=== PATIENT | female | born 1950 | race Caucasian/White ===

== ENCOUNTER 2020-07-26 10:07 | Outpatient (REF) | payer MEDICARE, SELFPAY ==
[2020-07-26 11:16] LABS: MANUAL DIFF FLAG NO
[2020-07-26 11:30] LABS: Basophils Absolute Auto 0.1 X10*3/uL (0.0-0.2); Basophils Percent Auto 0.8 % (0-2); Eosinophils Absolute Auto 0.3 X10*3/uL (0.0-0.4); Eosinophils Percent Auto 3.4 % (0-4); Hematocrit 34.8 % (37-47); Hemoglobin 10.6 g/dl (12.0-16.0); Imm Gran Abs Auto 0.13 X10*3/uL (0.00-0.03); Imm Gran Pct Auto 1.8 % (0.0-0.4); Lymphocytes Absolute Auto 1.1 X10*3/uL (1.2-4.9); Mean Corpuscular HGB Conc 30.5 g/dl (31.0-35.0); Mean Corpuscular Hemoglobin 28.5 pg (27.0-33.0); Mean Corpuscular Volume 93.5 fL (80-98); Mean Platelet Volume 10.3 fL (9.4-12.3); Monocytes Absolute Auto 0.6 X10*3/uL (0.1-1.2); Monocytes Percent Auto 8.6 % (2-11); Neutrophils Absolute Auto 5.1 X10*3/uL (2.0-8.3); Neutrophils Percent Auto 70.4 % (45-73); Platelet Count 334 X10*3/uL (160-400); Red Blood Count 3.72 X10*6/uL (4.20-5.50); Red Cell Distribution Width 19.1 % (11.0-16.0); White Blood Count 7.3 X10*3/uL (4.8-10.8)
[2020-07-26 12:34] LABS: Alanine Aminotransferase 15 U/L (0-31); Albumin Level 4.2 g/dL (3.5-5.0); Alkaline Phosphatase 68 U/L (39-117); Anion Gap 14 (12-20); Aspartate Amino Transferase 19 U/L (5-31); Bilirubin Total 0.6 mg/dL (0.0-1.0); Blood Urea Nitrogen 29 mg/dL (9-16); C Reactive Protein 0.91 mg/dL (< or = 0.50); Calcium 9.4 mg/dL (8.4-10.2); Carbon Dioxide 29 mmol/L (22-29); Chloride 103 mmol/L (96-108); Estimated Glomerular Filt Rate 27; Glucose Random 166 mg/dL (60-115); Sodium 140 mmol/L (135-145); Total Protein 6.4 g/dL (6.5-8.0)
[2020-07-30 15:26] LABS: IgA 142 mg/dL (70-320); IgG 643 mg/dL (600-1540); IgM 22 mg/dL (50-300)
[2020-07-30 15:52] LABS: Prot Elec - Albumin 3.6 g/dL (3.8-4.8); Prot Elec - Alpha1 0.4 g/dL (0.2-0.3); Prot Elec - Alpha2 0.9 g/dL (0.5-0.9); Prot Elec - Beta 1 0.5 g/dL (0.4-0.6); Prot Elec - Beta 2 0.3 g/dL (0.2-0.5); Prot Elec - Gamma 0.6 g/dL (0.8-1.7); Prot Elec - Total Protein 6.2 g/dL (6.1-8.1)
== END 2020-07-26 10:08 | disposition home or self-care (01) ==
LOC: HO.HMGCLDS 10:07
DX: M05.79 Rheumatoid arthritis with rheumatoid factor of multiple sites without organ or systems involvement (principal); Z79.899 Other long term (current) drug therapy
CPT/HCPCS: 36415; 80053; 82784; 84155; 84165; 85025; 86140; 86334; 86335

== ENCOUNTER 2020-07-27 09:51 | Outpatient (REF) | payer MEDICARE, SELFPAY ==
[2020-07-27 11:54] LABS: Potassium 5.6 mmol/l (3.3-5.1)
== END 2020-07-27 09:52 | disposition home or self-care (01) ==
LOC: HO.HMGCLDS 09:51
DX: E87.5 Hyperkalemia (principal)
CPT/HCPCS: 84132

== ENCOUNTER → 2020-08-10 09:25 | Outpatient (BNVA) | payer MEDICARE, SELFPAY | PROVIDERS: Visit Provider Student in an Organized Health Care Education/Training Program | DX: M05.9 Rheumatoid arthritis with rheumatoid factor, unspecified (principal); D80.1 Nonfamilial hypogammaglobulinemia; Z79.52 Long term (current) use of systemic steroids; Z79.899 Other long term (current) drug therapy | CPT/HCPCS: 99212 ==

== ENCOUNTER 2020-08-24 09:39 | Outpatient (REF) | payer MEDICARE, SELFPAY ==
--- NOTE | 2020-08-24 09:45 | XR_ITS ---
EXAMINATION: XR KNEE, RIGHT XR KNEE, LEFT CLINICAL INFORMATION: Rheumatoid arthritis. COMPARISON: 06/06/2019 TECHNIQUE: Four views of each knee, including AP and lateral upright views. FINDINGS: Left knee: No fracture or subluxation. There is mild medial compartment joint space narrowing. Compartmental joint spaces are otherwise maintained. Enthesophyte formation of the patella. No joint effusion. Right knee: No fracture or subluxation. Mild medial compartment joint space narrowing. Compartmental joint spaces are otherwise maintained. No joint effusion. Enthesophyte formation of the patella. XR/XR knee RT 4V IMPRESSION: Mild bilateral medial compartment joint space narrowing.
--- NOTE | 2020-08-24 09:45 | XR_ITS ---
EXAMINATION: XR KNEE, RIGHT XR KNEE, LEFT CLINICAL INFORMATION: Rheumatoid arthritis. COMPARISON: 06/06/2019 TECHNIQUE: Four views of each knee, including AP and lateral upright views. FINDINGS: Left knee: No fracture or subluxation. There is mild medial compartment joint space narrowing. Compartmental joint spaces are otherwise maintained. Enthesophyte formation of the patella. No joint effusion. Right knee: No fracture or subluxation. Mild medial compartment joint space narrowing. Compartmental joint spaces are otherwise maintained. No joint effusion. Enthesophyte formation of the patella. XR/XR knee LT 4V IMPRESSION: Mild bilateral medial compartment joint space narrowing.
[2020-08-24 11:29] LABS: Basophils Absolute Auto 0.1 X10*3/uL (0.0-0.2); Basophils Percent Auto 0.7 % (0-2); Eosinophils Absolute Auto 0.3 X10*3/uL (0.0-0.4); Eosinophils Percent Auto 2.2 % (0-4); Hematocrit 39.5 % (37-47); Hemoglobin 12.1 g/dl (12.0-16.0); Imm Gran Pct Auto 1.4 % (0.0-0.4); Lymphocytes Absolute Auto 2.4 X10*3/uL (1.2-4.9); Lymphocytes Percent Auto 16.3 % (20-40); MANUAL DIFF FLAG SCAN; Mean Corpuscular HGB Conc 30.6 g/dl (31.0-35.0); Mean Corpuscular Hemoglobin 28.9 pg (27.0-33.0); Mean Corpuscular Volume 94.3 fL (80-98); Mean Platelet Volume 10.8 fL (9.4-12.3); Monocytes Absolute Auto 1.8 X10*3/uL (0.1-1.2); Monocytes Percent Auto 11.8 % (2-11); Neutrophils Percent Auto 67.6 % (45-73); Platelet Count 303 X10*3/uL (160-400); Red Blood Count 4.19 X10*6/uL (4.20-5.50); Red Cell Distribution Width 15.9 % (11.0-16.0); SCAN SMEAR FLAG 1; White Blood Count 14.8 X10*3/uL (4.8-10.8)
[2020-08-24 11:54] LABS: Alanine Aminotransferase 14 U/L (0-31); Albumin Level 4.2 g/dL (3.5-5.0); Alkaline Phosphatase 65 U/L (39-117); Anion Gap 11 (12-20); Aspartate Amino Transferase 16 U/L (5-31); Bilirubin Total 0.5 mg/dL (0.0-1.0); Blood Urea Nitrogen 36 mg/dL (9-16); C Reactive Protein 0.86 mg/dL (< or = 0.50); Calcium 9.2 mg/dL (8.4-10.2); Carbon Dioxide 32 mmol/L (22-29); Chloride 103 mmol/L (96-108); Estimated Glomerular Filt Rate 33; Glucose Random 101 mg/dL (60-115); Potassium 5.1 mmol/l (3.3-5.1); Sodium 141 mmol/L (135-145); Total Protein 6.7 g/dL (6.5-8.0)
[2020-08-24 12:35] LABS: Erythrocyte Sedimentation Rate 19 MM/HR (0-20)
[2020-08-24 13:12] LABS: SLIDE REVIEW VERIFIED
== END 2020-08-24 09:40 | disposition home or self-care (01) ==
LOC: HO.HMGCX 09:39
PROVIDERS: Visit Provider Student in an Organized Health Care Education/Training Program
DX: M05.9 Rheumatoid arthritis with rheumatoid factor, unspecified (principal)
CPT/HCPCS: 36415; 73564; 80053; 85025; 85652; 86140

== ENCOUNTER → 2020-08-28 11:24 | Outpatient (BNVA) | payer MEDICARE, SELFPAY | PROVIDERS: Visit Provider Internal Medicine Endocrinology, Diabetes & Metabolism | DX: Z13.89 Encounter for screening for other disorder (principal) | CPT/HCPCS: Q3014 ==

== ENCOUNTER → 2020-10-10 12:23 | Outpatient (BNVA) | payer MEDICARE, SELFPAY | PROVIDERS: Visit Provider Student in an Organized Health Care Education/Training Program | DX: Z13.89 Encounter for screening for other disorder (principal) | CPT/HCPCS: Q3014 ==

== ENCOUNTER 2020-12-05 07:25 | Outpatient (REF) | payer MEDICARE, SELFPAY ==
[2020-12-05 11:25] LABS: MANUAL DIFF FLAG NO
[2020-12-05 11:38] LABS: Basophils Absolute Auto 0.1 X10*3/uL (0.0-0.2); Basophils Percent Auto 1.1 % (0-2); Eosinophils Absolute Auto 0.3 X10*3/uL (0.0-0.4); Eosinophils Percent Auto 3.3 % (0-4); Hematocrit 40.2 % (37-47); Hemoglobin 12.6 g/dl (12.0-16.0); Imm Gran Abs Auto 0.09 X10*3/uL (0.00-0.03); Imm Gran Pct Auto 0.9 % (0.0-0.4); Lymphocytes Absolute Auto 1.4 X10*3/uL (1.2-4.9); Lymphocytes Percent Auto 14.5 % (20-40); Mean Corpuscular HGB Conc 31.3 g/dl (31.0-35.0); Mean Corpuscular Volume 89.3 fL (80-98); Mean Platelet Volume 11.6 fL (9.4-12.3); Monocytes Percent Auto 9.8 % (2-11); Neutrophils Absolute Auto 6.9 X10*3/uL (2.0-8.3); Neutrophils Percent Auto 70.4 % (45-73); Platelet Count 250 X10*3/uL (160-400); Red Cell Distribution Width 14.3 % (11.0-16.0); White Blood Count 9.8 X10*3/uL (4.8-10.8)
[2020-12-05 11:54] LABS: Alanine Aminotransferase 15 U/L (0-31); Albumin Level 4.1 g/dL (3.5-5.0); Alkaline Phosphatase 72 U/L (39-117); Anion Gap 15 (12-20); Aspartate Amino Transferase 15 U/L (5-31); Bilirubin Total 0.5 mg/dL (0.0-1.0); Blood Urea Nitrogen 28 mg/dL (9-16); C Reactive Protein 1.44 mg/dL (< or = 0.50); Calcium 9.6 mg/dL (8.4-10.2); Carbon Dioxide 28 mmol/L (22-29); Chloride 103 mmol/L (96-108); Cholesterol 183 mg/dL; Estimated Glomerular Filt Rate 38; Glucose Random 183 mg/dL (60-115); HDL Cholesterol 51 mg/dL; Iron 68 mcg/dL (30-160); LDL Cholesterol Calculated 88 mg/dl; Percent Iron Saturation 22 % (15-50); Potassium 4.5 mmol/L (3.3-5.1); Sodium 141 mmol/L (135-145); Total Iron Binding Capacity 316 mcg/dL (228-428); Total Protein 6.6 g/dL (6.5-8.0); Triglycerides 222 mg/dL; Unsaturated Iron Binding 248 ug/dL
[2020-12-05 12:11] LABS: Erythrocyte Sedimentation Rate 31 MM/HR (0-20)
[2020-12-05 12:33] LABS: Creatinine Urine 159.04 mg/dL; Microalbum/Creatinine Ratio Ur 31.4 ug/mg cr
[2020-12-06 15:27] LABS: Prot Elec - Albumin 3.6 g/dL (3.8-4.8); Prot Elec - Alpha1 0.4 g/dL (0.2-0.3); Prot Elec - Beta 1 0.5 g/dL (0.4-0.6); Prot Elec - Beta 2 0.3 g/dL (0.2-0.5); Prot Elec - Gamma 0.7 g/dL (0.8-1.7); Prot Elec - Total Protein 6.4 g/dL (6.1-8.1)
[2020-12-08 14:32] LABS: IgA 201 mg/dL (70-320); IgG 653 mg/dL (600-1540); IgM 25 mg/dL (50-300)
== END 2020-12-05 07:26 | disposition home or self-care (01) ==
LOC: HO.HMGCLDS 07:25
PROVIDERS: PCP Internal Medicine; Visit Provider Student in an Organized Health Care Education/Training Program
DX: E11.42 Type 2 diabetes mellitus with diabetic polyneuropathy (principal); E11.21 Type 2 diabetes mellitus with diabetic nephropathy; Z79.4 Long term (current) use of insulin; I10 Essential (primary) hypertension; E78.5 Hyperlipidemia, unspecified; E66.01 Morbid (severe) obesity due to excess calories; Z68.41 Body mass index [BMI] 40.0-44.9, adult; R60.0 Localized edema
CPT/HCPCS: 36415; 80053; 80061; 82043; 82784; 82947; 83540; 84155; 84165; 85025; 85652; 86140; 86334; 99212

== ENCOUNTER 2020-12-05 13:09 | Emergency (ER) | payer MEDICARE, SELFPAY ==
--- NOTE | ~2020-12-05 | XR_ITS ---
EXAMINATION: XR CHEST CLINICAL INFORMATION: Congestive heart failure COMPARISON: Chest x-ray 10/02/2017 TECHNIQUE: Frontal portable view of the chest was obtained. 4:58 PM FINDINGS: No significant abnormality is noted involving the heart, lungs, mediastinum, bony thorax or soft tissues. XR/XR chest 1V IMPRESSION: Unremarkable examination.
--- NOTE | ~2020-12-05 | US_ITS ---
EXAMINATION: US VENOUS ULTRASOUND WITH DOPPLER LOWER EXTREMITY, LEFT CLINICAL INFORMATION: Pain COMPARISON: None TECHNIQUE: Ultrasound of the deep veins is performed from the hip to the calf with compression sonography and color and pulse Doppler assessment. Spectral analysis with color-flow imaging is performed. FINDINGS: There is normal venous compression and respiratory variation and augmented flow. The visualized common femoral vein, superficial femoral vein, profunda femoral vein, popliteal vein, and the trifurcation region shows no evidence of deep venous thrombosis. There is no significant popliteal fossa cyst. There is an enlarged left inguinal lymph node measuring 2.4 x 1.2 x 1.6 cm. If the patient's symptoms persist, followup ultrasound in 5 days 7 days might be of value to exclude proximal propagation from a non-visualized calf vein. US/US venous duplex LE LT IMPRESSION: No DVT demonstrated in the left lower extremity. Abnormally enlarged left inguinal lymph node, nonspecific, possibly reactive. Recommend clinical correlation.
--- NOTE | ~2020-12-05 | XR_ITS ---
EXAMINATION: LEFT LOWER LEG, LEFT KNEE AND LEFT HIP AND PELVIS X-RAYS CLINICAL INFORMATION: Fall COMPARISON: None TECHNIQUE: 2 views of the left lower leg, 4 views of the left knee and 3 views of the pelvis and left hip FINDINGS: Left lower leg: Bone alignment is normal. No fracture or dislocation is seen. Joint spaces are normal. There are calcaneal spurs. Soft tissues are otherwise normal. Left knee: Bone alignment is normal. No fracture or dislocation is seen. Joint spaces are normal. There is no joint effusion. There is evidence of atherosclerotic disease. Pelvis and left hip: Bone alignment is normal. No fracture or dislocation is seen. The hip joints are normal. There are degenerative changes of the visualized lower lumbar spine. Soft tissues are normal. XR/XR knee LT 2V IMPRESSION: No fracture or dislocation seen.
--- NOTE | ~2020-12-05 | XR_ITS ---
EXAMINATION: LEFT LOWER LEG, LEFT KNEE AND LEFT HIP AND PELVIS X-RAYS CLINICAL INFORMATION: Fall COMPARISON: None TECHNIQUE: 2 views of the left lower leg, 4 views of the left knee and 3 views of the pelvis and left hip FINDINGS: Left lower leg: Bone alignment is normal. No fracture or dislocation is seen. Joint spaces are normal. There are calcaneal spurs. Soft tissues are otherwise normal. Left knee: Bone alignment is normal. No fracture or dislocation is seen. Joint spaces are normal. There is no joint effusion. There is evidence of atherosclerotic disease. Pelvis and left hip: Bone alignment is normal. No fracture or dislocation is seen. The hip joints are normal. There are degenerative changes of the visualized lower lumbar spine. Soft tissues are normal. XR/XR hip LT w PEL1V IMPRESSION: No fracture or dislocation seen.
--- NOTE | ~2020-12-05 | XR_ITS ---
EXAMINATION: LEFT LOWER LEG, LEFT KNEE AND LEFT HIP AND PELVIS X-RAYS CLINICAL INFORMATION: Fall COMPARISON: None TECHNIQUE: 2 views of the left lower leg, 4 views of the left knee and 3 views of the pelvis and left hip FINDINGS: Left lower leg: Bone alignment is normal. No fracture or dislocation is seen. Joint spaces are normal. There are calcaneal spurs. Soft tissues are otherwise normal. Left knee: Bone alignment is normal. No fracture or dislocation is seen. Joint spaces are normal. There is no joint effusion. There is evidence of atherosclerotic disease. Pelvis and left hip: Bone alignment is normal. No fracture or dislocation is seen. The hip joints are normal. There are degenerative changes of the visualized lower lumbar spine. Soft tissues are normal. XR/XR tibia fibula LT 2V IMPRESSION: No fracture or dislocation seen.
[2020-12-05 13:19] VITALS: BP 160/66; PULSE 67; RESP 16; TEMP 36.6; O2SAT 98; BMI 45.7
--- NOTE | 2020-12-05 16:54 | ED.LOWEXIN ---
HPI - Extremity Injury (Lower) General Chief Complaint: Extremity Injury, Lower Stated Complaint: L LEG SWELLING Time Seen by Provider: 12/05/20 13:29 Source: patient History of Present Illness HPI Narrative: 70-year-old female with a past medical history of CKD, hyperlipidemia, hypertension, GERD, diabetes, edema, morbid obesity, neuropathy, presenting to the ED sent in by PCP for DVT rule out. Reports left lower extremity swelling and pain noted yesterday. Admits to mechanical fall while cleaning bath tub last fell on bilateral knees/left side, denies head trauma or LOC. denies numbness, tingling, weakness, urinary incontinence/retention, shortness of breath, chest pain, history of blood clots MD complaint: leg injury Related Data Home Medications Medication Instructions Recorded Confirmed acetaminophen 500 mg tablet 500 mg PO Q6H PRN 08/10/20 12/05/20 albuterol sulfate 90 mcg/actuation 2 puff INHALATION Q4-6H PRN 08/10/20 12/05/20 aerosol inhaler aspirin 81 mg tablet,delayed 81 mg PO DAILY 08/10/20 12/05/20 release calcium carbonate 600 mg calcium 600 mg PO BID 08/10/20 12/05/20 (1,500 mg) tablet coenzyme [id number] 100 mg-100 cap PO 08/10/20 12/05/20 unit capsule lansoprazole 15 mg capsule,delayed 15 mg PO DAILY 08/10/20 12/05/20 release blood sugar diagnostic #10 ea 08/28/20 12/05/20 pen needle, diabetic 32 gauge x #50 ea 08/28/20 12/05/20 5/32 sub-q insulin device, 40 unit #30 ea 08/28/20 12/05/20 flu vacc [id number](65yr up)-PF 240 ml IM ONCE 11/16/20 11/19/20 mcg/0.7 mL intramuscular syringe Previous Rx's Medication Instructions Recorded ferrous sulfate 325 mg (65 mg 325 mg PO DAILY #30 tab 07/27/20 iron) tablet insulin glargine 100 unit/mL (3 15 unit SUBCUT BEDTIME 90 Days #15 08/28/20 mL) subcutaneous pen ml insulin lispro 100 unit/mL See Rx Instructions SUBCUT DAILY 08/28/20 subcutaneous solution 90 Days #90 ml metformin 500 mg tablet 500 mg PO DAILY 90 Days #90 tab 08/28/20 sitagliptin 50 mg tablet 50 mg PO DAILY 90 Days #90 tab 08/28/20 leflunomide 20 mg tablet 20 mg PO DAILY #30 tab 10/10/20 prednisone 5 mg tablet 5 mg PO DAILY #30 tab 10/10/20 amlodipine 10 mg tablet 10 mg PO DAILY #90 tab 11/16/20 atenolol 50 mg tablet 50 mg PO DAILY #90 tab 11/16/20 bumetanide 1 mg tablet 1 mg PO DAILY #90 tab 11/16/20 gabapentin 300 mg capsule 300 mg PO BEDTIME #90 cap 11/16/20 lisinopril 40 mg tablet 40 mg PO DAILY #90 tab 11/16/20 pravastatin 40 mg tablet 40 mg PO BEDTIME #90 tab 11/16/20 Allergies Allergy/AdvReac Type Severity Reaction Status Date / Time codeine [Codeine] Allergy Severe DIFFICULTY Verified 11/19/20 01:02 BREATHING Penicillins AdvReac Unknown stomach Verified 11/19/20 01:02 upset Review of Systems Review of Systems: Constitutional: No Fever, No Chills, No Night Sweats Cardiovascular: No Chest Pain, No SOB, No Dyspnea on Exertion, + Edema Respiratory: No Cough, No Smoke Exposure, No Dyspnea Gastrointestinal: No Nausea, No Vomiting, No Diarrhea, No Constipation, No Abdominal pain, No Hematochezia, No Melena Genitourinary: No Dysuria, No Urinary Frequency, No Hematuria, No Urinary Incontinence/retention Musculoskeletal: +joint pain, No Myalgias, + Joint Swelling Skin: No Skin Lesions, No rash Neuro: No Weakness, No Numbness, No Paresthesias, No Loss of Consciousness, No Dizziness, No Headache Yes all other systems are reviewed and are negative [facility] Past Medical History Attestation statement: The following information was validated with the patient. 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 Morbid obesity due to excess calories Type 2 diabetes mellitus with diabetic polyneuropathy Surgical History History of back surgery Hx laparoscopic cholecystectomy Hx of cataract surgery Hx of colonoscopy Hx of tonsillectomy Family History Family History (Updated 12/05/20 @ 12:31 by Tricia Ramos MA) Mother Diabetes HTN (hypertension) CVD (cardiovascular disease) Father Hodgkin disease Social History Social History Alcohol intake: never Smoking Status: Former smoker Advance Directives: No Advance Directives Information Provided: Yes Physical Exam Vital Signs: Vital Signs: Last Vital Signs Temp 98 F 12/05/20 13:19 Pulse 67 12/05/20 13:19 Resp 16 12/05/20 13:19 BP 160/66 H 12/05/20 13:19 Pulse Ox 98 12/05/20 13:19 Body Mass Index 45.7 Const: General: cooperative and healthy appearing Orientation/consciousness: patient oriented x3 Limitations: no limitations HENMT: Head: Yes normal to inspection Ears: hearing grossly normal bilaterally General nose exam: Normal external nose present Face and sinus: Yes normal facial exam Eyes: General: appearance normal, both eyes and all related structures EOM: EOMs intact bilaterally Neck: Neck: Yes normal visual inspection Resp: Effort & Inspection: normal respiratory effort Auscultation: clear to auscultation bilaterally and no wheezes Cardio: Rate: regular rate Heart sounds: S1 normal heart sound present and S2 normal heart sound present Peripheral pulses: dorsalis pedis present GI: Inspection: Yes normal to inspection Palpation (GI): Soft to palpation and nontender Skin: Rashes: no rashes Neuro: General: patient oriented x3 and tone normal Extrem: Other: LLE with mild swelling. 2+ pitting edema. No calf ttp L hip with mild tenderness to palpation. Full range of motion intact Left knee with healing ecchymosis/ swelling. Limited flexion due to pain. Left lateral tipb/fib with tenderness to palpation and swelling L ankle/foot without ttp RLE 1+ pitting edema Course Course Course Narrative: -venous duplex negative for DVT in the left lower extremity. Abnormally enlarged left inguinal lymph node, nonspecific, possibly reactive >> patient denies UTI symptoms, symptoms. Discussed these findings with patient in close follow-up with PCP -left hip/pelvis, left knee, and left tib fib x-rays unremarkable -CXR unremarkable Results discussed with patient including worrisome signs and symptoms and strict return precautions. Patient is to follow up with PCP. She verbalized understanding feel safe for discharge home MDM - Extremity Injury (Lower) MDM Narrative Medical decision making narrative: 70-year-old female with a past medical history of CKD, hyperlipidemia, hypertension, GERD, diabetes, edema, morbid obesity, neuropathy, presenting to the ED sent in by PCP for DVT rule out. On exam VSS, NAD/well-appearing, physical exam as above. Concern for DVT vs bruising/inflammatory response from trauma. Lower concern for CHF. Rule out fracture. Plan: Venous duplex, x-rays, re-evaluate Medical Records Attestation: I reviewed the patient's medical records. Lab Data Attestation: I reviewed the patient's lab results. Discharge Plan Discharge Clinical Impression: Leg edema, left Knee contusion Qualifiers: Encounter type: initial encounter Laterality: left Qualified Code(s): S80.02XA - Contusion of left knee, initial encounter Patient Disposition: Home, Self-Care Instructions: Edema (ED) Additional Instructions: Your imaging studies were negative for any blood clots, or fractures today in the emergency department The ultrasound did show an enlarged inguinal lymph node on the left side, this should be evaluated by her primary care doctor Ice and elevate your leg Follow-up with her primary care doctor Take Tylenol at home for pain/swelling Is swelling persists or worsens, pain worsens, have weakness, any shortness of breath or chest pain return to the ED Prescriptions: No Action ferrous sulfate 325 mg (65 mg iron) tablet 325 mg PO DAILY Qty: 30 RF: 5 Fluzone HighDose Quad 20-21 PF 240 mcg/0.7 mL syringe IM ONCE RF: 0 amlodipine 10 mg tablet 10 mg PO DAILY Qty: 90 RF: 0 atenolol 50 mg tablet 50 mg PO DAILY Qty: 90 RF: 0 bumetanide 1 mg tablet 1 mg PO DAILY Qty: 90 RF: 0 gabapentin [Neurontin] 300 mg capsule 300 mg PO BEDTIME Qty: 90 RF: 0 lisinopril 40 mg tablet 40 mg PO DAILY Qty: 90 RF: 0 pravastatin 40 mg tablet 40 mg PO BEDTIME Qty: 90 RF: 0 leflunomide 20 mg tablet 20 mg PO DAILY Qty: 30 RF: 3 prednisone 5 mg tablet 5 mg PO DAILY Qty: 30 RF: 3 (DME) OneTouch Ultra Blue Test Strip Strip See Rx Instructions ea .ROUTE QID Qty: 10 RF: 0 (DME) V-GO 40 Device See Rx Instructions unit .ROUTE DAILY Qty: 30 RF: 0 (DME) pen needle, diabetic 32 gauge x 5/32 needle See Rx Instructions ea subcut DAILY Qty: 50 RF: 0 insulin glargine 100 unit/mL (3 mL) insulin pen 15 unit subcut BEDTIME 90 Days Qty: 15 RF: 1 insulin lispro 100 unit/mL solution See Rx Instructions subcut DAILY 90 Days Qty: 90 RF: 1 metformin 500 mg tablet 500 mg PO DAILY 90 Days Qty: 90 RF: 1 Januvia 50 mg tablet 50 mg PO DAILY 90 Days Qty: 90 RF: 1 albuterol sulfate 90 mcg/actuation HFA aerosol inhaler 2 puff inhalation Q4-6H PRNRF: 0 acetaminophen [Tylenol Extra Strength] 500 mg tablet 500 mg PO Q6H PRNRF: 0 aspirin [Adult Low Dose Aspirin] 81 mg tablet,delayed release (DR/EC) 81 mg PO DAILY RF: 0 coenzyme [id number] 100-100 mg-unit capsule PO RF: 0 lansoprazole [Prevacid] 15 mg capsule,delayed release(DR/EC) 15 mg PO DAILY RF: 0 calcium carbonate [Calcium 600] 600 mg calcium (1,500 mg) tablet 600 mg PO BID RF: 0 Referrals: Lyndsay Yan MD [Primary Care Provider] - 2 days
== END 2020-12-05 18:38 | disposition home or self-care (01) ==
PROVIDERS: Emergency Provider Emergency Medicine; PCP Internal Medicine
DX: S80.02XA Contusion of left knee, initial encounter (principal); R60.0 Localized edema; M25.562 Pain in left knee; M25.552 Pain in left hip; R06.02 Shortness of breath; I12.9 Hypertensive chronic kidney disease with stage 1 through stage 4 chronic kidney disease, or unspecified chronic kidney disease; E11.22 Type 2 diabetes mellitus with diabetic chronic kidney disease; N18.30 Chronic kidney disease, stage 3 unspecified; W18.2XXA Fall in (into) shower or empty bathtub, initial encounter; Y93.E9 Activity, other interior property and clothing maintenance; Y92.002 Bathroom of unspecified non-institutional (private) residence as the place of occurrence of the external cause; Y99.9 Unspecified external cause status; Z79.4 Long term (current) use of insulin; Z87.891 Personal history of nicotine dependence; Z79.899 Other long term (current) drug therapy; Z79.82 Long term (current) use of aspirin
CPT/HCPCS: 71045; 73502; 73560; 73590; 93971; 99284

== ENCOUNTER 2020-12-08 09:13 | Outpatient (REF) | payer MEDICARE, SELFPAY ==
[2020-12-11 14:27] LABS: PEU-Protein Creat Ratio Rand 0.086 (0.021-0.161); PEU-Rand. Prot/Creat Ratio 86 mg/g creat (21-161); PEU-Random Urine Creatinine 269 mg/dL (20-275); PEU-Random Urine Protein 23 mg/dL (5-24)
== END 2020-12-08 09:14 | disposition home or self-care (01) ==
LOC: HO.LAB 09:13
PROVIDERS: PCP Internal Medicine; Visit Provider Student in an Organized Health Care Education/Training Program
DX: D80.1 Nonfamilial hypogammaglobulinemia (principal)
CPT/HCPCS: 82570; 84156; 84166; 86335

== ENCOUNTER 2020-12-12 09:32 | Outpatient (REF) | payer MEDICARE, SELFPAY ==
[2020-12-12 11:56] LABS: HBS Num1 0.31 mIU/mL (0-7.99); HBc Num1 0.03 S/CO (0.00-0.79); Hepatitis A Antibody IgM 0.59 Index (0-0.79); Hepatitis B Core Antibody Nonreactive (Nonreactive); ~Hepatitis A Antibody IgM Nonreactive (Nonreactive); ~Hepatitis B Surface Antibody NONREACTIVE (Nonreactive)
[2020-12-12 12:00] LABS: ~HepC Num1 0.05 S/CO (0.00-0.79)
[2020-12-12 12:01] LABS: HBsAGNum1 0.12 S/CO (0.00-0.99); Hepatitis B Surface Antigen Negative (Negative); ~Hepatitis C Antibody Nonreactive (Nonreactive)
[2020-12-14 21:52] LABS: TS Negative Control Passed; TS Panel A 0; TS Panel B 0; TS Positive Control Passed; TSpotTB Negative (SeeBelow)
== END 2020-12-12 09:33 | disposition home or self-care (01) ==
LOC: HO.LAB 09:32
PROVIDERS: PCP Internal Medicine; Visit Provider Student in an Organized Health Care Education/Training Program
DX: M05.9 Rheumatoid arthritis with rheumatoid factor, unspecified (principal); D80.1 Nonfamilial hypogammaglobulinemia; Z79.52 Long term (current) use of systemic steroids; Z79.899 Other long term (current) drug therapy
CPT/HCPCS: 36415; 86481; 86704; 86706; 86709; 86803; 87340; 99212

== ENCOUNTER 2020-12-25 12:15 | Outpatient (REF) | payer MEDICARE, SELFPAY ==
--- NOTE | ~2020-12-25 | XR_ITS ---
EXAMINATION: XR KNEE, RIGHT CLINICAL INFORMATION: Pain right knee COMPARISON: Right knee 08/24/2020 TECHNIQUE: Four views of the right knee. FINDINGS: There is mild medial and patellofemoral compartment joint space narrowing with a moderate size anterior suprapatellar and calcified. No abnormal joint effusion seen. No loose bodies or bony erosive changes. No visible fracture. XR/XR knee RT 4V IMPRESSION: Mild early degenerative changes medial and patellofemoral compartment. The moderate size anterior suprapatellar enthesophyte. Minimal progression since 09/10/2020 exam.
== END 2020-12-25 12:16 | disposition home or self-care (01) ==
LOC: HO.HMGCX 12:15
PROVIDERS: PCP Internal Medicine; Visit Provider Hospitalist
DX: M25.561 Pain in right knee (principal)
CPT/HCPCS: 73564

== ENCOUNTER → 2021-01-10 08:56 | Outpatient (BNV) | payer MEDICARE, SELFPAY | PROVIDERS: PCP Internal Medicine; Referring Provider Student in an Organized Health Care Education/Training Program; Visit Provider Internal Medicine Medical Oncology | DX: C64.9 Malignant neoplasm of unspecified kidney, except renal pelvis (principal); D47.2 Monoclonal gammopathy; Z84.81 Family history of carrier of genetic disease | CPT/HCPCS: 99204; 99212; 99213; 99214 ==

== ENCOUNTER 2021-01-21 08:28 | Outpatient (REF) | payer MEDICARE, SELFPAY ==
--- NOTE | ~2021-01-21 | US_ITS ---
EXAMINATION: ULTRASOUND GUIDED BIOPSY LEFT INGUINAL LYMPH NODE CLINICAL INFORMATION: Abnormal left inguinal lymph node on ultrasound left lower extremity duplex study. COMPARISON: None TECHNIQUE: Following explaining ultrasound-guided left inguinal lymph node biopsy procedure, benefits and risk, a written consent was obtained. The patient was placed supine ultrasound table and preliminary ultrasound imaging was obtained. There is a large amount of belly fat hanging below the inguinal canal which was taped and held in position. However, unsuccessful. Manually the belly fat was held in position by additional portion with sterile gloves. Preliminary ultrasound was performed and optimal site was selected along the left groin. The area was marked, cleaned and draped in usual sterile manner. 1% lidocaine was injected puncture site. A 25-gauge needle connected to a syringe was advanced several times and ultrasound-guided fine-needle biopsy was performed. Also a 25-gauge spinal needle was utilized and 2 fine-needle biopsies were performed. Postprocedure complete hemostasis achieved. Patient tolerated procedure well. Preliminary pathology results revealed few lymph cells and fat present. Definite pathology results are pending. FINDINGS: There is hyper echoic lymph node left inguinal region. Successful fine-needle lymph node aspiration biopsy was performed with a 25-gauge needle followed by 25-gauge spinal needle. The biopsy was technically difficult due to overhanging large belly. US/US guided fine needle asp IMPRESSION: Difficult but successful ultrasound-guided left inguinal lymph node fine-needle biopsy/ aspiration performed.
== END 2021-01-21 08:29 | disposition home or self-care (01) ==
LOC: HO.US 08:28
PROVIDERS: Visit Provider Internal Medicine Medical Oncology
DX: R59.0 Localized enlarged lymph nodes (principal)
CPT/HCPCS: 10005; 36415; 88172; 88173; 88177; 88184; 88185; 88300; 88305

== ENCOUNTER 2021-02-04 12:25 | Outpatient (REF) | payer MEDICARE, SELFPAY ==
--- NOTE | ~2021-02-04 | XR_ITS ---
EXAMINATION: XR LUMBOSACRAL SPINE CLINICAL INFORMATION: Pain COMPARISON: Previous x-ray most recent October 2011 TECHNIQUE: Three views of the lumbosacral spine. FINDINGS: There is mild curvature of the lower lumbar spine to the left. Bone alignment is otherwise normal. There is degenerative disc disease at L4-L5 and L5-S1. There is lower lumbar spine facet arthritis. There is evidence of atherosclerotic disease. XR/XR lumbar spine 2-3V IMPRESSION: Degenerative changes.
== END 2021-02-04 12:26 | disposition home or self-care (01) ==
LOC: HO.HMGCX 12:25
PROVIDERS: PCP Internal Medicine; Visit Provider Internal Medicine
DX: M54.5 Low back pain (principal)
CPT/HCPCS: 72100

== ENCOUNTER 2021-02-18 10:39 | Outpatient (REF) | payer MEDICARE, SELFPAY ==
--- NOTE | ~2021-02-18 | US_ITS ---
EXAMINATION: US GUIDED LYMPH NODE BIOPSY CLINICAL INFORMATION: Left inguinal lymph node. COMPARISON: Previous exam 01/21/2021 TECHNIQUE: Procedure, risk and benefits including bleeding and infection were discussed with the patient, and informed consent was obtained. The left groin was prepped and draped in usual sterile fashion. The skin and soft tissues were anesthetized with 1% lidocaine plain. Using ultrasound guidance and a coaxial system, access to the left inguinal lymph node was obtained. Four 20-gauge core biopsies were obtained. There was no complication. FINDINGS: There is a 0.8 x 1.3 cm echogenic lesion in the left inguinal region probably representing a fatty replaced lymph node. This measured 1.1 x 1.6 cm in AP and transverse dimension on earliest exam November 2020. US/US biopsy lymph node IMPRESSION: Ultrasound-guided left inguinal lymph node core biopsy.
== END 2021-02-18 10:40 | disposition home or self-care (01) ==
LOC: HO.US 10:39
PROVIDERS: Visit Provider Internal Medicine Medical Oncology
DX: R59.0 Localized enlarged lymph nodes (principal)
CPT/HCPCS: 38505; 76942; 88305

== ENCOUNTER → 2021-02-20 09:46 | Outpatient (BNVA) | payer MEDICARE, SELFPAY | PROVIDERS: PCP Internal Medicine; Visit Provider Anesthesiology | DX: M96.1 Postlaminectomy syndrome, not elsewhere classified (principal); M48.061 Spinal stenosis, lumbar region without neurogenic claudication; M54.16 Radiculopathy, lumbar region; M47.816 Spondylosis without myelopathy or radiculopathy, lumbar region | CPT/HCPCS: 99202 ==

== ENCOUNTER → 2021-03-01 12:24 | Outpatient (BNVA) | payer MEDICARE, SELFPAY | PROVIDERS: PCP Internal Medicine; Visit Provider Internal Medicine Endocrinology, Diabetes & Metabolism | DX: E66.01 Morbid (severe) obesity due to excess calories (principal); I10 Essential (primary) hypertension; E78.5 Hyperlipidemia, unspecified | CPT/HCPCS: 82947; 99212 ==

== ENCOUNTER 2021-03-05 10:38 | Outpatient (REF) | payer MEDICARE, SELFPAY ==
[2021-03-05 14:03] LABS: MANUAL DIFF FLAG NO
[2021-03-05 14:14] LABS: Basophils Absolute Auto 0.1 X10*3/uL (0.0-0.2); Basophils Percent Auto 0.8 % (0-2); Eosinophils Absolute Auto 0.4 X10*3/uL (0.0-0.4); Eosinophils Percent Auto 3.7 % (0-4); Hematocrit 38.8 % (37-47); Hemoglobin 11.8 g/dl (12.0-16.0); Imm Gran Abs Auto 0.21 X10*3/uL (0.00-0.03); Imm Gran Pct Auto 2.2 % (0.0-0.4); Lymphocytes Absolute Auto 1.5 X10*3/uL (1.2-4.9); Lymphocytes Percent Auto 15.4 % (20-40); Mean Corpuscular HGB Conc 30.4 g/dl (31.0-35.0); Mean Corpuscular Hemoglobin 28.2 pg (27.0-33.0); Mean Corpuscular Volume 92.6 fL (80-98); Mean Platelet Volume 11.1 fL (9.4-12.3); Monocytes Percent Auto 9.9 % (2-11); Neutrophils Absolute Auto 6.6 X10*3/uL (2.0-8.3); Platelet Count 304 X10*3/uL (160-400); Red Blood Count 4.19 X10*6/uL (4.20-5.50); Red Cell Distribution Width 14.8 % (11.0-16.0); White Blood Count 9.7 X10*3/uL (4.8-10.8)
[2021-03-05 14:35] LABS: Alanine Aminotransferase 16 U/L (0-31); Alkaline Phosphatase 63 U/L (39-117); Anion Gap 13 (12-20); Aspartate Amino Transferase 16 U/L (5-31); Bilirubin Total 0.2 mg/dL (0.0-1.0); Blood Urea Nitrogen 24 mg/dL (9-16); C Reactive Protein 1.76 mg/dL (< or = 0.50); Calcium 9.4 mg/dL (8.4-10.2); Carbon Dioxide 28 mmol/L (22-29); Chloride 104 mmol/L (96-108); Estimated Glomerular Filt Rate 35; Glucose Random 213 mg/dL (60-115); Potassium 4.7 mmol/L (3.3-5.1); Sodium 140 mmol/L (135-145); Total Protein 6.2 g/dL (6.5-8.0)
[2021-03-05 15:02] LABS: Erythrocyte Sedimentation Rate 30 MM/HR (0-20)
== END 2021-03-05 10:39 | disposition home or self-care (01) ==
LOC: HO.HMGCLDS 10:38
PROVIDERS: PCP Internal Medicine; Visit Provider Student in an Organized Health Care Education/Training Program
DX: M05.9 Rheumatoid arthritis with rheumatoid factor, unspecified (principal)
CPT/HCPCS: 36415; 80053; 85025; 85652; 86140

== ENCOUNTER 2021-03-20 10:00 | Outpatient (RCR) | payer MEDICARE, SELFPAY ==
--- NOTE | 2021-01-29 12:07 | MHC.PT.EP ---
[facility] [place] Office [place] Office [place] Office [address] Elen Peralta [address] [phone] F: [phone] F: [phone] F: [phone] F: [phone] Physical Therapy Plan of Care Date of Evaluation: 01/29/21 Date of Surgery: Diagnosis: CHRONIC LEFT SIDED LBP W LEFT SCIATICA Assessment: 70 YO FEMALE W H/O FALLING IN 12/02, REF TO PT W EXACERBATION OF Lt L/S PAIN W RADICULAR SXS - OF NOTE, SHE IS ALSO UNDERGOING TESTS FOR ENLARGED LYMPH NODES IN LEFT GROIN. Pt RESIDES ALONE AND LEADS A SEDENTARY LIFESTYLE- SHE IS MOD INDEP W ADLs AND HER CURRENT LEFT LS/ LE SXS DIRECTLY LIMIT HER. SHE HAS DECR POSTURE, (+) PELVIC ASYMM W LLI, DECR Lt HS FLEXIB, WEAKNESS IN PROX LEs AND CORE REGION, AND 10/10 PAIN IN EARLY AM IN HER Lt LS AND LE. SHE CURRENTLY HAS MINIMAL DECR SENSATION IN Lt LAT THIGH, BUT NO ASSOC MOTOR DEFICITS. XRAYS REVEALED LS DJD, SOME SPURRING. Pt WOULD BENEFIT FROM A TRIAL OF PT TO ADDRESS PAIN MGMT WELL THE ABOVE AND MAXIMIZE THE LEVEL OF HER FUNCTIONAL INDEP. Frequency and Duration: The patient will be seen 2x WK x 5 WKS Short Term Goals: Pt'S Lt LS PAIN DECR TO 2-3/10 AND Lt RADIC SXS DECR BY 75% W REG ADLS IN 3 WKS Pt DEMON INDEP SELF CORRECT POSTURE/ POSITIONING/ DEMO PROPER BODY MECH W SIM ADLs IN 3 WKS Pt DEMON IMPROVED PELVIC SYMM W HEP OR W HEELLIFT IN 2 WKS [employer] Goals: Pt INDEP W HEP AND SELF-SX MGMT TECHN IN 5 WKS Pt REUME REG ADLS EVIDENT W IMPROVED OSWESTRY BY 5 POINTS (16/50 AT EVAL) IN 5 WKS Treatment Plan: Modalities to reduce pain, spasms and effusion. Manual therapy to restore motion and function. Therapeutic exercise to improve strength and flexibility. Neuromuscular re-education for posture and balance. Therapeutic activities to return to functional activities of daily living. Electronically signed by: Lucita Dominguez,PT Please sign and return to therapist. Thank you for your referral.
== END 2021-03-20 11:10 | disposition other institution (70) ==
LOC: HO.PTCHIC 10:00
PROVIDERS: PCP Internal Medicine; Visit Provider Nurse Practitioner Family
DX: M54.42 Lumbago with sciatica, left side (principal); G89.29 Other chronic pain
CPT/HCPCS: 97014; 97110; 97140; 97162; 97530

== ENCOUNTER → 2021-03-21 08:59 | Outpatient (BNVA) | payer MEDICARE, SELFPAY | PROVIDERS: PCP Internal Medicine; Visit Provider Student in an Organized Health Care Education/Training Program | DX: M05.9 Rheumatoid arthritis with rheumatoid factor, unspecified (principal); D80.1 Nonfamilial hypogammaglobulinemia; M70.62 Trochanteric bursitis, left hip | CPT/HCPCS: 20610; 99212 ==

== ENCOUNTER 2021-03-22 13:00 | Outpatient (REF) | payer MEDICARE, SELFPAY ==
--- NOTE | ~2021-03-22 | US_ITS ---
EXAMINATION: US VENOUS ULTRASOUND WITH DOPPLER LOWER EXTREMITY, LEFT CLINICAL INFORMATION: Swelling COMPARISON: None TECHNIQUE: Ultrasound of the deep veins is performed from the hip to the calf with compression sonography and color and pulse Doppler assessment. Spectral analysis with color-flow imaging is performed. FINDINGS: There is normal venous compression and respiratory variation and augmented flow. The visualized common femoral vein, superficial femoral vein, profunda femoral vein, popliteal vein, and the trifurcation region shows no evidence of deep venous thrombosis. There is no significant popliteal fossa cyst. If the patient's symptoms persist, followup ultrasound in 5 days 7 days might be of value to exclude proximal propagation from a non-visualized calf vein. US/US venous duplex LE IMPRESSION: No DVT demonstrated in the left lower extremity.
== END 2021-03-22 13:01 | disposition home or self-care (01) ==
LOC: HO.HMGCX 13:00
PROVIDERS: PCP Internal Medicine; Visit Provider Internal Medicine
DX: M79.89 Other specified soft tissue disorders (principal); E78.5 Hyperlipidemia, unspecified
CPT/HCPCS: 93971

== ENCOUNTER 2021-04-09 09:57 | Outpatient (REF) | payer MEDICARE, SELFPAY ==
[2021-04-09 11:36] LABS: MANUAL DIFF FLAG NO
[2021-04-09 12:02] LABS: Alanine Aminotransferase 14 U/L (0-31); Albumin Level 3.9 g/dL (3.5-5.0); Alkaline Phosphatase 62 U/L (39-117); Anion Gap 13 (12-20); Aspartate Amino Transferase 18 U/L (5-31); Bilirubin Total 0.3 mg/dL (0.0-1.0); Blood Urea Nitrogen 30 mg/dL (9-16); Calcium 9.3 mg/dL (8.4-10.2); Carbon Dioxide 28 mmol/L (22-29); Chloride 108 mmol/L (96-108); Cholesterol 174 mg/dL; Estimated Glomerular Filt Rate 35; Glucose Fasting 72 mg/dL (60-99); HDL Cholesterol 54 mg/dL; LDL Cholesterol Calculated 92 mg/dl; Potassium 5.5 mmol/L (3.3-5.1); Sodium 143 mmol/L (135-145); Total Protein 6.2 g/dL (6.5-8.0); Triglycerides 141 mg/dL
[2021-04-09 12:03] LABS: Basophils Absolute Auto 0.1 X10*3/uL (0.0-0.2); Basophils Percent Auto 0.7 % (0-2); Eosinophils Absolute Auto 0.2 X10*3/uL (0.0-0.4); Eosinophils Percent Auto 1.9 % (0-4); Hematocrit 38.5 % (37-47); Hemoglobin 11.8 g/dl (12.0-16.0); Imm Gran Pct Auto 1.6 % (0.0-0.4); Lymphocytes Absolute Auto 1.9 X10*3/uL (1.2-4.9); Lymphocytes Percent Auto 15.4 % (20-40); Mean Corpuscular HGB Conc 30.6 g/dl (31.0-35.0); Mean Corpuscular Hemoglobin 28.3 pg (27.0-33.0); Mean Corpuscular Volume 92.3 fL (80-98); Mean Platelet Volume 11.1 fL (9.4-12.3); Monocytes Absolute Auto 1.2 X10*3/uL (0.1-1.2); Monocytes Percent Auto 10.1 % (2-11); Neutrophils Absolute Auto 8.6 X10*3/uL (2.0-8.3); Neutrophils Percent Auto 70.3 % (45-73); Platelet Count 312 X10*3/uL (160-400); Red Blood Count 4.17 X10*6/uL (4.20-5.50); Red Cell Distribution Width 14.1 % (11.0-16.0); White Blood Count 12.2 X10*3/uL (4.8-10.8)
[2021-04-10 13:41] LABS: IgA 167 mg/dL (70-320); IgG 555 mg/dL (600-1540); IgM 26 mg/dL (50-300)
== END 2021-04-09 09:58 | disposition home or self-care (01) ==
LOC: HO.HMGCLDS 09:57
PROVIDERS: PCP Internal Medicine; Visit Provider Internal Medicine Medical Oncology
DX: E78.5 Hyperlipidemia, unspecified (principal); D47.2 Monoclonal gammopathy
CPT/HCPCS: 36415; 80053; 80061; 82784; 85025; 86334

== ENCOUNTER → 2021-05-15 09:46 | Outpatient (BNVA) | payer MEDICARE, SELFPAY | PROVIDERS: PCP Internal Medicine; Visit Provider Anesthesiology | DX: M96.1 Postlaminectomy syndrome, not elsewhere classified (principal); M48.061 Spinal stenosis, lumbar region without neurogenic claudication; M47.816 Spondylosis without myelopathy or radiculopathy, lumbar region; M54.16 Radiculopathy, lumbar region | CPT/HCPCS: 99212 ==

== ENCOUNTER 2021-05-16 09:28 | Outpatient (REF) | payer MEDICARE, SELFPAY ==
--- NOTE | ~2021-05-16 | MM_ITS ---
EXAMINATION: MM SCREENING DIGITAL BREAST TOMOSYNTHESIS, BILATERAL CLINICAL INFORMATION: Screening. Asymptomatic. The lifetime risk of breast cancer based on the Tyrer-Cuzick Model is 8%. COMPARISON: Mammography: 06/10/2018, 05/18/2017, 05/01/2016 TECHNIQUE: Digital breast tomosynthesis is performed in both the craniocaudal and mediolateral oblique views along with computer-aided detection (CAD). Synthesized 2D images are generated from the tomosynthesis. Additional bilateral CC and additional bilateral MLO views are provided. FINDINGS: There are scattered areas of fibroglandular density (ACR BI-RADS breast composition Category b). There is fibronodular parenchymal pattern is similar in distribution to prior studies. There is no developing density or significant mass. No interval architectural abnormality. There are numerous bilateral scattered benign round and coarse calcifications and some ductal secretory calcifications. The axilla and skin contours are unremarkable. There are no significant changes from prior exams. MM/MM tomosynthesis screening BI IMPRESSION: No significant changes from prior studies. ASSESSMENT: BI-RADS 2: Benign RECOMMENDATION: Routine annual mammography screening. This patient's information was entered into a reminder system with a target due date for their next mammogram.
== END 2021-05-16 09:29 | disposition home or self-care (01) ==
LOC: HO.MAMMO 09:28
PROVIDERS: PCP Internal Medicine; Visit Provider Internal Medicine
DX: Z12.31 Encounter for screening mammogram for malignant neoplasm of breast (principal)
CPT/HCPCS: 77063; 77067

== ENCOUNTER → 2021-06-11 12:21 | Outpatient (BNVA) | payer MEDICARE, SELFPAY | PROVIDERS: PCP Internal Medicine; Visit Provider Nurse Practitioner Gerontology | DX: E11.42 Type 2 diabetes mellitus with diabetic polyneuropathy (principal); I10 Essential (primary) hypertension; E78.5 Hyperlipidemia, unspecified; E66.01 Morbid (severe) obesity due to excess calories; Z79.4 Long term (current) use of insulin; Z68.41 Body mass index [BMI] 40.0-44.9, adult | CPT/HCPCS: 82947; 99212 ==

== ENCOUNTER 2021-06-13 11:29 | Outpatient (REF) | payer MEDICARE, SELFPAY ==
--- NOTE | ~2021-06-13 | XR_ITS ---
EXAMINATION: XR KNEE, LEFT CLINICAL INFORMATION: Left knee pain COMPARISON: December 05, 2020 and studies dating back to April 27, 2017 TECHNIQUE: Four views of the left knee. FINDINGS: 4 mm calcified density seen adjacent to the medial tibial spine has been present previously and appears to represent a loose body. Linear calcification is present about the anterior lateral soft tissues of the knee. There are vascular calcifications present. There is some calcification about the medial femoral condyle which may be related to previous medial collateral ligament injury. There is also some calcification about the lateral aspect of the patella which was not definitely seen previously and may be related to avulsion injury or spurring. No knee effusion is appreciated. There is mild narrowing of the medial joint space compartment. XR/XR knee LT 4V IMPRESSION: No effusion of the left knee identified. Findings of probable loose body and other changes of question medial collateral ligament injury and either spur or avulsion injury about the patella.
== END 2021-06-13 11:30 | disposition home or self-care (01) ==
LOC: HO.HMGCX 11:29
PROVIDERS: PCP Internal Medicine; Visit Provider Hospitalist
DX: Z13.89 Encounter for screening for other disorder (principal)
CPT/HCPCS: 73564

== ENCOUNTER 2021-06-18 09:21 | Outpatient (REF) | payer MEDICARE, SELFPAY ==
[2021-06-18 11:34] LABS: MANUAL DIFF FLAG NO
[2021-06-18 11:50] LABS: Basophils Absolute Auto 0.1 X10*3/uL (0.0-0.2); Basophils Percent Auto 0.4 % (0-2); Eosinophils Percent Auto 0.2 % (0-4); Hematocrit 40.3 % (37-47); Imm Gran Abs Auto 0.47 X10*3/uL (0.00-0.03); Imm Gran Pct Auto 3.4 % (0.0-0.4); Lymphocytes Percent Auto 14.2 % (20-40); Mean Corpuscular HGB Conc 32.3 g/dl (31.0-35.0); Mean Corpuscular Hemoglobin 28.6 pg (27.0-33.0); Mean Corpuscular Volume 88.8 fL (80-98); Mean Platelet Volume 11.7 fL (9.4-12.3); Monocytes Absolute Auto 1.4 X10*3/uL (0.1-1.2); Monocytes Percent Auto 10.2 % (2-11); Neutrophils Absolute Auto 9.9 X10*3/uL (2.0-8.3); Neutrophils Percent Auto 71.6 % (45-73); Platelet Count 311 X10*3/uL (160-400); Red Blood Count 4.54 X10*6/uL (4.20-5.50); Red Cell Distribution Width 14.5 % (11.0-16.0); White Blood Count 13.8 X10*3/uL (4.8-10.8)
[2021-06-18 12:06] LABS: Alanine Aminotransferase 18 U/L (0-31); Albumin Level 4.1 g/dL (3.5-5.0); Alkaline Phosphatase 69 U/L (39-117); Anion Gap 12 (12-20); Aspartate Amino Transferase 15 U/L (5-31); Bilirubin Total 0.5 mg/dL (0.0-1.0); Blood Urea Nitrogen 47 mg/dL (9-16); C Reactive Protein 0.28 mg/dL (< or = 0.50); Calcium 9.9 mg/dL (8.4-10.2); Carbon Dioxide 27 mmol/L (22-29); Chloride 104 mmol/L (96-108); Estimated Glomerular Filt Rate 28; Glucose Random 191 mg/dL (60-115); Potassium 4.9 mmol/L (3.3-5.1); Sodium 138 mmol/L (135-145); Total Protein 6.6 g/dL (6.5-8.0)
[2021-06-18 12:29] LABS: Erythrocyte Sedimentation Rate 11 MM/HR (0-20)
== END 2021-06-18 09:22 | disposition home or self-care (01) ==
LOC: HO.HMGCLDS 09:21
PROVIDERS: PCP Internal Medicine; Visit Provider Student in an Organized Health Care Education/Training Program
DX: M05.9 Rheumatoid arthritis with rheumatoid factor, unspecified (principal)
CPT/HCPCS: 36415; 80053; 85025; 85652; 86140

== ENCOUNTER → 2021-06-21 07:38 | Outpatient (BNVA) | payer MEDICARE, SELFPAY | PROVIDERS: PCP Internal Medicine; Visit Provider Student in an Organized Health Care Education/Training Program | CPT/HCPCS: Q3014 ==

== ENCOUNTER 2021-07-05 07:55 | Outpatient (REF) | payer MEDICARE, SELFPAY ==
--- NOTE | ~2021-07-05 | XR_ITS ---
EXAMINATION: LEFT KNEE CLINICAL INFORMATION: Pain left knee COMPARISON: None TECHNIQUE: Single sunrise view. FINDINGS: A single sunrise view left knee reveals loss of lateral compartment patellofemoral joint space with lateral patellar enthesophyte. No loose bodies or bony erosive changes seen. The soft tissues are normal. XR/XR knee LT 1V IMPRESSION: Mild degenerative changes lateral patellofemoral compartment with lateral patellar periarticular spurring.
== END 2021-07-05 07:56 | disposition home or self-care (01) ==
LOC: HO.HOSX 07:55
PROVIDERS: Visit Provider Physician Assistant
DX: M17.12 Unilateral primary osteoarthritis, left knee (principal); E11.42 Type 2 diabetes mellitus with diabetic polyneuropathy; Z79.4 Long term (current) use of insulin
CPT/HCPCS: 20610; 73560; 99202; J1020

== ENCOUNTER → 2021-08-16 09:36 | Outpatient (BNVA) | payer MEDICARE, SELFPAY | PROVIDERS: PCP Internal Medicine; Visit Provider Physician Assistant | DX: M17.12 Unilateral primary osteoarthritis, left knee (principal) | CPT/HCPCS: 99212 ==

== ENCOUNTER 2021-09-02 10:18 | Outpatient (REF) | payer MEDICARE, SELFPAY ==
--- NOTE | ~2021-09-02 | MR_ITS ---
EXAMINATION: MR KNEE WITHOUT CONTRAST, LEFT CLINICAL INFORMATION: Left knee pain and swelling. Osteoarthritis. COMPARISON: Multiple priors, most recent left knee radiographs dated 06/13/2021. TECHNIQUE: MRI of the knee without contrast was performed using routine sequences on a high-field scanner. FINDINGS: MENISCI: Medial Meniscus: Complete radial tear of the posterior root with a resultant meniscal gap measuring 0.6 cm in ML dimension. Medial extrusion of the meniscal body with intrasubstance degenerative signal throughout the posterior horn and body. Lateral Meniscus: Probable minimal inner margin fraying of the meniscal body as well as attenuation/tearing of the posterior root. LIGAMENTS: Cruciate: Mild degenerative signal associated with the anterior and posterior cruciate ligaments. Collateral: Thickening of the proximal medial collateral ligament, consistent with a remote injury. No acute ligament injury. Intact fibular collateral ligament. EXTENSOR MECHANISM: Intact ARTICULAR CARTILAGE/BONE: Patellofemoral Compartment: Lateral patellar facet articular cartilage signal heterogeneity with tiny foci of full-thickness fissuring. Central and lateral trochlear tiny foci of full-thickness fissuring with underlying subchondral cystic change. Small marginal osteophytes. Medial Compartment: Diffuse weightbearing articular cartilage thinning with signal heterogeneity and surface irregularity. Posterior non-weightbearing articular cartilage signal heterogeneity and fissuring with underlying subchondral cystic change. Tiny marginal osteophytes. Lateral Compartment: Mild weightbearing articular cartilage signal heterogeneity with tiny marginal osteophytes. JOINT FLUID AND BURSAE: Moderate joint effusion and small Duke's cyst. MUSCLES/TENDONS: Prominent distal semitendinosus tendinosis. MR/MR knee LT wo con IMPRESSION: 1. Avulsion of the medial meniscus posterior root with a resultant meniscal gap measuring 0.6 cm. Medial extrusion of the meniscal body with intrasubstance degenerative signal. 2. Possible minimal inner margin fraying of the lateral meniscal body as well as attenuation/tearing of the posterior root. 3. [id number]-[id number] medial as well as mild patellofemoral and lateral compartment osteophyte arthritis. Moderate joint effusion and small Duke's cyst. 4. Prominent distal semitendinosus tendinosis.
== END 2021-09-02 10:19 | disposition home or self-care (01) ==
LOC: HO.MRI 10:18
PROVIDERS: Visit Provider Physician Assistant
DX: M17.12 Unilateral primary osteoarthritis, left knee (principal)
CPT/HCPCS: 73721

== ENCOUNTER 2021-09-16 08:50 | Outpatient (REF) | payer MEDICARE, SELFPAY ==
[2021-09-16 12:06] LABS: Alanine Aminotransferase 17 U/L (0-31); Aspartate Amino Transferase 19 U/L (5-31); Cholesterol 195 mg/dL; HDL Cholesterol 54 mg/dL; LDL Cholesterol Calculated 96 mg/dl; Triglycerides 226 mg/dL
== END 2021-09-16 08:51 | disposition home or self-care (01) ==
LOC: HO.HMGCLDS 08:50
PROVIDERS: PCP Internal Medicine; Visit Provider Internal Medicine
DX: E78.5 Hyperlipidemia, unspecified (principal)
CPT/HCPCS: 36415; 80061; 84450; 84460

== ENCOUNTER → 2021-09-23 09:27 | Outpatient (BNVA) | payer MEDICARE, SELFPAY | PROVIDERS: PCP Internal Medicine; Visit Provider Physician Assistant | DX: M17.12 Unilateral primary osteoarthritis, left knee (principal) | CPT/HCPCS: 20610; 99212 ==

== ENCOUNTER 2021-09-26 08:43 | Outpatient (REF) | payer MEDICARE, SELFPAY ==
[2021-09-26 10:22] LABS: Basophils Absolute Auto 0.1 X10*3/uL (0.0-0.2); Basophils Percent Auto 0.6 % (0-2); Eosinophils Absolute Auto 0.2 X10*3/uL (0.0-0.4); Eosinophils Percent Auto 1.5 % (0-4); Hematocrit 40.2 % (37.0-47.0); Hemoglobin 12.7 g/dl (12.0-16.0); Imm Gran Abs Auto 0.09 X10*3/uL (0.00-0.03); Imm Gran Pct Auto 0.8 % (0.0-0.4); Lymphocytes Absolute Auto 1.2 X10*3/uL (1.2-4.9); Lymphocytes Percent Auto 10.8 % (20-40); MANUAL DIFF FLAG SCAN; Mean Corpuscular HGB Conc 31.6 g/dl (31.0-35.0); Mean Corpuscular Hemoglobin 28.8 pg (27.0-33.0); Mean Corpuscular Volume 91.2 fL (80.0-98.0); Mean Platelet Volume 10.9 fL (9.4-12.3); Monocytes Absolute Auto 1.8 X10*3/uL (0.1-1.2); Monocytes Percent Auto 16.3 % (2-11); Neutrophils Absolute Auto 7.7 x10*3/uL (2.0-8.3); Platelet Count 235 X10*3/uL (160-400); Red Blood Count 4.41 X10*6/uL (4.20-5.50); Red Cell Distribution Width 13.8 % (11.0-16.0); SCAN SMEAR FLAG 1
[2021-09-26 10:57] LABS: Alanine Aminotransferase 16 U/L (0-31); Albumin Level 3.9 g/dL (3.5-5.0); Alkaline Phosphatase 60 U/L (39-117); Anion Gap 13 (12-20); Aspartate Amino Transferase 18 U/L (5-31); Bilirubin Total 0.4 mg/dL (0.0-1.0); Blood Urea Nitrogen 25 mg/dL (9-16); C Reactive Protein 3.97 mg/dL (< or = 0.50); Calcium 9.5 mg/dL (8.4-10.2); Carbon Dioxide 26 mmol/L (22-29); Chloride 107 mmol/L (96-108); Estimated Glomerular Filt Rate 29; Glucose Random 194 mg/dL (60-115); Iron 23 mcg/dL (30-160); Percent Iron Saturation 8 % (15-50); Potassium 5.2 mmol/L (3.3-5.1); Sodium 141 mmol/L (135-145); Total Iron Binding Capacity 304 mcg/dL (228-428); Total Protein 6.4 g/dL (6.5-8.0); Unsaturated Iron Binding 281 ug/dL
[2021-09-26 11:14] LABS: SLIDE REVIEW VERIFIED
[2021-09-26 11:18] LABS: Ferritin 83 ng/mL (10-250)
[2021-09-26 11:38] LABS: Erythrocyte Sedimentation Rate 33 MM/HR (0-20)
== END 2021-09-26 08:44 | disposition home or self-care (01) ==
LOC: HO.LAB 08:43
PROVIDERS: PCP Internal Medicine; Visit Provider Nurse Practitioner Family
DX: M05.9 Rheumatoid arthritis with rheumatoid factor, unspecified (principal); D64.9 Anemia, unspecified; D80.1 Nonfamilial hypogammaglobulinemia; E11.9 Type 2 diabetes mellitus without complications; Z87.891 Personal history of nicotine dependence; Z79.4 Long term (current) use of insulin; Z79.899 Other long term (current) drug therapy
CPT/HCPCS: 36415; 80053; 82728; 83540; 85025; 85652; 86140; 99212

== ENCOUNTER 2021-09-27 15:00 | Outpatient (REF) | payer MEDICARE, SELFPAY | END 2021-09-27 15:01 | disposition home or self-care (01) | LOC: HO.LNP 15:00 | PROVIDERS: Visit Provider Internal Medicine | DX: Z13.89 Encounter for screening for other disorder (principal) ==

== ENCOUNTER 2021-10-01 17:50 | Outpatient (REF) | payer MEDICARE, SELFPAY ==
[2021-10-01 18:46] LABS: Influenza A PCR NEGATIVE (Negative); Influenza B PCR NEGATIVE (Negative); Resp Syncy Virus RNA Qual PCR NEGATIVE (Negative); SARS COV2 PCR INHOUSE NEGATIVE (Negative)
== END 2021-10-01 17:51 | disposition home or self-care (01) ==
LOC: HO.LNP 17:50
PROVIDERS: Visit Provider Internal Medicine
DX: Z20.822 Contact with and (suspected) exposure to COVID-19 (principal); R43.9 Unspecified disturbances of smell and taste
CPT/HCPCS: 0241U

== ENCOUNTER → 2021-10-22 12:19 | Outpatient (BNVA) | payer MEDICARE, SELFPAY | PROVIDERS: PCP Internal Medicine; Visit Provider Nurse Practitioner Gerontology | DX: E11.42 Type 2 diabetes mellitus with diabetic polyneuropathy (principal); E78.5 Hyperlipidemia, unspecified; E66.01 Morbid (severe) obesity due to excess calories; I10 Essential (primary) hypertension; Z79.4 Long term (current) use of insulin; Z68.41 Body mass index [BMI] 40.0-44.9, adult | CPT/HCPCS: 82947; 99212 ==

== ENCOUNTER 2021-12-26 08:47 | Outpatient (REF) | payer MEDICARE, SELFPAY ==
[2021-12-26 10:11] LABS: Basophils Absolute Auto 0.1 X10*3/uL (0.0-0.2); Basophils Percent Auto 0.6 % (0-2); Eosinophils Absolute Auto 0.3 X10*3/uL (0.0-0.4); Hematocrit 43.1 % (37.0-47.0); Hemoglobin 13.5 g/dl (12.0-16.0); Imm Gran Pct Auto 1.8 % (0.0-0.4); Lymphocytes Absolute Auto 1.6 X10*3/uL (1.2-4.9); MANUAL DIFF FLAG NO; Mean Corpuscular HGB Conc 31.3 g/dl (31.0-35.0); Mean Corpuscular Hemoglobin 28.2 pg (27.0-33.0); Mean Platelet Volume 10.5 fL (9.4-12.3); Monocytes Absolute Auto 1.2 X10*3/uL (0.1-1.2); Monocytes Percent Auto 10.7 % (2-11); Neutrophils Absolute Auto 7.7 x10*3/uL (2.0-8.3); Neutrophils Percent Auto 69.9 % (45-73); Platelet Count 277 X10*3/uL (160-400); Red Blood Count 4.79 X10*6/uL (4.20-5.50); Red Cell Distribution Width 14.6 % (11.0-16.0); White Blood Count 11.1 X10*3/uL (4.8-10.8)
[2021-12-26 10:48] LABS: Alanine Aminotransferase 21 U/L (0-31); Albumin Level 4.2 g/dL (3.5-5.0); Alkaline Phosphatase 69 U/L (39-117); Anion Gap 16 (12-20); Aspartate Amino Transferase 22 U/L (5-31); Bilirubin Total 0.4 mg/dL (0.0-1.0); Blood Urea Nitrogen 36 mg/dL (9-16); C Reactive Protein 0.74 mg/dL (< or = 0.50); Calcium 10.3 mg/dL (8.4-10.2); Carbon Dioxide 27 mmol/L (22-29); Chloride 105 mmol/L (96-108); Estimated Glomerular Filt Rate 29; Glucose Random 161 mg/dL (60-115); Potassium 5.5 mmol/L (3.3-5.1); Sodium 142 mmol/L (135-145)
[2021-12-26 10:49] LABS: Erythrocyte Sedimentation Rate 30 MM/HR (0-20)
[2021-12-26 10:57] LABS: Creatinine Urine 39.11 mg/dL; Microalbum/Creatinine Ratio Ur 43.4 ug/mg cr
== END 2021-12-26 08:48 | disposition home or self-care (01) ==
LOC: HO.LAB 08:47
PROVIDERS: Nurse Practitioner Gerontology; PCP Internal Medicine; Visit Provider Nurse Practitioner Family
DX: M05.9 Rheumatoid arthritis with rheumatoid factor, unspecified (principal); D80.1 Nonfamilial hypogammaglobulinemia; E11.42 Type 2 diabetes mellitus with diabetic polyneuropathy; Z79.4 Long term (current) use of insulin
CPT/HCPCS: 36415; 80053; 82043; 85025; 85652; 86140; 99212

== ENCOUNTER → 2022-01-07 12:26 | Outpatient (BNVA) | payer MEDICARE, SELFPAY | PROVIDERS: PCP Internal Medicine; Visit Provider Registered Nurse Diabetes Educator | DX: E11.22 Type 2 diabetes mellitus with diabetic chronic kidney disease (principal); N18.30 Chronic kidney disease, stage 3 unspecified; Z79.4 Long term (current) use of insulin | CPT/HCPCS: 95250 ==

== ENCOUNTER 2022-01-15 13:36 | Outpatient (REF) | payer MEDICARE, SELFPAY ==
[2022-01-15 17:04] LABS: Anion Gap 15 (12-20); Blood Urea Nitrogen 33 mg/dL (9-16); Carbon Dioxide 28 mmol/L (22-29); Chloride 101 mmol/L (96-108); Cholesterol 190 mg/dL; Estimated Glomerular Filt Rate 32; Glucose Random 132 mg/dL (60-115); HDL Cholesterol 57 mg/dL; LDL Cholesterol Calculated 82 mg/dl; Potassium 4.9 mmol/L (3.3-5.1); Sodium 139 mmol/L (135-145); Triglycerides 255 mg/dL
== END 2022-01-15 13:37 | disposition home or self-care (01) ==
LOC: HO.HMGCLDS 13:36
PROVIDERS: Visit Provider Internal Medicine
DX: E11.42 Type 2 diabetes mellitus with diabetic polyneuropathy (principal); E87.5 Hyperkalemia; N18.30 Chronic kidney disease, stage 3 unspecified
CPT/HCPCS: 36415; 80048; 80061

== ENCOUNTER → 2022-01-21 12:22 | Outpatient (BNVA) | payer MEDICARE, SELFPAY | PROVIDERS: PCP Internal Medicine; Visit Provider Nurse Practitioner Gerontology | DX: E11.42 Type 2 diabetes mellitus with diabetic polyneuropathy (principal); E11.3599 Type 2 diabetes mellitus with proliferative diabetic retinopathy without macular edema, unspecified eye; E11.22 Type 2 diabetes mellitus with diabetic chronic kidney disease; I12.9 Hypertensive chronic kidney disease with stage 1 through stage 4 chronic kidney disease, or unspecified chronic kidney disease; N18.30 Chronic kidney disease, stage 3 unspecified; E78.5 Hyperlipidemia, unspecified; E66.01 Morbid (severe) obesity due to excess calories; M06.9 Rheumatoid arthritis, unspecified; K21.9 Gastro-esophageal reflux disease without esophagitis; Z68.41 Body mass index [BMI] 40.0-44.9, adult; Z87.891 Personal history of nicotine dependence; Z88.6 Allergy status to analgesic agent; Z88.0 Allergy status to penicillin; Z79.82 Long term (current) use of aspirin; Z79.4 Long term (current) use of insulin; Z79.52 Long term (current) use of systemic steroids; Z79.899 Other long term (current) drug therapy | CPT/HCPCS: 82947; 83036; Q3014 ==

== ENCOUNTER 2022-03-28 09:42 | Outpatient (REF) | payer MEDICARE, SELFPAY ==
[2022-03-28 10:02] LABS: MANUAL DIFF FLAG NO
[2022-03-28 10:31] LABS: Basophils Absolute Auto 0.1 X10*3/uL (0.0-0.2); Basophils Percent Auto 1.1 % (0-2); Eosinophils Absolute Auto 0.5 X10*3/uL (0.0-0.4); Eosinophils Percent Auto 5.6 % (0-4); Hematocrit 40.2 % (37.0-47.0); Hemoglobin 12.9 g/dl (12.0-16.0); Imm Gran Abs Auto 0.13 X10*3/uL (0.00-0.03); Imm Gran Pct Auto 1.4 % (0.0-0.4); Lymphocytes Absolute Auto 1.4 X10*3/uL (1.2-4.9); Lymphocytes Percent Auto 15.1 % (20-40); Mean Corpuscular HGB Conc 32.1 g/dl (31.0-35.0); Mean Corpuscular Hemoglobin 28.5 pg (27.0-33.0); Mean Corpuscular Volume 88.7 fL (80.0-98.0); Monocytes Absolute Auto 1.3 X10*3/uL (0.1-1.2); Monocytes Percent Auto 13.5 % (2-11); Neutrophils Absolute Auto 5.9 x10*3/uL (2.0-8.3); Neutrophils Percent Auto 63.3 % (45-73); Platelet Count 265 X10*3/uL (160-400); Red Blood Count 4.53 X10*6/uL (4.20-5.50); Red Cell Distribution Width 14.8 % (11.0-16.0); White Blood Count 9.4 X10*3/uL (4.8-10.8)
[2022-03-28 11:08] LABS: Erythrocyte Sedimentation Rate 29 MM/HR (0-20)
[2022-03-28 11:36] LABS: Alanine Aminotransferase 14 U/L (0-31); Albumin Level 4.2 g/dL (3.5-5.0); Anion Gap 14 (12-20); Aspartate Amino Transferase 17 U/L (5-31); Bilirubin Total 0.4 mg/dL (0.0-1.0); Blood Urea Nitrogen 39 mg/dL (9-16); C Reactive Protein 0.87 mg/dL (< or = 0.50); Calcium 9.9 mg/dL (8.4-10.2); Carbon Dioxide 26 mmol/L (22-29); Chloride 107 mmol/L (96-108); Estimated Glomerular Filt Rate 26; Glucose Random 157 mg/dL (60-115); Potassium 6.1 mmol/L (3.3-5.1); Sodium 141 mmol/L (135-145)
[2022-03-28 11:37] LABS: Alkaline Phosphatase 73 U/L (39-117)
== END 2022-03-28 09:43 | disposition home or self-care (01) ==
LOC: HO.LAB 09:42
PROVIDERS: PCP Internal Medicine; Visit Provider Nurse Practitioner Family
DX: M05.9 Rheumatoid arthritis with rheumatoid factor, unspecified (principal); D80.1 Nonfamilial hypogammaglobulinemia
CPT/HCPCS: 36415; 80053; 85025; 85652; 86140; 99212

== ENCOUNTER 2022-04-05 19:27 | Emergency (ER) | payer MEDICARE, SELFPAY ==
[2022-04-05 19:31] VITALS: BP 120/51; PULSE 72; RESP 18; TEMP 36.8; O2SAT 94; BMI 39.8
--- NOTE | 2022-04-05 19:37 | ECG_ITS ---
Test Reason : ABNORMAL LABS Blood Pressure : / mmHG Vent. Rate : 065 BPM Atrial Rate : 065 BPM P-R Int : 168 ms QRS Dur : 076 ms QT Int : 408 ms P-R-T Axes : 052 009 027 degrees QTc Int : 424 ms Normal sinus rhythm Low voltage QRS Borderline ECG When compared with ECG of 29-NOV-2015 21:23, No significant change was found Referred By: Generic ED Physician Electronically Signed By:MANUEL ROBLES MD
[2022-04-05 20:13] LABS: Basophils Absolute Auto 0.1 X10*3/uL (0.0-0.2); Basophils Percent Auto 0.7 % (0-2); Eosinophils Absolute Auto 0.6 X10*3/uL (0.0-0.4); Eosinophils Percent Auto 5.2 % (0-4); Hematocrit 39.8 % (37.0-47.0); Hemoglobin 12.8 g/dl (12.0-16.0); Imm Gran Abs Auto 0.11 X10*3/uL (0.00-0.03); Lymphocytes Absolute Auto 2.4 X10*3/uL (1.2-4.9); Lymphocytes Percent Auto 22.8 % (20-40); MANUAL DIFF FLAG SCAN; Mean Corpuscular HGB Conc 32.2 g/dl (31.0-35.0); Mean Corpuscular Hemoglobin 27.8 pg (27.0-33.0); Mean Corpuscular Volume 86.5 fL (80.0-98.0); Mean Platelet Volume 10.8 fL (9.4-12.3); Monocytes Absolute Auto 1.6 X10*3/uL (0.1-1.2); Monocytes Percent Auto 15.3 % (2-11); Neutrophils Absolute Auto 5.8 x10*3/uL (2.0-8.3); Platelet Count 292 X10*3/uL (160-400); Red Cell Distribution Width 14.7 % (11.0-16.0); SCAN SMEAR FLAG 1; White Blood Count 10.5 X10*3/uL (4.8-10.8)
[2022-04-05 20:30] LABS: Alanine Aminotransferase 13 U/L (0-31); Albumin Level 4.2 g/dL (3.5-5.0); Alkaline Phosphatase 75 U/L (39-117); Anion Gap 19 (12-20); Aspartate Amino Transferase 18 U/L (5-31); Bilirubin Total 0.4 mg/dL (0.0-1.0); Blood Urea Nitrogen 55 mg/dL (9-16); Calcium 9.6 mg/dL (8.4-10.2); Carbon Dioxide 20 mmol/L (22-29); Chloride 103 mmol/L (96-108); Creatinine Clr Calc Pharmacy 23.8; Estimated Glomerular Filt Rate 18; Glucose Random 150 mg/dL (60-115); Potassium 5.5 mmol/L (3.3-5.1); Sodium 136 mmol/L (135-145); Total Protein 7.2 g/dL (6.5-8.0)
[2022-04-05 20:49] LABS: SLIDE REVIEW VERIFIED
--- NOTE | 2022-04-06 00:27 | ED_ITS ---
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 Symptoms since prior visit: no new symptoms Context: called for abnormal lab result Associated symptoms: none Related Data Home Medications Medication Instructions Recorded Confirmed acetaminophen 500 mg tablet 500 mg PO Q6H PRN Pain 08/10/20 03/28/22 (Tylenol Extra Strength) albuterol sulfate 90 mcg/actuation 2 puff inhalation Q4-6H PRN 08/10/20 03/28/22 aerosol inhaler Wheezing aspirin 81 mg tablet,delayed 81 mg PO DAILY 08/10/20 03/28/22 release (Adult Low Dose Aspirin) calcium carbonate 600 mg calcium 600 mg PO BID 08/10/20 03/28/22 (1,500 mg) tablet (Calcium) coenzyme K58-[id number] E 100 mg-100 1 cap PO DAILY 08/10/20 03/28/22 unit capsule lansoprazole 15 mg capsule,delayed 15 mg PO DAILY 08/10/20 03/28/22 release (Prevacid) sodium zirconium cyclosilicate 10 10 g PO DAILY 01/15/22 03/28/22 gram oral powder packet (Lokelma) Previous Rx's Medication Instructions Recorded ferrous sulfate 325 mg (65 mg 325 mg PO DAILY #90 tabs 01/15/21 iron) tablet pen needle, diabetic 32 gauge x #100 ea 03/01/21 sub-q insulin device, 40 unit #30 ea 07/18/21 (V-GO 40) sitagliptin 50 mg tablet (Januvia) 50 mg PO DAILY 90 days #90 tabs 10/15/21 blood sugar diagnostic (OneTouch #300 ea 10/22/21 Ultra Test) insulin glargine U-300 conc 300 40 unit (0.1333 mL) subcut BEDTIME 10/22/21 unit/mL (3 mL) subcutaneous pen 90 days #12 mL (Toujeo Max U-300 SoloStar) pravastatin 40 mg tablet 40 mg PO BEDTIME #90 tabs 11/04/21 bumetanide 1 mg tablet 1 mg PO DAILY #90 tabs 01/09/22 gabapentin 300 mg capsule 300 mg PO BEDTIME #90 caps 01/27/22 (Neurontin) leflunomide 10 mg tablet 10 mg PO DAILY #90 tabs 02/05/22 atenolol 50 mg tablet 50 mg PO DAILY #90 tabs 02/28/22 lisinopril 40 mg tablet 40 mg PO DAILY #90 tabs 03/11/22 amlodipine 10 mg tablet 10 mg PO DAILY #90 tabs 03/17/22 albuterol sulfate 90 mcg/actuation 2 puff inhalation Q6H PRN 03/25/22 aerosol inhaler (ProAir HFA) shortness of breath or wheezing #8.5 grams adalimumab 40 mg/0.8 mL See Rx Instructions subcut 03/28/22 subcutaneous syringe kit (Humira) .COMPLEX #6 ea prednisone 1 mg tablet 1 mg PO DAILY #30 tabs 03/28/22 insulin lispro 100 unit/mL See Rx Instructions subcut DAILY 04/02/22 subcutaneous solution (Humalog #70 mL U-100 Insulin) Allergies Allergy/AdvReac Type Severity Reaction Status Date / Time codeine [Codeine] Allergy Severe DIFFICULTY Verified 03/28/22 09:17 BREATHING Penicillins AdvReac Intermediate stomach Verified 03/28/22 09:17 upset Review of Systems Review of Systems: Constitutional : No Fever, No Chills, No Fatigue, No Malaise ENT/Mouth : No sore throat, No Rhinorrhea Eyes: No Eye Pain, No Swelling, No Redness Cardiovascular : No Chest Pain, No SOB Respiratory : No Cough, No Sputum, No Wheezing Gastrointestinal : No Nausea, No Vomiting, No Diarrhea, No Constipation, No abdominal Pain Genitourinary : No Dysuria, No Urinary Frequency, No Hematuria, Musculoskeletal : No joint pain, No Myalgias, No Joint Swelling Skin : No Skin Lesions, No rash Neuro : No Weakness, No Numbness, No Dizziness, No Headache Psych : No Anxiety/Panic, No Depression Heme/Lymph: No Bruising, No Bleeding,No Lymphadenopathy Endocrine : No Polyuria, No Polydipsia All other systems reviewed and are negative [facility] Past Medical History Attestation statement: The following information was validated with the patient. Medical History Bronchitis CKD (chronic kidney disease) stage 3, GFR 30-59 ml/min Dyslipidemia Essential hypertension GERD (gastroesophageal reflux disease) 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 mellitus) MGUS (monoclonal gammopathy of unknown significance) Surgical History History of back surgery Hx laparoscopic cholecystectomy Hx of cataract surgery Hx of colonoscopy Hx of tonsillectomy Family History Family History Mother Diabetes HTN (hypertension) CVD (cardiovascular disease) Father Hodgkin disease Social History [facility] Alcohol intake: never Patient Tobacco Use Status: Former Tobacco user Tobacco use type: Cigarette Cigarettes Per Day: 50 Years Smoked: 20 e-Cigarette/Vaping Use: Never Used Advance Directives: No Advance Directives Information Provided: No Current occupational status: retired Cognitive needs: No Hearing needs: No Vision needs: No Physical Exam Vital Signs: Vital Signs: Last Vital Signs Temp 98.3 F 04/05/22 19:31 Pulse 72 04/05/22 19:31 Resp 18 04/05/22 19:31 BP 120/51 L 04/05/22 19:31 Pulse Ox 94 04/05/22 19:31 O2 Del Method 04/05/22 19:31 BMI result Body Mass Index 39.8 Appearance: Alert. Oriented X3. No acute distress. Eyes: Pupils equal, round and reactive to light. ENT: Pharynx normal. Neck: Normal inspection. Neck supple. CVS: Normal heart rate and rhythm. Pulses normal. Respiratory: No respiratory distress. Breath sounds normal. Abdomen: Soft and non-tender. Skin: Skin warm and dry. Normal skin color. Normal skin turgor. Extremities: No lower extremity edema. No calf ttp Neuro: Oriented X 3. No motor deficit. No sensory deficit. Course Course Course Narrative: Cr improved, K improved stable for DC MDM - Recheck/Abnormal Lab/Rx MDM Narrative Medical decision making narrative: 71 yo female with hx of HTN, DM, HLD, CKD here with c/o K 6.1 noted on 03/28 but couldn't make it in. She has complaints other than she cannot afford her lokelma. She has mild SHIRA will hydrate and recheck her Cr - no UTI symptoms no back pain or abdominal pain to suggest obstructive uropathy she admits to not drinking enough water but denies n/v. Will dose with lokelma as well here. Night dose of lantus. Dispo per results and recheck of Cr. Lab Data Result diagrams: 04/05/22 19:44 04/06/22 03:32 Labs: Lab Results 04/05/22 04/05/22 04/06/22 Range/Units 19:44 19:44 00:54 WBC 10.5 (4.8-10.8) X10*3/uL RBC 4.60 (4.20-5.50) X10*6/uL Hgb 12.8 (12.0-16.0) g/dl Hct 39.8 (37.0-47.0) % MCV 86.5 (80.0-98.0) fL MCH 27.8 (27.0-33.0) pg MCHC 32.2 (31.0-35.0) g/dl RDW 14.7 (11.0-16.0) % Plt Count 292 (160-400) X10*3/uL MPV 10.8 (9.4-12.3) fL Immature Gran % (Auto) 1.0 H (0.0-0.4) % Neut % (Auto) 55.0 (45-73) % Lymph % (Auto) 22.8 (20-40) % Menard % (Auto) 15.3 H (2-11) % Eos % (Auto) 5.2 H (0-4) % Baso % (Auto) 0.7 (0-2) % Lymph # (Auto) 2.4 (1.2-4.9) X10*3/uL Menard # (Auto) 1.6 H (0.1-1.2) X10*3/uL Eos # (Auto) 0.6 H (0.0-0.4) X10*3/uL Baso # (Auto) 0.1 (0.0-0.2) X10*3/uL Abs Immat Gran (auto) 0.11 H (0.00-0.03) X10*3/uL Absolute Neuts (auto) 5.8 (2.0-8.3) x10*3/uL Absolute Nucleated RBC 0.000 (0.0-0.012) X10*3/uL Nucleated RBC % (auto) 0.0 (0.0-0.2) /100WBC Smear Tech's Comments VERIFIED Sodium 136 (135-145) mmol/L Potassium 5.5 H (3.3-5.1) mmol/L Chloride 103 (96-108) mmol/L Carbon Dioxide 20 L (22-29) mmol/L Anion Gap 19 (12-20) BUN 55 H (9-16) mg/dL Creatinine 2.56 H (0.5-1.4) mg/dL Estim Creat Clear Calc 23.8 Estimated GFR 18 POC Glucose 141 H (60-115) mg/dL Random Glucose 150 H (60-115) mg/dL Calcium 9.6 (8.4-10.2) mg/dL Total Bilirubin 0.4 (0.0-1.0) mg/dL AST 18 (5-31) U/L ALT 13 (0-31) U/L Alkaline Phosphatase 75 (39-117) U/L Total Protein 7.2 (6.5-8.0) g/dL Albumin 4.2 (3.5-5.0) g/dL 04/06/22 Range/Units 03:32 WBC (4.8-10.8) X10*3/uL RBC (4.20-5.50) X10*6/uL Hgb (12.0-16.0) g/dl Hct (37.0-47.0) % MCV (80.0-98.0) fL MCH (27.0-33.0) pg MCHC (31.0-35.0) g/dl RDW (11.0-16.0) % Plt Count (160-400) X10*3/uL MPV (9.4-12.3) fL Immature Gran % (Auto) (0.0-0.4) % Neut % (Auto) (45-73) % Lymph % (Auto) (20-40) % Menard % (Auto) (2-11) % Eos % (Auto) (0-4) % Baso % (Auto) (0-2) % Lymph # (Auto) (1.2-4.9) X10*3/uL Menard # (Auto) (0.1-1.2) X10*3/uL Eos # (Auto) (0.0-0.4) X10*3/uL Baso # (Auto) (0.0-0.2) X10*3/uL Abs Immat Gran (auto) (0.00-0.03) X10*3/uL Absolute Neuts (auto) (2.0-8.3) x10*3/uL Absolute Nucleated RBC (0.0-0.012) X10*3/uL Nucleated RBC % (auto) (0.0-0.2) /100WBC Smear Tech's Comments Sodium 139 (135-145) mmol/L Potassium 4.6 (3.3-5.1) mmol/L Chloride 106 (96-108) mmol/L Carbon Dioxide 24 (22-29) mmol/L Anion Gap 14 (12-20) BUN 57 H (9-16) mg/dL Creatinine 2.28 H (0.5-1.4) mg/dL Estim Creat Clear Calc 26.7 Estimated GFR 21 POC Glucose (60-115) mg/dL Random Glucose 139 H (60-115) mg/dL Calcium 8.7 D (8.4-10.2) mg/dL Total Bilirubin (0.0-1.0) mg/dL AST (5-31) U/L ALT (0-31) U/L Alkaline Phosphatase (39-117) U/L Total Protein (6.5-8.0) g/dL Albumin (3.5-5.0) g/dL ECG Data Attestation: I personally reviewed and interpreted this ECG as follows: ECG interpretation date: 04/06/22 ECG interpretation time: 00:31 Interpretation: Rate: 65 Rhythm: NSR Ider: normal Normal P waves. Normal GEENA. Normal QRS complex. ST T wave : normal no ASIA qTC: normal prior studies: no acute ischemia The study has been interpreted contemporaneously by me. . Discharge Plan Discharge Clinical Impression: Acute hyperkalemia, Acute kidney injury superimposed on chronic kidney disease Patient Disposition: Home, Self-Care Instructions: Chronic Kidney Disease (ED), Hyperkalemia (ED) Additional Instructions: return to ED for any worsening symptoms or concerns Cr 2.2 please follow up with your doctor and recheck kidney function this week no later than Thursday Prescriptions: No Action ferrous sulfate 325 mg (65 mg iron) tablet 325 mg PO DAILY Qty: 90 5RF (DME) V-GO 40 Device See Rx Instructions .Route Qty: 30 11RF Rx Instructions: As directed Januvia 50 mg tablet 50 mg PO DAILY 90 Days Qty: 90 1RF pravastatin 40 mg tablet 40 mg PO BEDTIME Qty: 90 3RF bumetanide 1 mg tablet 1 mg PO DAILY Qty: 90 0RF gabapentin [Neurontin] 300 mg capsule 300 mg PO BEDTIME Qty: 90 0RF leflunomide 10 mg tablet 10 mg PO DAILY Qty: 90 0RF atenolol 50 mg tablet 50 mg PO DAILY Qty: 90 1RF lisinopril 40 mg tablet 40 mg PO DAILY Qty: 90 3RF amlodipine 10 mg tablet 10 mg PO DAILY Qty: 90 3RF albuterol sulfate [ProAir HFA] 90 mcg/actuation HFA aerosol inhaler 2 puff inhalation Q6H PRN (Reason: shortness of breath or wheezing) Qty: 8.5 2RF insulin lispro [Humalog U-100 Insulin] 100 unit/mL solution See Rx Instructions subcut DAILY Qty: 70 2RF Rx Instructions: up to 70 units daily via patch pump subcutaneously daily; Lokelma 10 gram powder in packet 10 g PO DAILY (DME) OneTouch Ultra Test Strip See Rx Instructions .ROUTE QID Qty: 300 3RF Rx Instructions: 3x daily Toujeo Max U-300 SoloStar 300 unit/mL (3 mL) insulin pen 40 unit subcut BEDTIME 90 Days Qty: 12 1RF albuterol sulfate 90 mcg/actuation HFA aerosol inhaler 2 puff inhalation Q4-6H PRN (Reason: Wheezing) acetaminophen [Tylenol Extra Strength] 500 mg tablet 500 mg PO Q6H PRN (Reason: Pain) aspirin [Adult Low Dose Aspirin] 81 mg tablet,delayed release (DR/EC) 81 mg PO DAILY coenzyme K90-salosth E 100-100 mg-unit capsule 1 cap PO DAILY lansoprazole [Prevacid] 15 mg capsule,delayed release(DR/EC) 15 mg PO DAILY calcium carbonate [Calcium 600] 600 mg calcium (1,500 mg) tablet 600 mg PO BID (DME) pen needle, diabetic 32 gauge x 5/32 needle See Rx Instructions subcut DAILY Qty: 100 2RF Rx Instructions: Once a day prednisone 1 mg tablet 1 mg PO DAILY Qty: 30 0RF Humira 40 mg/0.8 mL syringe kit See Rx Instructions subcut .COMPLEX Qty: 6 0RF Rx Instructions: inject one - 40 mg/0.8 mL syringe every 2 weeks subcut
[2022-04-06 00:58] LABS: Glucose, Whole Blood 141 mg/dL (60-115)
[2022-04-06 01:43] VITALS: BP 112/34; PULSE 59; RESP 16
[2022-04-06] MEDS: Insulin Glargine,Hum.rec.anlog 100 UNIT/ML 10 ML VIAL 20 UNIT SUBCUT (01:46)
[2022-04-06] MEDS: 0.9 % Sodium Chloride 1,000 ML 999 ML IV (01:46)
[2022-04-06] MEDS: Sodium Zirconium Cyclosilicate 10 GM POWD.PACK PO (01:48)
[2022-04-06] MEDS: 0.9 % Sodium Chloride 500 ML IV (01:48)
[2022-04-06 04:00] VITALS: BP 125/32; PULSE 59; RESP 16
[2022-04-06 04:00] LABS: Anion Gap 14 (12-20); Blood Urea Nitrogen 57 mg/dL (9-16); Calcium 8.7 mg/dL (8.4-10.2); Carbon Dioxide 24 mmol/L (22-29); Chloride 106 mmol/L (96-108); Creatinine Clr Calc Pharmacy 26.7; Estimated Glomerular Filt Rate 21; Glucose Random 139 mg/dL (60-115); Potassium 4.6 mmol/L (3.3-5.1); Sodium 139 mmol/L (135-145)
== END 2022-04-06 04:37 | disposition home or self-care (01) ==
PROVIDERS: Emergency Provider Emergency Medicine; PCP Internal Medicine
DX: E23.2 Diabetes insipidus (principal); E11.22 Type 2 diabetes mellitus with diabetic chronic kidney disease; N18.9 Chronic kidney disease, unspecified; R06.02 Shortness of breath; R79.89 Other specified abnormal findings of blood chemistry; Z79.4 Long term (current) use of insulin; Z79.899 Other long term (current) drug therapy; Z87.891 Personal history of nicotine dependence
CPT/HCPCS: 36415; 80048; 80053; 82947; 85025; 93005; 96360; 99283; 99284

== ENCOUNTER 2022-05-19 10:42 | Outpatient (REF) | payer MEDICARE, SELFPAY ==
--- NOTE | ~2022-05-19 | MM_ITS ---
EXAMINATION: MM SCREENING DIGITAL BREAST TOMOSYNTHESIS, BILATERAL CLINICAL INFORMATION: Screening. Asymptomatic. The lifetime risk of breast cancer based on the Tyrer-Cuzick Model is 7%. COMPARISON: Mammography: 05/16/2021, 06/10/2018, 05/18/2017 TECHNIQUE: Digital breast tomosynthesis is performed in both the craniocaudal and mediolateral oblique views along with computer-aided detection (CAD). Synthesized 2D images are generated from the tomosynthesis. Additional bilateral CC and right MLO views are provided. FINDINGS: There are scattered areas of fibroglandular density (ACR BI-RADS breast composition Category b). Parenchymal pattern is similar to prior studies. There is no developing density or architectural abnormality. There is fine fibronodular parenchymal pattern similar to prior studies. Again, there are diffuse bilateral scattered fine and coarse predominantly round calcifications and some ductal secretory calcifications. The axilla and skin contours are unremarkable. No significant changes. MM/MM tomosynthesis screening BI IMPRESSION: No mammographic evidence of malignancy. ASSESSMENT: BI-RADS 2: Benign RECOMMENDATION: Routine annual mammography screening. This patient's information was entered into a reminder system with a target due date for their next mammogram.
== END 2022-05-19 10:43 | disposition home or self-care (01) ==
LOC: HO.MAMMO 10:42
PROVIDERS: PCP Internal Medicine; Visit Provider Internal Medicine
DX: Z12.31 Encounter for screening mammogram for malignant neoplasm of breast (principal)
CPT/HCPCS: 77063; 77067

== ENCOUNTER 2022-07-01 09:44 | Outpatient (REF) | payer MEDICARE, SELFPAY ==
[2022-07-01 11:02] LABS: MANUAL DIFF FLAG NO
[2022-07-01 11:15] LABS: Basophils Absolute Auto 0.1 X10*3/uL (0.0-0.2); Basophils Percent Auto 1.1 % (0-2); Eosinophils Absolute Auto 0.5 X10*3/uL (0.0-0.4); Eosinophils Percent Auto 5.1 % (0-4); Hematocrit 42.8 % (37.0-47.0); Hemoglobin 13.7 g/dl (12.0-16.0); Imm Gran Abs Auto 0.06 X10*3/uL (0.00-0.03); Imm Gran Pct Auto 0.7 % (0.0-0.4); Lymphocytes Absolute Auto 1.6 X10*3/uL (1.2-4.9); Lymphocytes Percent Auto 18.2 % (20-40); Mean Corpuscular Volume 90.7 fL (80.0-98.0); Mean Platelet Volume 11.4 fL (9.4-12.3); Monocytes Absolute Auto 1.2 X10*3/uL (0.1-1.2); Monocytes Percent Auto 13.5 % (2-11); Neutrophils Absolute Auto 5.5 x10*3/uL (2.0-8.3); Neutrophils Percent Auto 61.4 % (45-73); Platelet Count 234 X10*3/uL (160-400); Red Blood Count 4.72 X10*6/uL (4.20-5.50); Red Cell Distribution Width 14.1 % (11.0-16.0)
[2022-07-01 11:41] LABS: Alanine Aminotransferase 16 U/L (0-31); Aspartate Amino Transferase 16 U/L (5-31); C Reactive Protein 0.92 mg/dL (< or = 0.50); Estimated Glomerular Filt Rate 23
[2022-07-01 12:02] LABS: Erythrocyte Sedimentation Rate 34 MM/HR (0-20)
== END 2022-07-01 09:45 | disposition home or self-care (01) ==
LOC: HO.10HDL 09:44
PROVIDERS: Visit Provider Nurse Practitioner Family
DX: M05.9 Rheumatoid arthritis with rheumatoid factor, unspecified (principal); D80.1 Nonfamilial hypogammaglobulinemia; N18.30 Chronic kidney disease, stage 3 unspecified; Z79.899 Other long term (current) drug therapy
CPT/HCPCS: 36415; 82565; 84450; 84460; 85025; 85652; 86140; 99212

== ENCOUNTER 2022-07-10 00:26 | Inpatient (IN) | payer MEDICARE, SELFPAY ==
[2022-07-10] VITALS (10 sets, daily range): BP systolic 115–151; BP diastolic 34–67; PULSE 58–74; RESP 15–22; TEMP 36–37.1; O2SAT 87–97; BMI 43.1
--- NOTE | 2022-07-10 | ECG_ITS ---
Test Reason : SOB COVID Blood Pressure : / mmHG Vent. Rate : 061 BPM Atrial Rate : 061 BPM P-R Int : 176 ms QRS Dur : 074 ms QT Int : 436 ms P-R-T Axes : 071 012 031 degrees QTc Int : 438 ms Normal sinus rhythm Normal ECG When compared with ECG of 05-APR-2022 19:34, No significant change was found Referred By: Hermes Schultz Electronically Signed By:IRA BOYER
--- NOTE | ~2022-07-10 | XR_ITS ---
EXAMINATION: XR CHEST CLINICAL INFORMATION: COVID COMPARISON: 12/05/2020 TECHNIQUE: Frontal view of the chest was obtained. FINDINGS: Normal symmetric lung volumes. No parenchymal consolidation. No pleural effusion. No pneumothorax. Cardiomediastinal silhouette and pulmonary vascularity are within normal limits. Aorta is atherosclerotic. No acute osseous abnormalities. XR/XR chest 1V IMPRESSION: No acute findings
[2022-07-10 02:35] LABS: MANUAL DIFF FLAG NO
[2022-07-10 02:36] LABS: Basophils Absolute Auto 0.1 X10*3/uL (0.0-0.2); Basophils Percent Auto 0.7 % (0-2); Eosinophils Absolute Auto 0.3 X10*3/uL (0.0-0.4); Eosinophils Percent Auto 2.3 % (0-4); Hematocrit 41.7 % (37.0-47.0); Hemoglobin 13.6 g/dl (12.0-16.0); Imm Gran Abs Auto 0.07 X10*3/uL (0.00-0.03); Imm Gran Pct Auto 0.6 % (0.0-0.4); Lymphocytes Absolute Auto 1.2 X10*3/uL (1.2-4.9); Lymphocytes Percent Auto 10.9 % (20-40); Mean Corpuscular HGB Conc 32.6 g/dl (31.0-35.0); Mean Corpuscular Hemoglobin 28.6 pg (27.0-33.0); Mean Corpuscular Volume 87.6 fL (80.0-98.0); Mean Platelet Volume 10.7 fL (9.4-12.3); Monocytes Absolute Auto 1.4 X10*3/uL (0.1-1.2); Monocytes Percent Auto 12.5 % (2-11); Platelet Count 211 X10*3/uL (160-400); Red Blood Count 4.76 X10*6/uL (4.20-5.50); Red Cell Distribution Width 14.3 % (11.0-16.0)
[2022-07-10 03:00] LABS: Alanine Aminotransferase 17 U/L (0-31); Albumin Level 4.2 g/dL (3.5-5.0); Alkaline Phosphatase 68 U/L (39-117); Anion Gap 18 (12-20); Aspartate Amino Transferase 20 U/L (5-31); Bilirubin Total 0.4 mg/dL (0.0-1.0); Blood Urea Nitrogen 30 mg/dL (9-16); Calcium 9.8 mg/dL (8.4-10.2); Carbon Dioxide 24 mmol/L (22-29); Chloride 101 mmol/L (96-108); Creatinine Clr Calc Pharmacy 29.8; Estimated Glomerular Filt Rate 25; Glucose Random 172 mg/dL (60-115); Potassium 5.9 mmol/L (3.3-5.1); Sodium 137 mmol/L (135-145); Total Protein 7.3 g/dL (6.5-8.0)
--- NOTE | 2022-07-10 03:37 | ED.SOB ---
HPI - SOB/Dyspnea General Chief Complaint: Weakness Stated Complaint: hard to walk, headache, fatigue Time Seen by Provider: 07/10/22 03:22 Source: patient Limitations: no limitations History of Present Illness HPI Narrative: 71-year-old female who presents emergency department for evaluation body aches, weakness, shortness of breath, cough and positive home COVID test. Patient states that her symptoms started on 07/08/2022 ( 2 days prior). She states when she woke up in the morning she had body aches over her entire body. She had a cough which was nonproductive but persistent. She felt short of breath at rest and had dyspnea on exertion. She states that she was very weak and was having difficulty walking. Her symptoms got worse, therefore she came to the emergency department for evaluation. The patient had 4 Pfizer vaccinations with her last vaccination being on 02/20/2022. The patient does not have any underlying lung problems but she states she does get bronchitis every year. She has rheumatoid arthritis and takes Humira every 2 weeks. She also has diabetes and obesity. MD elicited complaint: shortness of breath Onset (ago): day(s) (2) Context: other ( COVID-19 positive home test ) Severity: moderate Exacerbating factors: exertion and coughing Relieving factors: nothing Associated symptoms: cough and other ( weakness) Treatment prior to arrival: none Related Data Home Medications Medication Instructions Recorded Confirmed aspirin 81 mg tablet,delayed 81 mg PO DAILY 08/10/20 07/01/22 release (Adult Low Dose Aspirin) calcium carbonate 600 mg calcium 600 mg PO BID 08/10/20 07/01/22 (1,500 mg) tablet (Calcium) patiromer calcium sorbitex 8.4 8.4 g PO DAILY 07/01/22 07/10/22 gram oral powder packet (Veltassa) prednisone 1 mg tablet 1 mg PO DAILY 07/10/22 07/10/22 Previous Rx's Medication Instructions Recorded pen needle, diabetic 32 gauge x #100 ea 03/01/21 blood sugar diagnostic (OneTouch #300 ea 10/22/21 Ultra Test strips) insulin glargine U-300 conc 300 40 unit (0.1333 mL) subcut BEDTIME 10/22/21 unit/mL (3 mL) subcutaneous pen 90 days #12 mL (Toujeo Max U-300 SoloStar) pravastatin 40 mg tablet 40 mg PO BEDTIME #90 tabs 11/04/21 atenolol 50 mg tablet 50 mg PO DAILY #90 tabs 02/28/22 lisinopril 40 mg tablet 40 mg PO DAILY #90 tabs 03/11/22 amlodipine 10 mg tablet 10 mg PO DAILY #90 tabs 03/17/22 albuterol sulfate 90 mcg/actuation 2 puff inhalation Q6H PRN 03/25/22 aerosol inhaler (ProAir HFA) shortness of breath or wheezing #8.5 grams adalimumab 40 mg/0.8 mL See Rx Instructions subcut 03/28/22 subcutaneous syringe kit (Humira) .COMPLEX #6 ea insulin lispro 100 unit/mL See Rx Instructions subcut DAILY 04/02/22 subcutaneous solution (Humalog #70 mL U-100 Insulin) sitagliptin 50 mg tablet (Januvia) 50 mg PO DAILY #90 tabs 04/11/22 gabapentin 300 mg capsule 300 mg PO BEDTIME #90 caps 06/18/22 (Neurontin) leflunomide 10 mg tablet 10 mg PO DAILY #30 tabs 06/20/22 bumetanide 1 mg tablet 1 mg PO DAILY #90 tabs 07/02/22 sub-q insulin device, 40 unit #30 ea 07/02/22 (V-GO 40 device) Allergies Allergy/AdvReac Type Severity Reaction Status Date / Time codeine [Codeine] Allergy Severe DIFFICULTY Verified 07/01/22 09:09 BREATHING Penicillins AdvReac Intermediate stomach Verified 07/01/22 09:09 upset Review of Systems Review of Systems: Yes all other systems are reviewed and are negative [facility] Past Medical History Medical History Bronchitis CKD (chronic kidney disease) stage 3, GFR 30-59 ml/min Diabetic retinopathy associated with type 2 diabetes mellitus Dyslipidemia Essential hypertension GERD (gastroesophageal reflux disease) 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 mellitus) Left low back pain 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, 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 Low back pain MGUS (monoclonal gammopathy of unknown significance) Obesity due to excess calories Postlaminectomy syndrome Spinal stenosis of lumbar region with radiculopathy Spondylosis of lumbar spine Swelling of left lower extremity Type 2 diabetes mellitus with diabetic polyneuropathy Surgical History History of back surgery Hx laparoscopic cholecystectomy Hx of cataract surgery Hx of colonoscopy Hx of tonsillectomy Family History Family History Mother Diabetes HTN (hypertension) CVD (cardiovascular disease) Father Hodgkin disease Social History Social History Housing: Condominium Alcohol intake: never Patient Tobacco Use Status: Former Tobacco user Tobacco use type: Cigarette Cigarettes Per Day: 50 Years Smoked: 20 e-Cigarette/Vaping Use: Never Used Advance Directives: Yes Advance Directives on File: Yes Advance Directives Date on File: 02/08/22 Current occupational status: retired Cognitive needs: No Hearing needs: No Vision needs: No Physical Exam Vital Signs: Vital Signs: Last Vital Signs Temp 96.8 F 07/10/22 07:43 Pulse 65 07/10/22 07:43 Resp 22 H 07/10/22 07:43 BP 135/43 L 07/10/22 07:43 Pulse Ox 96 07/10/22 07:43 O2 Del Method 07/10/22 07:43 O2 Flow Rate 2 07/10/22 03:58 BMI result Body Mass Index 43.1 Const: General: cooperative and no acute distress Orientation/consciousness: oriented to person and oriented to place Limitations: no limitations HEENT: Head: Yes normal to inspection, Yes normocephalic and Yes atraumatic Ears: external ears normal General nose exam: Normal external nose present Face and sinus: Yes normal facial exam Mouth: Normal oral and palatal mucosa present Throat: Yes posterior oropharynx normal Eyes: General: appearance normal, both eyes and all related structures Pupils: Equal, round and reactive pupils present Neck: Neck: Yes normal visual inspection, Yes no lymphadenopathy, Yes trachea midline and Yes supple Chest: Chest palpation & inspection: normal inspection of the chest and normal palpation of entire chest wall Resp: Effort & Inspection: normal respiratory effort and able to speak in complete sentences Auscultation: wheezes Cardio: Rate: regular rate Rhythm: regular rhythm Heart sounds: S1 normal heart sound present, S2 normal heart sound present and no murmurs GI: Inspection: Yes normal to inspection Palpation (GI): Soft to palpation, nontender and no guarding Auscultation: normal bowel sounds : General: Yes no CVA tenderness Back/Spine/Pelvis: Back: no CVA tenderness Skin: General skin exam: no rashes or lesions noted Neuro: General: oriented to person and oriented to place Cranial nerves: Yes CN's II-XII intact bilaterally and Yes Equal, round and reactive pupils present Cognition (Neuro): normal cognition Motor exam (neuro): 5/5 motor strength present throughout Extrem: General: Yes normal to inspection Psych: Appearance: grossly normal Speech and movement: Normal speech and movement present Affect: normal affect Attitude: cooperative Thought process: Normal thought process present Thought content: Normal thought content present Course Course Course Narrative: 71-year-old female who presents emergency department for evaluation of 2 days of viral-like illness, tested positive for COVID-19 at home on 07/08/2022. Patient complains of cough, body aches, shortness of breath, dyspnea on exertion and weakness. Vital signs revealed a low O2 saturation of 90% on room air, lung exam revealed diffuse wheezing. Laboratory evaluation and chest x-ray were ordered. the patient will be ambulated with the Power O2 saturation monitor to see if she drops below 88% on room air. 0346: CBC was normal. CMP is consistent with her chronic kidney disease with a BUN of 30 and creatinine of 1.99 an elevated potassium of 5.9. Glucose elevated 172. 0400: The patient's O2 saturation dropped to 87% with ambulation. I ordered oxygen via nasal cannula and dexamethasone 6 mg IV. Chest x-ray one view was interpreted as no acute findings by the radiologist however on my review of this x-ray I do believe her some increased interstitial markings consistent with COVID pneumonia. I did discuss admission over tiger text with the covering hospitalist, Dr. Segura. MDM - SOB/Dyspnea Lab Data Attestation: I reviewed the patient's lab results. Result diagrams: 07/10/22 02:30 07/10/22 02:30 Labs: Lab Results 07/10/22 07/10/22 07/10/22 Range/Units 02:30 02:30 03:53 WBC 11.0 H (4.8-10.8) X10*3/uL RBC 4.76 (4.20-5.50) X10*6/uL Hgb 13.6 (12.0-16.0) g/dl Hct 41.7 (37.0-47.0) % MCV 87.6 (80.0-98.0) fL MCH 28.6 (27.0-33.0) pg MCHC 32.6 (31.0-35.0) g/dl RDW 14.3 (11.0-16.0) % Plt Count 211 (160-400) X10*3/uL MPV 10.7 (9.4-12.3) fL Immature Gran % (Auto) 0.6 H (0.0-0.4) % Neut % (Auto) 73.0 (45-73) % Lymph % (Auto) 10.9 L (20-40) % [place] % (Auto) 12.5 H (2-11) % Eos % (Auto) 2.3 (0-4) % Baso % (Auto) 0.7 (0-2) % Lymph # (Auto) 1.2 (1.2-4.9) X10*3/uL [place] # (Auto) 1.4 H (0.1-1.2) X10*3/uL Eos # (Auto) 0.3 (0.0-0.4) X10*3/uL Baso # (Auto) 0.1 (0.0-0.2) X10*3/uL Abs Immat Gran (auto) 0.07 H (0.00-0.03) X10*3/uL Absolute Neuts (auto) 8.0 (2.0-8.3) x10*3/uL Absolute Nucleated RBC 0.000 (0.0-0.012) X10*3/uL Nucleated RBC % (auto) 0.0 (0.0-0.2) /100WBC Sodium 137 (135-145) mmol/L Potassium 5.9 H D (3.3-5.1) mmol/L Chloride 101 (96-108) mmol/L Carbon Dioxide 24 (22-29) mmol/L Anion Gap 18 (12-20) BUN 30 H (9-16) mg/dL Creatinine 1.99 H (0.5-1.4) mg/dL Estim Creat Clear Calc 29.8 Estimated GFR 25 Random Glucose 172 H (60-115) mg/dL Calcium 9.8 D (8.4-10.2) mg/dL Total Bilirubin 0.4 (0.0-1.0) mg/dL AST 20 (5-31) U/L ALT 17 (0-31) U/L Alkaline Phosphatase 68 (39-117) U/L Total Protein 7.3 (6.5-8.0) g/dL Albumin 4.2 (3.5-5.0) g/dL COVID-19 (RADHA) Negative (Negative) COVID-19 Clin Com See Note Influenza Type A (RADHIKA) (Negative) Influenza Type B (RADHIKA) (Negative) Influenza A & B Note 07/10/22 Range/Units 03:53 WBC (4.8-10.8) X10*3/uL RBC (4.20-5.50) X10*6/uL Hgb (12.0-16.0) g/dl Hct (37.0-47.0) % MCV (80.0-98.0) fL MCH (27.0-33.0) pg MCHC (31.0-35.0) g/dl RDW (11.0-16.0) % Plt Count (160-400) X10*3/uL MPV (9.4-12.3) fL Immature Gran % (Auto) (0.0-0.4) % Neut % (Auto) (45-73) % Lymph % (Auto) (20-40) % [place] % (Auto) (2-11) % Eos % (Auto) (0-4) % Baso % (Auto) (0-2) % Lymph # (Auto) (1.2-4.9) X10*3/uL [place] # (Auto) (0.1-1.2) X10*3/uL Eos # (Auto) (0.0-0.4) X10*3/uL Baso # (Auto) (0.0-0.2) X10*3/uL Abs Immat Gran (auto) (0.00-0.03) X10*3/uL Absolute Neuts (auto) (2.0-8.3) x10*3/uL Absolute Nucleated RBC (0.0-0.012) X10*3/uL Nucleated RBC % (auto) (0.0-0.2) /100WBC Sodium (135-145) mmol/L Potassium (3.3-5.1) mmol/L Chloride (96-108) mmol/L Carbon Dioxide (22-29) mmol/L Anion Gap (12-20) BUN (9-16) mg/dL Creatinine (0.5-1.4) mg/dL Estim Creat Clear Calc Estimated GFR Random Glucose (60-115) mg/dL Calcium (8.4-10.2) mg/dL Total Bilirubin (0.0-1.0) mg/dL AST (5-31) U/L ALT (0-31) U/L Alkaline Phosphatase (39-117) U/L Total Protein (6.5-8.0) g/dL Albumin (3.5-5.0) g/dL COVID-19 (RADHA) (Negative) COVID-19 Clin Com Influenza Type A (RADHIKA) Negative (Negative) Influenza Type B (RADHIKA) Negative (Negative) Influenza A & B Note See Note Critical Care Time Critical Care Time Total Critical Care Time: 35 Attestation: Critical Care: The patient was critically ill with a high probability of imminent or life threatening deterioration. I spent greater than 30 minutes of discontinuous time evaluating the patient,delivering critical care at the bedside, discussing and evaluating pertinent data with consultants. Critical care time does not include time spent performing separately billable procedures or teaching. Total time spent performing critical care was 35 minutes. Discharge Plan Discharge Clinical Impression: Pneumonia due to COVID-19 virus, Hypoxia Patient Disposition: Admitted As Inpatient
[2022-07-10] MEDS: dexAMETHasone sod phosphate 4 MG/ML VIAL 6 MG IVPUSH (04:04)
[2022-07-10 04:21] LABS: COVID-19 Test Negative (Negative)
[2022-07-10 04:22] LABS: IDNOW Serial# 55D5AD1C; Influenza A Negative (Negative); Influenza B2 Negative (Negative)
[2022-07-10] MEDS: Sodium Zirconium Cyclosilicate 10 GM POWD.PACK PO (09:13)
--- NOTE | 2022-07-10 09:13 | PM.IMHP ---
History of Present Illness Date of Service: 07/10/22 Chief Complaint: fatigue, covid positive at home x 2 days This is a 71 year old female with a PMH of CKD stage 4, Seropositive RA on Humira / Leflunomide and recently tapered off prednisone, HTN, DM who presents to the ED with a 2 day history of worsening cough, shortness of breath and fatigue. The patient reports that she woke up on 07/08/22 (2 days prior to admission) with severe fatigue and cough. She tested herself at home and was positive for COVID. She reports no known sick contacts. She denies any objective fevers or chills. She reports that the last 24 hours she has continued to feel worse and was starting to become short of breath with minimal exertion. Her cough was prohibitive to her sleeping and hence she decided to seek medical care. In the ED she was found to be hypoxic down to 87% on RA with associated increased work of breathing. She was placed on 2L NC with improvement in her O2 sats as well has work of breathing. COVID testing was completed as part of the admission process, but that was negative. She has been given 1 dose of decadron and will now be admitted for further treatment. 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 Low back pain MGUS (monoclonal gammopathy of unknown significance) Obesity due to excess calories Postlaminectomy syndrome Spinal stenosis of lumbar region with radiculopathy Spondylosis of lumbar spine Swelling of left lower extremity Type 2 diabetes mellitus with diabetic polyneuropathy Family History Mother Diabetes HTN (hypertension) CVD (cardiovascular disease) Father Hodgkin disease Surgical History History of back surgery Hx laparoscopic cholecystectomy Hx of cataract surgery Hx of colonoscopy Hx of tonsillectomy [facility] Alcohol intake: never Patient Tobacco Use Status: Former Tobacco user Tobacco use type: Cigarette Cigarettes Per Day: 50 Years Smoked: 20 e-Cigarette/Vaping Use: Never Used Advance Directives: Yes Advance Directives on File: Yes Advance Directives Date on File: 02/08/22 Current occupational status: retired Cognitive needs: No Hearing needs: No Vision needs: No Meds Allergies Allergy/AdvReac Type Severity Reaction Status Date / Time codeine [Codeine] Allergy Severe DIFFICULTY Verified 07/01/22 09:09 BREATHING Penicillins AdvReac Intermediate stomach Verified 07/01/22 09:09 upset Home Medications Medication Instructions Recorded Confirmed Last Taken Type aspirin 81 mg tablet,delayed 81 mg PO DAILY 08/10/20 07/10/22 07/09/22 History release (Adult Low Dose Aspirin) calcium carbonate 600 mg calcium 600 mg PO BID 08/10/20 07/10/22 07/09/22 History (1,500 mg) tablet (Calcium) patiromer calcium sorbitex 8.4 8.4 g PO DAILY 07/01/22 07/10/22 07/09/22 History gram oral powder packet (Veltassa) Physical Exam Vital Signs and Narrative: Vital Signs: Last Vital Signs Temp 96.8 F 07/10/22 07:43 Pulse 65 07/10/22 07:43 Resp 22 H 07/10/22 07:43 BP 135/43 L 07/10/22 07:43 Pulse Ox 96 07/10/22 07:43 O2 Del Method 07/10/22 07:43 O2 Flow Rate 2 07/10/22 03:58 BMI result Body Mass Index 43.1 Const: Other: Constitutional - Awake and Alert, No apparent distress Eyes - PERRLA, EOMI Cardiovascular - S1S2, RRR, No edema Respiratory - comfortable on 2L NC; very poor entry b/l Gastrointestinal - NT / ND; +BS; No rebound or guarding - No CVA tenderness Extremities - no calf tenderness bilaterally, no swelling Musculoskeletal - Normal inspection, normal ROM Skin - Warm/Dry Neurological - Alert & oriented x3, No focal deficit Psychological - Appropriate affect Results Labs CBC and Chem 7: 07/10/22 02:30 07/10/22 02:30 Labs: Laboratory Results - last 24 hr 07/10/22 07/10/22 07/10/22 02:30 02:30 03:53 MCV 87.6 MCH 28.6 MCHC 32.6 RDW 14.3 Plt Count 211 MPV 10.7 Immature Gran % (Auto) 0.6 H Neut % (Auto) 73.0 Lymph % (Auto) 10.9 L [place] % (Auto) 12.5 H Eos % (Auto) 2.3 Baso % (Auto) 0.7 Lymph # (Auto) 1.2 [place] # (Auto) 1.4 H Eos # (Auto) 0.3 Baso # (Auto) 0.1 Abs Immat Gran (auto) 0.07 H Absolute Neuts (auto) 8.0 Absolute Nucleated RBC 0.000 Nucleated RBC % (auto) 0.0 Anion Gap 18 Estim Creat Clear Calc 29.8 Estimated GFR 25 Random Glucose 172 H Calcium 9.8 D Total Bilirubin 0.4 AST 20 ALT 17 Alkaline Phosphatase 68 Total Protein 7.3 Albumin 4.2 COVID-19 (RADHA) Negative COVID-19 Clin Com See Note Influenza Type A (RADHIKA) Influenza Type B (RADHIKA) Influenza A & B Note 07/10/22 03:53 MCV MCH MCHC RDW Plt Count MPV Immature Gran % (Auto) Neut % (Auto) Lymph % (Auto) [place] % (Auto) Eos % (Auto) Baso % (Auto) Lymph # (Auto) [place] # (Auto) Eos # (Auto) Baso # (Auto) Abs Immat Gran (auto) Absolute Neuts (auto) Absolute Nucleated RBC Nucleated RBC % (auto) Anion Gap Estim Creat Clear Calc Estimated GFR Random Glucose Calcium Total Bilirubin AST ALT Alkaline Phosphatase Total Protein Albumin COVID-19 (RADHA) COVID-19 Clin Com Influenza Type A (RADHIKA) Negative Influenza Type B (RADHIKA) Negative Influenza A & B Note See Note Imaging Radiologist's Impressions: Impressions Chest X-Ray 07/10/22 03:42 IMPRESSION: No acute findings Assessment and Plan (1) Hypoxia: Status: Acute (2) Pneumonia due to COVID-19 virus: Status: Acute Plan This is a 71 yo F who is immunocompromised due to her RA treatment + IDDM, who tested positive for COVID on 07/08/22 and now presents with worsening fatigue and respiratory symptoms. She is found to be hypoxic and is requiring O2. COVID testing is negative in the ED. 1. Acute respiratory failure with hypoxia secondary to COVID19 Given positive test home -- will presume COVID as the culprit Given IV decadron in the ED, will continue the same x 10 days; will ask for ID input re: other COVID therapies such as remdesivir maintain isoloation trend inflammatory biomakers 2. Hyperkalemia lokelma 10 now check ekg monitor tech on tele hold peg inhibitor 3. CKD stage 3 SCr at baseline or better monitor and renally dose meds 4. DM basal + bolus ADA diet 5. HTN continue baseline antihypertensive except PEG once med rec completed 6. RA hold immunosuppresive treatments fo rnow Full Code DVT pptx, Lovenox Despite the patient's hypoxia and positive covid test home (with her baseline immunocompromised state), I anticipate she will require an inpatient hospitalization which is likely to span 2 midnights for treatment, weaning oxygen and expert consultation with infectious disease. This cannot be completed in a less acute setting. Quality Stroke Does the patient have a stroke diagnosis?: No VTE Prior VTE?: No VTE Risk Level:: Medical - moderate - high VTE Device Contraindication: Treatment Not Indicated VTE Drug Contraindication: N/A - Med Ordered
[2022-07-10] MEDS: Enoxaparin Sodium 30 MG/0.3 ML SYRINGE SUBCUT (09:34)
--- NOTE | 2022-07-10 09:47 | PHA.MEDREC ---
Pharmacy Consult ? Medication Reconciliation Pharmacy has completed the medication reconciliation. SPOKE WITH PATIENT. SHE TOOK HER HUMIRA LAST THURSDAY, AND TOOK OFF HER V-GO TODAY IT WAS EMPTY.
[2022-07-10 10:06] LABS: C Reactive Protein 2.77 mg/dL (< or = 0.50); Lactate Dehydrogenase 251 U/L (122-220)
[2022-07-10 10:18] LABS: Ferritin 537 ng/mL (10-250)
[2022-07-10 10:24] LABS: Procalcitonin 0.15 ng/mL
[2022-07-10 10:48] LABS: D Dimer High Sensitivity < 150 NG/ML
[2022-07-10 12:09] LABS: Glucose, Whole Blood 262 mg/dL (60-115)
[2022-07-10] MEDS: Insulin Lispro 100 UNIT/ML 3 ML VIAL SUBCUT ×3 (12:10→20:56)
[2022-07-10 17:41] LABS: Glucose, Whole Blood 307 mg/dL (60-115)
[2022-07-10] MEDS: 0.9 % Sodium Chloride Flush 3 ML SYRINGE IVFLUSH ×2 (17:57→20:58)
--- NOTE | 2022-07-10 18:56 | PC.NURSE ---
RN-RN report called into [facility], EKG being performed by tech, medicated per provider order, pt pending transport.
[2022-07-10 19:49] LABS: Glucose, Whole Blood 377 mg/dL (60-115)
[2022-07-10] MEDS: Gabapentin 300 MG CAPSULE PO (20:56)
[2022-07-11 04:00] VITALS: BP 118/62; PULSE 68; RESP 20; TEMP 37.1; O2SAT 96
[2022-07-11 07:17] LABS: Hematocrit 38.1 % (37.0-47.0); Hemoglobin 12.1 g/dl (12.0-16.0); Mean Corpuscular HGB Conc 31.8 g/dl (31.0-35.0); Mean Corpuscular Hemoglobin 28.5 pg (27.0-33.0); Mean Corpuscular Volume 89.9 fL (80.0-98.0); Mean Platelet Volume 11.3 fL (9.4-12.3); Platelet Count 192 X10*3/uL (160-400); Red Blood Count 4.24 X10*6/uL (4.20-5.50); Red Cell Distribution Width 14.3 % (11.0-16.0); White Blood Count 8.6 X10*3/uL (4.8-10.8)
[2022-07-11 07:36] LABS: Anion Gap 21 (12-20); Blood Urea Nitrogen 44 mg/dL (9-16); Calcium 9.2 mg/dL (8.4-10.2); Carbon Dioxide 22 mmol/L (22-29); Chloride 101 mmol/L (96-108); Creatinine Clr Calc Pharmacy 30.9; Estimated Glomerular Filt Rate 26; Glucose Random 274 mg/dL (60-115); Potassium 5.4 mmol/L (3.3-5.1); Sodium 139 mmol/L (135-145)
[2022-07-11 07:51] VITALS: BP 157/62; PULSE 56; RESP 20; TEMP 36.4; O2SAT 97
[2022-07-11 07:58] LABS: Glucose, Whole Blood 246 mg/dL (60-115)
[2022-07-11] MEDS: Enoxaparin Sodium 30 MG/0.3 ML SYRINGE SUBCUT (08:28)
[2022-07-11] MEDS: Insulin Lispro 100 UNIT/ML 3 ML VIAL SUBCUT ×4 (08:29→21:03)
[2022-07-11] MEDS: 0.9 % Sodium Chloride Flush 3 ML SYRINGE IVFLUSH ×2 (08:29→17:38)
[2022-07-11] MEDS: Aspirin Enteric Coated 81 MG TABLET.DR PO (08:29)
[2022-07-11] MEDS: atenoloL 50 MG TABLET PO (08:30)
[2022-07-11] MEDS: dexAMETHasone sod phosphate 4 MG/ML VIAL 6 MG IVPUSH (08:30)
[2022-07-11 11:30] VITALS: BP 137/55; PULSE 55; RESP 20; TEMP 36.2; O2SAT 97
[2022-07-11 11:36] LABS: Glucose, Whole Blood 288 mg/dL (60-115)
--- NOTE | 2022-07-11 13:25 | MHC.CM.PN ---
Patient is Covid positive; CM spoke with her over the phone at [phone] and addressed IMM with her (original to be given to her and a copy has been placed on the chart). 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 Home self care is the goal and CM has initiated and will follow for dc planning. Patient has received Pfizer/Covid vax x3 and her PCP is Dr. Lyndsay Yan.
--- NOTE | 2022-07-11 15:38 | P.PNIM_ITS ---
Subjective Subjective Date of Service: 07/11/22 Interval History: seen and examined this morning Follow-up for COVID-19 sob with ambulating, intermittent cough no fevers, chills, body aches Review of Systems Review of Systems: Yes all other systems are reviewed and are negative Constitutional Constitutional: Denies chills and Denies fever(s) Cardiovascular Cardiovascular: Denies chest pain, Denies palpitations and Reports dyspnea on exertion Respiratory Respiratory: Reports cough and Reports dyspnea on exertion Gastrointestinal Gastrointestinal: Denies abdominal pain Endocrine Endocrine: Denies palpitations Physical Exam Vital Signs: Vital Signs: Last Vital Signs Temp 97.2 F 07/11/22 11:30 Pulse 55 07/11/22 11:30 Resp 20 07/11/22 11:30 BP 137/55 L 07/11/22 11:30 Pulse Ox 97 07/11/22 11:30 O2 Del Method 07/11/22 11:30 O2 Flow Rate 2 07/11/22 11:30 BMI result Body Mass Index 43.1 Const: General: cooperative, comfortable, alert and awake Nutritional Appearance: obese Orientation/consciousness: patient oriented x3 Resp: Effort & Inspection: normal respiratory effort and able to speak in complete sentences Auscultation: no wheezes and diminished lung sounds Cardio: Rate: regular rate Heart sounds: S1 normal heart sound present and S2 normal heart sound present GI: Inspection: No distended Palpation (GI): Soft to palpation and nontender Neuro: General: patient oriented x3 and CN's II-XI intact bilaterally Extrem: General: Yes no pedal edema Objective Data Active Medications Acetaminophen (Acetaminophen 325 Mg Tablet) 650 mg PO Q6H PRN PRN Reason: Pain, Mild (Pain Scale 1-3) Aspirin (Aspirin Enteric Coated 81 Mg Tablet.) 81 mg PO DAILY REPLACED BY [facility] Last Admin: 07/11/22 08:29 Dose: 81 mg Documented By: ALEJANDRO Atenolol (Atenolol 50 Mg Tablet) 50 mg PO DAILY REPLACED BY [facility]; Protocol Last Admin: 07/11/22 08:30 Dose: 50 mg Documented By: ALEJANDRO Dexamethasone Sodium Phosphate (Dexamethasone Sod Phosphate 4 Mg/Ml Vial) 6 mg IVPUSH DAILY REPLACED BY [facility] Stop: 07/19/22 09:01 Last Admin: 07/11/22 08:30 Dose: 6 mg Documented By: ALEJANDRO Enoxaparin Sodium (Enoxaparin Sodium 30 Mg/0.3 Ml Syringe) 30 mg SUBCUT Q24H REPLACED BY [facility] Last Admin: 07/11/22 08:28 Dose: 30 mg Documented By: ALEJANDRO Gabapentin (Gabapentin 300 Mg Capsule) 300 mg PO BEDTIME REPLACED BY [facility] Last Admin: 07/10/22 20:56 Dose: 300 mg Documented By: ORIANA Insulin Human Lispro (Insulin Lispro 100 Unit/Ml 3 Ml Vial) 0 unit SUBCUT QIDACHS REPLACED BY [facility]; Protocol Last Admin: 07/11/22 11:32 Dose: 1 unit Documented By: ALEJANDRO Ondansetron HCl (Ondansetron Hcl 4 Mg/2 Ml Vial) 4 mg IVPUSH Q8H PRN PRN Reason: Nausea and Vomiting Pharmacy Consult (Consult Rx Perform Med Rec) 1 each MISCELLANE ONCE PRN PRN Reason: Consult order Sodium Chloride (0.9 % Sodium Chloride Flush 3 Ml Syringe) 3 ml IVFLUSH QSHIFT REPLACED BY [facility] Last Admin: 07/11/22 08:29 Dose: 3 ml Documented By: ALEJANDRO Labs CBC & Chem 7: 07/11/22 06:30 07/11/22 06:30 Labs: Laboratory Results - last 24 hr 07/10/22 07/10/22 07/11/22 17:34 19:46 06:30 MCV 89.9 MCH 28.5 MCHC 31.8 RDW 14.3 Plt Count 192 MPV 11.3 Absolute Nucleated RBC 0.000 Nucleated RBC % (auto) 0.0 Anion Gap Estim Creat Clear Calc Estimated GFR POC Glucose 307 H 377 H* Random Glucose Calcium 07/11/22 07/11/22 07/11/22 06:30 07:50 11:29 MCV MCH MCHC RDW Plt Count MPV Absolute Nucleated RBC Nucleated RBC % (auto) Anion Gap 21 H Estim Creat Clear Calc 30.9 Estimated GFR 26 POC Glucose 246 H 288 H Random Glucose 274 H Calcium 9.2 D Assessment and Plan (1) Pneumonia due to COVID-19 virus: Status: Acute Plan This is a 71 yo F who is immunocompromised due to her RA treatment + IDDM, who tested positive for COVID on 07/08/22 and now presents with worsening fatigue and respiratory symptoms. She is found to be hypoxic and is requiring O2. COVID testing is negative in the ED. 1. Acute respiratory failure with hypoxia secondary to COVID19 Given positive test at home - will presume COVID as the culprit Given IV decadron in the ED, will continue the same x 10 days; will ask for ID input re: other COVID therapies such as remdesivir maintain isoloation trend inflammatory biomakers 2. Hyperkalemia Improving with lokelma follow bmp monitor on tele hold peg inhibitor 3. CKD stage 3 SCr at baseline or better monitor and renally dose meds 4. DM basal + bolus ADA diet 5. HTN continue baseline antihypertensive except PEG once med rec completed 6. RA hold immunosuppresive treatments for now Full Code DVT pptx, Lovenox attending - dr. lock patient requires ongoing inpatient hospitalization for hypoxia and positive covid test home (with her baseline immunocompromised state) Quality Stroke Does the patient have a stroke diagnosis?: No VTE Prior VTE?: No VTE Risk Level:: Medical - moderate - high VTE Device Contraindication: Treatment Not Indicated VTE Drug Contraindication: N/A - Med Ordered
[2022-07-11 16:00] VITALS: BP 134/30; PULSE 56; RESP 18; TEMP 37.1; O2SAT 92
[2022-07-11 16:41] LABS: Glucose, Whole Blood 291 mg/dL (60-115)
--- NOTE | 2022-07-11 16:45 | P.CNID_ITS ---
History of Present Illness Data of Consult Service Date: 07/11/22 Requesting physician: Sania Jones Primary Care Provider: Lyndsay Yan MD HPI Reason for consult: hypoxia,covid She presents with shortness of breath and cough. SHe has COVID home test positive on 07/08, now negative. She is on RA and 2 liters oxygen intermittently PMFSH Past Medical History Medical History Bronchitis CKD (chronic kidney disease) stage 3, GFR 30-59 ml/min Diabetic retinopathy associated with type 2 diabetes mellitus Dyslipidemia Essential hypertension GERD (gastroesophageal reflux disease) 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 mellitus) Left low back pain Leg edema, left shelter (current) use of insulin Low back pain MGUS (monoclonal gammopathy of unknown significance) Obesity due to excess calories Postlaminectomy syndrome Spinal stenosis of lumbar region with radiculopathy Spondylosis of lumbar spine Swelling of left lower extremity Type 2 diabetes mellitus with diabetic polyneuropathy Family History Family History Mother Diabetes HTN (hypertension) CVD (cardiovascular disease) Father Hodgkin disease Family history: reviewed and not pertinent Surgical History Surgical History History of back surgery Hx laparoscopic cholecystectomy Hx of cataract surgery Hx of colonoscopy Hx of tonsillectomy Social History Social History Household Members: None Housing: Condominium Alcohol intake: never Patient Tobacco Use Status: Former Tobacco user Tobacco use type: Cigarette Cigarettes Per Day: 50 Years Smoked: 20 e-Cigarette/Vaping Use: Never Used Advance Directives Date on File: 02/08/22 service: No Current occupational status: retired Cognitive needs: No Hearing needs: No Vision needs: No Meds Allergies Allergy/AdvReac Type Severity Reaction Status Date / Time codeine [Codeine] Allergy Severe DIFFICULTY Verified 07/01/22 09:09 BREATHING Penicillins AdvReac Intermediate stomach Verified 07/01/22 09:09 upset Active Medications: Current Medications Acetaminophen (Acetaminophen 325 Mg Tablet) 650 mg PO Q6H PRN PRN Reason: Pain, Mild (Pain Scale 1-3) Aspirin (Aspirin Enteric Coated 81 Mg Tablet.) 81 mg PO DAILY [facility] Last Admin: 07/11/22 08:29 Dose: 81 mg Atenolol (Atenolol 50 Mg Tablet) 50 mg PO DAILY [facility]; Protocol Last Admin: 07/11/22 08:30 Dose: 50 mg Dexamethasone Sodium Phosphate (Dexamethasone Sod Phosphate 4 Mg/Ml Vial) 6 mg IVPUSH DAILY [facility] Stop: 07/19/22 09:01 Last Admin: 07/11/22 08:30 Dose: 6 mg Enoxaparin Sodium (Enoxaparin Sodium 30 Mg/0.3 Ml Syringe) 30 mg SUBCUT Q24H [facility] Last Admin: 07/11/22 08:28 Dose: 30 mg Gabapentin (Gabapentin 300 Mg Capsule) 300 mg PO BEDTIME [facility] Last Admin: 07/10/22 20:56 Dose: 300 mg Insulin Human Lispro (Insulin Lispro 100 Unit/Ml 3 Ml Vial) 0 unit SUBCUT QIDACHS [facility]; Protocol Last Admin: 07/11/22 11:32 Dose: 1 unit Ondansetron HCl (Ondansetron Hcl 4 Mg/2 Ml Vial) 4 mg IVPUSH Q8H PRN PRN Reason: Nausea and Vomiting Pharmacy Consult (Consult Rx Perform Med Rec) 1 each MISCELLANE ONCE PRN PRN Reason: Consult order Sodium Chloride (0.9 % Sodium Chloride Flush 3 Ml Syringe) 3 ml IVFLUSH QSHIFT [facility] Last Admin: 07/11/22 08:29 Dose: 3 ml Home Medications Medication Instructions Recorded Confirmed Last Taken Type aspirin 81 mg tablet,delayed 81 mg PO DAILY 08/10/20 07/10/22 07/09/22 History release (Adult Low Dose Aspirin) calcium carbonate 600 mg calcium 600 mg PO BID 08/10/20 07/10/22 07/09/22 History (1,500 mg) tablet (Calcium) patiromer calcium sorbitex 8.4 8.4 g PO DAILY 07/01/22 07/10/22 07/09/22 History gram oral powder packet (Veltassa) Physical Exam Vital Signs: Vital Signs: Last Vital Signs Temp 98.7 F 07/11/22 16:00 Pulse 56 07/11/22 16:00 Resp 18 07/11/22 16:00 BP 134/30 L 07/11/22 16:00 Pulse Ox 92 09/30/22 16:00 O2 Del Method 07/11/22 16:00 O2 Flow Rate 2 07/11/22 11:30 BMI result Body Mass Index 43.1 Const: General: cooperative HEENT: Head: Yes normal to inspection Face and sinus: Yes normal facial exam Mouth: Normal oral and palatal mucosa present Teeth and gingiva: dentition normal Eyes: General: appearance normal, both eyes and all related structures Pupils: Equal, round and reactive pupils present Resp: Effort & Inspection: normal respiratory effort Cardio: Rate: regular rate Rhythm: regular rhythm GI: Palpation (GI): Soft to palpation and nontender : General: Yes no CVA tenderness Back/Spine/Pelvis: Back: no CVA tenderness Skin: General skin exam: no rashes or lesions noted Neuro: General: moves all extremities Cranial nerves: Yes Equal, round and reactive pupils present Extrem: General: Yes normal to inspection Psych: Appearance: grossly normal Results Labs CBC & Chem 7: 07/11/22 06:30 07/11/22 06:30 Labs: Short CBC 07/11/22 Range/Units 06:30 WBC 8.6 (4.8-10.8) X10*3/uL Hgb 12.1 (12.0-16.0) g/dl Hct 38.1 (37.0-47.0) % Plt Count 192 (160-400) X10*3/uL BMP 07/11/22 06:30 Sodium 139 Potassium 5.4 H Chloride 101 Carbon Dioxide 22 BUN 44 H Creatinine 1.92 H Calcium 9.2 D Assessment and Plan (1) Pneumonia due to COVID-19 virus: Status: Acute She has COVID of unknown duration and was positive at home three days ago. Since she is also negative now and has COVID unknown duration Remdesivir unlikely benefit. Plan Dexamethasone 6 mg IV or po for 10 days Baricitinib if highflow oxygen consider
[2022-07-11] MEDS: Sodium Zirconium Cyclosilicate 5 GM POWD.PACK PO (17:38)
[2022-07-11 20:00] VITALS: BP 134/65; PULSE 88; RESP 18; TEMP 37.1; O2SAT 95
[2022-07-11 20:17] LABS: Glucose, Whole Blood 399 mg/dL (60-115)
[2022-07-11] MEDS: Gabapentin 300 MG CAPSULE PO (21:03)
[2022-07-12] VITALS (7 sets, daily range): BP systolic 128–171; BP diastolic 59–72; PULSE 52–65; RESP 17–20; TEMP 35.8–37.1; O2SAT 92–97
--- NOTE | 2022-07-12 | ECG_ITS ---
Test Reason : sinus bradycardia Blood Pressure : / mmHG Vent. Rate : 056 BPM Atrial Rate : 056 BPM P-R Int : 164 ms QRS Dur : 076 ms QT Int : 452 ms P-R-T Axes : 077 022 028 degrees QTc Int : 436 ms Sinus bradycardia Low voltage QRS Borderline ECG When compared with ECG of 10-JUL-2022 18:31, No significant change was found Referred By: Sania Jones Electronically Signed By:IRA BOYER
[2022-07-12] MEDS: 0.9 % Sodium Chloride Flush 3 ML SYRINGE IVFLUSH ×4 (00:22→23:39)
[2022-07-12 07:24] LABS: Anion Gap 18 (12-20); Blood Urea Nitrogen 49 mg/dL (9-16); C Reactive Protein 1.39 mg/dL (< or = 0.50); Calcium 9.2 mg/dL (8.4-10.2); Carbon Dioxide 24 mmol/L (22-29); Chloride 100 mmol/L (96-108); Creatinine Clr Calc Pharmacy 35.1; Estimated Glomerular Filt Rate 30; Glucose Random 276 mg/dL (60-115); Lactate Dehydrogenase 158 U/L (122-220); Potassium 5.2 mmol/L (3.3-5.1); Sodium 137 mmol/L (135-145)
[2022-07-12 07:45] LABS: Ferritin 500 ng/mL (10-250)
[2022-07-12 08:12] LABS: Glucose, Whole Blood 247 mg/dL (60-115)
[2022-07-12] MEDS: Aspirin Enteric Coated 81 MG TABLET.DR PO (08:56)
[2022-07-12] MEDS: Enoxaparin Sodium 30 MG/0.3 ML SYRINGE SUBCUT (08:57)
[2022-07-12] MEDS: Insulin Lispro 100 UNIT/ML 3 ML VIAL SUBCUT ×4 (08:57→21:38)
[2022-07-12] MEDS: dexAMETHasone sod phosphate 4 MG/ML VIAL 6 MG IVPUSH (08:57)
[2022-07-12 11:27] LABS: Glucose, Whole Blood 282 mg/dL (60-115)
[2022-07-12] MEDS: Benzonatate 100 MG CAPSULE PO (12:31)
--- NOTE | 2022-07-12 12:58 | P.PNIM_ITS ---
Subjective Subjective Date of Service: 07/12/22 Interval History: seen and examined this morning Follow-up for respiratory failure Reports body aches, dry cough Denies fever, chills Review of Systems Review of Systems: Yes all other systems are reviewed and are negative Constitutional Constitutional: Reports body ache(s), Denies chills and Denies fever(s) Cardiovascular Cardiovascular: Denies chest pain, Denies palpitations and Reports dyspnea on exertion Respiratory Respiratory: Reports cough and Reports dyspnea on exertion Gastrointestinal Gastrointestinal: Denies abdominal pain, Denies nausea and Denies vomiting Endocrine Endocrine: Denies palpitations Physical Exam Vital Signs: Vital Signs: Last Vital Signs Temp 97.5 F 07/12/22 11:13 Pulse 55 07/12/22 11:13 Resp 18 07/12/22 11:13 BP 153/65 H 07/12/22 11:13 Pulse Ox 94 07/12/22 11:13 O2 Del Method 07/12/22 11:13 O2 Flow Rate 2 07/12/22 04:00 BMI result Body Mass Index 43.1 Const: General: cooperative, comfortable, alert and awake Nutritional Appearance: obese Orientation/consciousness: patient oriented x3 Resp: Other: scattered expiratory wheezing Effort & Inspection: normal respiratory effort and able to speak in complete sentences Auscultation: diminished lung sounds Cardio: Rate: regular rate Heart sounds: S1 normal heart sound present and S2 normal heart sound present GI: Inspection: No distended Palpation (GI): Soft to palpation and nontender Neuro: General: patient oriented x3 and CN's II-XI intact bilaterally Extrem: General: Yes no pedal edema Objective Data Active Medications Acetaminophen (Acetaminophen 325 Mg Tablet) 650 mg PO Q6H PRN PRN Reason: Pain, Mild (Pain Scale 1-3) Albuterol/Ipratropium (Albuterol/Iprat 2.5/0.5mg 3 Ml Ampul.Neb) 3 ml INHALE RQ6H PRN PRN Reason: Shortness of Breath/Wheezing Aspirin (Aspirin Enteric Coated 81 Mg Tablet.) 81 mg PO DAILY [facility] Last Admin: 07/12/22 08:56 Dose: 81 mg Documented By: ARIANA Atenolol (Atenolol 25 Mg Tablet) 25 mg PO DAILY [facility]; Protocol Benzonatate (Benzonatate 100 Mg Capsule) 100 mg PO TID PRN PRN Reason: Cough Last Admin: 07/12/22 12:31 Dose: 100 mg Documented By: ARIANA Dexamethasone Sodium Phosphate (Dexamethasone Sod Phosphate 4 Mg/Ml Vial) 6 mg IVPUSH DAILY [facility] Stop: 07/19/22 09:01 Last Admin: 07/12/22 08:57 Dose: 6 mg Documented By: ARIANA Enoxaparin Sodium (Enoxaparin Sodium 30 Mg/0.3 Ml Syringe) 30 mg SUBCUT Q24H [facility] Last Admin: 07/12/22 08:57 Dose: 30 mg Documented By: ARIANA Gabapentin (Gabapentin 300 Mg Capsule) 300 mg PO BEDTIME [facility] Last Admin: 07/11/22 21:03 Dose: 300 mg Documented By: JOHN Insulin Human Lispro (Insulin Lispro 100 Unit/Ml 3 Ml Vial) 0 unit SUBCUT QIDACHS [facility]; Protocol Last Admin: 07/12/22 12:27 Dose: 6 unit Documented By: ARIANA Ondansetron HCl (Ondansetron Hcl 4 Mg/2 Ml Vial) 4 mg IVPUSH Q8H PRN PRN Reason: Nausea and Vomiting Pharmacy Consult (Consult Rx Perform Med Rec) 1 each MISCELLANE ONCE PRN PRN Reason: Consult order Sodium Chloride (0.9 % Sodium Chloride Flush 3 Ml Syringe) 3 ml IVFLUSH QSHIFT [facility] Last Admin: 07/12/22 08:58 Dose: 3 ml Documented By: ARIANA Labs CBC & Chem 7: 07/11/22 06:30 07/12/22 05:56 Labs: Laboratory Results - last 24 hr 07/11/22 07/11/22 07/12/22 16:37 20:13 05:56 Anion Gap 18 Estim Creat Clear Calc 35.1 Estimated GFR 30 POC Glucose 291 H 399 H* Random Glucose 276 H Calcium 9.2 Ferritin 500 H Lactate Dehydrogenase 158 C-Reactive Protein 1.39 H 07/12/22 07/12/22 07:45 11:18 Anion Gap Estim Creat Clear Calc Estimated GFR POC Glucose 247 H 282 H Random Glucose Calcium Ferritin Lactate Dehydrogenase C-Reactive Protein Assessment and Plan (1) Pneumonia due to COVID-19 virus: Status: Acute Plan This is a 71 yo F who is immunocompromised due to her RA treatment + IDDM, who tested positive for COVID on 07/08/22 and now presents with worsening fatigue and respiratory symptoms. She is found to be hypoxic and is requiring O2. COVID testing is negative in the ED. Acute respiratory failure with hypoxia secondary to COVID19 Given positive test at home - will presume COVID as the culprit still sob with exertion. on room air at rest, will ambulate and evaluate for hypoxia continue Decadron seen by ID, no additional treatment indicated maintain isoloation trend inflammatory biomakers bradycardia HR high 40s/low 50s asymptomatic EKG with sinus bradycardia hold atenolol for now, likely discharge with lower dose Hyperkalemia Improving with lokelma follow bmp monitor on tele hold peg inhibitor SHIRA on CKD stage 3 creatinine down to 1.69 from 2.10 on admission monitor and renally dose meds DM Toueo nonformulary continue SSI ADA diet HTN resume norvasc hold PEG for SHIRA decrease dose of atenolol presumed CHF, unspecified resume Bumex RA hold immunosuppresive treatments for now Full Code DVT pptx, Lovenox attending - dr. burns patient requires ongoing inpatient hospitalization for hypoxia and positive covid test home (with her baseline immunocompromised state) Quality Stroke Does the patient have a stroke diagnosis?: No VTE Prior VTE?: No VTE Risk Level:: Medical - moderate - high VTE Device Contraindication: Treatment Not Indicated VTE Drug Contraindication: N/A - Med Ordered
[2022-07-12] MEDS: amLODIPine Besylate 10 MG TABLET PO (14:37)
[2022-07-12] MEDS: guaiFENesin LA 600 MG TAB.ER.12H PO ×2 (14:37→21:38)
[2022-07-12 16:19] LABS: Glucose, Whole Blood 323 mg/dL (60-115)
[2022-07-12 21:18] LABS: Glucose, Whole Blood 268 mg/dL (60-115)
[2022-07-12] MEDS: Gabapentin 300 MG CAPSULE PO (21:38)
--- NOTE | 2022-07-13 | ECG_ITS ---
Test Reason : Ordered by Blood Pressure : / mmHG Vent. Rate : 060 BPM Atrial Rate : 060 BPM P-R Int : 162 ms QRS Dur : 078 ms QT Int : 436 ms P-R-T Axes : 059 031 040 degrees QTc Int : 436 ms Normal sinus rhythm Normal ECG Referred By: Sania Jones Electronically Signed By:
--- NOTE | 2022-07-13 | ECG_ITS ---
Test Reason : Ordered by Blood Pressure : / mmHG Vent. Rate : 060 BPM Atrial Rate : 060 BPM P-R Int : 162 ms QRS Dur : 078 ms QT Int : 436 ms P-R-T Axes : 059 031 040 degrees QTc Int : 436 ms Normal sinus rhythm Normal ECG When compared with ECG of 12-JUL-2022 09:12, No significant change was found Referred By: Sania Jones Electronically Signed By:IRA BOYER
[2022-07-13 07:24] LABS: Anion Gap 17 (12-20); Blood Urea Nitrogen 44 mg/dL (9-16); Calcium 9.1 mg/dL (8.4-10.2); Carbon Dioxide 22 mmol/L (22-29); Chloride 102 mmol/L (96-108); Creatinine Clr Calc Pharmacy 48.6; Estimated Glomerular Filt Rate 43; Glucose Random 242 mg/dL (60-115); Potassium 4.7 mmol/L (3.3-5.1); Sodium 136 mmol/L (135-145)
[2022-07-13 07:27] VITALS: BP 162/64; PULSE 50; RESP 16; TEMP 36.3; O2SAT 95
[2022-07-13 07:28] LABS: Glucose, Whole Blood 211 mg/dL (60-115)
[2022-07-13] MEDS: Insulin Lispro 100 UNIT/ML 3 ML VIAL SUBCUT ×2 (08:29→12:18)
[2022-07-13] MEDS: guaiFENesin LA 600 MG TAB.ER.12H PO (08:30)
[2022-07-13] MEDS: Bumetanide 1 MG TABLET PO (08:30)
[2022-07-13] MEDS: dexAMETHasone sod phosphate 4 MG/ML VIAL 6 MG IVPUSH (08:30)
[2022-07-13] MEDS: Aspirin Enteric Coated 81 MG TABLET.DR PO (08:30)
[2022-07-13] MEDS: Enoxaparin Sodium 30 MG/0.3 ML SYRINGE SUBCUT (08:30)
[2022-07-13] MEDS: amLODIPine Besylate 10 MG TABLET PO (08:31)
[2022-07-13] MEDS: 0.9 % Sodium Chloride Flush 3 ML SYRINGE IVFLUSH (08:31)
--- NOTE | 2022-07-13 11:36 | P.DS_ITS ---
DS: Providers Provider Date of Service: 07/13/22 Date of admission: 07/10/22 09:10 Date of discharge: 07/13/22 Primary care physician: Lyndsay Yan MD Consults: 07/10/22 09:12 Consult to Infectious Diseases Routine Consulting Provider: Beryl Plummer Reason for consultation: covid positive 07/08 at home, hypoxic, but negative here Attending physician on discharge: [facility] Discharging clinician: Sania Jones DS: Diagnosis Discharge Diagnosis (1) Pneumonia due to COVID-19 virus: Status: Acute (2) Acute kidney injury superimposed on CKD: Status: Acute (3) Hyperkalemia: Status: Acute DS: Summary Hospital Course Hospital Course: From H&P on day of admission This is a 71 year old female with a PMH of CKD stage 4, Seropositive RA on Humira / Leflunomide and recently tapered off prednisone, HTN, DM who presents to the ED with a 2 day history of worsening cough, shortness of breath and fatigue. The patient reports that she woke up on 07/08/22 (2 days prior to admission) with severe fatigue and cough. She tested herself at home and was positive for COVID. She reports no known sick contacts. She denies any objective fevers or chills. She reports that the last 24 hours she has continued to feel worse and was starting to become short of breath with minimal exertion. Her cough was prohibitive to her sleeping and hence she decided to seek medical care. In the ED she was found to be hypoxic down to 87% on RA with associated increased work of breathing. She was placed on 2L NC with improvement in her O2 sats as well has work of breathing. COVID testing was completed as part of the admission process, but that was negative. She has been given 1 dose of decadron and will now be admitted for further treatment. Acute respiratory failure with hypoxia secondary to COVID19. Given positive test at home - will presume COVID as the culprit despite negative tested emergency room. She was initially started on IV Decadron. she was seen by ID, no additional treatment indicated. trend inflammatory biomakers have trended down. She was weaned off supplemental oxygen and is saturating in the mid 90s on room air. she dyspnea has improved. She continues to have dry cough and will be discharged with tessalon for symptomatic treatment. She was able to ambulate without hypoxia or dyspnea and is stable for return home. She should continue to isolate per cdc guidelines. bradycardia HR noted to be in high 40s/low 50s. EKG with sinus bradycardia. atenolol was discontinued and HR remained low. Will discharge off atenolol. Should follow up with PCP, can consider resuming at lower dose if HR rebounds. Hyperkalemia. potassium levels initially were 5.9. She was treated with Lokelma with improvement of potassium to 4.7. It appears on chart review that her potassium levels have been elevated frequently in the past. Initially her PEG-inhibitor was placed on hold,Her dose of lisinopril will be decreased from 40 mg to 20 mg daily on discharge. SHIRA on CKD stage 3. creatinine was initially 2.10, on chart review creatinine has been higher however after holding Bumex and lisinopril, creatinine trended down to 1.22. Bumex was resumed and lisinopril will be resumed at a lower dose. Recommend to repeat BMP in 1 week Time Spent with Patient Time attestation: Total time spent providing and/or coordinating discharge services: Discharge coordination time: Greater than 30 minutes Quality: Safe Use of Opioids Does Pt have an Active Cancer Diagnosis on the Problem List?: No Quality: Stroke Does the patient have a stroke diagnosis?: No Physical Exam Vital Signs: Vital Signs: Last Vital Signs Temp 97.4 F 07/13/22 07:27 Pulse 50 07/13/22 07:27 Resp 16 07/13/22 07:27 BP 162/64 H 07/13/22 07:27 Pulse Ox 95 07/13/22 07:27 O2 Del Method 07/13/22 07:27 O2 Flow Rate 2 07/12/22 04:00 BMI result Body Mass Index 43.1 DS: Data Data Completed and Pending Labs on day of discharge: Laboratory Results - last 24 hr 07/12/22 07/12/22 07/13/22 16:15 21:11 06:40 Sodium 136 Potassium 4.7 Chloride 102 Carbon Dioxide 22 Anion Gap 17 BUN 44 H Creatinine 1.22 Estim Creat Clear Calc 48.6 Estimated GFR 43 POC Glucose 323 H 268 H Random Glucose 242 H Calcium 9.1 07/13/22 07:23 Sodium Potassium Chloride Carbon Dioxide Anion Gap BUN Creatinine Estim Creat Clear Calc Estimated GFR POC Glucose 211 H Random Glucose Calcium Discharge Plan Discharge Anticipated Discharge Date/Time: 07/13/22 11:29 Patient Disposition: Home, Self-Care Discharge Diagnosis: hypoxia bradycardia Referrals: Lyndsay Yan MD [Primary Care Provider] - 1 Week Discharge Medications: New lisinopril 20 mg tablet 20 mg PO DAILY 30 Days Qty: 30 0RF dexamethasone [Decadron] 6 mg tablet 6 mg PO DAILY 7 Days Qty: 7 0RF benzonatate 100 mg capsule 100 mg PO TID PRN (Reason: cough) Qty: 15 0RF Continued pravastatin 40 mg tablet 40 mg PO BEDTIME Qty: 90 3RF amlodipine 10 mg tablet 10 mg PO DAILY Qty: 90 3RF albuterol sulfate [ProAir HFA] 90 mcg/actuation HFA aerosol inhaler 2 puff inhalation Q6H PRN (Reason: shortness of breath or wheezing) Qty: 8.5 2RF insulin lispro [Humalog U-100 Insulin] 100 unit/mL solution See Rx Instructions subcut DAILY Qty: 70 2RF Rx Instructions: up to 70 units daily via patch pump subcutaneously daily; Januvia 50 mg tablet 50 mg PO DAILY Qty: 90 1RF gabapentin [Neurontin] 300 mg capsule 300 mg PO BEDTIME Qty: 90 0RF leflunomide 10 mg tablet 10 mg PO DAILY Qty: 30 0RF bumetanide 1 mg tablet 1 mg PO DAILY Qty: 90 0RF Toujeo Max U-300 SoloStar 300 unit/mL (3 mL) insulin pen 40 unit subcut BEDTIME 90 Days Qty: 12 1RF aspirin [Adult Low Dose Aspirin] 81 mg tablet,delayed release (DR/EC) 81 mg PO DAILY calcium carbonate [Calcium 600] 600 mg calcium (1,500 mg) tablet 600 mg PO BID Veltassa 8.4 gram powder in packet 8.4 g PO DAILY Humira 40 mg/0.8 mL syringe kit See Rx Instructions subcut .COMPLEX Qty: 6 0RF Rx Instructions: inject one - 40 mg/0.8 mL syringe every 2 weeks subcut Discontinued atenolol 50 mg tablet 50 mg PO DAILY Qty: 90 1RF lisinopril 40 mg tablet 40 mg PO DAILY Qty: 90 3RF No Action (DME) V-GO 40 Device See Rx Instructions .Route Qty: 30 3RF Rx Instructions: As directed (DME) OneTouch Ultra Test Strip See Rx Instructions .ROUTE QID Qty: 300 3RF Rx Instructions: 3x daily (DME) pen needle, diabetic 32 gauge x 5/32 needle See Rx Instructions subcut DAILY Qty: 100 2RF Rx Instructions: Once a day Discharge Orders: Discharge Order (Routine); Ordered 07/13/22 Ordered By: Sania Jones Activity on Discharge: As tolerated Stand Alone Forms: Patient Portal Discharge page Other Ambulatory Orders: Basic Metabolic Panel (Routine) Timeframe: [id number] Facility: [facility] - Location: Laboratory Ordered By: Sania Jones Care Plan Goals: see below Health Concerns: Hypoxia - possibly related to covid 19 Bradycardia Acute kidney injury elevated potassium levels Plan of Treatment: Stop taking atenolol Your dose of lisinopril has been decreased Complete course of steroids Call to schedule follow up appointment with your PCP to monitor your blood pressure Repeat kidney function labs in one week continue isolation per CDC guidelines Assessment: see discharge summary Discharge Date/Time: 07/13/22 12:33
[2022-07-13 11:37] LABS: Glucose, Whole Blood 257 mg/dL (60-115)
--- NOTE | 2022-07-13 12:17 | MHC.CM.PN ---
order for home, self-care. CM acknowledged.
== END 2022-07-13 12:33 | disposition home or self-care (01) | DRG 177 ==
LOC: HO.ED 04:29 → HO.EDOVER 09:23 → HO.IMC 17:57
PROVIDERS: Internal Medicine; Admitting Provider Family Medicine; Emergency Provider Emergency Medicine Emergency Medical Services; PCP Internal Medicine; Visit Provider Physician Assistant Medical
DX: U07.1 COVID-19 (principal); J12.82 Pneumonia due to coronavirus disease 2019; J96.01 Acute respiratory failure with hypoxia; D84.821 Immunodeficiency due to drugs; Z68.41 Body mass index [BMI] 40.0-44.9, adult; I12.9 Hypertensive chronic kidney disease with stage 1 through stage 4 chronic kidney disease, or unspecified chronic kidney disease; N18.30 Chronic kidney disease, stage 3 unspecified; E11.22 Type 2 diabetes mellitus with diabetic chronic kidney disease; E87.5 Hyperkalemia; E78.5 Hyperlipidemia, unspecified; E11.42 Type 2 diabetes mellitus with diabetic polyneuropathy; R00.1 Bradycardia, unspecified; E66.09 Other obesity due to excess calories; M05.9 Rheumatoid arthritis with rheumatoid factor, unspecified; Z20.822 Contact with and (suspected) exposure to COVID-19; Z87.891 Personal history of nicotine dependence; Z88.0 Allergy status to penicillin; Z88.5 Allergy status to narcotic agent; Z79.4 Long term (current) use of insulin; Z79.82 Long term (current) use of aspirin; Z79.899 Other long term (current) drug therapy
CPT/HCPCS: 36415; 71045; 80048; 80053; 82728; 82947; 83615; 84145; 85025; 85027; 85379; 86140; 87502; 87635; 93005; 96374; 99285; J1100; J1650

== ENCOUNTER 2022-07-18 10:06 | Outpatient (REF) | payer MEDICARE, SELFPAY ==
[2022-07-18 12:07] LABS: Anion Gap 16 (12-20); Blood Urea Nitrogen 54 mg/dL (9-16); Calcium 9.1 mg/dL (8.4-10.2); Carbon Dioxide 22 mmol/L (22-29); Chloride 103 mmol/L (96-108); Estimated Glomerular Filt Rate 33; Glucose Random 100 mg/dL (60-115); Potassium 4.6 mmol/L (3.3-5.1); Sodium 136 mmol/L (135-145)
== END 2022-07-18 10:07 | disposition home or self-care (01) ==
LOC: HO.HMGCLDS 10:06
PROVIDERS: PCP Internal Medicine; Visit Provider Physician Assistant Medical
DX: E87.5 Hyperkalemia (principal); N17.9 Acute kidney failure, unspecified
CPT/HCPCS: 36415; 80048

== ENCOUNTER → 2022-07-22 15:06 | Outpatient (BNVA) | payer MEDICARE, SELFPAY | PROVIDERS: PCP Internal Medicine; Visit Provider Internal Medicine Endocrinology, Diabetes & Metabolism | DX: E11.42 Type 2 diabetes mellitus with diabetic polyneuropathy (principal); Z79.4 Long term (current) use of insulin | CPT/HCPCS: 82947; 83036; 99212 ==

== ENCOUNTER → 2022-08-01 08:49 | Outpatient (BNVA) | payer MEDICARE, SELFPAY | PROVIDERS: PCP Internal Medicine; Visit Provider Registered Nurse Diabetes Educator | DX: E11.42 Type 2 diabetes mellitus with diabetic polyneuropathy (principal); Z79.4 Long term (current) use of insulin | CPT/HCPCS: 99211 ==

== ENCOUNTER → 2022-09-01 09:56 | Outpatient (BNVA) | payer MEDICARE, SELFPAY | PROVIDERS: PCP Internal Medicine; Visit Provider Registered Nurse Diabetes Educator | DX: E11.319 Type 2 diabetes mellitus with unspecified diabetic retinopathy without macular edema (principal) | CPT/HCPCS: 99211 ==

== ENCOUNTER 2022-09-10 10:35 | Emergency (ER) | payer MEDICARE, SELFPAY ==
--- NOTE | ~2022-09-10 | XR_ITS ---
EXAMINATION: XR CHEST CLINICAL INFORMATION: Diminished lung sounds COMPARISON: 07/10/2022 TECHNIQUE: 2 views of the chest were obtained. FINDINGS: No acute finding. No failure or infiltrate. There is no effusion. Lung conway are comparable to previous. The cardiac silhouette is comparable. The hilar structures are felt to be comparable. No suspicious increase. Some degenerative change in the thoracic spine which appears moderate. No acute compression injury. XR/XR chest 2V IMPRESSION: No acute finding.
[2022-09-10 10:44] VITALS: BP 160/46; PULSE 81; RESP 18; TEMP 35.6; O2SAT 94; BMI 39.0
[2022-09-10 11:06] LABS: MANUAL DIFF FLAG NO
[2022-09-10 11:07] LABS: Basophils Percent Auto 0.5 % (0-2); Eosinophils Percent Auto 0.6 % (0-4); Hematocrit 43.7 % (37.0-47.0); Hemoglobin 14.1 g/dl (12.0-16.0); Imm Gran Abs Auto 0.05 X10*3/uL (0.00-0.03); Imm Gran Pct Auto 0.8 % (0.0-0.4); Lymphocytes Absolute Auto 1.5 X10*3/uL (1.2-4.9); Lymphocytes Percent Auto 24.5 % (20-40); Mean Corpuscular HGB Conc 32.3 g/dl (31.0-35.0); Mean Corpuscular Hemoglobin 28.1 pg (27.0-33.0); Mean Corpuscular Volume 87.2 fL (80.0-98.0); Mean Platelet Volume 11.5 fL (9.4-12.3); Monocytes Absolute Auto 0.6 X10*3/uL (0.1-1.2); Monocytes Percent Auto 9.6 % (2-11); Platelet Count 177 X10*3/uL (160-400); Red Blood Count 5.01 X10*6/uL (4.20-5.50); Red Cell Distribution Width 14.1 % (11.0-16.0); White Blood Count 6.3 X10*3/uL (4.8-10.8)
[2022-09-10 11:22] LABS: Appearance Urine Clear; Color Urine Yellow; Glucose Urine UA Negative (Negative); Leukocyte Esterase Urine Negative (Negative); Nitrite Urine Negative (Negative); PH 5.5 (5.0-9.0); Urine Blood Negative (Negative); Urine Ketones Negative (Negative); Urine Protein Negative (Neg-Trace)
[2022-09-10 11:24] LABS: COVID-19 Test Negative (Negative); IDNOW Serial# 16C4AD1C
[2022-09-10 11:27] LABS: Alanine Aminotransferase 27 U/L (0-31); Albumin Level 4.3 g/dL (3.5-5.0); Alkaline Phosphatase 58 U/L (39-117); Anion Gap 19 (12-20); Aspartate Amino Transferase 45 U/L (5-31); Bilirubin Direct 0.3 mg/dL (0.0-0.5); Bilirubin Total 0.5 mg/dL (0.0-1.0); Blood Urea Nitrogen 40 mg/dL (9-16); Calcium 9.4 mg/dL (8.4-10.2); Carbon Dioxide 23 mmol/L (22-29); Chloride 102 mmol/L (96-108); Creatinine Clr Calc Pharmacy 31.4; Estimated Glomerular Filt Rate 28; Glucose Random 181 mg/dL (60-115); Lipase 106 U/L (8-78); Sodium 139 mmol/L (135-145)
[2022-09-10 13:53] VITALS: BP 184/65; PULSE 84; RESP 18; TEMP 36.4; O2SAT 95
--- NOTE | 2022-09-10 14:05 | ECG_ITS ---
Test Reason : SOB Blood Pressure : / mmHG Vent. Rate : 064 BPM Atrial Rate : 064 BPM P-R Int : 178 ms QRS Dur : 074 ms QT Int : 422 ms P-R-T Axes : 064 007 037 degrees QTc Int : 435 ms Normal sinus rhythm Normal ECG When compared with ECG of 13-JUL-2022 10:03, T wave amplitude has decreased in Lateral leads Referred By: Lorrie Caro Electronically Signed By:SILVIA ARGUETA MD
--- NOTE | 2022-09-10 14:30 | ED.NAVMDI ---
HPI - Nausea/Vomiting/Diarrhea General Chief complaint: Nausea/Vomiting/Diarrhea Stated complaint: cant keep anything down Time Seen by Provider: 09/10/22 13:53 Source: patient Mode of arrival: ambulatory Limitations: no limitations History of Present Illness HPI Narrative: 72-year-old female with a past medical history of CKD, spondylosis of lumbar spine, spinal stenosis, rheumatoid arthritis on methotrexate, diabetes, hypogammaglobulinemia, and history of laparoscopic cholecystectomy presents the emergency department after 3 days of nausea, vomiting, and diarrhea. Yesterday she has been able to tolerate water and Pedialyte and vomited this morning after eating oatmeal. She states she began weekly Ozempic 08/24/22, with her last dose this Thursday. She states soon after taking the medication she began having nausea, vomiting. She contacted the prescribing provider and was told to discontinue the medication. MD elicited complaint: nausea, vomiting and diarrhea Related Data Home Medications Medication Instructions Recorded Confirmed aspirin 81 mg tablet,delayed 81 mg PO DAILY 08/10/20 07/10/22 release (Adult Low Dose Aspirin) calcium carbonate 600 mg calcium 600 mg PO BID 08/10/20 07/10/22 (1,500 mg) tablet (Calcium) patiromer calcium sorbitex 8.4 8.4 g PO DAILY 07/01/22 07/10/22 gram oral powder packet (Veltassa) Previous Rx's Medication Instructions Recorded pen needle, diabetic 32 gauge x #100 ea 03/01/21 blood sugar diagnostic (OneTouch #300 ea 10/22/21 Ultra Test strips) albuterol sulfate 90 mcg/actuation 2 puff inhalation Q6H PRN 03/25/22 aerosol inhaler (ProAir HFA) shortness of breath or wheezing #8.5 grams sub-q insulin device, 40 unit #30 ea 07/02/22 (V-GO 40 device) insulin glargine U-300 conc 300 40 unit (0.1333 mL) subcut BEDTIME 07/22/22 unit/mL (3 mL) subcutaneous pen 90 days #12 mL (Toujeo Max U-300 SoloStar) insulin lispro 100 unit/mL See Rx Instructions subcut DAILY 07/29/22 subcutaneous solution (Humalog #70 mL U-100 Insulin) lisinopril 20 mg tablet 20 mg PO DAILY 30 days #90 tabs 08/04/22 bumetanide 1 mg tablet 1 mg PO DAILY #90 tabs 08/11/22 gabapentin 300 mg capsule 300 mg PO BEDTIME #90 caps 08/11/22 (Neurontin) leflunomide 10 mg tablet 10 mg PO DAILY #30 tabs 08/11/22 pravastatin 40 mg tablet 40 mg PO BEDTIME #90 tabs 08/11/22 adalimumab 40 mg/0.4 mL 40 mg (0.4 mL) subcut Q2W 56 days 09/01/22 subcutaneous pen kit (Humira(CF) #2 ea Pen) semaglutide 0.25 mg or 0.5 mg (2 0.5 mg (0.4 mL) subcut QWEEK #1.5 09/01/22 mg/1.5 mL) subcutaneous pen mL injector (Ozempic) azithromycin 250 mg tablet See Rx Instructions PO .COMPLEX #6 09/03/22 tabs ondansetron 4 mg disintegrating 4 mg PO Q8H 4 days #12 tabs 09/10/22 tablet Allergies Allergy/AdvReac Type Severity Reaction Status Date / Time codeine [Codeine] Allergy Severe DIFFICULTY Verified 09/03/22 08:18 BREATHING Penicillins AdvReac Intermediate stomach Verified 09/03/22 08:18 upset PMFSH Past Medical History Medical History Bronchitis CKD (chronic kidney disease) stage 2, GFR 60-89 ml/min CKD (chronic kidney disease) stage 3, GFR 30-59 ml/min Diabetic retinopathy associated with type 2 diabetes mellitus Dyslipidemia Essential hypertension GERD (gastroesophageal reflux disease) History of severe acute respiratory syndrome coronavirus 2 (SARS-CoV-2) disease 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 mellitus) Left low back pain Leg edema, left shelter (current) use of insulin Low back pain MGUS (monoclonal gammopathy of unknown significance) Obesity due to excess calories Postlaminectomy syndrome Spinal stenosis of lumbar region with radiculopathy Spondylosis of lumbar spine Swelling of left lower extremity Type 2 diabetes mellitus with diabetic polyneuropathy Surgical History History of back surgery Hx laparoscopic cholecystectomy Hx of cataract surgery Hx of colonoscopy Hx of tonsillectomy Family History Family History Mother Diabetes HTN (hypertension) CVD (cardiovascular disease) Father Hodgkin disease Social History Social History Household Members: None Housing: Condominium Alcohol intake: never Patient Tobacco Use Status: Former Tobacco user Tobacco use type: Cigarette Cigarettes Per Day: 50 Years Smoked: 20 Smoked in Last 30 Days: No e-Cigarette/Vaping Use: Never Used Use of substances other than those prescribed or required for medical reasons: No Advance Directives: Yes Advance Directives on File: Yes Advance Directives Date on File: 02/08/22 service: No Current occupational status: retired Cognitive needs: No Hearing needs: No Vision needs: No Physical Exam Vital Signs: Vital Signs: Last Vital Signs Temp 97.6 F 09/10/22 13:53 Pulse 84 09/10/22 13:53 Resp 18 09/10/22 13:53 BP 184/65 H 09/10/22 13:53 Pulse Ox 95 09/10/22 13:53 O2 Del Method 09/10/22 13:53 BMI result Body Mass Index 39.0 Medications Administered Discontinued Medications Generic Name Dose Route Start Last Admin Trade Name Shahriarq PRN Reason Stop Dose Admin Ondansetron HCl 4 mg 09/10/22 14:28 09/10/22 14:46 Ondansetron Odt 4 Mg Tab.Rapdis TRANSLINGU 09/10/22 14:29 4 mg ONCE ONE Administration MDM - Nausea/Vomiting/Diarrhea MDM Narrative Medical decision making narrative: 72-year-old female with a past medical history of CKD, spondylosis of lumbar spine, spinal stenosis, rheumatoid arthritis on methotrexate, diabetes, hypogammaglobulinemia, and history of laparoscopic cholecystectomy presents the emergency department after 3 days of nausea, vomiting, and diarrhea suspected to be reaction from Ozempic, which she began weekly 08/24/22, with her last dose this Thursday. His blood work essentially unremarkable. Serology negative for COVID-19. EKG NSR. Chest x-ray with no acute findings. Patient medicated with Zofran with moderate improvement with symptoms. Able to tolerate p.o. intake. Sublingual Zofran prescribed to help alleviate symptoms. Educated that was Ozempic is typically eliminated from the system in 7 days and that residual nausea, vomiting, and diarrhea may last for up to 7 days. Educated to contact her prescribing physician if symptoms last longer than 7 days. Educated to return to the emergency department for increasing nausea, vomiting, diarrhea, fever, chills, headache, vision changes, or any other emergent symptom that is concerning. Recommended to follow-up with your primary care provider and your lockstitch machine operator for further treatment and management. Lab Data Result diagrams: 09/10/22 11:09/10/22 11: Labs: Lab Results 09/10/22 09/10/22 09/10/22 Range/Units 11: 11: 11: WBC 6.3 (4.8-10.8) X10*3/uL RBC 5.01 (4.20-5.50) X10*6/uL Hgb 14.1 (12.0-16.0) g/dl Hct 43.7 (37.0-47.0) % MCV 87.2 (80.0-98.0) fL MCH 28.1 (27.0-33.0) pg MCHC 32.3 (31.0-35.0) g/dl RDW 14.1 (11.0-16.0) % Plt Count 177 (160-400) X10*3/uL MPV 11.5 (9.4-12.3) fL Immature Gran % (Auto) 0.8 H (0.0-0.4) % Neut % (Auto) 64.0 (45-73) % Lymph % (Auto) 24.5 (20-40) % [place] % (Auto) 9.6 (2-11) % Eos % (Auto) 0.6 (0-4) % Baso % (Auto) 0.5 (0-2) % Lymph # (Auto) 1.5 (1.2-4.9) X10*3/uL [place] # (Auto) 0.6 (0.1-1.2) X10*3/uL Eos # (Auto) 0.0 (0.0-0.4) X10*3/uL Baso # (Auto) 0.0 (0.0-0.2) X10*3/uL Abs Immat Gran (auto) 0.05 H (0.00-0.03) X10*3/uL Absolute Neuts (auto) 4.0 (2.0-8.3) x10*3/uL Absolute Nucleated RBC 0.000 (0.0-0.012) X10*3/uL Nucleated RBC % (auto) 0.0 (0.0-0.2) /100WBC Sodium 139 (135-145) mmol/L Potassium 5.0 (3.3-5.1) mmol/L Chloride 102 (96-108) mmol/L Carbon Dioxide 23 (22-29) mmol/L Anion Gap 19 (12-20) BUN 40 H (9-16) mg/dL Creatinine 1.76 H (0.5-1.4) mg/dL Estim Creat Clear Calc 31.4 Estimated GFR 28 Random Glucose 181 H (60-115) mg/dL Calcium 9.4 (8.4-10.2) mg/dL Total Bilirubin 0.5 (0.0-1.0) mg/dL Direct Bilirubin 0.3 (0.0-0.5) mg/dL AST 45 H D (5-31) U/L ALT 27 (0-31) U/L Alkaline Phosphatase 58 (39-117) U/L Total Protein 7.0 (6.5-8.0) g/dL Albumin 4.3 (3.5-5.0) g/dL Lipase 106 H (8-78) U/L Urine Color Urine Appearance Urine pH (5.0-9.0) Ur Specific [place] (1.005-1.025) Urine Protein (Neg-Trace) mg/dL Urine Glucose (UA) (Negative) mg/dL Urine Ketones (Negative) mg/dL Urine Blood (Negative) Urine Nitrite (Negative) Ur Leukocyte Esterase (Negative) COVID-19 (RADHA) Negative (Negative) COVID-19 Clin Com See Note 09/10/22 Range/Units 11:07 WBC (4.8-10.8) X10*3/uL RBC (4.20-5.50) X10*6/uL Hgb (12.0-16.0) g/dl Hct (37.0-47.0) % MCV (80.0-98.0) fL MCH (27.0-33.0) pg MCHC (31.0-35.0) g/dl RDW (11.0-16.0) % Plt Count (160-400) X10*3/uL MPV (9.4-12.3) fL Immature Gran % (Auto) (0.0-0.4) % Neut % (Auto) (45-73) % Lymph % (Auto) (20-40) % [place] % (Auto) (2-11) % Eos % (Auto) (0-4) % Baso % (Auto) (0-2) % Lymph # (Auto) (1.2-4.9) X10*3/uL [place] # (Auto) (0.1-1.2) X10*3/uL Eos # (Auto) (0.0-0.4) X10*3/uL Baso # (Auto) (0.0-0.2) X10*3/uL Abs Immat Gran (auto) (0.00-0.03) X10*3/uL Absolute Neuts (auto) (2.0-8.3) x10*3/uL Absolute Nucleated RBC (0.0-0.012) X10*3/uL Nucleated RBC % (auto) (0.0-0.2) /100WBC Sodium (135-145) mmol/L Potassium (3.3-5.1) mmol/L Chloride (96-108) mmol/L Carbon Dioxide (22-29) mmol/L Anion Gap (12-20) BUN (9-16) mg/dL Creatinine (0.5-1.4) mg/dL Estim Creat Clear Calc Estimated GFR Random Glucose (60-115) mg/dL Calcium (8.4-10.2) mg/dL Total Bilirubin (0.0-1.0) mg/dL Direct Bilirubin (0.0-0.5) mg/dL AST (5-31) U/L ALT (0-31) U/L Alkaline Phosphatase (39-117) U/L Total Protein (6.5-8.0) g/dL Albumin (3.5-5.0) g/dL Lipase (8-78) U/L Urine Color Yellow Urine Appearance Clear Urine pH 5.5 (5.0-9.0) Ur Specific [place] 1.010 (1.005-1.025) Urine Protein Negative (Neg-Trace) mg/dL Urine Glucose (UA) Negative (Negative) mg/dL Urine Ketones Negative (Negative) mg/dL Urine Blood Negative (Negative) Urine Nitrite Negative (Negative) Ur Leukocyte Esterase Negative (Negative) COVID-19 (RADHA) (Negative) COVID-19 Clin Com Discharge Plan Discharge Clinical Impression: Nausea & vomiting, Diarrhea Patient Disposition: Home, Self-Care Instructions: Acute Nausea and Vomiting (ED), Acute Diarrhea (ED) Additional Instructions: Zofran prescribed for you to help alleviate symptoms. Ozempic is typically eliminated from the system in 7 days and that residual nausea, vomiting, and diarrhea may last for up to 7 days with the worst symptoms at day 3-5. Please contact your prescribing physician if symptoms last longer than 7 days. Please return to the emergency department for increasing nausea, vomiting, diarrhea, fever, chills, headache, vision changes, or any other emergent symptom that is concerning. Recommended to follow-up with your primary care provider and your lockstitch machine operator for further treatment and management. Prescriptions: New ondansetron 4 mg tablet,disintegrating 4 mg PO Q8H 4 Days Qty: 12 0RF No Action albuterol sulfate [ProAir HFA] 90 mcg/actuation HFA aerosol inhaler 2 puff inhalation Q6H PRN (Reason: shortness of breath or wheezing) Qty: 8.5 2RF (DME) V-GO 40 Device See Rx Instructions .Route Qty: 30 3RF Rx Instructions: As directed Toujeo Max U-300 SoloStar 300 unit/mL (3 mL) insulin pen 40 unit subcut BEDTIME 90 Days Qty: 12 1RF insulin lispro [Humalog U-100 Insulin] 100 unit/mL solution See Rx Instructions subcut DAILY Qty: 70 2RF Rx Instructions: up to 70 units daily via patch pump subcutaneously daily; lisinopril 20 mg tablet 20 mg PO DAILY 30 Days Qty: 90 1RF leflunomide 10 mg tablet 10 mg PO DAILY Qty: 30 1RF gabapentin [Neurontin] 300 mg capsule 300 mg PO BEDTIME Qty: 90 1RF pravastatin 40 mg tablet 40 mg PO BEDTIME Qty: 90 3RF bumetanide 1 mg tablet 1 mg PO DAILY Qty: 90 0RF Humira(CF) Pen 40 mg/0.4 mL pen injector kit 40 mg subcut Q2W 56 Days Qty: 2 5RF Ozempic 0.25 mg or 0.5 mg(2 mg/1.5 mL) pen injector 0.5 mg subcut QWEEK Qty: 1.5 4RF azithromycin 250 mg tablet See Rx Instructions PO .COMPLEX Qty: 6 0RF Rx Instructions: For 250 mg dose pack: take 500 mg today (day 1), then 250 mg for 4 days (days 2-5) PO (DME) OneTouch Ultra Test Strip See Rx Instructions .ROUTE QID Qty: 300 3RF Rx Instructions: 3x daily aspirin [Adult Low Dose Aspirin] 81 mg tablet,delayed release (DR/EC) 81 mg PO DAILY calcium carbonate [Calcium 600] 600 mg calcium (1,500 mg) tablet 600 mg PO BID (DME) pen needle, diabetic 32 gauge x 5/32 needle See Rx Instructions subcut DAILY Qty: 100 2RF Rx Instructions: Once a day Veltassa 8.4 gram powder in packet 8.4 g PO DAILY Referrals: Lyndsay Yan MD [Primary Care Provider] - Print Language: Ivorian
[2022-09-10] MEDS: Ondansetron ODT 4 MG TAB.RAPDIS TRANSLINGU (14:46)
== END 2022-09-10 16:21 | disposition home or self-care (01) ==
PROVIDERS: Emergency Provider Student in an Organized Health Care Education/Training Program; PCP Internal Medicine
DX: R11.2 Nausea with vomiting, unspecified (principal); R19.7 Diarrhea, unspecified; Z20.822 Contact with and (suspected) exposure to COVID-19; E11.22 Type 2 diabetes mellitus with diabetic chronic kidney disease; I12.9 Hypertensive chronic kidney disease with stage 1 through stage 4 chronic kidney disease, or unspecified chronic kidney disease; N18.30 Chronic kidney disease, stage 3 unspecified; E78.5 Hyperlipidemia, unspecified; Z79.4 Long term (current) use of insulin; Z79.899 Other long term (current) drug therapy; Z79.02 Long term (current) use of antithrombotics/antiplatelets; Z87.891 Personal history of nicotine dependence
CPT/HCPCS: 36415; 71046; 80048; 80076; 81003; 83690; 85025; 87635; 93005; 99283; 99284

== ENCOUNTER 2022-09-18 09:32 | Outpatient (REF) | payer MEDICARE, SELFPAY ==
[2022-09-18 11:46] LABS: Alanine Aminotransferase 22 U/L (0-31); Aspartate Amino Transferase 25 U/L (5-31)
== END 2022-09-18 09:33 | disposition home or self-care (01) ==
LOC: HO.HMGCLDS 09:32
PROVIDERS: PCP Internal Medicine; Visit Provider Nurse Practitioner Family
DX: Z79.899 Other long term (current) drug therapy (principal)
CPT/HCPCS: 36415; 84450; 84460

== ENCOUNTER → 2022-10-03 08:49 | Outpatient (BNVA) | payer MEDICARE, SELFPAY | PROVIDERS: PCP Internal Medicine; Visit Provider Registered Nurse Diabetes Educator | DX: E11.42 Type 2 diabetes mellitus with diabetic polyneuropathy (principal); Z79.4 Long term (current) use of insulin | CPT/HCPCS: 99211 ==

== ENCOUNTER 2022-10-21 07:09 | Outpatient (REF) | payer MEDICARE, SELFPAY ==
[2022-10-21 11:47] LABS: Alanine Aminotransferase 11 U/L (0-31); Aspartate Amino Transferase 19 U/L (5-31); Cholesterol 165 mg/dL; HDL Cholesterol 51 mg/dL; LDL Cholesterol Calculated 91 mg/dl; Triglycerides 118 mg/dL
== END 2022-10-21 07:10 | disposition home or self-care (01) ==
LOC: HO.HMGCLDS 07:09
PROVIDERS: PCP Internal Medicine; Visit Provider Internal Medicine
DX: E11.42 Type 2 diabetes mellitus with diabetic polyneuropathy (principal)
CPT/HCPCS: 36415; 80061; 84450; 84460

== ENCOUNTER → 2022-10-23 10:15 | Outpatient (BNVA) | payer MEDICARE, SELFPAY | PROVIDERS: PCP Internal Medicine; Visit Provider Internal Medicine Endocrinology, Diabetes & Metabolism | DX: E11.42 Type 2 diabetes mellitus with diabetic polyneuropathy (principal); Z79.4 Long term (current) use of insulin | CPT/HCPCS: 82947; 83036; 99212 ==

== ENCOUNTER → 2022-10-30 09:34 | Outpatient (BNVA) | payer MEDICARE, SELFPAY | PROVIDERS: PCP Internal Medicine; Visit Provider Nurse Practitioner Family | DX: M05.9 Rheumatoid arthritis with rheumatoid factor, unspecified (principal); D80.1 Nonfamilial hypogammaglobulinemia; N18.30 Chronic kidney disease, stage 3 unspecified | CPT/HCPCS: 99212 ==

== ENCOUNTER 2022-11-11 10:32 | Outpatient (REF) | payer MEDICARE, SELFPAY ==
--- NOTE | ~2022-11-11 | MM_ITS ---
EXAMINATION: BONE DENSITOMETRY CLINICAL INDICATION: Long-term (current) use of systemic steroids. COMPARISON: Previous BD dated 11/04/2019 and baseline BD dated 05/12/2013. TECHNIQUE: Using a Voxound DXA System (software version: 13.1) manufactured by [employer] dual-energy x-ray absorptiometry was performed of the lumbar spine and left hip. The images are of good technical quality. Summary results are attached. FINDINGS: AP SPINE L1-L3 (excluding L4): The data of L1-L4 has been changed to exclude the L4 vertebral body, because degenerative changes at this level may cause overestimation of lumbar spine density. Current: BMD 1.502 g/cm2, Z-score 3.3, T-score 2.8, normal, 6.7% increase from previous, 7.0% increase from baseline (<5% change is not significant). Prior: BMD 1.408 g/cm2. Baseline: BMD 1.404 g/cm2. LEFT FEMUR, NECK: Current: BMD 0.882 g/cm2, Z-score -0.1, T-score -1.1, osteopenia. Prior: BMD 1.068 g/cm2. Baseline: BMD 1.099 g/cm2. LEFT FEMUR, TOTAL: Current: BMD 1.120 g/cm2, Z-score 1.6, T-score 0.9, normal, 7.4% decrease from previous, 10.3% decrease from baseline (<5% change is not significant). Prior: BMD 1.210 g/cm2. Baseline: BMD 1.248 g/cm2. IDENTIFIED RISK FACTORS: Menopause, osteoporosis, renal, rheumatoid arthritis, glucocorticoids (chronic), anticonvulsant. HISTORY OF FRACTURE: None listed. MEDICATIONS: Calcium, vitamin D. MM/XR DEXA axial skeleton IMPRESSION: 1. DIAGNOSIS: Osteopenia based on the lowest T-score value of -1.1 in the femoral neck applying World Health Organization criteria. 2. 10-YEAR FRACTURE RISK PREDICTION, FRAX: Major osteoporotic fracture (clinical spine, forearm, hip or shoulder) 16.6%. Hip fracture 2.5%. 3. Treatment Recommendations: NOF guidelines recommend consideration for treatment in postmenopausal women and men age 50 and older presenting with the following: -A hip or vertebral (clinical or morphometric) fracture. -T-score less than or equal to -2.5 at the femoral neck or spine after appropriate evaluation to exclude secondary causes. -Low bone mass at the hip or spine and a 10-year fracture probability by FRAX of greater than or equal to 3% for hip fracture or greater than or equal to 20% for major osteoporotic fracture based on the [place] adapted WHO algorithm. 4. Other Recommendations: All treatment decisions require clinical judgment and consideration of individual patient factors, including patient preferences, comorbidities, previous drug use, risk factors not captured in the FRAX model (e.g. frailty, falls, vitamin D deficiency, increased bone turnover, interval significant decline in bone density) and possible under or overestimation of fracture risk by FRAX. Additional medical evaluation for secondary cause of low bone mineral density may be appropriate. FUTURE SCAN RECOMMENDATION: People with diagnosed cases of osteoporosis or at high risk for fracture should have regular bone mineral density tests. For patients eligible for Medicare, routine testing is allowed once every 2 years. The testing frequency can be increased to one year for patients who have rapidly progressing disease, those who are receiving or discontinuing medical therapy to restore bone mass, or have additional risk factors.
== END 2022-11-11 10:33 | disposition home or self-care (01) ==
LOC: HO.MAMMO 10:32
PROVIDERS: PCP Internal Medicine; Visit Provider Nurse Practitioner Family
DX: Z13.820 Encounter for screening for osteoporosis (principal); Z78.0 Asymptomatic menopausal state; Z79.52 Long term (current) use of systemic steroids
CPT/HCPCS: 77080

== ENCOUNTER 2023-01-19 10:56 | Outpatient (REF) | payer MEDICARE, SELFPAY ==
--- NOTE | ~2023-01-19 | XR_ITS ---
EXAMINATION: XR HAND/WRIST, RIGHT CLINICAL INFORMATION: Pain. COMPARISON: Radiographs dated 04/27/2013. TECHNIQUE: PA, lateral, and oblique views of the right hand and wrist. FINDINGS: There is slight bony demineralization. No fracture or dislocation is seen. There are periarticular calcifications of the 1st, 2nd and 4th metacarpophalangeal joints. There are slight periarticular calcifications of the interphalangeal joint of the thumb and of the fourth distal interphalangeal joint. There is mild osteoarthritic change of the first carpometacarpal joint, with periarticular calcifications. There are soft tissue calcifications in the lateral wrist. No fracture, dislocation or focal bone erosion is seen. There is no foreign body. XR/XR hand wrist LT IMPRESSION: There are persistent, increased arthropathic changes as compared with 04/27/2017. Again, the possibility of inflammatory arthropathy cannot be excluded. EXAMINATION: XR HAND/WRIST, LEFT CLINICAL INFORMATION: Pain. COMPARISON: Radiographs dated 04/27/2013. TECHNIQUE: PA, lateral, and oblique views of the left hand and wrist. FINDINGS: There is slight bony demineralization. No fracture or dislocation is seen. There are periarticular calcifications of multiple interphalangeal and carpometacarpal joints. No fracture, dislocation or focal bone erosion is seen. No foreign body is seen. IMPRESSION: There are persistent, increased arthropathic changes as compared with 04/27/2017. Again, the possibility of inflammatory arthropathy is raised
--- NOTE | ~2023-01-19 | XR_ITS ---
EXAMINATION: XR HAND/WRIST, RIGHT CLINICAL INFORMATION: Pain. COMPARISON: Radiographs dated 04/27/2013. TECHNIQUE: PA, lateral, and oblique views of the right hand and wrist. FINDINGS: There is slight bony demineralization. No fracture or dislocation is seen. There are periarticular calcifications of the 1st, 2nd and 4th metacarpophalangeal joints. There are slight periarticular calcifications of the interphalangeal joint of the thumb and of the fourth distal interphalangeal joint. There is mild osteoarthritic change of the first carpometacarpal joint, with periarticular calcifications. There are soft tissue calcifications in the lateral wrist. No fracture, dislocation or focal bone erosion is seen. There is no foreign body. XR/XR hand wrist RT IMPRESSION: There are persistent, increased arthropathic changes as compared with 04/27/2017. Again, the possibility of inflammatory arthropathy cannot be excluded. EXAMINATION: XR HAND/WRIST, LEFT CLINICAL INFORMATION: Pain. COMPARISON: Radiographs dated 04/27/2013. TECHNIQUE: PA, lateral, and oblique views of the left hand and wrist. FINDINGS: There is slight bony demineralization. No fracture or dislocation is seen. There are periarticular calcifications of multiple interphalangeal and carpometacarpal joints. No fracture, dislocation or focal bone erosion is seen. No foreign body is seen. IMPRESSION: There are persistent, increased arthropathic changes as compared with 04/27/2017. Again, the possibility of inflammatory arthropathy is raised
[2023-01-19 13:47] LABS: MANUAL DIFF FLAG NO
[2023-01-19 13:59] LABS: Basophils Absolute Auto 0.1 X10*3/uL (0.0-0.2); Basophils Percent Auto 0.8 % (0-2); Eosinophils Absolute Auto 0.4 X10*3/uL (0.0-0.4); Eosinophils Percent Auto 5.7 % (0-4); Hematocrit 39.2 % (37.0-47.0); Hemoglobin 12.5 g/dl (12.0-16.0); Imm Gran Abs Auto 0.03 X10*3/uL (0.00-0.03); Imm Gran Pct Auto 0.4 % (0.0-0.4); Lymphocytes Percent Auto 28.2 % (20-40); Mean Corpuscular HGB Conc 31.9 g/dl (31.0-35.0); Mean Corpuscular Hemoglobin 28.3 pg (27.0-33.0); Mean Corpuscular Volume 88.7 fL (80.0-98.0); Mean Platelet Volume 11.4 fL (9.4-12.3); Monocytes Absolute Auto 0.9 X10*3/uL (0.1-1.2); Monocytes Percent Auto 12.7 % (2-11); Neutrophils Absolute Auto 3.7 x10*3/uL (2.0-8.3); Neutrophils Percent Auto 52.2 % (45-73); Platelet Count 253 X10*3/uL (160-400); Red Blood Count 4.42 X10*6/uL (4.20-5.50); Red Cell Distribution Width 13.3 % (11.0-16.0); White Blood Count 7.1 X10*3/uL (4.8-10.8)
[2023-01-19 14:13] LABS: Alanine Aminotransferase 11 U/L (0-31); Aspartate Amino Transferase 16 U/L (5-31); C Reactive Protein 0.67 mg/dL (< or = 0.50); Estimated Glomerular Filt Rate 28
[2023-01-19 14:32] LABS: Vitamin D 25-OH Total 56.2 ng/mL (>30)
[2023-01-19 14:38] LABS: Erythrocyte Sedimentation Rate 36 MM/HR (0-20)
== END 2023-01-19 10:57 | disposition home or self-care (01) ==
LOC: HO.HMGCX 10:56
PROVIDERS: PCP Internal Medicine; Visit Provider Nurse Practitioner Family
DX: M05.9 Rheumatoid arthritis with rheumatoid factor, unspecified (principal); M85.80 Other specified disorders of bone density and structure, unspecified site; M79.641 Pain in right hand; M79.642 Pain in left hand; Z79.899 Other long term (current) drug therapy
CPT/HCPCS: 36415; 73110; 73130; 82306; 82565; 84450; 84460; 85025; 85652; 86140

== ENCOUNTER → 2023-02-19 08:57 | Outpatient (BNVA) | payer MEDICARE, SELFPAY | PROVIDERS: PCP Internal Medicine; Visit Provider Nurse Practitioner Family | DX: M05.9 Rheumatoid arthritis with rheumatoid factor, unspecified (principal); D80.1 Nonfamilial hypogammaglobulinemia; N18.30 Chronic kidney disease, stage 3 unspecified | CPT/HCPCS: 99212 ==

== ENCOUNTER 2023-03-26 07:11 | Outpatient (REF) | payer MEDICARE, SELFPAY ==
[2023-03-26 09:09] LABS: MANUAL DIFF FLAG NO
[2023-03-26 09:24] LABS: Basophils Absolute Auto 0.1 X10*3/uL (0.0-0.2); Basophils Percent Auto 1.2 % (0-2); Eosinophils Absolute Auto 0.5 X10*3/uL (0.0-0.4); Eosinophils Percent Auto 6.7 % (0-4); Hematocrit 36.6 % (37.0-47.0); Hemoglobin 11.8 g/dl (12.0-16.0); Imm Gran Abs Auto 0.02 X10*3/uL (0.00-0.03); Imm Gran Pct Auto 0.3 % (0.0-0.4); Lymphocytes Absolute Auto 1.9 X10*3/uL (1.2-4.9); Lymphocytes Percent Auto 28.3 % (20-40); Mean Corpuscular HGB Conc 32.2 g/dl (31.0-35.0); Mean Corpuscular Hemoglobin 28.4 pg (27.0-33.0); Mean Corpuscular Volume 88.2 fL (80.0-98.0); Monocytes Absolute Auto 0.9 X10*3/uL (0.1-1.2); Monocytes Percent Auto 13.7 % (2-11); Neutrophils Absolute Auto 3.3 x10*3/uL (2.0-8.3); Neutrophils Percent Auto 49.8 % (45-73); Platelet Count 282 X10*3/uL (160-400); Red Blood Count 4.15 X10*6/uL (4.20-5.50); Red Cell Distribution Width 13.4 % (11.0-16.0); White Blood Count 6.7 X10*3/uL (4.8-10.8)
[2023-03-26 09:43] LABS: Alanine Aminotransferase 13 U/L (0-31); Alkaline Phosphatase 83 U/L (39-117); Amylase 91 U/L (28-100); Aspartate Amino Transferase 17 U/L (5-31); Bilirubin Direct 0.2 mg/dL (0.0-0.5); Bilirubin Total 0.5 mg/dL (0.0-1.0); Lipase 56 U/L (8-78); Total Protein 7.1 g/dL (6.5-8.0)
[2023-03-26 10:33] LABS: Erythrocyte Sedimentation Rate 38 MM/HR (0-20)
[2023-03-26 11:47] LABS: C Reactive Protein 0.51 mg/dL (< or = 0.50); Cholesterol 165 mg/dL; Estimated Glomerular Filt Rate 36; HDL Cholesterol 51 mg/dL; LDL Cholesterol Calculated 90 mg/dl; Triglycerides 124 mg/dL
[2023-03-26 11:51] LABS: Vitamin D 25-OH Total 51.4 ng/mL (>30)
== END 2023-03-26 07:12 | disposition home or self-care (01) ==
LOC: HO.HMGCLDS 07:11
PROVIDERS: Absent Provider Internal Medicine; PCP Internal Medicine; Referring Provider Internal Medicine Rheumatology; Visit Provider Internal Medicine
DX: M05.9 Rheumatoid arthritis with rheumatoid factor, unspecified (principal); R10.13 Epigastric pain; E11.42 Type 2 diabetes mellitus with diabetic polyneuropathy; E78.5 Hyperlipidemia, unspecified; Z79.899 Other long term (current) drug therapy
CPT/HCPCS: 36415; 80061; 80076; 82150; 82306; 82565; 83690; 85025; 85652; 86140

== ENCOUNTER 2023-03-31 09:20 | Outpatient (AMB) | payer MEDICARE, SELFPAY ==
--- NOTE | 2023-03-31 09:23 | A.OFFPC_ITS ---
Vital Signs 03/31/23 09:25 Height 5 ft 2 in Weight 214 lb BMI 39.1 BP 128/62 Blood Pressure Location Lt brachial Position Sitting Pulse 68 Pulse Source Pulse Oximeter Pulse Oximetry (%) 96 Oxygen Delivery Method Room Air Intake Visit Reasons: Annual PE Pt req morning Intake Note: Pt is here today for her PE Allergies codeine [Codeine] Allergy (Severe, Verified 09/30/23 09:42) DIFFICULTY BREATHING Penicillins Adverse Reaction (Intermediate, Verified 09/30/23 09:42) stomach upset semaglutide [From Ozempic] Adverse Reaction (Verified 09/30/23 09:42) Vomiting Medication List - Last Reconciled 03/31/23 by Lyndsay Yan MD adalimumab (Humira(CF) Pen) 40 mg (0.4 mL) subcut Q2W 56 days albuterol sulfate 90 mcg/actuation (ProAir HFA) 2 puffs inhalation Q6H PRN aspirin (Adult Low Dose Aspirin) 81 mg PO DAILY blood sugar diagnostic (Sponsiauch Ultra Test strips) 3x daily bumetanide 1 mg PO DAILY calcium carbonate (Calcium) 600 mg PO BID gabapentin (Neurontin) 300 mg PO BEDTIME insulin glargine U-300 conc (Toujeo Max U-300 SoloStar) 40 units (0.1333 mL) subcut BEDTIME insulin lispro (Humalog U-100 Insulin) up to 70 units daily via patch pump subcutaneously daily; lansoprazole (Prevacid 24Hr) 15 mg PO DAILY leflunomide 10 mg PO DAILY lisinopril 20 mg PO DAILY 30 days pen needle, diabetic Once a day pravastatin 40 mg PO BEDTIME sodium zirconium cyclosilicate (Lokelma) 5 grams PO Q OTHER DAY sub-q insulin device, 40 unit (V-GO 40 device) DIRECTED Tobacco use date assessed: 03/31/23 Fall risk assessment: No Falls in past year Last assessed Fall Risk: 03/31/23 Dental Screening Did you have a dental visit in the last 12 months?: Yes Did you have a dental problem in the last 6 months where you did not have access to dental care?: No Was dental information given to patient?: Patient has dentist HPI HPI Comments History of Present Illness Details 72 year old female with historyof seropo sitive RA (RF++ CCP++). on leflunomide 10 mg daily and Humira followed by Rheumatology; she has chronic left knee pain for which she follows with Orthopedics; sees Dr Santiago for stage 3 CKD and for her iron deficiency anemia,not requiring recent? iron infusions.? Followed by Dr. Puentes for MGUS, here today for physical exam. She has had a screening colonoscopy done 12/06/[address] Little with adenomatous polyp removed, presence of internal external hemorrhoids and diver ticulosis, repeat colonoscopy to be done in 2024. Declined getting any vaccinations at present time. ?? [facility] Medical History Leg pain, bilateral Herpes zoster vaccination declined COVID-19 vaccine dose declined Diabetic retinopathy Tubular adenoma of colon Osteopenia History of severe acute respiratory syndrome coronavirus 2 (SARS-CoV-2) disease Obesity due to excess calories 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 Postlaminectomy syndrome MGUS (monoclonal gammopathy of unknown significance) 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 mellitus) Diabetic retinopathy associated with type 2 diabetes mellitus CKD (chronic kidney disease) stage 3, 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 30-59 ml/min 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 GERD (gastroesophageal reflux disease) Type 2 diabetes mellitus with diabetic polyneuropathy Essential hypertension Dyslipidemia Surgical History Hx of colonoscopy Hx laparoscopic cholecystectomy Hx of tonsillectomy Hx of cataract surgery History of back surgery Family History Mother Diabetes CVD (cardiovascular disease) HTN (hypertension) Father Hodgkin disease Brother Hodgkin disease Sister Pancreatic cancer Sister Lung cancer Non-Hodgkin lymphoma Paternal Uncle Colon cancer Social History Household Members: None Housing: Condominium Alcohol intake: never Patient Tobacco Use Status: Former Tobacco user Tobacco use type: Cigarette Cigarettes Per Day: 50 Years Smoked: 20 e-Cigarette/Vaping Use: Never Used Advance Directives Date on File: 02/08/22 service: No Current occupational status: retired Cognitive needs: No Hearing needs: No Vision needs: Yes Questionnaire PHQ-9 Over the last 2 weeks, how often have you been bothered by any of the following problems? 1. Little interest or pleasure in doing things: not at all 2. Feeling down, depressed, or hopeless: not at all 3. Trouble falling or staying asleep, or sleeping too much: not at all 4. Feeling tired or having little energy: not at all 5. Poor appetite or overeating: not at all 6. Feeling bad about yourself - or that you are a failure or have let yourself or your family down: not at all 7. Trouble concentrating on things, such as reading the newspaper or watching television: not at all 8. Moving or speaking so slowly that other people could have noticed. Or the opposite - being so fidgety or restless that you have been moving around a lot more than usual: not at all 9. Thoughts that you would be better off or of hurting yourself in some way: not at all Total score: 0 Depression Screening Interpretation: Negative 48111 - PHQ-9 Billing: Yes Source: Developed by Drs. Bang Wilkerson, Ivett Sidhu, Alejandro Momin and colleagues, with an educational pretty from [employer]. Thrive Questionnaire Date Thrive assessed: 03/31/23 I am a: Patient What is your living situation today?: I have a steady place to live Within the past 12 months, did the food you bought not last and you didn't have the money to get more?: Never true Within the past 12 months, did you worry whether your food would run out before you got money to buy more?: Never true Do you have trouble paying for medicines?: No Do you have trouble getting transportation to medical appointments?: No Do you have trouble paying your heating and electricity bill?: No Do you have trouble taking care of your child, family member or friend?: No Do you have trouble with day-to-day activities such as bathing, preparing meals, shopping, managing finances, etc.?: No Are you currently unemployed and looking for a job?: No Are you interested in more education?: No AUDIT C Alcohol Use Questionnaire (AUDIT-C) 1. How often do you have a drink containing alcohol?: Never 3. How often do you have six or more drinks on one occasion?: Never Total Score: 0 JENY-7 AMB Questionnaire JENY-7 Date JENY - 7 assessed: 03/31/23 Feeling nervous, anxious, or on edge: 0 = Not at all Not being able to stop or control worryin = Not at all Worrying too much about different things: 0 = Not at all Trouble relaxin = Not at all Being so restless that it is hard to sit still: 0 = Not at all Becoming easily annoyed or irritable: 0 = Not at all Feeling afraid as if something awful might happen: 0 = Not at all Total JENY-7 score (0-4 normal; 5-9 mild; 10-14 moderate; 15-21 severe): 0 Source: Developed by Drs. Bang Wilkerson, Ivett Sidhu, Alejandro Momin and colleagues, with an educational pretty from [employer]. JENY-7 Assessment Billing JENY-7 Assessment Tool: JENY-7 Assessment 79017 Review of Systems Const Denies fatigue, Denies fever(s) and Denies headache(s) Eyes Details: sees Dr. Baptiste, has diabetic retinopathy, now being [facility] 6 months Denies change in vision ENT Denies dizziness, Denies headache(s), Denies nasal congestion, Denies nasal discharge and Denies sore throat Card Denies chest pain, Denies lightheadedness, Denies palpitations and Denies dyspnea Resp Denies chest congestion, Denies cough, Denies dyspnea and Denies wheezing GI Denies abdominal pain, Denies change in bowel habits and Denies heartburn Denies urinary frequency, Denies dysuria and Denies urinary urgency Musc Reports arthralgias, Denies joint swelling, Denies muscle weakness and Reports stiffness Skin/Breast Denies lesions and Denies rash Neuro Denies dizziness and Denies headache(s) Psych Reports no additional complaints Endo Denies fatigue, Denies polydipsia, Denies polyuria and Denies palpitations Eduadro/Lymph Reports no additional complaints Aller/Immun Denies seasonal rhinorrhea and Denies wheezing Physical exam (Primary Care) Vital Signs: Last Vital Signs Pulse 68 03/31/23 09:25 BP 128/62 03/31/23 09:25 Pulse Ox 96 03/31/23 09:25 Oxygen Delivery Method Room Air 03/31/23 09:25 BMI result Body Mass Index 39.1 Tobacco/Smoking Status: Tobacco use Status Tobacco use date assessed 03/31/23 03/31/23 09:31 Patient Tobacco Use Status Former Tobacco user 03/31/23 09:31 Tobacco use type Cigarette 03/31/23 09:31 e-Cigarette/Vaping Use Never Used 03/31/23 09:31 PHQ-9: PHQ-9 Score PHQ-9: Total score 0 10/28/23 15:00 Depression Screening Interpretation: Negative Thrive Assessment: Date of Thrive Assessment Date Thrive assessed 03/31/23 03/31/23 09:31 Const General: comfortable and no acute distress Nutritional Appearance: obese Orientation/consciousness: patient oriented x3 Limitations: no limitations HENMT Ears: external ears normal, TM's normal bilaterally and EAC's normal General nose exam: Normal external nose present Face and sinus: Yes face symmetric Mouth: Normal oral and palatal mucosa present, oropharynx normal and moist mucous membranes Eyes General: appearance normal, both eyes and all related structures Neck Neck: Yes full ROM, Yes no lymphadenopathy and Yes supple Chest Breast/axilla palpation: normal palpation of the breasts Resp Auscultation: clear to auscultation bilaterally Cardio Rate: regular rate Rhythm: regular rhythm Heart sounds: S1 normal heart sound present and S2 normal heart sound present GI Palpation (GI): Soft to palpation, nontender and no masses General: Yes no CVA tenderness Back/Spine/Pelvis Back: no CVA tenderness Skin General skin exam: no rashes or lesions noted Neuro General: patient oriented x3, gait normal, tone normal, moves all extremities, Normal light touch and pain sensation, no focal motor deficits and CN's II-XI intact bilaterally Extrem General: Yes full ROM, Yes no joint enlargement, Yes no calf tenderness and Yes normal gait Psych Appearance: grossly normal and well kempt Mental Status: mental status grossly normal Speech and movement: Normal speech and movement present Affect: normal affect Attitude: cooperative Thought process: Normal thought process present Results Reviewed Results Reviewed: .? Laboratory Tests 10/23/22 10/23/22 10:35 10:40 Glucose (Clinic) 107 Hgb A1c (Clinic) 6.5 H Name: Paola Vargas Age/Sex: 72/F : 1950 Unit#: [id number] Attend Dr: Lyndsay Yan MD Re03/26/23 Status: DEP REF Location: [facility] Disch: SPEC : [id number] GUI: 03/26/23 STATUS: COMP REQ : [id number] RECD: 03/26/23-[address]: Lyndsay Yan MD COMP: 03/26/23-1150 ENTERED: 03/26/23 [facility] DR: Ramirez Bill MD ORDERED: Creat, C Reactive Prot, Lipid Panel, Vitamin D 25-OH Test Result Flag Reference Creat 1.44 H 0.5-1.4 mg/dL EGFR 36 NOTE: For -Swazi individuals, multiply the result by 1.210. Chronic Kidney Disease: Estimated GFR < 60 mL/min/1.73m2 Severe Kidney Disease: Estimated GFR < 15 mL/min/1.73m2 CRP 0.51 H < or = 0.50 mg/dL Triglyceride 124 mg/dL Desirable Triglyceride: less than 150 mg/dL Borderline High Triglyceride 150-199 mg/dL High Triglyceride: 200-499 mg/dL Very High Triglyceride: greater than or equal to 5OO mg/dL Chol 165 mg/dL Desirable Cholesterol: less than 200 mg/dL Borderline High Cholesterol: 200-239 mg/dL High Cholesterol: greater than 239 mg/dL LDL Calculated 90 mg/dl Desirable LDL: less than 100 mg/dL Near Optimal/Above Optimal LDL: 110-129 mg/dL Borderline High LDL: 130-159 mg/dL High LDL: 160-189 mg/dL Very High LDL: greater than or equal to 190 mg/dL HDL 51 mg/dL Desirable HDL: greater than 40 mg/dL Note: This HDL assay may give artificially low results in patients with liver disease. Vit D 25-OH Tot 51.4 >30 ng/mL Health Based Reference Values* < 20 ng/mL Deficient 20-30 ng/mL Insufficient > 30 ng/mL Sufficient Name: Paola Vargas Age/Sex: 72/F : 1950 Unit#: [id number] Attend Dr: Lyndsay Yan MD Re03/26/23 Status: DEP REF Location: [facility] Disch: SPEC : [id number] GUI: 03/26/23 STATUS: COMP REQ : [id number] RECD: 03/26/[address] [facility] [address]: Ramirez Bill MD COMP: 03/26/23 ENTERED: 03/26/23 [facility] DR: Lyndsay Yan MD ORDERED: CBC Auto Diff Test Result Flag Reference WBC 6.7 4.8-10.8 X10*3/uL RBC 4.15 L 4.20-5.50 X10*6/uL HGB 11.8 L 12.0-16.0 g/dl HCT 36.6 L 37.0-47.0 % MCV 88.2 80.0-98.0 fL MCH 28.4 27.0-33.0 pg MCHC 32.2 31.0-35.0 g/dl RDW 13.4 11.0-16.0 % PLT 282 160-400 X10*3/uL MPV 11.0 9.4-12.3 fL Neut Pct Auto 49.8 45-73 % ImGran Pct Auto 0.3 0.0-0.4 % Lymp Pct Auto 28.3 20-40 % Carlton Pct Auto 13.7 H 2-11 % Eos Pct Auto 6.7 H 0-4 % Baso Pct Auto 1.2 0-2 % NRBC Pct Auto 0.0 0.0-0.2 /100WBC ANC Neut Abs # 3.3 2.0-8.3 x10*3/uL ImGran Abs Auto 0.02 0.00-0.03 X10*3/uL Lymph Abs Auto 1.9 1.2-4.9 X10*3/uL Carlton Abs Auto 0.9 0.1-1.2 X10*3/uL Eos Abs Auto 0.5 H 0.0-0.4 X10*3/uL Baso Abs Auto 0.1 0.0-0.2 X10*3/uL NRBC Abs Auto 0.000 0.0-0.012 X10*3/uL Assessment and Plan Assessment & Plan (1) Annual visit for general adult medical examination with abnormal findings: Code(s): Z00.01 - Encounter for general adult medical examination with abnormal findings Plan: Reviewed recent fasting lab results with patient.. Recommended dental visit every 6 months and regular yearly eye exams Take adequate calcium in diet and vitamin-D 3 at 2000 IU per cap once a day, in addition to weight-bearing exercises to help maintain good muscle tone and weight control. Instructed to do self-breast exam, and recommended to get yearly mammogram and has an ap pointment already scheduled, up-to-date with her screening colonoscopy, up-to-date with her bone density scan done earlier this year which showed presence of beginning osteopenia in left femoral neck. She declines getting any vaccinations. (2) COVID-19 vaccine dose declined: Code(s): Z28.21 - Immunization not carried out because of patient refusal (3) Herpes zoster vaccination declined: Code(s): Z28.21 - Immunization not carried out because of patient refusal (4) Diabetic retinopathy: Comment: [facility] [place] [facility] 6 months Code(s): E11.319 - Type 2 diabetes mellitus with unspecified diabetic retinopathy without macular edema (5) Osteopenia: Code(s): M85.80 - Other specified disorders of bone density and structure, unspecified site Plan: Had not updated via and bone density scan done earlier this year ordered by Rheumatology, which showed presence of beginning osteopenia in left femoral neck. Advised staying active doing regular weight-bearing exercise, continue taking vitamin-D 3 supplements and adequate calcium from dietary sources and supplements (6) Dyslipidemia: Code(s): E78.5 - Hyperlipidemia, unspecified Plan: Continue pravastatin 40 mg at bedtime, in addition to adhering to a low- cholesterol diet and staying active (7) CKD (chronic kidney disease) stage 2, GFR 60-89 ml/min: Code(s): N18.2 - Chronic kidney disease, stage 2 (mild) Plan: Elevation in creatinine likely also contributed by her lisinopril, will continue to monitor, avoidance of NSAIDs advised (8) Obesity due to excess calories: Code(s): E66.09 - Other obesity due to excess calories Qualifiers: Body mass index: BMI 40.0-44.9 Obesity classification: adult class 3 (BMI >= 40) Serious obesity comorbidity presence: with serious comorbidity Qualified Code(s): E66.01 - Morbid (severe) obesity due to excess calories; Z68.41 - Body mass index [BMI]40.0-44.9, adult Plan: Eat Mediterranean diet, limit foods high in fat, sugar, and calories, eat slowly, pay attention to portion sizes, plan your meals ahead of time, start regular physical activity 150 minutes of moderate intensity exercise or 90 minutes/week of vigorous exercise (9) Seropositive rheumatoid arthritis: Code(s): M05.9 - Rheumatoid arthritis with rheumatoid factor, unspecified Plan: Currently on meloxicam 15 mg 1 tablet daily, and Humira, followed by [facility] rheumatology clinic (10) Monoclonal gammopathy: Code(s): D47.2 - Monoclonal gammopathy Plan: Currently followed by oncology (11) Diabetic retinopathy associated with type 2 diabetes mellitus: Code(s): E11.319 - Type 2 diabetes mellitus with unspecified diabetic retinopathy without macular edema Plan: Followed by [facility] endocrine clinic, and followed by Dr. Ahsan marshall for yearly diabetes retinopathy screening (12) Type 2 diabetes mellitus with diabetic polyneuropathy: Code(s): E11.42 - Type 2 diabetes mellitus with diabetic polyneuropathy Qualifiers: Diabetes mellitus extermination supervisor insulin use: with extermination supervisor use Qualified Code(s): E11.42 - Type 2 diabetes mellitus with diabetic polyneuropathy; Z79.4 - skilled nursing (current) use of insulin Plan: Currently on insulin via V-go delivery device, and is on gabapentin 300 mg at bedtime, followed by Dr. Dave Medications: Refilled lisinopril 20 mg PO DAILY 90 tabs 3RF 30 days gabapentin (Neurontin) 300 mg PO BEDTIME 90 caps 1RF Discontinued blood-glucose sensor Discontinued Reason: Doctor's Order As directed change every 10 days 3 ea 5RF blood-glucose meter,continuous Discontinued Reason: Doctor's Order As directed 1 ea 0RF Coding Level of Care Code Est Pt Prev Care >65y(02972) Diagnoses Annual visit for general adult medical examination with abnormal findings Z00.01 COVID-19 vaccine dose declined Z28.21 Herpes zoster vaccination declined Z28.21 Diabetic retinopathy E11.319 Osteopenia M85.80 Dyslipidemia E78.5 CKD (chronic kidney disease) stage 2, GFR 60-89 ml/min N18.2 Class 3 severe obesity due to excess calories with serious comorbidity and body mass index (BMI) of 40.0 to 44.9 in adult E66.01; Z68.41 Body mass index: BMI 40.0-44.9 Obesity classification: adult class 3 (BMI >= 40) Serious obesity comorbidity presence: with serious comorbidity Seropositive rheumatoid arthritis M05.9 Monoclonal gammopathy D47.2 Diabetic retinopathy associated with type 2 diabetes mellitus E11.319 Type 2 diabetes mellitus with diabetic polyneuropathy, with long-term current use of insulin E11.42; Z79.4 Diabetes mellitus extermination supervisor insulin use: with half-way use Additional Codes JENY-7 Assessment Billing - JENY-7 Assessment Tool: JENY-7 Assessment 28053 ([id number])
[2023-03-31 09:25] VITALS: BP 128/62; PULSE 68; O2SAT 96; BMI 39.1
== END 2023-03-31 10:21 | disposition home or self-care (01) ==
PROVIDERS: Visit Provider Internal Medicine
DX: Z00.00 Encounter for general adult medical examination without abnormal findings (principal); E11.319 Type 2 diabetes mellitus with unspecified diabetic retinopathy without macular edema; E66.01 Morbid (severe) obesity due to excess calories; Z68.41 Body mass index [BMI] 40.0-44.9, adult; M05.9 Rheumatoid arthritis with rheumatoid factor, unspecified; E11.42 Type 2 diabetes mellitus with diabetic polyneuropathy; Z79.4 Long term (current) use of insulin; Z28.21 Immunization not carried out because of patient refusal; M85.80 Other specified disorders of bone density and structure, unspecified site; E78.5 Hyperlipidemia, unspecified; N18.2 Chronic kidney disease, stage 2 (mild); D47.2 Monoclonal gammopathy
CPT/HCPCS: 99397

== ENCOUNTER 2023-04-01 08:44 | Outpatient (REF) | payer MEDICARE, SELFPAY ==
--- NOTE | ~2023-04-01 | US_ITS ---
EXAMINATION: US ABDOMEN COMPLETE CLINICAL INFORMATION: Epigastric abdominal pain. Status post cholecystectomy. COMPARISON: Ultrasound abdomen 09/07/2019. Renal ultrasound 01/07/2017. TECHNIQUE: Real-time imaging of the abdominal viscera. FINDINGS: PANCREAS: Normal. ABDOMINAL AORTA: Atherosclerotic changes seen in the aorta without aneurysm although the distal abdominal aorta could not be visualized. INFERIOR VENA CAVA: Visualized portions are normal. LIVER: The liver is enlarged measuring over 18 cm in greatest length with increased echogenicity consistent with hepatic steatosis. The liver contour is normal. No focal hepatic lesion. There is no intrahepatic biliary duct dilatation seen. GALLBLADDER: Surgically absent. COMMON BILE DUCT: Normal in caliber measuring 0.7 cm in diameter. RIGHT KIDNEY: No hydronephrosis or renal calculi. The kidney measures 12.8 cm in maximum dimension. A benign 2.0 cm Bosniak class I renal cyst is noted which requires no additional imaging or followup. No solid renal masses are seen. LEFT KIDNEY: No hydronephrosis or renal calculi. The kidney measures 10.2 cm in maximum dimension. There is an echogenic 1.4 x 1.1 x 1.4 cm hypoechoic well circumscribed mass seen in the mid kidney with peripheral vascularity noted. This is new and was not seen at the time of the 09/07/2019 abdominal ultrasound. SPLEEN: Normal. The spleen measures 10.6 cm in maximum dimension. FREE FLUID: None. US/US abdomen complete IMPRESSION: 1. Enlarged fatty liver. 2. New 1.4 cm left renal mass. Dedicated precontrast and postcontrast renal CT scan is recommended for further evaluation.
== END 2023-04-01 08:45 | disposition home or self-care (01) ==
LOC: HO.HMGCX 08:44
PROVIDERS: PCP Internal Medicine; Visit Provider Internal Medicine
DX: R10.13 Epigastric pain (principal)
CPT/HCPCS: 76700

== ENCOUNTER → 2023-04-02 10:32 | Outpatient (BNVA) | payer MEDICARE, SELFPAY | PROVIDERS: PCP Internal Medicine; Visit Provider Registered Nurse Diabetes Educator | DX: E11.42 Type 2 diabetes mellitus with diabetic polyneuropathy (principal); E11.3599 Type 2 diabetes mellitus with proliferative diabetic retinopathy without macular edema, unspecified eye; Z79.4 Long term (current) use of insulin | CPT/HCPCS: 82947; 83036; 99211; 99212 ==

== ENCOUNTER 2023-04-13 09:42 | Outpatient (REF) | payer MEDICARE, SELFPAY | END 2023-04-13 09:43 | disposition home or self-care (01) | LOC: HO.HMGCLDS 09:42 | PROVIDERS: PCP Internal Medicine; Visit Provider Internal Medicine Endocrinology, Diabetes & Metabolism | DX: E11.42 Type 2 diabetes mellitus with diabetic polyneuropathy (principal) | CPT/HCPCS: 36415; 80048 ==

== ENCOUNTER 2023-04-13 11:06 | Outpatient (REF) | payer MEDICARE, SELFPAY | END 2023-04-13 11:07 | disposition home or self-care (01) | LOC: HO.HMGCLDS 11:06 | PROVIDERS: PCP Internal Medicine; Visit Provider Internal Medicine | DX: N28.89 Other specified disorders of kidney and ureter (principal); R93.422 Abnormal radiologic findings on diagnostic imaging of left kidney | CPT/HCPCS: 36415; 80051; 82565; 84520; 85025 ==

== ENCOUNTER 2023-04-15 13:10 | Outpatient (REF) | payer MEDICARE, SELFPAY | END 2023-04-15 13:11 | disposition home or self-care (01) | LOC: HO.CT 13:10 | PROVIDERS: PCP Internal Medicine; Visit Provider Internal Medicine | DX: N28.89 Other specified disorders of kidney and ureter (principal); R93.422 Abnormal radiologic findings on diagnostic imaging of left kidney | CPT/HCPCS: 74178; Q9967 ==

== ENCOUNTER 2023-05-01 13:58 | Outpatient (AMB) | payer MEDICARE, SELFPAY ==
--- NOTE | 2023-05-01 14:31 | A.OFFVIS_ITS ---
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: No Accompanied by: Self / Same As Patient Allergies codeine [Codeine] Allergy (Severe, Verified 05/01/23 15:15) DIFFICULTY BREATHING Penicillins Adverse Reaction (Intermediate, Verified 05/01/23 15:15) stomach upset semaglutide [From Ozempic] Adverse Reaction (Verified 05/01/23 15:15) Vomiting Medication List - Last Reconciled 05/01/23 by MANE Simpson-CHUY adalimumab (Humira(CF) Pen) 40 mg (0.4 mL) subcut Q2W 56 days albuterol sulfate 90 mcg/actuation (ProAir HFA) 2 puffs inhalation Q6H PRN blood sugar diagnostic (SongAfterTouch Ultra Test strips) 3x daily blood-glucose meter,continuous (DexYOHO G7 Product Technician) As directed blood-glucose sensor (Dexcom G7 Sensor device) As directed change every 10 days bumetanide 1 mg PO DAILY calcium carbonate (Calcium) 600 mg PO BID empagliflozin (Jardiance) 10 mg PO DAILY gabapentin (Neurontin) 300 mg PO BEDTIME insulin glargine U-300 conc (Toujeo Max U-300 SoloStar) 40 units (0.1333 mL) subcut BEDTIME insulin lispro (Humalog U-100 Insulin) up to 70 units daily via patch pump subcutaneously daily; lansoprazole (Prevacid 24Hr) 15 mg PO DAILY leflunomide 10 mg PO DAILY lisinopril 20 mg PO DAILY 30 days pen needle, diabetic Once a day pen needle, diabetic (Easy Comfort Pen [place]) As directed once a day pravastatin 40 mg PO BEDTIME sodium zirconium cyclosilicate (Lokelma) 5 grams PO Q OTHER DAY sub-q insulin device, 40 unit (V-GO 40 device) DIRECTED HPI HPI Comments History of Present Illness Details Paola is a pleseant 72 year old female patient of Dr. Yan. She has a PMH CKD stage 3, diabetic retinopathy, dyslipidemia, essential hypertenstion, IDDM, obesity, osteopenia, postlaminectomy syndrome, spinal stenosis of lumbar region with radiculopathy, and spondylosis of lumbar spine. She presents to the office today as a new patient for an abnormal CT. 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 She states her ultrasound showed an abnormality on her left kidney thus a CT abdomen and pelvis was ordered for further assessment and evaluation. These results were reviewed with the patient today. Right kidney with 2.1 x 1.9 cm low-attenuation lesion measuring 55 Hounsfield units on noncontrast imaging without enhancement on postcontrast imaging. Corresponds with the cyst seen on the renal ultrasound suggesting proteinaceous/hemorrhagic cyst. There is a smaller subcentimeter hypodensity in the medial lower pole of the right kidney consistent with a simple cyst. There is no right-sided hydronephrosis or renal calculi. Normal renal cortical thickness. The left kidney is relatively atrophic relative to the right with renal cortical thinning. There is bulky atherosclrotic plaque at the origin of the left renal artery. There is perinephric stranding around the left kidney. Corresponding with the lesion seen on the recent ultrasound in the upper pole of the left kidney there is a suspected mixed solid and cystic mass with possible internal enhancement in the solid component, the mass measures approximately 1.7 x 1.4 x 2.3 cm. No left-sided renal calculi. No hydronephr osis. The bladder unremarkable. When asked patient denies any urinary issues or concerns. She discusses how all forms of cancers run in her family. When asked she denies denies urinary urgency, urinary frequency, incontinence, nocturia, hematuria, dysuria, foul smelling urine, changes to urinary stream, flank pain, fever, and or chills. She is happy with her current voiding parameters. In office urinalysis results reviewed with the patient today. Discussed renal biopsy with cryoablation for left-sided renal lesion. Discuss risks and benefits of surgical procedure verses surveillance monitoring. At this time patient wishes to move forward with renal biopsy and cryoablation. 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 MGUS (monoclonal gammopathy of unknown significance) Obesity due to excess calories Osteopenia Postlaminectomy syndrome Spinal stenosis of lumbar region with radiculopathy Spondylosis of lumbar spine Tubular adenoma of colon Type 2 diabetes mellitus with diabetic polyneuropathy Surgical History History of back surgery Hx laparoscopic cholecystectomy Hx of cataract surgery Hx of colonoscopy Hx of tonsillectomy Family History Mother Diabetes HTN (hypertension) CVD (cardiovascular disease) Father Hodgkin disease Social History Household Members: None Housing: Condominium Alcohol intake: never Patient Tobacco Use Status: Former Tobacco user Tobacco use type: Cigarette Cigarettes Per Day: 50 Years Smoked: 20 e-Cigarette/Vaping Use: Never Used Advance Directives Date on File: 02/08/22 service: No Current occupational status: retired Cognitive needs: No Hearing needs: No Vision needs: Yes Review of Systems Const Reports as per HPI Eyes Reports no additional complaints ENT Reports no additional complaints Card Reports as per HPI Resp Reports no additional complaints GI Reports as per HPI Reports as per HPI Musc Reports as per HPI Neuro Reports as per HPI Psych Reports no additional complaints Endo Reports as per HPI Eduardo/Lymph Reports no additional complaints Aller/Immun Reports no additional complaints Physical Exam Const General: cooperative, healthy appearing, comfortable, no acute distress, well developed, alert and awake Nutritional Appearance: overweight Orientation/consciousness: patient oriented x3 Limitations: no limitations HEENT Head: Yes normal to inspection, Yes normocephalic and Yes atraumatic Ears: hearing grossly normal bilaterally Eyes General: appearance normal, both eyes and all related structures Neck Neck: Yes normal visual inspection and Yes trachea midline Chest Chest palpation & inspection: normal inspection of the chest Resp Effort & Inspection: normal respiratory effort and able to speak in complete sentences Cardio Rate: regular rate GI Inspection: Yes normal to inspection General: Yes no CVA tenderness Back/Spine/Pelvis Back: no CVA tenderness Skin General skin exam: no rashes or lesions noted Neuro General: patient oriented x3 Extrem General: Yes normal to inspection Psych Appearance: grossly normal and well kempt Mental Status: mental status grossly normal Speech and movement: Normal speech and movement present and Clear speech present Affect: normal affect Attitude: cooperative Thought process: Normal thought process present Thought content: Normal thought content present Insight: Good insight present (Psych) Judgement: Good judgement present (Psych) Results AMB Urinalysis, Automated UA Leukoctes 0 Mary/uL Last Edit by [employer] on 05/01/23 14:45 UA Nitrite Last Edit by [employer] on 05/01/23 14:45 UA Urobilinogen 0.2 mg/dL Last Edit by [employer] on 05/01/23 14:45 UA Protein 0 mg/dL Last Edit by [employer] on 05/01/23 14:45 UA pH 6.0 Last Edit by [employer] on 05/01/23 14:45 UA Blood 0 Rajinder/uL Last Edit by [employer] on 05/01/23 14:45 UA Specific [place] 1.010 Last Edit by [employer] on 05/01/23 14:45 UA Ketone Negative Last Edit by [employer] on 05/01/23 14:45 UA Bilirubin 0 mg/dL Last Edit by [employer] on 05/01/23 14:45 UA Glucose 250 mg/dL Last Edit by [employer] on 05/01/23 14:45 Results Reviewed Results Reviewed: Laboratory Last Values Urine pH (Auto) 6.0 05/01/23 14:33 Specific [place] (Auto) 1.010 05/01/23 14:33 Urine Protein (Auto) 0 mg/dL 05/01/23 14:33 Glucose (UA)(Auto) 250 mg/dL 05/01/23 14:33 Urine Ketones (Auto) Negative 05/01/23 14:33 Urine Blood (Auto) 0 Rajinder/uL 05/01/23 14:33 Urine Bilirubin (Auto) 0 mg/dL 05/01/23 14:33 Urine Urobilinogen (Auto) 0.2 mg/dL 05/01/23 14:33 Leukocyte Esterase (Auto) 0 Mary/uL 05/01/23 14:33 Date of Service: 04/15/23 Procedure(s): CT abdomen pelvis wo/w IV con EXAMINATION: CT ABDOMEN AND PELVIS WITHOUT AND WITH CONTRAST? FINDINGS: LUNG BASES: The visualized lung bases are unremarkable. Dense mitral valve calcifications which are incompletely visualized. LIVER, GALLBLADDER, AND BILIARY TREE: The liver is normal in size, shape, and attenuation. No focal hepatic lesion or biliary ductal dilatation is present. Status post cholecystectomy.? PANCREAS: Unremarkable.? SPLEEN: Unremarkable.? ADRENAL GLANDS: Unremarkable.? KIDNEYS AND URETERS: In the lower pole of the right kidney, there is a 2.1 x 1.9 cm low-attenuation lesion measuring 55 Hounsfield units on noncontrast imaging without enhancement on postcontrast imaging. Corresponds with the cyst seen on the renal ultrasound suggesting proteinaceous/hemorrhagic cyst. There is a smaller subcentimeter hypodensity in the medial lower pole of the right kidney consistent with a simple cyst. There is no right-sided hydronephrosis or renal calculi. Normal renal cortical thickness. The left kidney is relatively atrophic relative to the right with renal cortical thinning. There is bulky atherosclerotic plaque at the origin of the left renal artery. There is perinephric stranding around the left kidney. Corresponding with the lesion seen on the recent ultrasound in the upper pole of the left kidney there is a suspected mixed solid and cystic mass with possible internal enhancement in the solid component, the mass measures approximately 1.7 x 1.4 x 2.3 cm. No left-sided renal calculi. No hydronephrosis. BLADDER: Unremarkable.? GASTROINTESTINAL TRACT: The small and large bowel are unremarkable. The appendix is unremarkable.? ABDOMINAL WALL: No significant hernia. Subcutaneous soft tissue densities in the right and left flanks may reflect injection granulomas, correlate with history.? LYMPH NODES: Normal. VASCULAR: There is bulky atherosclerotic calcification throughout the abdominal aorta without aneurysm. PELVIC VISCERA: The uterus and adnexa are unremarkable.? OSSEOUS STRUCTURES: There are degenerative changes with significant degenerative disc disease at L4-L5 and L5-S1. Grade 1 retrolisthesis of L5 on S1.? IMPRESSION: 1. Corresponding with the lesion seen on the recent ultrasound in the upper pole of the left kidney there is a suspected mixed solid and cystic mass with possible internal enhancement in the solid component, the mass measures approximately 1.7 x 1.4 x 2.3 cm. The left kidney is relatively atrophic relative to the right with renal cortical thinning. Recommend urology consultation. Renal mass protocol MRI may help to better characterize this lesion, differential considerations would include renal cell carcinoma. 2. There is a 2.1 x 1.9 cm low-attenuation lesion in the lower pole of the right kidney corresponding with the cyst seen on the renal ultrasound suggesting a proteinaceous/hemorrhagic cyst. 3. Status post cholecystectomy. 4. Dense mitral valve calcifications. Assessment & Plan Assessment & Plan (1) Renal lesion: Code(s): N28.9 - Disorder of kidney and ureter, unspecified (2) Left kidney mass: Code(s): N28.89 - Other specified disorders of kidney and ureter Plan: Risks, benefits and alternatives to therapy were discussed. These include but are not limited to infection, bleeding, damage to local organs and tissues, need for further interventions. ? Anesthetic risks regarding cardiac arrhythmia, blood clots, and potential mortality were discussed. The patient understands the typical recovery time and the outpatient nature of the procedure. After consideration of these risks the patient gives full inform ed consent and they wish to move ahead with the procedure. Plan In office urinalysis results reviewed with the patient today; as noted above. CT results reviewed with the patient today; as noted above. Patient denies any urinary issues or concerns. Discussed left-sided renal biopsy with cryoablation versus surveillance monitoring. Discussed risks and benefits of surgical intervention at length Will schedule for left-sided renal biopsy with cryoablation Follow-up 1-2 weeks status post procedure; or sooner with any issues, concerns, and or questions Orders: Orders CT guided ablation renal 05/01/23 N28.89 - Other specified disorders of kidney and ureter, N28.9 - Disorder of kidney and ureter, unspecified AMB Urinalysis Automated 05/01/23 Z13.9 - Encounter for screening, unspecified Patient Instructions: The patient had an opportunity to ask questions regarding the treatment plan. All questions were answered. Physical exam, labs, and imaging were discussed and reviewed in detail. As well as risks, benefits, and discussion of treatment choices. No major barriers to understanding were identified. The patient expressed understanding and agreement with the above treatment plan. The patient was made aware they should contact our office by phone for worsening of their current condition, the appearance of new symptoms, or with any questions or concerns. Compliance is encouraged with any medications and follow up testing that is ordered. It is a privilege to be allowed the opportunity to participate in? your urological care.? Again, if you have any questions or concerns If you have any questions or concerns please do not hesitate to contact me. The office is [phone]. This note is constructed using voice recognition software. While every effort has been made to ensure accuracy human resources analyst errors may have been included. Yours sincerely, MANE Simpson-CHUY Coding Level of Care Code New Pt Level 4 (67083) Diagnoses Renal lesion N28.9 Left kidney mass N28.89
== END 2023-05-01 15:07 | disposition home or self-care (01) ==
PROVIDERS: PCP Internal Medicine; Visit Provider Nurse Practitioner Family
DX: N28.9 Disorder of kidney and ureter, unspecified (principal); N28.89 Other specified disorders of kidney and ureter
CPT/HCPCS: 99204

== ENCOUNTER → 2023-05-01 13:58 | Outpatient (BNVA) | payer MEDICARE, SELFPAY | PROVIDERS: PCP Internal Medicine; Visit Provider Nurse Practitioner Family | DX: N28.9 Disorder of kidney and ureter, unspecified (principal); N28.89 Other specified disorders of kidney and ureter | CPT/HCPCS: 99202 ==

== ENCOUNTER 2023-05-05 09:21 | Outpatient (AMB) | payer MEDICARE, SELFPAY ==
--- NOTE | 2023-05-05 09:57 | A.OFFVIS_ITS ---
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 Allergies codeine [Codeine] Allergy (Severe, Verified 05/01/23 15:15) DIFFICULTY BREATHING Penicillins Adverse Reaction (Intermediate, Verified 05/01/23 15:15) stomach upset semaglutide [From Ozempic] Adverse Reaction (Verified 05/01/23 15:15) Vomiting HPI Comprehensive Diabetes Asmnt Most Recent Diabetes Results: Cholesterol 165 mg/dL 03/26/23 HDL Cholesterol 51 mg/dL 03/26/23 Triglycerides 124 mg/dL 03/26/23 Creatinine 1.46 mg/dL (0.5-1.4) H 04/13/23 Blood Urea Nitrogen 25 mg/dL (9-16) H 04/13/23 Sodium 140 mmol/L (135-145) 04/13/23 Potassium 5.0 mmol/L (3.3-5.1) 04/13/23 Chloride 109 mmol/L (96-108) H 04/13/23 Carbon Dioxide 22 mmol/L (22-29) 04/13/23 Calcium 9.9 mg/dL (8.4-10.2) 04/13/23 AST 17 U/L (5-31) 03/26/23 ALT 13 U/L (0-31) 03/26/23 Total Protein 7.1 g/dL (6.5-8.0) 03/26/23 Albumin 4.0 g/dL (3.5-5.0) 03/26/23 [facility] Medical History CKD (chronic kidney disease) stage 3, GFR 30-59 ml/min Diabetic retinopathy Diabetic retinopathy associated with type 2 diabetes mellitus Dyslipidemia Essential hypertension GERD (gastroesophageal reflux disease) History of severe acute respiratory syndrome coronavirus 2 (SARS-CoV-2) disease 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 mellitus) 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 MGUS (monoclonal gammopathy of unknown significance) Obesity due to excess calories Osteopenia Postlaminectomy syndrome Spinal stenosis of lumbar region with radiculopathy Spondylosis of lumbar spine Tubular adenoma of colon Type 2 diabetes mellitus with diabetic polyneuropathy Surgical History History of back surgery Hx laparoscopic cholecystectomy Hx of cataract surgery Hx of colonoscopy Hx of tonsillectomy Family History Mother Diabetes HTN (hypertension) CVD (cardiovascular disease) Father Hodgkin disease Social History Household Members: None Housing: Condominium Alcohol intake: never Patient Tobacco Use Status: Former Tobacco user Tobacco use type: Cigarette Cigarettes Per Day: 50 Years Smoked: 20 e-Cigarette/Vaping Use: Never Used Advance Directives Date on File: 02/08/22 service: No Current occupational status: retired Cognitive needs: No Hearing needs: No Vision needs: Yes Assessment & Plan Assessment & Plan (1) Type 2 diabetes mellitus with diabetic polyneuropathy: Code(s): E11.42 - Type 2 diabetes mellitus with diabetic polyneuropathy 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 Qualified Code(s): E11.42 - Type 2 diabetes mellitus with diabetic polyneuropathy; Z79.4 - [facility] (current) use of insulin Plan: CGM Info Instructed Pt on what CGM can and can't do CGM Can: Give Pt minute by minute reading of glucose levels Displays glucose trend arrows that represents the direction glucose levels are fluctuating Give insight on decisions about how to dose insulin CGM cannot: Improve glucose control on its own Completely eliminate the need for all finger sticks Make dosing decision for you CGM is the reading of glucose in the interstitial fluid not actual blood glucose, finger sticks are still necessary when Pt's symptom?s do not match sensor reading and if sensors prompts Pt to do a fingerstick Pt has the Dexcom G7 Inserted sensor in the back of Pt's R arm Pt left visit with sensor in warmup Reviewed delay of CGM from fingersticks Reminded pt that if symptoms do not match sensor still needs to check fingersticks. Patient Instructions: Patient instruction: CGM provides information on blood glucose control throughout the day, including hyperglycemia and hypoglycemia. ? Continue to monitor blood glucose as instructed. Follow nutrition guidelines provided. Report any discomfort promptly to health care provider. ?Stay well-hydrated. You can bathe ,shower, swim and exerce while wearing the glucose sensor. Do not submerge glucose sensor in water for more than 30 minutes. Remove sensor for MRI or CAT scan. Avoid Xray machine in airports - remove sensor or request wand Coding Level of Care Code Est Pt Level 1 (95212) Diagnoses Type 2 diabetes mellitus with diabetic polyneuropathy E11.42; Z79.4 Diabetes mellitus senior living insulin use: with senior living use
== END 2023-05-05 10:01 | disposition home or self-care (01) ==
PROVIDERS: PCP Internal Medicine; Visit Provider Registered Nurse Diabetes Educator
DX: E11.42 Type 2 diabetes mellitus with diabetic polyneuropathy (principal); Z79.4 Long term (current) use of insulin

== ENCOUNTER → 2023-05-05 09:21 | Outpatient (BNVA) | payer MEDICARE, SELFPAY | PROVIDERS: PCP Internal Medicine; Visit Provider Registered Nurse Diabetes Educator | DX: E11.22 Type 2 diabetes mellitus with diabetic chronic kidney disease (principal); E11.42 Type 2 diabetes mellitus with diabetic polyneuropathy; E11.319 Type 2 diabetes mellitus with unspecified diabetic retinopathy without macular edema; M85.80 Other specified disorders of bone density and structure, unspecified site; Z79.4 Long term (current) use of insulin | CPT/HCPCS: 99211 ==

== ENCOUNTER 2023-05-18 08:31 | Outpatient (REF) | payer MEDICARE, SELFPAY ==
[2023-05-18 11:30] LABS: MANUAL DIFF FLAG NO
[2023-05-18 11:46] LABS: Basophils Absolute Auto 0.1 X10*3/uL (0.0-0.2); Basophils Percent Auto 1.3 % (0-2); Eosinophils Absolute Auto 0.3 X10*3/uL (0.0-0.4); Eosinophils Percent Auto 4.2 % (0-4); Hematocrit 39.6 % (37.0-47.0); Hemoglobin 12.4 g/dl (12.0-16.0); Imm Gran Abs Auto 0.04 X10*3/uL (0.00-0.03); Imm Gran Pct Auto 0.5 % (0.0-0.4); Lymphocytes Percent Auto 25.7 % (20-40); Mean Corpuscular HGB Conc 31.3 g/dl (31.0-35.0); Mean Corpuscular Hemoglobin 27.7 pg (27.0-33.0); Mean Corpuscular Volume 88.6 fL (80.0-98.0); Mean Platelet Volume 11.2 fL (9.4-12.3); Monocytes Percent Auto 12.4 % (2-11); Neutrophils Absolute Auto 4.3 x10*3/uL (2.0-8.3); Neutrophils Percent Auto 55.9 % (45-73); Platelet Count 283 X10*3/uL (160-400); Red Blood Count 4.47 X10*6/uL (4.20-5.50); Red Cell Distribution Width 13.5 % (11.0-16.0); White Blood Count 7.6 X10*3/uL (4.8-10.8)
[2023-05-18 12:02] LABS: Alanine Aminotransferase 15 U/L (0-31); Aspartate Amino Transferase 19 U/L (5-31)
== END 2023-05-18 08:32 | disposition home or self-care (01) ==
LOC: HO.HMGCLDS 08:31
PROVIDERS: PCP Internal Medicine; Visit Provider Internal Medicine Rheumatology
DX: Z79.899 Other long term (current) drug therapy (principal)
CPT/HCPCS: 36415; 84450; 84460; 85025

== ENCOUNTER 2023-05-21 10:21 | Outpatient (REF) | payer MEDICARE, SELFPAY ==
--- NOTE | ~2023-05-21 | MM_ITS ---
EXAMINATION: MM SCREENING DIGITAL BREAST TOMOSYNTHESIS, BILATERAL CLINICAL INFORMATION: Screening. Asymptomatic. COMPARISON: Mammography: This study is compared with prior exams dating back to 2018. TECHNIQUE: Digital breast tomosynthesis is performed in both the craniocaudal and mediolateral oblique views along with computer-aided detection (CAD). Synthesized 2D images are generated from the tomosynthesis. FINDINGS: There are scattered areas of fibroglandular density (ACR BI-RADS breast composition Category b). There are no significant masses, abnormal calcifications, or other abnormalities. Scattered benign calcifications are present in each breast. MM/MM tomosynthesis screening BI IMPRESSION: No mammographic evidence of malignancy. ASSESSMENT: BI-RADS BI-RADS 2 - Benign Findings RECOMMENDATION: Routine annual mammography screening. 1 year F/U This examination should not preclude the clinical evaluation of a suspicious palpable abnormality. This patient's information was entered into a reminder system with a target due date for their next mammogram.
== END 2023-05-21 10:22 | disposition home or self-care (01) ==
LOC: HO.MAMMO 10:21
PROVIDERS: PCP Internal Medicine; Visit Provider Internal Medicine
DX: Z12.31 Encounter for screening mammogram for malignant neoplasm of breast (principal)
CPT/HCPCS: 77063; 77067

== ENCOUNTER → 2023-05-21 11:00 | Outpatient (BNV) | payer MEDICARE, SELFPAY | PROVIDERS: PCP Internal Medicine; Visit Provider Radiology Diagnostic Radiology | DX: Z12.31 Encounter for screening mammogram for malignant neoplasm of breast (principal) | CPT/HCPCS: 77063; 77067 ==

== ENCOUNTER 2023-05-22 09:10 | Outpatient (AMB) | payer MEDICARE, SELFPAY ==
--- NOTE | 2023-05-22 09:18 | MHC.AMDMED ---
Intake Intake Visit Reasons: DM Allergies codeine [Codeine] Allergy (Severe, Verified 05/01/23 15:15) DIFFICULTY BREATHING Penicillins Adverse Reaction (Intermediate, Verified 05/01/23 15:15) stomach upset semaglutide [From Ozempic] Adverse Reaction (Verified 05/01/23 15:15) Vomiting HPI Comprehensive Diabetes Asmnt Most Recent Diabetes Results: Creatinine 1.46 mg/dL (0.5-1.4) H 04/13/23 Blood Urea Nitrogen 25 mg/dL (9-16) H 04/13/23 Sodium 140 mmol/L (135-145) 04/13/23 Potassium 5.0 mmol/L (3.3-5.1) 04/13/23 Chloride 109 mmol/L (96-108) H 04/13/23 Carbon Dioxide 22 mmol/L (22-29) 04/13/23 Calcium 9.9 mg/dL (8.4-10.2) 04/13/23 AST 19 U/L (5-31) 05/18/23 ALT 15 U/L (0-31) 05/18/23 [facility] Medical History CKD (chronic kidney disease) stage 3, GFR 30-59 ml/min Diabetic retinopathy Diabetic retinopathy associated with type 2 diabetes mellitus Dyslipidemia Essential hypertension GERD (gastroesophageal reflux disease) History of severe acute respiratory syndrome coronavirus 2 (SARS-CoV-2) disease 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 mellitus) [facility] (current) use of insulin MGUS (monoclonal gammopathy of unknown significance) Obesity due to excess calories Osteopenia Postlaminectomy syndrome Spinal stenosis of lumbar region with radiculopathy Spondylosis of lumbar spine Tubular adenoma of colon Type 2 diabetes mellitus with diabetic polyneuropathy Surgical History History of back surgery Hx laparoscopic cholecystectomy Hx of cataract surgery Hx of colonoscopy Hx of tonsillectomy Family History Mother Diabetes HTN (hypertension) CVD (cardiovascular disease) Father Hodgkin disease Social History Household Members: None Housing: Condominium Alcohol intake: never Patient Tobacco Use Status: Former Tobacco user Tobacco use type: Cigarette Cigarettes Per Day: 50 Years Smoked: 20 e-Cigarette/Vaping Use: Never Used Advance Directives Date on File: 02/08/22 service: No Current occupational status: retired Cognitive needs: No Hearing needs: No Vision needs: Yes Assessment & Plan Assessment & Plan (1) Type 2 diabetes mellitus with diabetic polyneuropathy: Code(s): E11.42 - Type 2 diabetes mellitus with diabetic polyneuropathy Qualifiers: 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 0% Hyperglycemia:?11% Time in Range:?89% Average glucose for the last 2 weeks? 140 mg/dL Reviewed patient's sensor data, at this time patient is very well controlled She is using Vgo 40, Toujeo max 40 units daily Jardiance 10 mg daily Patient reports she had 1 episode of hypoglycemia, she used glucose tabs to treat Patient reports acute glucose tabs by her bed and carry them in her purse Reviewed rule of 15s Reviewed how to interpret trend arrows Reminded patient that to check finger sticks if symptoms do not match sensor reading. Discussed lag time between finger stick and sensor data.? Patient able to insert sensor independently at home without issue.? Patient Instructions: Patient instruction: CGM provides information on blood glucose control throughout the day, including hyperglycemia and hypoglycemia. ? Continue to monitor blood glucose as instructed. Follow nutrition guidelines provided. Report any discomfort promptly to health care provider. ?Stay well-hydrated. You can bathe ,shower, swim and exerce while wearing the glucose sensor. Do not submerge glucose sensor in water for more than 30 minutes. Remove sensor for MRI or CAT scan. 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
== END 2023-05-22 10:11 | disposition home or self-care (01) ==
PROVIDERS: PCP Internal Medicine; Visit Provider Registered Nurse Diabetes Educator
DX: E11.42 Type 2 diabetes mellitus with diabetic polyneuropathy (principal); Z79.4 Long term (current) use of insulin

== ENCOUNTER → 2023-05-22 09:10 | Outpatient (BNVA) | payer MEDICARE, SELFPAY | PROVIDERS: PCP Internal Medicine; Visit Provider Registered Nurse Diabetes Educator | DX: E11.22 Type 2 diabetes mellitus with diabetic chronic kidney disease (principal); E11.42 Type 2 diabetes mellitus with diabetic polyneuropathy; E11.319 Type 2 diabetes mellitus with unspecified diabetic retinopathy without macular edema; N18.30 Chronic kidney disease, stage 3 unspecified; Z79.4 Long term (current) use of insulin | CPT/HCPCS: 99211 ==

== ENCOUNTER 2023-05-26 09:28 | Outpatient (AMB) | payer MEDICARE, SELFPAY ==
[2023-05-26 09:43] VITALS: BP 130/74; PULSE 75; O2SAT 96
--- NOTE | 2023-05-26 09:43 | MHC.OFFVIS ---
Intake Vital Signs 05/26/23 09:43 Height 5 ft 2 in BP 130/74 Blood Pressure Location Rt brachial Position Sitting Pulse 75 Pulse Source Pulse Oximeter Pulse Oximetry (%) 96 Oxygen Delivery Method Room Air Intake Visit Reasons: rheumatoid arthritis Allergies codeine [Codeine] Allergy (Severe, Verified 05/26/23 09:45) DIFFICULTY BREATHING Penicillins Adverse Reaction (Intermediate, Verified 05/26/23 09:45) stomach upset semaglutide [From Ozempic] Adverse Reaction (Verified 05/26/23 09:45) Vomiting Medication List - Last Reconciled 05/26/23 by Ramirez Bill MD adalimumab (Humira(CF) Pen) 40 mg (0.4 mL) subcut Q2W 56 days albuterol sulfate 90 mcg/actuation (ProAir HFA) 2 puffs inhalation Q6H PRN blood sugar diagnostic (PawSpotTouch Ultra Test strips) 3x daily blood-glucose meter,continuous (DexFuture Fleet G7 Monitoring Analyst) As directed blood-glucose sensor (DexFuture Fleet G7 Sensor device) As directed change every 10 days bumetanide 1 mg PO DAILY calcium carbonate (Calcium) 600 mg PO BID empagliflozin (Jardiance) 10 mg PO DAILY gabapentin (Neurontin) 300 mg PO BEDTIME insulin glargine U-300 conc (Toujeo Max U-300 SoloStar) 40 units (0.1333 mL) subcut BEDTIME insulin lispro Inject up with 70 units subcutaneously by patch pump daily subcutaneously daily; lansoprazole (Prevacid 24Hr) 15 mg PO DAILY leflunomide 10 mg PO DAILY lisinopril 20 mg PO DAILY 30 days pen needle, diabetic Once a day pen needle, diabetic (Easy Comfort Pen [place]) As directed once a day pravastatin 40 mg PO BEDTIME sodium zirconium cyclosilicate (Lokelma) 5 grams PO Q OTHER DAY sub-q insulin device, 40 unit (V-GO 40 device) DIRECTED HPI HPI Comments History of Present Illness Details The patient returns for evaluation of her rheumatoid arthritis. She had last seen Laura back in February. She remains on Humira 40 mg every 2 weeks and leflunomide 10 mg daily. There is occasional loose stool but otherwise her medications seem to be tolerated. She does get some pain in the fingers at times. Mostly this is at the base of the thumbs. There is also some knee pain when she tries to walk up or down stairs. She is followed in renal for some CKD. NSAIDs of course are avoided. [facility] Medical History CKD (chronic kidney disease) stage 3, GFR 30-59 ml/min Diabetic retinopathy Diabetic retinopathy associated with type 2 diabetes mellitus Dyslipidemia Essential hypertension GERD (gastroesophageal reflux disease) History of severe acute respiratory syndrome coronavirus 2 (SARS-CoV-2) disease 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 mellitus) longterm (current) use of insulin MGUS (monoclonal gammopathy of unknown significance) Obesity due to excess calories Osteopenia Postlaminectomy syndrome Spinal stenosis of lumbar region with radiculopathy Spondylosis of lumbar spine Tubular adenoma of colon Type 2 diabetes mellitus with diabetic polyneuropathy Surgical History History of back surgery Hx laparoscopic cholecystectomy Hx of cataract surgery Hx of colonoscopy Hx of tonsillectomy Family History Mother Diabetes HTN (hypertension) CVD (cardiovascular disease) Father Hodgkin disease Social History Household Members: None Housing: Condominium Alcohol intake: never Patient Tobacco Use Status: Former Tobacco user Tobacco use type: Cigarette Cigarettes Per Day: 50 Years Smoked: 20 e-Cigarette/Vaping Use: Never Used Advance Directives Date on File: 02/08/22 service: No Current occupational status: retired Cognitive needs: No Hearing needs: No Vision needs: Yes Review of Systems Const Details: Negative for appetite change, weight change, fever, chills, malaise and fatigue Eyes Details: Negative for vision change, dry eyes,headaches and dizziness Card Details: Negative chest pain, edema and syncope Resp Details: Negative for SOB, cough and wheezing GI Details: Occasional loose stool. Negative indigestion/heartburn, nausea, abdominal pain, bowel changes, constipation and bloody stool. Endo Details: Negative for polyuria and polydypsia Eduardo/Lymph Details: Negative for excessive bruising or bleeding. Physical Exam Vital Signs: Last Vital Signs Pulse 75 05/26/23 09:43 BP 130/74 05/26/23 09:43 Pulse Ox 96 05/26/23 09:43 Oxygen Delivery Method Room Air 05/26/23 09:43 APPEARANCE: Patient in no acute distress JOINT EXAM: ??Cervical Spine:? Full range of motion without pain; no tenderness. Thoracic Spine:? No tenderness on palpation. Lumbar Spine: Alignment normal.? Full range of motion with slight pain at the extremes. No tenderness.? Small well-healed scar noted in the center of lumbar spine. Hands: LEFT:? Normal pain-free range of motion with some soft tissue swelling in the MCP joints with some slight tenderness in the 1st 2 MCPs. There is also tenderness over the CMC joint at the thumb. ? RIGHT:? Normal pain free range of motion with mild swelling and tenderness in the 1st 3 MCP joints and at the base of the thumb. Slight limited ability to make a full fist, not able to fully flex the 3rd PIP,? per patient this a chronic change. No te the nderness along the flexor tendons or triggering noted. Wrists: Right: Mild pain with flexion extension at 60 degrees and some slight tenderness but no swelling. Left: Mild pain with flexion extension at 60 degrees with some slight swelling and tenderness. Elbows: Normal pain-free range of motion without tenderness, swelling, increased warmth or erythema. Shoulders:?? Full range of motion without pain. No tenderness, weakness, swelling, increased warmth or erythema. Hip bursa:? No tenderness. Knees::? Normal pain-free range of motion with mild patellofemoral crepitus. No effusion, swelling, increased warmth or erythema. No effusion or crepitation noted. ? n Ankles:? Normal pain-free range of motion without tenderness, swelling, increased warmth or erythema. Feet: LEFT:? Normal pain-free range of motion without tenderness, swelling, increased warmth or erythema. ? RIGHT:? Normal pain-free range of motion without tenderness, swelling, increased warmth erythema. Results Reviewed Results Reviewed: Laboratory Tests 03/26/23 04/13/23 05/18/23 07:19 11:12 08:43 WBC 7.6 Hgb 12.4 Hct 39.6 ESR 38 H Creatinine 1.46 H AST ALT 05/18/23 08:43 WBC Hgb Hct ESR Creatinine AST 19 ALT 15 Assessment & Plan Assessment & Plan (1) longterm use of drug: Code(s): Z79.899 - Other continuous churn buttermaker (current) drug therapy (2) Seropositive rheumatoid arthritis: Code(s): M05.9 - Rheumatoid arthritis with rheumatoid factor, unspecified Plan Rheumatoid arthritis with good control of synovitis for the most part with current regimen. I think there is some OA in the thumb CMC joints.The blood work looks good so we will continue treatment as above. We will aim for a follow-up visit at 3 months with lab before that visit. Orders: Orders Erythrocyte Sedimentation Rate Today M05.9 - Rheumatoid arthritis with rheumatoid factor, unspecified C Reactive Protein Today M05.9 - Rheumatoid arthritis with rheumatoid factor, unspecified Alanine Aminotransferase Today M05.9 - Rheumatoid arthritis with rheumatoid factor, unspecified, Z79.899 - Other continuous churn buttermaker (current) drug therapy Aspartate Amino Transferase Today M05.9 - Rheumatoid arthritis with rheumatoid factor, unspecified, Z79.899 - Other continuous churn buttermaker (current) drug therapy Creatinine Today M05.9 - Rheumatoid arthritis with rheumatoid factor, unspecified, Z79.899 - Other residential (current) drug therapy Complete Blood Count Auto Diff Today M05.9 - Rheumatoid arthritis with rheumatoid factor, unspecified, Z79.899 - Other residential (current) drug therapy Medications: Refilled leflunomide 10 mg PO DAILY 90 tabs 1RF M05.9 - Rheumatoid arthritis with rheumatoid factor, unspecified Coding Level of Care Code Est Pt Level 3 (28621) Diagnoses longterm use of drug Z79.899 Seropositive rheumatoid arthritis M05.9
== END 2023-05-26 10:10 | disposition home or self-care (01) ==
PROVIDERS: PCP Internal Medicine; Visit Provider Internal Medicine Rheumatology
DX: M05.89 Other rheumatoid arthritis with rheumatoid factor of multiple sites (principal); Z79.899 Other long term (current) drug therapy
CPT/HCPCS: 99213

== ENCOUNTER → 2023-05-26 09:28 | Outpatient (BNVA) | payer MEDICARE, SELFPAY | PROVIDERS: PCP Internal Medicine; Visit Provider Internal Medicine Rheumatology | DX: M05.9 Rheumatoid arthritis with rheumatoid factor, unspecified (principal); Z79.899 Other long term (current) drug therapy | CPT/HCPCS: 99212 ==

== ENCOUNTER 2023-05-27 11:48 | Day surgery (SDC) | payer MEDICARE, SELFPAY ==
--- NOTE | ~2023-05-27 | CT_ITS ---
PROCEDURE: CT GUIDED BIOPSY, KIDNEY See combined CT renal biopsy and cryoablation report from the same day.
--- NOTE | ~2023-05-27 | CT_ITS ---
EXAMINATION: CT-guided renal ablation CLINICAL INFORMATION: Left renal mass COMPARISON: Previous CT of the abdomen and pelvis April 2023 and abdominal ultrasound March 2023 TECHNIQUE: Procedure and risks and benefits including bleeding infection injury to the kidney injury to the adjacent organs and inability to do the procedure were discussed with the patient and informed consent was obtained. Anesthesia was provided by the anesthesia department. The patient was positioned in the right lateral/slightly supine position. Axial images through the kidneys were performed. The left flank was prepped and draped in the usual sterile fashion. Using CT guidance and a coaxial system, access to the mass in the upper pole of the left kidney was obtained. 2 20-gauge core biopsies were obtained. Subsequently, using CT guidance, 2 17-gauge 17.5 centimeter in length Ice mohini cryoablation probes were positioned in the left renal mass. 2 freeze thaw cycles of 10 minute freeze followed by 6 minute thaw were performed. Intermittent CT imaging was performed during the first freeze thaw cycle. Cryoablation probes were removed. Postprocedure imaging was performed. DLP 117 4 mgy/cm FINDINGS: There is a 2 cm mass in the upper pole of the left kidney that was targeted for cryoablation. Images demonstrate adequate needle placement in the lesion for biopsy. Images demonstrate adequate placement of cryoablation probes in the lesion and ice ball obscuring the targeted lesion. Postprocedure images demonstrate no hemorrhage. CT/CT guided ablation renal IMPRESSION: CT-guided left renal mass biopsy and cryoablation.
[2023-05-27 12:34] LABS: MANUAL DIFF FLAG NO
[2023-05-27 12:37] LABS: Basophils Absolute Auto 0.1 X10*3/uL (0.0-0.2); Basophils Percent Auto 0.9 % (0-2); Eosinophils Absolute Auto 0.3 X10*3/uL (0.0-0.4); Eosinophils Percent Auto 3.4 % (0-4); Hematocrit 40.8 % (37.0-47.0); Imm Gran Abs Auto 0.03 X10*3/uL (0.00-0.03); Imm Gran Pct Auto 0.4 % (0.0-0.4); Lymphocytes Absolute Auto 1.7 X10*3/uL (1.2-4.9); Lymphocytes Percent Auto 22.5 % (20-40); Mean Corpuscular HGB Conc 31.9 g/dl (31.0-35.0); Mean Corpuscular Hemoglobin 27.8 pg (27.0-33.0); Mean Corpuscular Volume 87.2 fL (80.0-98.0); Mean Platelet Volume 10.3 fL (9.4-12.3); Monocytes Absolute Auto 0.7 X10*3/uL (0.1-1.2); Monocytes Percent Auto 9.9 % (2-11); Neutrophils Absolute Auto 4.6 x10*3/uL (2.0-8.3); Neutrophils Percent Auto 62.9 % (45-73); Platelet Count 257 X10*3/uL (160-400); Red Blood Count 4.68 X10*6/uL (4.20-5.50); White Blood Count 7.4 X10*3/uL (4.8-10.8)
[2023-05-27 12:42] LABS: INTERNATIONAL NORM RATIO 0.9 (0.9-1.1); Prothrombin Time 11.2 SEC (11.1-13.3)
[2023-05-27 12:44] LABS: Partial Thromboplastin Time 34.5 SEC (26.0-36.4)
[2023-05-27 12:51] LABS: Anion Gap 14 (12-20); Blood Urea Nitrogen 37 mg/dL (9-16); Carbon Dioxide 25 mmol/L (22-29); Chloride 109 mmol/L (96-108); Estimated Glomerular Filt Rate 33; Sodium 143 mmol/L (135-145)
[2023-05-27 12:58] LABS: Glucose, Whole Blood 122 mg/dL (60-115)
--- NOTE | 2023-05-27 13:15 | HO.ANESPROP2 ---
Documented by User: Lisa Coe NP 05/26/23 10:42 HPI - Anesthesia Eval Consult details Narrative: 72yo F for Left Kidney Cryo-Ablation PMFSH Active Problems Active Problems: All Active Problems (Updated 05/01/23 @ 14:59 by Soni Victoria [facility]) Renal lesion (Acute) Left kidney mass (Acute) Diabetic retinopathy (Acute) Osteopenia (Acute) Dyslipidemia (Acute) CKD (chronic kidney disease) stage 2, GFR 60-89 ml/min (Acute) Patellofemoral arthritis of left knee (Acute) Obesity due to excess calories (Acute) Spondylosis of lumbar spine (Acute) Spinal stenosis of lumbar region with radiculopathy (Acute) Postlaminectomy syndrome (Acute) Monoclonal gammopathy (Acute) Seropositive rheumatoid arthritis (Acute) Hypogammaglobulinemia (Acute) Diabetic retinopathy associated with type 2 diabetes mellitus (Acute) USP (current) use of insulin (Acute) Type 2 diabetes mellitus with diabetic polyneuropathy (Acute) Past Medical History Medical History CKD (chronic kidney disease) stage 3, GFR 30-59 ml/min Diabetic retinopathy Diabetic retinopathy associated with type 2 diabetes mellitus Dyslipidemia Essential hypertension GERD (gastroesophageal reflux disease) History of severe acute respiratory syndrome coronavirus 2 (SARS-CoV-2) disease 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 MGUS (monoclonal gammopathy of unknown significance) Obesity due to excess calories Osteopenia Postlaminectomy syndrome Spinal stenosis of lumbar region with radiculopathy Spondylosis of lumbar spine Tubular adenoma of colon Type 2 diabetes mellitus with diabetic polyneuropathy Family History Family History Mother Diabetes HTN (hypertension) CVD (cardiovascular disease) Father Hodgkin disease Surgical History Surgical History History of back surgery Hx laparoscopic cholecystectomy Hx of cataract surgery Hx of colonoscopy Hx of tonsillectomy Social History Social History Household Members: None Housing: Condominium Alcohol intake: never Patient Tobacco Use Status: Former Tobacco user Tobacco use type: Cigarette Cigarettes Per Day: 50 Years Smoked: 20 e-Cigarette/Vaping Use: Never Used Advance Directives: No Advance Directives Information Provided: Yes Advance Directives Date on File: 02/08/22 service: No Current occupational status: retired Cognitive needs: No Hearing needs: No Vision needs: Yes Meds Allergies Allergy/AdvReac Type Severity Reaction Status Date / Time codeine [Codeine] Allergy Severe DIFFICULTY Verified 05/26/23 09:45 BREATHING Penicillins AdvReac Intermediate stomach Verified 05/26/23 09:45 upset semaglutide [From Ozempic] AdvReac Vomiting Verified 05/26/23 09:45 Home Medications Medication Instructions Recorded Confirmed Last Taken Type calcium carbonate 600 mg calcium 600 mg PO BID 08/10/20 05/26/23 07/09/22 History (1,500 mg) tablet (Calcium) lansoprazole 15 mg capsule,delayed 15 mg PO DAILY 10/30/22 05/26/23 05/27/23 History release (Prevacid 24Hr) sodium zirconium cyclosilicate 5 5 g PO Q OTHER DAY 03/31/23 05/26/23 Unknown History gram oral powder packet (Lokelma) Exam Exam Date and Time: May 26, 2023 1040 Pertinent Lab Results Pertinent Lab Results: Laboratory Tests 04/13/23 05/18/23 11:12 08:43 WBC 7.6 Hgb 12.4 Hct 39.6 Plt Count 283 Sodium 140 Potassium 5.0 Chloride 109 H Carbon Dioxide 22 BUN 25 H Creatinine 1.46 H Narrative Narrative: EKG 08/2022 Vent. Rate : 064 BPM ? ? Atrial Rate : 064 BPM ?? P-R Int : 178 ms? QRS Dur : 074 ms ? ? QT Int : 422 ms ? ? ? P-R-T Axes : 064 007 037 degrees ?? QTc Int : 435 ms ? Normal sinus rhythm Normal ECG When compared with ECG of 13-JUL-2022 10:03, T wave amplitude has decreased in Lateral leads Assessment and Plan Assessment Anesthesia Assessment: Chart Reviewed Documented by User: Aziza Means DO 05/27/23 13:24 [facility] Past Medical History Medical History CKD (chronic kidney disease) stage 3, GFR 30-59 ml/min Diabetic retinopathy Diabetic retinopathy associated with type 2 diabetes mellitus Dyslipidemia Essential hypertension GERD (gastroesophageal reflux disease) History of severe acute respiratory syndrome coronavirus 2 (SARS-CoV-2) disease 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 mellitus) USP (current) use of insulin MGUS (monoclonal gammopathy of unknown significance) Obesity due to excess calories Osteopenia Postlaminectomy syndrome Spinal stenosis of lumbar region with radiculopathy Spondylosis of lumbar spine Tubular adenoma of colon Type 2 diabetes mellitus with diabetic polyneuropathy Functional capacity: independent ambulation Family History Family History Mother Diabetes HTN (hypertension) CVD (cardiovascular disease) Father Hodgkin disease Family history of problems with anesthesia: No Surgical History Surgical History History of back surgery Hx laparoscopic cholecystectomy Hx of cataract surgery Hx of colonoscopy Hx of tonsillectomy History of Problems with Anesthesia: No Social History Social History Household Members: None Housing: Condominium Alcohol intake: never Patient Tobacco Use Status: Former Tobacco user Tobacco use type: Cigarette Cigarettes Per Day: 50 Years Smoked: 20 e-Cigarette/Vaping Use: Never Used Advance Directives: No Advance Directives Information Provided: Yes Advance Directives Date on File: 02/08/22 service: No Current occupational status: retired Cognitive needs: No Hearing needs: No Vision needs: Yes Meds Allergies Allergy/AdvReac Type Severity Reaction Status Date / Time codeine [Codeine] Allergy Severe DIFFICULTY Verified 05/26/23 09:45 BREATHING Penicillins AdvReac Intermediate stomach Verified 05/26/23 09:45 upset semaglutide [From Ozempic] AdvReac Vomiting Verified 05/26/23 09:45 Home Medications Medication Instructions Recorded Confirmed Last Taken Type calcium carbonate 600 mg calcium 600 mg PO BID 08/10/20 05/26/23 07/09/22 History (1,500 mg) tablet (Calcium) lansoprazole 15 mg capsule,delayed 15 mg PO DAILY 10/30/22 05/26/23 05/27/23 History release (Prevacid 24Hr) sodium zirconium cyclosilicate 5 5 g PO Q OTHER DAY 03/31/23 05/26/23 Unknown History gram oral powder packet (Lokelma) Exam Exam Date and Time: May 27, 2023 1315 Airway Mallampati Class: II TM Dist: <=3cm Neck ROM: Limited Partial: Upper Loose/Missing/Broken Teeth: No Heart: S1S2 Lungs: CTAB Assessment and Plan Assessment Anesthesia Assessment: Anesthesia Plan Discussed and Chart Reviewed Final Anesthetic Review Family History of Problems with Anesthesia: No History of Problems with Anesthesia: No NPO: Yes ASA Class: III Final Preanesthetic Review: No Changes in Pt Med Stat, Meds/Allgs Chart Reviewed, Consent Obtained/Reviewed and Anes Risks/Benef Reviewed Patient Risk: Intermediate Procedure Risk: Low Anesthetic Plan Anesthetic Plan: MAC: and Agree w/ Assess. and Plan Disposition: Standard PACU
[2023-05-27 16:55] VITALS: BP 128/47; PULSE 60; RESP 15; TEMP 36.2; O2SAT 100
[2023-05-27 17:10] VITALS: BP 164/65; PULSE 66; RESP 18; O2SAT 97
[2023-05-27 17:25] VITALS: BP 172/69; PULSE 59; RESP 18; O2SAT 95
[2023-05-27 17:40] VITALS: BP 155/48; PULSE 63; RESP 18; O2SAT 96
[2023-05-27 17:47] VITALS: BP 159/47; PULSE 62; RESP 18; TEMP 36.3; O2SAT 97
== END 2023-05-27 18:15 | disposition home or self-care (01) ==
PROVIDERS: PCP Internal Medicine; Visit Provider Radiology Diagnostic Radiology
DX: C65.2 Malignant neoplasm of left renal pelvis (principal); N28.1 Cyst of kidney, acquired; E11.22 Type 2 diabetes mellitus with diabetic chronic kidney disease; I12.9 Hypertensive chronic kidney disease with stage 1 through stage 4 chronic kidney disease, or unspecified chronic kidney disease; N18.30 Chronic kidney disease, stage 3 unspecified; E11.319 Type 2 diabetes mellitus with unspecified diabetic retinopathy without macular edema; D47.2 Monoclonal gammopathy; E78.5 Hyperlipidemia, unspecified; E66.09 Other obesity due to excess calories; Z79.4 Long term (current) use of insulin; Z79.620 Long term (current) use of immunosuppressive biologic; Z79.899 Other long term (current) drug therapy; Z88.8 Allergy status to other drugs, medicaments and biological substances; Z90.49 Acquired absence of other specified parts of digestive tract; Z87.891 Personal history of nicotine dependence; Z86.16 Personal history of COVID-19
CPT/HCPCS: 36415; 50200; 50593; 77012; 77013; 80051; 82565; 82947; 84520; 85025; 85610; 85730; 88305; C2618; J0131; J0690; J1100; J2371; J2405; J3010

== ENCOUNTER → 2023-05-27 13:38 | Outpatient (BNV) | payer MEDICARE, SELFPAY | PROVIDERS: PCP Internal Medicine; Visit Provider Radiology Diagnostic Radiology | DX: N28.89 Other specified disorders of kidney and ureter (principal) | CPT/HCPCS: 50200; 50593; 77012; 77013 ==

== ENCOUNTER 2023-06-10 11:29 | Outpatient (AMB) | payer MEDICARE, SELFPAY ==
--- NOTE | 2023-06-10 11:45 | A.OFFVIS_ITS ---
Intake Intake Visit Reasons: Cryo Results (05/27/23) Intake Note: Patient is present for post op renal biopsy w/cryo ablation Urology Medication: none Blood Thinner: none Soaping Department Supervisor Required: No Accompanied by: Self / Same As Patient Allergies codeine [Codeine] Allergy (Severe, Verified 06/10/23 13:18) DIFFICULTY BREATHING Penicillins Adverse Reaction (Intermediate, Verified 06/10/23 13:18) stomach upset semaglutide [From Ozempic] Adverse Reaction (Verified 06/10/23 13:18) Vomiting Medication List - Last Reconciled 06/10/23 by YANETH Simpson adalimumab (Humira(CF) Pen) 40 mg (0.4 mL) subcut Q2W 56 days albuterol sulfate 90 mcg/actuation (ProAir HFA) 2 puffs inhalation Q6H PRN blood sugar diagnostic ([employer] Ultra Test strips) 3x daily blood-glucose meter,continuous ([employer] G7 Chairman And Chief Executive Officer) As directed blood-glucose sensor (Dexcom G7 Sensor device) As directed change every 10 days bumetanide 1 mg PO DAILY calcium carbonate (Calcium) 600 mg PO BID empagliflozin (Jardiance) 10 mg PO DAILY gabapentin (Neurontin) 300 mg PO BEDTIME insulin glargine U-300 conc (Toujeo Max U-300 SoloStar) 40 units (0.1333 mL) subcut BEDTIME insulin lispro Inject up with 70 units subcutaneously by patch pump daily subcutaneously daily; lansoprazole (Prevacid 24Hr) 15 mg PO DAILY leflunomide 10 mg PO DAILY lisinopril 20 mg PO DAILY 30 days pen needle, diabetic Once a day pen needle, diabetic (Easy Comfort Pen [place]) As directed once a day pravastatin 40 mg PO BEDTIME sodium zirconium cyclosilicate (Lokelma) 5 grams PO Q OTHER DAY sub-q insulin device, 40 unit (V-GO 40 device) DIRECTED HPI HPI Comments History of Present Illness Details Paola is a pleseant 72 year old female patient of Dr. Yan. She has a PMH CKD stage 3, diabetic retinopathy, dyslipidemia, essential hypertenstion, IDDM, obesity, osteopenia, postlaminectomy syndrome, spinal stenosis of lumbar region with radiculopathy, and spondylosis of lumbar spine. She presents to the office today for follow-up. Of note, patient was previously seen approximately 1 month ago at which time recommendations were made for renal biopsy and cryoablation for left renal lesion noted on abdominal ultrasound and CT . Patient is status post renal biopsy and cryoablation on 05/27. Pathology results reviewed with the patient today at length. Clear cell renal cell carcinoma, Ren[place] grade 3. When asked patient reports to be doing and feeling well. She denies having had any issues status post procedure. Discussed serial surveillance imaging. Patient discusses her brother who just got diagnosed with Red syndrome just weeks ago. When asked she denies urinary urgency, urinary frequency, incontinence, nocturia, hematuria, dysuria, foul smelling urine, changes to urinary stream, flank pain, fever, and or chills. She is happy with her current voiding parameters. In office urinalysis results reviewed with the patient today. She otherwise offers no issues or concerns at this time. [facility] Medical History CKD (chronic kidney disease) stage 3, GFR 30-59 ml/min Diabetic retinopathy Diabetic retinopathy associated with type 2 diabetes mellitus Dyslipidemia Essential hypertension GERD (gastroesophageal reflux disease) History of severe acute respiratory syndrome coronavirus 2 (SARS-CoV-2) disease 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 mellitus) care home (current) use of insulin MGUS (monoclonal gammopathy of unknown significance) Obesity due to excess calories Osteopenia Postlaminectomy syndrome Spinal stenosis of lumbar region with radiculopathy Spondylosis of lumbar spine Tubular adenoma of colon Type 2 diabetes mellitus with diabetic polyneuropathy Surgical History History of back surgery Hx laparoscopic cholecystectomy Hx of cataract surgery Hx of colonoscopy Hx of tonsillectomy Family History Mother Diabetes HTN (hypertension) CVD (cardiovascular disease) Father Hodgkin disease Social History Household Members: None Housing: Condominium Alcohol intake: never Patient Tobacco Use Status: Former Tobacco user Tobacco use type: Cigarette Cigarettes Per Day: 50 Years Smoked: 20 e-Cigarette/Vaping Use: Never Used Advance Directives Date on File: 02/08/22 service: No Current occupational status: retired Cognitive needs: No Hearing needs: No Vision needs: Yes Review of Systems Const Reports as per [facility] Eyes Reports no additional complaints ENT Reports no additional complaints Card Reports as per [facility] Resp Reports no additional complaints GI Reports as per [facility] Reports as per [facility] Musc Reports as per [facility] Neuro Reports as per [facility] Psych Reports no additional complaints Endo Reports as per [facility] Eduardo/Lymph Reports no additional complaints Aller/Immun Reports no additional complaints Physical Exam Const General: cooperative, healthy appearing, comfortable, no acute distress, well developed, alert and awake Nutritional Appearance: overweight Orientation/consciousness: patient oriented x3 Limitations: no limitations HEENT Head: Yes normal to inspection, Yes normocephalic and Yes atraumatic Ears: hearing grossly normal bilaterally Eyes General: appearance normal, both eyes and all related structures Neck Neck: Yes normal visual inspection and Yes trachea midline Chest Chest palpation & inspection: normal inspection of the chest Resp Effort & Inspection: normal respiratory effort and able to speak in complete sentences Cardio Rate: regular rate GI Inspection: Yes normal to inspection General: Yes no CVA tenderness Back/Spine/Pelvis Back: no CVA tenderness Skin General skin exam: no rashes or lesions noted Neuro General: patient oriented x3 Extrem General: Yes normal to inspection Psych Appearance: grossly normal and well kempt Mental Status: mental status grossly normal Speech and movement: Normal speech and movement present and Clear speech present Affect: normal affect Attitude: cooperative Thought process: Normal thought process present Thought content: Normal thought content present Insight: Good insight present (Psych) Judgement: Good judgement present (Psych) Results AMB Urinalysis, Automated UA Leukoctes 0 Mary/uL Last Edit by TransferGo on 06/10/23 11:58 UA Nitrite Last Edit by TransferGo on 06/10/23 11:58 UA Urobilinogen 0.2 mg/dL Last Edit by TransferGo on 06/10/23 11:58 UA Protein 0 mg/dL Last Edit by TransferGo on 06/10/23 11:58 UA pH 6.0 Last Edit by TransferGo on 06/10/23 11:58 UA Blood 0 Rajinder/uL Last Edit by TransferGo on 06/10/23 11:58 UA Specific [place] 1.010 Last Edit by TransferGo on 06/10/23 11:58 UA Ketone Negative Last Edit by Amber Parnell on 06/10/23 11:58 UA Bilirubin 0 mg/dL Last Edit by Amber Parnell on 06/10/23 11:58 UA Glucose 500 mg/dL Last Edit by Amber Parnell on 06/10/23 11:58 Results Reviewed Results Reviewed: Laboratory Last Values Urine pH (Auto) 6.0 06/10/23 11:50 Specific [place] (Auto) 1.010 06/10/23 11:50 Urine Protein (Auto) 0 mg/dL 06/10/23 11:50 Glucose (UA)(Auto) 500 mg/dL 06/10/23 11:50 Urine Ketones (Auto) Negative 06/10/23 11:50 Urine Blood (Auto) 0 Rajinder/uL 06/10/23 11:50 Urine Bilirubin (Auto) 0 mg/dL 06/10/23 11:50 Urine Urobilinogen (Auto) 0.2 mg/dL 06/10/23 11:50 Leukocyte Esterase (Auto) 0 Mary/uL 06/10/23 11:50 Diagnosis: Kidney, left upper pole mass, biopsy:??Clear cell renal cell carcinoma, [place] grade 3. Assessment & Plan Assessment & Plan (1) Clear cell renal cell carcinoma: Code(s): C64.9 - Malignant neoplasm of unspecified kidney, except renal pelvis Plan In office urinalysis results reviewed with the patient today; as noted above. Recent pathology results reviewed with the patient today; as noted above. Discussed at length clear cell renal cell carcinoma Discussed interval surveillance monitoring. Patient denies any urological issues or concerns at this time. She reports to be happy with current voiding parameters. All questions were answered. Will refer to Oncology for further assessment evaluation as patients brother recently diagnosed with Red syndrome Will obtain CT abdomen and pelvis with and without contrast as well as CT of the chest with and without contrast in 6 months Will obtain BUN and creatinine in 6 months Follow-up in 6 months with imaging and labs to be completed prior; or sooner with any issues, concerns, and or questions. Orders: Orders CT abdomen pelvis wo/w IV con 6 Months C64.9 - Malignant neoplasm of unspecified kidney, except renal pelvis CT chest wo/w IV con 6 Months C64.9 - Malignant neoplasm of unspecified kidney, except renal pelvis AMB Urinalysis Automated Today N28.89 - Other specified disorders of kidney and ureter, Z13.9 - Encounter for screening, unspecified Referrals Hematology & Oncology Referral C64.9 - Malignant neoplasm of unspecified kidney, except renal pelvis Patient Instructions: The patient had an opportunity to ask questions regarding the treatment plan. All questions were answered. Physical exam, labs, and imaging were discussed and reviewed in detail. As well as risks, benefits, and discussion of treatment choices. No major barriers to understanding were identified. The patient expressed understanding and agreement with the above treatment plan. The patient was made aware they should contact our office by phone for worsening of their current condition, the appearance of new symptoms, or with any questions or concerns. Compliance is encouraged with any medications and follow up testing that is ordered. It is a privilege to be allowed the opportunity to participate in? your urological care.? Again, if you have any questions or concerns If you have any questions or concerns please do not hesitate to contact me. The office is [phone]. This note is constructed using voice recognition software. While every effort has been made to ensure accuracy licensed sales producer errors may have been included. Yours sincerely, YANETH Simpson Coding Level of Care Code Est Pt Level 3 (98766) Diagnoses Clear cell renal cell carcinoma C64.9
== END 2023-06-10 12:09 | disposition home or self-care (01) ==
PROVIDERS: PCP Internal Medicine; Visit Provider Nurse Practitioner Family
DX: C64.9 Malignant neoplasm of unspecified kidney, except renal pelvis (principal)
CPT/HCPCS: 99213

== ENCOUNTER → 2023-06-10 11:29 | Outpatient (BNVA) | payer MEDICARE, SELFPAY | PROVIDERS: PCP Internal Medicine; Visit Provider Nurse Practitioner Family | DX: C64.2 Malignant neoplasm of left kidney, except renal pelvis (principal) | CPT/HCPCS: 81003; 99212 ==

== ENCOUNTER 2023-08-04 09:21 | Outpatient (AMB) | payer MEDICARE, SELFPAY ==
--- NOTE | 2023-08-04 09:23 | A.OFFVIS_ITS ---
Intake Vital Signs 08/04/23 09:36 Height 5 ft 2 in Weight 212 lb 15.465 oz BMI 38.9 BP 158/64 H Blood Pressure Location Lt brachial Position Sitting Pulse 67 Pulse Source Pulse Oximeter Intake Visit Reasons: f/u Type 2 DM Intake Note: Patient present today to follow up on Type 2 Diabetes Mellitus. Last Diabetic Eye exam: 2021 Last Podiatry Visit: 06/2023 Random Glucose: 110 mg/dl HgA1C: 6.5% Internet Marketing Assistant Required: No Accompanied by: Self / Same As Patient Allergies codeine [Codeine] Allergy (Severe, Verified 08/04/23 09:45) DIFFICULTY BREATHING Penicillins Adverse Reaction (Intermediate, Verified 08/04/23 09:45) stomach upset semaglutide [From Ozempic] Adverse Reaction (Verified 08/04/23 09:45) Vomiting HPI HPI Comments History of Present Illness Details Patient is a 72 yo female with DM type 2 diagnosed in her early 40s who presents for continued management of diabetes. T Past medical history: DM2, HTN, HLD, rheumatoid arthritis, , GERD. Micro and macrovascular complications: neuropathy, proliferative retinopathy, nephropathy but no macrovascular disease. Diabetes medications: V-Go 40 and Toujeo 44 units , V-go 40, 3 clicks w/ breakfast, 2 for lunch and 9 for dinner, 1 click for snacks, Jardiance 10 mg Not taking Januvia 50 mg daily. Pt intolerant of Tanzeum and Victoza due to abdominal pain. Having some yeast infections on Jardiance Hypoglycemia: very rare Hyperglycemia: +urinary frequency (on diuretic), +nocturia, denies polydypsia Blood glucose monitoring: Dexcom download shows she is using the sensor 93% of the time. Average glucose is 144 with G mi of 6.8% and standard deviation of 36. 86% range but 14% hyperglycemia and less than 1% hypoglycemic. Pharmacy Service Associate - CDE education: over a year ago [place]: goes every 8 weeks Dental exam: last month. Ophthalmology evaluation: needs to follow-up this Winter - proliferative diabetic retinopathy, goes twice a year for evaluation Other specialists: team cdl driver - Dr. Santiago, [place]. 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 MGUS (monoclonal gammopathy of unknown significance) Obesity due to excess calories Osteopenia Postlaminectomy syndrome Spinal stenosis of lumbar region with radiculopathy Spondylosis of lumbar spine Tubular adenoma of colon Type 2 diabetes mellitus with diabetic polyneuropathy Surgical History Hx of colonoscopy Hx laparoscopic cholecystectomy Hx of tonsillectomy Hx of cataract surgery History of back surgery Family History Mother Diabetes CVD (cardiovascular disease) HTN (hypertension) Father Hodgkin disease Brother Hodgkin disease Sister Pancreatic cancer Sister Lung cancer Non-Hodgkin lymphoma Paternal Uncle Colon cancer Social History Household Members: None Housing: Condominium Alcohol intake: never Patient Tobacco Use Status: Former Tobacco user Tobacco use type: Cigarette Cigarettes Per Day: 50 Years Smoked: 20 e-Cigarette/Vaping Use: Never Used Advance Directives Date on File: 02/08/22 service: No Current occupational status: retired Cognitive needs: No Hearing needs: No Vision needs: Yes Physical Exam Vital Signs: Last Vital Signs Pulse 67 08/04/23 09:36 BP 158/64 H 08/04/23 09:36 BMI result Body Mass Index 38.9 Absence of Cushingoid features. Absence of acromegalic features. Neck exam reveals nl size thyroid about 15 gms. No thyroid nodules palpable. No carotid bruits present. Lungs CTA. Heart S1 S2, Reg R/R. No M/R/ G. Skin exam reveals absence of vitiligo or acanthosis nigricans. Abdominal exam reveals Soft NT/ND with NA BS. No organomegaly present. Neck Other: . Extrem Other: Visual exam of foot performed. No ulcerations or open lesions. No onchomycosis, no callouses.Pulses 2 + distally Sensation intact to monofilament exam. Vibratory sensation sensed is Decreased with 128 Hz tuning fork Results AMB Hemoglobin A1c AMB Hemoglobin A1c 6.5 % Last Edit by Lanette Bernal on 08/04/23 10:03 Results Reviewed Results Reviewed: 08/04/23 09:41 Glucose, Whole Blood Routine Laboratory Last Values Glucose (Clinic) 110 mg/dL (60-115) 08/04/23 09:41 Hgb A1c (Clinic) 6.5 % (4.0-6.0) H 08/04/23 09:58 Assessment & Plan Assessment & Plan (1) Type 2 diabetes mellitus with diabetic polyneuropathy: Code(s): E11.42 - Type 2 diabetes mellitus with diabetic polyneuropathy Qualifiers: Diabetes mellitus assisted insulin use: with superintendent marine oil terminal use Qualified Code(s): E11.42 - Type 2 diabetes mellitus with diabetic polyneuropathy; Z79.4 - alf (current) use of insulin Plan: this is a 72-year-old white female with history of type 2 diabetes being treated with V-go 40 as well as Toujeo units with excellent glycemic control and known microvascular complications namely neuropathy, retinopathy and CKD. Plan is to stop the Jardiance in light of the yeast infections. Otherwise continue regimen.. . Orders: Orders AMB Hemoglobin A1c Today E11.42 - Type 2 diabetes mellitus with diabetic polyneuropathy Medications: Refilled blood-glucose sensor (Dexcom G7 Sensor device) As directed change every 10 days 3 ea 4RF Discontinued empagliflozin (Jardiance) Discontinued Reason: Doctor's Order 10 mg PO DAILY 30 tabs 5RF Coding Level of Care Code Est Pt Level 4 (29114) Diagnoses Type 2 diabetes mellitus with diabetic polyneuropathy, with long-term current use of insulin E11.42; Z79.4 Diabetes mellitus superintendent marine oil terminal insulin use: with superintendent marine oil terminal use
[2023-08-04 09:36] VITALS: BP 158/64; PULSE 67; BMI 38.9
[2023-08-04 09:46] LABS: Glucose, Whole Blood 110 mg/dL (60-115)
== END 2023-08-04 09:49 | disposition home or self-care (01) ==
PROVIDERS: PCP Internal Medicine; Visit Provider Internal Medicine Endocrinology, Diabetes & Metabolism
DX: E11.42 Type 2 diabetes mellitus with diabetic polyneuropathy (principal); Z79.4 Long term (current) use of insulin
CPT/HCPCS: 99214

== ENCOUNTER → 2023-08-04 09:21 | Outpatient (BNVA) | payer MEDICARE, SELFPAY | PROVIDERS: PCP Internal Medicine; Visit Provider Internal Medicine Endocrinology, Diabetes & Metabolism | DX: E11.42 Type 2 diabetes mellitus with diabetic polyneuropathy (principal); Z79.4 Long term (current) use of insulin | CPT/HCPCS: 82947; 83036; 99212 ==

== ENCOUNTER 2023-08-21 09:46 | Outpatient (REF) | payer MEDICARE, SELFPAY ==
[2023-08-21 13:14] LABS: MANUAL DIFF FLAG NO
[2023-08-21 13:34] LABS: Basophils Absolute Auto 0.1 X10*3/uL (0.0-0.2); Basophils Percent Auto 1.1 % (0-2); Eosinophils Absolute Auto 0.3 X10*3/uL (0.0-0.4); Eosinophils Percent Auto 4.2 % (0-4); Hematocrit 40.7 % (37.0-47.0); Hemoglobin 12.9 g/dl (12.0-16.0); Imm Gran Abs Auto 0.03 X10*3/uL (0.00-0.03); Imm Gran Pct Auto 0.5 % (0.0-0.4); Lymphocytes Absolute Auto 1.7 X10*3/uL (1.2-4.9); Lymphocytes Percent Auto 26.8 % (20-40); Mean Corpuscular HGB Conc 31.7 g/dl (31.0-35.0); Mean Corpuscular Volume 85.3 fL (80.0-98.0); Mean Platelet Volume 11.3 fL (9.4-12.3); Monocytes Absolute Auto 0.8 X10*3/uL (0.1-1.2); Monocytes Percent Auto 11.9 % (2-11); Neutrophils Absolute Auto 3.6 x10*3/uL (2.0-8.3); Neutrophils Percent Auto 55.5 % (45-73); Platelet Count 287 X10*3/uL (160-400); Red Blood Count 4.77 X10*6/uL (4.20-5.50); Red Cell Distribution Width 14.4 % (11.0-16.0); White Blood Count 6.4 X10*3/uL (4.8-10.8)
[2023-08-21 13:43] LABS: Alanine Aminotransferase 10 U/L (0-31); Aspartate Amino Transferase 19 U/L (5-31); C Reactive Protein 0.56 mg/dL (< or = 0.50); Estimated Glomerular Filt Rate 40
[2023-08-21 14:14] LABS: Erythrocyte Sedimentation Rate 32 MM/HR (0-20)
== END 2023-08-21 09:47 | disposition home or self-care (01) ==
LOC: HO.HMGCLDS 09:46
PROVIDERS: PCP Internal Medicine; Visit Provider Internal Medicine Rheumatology
DX: M05.9 Rheumatoid arthritis with rheumatoid factor, unspecified (principal); Z79.899 Other long term (current) drug therapy
CPT/HCPCS: 36415; 82565; 84450; 84460; 85025; 85652; 86140

== ENCOUNTER 2023-08-26 09:54 | Outpatient (AMB) | payer MEDICARE, SELFPAY ==
--- NOTE | 2023-08-26 10:04 | MHC.OFFVIS ---
Intake Intake Visit Reasons: ra Intake Note: Patient presents today to follow up on RA. [place] Waitress/Waiter Required: No Allergies codeine [Codeine] Allergy (Severe, Verified 08/04/23 09:45) DIFFICULTY BREATHING Penicillins Adverse Reaction (Intermediate, Verified 08/04/23 09:45) stomach upset semaglutide [From Ozempic] Adverse Reaction (Verified 08/04/23 09:45) Vomiting Medication List - Last Reconciled 08/26/23 by Ramirez Bill MD adalimumab (Humira(CF) Pen) 40 mg (0.4 mL) subcut Q2W 56 days albuterol sulfate 90 mcg/actuation (ProAir HFA) 2 puffs inhalation Q6H PRN blood sugar diagnostic ([employer] Ultra Test strips) 3x daily blood-glucose meter,continuous ([employer] G7 Mixed Crop Farmer) As directed blood-glucose sensor (Dexcom G7 Sensor device) As directed change every 10 days bumetanide 1 mg PO DAILY calcium carbonate (Calcium) 600 mg PO BID gabapentin (Neurontin) 300 mg PO BEDTIME insulin glargine U-300 conc (Toujeo Max U-300 SoloStar) 40 units (0.1333 mL) subcut BEDTIME insulin lispro Inject up with 70 units subcutaneously by patch pump daily subcutaneously daily; lansoprazole (Prevacid 24Hr) 15 mg PO DAILY leflunomide 10 mg PO DAILY lisinopril 20 mg PO DAILY 30 days pen needle, diabetic Once a day pen needle, diabetic (Easy Comfort Pen [place]) As directed once a day pravastatin 40 mg PO BEDTIME sodium zirconium cyclosilicate (Lokelma) 5 grams PO Q OTHER DAY sub-q insulin device, 40 unit (V-GO 40 device) USE DIRECTED HPI HPI Comments History of Present Illness Details The patient was called today for a telehealth visit value for evaluation of her osteoarthritis and rheumatoid arthritis. She indicated she could not get to the office because of car trouble. The joints have been stable with her current regimen which includes Humira 40 mg every 2 weeks and leflunomide 10 mg daily. She denies any side effects with this regimen. She feels that it is working reasonably well for her. She tells me that during the summer on CT scanning to look into some kidney stones a mass was found on her kidney. 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 It was treated with an ablative of procedure back in May. So far the imaging has shown an improvement she says and no additional treatment is planned but follow-up is recommended. She had no symptoms with this cancer. 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 GERD (gastroesophageal reflux disease) Type 2 diabetes mellitus with diabetic polyneuropathy Essential hypertension Dyslipidemia Surgical History Hx of colonoscopy Hx laparoscopic cholecystectomy Hx of tonsillectomy Hx of cataract surgery History of back surgery Family History Mother Diabetes CVD (cardiovascular disease) HTN (hypertension) Father Hodgkin disease Brother Hodgkin disease Sister Pancreatic cancer Sister Lung cancer Non-Hodgkin lymphoma Paternal Uncle Colon cancer Social History Household Members: None Housing: Condominium Alcohol intake: never Patient Tobacco Use Status: Former Tobacco user Tobacco use type: Cigarette Cigarettes Per Day: 50 Years Smoked: 20 e-Cigarette/Vaping Use: Never Used Advance Directives Date on File: 02/08/22 service: No Current occupational status: retired Cognitive needs: No Hearing needs: No Vision needs: Yes Review of Systems Const Details: Negative for appetite change, weight change, fever, chills, malaise and fatigue Eyes Details: Negative for vision change, dry eyes,headaches and dizziness Card Details: Negative chest pain, edema and syncope Resp Details: Negative for SOB, cough and wheezing GI Details: Negative indigestion/heartburn, nausea, abdominal pain, bowel changes, diarrhea, constipation and bloody stool. Details: Negative for dysuria, hematuria, nocturia, decreased force/flow and genital discharge Endo Details: Negative for polyuria and polydypsia Eduardo/Lymph Details: Negative for excessive bruising or bleeding. Physical Exam No exam today. This was a telephone visit. Results Reviewed Results Reviewed: Laboratory Tests 08/21/23 09:49 WBC 6.4 Hgb 12.9 ESR 32 H Creatinine 1.32 AST 19 ALT 10 C-Reactive Protein 0.56 H Assessment & Plan Assessment & Plan (1) Clear cell renal cell carcinoma: Comment: Mass was treated with ablative procedure May 2023 Code(s): C64.9 - Malignant neoplasm of unspecified kidney, except renal pelvis (2) jail use of drug: Code(s): Z79.899 - Other terminal clerk (current) drug therapy (3) CKD (chronic kidney disease) stage 2, GFR 60-89 ml/min: Code(s): N18.2 - Chronic kidney disease, stage 2 (mild) (4) Seropositive rheumatoid arthritis: Code(s): M05.9 - Rheumatoid arthritis with rheumatoid factor, unspecified Plan Rheumatoid arthritis with with at least what I can determine from talking to her not much in way of active inflammatory activity currently. She does have some lumbar osteoarthritis as was previously demonstrated. She looks like she has done well with the procedure for the renal cancer. The renal function with some baseline impairment did really change on the recent blood work; and CBC and LFTs were fine. We will continue to follow that along with LFTs and CBC. A repeat lab work is recommended for 3-4 months. She will continue with Humira and leflunomide as above. Return visit in 4 months. Review of the patient's recent medical procedures, lab work, and today's discussion took 15 minutes Orders: Orders Erythrocyte Sedimentation Rate Today M05.9 - Rheumatoid arthritis with rheumatoid factor, unspecified Creatinine Today M05.9 - Rheumatoid arthritis with rheumatoid factor, unspecified, Z79.899 - Other terminal clerk (current) drug therapy Alanine Aminotransferase Today M05.9 - Rheumatoid arthritis with rheumatoid factor, unspecified, Z79.899 - Other terminal clerk (current) drug therapy Aspartate Amino Transferase Today M05.9 - Rheumatoid arthritis with rheumatoid factor, unspecified, Z79.899 - Other terminal clerk (current) drug therapy C Reactive Protein Today M05.9 - Rheumatoid arthritis with rheumatoid factor, unspecified Complete Blood Count Auto Diff Today M05.9 - Rheumatoid arthritis with rheumatoid factor, unspecified, Z79.899 - Other retirement (current) drug therapy Medications: Refilled adalimumab (Humira(CF) Pen) 40 mg (0.4 mL) subcut Q2W 56 days 2 ea 5RF M05.9 - Rheumatoid arthritis with rheumatoid factor, unspecified Telehealth Telehealth Location of provider rendering services: practice address Location of patient: address on file Patient Identification confirmed using: Name, : Yes Telehealth method: voice only Patient verbally consented to treatment: Yes Patient verbally consented to billing insurance company: Yes Patient informed of any privacy concerns related to visit: Yes Coding Level of Care Code Tele Est Pt Level 3 (75953) Diagnoses Clear cell renal cell carcinoma C64.9 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
== END 2023-08-26 10:33 | disposition home or self-care (01) ==
PROVIDERS: PCP Internal Medicine; Visit Provider Internal Medicine Rheumatology
DX: C64.9 Malignant neoplasm of unspecified kidney, except renal pelvis (principal); M05.79 Rheumatoid arthritis with rheumatoid factor of multiple sites without organ or systems involvement; N18.2 Chronic kidney disease, stage 2 (mild); Z79.899 Other long term (current) drug therapy
CPT/HCPCS: 99442

== ENCOUNTER → 2023-08-26 09:54 | Outpatient (BNVA) | payer MEDICARE, SELFPAY | PROVIDERS: PCP Internal Medicine; Visit Provider Internal Medicine Rheumatology ==

== ENCOUNTER 2023-09-15 08:55 | Outpatient (REF) | payer MEDICARE, SELFPAY ==
[2023-09-15 11:16] LABS: Alanine Aminotransferase 11 U/L (0-31); Aspartate Amino Transferase 18 U/L (5-31)
== END 2023-09-15 08:56 | disposition home or self-care (01) ==
LOC: HO.HMGCLDS 08:55
PROVIDERS: PCP Internal Medicine; Visit Provider Internal Medicine
DX: E11.42 Type 2 diabetes mellitus with diabetic polyneuropathy (principal); E78.5 Hyperlipidemia, unspecified
CPT/HCPCS: 36415; 84450; 84460

== ENCOUNTER 2023-09-18 08:25 | Outpatient (AMB) | payer MEDICARE, SELFPAY ==
[2023-09-18 08:45] VITALS: BP 144/62; PULSE 61; O2SAT 98; BMI 39.2
--- NOTE | 2023-09-18 08:45 | MHC.PC.OV ---
Vital Signs 09/18/23 08:45 09/18/23 09:26 Height 5 ft 2 in Weight 214 lb 6 oz BMI 39.2 BP 144/62 H 130/70 Blood Pressure Location Rt brachial Lt brachial Position Sitting Sitting Pulse 61 Pulse Source Pulse Oximeter Pulse Oximetry (%) 98 Oxygen Delivery Method Room Air Intake Visit Reasons: 6 month follow up Intake Note: Pt is here to follow up for her lab results Allergies codeine [Codeine] Allergy (Severe, Verified 09/18/23 09:26) DIFFICULTY BREATHING Penicillins Adverse Reaction (Intermediate, Verified 09/18/23 09:26) stomach upset semaglutide [From Ozempic] Adverse Reaction (Verified 09/18/23 09:26) Vomiting Medication List - Last Reconciled 09/18/23 by Lyndsay Yan MD adalimumab (Humira(CF) Pen) 40 mg (0.4 mL) subcut Q2W 56 days albuterol sulfate 90 mcg/actuation (ProAir HFA) 2 puffs inhalation Q6H PRN blood sugar diagnostic (CrepeGuysTouch Ultra Test strips) 3x daily blood-glucose meter,continuous (Dexcom G7 Patient Services Technician) As directed blood-glucose sensor (Dexcom G7 Sensor device) As directed change every 10 days bumetanide 1 mg PO DAILY calcium carbonate (Calcium) 600 mg PO BID empagliflozin (Jardiance) 10 mg PO DAILY gabapentin (Neurontin) 300 mg PO BEDTIME insulin glargine U-300 conc (Toujeo Max U-300 SoloStar) 40 units (0.1333 mL) subcut BEDTIME insulin lispro Inject up with 70 units subcutaneously by patch pump daily subcutaneously daily; lansoprazole (Prevacid 24Hr) 15 mg PO DAILY leflunomide 10 mg PO DAILY lisinopril 20 mg PO DAILY 30 days pen needle, diabetic Once a day pen needle, diabetic (Easy Comfort Pen [place]) As directed once a day pravastatin 40 mg PO BEDTIME sodium zirconium cyclosilicate (Lokelma) 5 grams PO Q OTHER DAY sub-q insulin device, 40 unit (V-GO 40 device) USE DIRECTED Tobacco use date assessed: 09/18/23 Fall risk assessment: No Falls in past year Last assessed Fall Risk: 09/18/23 Dental Screening Dental Screen Date: 09/18/23 Did you have a dental visit in the last 12 months?: Yes Did you have a dental problem in the last 6 months where you did not have access to dental care?: No Was dental information given to patient?: Patient has dentist HPI 6 month follow up HPI Details 73-year-old lady here today for follow-up on her lipids. Unfortunately she has not had it done yet. Her last fasting lipids were within normal limits last March 2023, currently taking pravastatin 40 mg at bedtime. She was recently diagnosed with left clear cell renal carcinoma, status post ablation by Urology, will be getting serial CT scans to monitor. She also has family history of Red syndrome and pancreatic cancer, recently seen by Dr. Puentes who did a genetic testing, showing no predisposition for any of these cancers by patient. She sees Dr. Santiago once a year but gets her renal function monitored every 3 months. She has been feeling well with no complaints at present time [facility] Medical History (Updated 09/18/23 @ 09:33 by Lyndsay Yan MD) Herpes zoster vaccination declined COVID-19 vaccine dose declined Diabetic retinopathy Tubular adenoma of colon Osteopenia History of severe acute respiratory syndrome coronavirus 2 (SARS-CoV-2) disease Obesity due to excess calories 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 Postlaminectomy syndrome MGUS (monoclonal gammopathy of unknown significance) 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 mellitus) Diabetic retinopathy associated with type 2 diabetes mellitus CKD (chronic kidney disease) stage 3, 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 GERD (gastroesophageal reflux disease) Type 2 diabetes mellitus with diabetic polyneuropathy Essential hypertension Dyslipidemia Surgical History Hx of colonoscopy Hx laparoscopic cholecystectomy Hx of tonsillectomy Hx of cataract surgery History of back surgery Family History Mother Diabetes CVD (cardiovascular disease) HTN (hypertension) Father Hodgkin disease Brother Hodgkin disease Sister Pancreatic cancer Sister Lung cancer Non-Hodgkin lymphoma Paternal Uncle Colon cancer Social History Household Members: None Housing: Condominium Alcohol intake: never Patient Tobacco Use Status: Former Tobacco user Tobacco use type: Cigarette Cigarettes Per Day: 50 Years Smoked: 20 e-Cigarette/Vaping Use: Never Used Advance Directives Date on File: 02/08/22 service: No Current occupational status: retired Cognitive needs: No Hearing needs: No Vision needs: Yes Questionnaire Thrive Questionnaire Date Thrive assessed: 03/31/23 JENY-7 AMB Questionnaire JENY-7 Date JENY - 7 assessed: 03/31/23 Source: Developed by Drs. Bang Wilkerson, Ivett Sidhu, Alejandro Momin and colleagues, with an educational pretty from [employer]. Review of Systems Const Denies body aches, Denies fatigue, Denies fever(s) and Denies headache(s) Eyes Denies change in vision ENT Denies dizziness, Denies headache(s), Denies nasal congestion, Denies nasal discharge and Denies sore throat Card Denies chest pain, Denies lightheadedness, Denies palpitations and Denies dyspnea Resp Denies chest congestion, Denies cough, Denies dyspnea and Denies wheezing GI Denies abdominal pain, Denies change in bowel habits and Denies heartburn Denies urinary frequency, Denies dysuria and Denies urinary urgency Musc Reports arthralgias, Denies joint swelling, Denies muscle weakness and Reports stiffness Neuro Denies dizziness and Denies headache(s) Endo Denies fatigue, Denies polydipsia, Denies polyuria and Denies palpitations Eduardo/Lymph Reports no additional complaints Aller/Immun Denies seasonal rhinorrhea and Denies wheezing Physical exam (Primary Care) Vital Signs: Last Vital Signs Pulse 61 09/18/23 08:45 BP 144/62 H 09/18/23 08:45 Pulse Ox 98 09/18/23 08:45 Oxygen Delivery Method Room Air 09/18/23 08:45 BMI result Body Mass Index 39.2 BMI Assessment/Plan discussion: High BMI High, discussed plan: lifestyle, weight reduction, dietary and physical activity Tobacco/Smoking Status: Tobacco use Status Tobacco use date assessed 09/18/23 09/18/23 08:51 Patient Tobacco Use Status Former Tobacco user 09/18/23 08:45 Tobacco use type Cigarette 09/18/23 08:45 e-Cigarette/Vaping Use Never Used 09/18/23 08:45 Thrive Assessment: Date of Thrive Assessment Date Thrive assessed 03/31/23 09/18/23 08:45 Const General: comfortable and no acute distress Nutritional Appearance: obese morbidly obese Orientation/consciousness: patient oriented x3 [facility] General nose exam: Normal external nose present and No nasal discharge present Face and sinus: Yes face symmetric Mouth: Normal oral and palatal mucosa present and moist mucous membranes Eyes General: appearance normal, both eyes and all related structures Neck Neck: Yes full ROM and Yes no lymphadenopathy Thyroid: Thyroid normal Resp Auscultation: clear to auscultation bilaterally Cardio Other: S1-S2 present regular rate mint with GI Inspection: Yes obesity Palpation (GI): Soft to palpation, nontender, no guarding and no masses Auscultation: normal bowel sounds Back/Spine/Pelvis Back: No back tenderness Skin General skin exam: no rashes or lesions noted Neuro General: patient oriented x3, gait normal, tone normal, moves all extremities, Normal light touch and pain sensation, no focal motor deficits, CN's II-XI intact bilaterally and normal sensation to monofilament Extrem General: Yes full ROM, Yes no joint enlargement, Yes no pedal edema and Yes normal gait Results Reviewed Results Reviewed: Name: Paola Vargas Age/Sex: 73/F : 1950 Unit#: [id number] Attend Dr: Oralia Puentes MD Re09/07/23 Status: REG R Location: HO.ONC Disch: SPEC : [id number] GUI: 09/07/23 STATUS: COMP REQ : [id number] RECD: 09/07/[address]: Oralia Puentes MD COMP: 09/07/23 ENTERED: 09/07/[address]: Lyndsay Yan MD ORDERED: CBC Auto Diff Test Result Flag Reference Site WBC 13.0 H 4.8-10.8 X10*3/uL RBC 4.63 4.20-5.50 X10*6/uL HGB 12.8 12.0-16.0 g/dl HCT 40.2 37.0-47.0 % MCV 86.8 80.0-98.0 fL MCH 27.6 27.0-33.0 pg MCHC 31.8 31.0-35.0 g/dl RDW 14.7 11.0-16.0 % PLT 278 160-400 X10*3/uL MPV 10.9 9.4-12.3 fL Neut Pct Auto 77.3 H 45-73 % ImGran Pct Auto 0.6 H 0.0-0.4 % Lymp Pct Auto 11.1 L 20-40 % [place] Pct Auto 7.7 2-11 % Eos Pct Auto 3.0 0-4 % Baso Pct Auto 0.3 0-2 % NRBC Pct Auto 0.0 0.0-0.2 /100WBC ANC Neut Abs # 10.0 H 2.0-8.3 x10*3/uL ImGran Abs Auto 0.08 H 0.00-0.03 X10*3/uL Lymph Abs Auto 1.4 1.2-4.9 X10*3/uL [place] Abs Auto 1.0 0.1-1.2 X10*3/uL Eos Abs Auto 0.4 0.0-0.4 X10*3/uL Baso Abs Auto 0.0 0.0-0.2 X10*3/uL NRBC Abs Auto 0.000 0.0-0.012 X10*3/uL ENTERED: 09/07/[address] [facility] [address]: Lyndsay Yan MD ORDERED: CMP Test Result Flag Reference Site Sodium 141 135-145 mmol/L Potassium 4.5 3.3-5.1 mmol/L CL 106 96-108 mmol/L CO2 26 22-29 mmol/L Gap 14 12-20 BUN 50 H 9-16 mg/dL Creat 1.91 H 0.5-1.4 mg/dL Estimated CrCl 28.5 Provided height and weight: 157.48 cm, 97.2 kg. eGFR (calculated from the MDRD study equation) and eCrCl (calculated from the Cockcroft-Gault equation) are based on different parameters and may not yield comparable results. If eCrCl result is absurd, please check patient's height/weight. EGFR 26 NOTE: For -Turkmen individuals, multiply the result by 1.210. Chronic Kidney Disease: Estimated GFR < 60 mL/min/1.73m2 Severe Kidney Disease: Estimated GFR < 15 mL/min/1.73m2 Glucose, Random 167 H 60-115 mg/dL CA 9.4 # 8.4-10.2 mg/dL Total Bili 0.4 0.0-1.0 mg/dL AST (GOT) 22 5-31 U/L ALT (GPT) 15 0-31 U/L Protein, Total 7.6 6.5-8.0 g/dL Alb 4.1 3.5-5.0 g/dL Alk Phos 96 39-117 U/L Laboratory Tests 08/04/23 09:58 Hgb A1c (Clinic) 6.5 H Assessment and Plan Assessment & Plan (1) Dyslipidemia: Code(s): E78.5 - Hyperlipidemia, unspecified Plan: Ordered a fasting lipid panel to be done in 11/2023 . In the meantime continue with pravastatin, adherence to healthy eating habits and getting regular exercise. (2) COVID-19 vaccine dose declined: Code(s): Z28.21 - Immunization not carried out because of patient refusal (3) Herpes zoster vaccination declined: Code(s): Z28.21 - Immunization not carried out because of patient refusal Orders: Orders Vitamin D 25-OH Total 11/12/23 E78.5 - Hyperlipidemia, unspecified, M85.80 - Other specified disorders of bone density and structure, unspecified site, Z78.0 - Asymptomatic menopausal state Lipid Panel 11/12/23 E78.5 - Hyperlipidemia, unspecified, M85.80 - Other specified disorders of bone density and structure, unspecified site, Z78.0 - Asymptomatic menopausal state Coding Level of Care Code Est Pt Level 3 (36259) Diagnoses Dyslipidemia E78.5 COVID-19 vaccine dose declined Z. Herpes zoster vaccination declined Z28.21
[2023-09-18 09:26] VITALS: BP 130/70
== END 2023-09-18 11:19 | disposition home or self-care (01) ==
PROVIDERS: PCP Internal Medicine; Visit Provider Internal Medicine
DX: E78.5 Hyperlipidemia, unspecified (principal); Z28.21 Immunization not carried out because of patient refusal
CPT/HCPCS: 99213

== ENCOUNTER 2023-09-30 08:49 | Outpatient (AMB) | payer MEDICARE, SELFPAY ==
[2023-09-30 08:55] VITALS: BP 136/70; PULSE 74; O2SAT 96; BMI 38.3
--- NOTE | 2023-09-30 08:55 | A.OFFPC_ITS ---
Vital Signs 09/30/23 08:55 Height 5 ft 2 in Weight 209 lb 8 oz BMI 38.3 BP 136/70 Blood Pressure Location Rt brachial Position Sitting Pulse 74 Pulse Source Pulse Oximeter Pulse Oximetry (%) 96 Oxygen Delivery Method Room Air Intake Visit Reasons: bilateral leg pain Intake Note: Pt is here for for pain in both her legs that starts from her hips all the way down to the front of her lower leg pt says the pain started a few weeks ago with no prior injury pt stats her left leg always swells Allergies codeine [Codeine] Allergy (Severe, Verified 09/30/23 09:42) DIFFICULTY BREATHING Penicillins Adverse Reaction (Intermediate, Verified 09/30/23 09:42) stomach upset semaglutide [From Ozempic] Adverse Reaction (Verified 09/30/23 09:42) Vomiting Medication List - Last Reconciled 09/30/23 by Lyndsay Yan MD adalimumab (Humira(CF) Pen) 40 mg (0.4 mL) subcut Q2W 56 days albuterol sulfate 90 mcg/actuation (ProAir HFA) 2 puffs inhalation Q6H PRN blood sugar diagnostic (thinktank.netTouch Ultra Test strips) 3x daily blood-glucose meter,continuous (Dexcom G7 Cook Room Supervisor) As directed blood-glucose sensor (Dexcom G7 Sensor device) As directed change every 10 days bumetanide 1 mg PO DAILY calcium carbonate (Calcium) 600 mg PO BID gabapentin (Neurontin) 300 mg PO BEDTIME insulin glargine U-300 conc (Toujeo Max U-300 SoloStar) 40 units (0.1333 mL) subcut BEDTIME insulin lispro Inject up with 70 units subcutaneously by patch pump daily subcutaneously daily; lansoprazole (Prevacid 24Hr) 15 mg PO DAILY leflunomide 10 mg PO DAILY lisinopril 20 mg PO DAILY 30 days meloxicam 15 mg PO DAILY pen needle, diabetic Once a day pen needle, diabetic (Easy Comfort Pen [place]) As directed once a day pravastatin 40 mg PO BEDTIME sodium zirconium cyclosilicate (Lokelma) 5 grams PO Q OTHER DAY sub-q insulin device, 40 unit (V-GO 40 device) USE DIRECTED Tobacco use date assessed: 09/30/23 Fall risk assessment: No Falls in past year Last assessed Fall Risk: 09/30/23 Dental Screening Dental Screen Date: 09/30/23 Did you have a dental visit in the last 12 months?: Yes Did you have a dental problem in the last 6 months where you did not have access to dental care?: No Was dental information given to patient?: Patient has dentist HPI bilateral leg pain HPI Details 73-year-old lady with diabetes mellitus with neuropathy, history of clear cell renal carcinoma, dyslipidemia, chronic kidney disease arthritis, spinal stenosis of lumbar region with radiculopathy, monoclonal gammopathy, with family history of Red syndrome, here today complaining of worsening pain in lateral aspect of both hip radiating down anterior aspect of both thighs up to gardner, which has been present now for the last 2 weeks. Patient states that it sometimes happens when she gets up from a sitting position or when she turns sideways in bed with sleeping at night. He is currently on gabapentin and has been taking Tylenol arthritis which has not afforded any relief. Denies any accompanying numbness, no tingling, no urinary or stool incontinence, no weakness in both lower extremities reported. Has no history of fall or trauma to affected area [facility] Medical History Leg pain, bilateral Herpes zoster vaccination declined COVID-19 vaccine dose declined Diabetic retinopathy Tubular adenoma of colon Osteopenia History of severe acute respiratory syndrome coronavirus 2 (SARS-CoV-2) disease Obesity due to excess calories 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 Postlaminectomy syndrome MGUS (monoclonal gammopathy of unknown significance) 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 mellitus) Diabetic retinopathy associated with type 2 diabetes mellitus CKD (chronic kidney disease) stage 3, 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-59 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 GERD (gastroesophageal reflux disease) Type 2 diabetes mellitus with diabetic polyneuropathy Essential hypertension Dyslipidemia Surgical History Hx of colonoscopy Hx laparoscopic cholecystectomy Hx of tonsillectomy Hx of cataract surgery History of back surgery Family History Mother Diabetes CVD (cardiovascular disease) HTN (hypertension) Father Hodgkin disease Brother Hodgkin disease Sister Pancreatic cancer Sister Lung cancer Non-Hodgkin lymphoma Paternal Uncle Colon cancer Social History Household Members: None Housing: Condominium Alcohol intake: never Patient Tobacco Use Status: Former Tobacco user Tobacco use type: Cigarette Cigarettes Per Day: 50 Years Smoked: 20 e-Cigarette/Vaping Use: Never Used Advance Directives Date on File: 02/08/22 service: No Current occupational status: retired Cognitive needs: No Hearing needs: No Vision needs: Yes Questionnaire Thrive Questionnaire Date Thrive assessed: 03/31/23 JENY-7 AMB Questionnaire JENY-7 Date JENY - 7 assessed: 03/31/23 Source: Developed by Drs. Bang Wilkerson, Ivett Sidhu, Alejandro Momin and colleagues, with an educational pretty from [employer] Review of Systems Const All systems reviewed & are unremarkable except as noted in HPI and below Physical exam (Primary Care) Vital Signs: Last Vital Signs Pulse 74 09/30/23 08:55 BP 136/70 09/30/23 08:55 Pulse Ox 96 09/30/23 08:55 Oxygen Delivery Method Room Air 09/30/23 08:55 BMI result Body Mass Index 38.3 Tobacco/Smoking Status: Tobacco use Status Tobacco use date assessed 09/30/23 09/30/23 09:05 Patient Tobacco Use Status Former Tobacco user 09/30/23 08:55 Tobacco use type Cigarette 09/30/23 08:55 e-Cigarette/Vaping Use Never Used 09/30/23 08:55 Thrive Assessment: Date of Thrive Assessment Date Thrive assessed 03/31/23 09/30/23 08:55 Const General: comfortable and no acute distress Nutritional Appearance: obese Orientation/consciousness: patient oriented x3 Limitations: no limitations Neck Neck: Yes full ROM, Yes no lymphadenopathy and Yes supple GI Palpation (GI): Soft to palpation, nontender and no masses General: Yes no CVA tenderness Back/Spine/Pelvis Other: Tenderness on palpation over lateral aspect of both hips, with decreased range of motion in right hip joint due to pain Back: no CVA tenderness Skin General skin exam: no rashes or lesions noted Neuro General: patient oriented x3, gait normal, tone normal, moves all extremities, Normal light touch and pain sensation, no focal motor deficits and CN's II-XI intact bilaterally Extrem General: Yes full ROM, Yes no joint enlargement, Yes no calf tenderness and Yes normal gait Results Reviewed Results Reviewed: SPEC : [id number] GUI: 09/07/23 STATUS: COMP REQ : [id number] RECD: 09/07/[address] [facility] [address]: Oralia Puentes MD COMP: 09/07/23 ENTERED: 09/07/[address] [facility] [address]: Lyndsay Yan MD ORDERED: CBC Auto Diff Test Result Flag Reference Site WBC 13.0 H 4.8-10.8 X10*3/uL RBC 4.63 4.20-5.50 X10*6/uL HGB 12.8 12.0-16.0 g/dl HCT 40.2 37.0-47.0 % MCV 86.8 80.0-98.0 fL MCH 27.6 27.0-33.0 pg MCHC 31.8 31.0-35.0 g/dl RDW 14.7 11.0-16.0 % PLT 278 160-400 X10*3/uL MPV 10.9 9.4-12.3 fL Neut Pct Auto 77.3 H 45-73 % ImGran Pct Auto 0.6 H 0.0-0.4 % Lymp Pct Auto 11.1 L 20-40 % [place] Pct Auto 7.7 2-11 % Eos Pct Auto 3.0 0-4 % Baso Pct Auto 0.3 0-2 % NRBC Pct Auto 0.0 0.0-0.2 /100WBC ANC Neut Abs # 10.0 H 2.0-8.3 x10*3/uL ImGran Abs Auto 0.08 H 0.00-0.03 X10*3/uL Lymph Abs Auto 1.4 1.2-4.9 X10*3/uL [place] Abs Auto 1.0 0.1-1.2 X10*3/uL Eos Abs Auto 0.4 0.0-0.4 X10*3/uL Baso Abs Auto 0.0 0.0-0.2 X10*3/uL NRBC Abs Auto 0.000 0.0-0.012 X10*3/uL Assessment and Plan Assessment & Plan (1) Leg pain, bilateral: Code(s): M79.604 - Pain in right leg; M79.605 - Pain in left leg (2) Lateral pain of hip: Code(s): M25.559 - Pain in unspecified hip Plan Ordered total CK, see if this is something cause by her pravastatin, advised to stop pravastatin temporarily. X-ray ordered for both hips, prescription sent for meloxicam 15 mg per tab to take once a day. Try massaging absorbent louann to affected area or apply Salonpas patch with heat to affected area in both hips Orders: Orders Creatine Kinase Total Today M79.604 - Pain in right leg, M79.605 - Pain in left leg XR hips REEMA min 3V Today M25.559 - Pain in unspecified hip Medications: New meloxicam 15 mg PO DAILY 30 tabs 0RF hip pain Coding Level of Care Code Est Pt Level 3 (97613) Diagnoses Leg pain, bilateral M79.604; M79.605 Lateral pain of hip M25.559
== END 2023-09-30 15:57 | disposition home or self-care (01) ==
PROVIDERS: PCP Internal Medicine; Visit Provider Internal Medicine
DX: M79.604 Pain in right leg (principal); M79.605 Pain in left leg; M25.559 Pain in unspecified hip
CPT/HCPCS: 99213

== ENCOUNTER 2023-09-30 09:39 | Outpatient (REF) | payer MEDICARE, SELFPAY ==
--- NOTE | ~2023-09-30 | XR_ITS ---
EXAMINATION: XR BILATERAL HIPS WITH AP PELVIS CLINICAL INFORMATION: Pain. COMPARISON: None available. TECHNIQUE: AP view of the pelvis and AP and frog lateral views of each hip were obtained. FINDINGS: No fracture. Hip joint spaces are maintained. There are small accessory ossification centers seen adjacent to the bilateral acetabular roofs. Alignment is anatomic. Sacroiliac joints and pubic symphysis are normal. There are atherosclerotic calcifications. There are degenerative changes of the lumbar spine. XR/XR hips REEMA min 3V IMPRESSION: Unremarkable pelvis and hips.
== END 2023-09-30 09:40 | disposition home or self-care (01) ==
LOC: HO.HMGCX 09:39
PROVIDERS: PCP Internal Medicine; Visit Provider Internal Medicine
DX: M25.559 Pain in unspecified hip (principal); M79.604 Pain in right leg; M79.605 Pain in left leg
CPT/HCPCS: 36415; 73522; 82550

== ENCOUNTER 2023-10-28 11:38 | Outpatient (REF) | payer MEDICARE, SELFPAY ==
[2023-10-28 13:41] LABS: MANUAL DIFF FLAG NO
[2023-10-28 13:51] LABS: Basophils Absolute Auto 0.1 X10*3/uL (0.0-0.2); Basophils Percent Auto 1.1 % (0-2); Eosinophils Absolute Auto 0.3 X10*3/uL (0.0-0.4); Eosinophils Percent Auto 4.2 % (0-4); Hematocrit 39.9 % (37.0-47.0); Hemoglobin 12.6 g/dl (12.0-16.0); Imm Gran Abs Auto 0.05 X10*3/uL (0.00-0.03); Imm Gran Pct Auto 0.7 % (0.0-0.4); Lymphocytes Absolute Auto 1.8 X10*3/uL (1.2-4.9); Lymphocytes Percent Auto 24.7 % (20-40); Mean Corpuscular HGB Conc 31.6 g/dl (31.0-35.0); Mean Corpuscular Hemoglobin 27.5 pg (27.0-33.0); Mean Corpuscular Volume 87.1 fL (80.0-98.0); Monocytes Absolute Auto 0.8 X10*3/uL (0.1-1.2); Monocytes Percent Auto 11.1 % (2-11); Neutrophils Absolute Auto 4.3 x10*3/uL (2.0-8.3); Neutrophils Percent Auto 58.2 % (45-73); Platelet Count 289 X10*3/uL (160-400); Red Blood Count 4.58 X10*6/uL (4.20-5.50); Red Cell Distribution Width 14.9 % (11.0-16.0); White Blood Count 7.3 X10*3/uL (4.8-10.8)
[2023-10-28 14:13] LABS: Alanine Aminotransferase 13 U/L (0-31); Aspartate Amino Transferase 19 U/L (5-31); C Reactive Protein 0.59 mg/dL (< or = 0.50); Estimated Glomerular Filt Rate 34
[2023-10-28 14:39] LABS: Erythrocyte Sedimentation Rate 31 MM/HR (0-20)
== END 2023-10-28 11:39 | disposition home or self-care (01) ==
LOC: HO.HMGCLDS 11:38
PROVIDERS: PCP Internal Medicine; Visit Provider Internal Medicine Rheumatology
DX: M05.9 Rheumatoid arthritis with rheumatoid factor, unspecified (principal); Z79.899 Other long term (current) drug therapy
CPT/HCPCS: 36415; 82565; 84450; 84460; 85025; 85652; 86140

== ENCOUNTER 2023-11-04 10:59 | Outpatient (AMB) | payer MEDICARE, SELFPAY ==
--- NOTE | 2023-11-04 11:15 | A.OFFVIS_ITS ---
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 Accompanied by: self Allergies codeine [Codeine] Allergy (Severe, Verified 11/04/23 11:18) DIFFICULTY BREATHING Penicillins Adverse Reaction (Intermediate, Verified 11/04/23 11:18) stomach upset semaglutide [From Ozempic] Adverse Reaction (Verified 11/04/23 11:18) Vomiting Medication List - Last Reconciled 11/04/23 by Gina Godinez RN adalimumab (Humira(CF) Pen) 40 mg (0.4 mL) subcut Q2W 56 days albuterol sulfate 90 mcg/actuation (ProAir HFA) 2 puffs inhalation Q6H PRN blood sugar diagnostic (Cam-Trax TechnologiesTouch Ultra Test strips) 3x daily blood-glucose meter,continuous (Dexcom G7 Supervisor Waterproofing) As directed blood-glucose sensor (Dexcom G7 Sensor device) As directed change every 10 days bumetanide 1 mg PO DAILY calcium carbonate (Calcium) 600 mg PO BID gabapentin (Neurontin) 300 mg PO BEDTIME insulin glargine U-300 conc (Toujeo Max U-300 SoloStar) 40 units (0.1333 mL) subcut BEDTIME insulin lispro Inject up to 70 units with patch pump daily subcutaneously subcutaneously daily; lansoprazole (Prevacid 24Hr) 15 mg PO DAILY leflunomide 10 mg PO DAILY lisinopril 20 mg PO DAILY 30 days pen needle, diabetic Once a day pen needle, diabetic (Easy Comfort Pen [place]) As directed once a day sodium zirconium cyclosilicate (Lokelma) 5 grams PO Q OTHER DAY sub-q insulin device, 40 unit (V-GO 40 device) USE DIRECTED HPI HPI Comments History of Present Illness Details Ms. Guevara, 73 yo F seen in the office for Rheumatoid Arthritis. Today she comes in on a urgent visit for hip bursitis. She has been having pain for many months and it impacts her sleep at night. She uses a topical ointment but it gives limited relief. Prior visit - Telehealth: The patient was called today for a telehealth visit value for evaluation of her osteoarthritis and rheumatoid arthritis. She indicated she could not get to the office because of car trouble. The joints have been stable with her current regimen which includes Humira 40 mg every 2 weeks and leflunomide 10 mg daily. She denies any side effects with this regimen. She feels that it is working reasonably well for her. She tells me that during the summer on CT scanning to look into some kidney stones a mass was found on her kidney. 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 It was treated with an ablative of procedure back in May. So far the imaging has shown an improvement she says and no additional treatment is planned but follow-up is recommended. She had no symptoms with this cancer. [facility] Medical History (Updated 11/04/23 @ 12:36 by Ivy Martin, AGRICULTURAL SERVICES DIRECTOR-) Trochanteric bursitis of both hips Leg pain, bilateral Herpes zoster vaccination declined COVID-19 vaccine dose declined Diabetic retinopathy Tubular adenoma of colon Osteopenia History of severe acute respiratory syndrome coronavirus 2 (SARS-CoV-2) disease Obesity due to excess calories 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 Postlaminectomy syndrome MGUS (monoclonal gammopathy of unknown significance) 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 mellitus) Diabetic retinopathy associated with type 2 diabetes mellitus CKD (chronic kidney disease) stage 3, GFR 30-59 ml/min longterm (current) use of insulin GERD (gastroesophageal reflux disease) Type 2 diabetes mellitus with diabetic polyneuropathy Essential hypertension Dyslipidemia Surgical History Hx of colonoscopy Hx laparoscopic cholecystectomy Hx of tonsillectomy Hx of cataract surgery History of back surgery Family History Mother Diabetes CVD (cardiovascular disease) HTN (hypertension) Father Hodgkin disease Brother Hodgkin disease Sister Pancreatic cancer Sister Lung cancer Non-Hodgkin lymphoma Paternal Uncle Colon cancer Social History Household Members: None Housing: Condominium Alcohol intake: never Patient Tobacco Use Status: Former Tobacco user Tobacco use type: Cigarette Cigarettes Per Day: 50 Years Smoked: 20 e-Cigarette/Vaping Use: Never Used Advance Directives Date on File: 02/08/22 service: No Current occupational status: retired Cognitive needs: No Hearing needs: No Vision needs: Yes Review of Systems Const All systems reviewed & are unremarkable except as noted in HPI and below Physical Exam Vital Signs: Last Vital Signs Temp 97.7 F 11/04/23 11:16 Pulse 76 11/04/23 11:16 BP 142/68 H 11/04/23 11:16 Pulse Ox 96 11/04/23 11:16 Oxygen Delivery Method Room Air 11/04/23 11:16 BMI result Body Mass Index 40.2 APPEARANCE: Patient in no acute distress JOINT EXAM: ??Cervical Spine:? Full range of motion without pain; no tenderness. Thoracic Spine:? No tenderness on palpation. Lumbar Spine: Alignment normal.? Full range of motion with slight pain at the extremes. No tenderness.? Small well-healed scar noted in the center of lumbar spine. Hands: LEFT:? Normal pain-free range of motion with no soft tissue swelling in the MCP joints with some slight tenderness in the 1st 2 MCPs. There is also tenderness over the CMC joint at the thumb. ? RIGHT:? Normal pain free range of motion with no swelling but mild tenderness in the 1st 3 MCP joints and at the base of the thumb. Slight limited ability to make a full fist, not able to fully flex the 3rd PIP,? per patient this a chronic change. No tenderness along the flexor tendons or triggering noted. Wrists: Right: Mild pain with flexion extension at 60 degrees and some slight tenderness but no swelling. Left: Mild pain with flexion extension at 60 degrees with some slight swelling and tenderness. Elbows: Normal pain-free range of motion without tenderness, swelling, increased warmth or erythema. Shoulders:?? Full range of motion without pain. No tenderness, weakness, swelling, increased warmth or erythema. Hip bursa:?Severe bilateral Tenderness. Knees::? Normal pain-free range of motion with mild patellofemoral crepitus. No effusion, swelling, increased warmth or erythema. No effusion or crepitation noted. ? n Ankles:? Normal pain-free range of motion without tenderness, swelling, increased warmth or erythema. Feet: LEFT:? Normal pain-free range of motion without tenderness, swelling, increased warmth or erythema. ? RIGHT:? Normal pain-free range of motion without tenderness, swelling, increased warmth erythema. Office Procedures Joint Injection/Drain Joint Injection/Drain Details: Bilateral Trochanteric Bursitis injection Primary Site: other Prep: site was prepped using aseptic technique Injected: 80 mg of, with 1 mL of and 1% plain lidocaine Approach Used: anterolateral Procedure: The patient tolerated the procedure well Coding - Large joint - Glenohumeral/Tronchanteric Bursa/Intraarticular Procedure code (CPT) selection complete Assessment & Plan Assessment & Plan (1) Clear cell renal cell carcinoma: Comment: Mass was treated with ablative procedure May 2023 Code(s): C64.9 - Malignant neoplasm of unspecified kidney, except renal pelvis (2) longterm use of drug: Code(s): Z79.899 - 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 Patient has endorsed that she has had PT in the past for this. She still has the exercises at home. I have encouraged that once the tenderness subsides in a few days, she should restart those exercises regularly. #SeroPos RA: Rheumatoid arthritis seems to be well managed Humira 40 mg QOW and Leflunomide 10 mg QD. Except for her right dequervain's tenderness which seem persistent, there is not much else in the way of active inflammatory activity currently. She has received injection in the past for the Dequervain's tendonitis. She will continue with Humira and leflunomide as above. #Clear Cell renal Carcinoma/CKD. She looks like she has done well with the procedure for the renal cancer and will be doing a scan on Dec 01 and follows on the th Urologist and Oncologist. The renal function with some baseline impairment did not really change on the recent blood work. #Shelter Use: We will continue to follow renal function, LFTs and CBC. A repeat lab work is recommended for 3-4 months. Return visit in 4 months. 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
[2023-11-04 11:16] VITALS: BP 142/68; PULSE 76; TEMP 36.5; O2SAT 96; BMI 40.2
== END 2023-11-04 12:00 | disposition home or self-care (01) ==
PROVIDERS: PCP Internal Medicine; Visit Provider Nurse Practitioner Family
DX: C64.9 Malignant neoplasm of unspecified kidney, except renal pelvis (principal); Z79.899 Other long term (current) drug therapy; N18.2 Chronic kidney disease, stage 2 (mild); M05.79 Rheumatoid arthritis with rheumatoid factor of multiple sites without organ or systems involvement; M70.61 Trochanteric bursitis, right hip; M70.62 Trochanteric bursitis, left hip
CPT/HCPCS: 20610; 99214

== ENCOUNTER → 2023-11-04 10:59 | Outpatient (BNVA) | payer MEDICARE, SELFPAY | PROVIDERS: PCP Internal Medicine; Visit Provider Nurse Practitioner Family | DX: M70.61 Trochanteric bursitis, right hip (principal); M70.62 Trochanteric bursitis, left hip; M05.9 Rheumatoid arthritis with rheumatoid factor, unspecified; N18.2 Chronic kidney disease, stage 2 (mild); C64.9 Malignant neoplasm of unspecified kidney, except renal pelvis; Z79.899 Other long term (current) drug therapy | CPT/HCPCS: 20610; 99212 ==

== ENCOUNTER 2023-11-23 06:50 | Outpatient (REF) | payer MEDICARE, SELFPAY ==
[2023-11-23 12:50] LABS: Blood Urea Nitrogen 52 mg/dL (9-16); Cholesterol 214 mg/dL (<200); Estimated Glomerular Filt Rate 33; HDL Cholesterol 67 mg/dL (>40); LDL Cholesterol Calculated 136 mg/dL (<100); Triglycerides 58 mg/dL (<150); Vitamin D 25-OH Total 45.2 ng/mL (>30)
== END 2023-11-23 06:51 | disposition home or self-care (01) ==
LOC: HO.HMGCLDS 06:50
PROVIDERS: PCP Internal Medicine; Referring Provider Nurse Practitioner Family; Visit Provider Internal Medicine
DX: C64.9 Malignant neoplasm of unspecified kidney, except renal pelvis (principal); M85.80 Other specified disorders of bone density and structure, unspecified site; E78.5 Hyperlipidemia, unspecified; Z78.0 Asymptomatic menopausal state
CPT/HCPCS: 36415; 80061; 82306; 82565; 84520

== ENCOUNTER 2023-12-01 10:17 | Outpatient (REF) | payer MEDICARE, SELFPAY ==
--- NOTE | ~2023-12-01 | CT_ITS ---
EXAMINATION: CT CHEST, ABDOMEN AND PELVIS WITH CONTRAST CLINICAL INFORMATION: Renal cell carcinoma. COMPARISON: 04/15/2023 TECHNIQUE: Multidetector volumetric imaging was performed of the chest, abdomen and pelvis following administration of 85 mL Omnipaque 300 intravenous contrast. Oral contrast was not administered. Sagittal and coronal reformatted images were obtained on the technologist's workstation. This CT examination was performed using dose optimization techniques as appropriate, variously including the following: *Automated exposure control *Adjustment of mA and/or kV according to patient size (this includes techniques or standardized protocols for targeted exams where dose is matched to indication/reason for exam; i.e. extremities or head) *Use of iterative reconstruction technique DLP: 1087 mGy-cm FINDINGS: CHEST: LUNGS: 8 mm nodule right middle lobe on image 228. No focal consolidation. Central airways are patent. PLEURA: No pleural effusion. MEDIASTINUM: Imaged thyroid gland is heterogeneous. No bulky axillary, hilar or mediastinal lymphadenopathy. Great vessels are of normal caliber. Heart size is normal. No pericardial effusion. CORONARY ARTERY CALCIFICATION: Moderate. CHEST WALL: No acute abnormality. ABDOMEN AND PELVIS: ABDOMINAL AND PELVIC WALL: No acute abnormality. LIVER AND BILIARY TREE: The liver is normal in size and contour. No focal hepatic lesion. No biliary ductal dilatation. GALLBLADDER: Surgically absent. PANCREAS: No ductal dilatation. SPLEEN: Not enlarged. ADRENAL GLANDS: No adrenal mass. KIDNEYS AND URETERS: There is asymmetric atrophy of the left kidney. Postprocedural changes involving the lateral upper pole of the left kidney. Zone of ablation measures 1.4 x 1.5 cm. Left perinephric stranding. No organized fluid collection. No left hydronephrosis. 2.1 cm hypodensity lower pole right kidney that is hyperdense on precontrast imaging demonstrates no significant enhancement. This likely represents a proteinaceous or hemorrhagic cyst. No right hydronephrosis. GASTROINTESTINAL TRACT: Small and large bowel loops are of normal caliber. No small bowel obstruction. Appendix is within normal limits. VASCULAR: Severe atherosclerotic changes of the abdominal aorta. LYMPH NODES: No bulky lymphadenopathy. FREE FLUID: No free fluid. BLADDER: Unremarkable. PELVIC VISCERA: Unremarkable. OSSEOUS STRUCTURES: No destructive bone lesions. CT/CT abdomen pelvis wo/w IV con IMPRESSION: Postprocedural changes lateral upper pole left kidney. No organized fluid collection. 8 mm right middle lobe pulmonary nodule. Dedicated chest CT is recommended.
[2023-12-01] MEDS: iohexoL 350 MG/ML 100 ML INFUS..BTL IV (10:56)
[2023-12-02 10:17] LABS: Creatinine POC 0.9 mg/dL (0.5-1.4); GFR POC > 60
== END 2023-12-01 10:18 | disposition home or self-care (01) ==
LOC: HO.CT 10:17
PROVIDERS: PCP Internal Medicine; Visit Provider Nurse Practitioner Family
DX: C64.9 Malignant neoplasm of unspecified kidney, except renal pelvis (principal)
CPT/HCPCS: 71260; 74178; 82565; Q9967

== ENCOUNTER 2023-12-09 08:24 | Outpatient (AMB) | payer MEDICARE, SELFPAY ==
--- NOTE | 2023-12-09 08:25 | MHC.OFFVIS ---
Intake Intake Visit Reasons: 6m/CT/lab Intake Note: Patient presents for follow up visit for Renal Cell Carcinoma, CT scan and lab results Imagin12/01/23 Urology Medication: none Blood Thinner: none Mine Superintendent Required: No Accompanied by: Self / Same As Patient Allergies codeine [Codeine] Allergy (Severe, Verified 12/09/23 22:55) DIFFICULTY BREATHING Penicillins Adverse Reaction (Intermediate, Verified 12/09/23 22:55) stomach upset semaglutide [From Ozempic] Adverse Reaction (Verified 12/09/23 22:55) Vomiting Medication List - Last Reconciled 12/09/23 by YANETH Simpson adalimumab (Humira(CF) Pen) 40 mg (0.4 mL) subcut Q2W 56 days albuterol sulfate 90 mcg/actuation (ProAir HFA) 2 puffs inhalation Q6H PRN blood sugar diagnostic (Light Blue OpticsTouch Ultra Test strips) 3x daily blood-glucose meter,continuous (Dexcom G7 Nitroglycerin Separator Operator) As directed blood-glucose sensor (Dexcom G7 Sensor device) As directed change every 10 days bumetanide 1 mg PO DAILY calcium carbonate (Calcium) 600 mg PO BID gabapentin (Neurontin) 300 mg PO BEDTIME insulin glargine U-300 conc (Toujeo Max U-300 SoloStar) 40 units (0.1333 mL) subcut BEDTIME insulin lispro Inject up to 70 units with patch pump daily subcutaneously subcutaneously daily; lansoprazole (Prevacid 24Hr) 15 mg PO DAILY leflunomide 10 mg PO DAILY lisinopril 20 mg PO DAILY 30 days pen needle, diabetic Once a day pen needle, diabetic (Easy Comfort Pen [place]) As directed once a day sodium zirconium cyclosilicate (Lokelma) 5 grams PO Q OTHER DAY sub-q insulin device, 40 unit (V-GO 40 device) USE DIRECTED HPI HPI Comments History of Present Illness Details Paola is a pleseant 73 year old female patient of Dr. Yan. She has a H CKD stage 3, diabetic retinopathy, dyslipidemia, essential hypertenstion, IDDM, obesity, osteopenia, postlaminectomy syndrome, spinal stenosis of lumbar region with radiculopathy, and spondylosis of lumbar spine. She presents to the office today for follow-up of her clear cell renal cell carcinoma. Patient is status post renal biopsy and cryoablation on 05/27. Recent CT of the chest as well as abdomen results reviewed with the patient today. 8 mm nodule right mid lobe no focal consolidation. Postprocedural changes involving the lateral upper pole of the left kidney. Zone ablation approximately 1.5 cm no left-sided hydronephrosis. 2.1 cm hypodensity lower pole right kidney that is hyperdense on precontrast imaging demonstrates no significant enhancement. This likely represents a proteinaceous or hemorrhagic cyst. No right hydronephrosis per radiology report. Bladder unremarkable. Patient with PT1A renal cell carcinoma [place] grade 3. Discussed referral to pulmonology for further assessment evaluation of 8 mm right mid lobe nodule. She otherwise denies any bothersome urinary issues or concerns. She reports to be doing and feeling well. She reports she continues to follow up with Oncology. In office urinalysis results reviewed with the patient today. When asked she denies urinary urgency, urinary frequency, incontinence, nocturia, hematuria, dysuria, foul smelling urine, changes to urinary stream, flank pain, fever, and or chills. She is happy with her current voiding parameters. She otherwise offers no issues or concerns at this time. [facility] Medical History Trochanteric bursitis of both hips Leg pain, bilateral Herpes zoster vaccination declined COVID-19 vaccine dose declined Diabetic retinopathy Tubular adenoma of colon Osteopenia History of severe acute respiratory syndrome coronavirus 2 (SARS-CoV-2) disease Obesity due to excess calories 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 Postlaminectomy syndrome MGUS (monoclonal gammopathy of unknown significance) 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 mellitus) Diabetic retinopathy associated with type 2 diabetes mellitus CKD (chronic kidney disease) stage 3, 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 GERD (gastroesophageal reflux disease) Type 2 diabetes mellitus with diabetic polyneuropathy Essential hypertension Dyslipidemia Surgical History Hx of colonoscopy Hx laparoscopic cholecystectomy Hx of tonsillectomy Hx of cataract surgery History of back surgery Family History Mother Diabetes CVD (cardiovascular disease) HTN (hypertension) Father Hodgkin disease Brother Hodgkin disease Sister Pancreatic cancer Sister Lung cancer Non-Hodgkin lymphoma Paternal Uncle Colon cancer Social History Household Members: None Housing: Condominium Alcohol intake: never Patient Tobacco Use Status: Former Tobacco user Tobacco use type: Cigarette Cigarettes Per Day: 50 Years Smoked: 20 e-Cigarette/Vaping Use: Never Used Advance Directives Date on File: 02/08/22 service: No Current occupational status: retired Cognitive needs: No Hearing needs: No Vision needs: Yes Review of Systems Const Reports as per HPI Eyes Reports no additional complaints ENT Reports no additional complaints Card Reports as per HPI Resp Reports no additional complaints GI Reports as per HPI Reports as per HPI Musc Reports as per HPI Neuro Reports as per HPI Psych Reports no additional complaints Endo Reports as per HPI Eduardo/Lymph Reports no additional complaints Aller/Immun Reports no additional complaints Physical Exam Const General: cooperative, healthy appearing, comfortable, no acute distress, well developed, alert and awake Nutritional Appearance: overweight Orientation/consciousness: patient oriented x3 Limitations: no limitations HEENT Head: Yes normal to inspection, Yes normocephalic and Yes atraumatic Ears: hearing grossly normal bilaterally Eyes General: appearance normal, both eyes and all related structures Neck Neck: Yes normal visual inspection and Yes trachea midline Chest Chest palpation & inspection: normal inspection of the chest Resp Effort & Inspection: normal respiratory effort and able to speak in complete sentences Cardio Rate: regular rate GI Inspection: Yes normal to inspection General: Yes no CVA tenderness Back/Spine/Pelvis Back: no CVA tenderness Skin General skin exam: no rashes or lesions noted Neuro General: patient oriented x3 Extrem General: Yes normal to inspection Psych Appearance: grossly normal and well kempt Mental Status: mental status grossly normal Speech and movement: Normal speech and movement present and Clear speech present Affect: normal affect Attitude: cooperative Thought process: Normal thought process present Thought content: Normal thought content present Insight: Good insight present (Psych) Judgement: Good judgement present (Psych) Results AMB Urinalysis, Automated UA Leukoctes 70 Mary/uL Last Edit by Amber Parnell on 12/09/23 08:45 UA Nitrite Negative Last Edit by Amber Parnell on 12/09/23 08:45 UA Urobilinogen 0.2 mg/dL Last Edit by Amber Parnell on 12/09/23 08:45 UA Protein 0 mg/dL Last Edit by Amber Parnell on 12/09/23 08:45 UA pH 6.0 Last Edit by Amber Parnell on 12/09/23 08:45 UA Blood 0 Rajinder/uL Last Edit by Amber Parnell on 12/09/23 08:45 UA Specific [place] 1.025 Last Edit by Amber Parnell on 12/09/23 08:45 UA Ketone Negative Last Edit by Amber Parnell on 12/09/23 08:45 UA Bilirubin 0 mg/dL Last Edit by Amber Parnell on 12/09/23 08:45 UA Glucose 0 mg/dL Last Edit by Amber Parnell on 12/09/23 08:45 Results Reviewed Results Reviewed: Laboratory Last Values Urine pH (Auto) 6.0 12/09/23 08:26 Specific [place] (Auto) 1.025 12/09/23 08:26 Urine Protein (Auto) 0 mg/dL 12/09/23 08:26 Glucose (UA)(Auto) 0 mg/dL 12/09/23 08:26 Urine Ketones (Auto) Negative 12/09/23 08:26 Urine Blood (Auto) 0 Rajinder/uL 12/09/23 08:26 Urine Nitrite (Auto) Negative 12/09/23 08:26 Urine Bilirubin (Auto) 0 mg/dL 12/09/23 08:26 Urine Urobilinogen (Auto) 0.2 mg/dL 12/09/23 08:26 Leukocyte Esterase (Auto) 70 Mary/uL 12/09/23 08:26 Date of Service: 12/01/23 EXAMINATION: CT CHEST, ABDOMEN AND PELVIS WITH CONTRAST FINDINGS: CHEST: LUNGS: 8 mm nodule right middle lobe on image 228. No focal consolidation. Central airways are patent. PLEURA: No pleural effusion. MEDIASTINUM: Imaged thyroid gland is heterogeneous. No bulky axillary, hilar or mediastinal lymphadenopathy. Great vessels are of normal caliber. Heart size is normal. No pericardial effusion. CORONARY ARTERY CALCIFICATION: Moderate. CHEST WALL: No acute abnormality. ABDOMEN AND PELVIS: ABDOMINAL AND PELVIC WALL: No acute abnormality. LIVER AND BILIARY TREE: The liver is normal in size and contour. No focal hepatic lesion. No biliary ductal dilatation. GALLBLADDER: Surgically absent. PANCREAS: No ductal dilatation. SPLEEN: Not enlarged. ADRENAL GLANDS: No adrenal mass. KIDNEYS AND URETERS: There is asymmetric atrophy of the left kidney. Postprocedural changes involving the lateral upper pole of the left kidney. Zone of ablation measures 1.4 x 1.5 cm. Left perinephric stranding. No organized fluid collection. No left hydronephrosis. 2.1 cm hypodensity lower pole right kidney that is hyperdense on precontrast imaging demonstrates no significant enhancement. This likely represents a proteinaceous or hemorrhagic cyst. No right hydronephrosis. GASTROINTESTINAL TRACT: Small and large bowel loops are of normal caliber. No small bowel obstruction. Appendix is within normal limits. VASCULAR: Severe atherosclerotic changes of the abdominal aorta. LYMPH NODES: No bulky lymphadenopathy. FREE FLUID: No free fluid. BLADDER: Unremarkable. PELVIC VISCERA: Unremarkable. OSSEOUS STRUCTURES: No destructive bone lesions. IMPRESSION: Postprocedural changes lateral upper pole left kidney. No organized fluid collection. 8 mm right middle lobe pulmonary nodule. Dedicated chest CT is recommended. Assessment & Plan Assessment & Plan (1) Clear cell renal cell carcinoma: Comment: Mass was treated with ablative procedure May 2023 Code(s): C64.9 - Malignant neoplasm of unspecified kidney, except renal pelvis (2) Pulmonary nodule: Code(s): R91.1 - Solitary pulmonary nodule Plan In office urinalysis results reviewed with the patient today; as noted above. Recent CT of the abdomen as well as chest results reviewed with the patient today Will refer to pulmonology for further assessment evaluation of 8 mm right mid lobe nodule noted on CT. Discussed continuation of surveillance monitoring with serial imaging with CT at 18 months and 5 years as well as renal ultrasounds. She denies any bothersome urinary issues or concerns. She reports to be happy with current voiding parameters. Renal ultrasound in 6 months Follow-up in 6 months with imaging to be completed prior; or sooner with any issues, concerns, and or questions. Orders: Orders US renal BI 6 Months N20.0 - Calculus of kidney AMB Urinalysis Automated Today Z13.9 - Encounter for screening, unspecified Referrals Pulmonology Referral C64.9 - Malignant neoplasm of unspecified kidney, except renal pelvis, R91.1 - Solitary pulmonary nodule Patient Instructions: The patient had an opportunity to ask questions regarding the treatment plan. All questions were answered. Physical exam, labs, and imaging were discussed and reviewed in detail. As well as risks, benefits, and discussion of treatment choices. No major barriers to understanding were identified. The patient expressed understanding and agreement with the above treatment plan. The patient was made aware they should contact our office by phone for worsening of their current condition, the appearance of new symptoms, or with any questions or concerns. Compliance is encouraged with any medications and follow up testing that is ordered. It is a privilege to be allowed the opportunity to participate in? your urological care.? Again, if you have any questions or concerns If you have any questions or concerns please do not hesitate to contact me. The office is [phone]. This note is constructed using voice recognition software. While every effort has been made to ensure accuracy retail customer service specialist errors may have been included. Yours sincerely, YANETH Simpson Coding Level of Care Code Est Pt Level 4 (05021) Diagnoses Clear cell renal cell carcinoma C64.9 Pulmonary nodule R91.1
== END 2023-12-09 09:12 | disposition home or self-care (01) ==
PROVIDERS: PCP Internal Medicine; Visit Provider Nurse Practitioner Family
DX: C64.9 Malignant neoplasm of unspecified kidney, except renal pelvis (principal); R91.1 Solitary pulmonary nodule
CPT/HCPCS: 99214

== ENCOUNTER → 2023-12-09 08:24 | Outpatient (BNVA) | payer MEDICARE, SELFPAY | PROVIDERS: PCP Internal Medicine; Visit Provider Nurse Practitioner Family | DX: C64.9 Malignant neoplasm of unspecified kidney, except renal pelvis (principal); R91.1 Solitary pulmonary nodule | CPT/HCPCS: 81003; 99212 ==

== ENCOUNTER 2023-12-18 10:23 | Outpatient (AMB) | payer MEDICARE, SELFPAY ==
--- NOTE | 2023-12-18 10:26 | A.OFFPC_ITS ---
Vital Signs 12/18/23 10:27 Height 5 ft 2 in Weight 226 lb BMI 41.3 BP 136/70 Blood Pressure Location Lt brachial Position Sitting Pulse 79 Pulse Source Pulse Oximeter Pulse Oximetry (%) 99 Oxygen Delivery Method Room Air Intake Visit Reasons: 3 month fu Intake Note: Pt is here today for 3 months follow up visit. Allergies codeine [Codeine] Allergy (Severe, Verified 12/20/23 04:13) DIFFICULTY BREATHING Penicillins Adverse Reaction (Intermediate, Verified 12/20/23 04:13) stomach upset semaglutide [From Ozempic] Adverse Reaction (Verified 12/20/23 04:13) Vomiting Medication List - Last Reconciled 12/20/23 by Lyndsay Yan MD adalimumab (Humira(CF) Pen) 40 mg (0.4 mL) subcut Q2W 56 days albuterol sulfate 90 mcg/actuation (ProAir HFA) 2 puffs inhalation Q6H PRN azithromycin For 250 mg dose pack: take 500 mg today (day 1), then 250 mg for 4 days (days 2-5) PO blood sugar diagnostic (PaymentOneTouch Ultra Test strips) 3x daily blood-glucose meter,continuous (DexRoobiq G7 Relationship Mgr) As directed blood-glucose sensor (Dexcom G7 Sensor device) As directed change every 10 days bumetanide 1 mg PO DAILY calcium carbonate (Calcium) 600 mg PO BID gabapentin (Neurontin) 300 mg PO BEDTIME insulin glargine U-300 conc (Toujeo Max U-300 SoloStar) 40 units (0.1333 mL) subcut BEDTIME insulin lispro Inject up to 70 units with patch pump daily subcutaneously subcutaneously daily; lansoprazole (Prevacid 24Hr) 15 mg PO DAILY leflunomide 10 mg PO DAILY lisinopril 20 mg PO DAILY 30 days pen needle, diabetic Once a day pen needle, diabetic (Easy Comfort Pen Matador) As directed once a day pravastatin 40 mg PO BEDTIME sodium zirconium cyclosilicate (Lokelma) 5 grams PO Q OTHER DAY sub-q insulin device, 40 unit (V-GO 40 device) USE DIRECTED tizanidine 4 mg PO BID PRN Tobacco use date assessed: 12/18/23 Fall risk assessment: No Falls in past year Last assessed Fall Risk: 12/18/23 Dental Screening Dental Screen Date: 12/18/23 Did you have a dental visit in the last 12 months?: Yes Did you have a dental problem in the last 6 months where you did not have access to dental care?: No Was dental information given to patient?: Patient has dentist HPI 3 month fu HPI Details 73 year-old lady with diabetes mellitus with neuropathy, history of clear cell renal carcinoma, dyslipidemia, chronic kidney disease arthritis, spinal stenosis of lumbar region with radiculopathy, monoclonal gammopathy, with family history of Red syndrome, here today follow-up on her lipids. She had recent fasting labs done which showed LDL cholesterol not at goal at 136 mg/dL. She is currently taking pravastatin 40 mg at bedtime, but admits to not following her recommended diet and not getting any exercise at will due to recurrent pain and muscle spasm in her left lower leg the past few weeks. Complains of feeling on occasional tightness and a pulling sensation in her left calf which sometimes would radiate down her left ankle and sometimes up to her left knee. No history of trauma has been massaging left leg with arthritis cream which affords only temporarily relief. She is also complaining of frontal headaches accompanied by pain over cheeks present now for the last several days, no accompanying fever, no cough no chills but feels very congested. [facility] Medical History Trochanteric bursitis of both hips Leg pain, bilateral Herpes zoster vaccination declined COVID-19 vaccine dose declined Diabetic retinopathy Tubular adenoma of colon Osteopenia History of severe acute respiratory syndrome coronavirus 2 (SARS-CoV-2) disease Obesity due to excess calories 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 Postlaminectomy syndrome MGUS (monoclonal gammopathy of unknown significance) 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 mellitus) Diabetic retinopathy associated with type 2 diabetes mellitus CKD (chronic kidney disease) stage 3, GFR 30-59 ml/min 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 GERD (gastroesophageal reflux disease) Type 2 diabetes mellitus with diabetic polyneuropathy Essential hypertension Dyslipidemia Surgical History Hx of colonoscopy Hx laparoscopic cholecystectomy Hx of tonsillectomy Hx of cataract surgery History of back surgery Family History Mother Diabetes CVD (cardiovascular disease) HTN (hypertension) Father Hodgkin disease Brother Hodgkin disease Sister Pancreatic cancer Sister Lung cancer Non-Hodgkin lymphoma Paternal Uncle Colon cancer Social History Household Members: None Housing: Condominium Alcohol intake: never Patient Tobacco Use Status: Former Tobacco user Tobacco use type: Cigarette Cigarettes Per Day: 50 Years Smoked: 20 e-Cigarette/Vaping Use: Never Used Advance Directives Date on File: 02/08/22 service: No Current occupational status: retired Cognitive needs: No Hearing needs: No Vision needs: Yes Questionnaire PHQ-9 Over the last 2 weeks, how often have you been bothered by any of the following problems? 1. Little interest or pleasure in doing things: not at all 2. Feeling down, depressed, or hopeless: not at all 3. Trouble falling or staying asleep, or sleeping too much: not at all 4. Feeling tired or having little energy: not at all 5. Poor appetite or overeating: not at all 6. Feeling bad about yourself - or that you are a failure or have let yourself or your family down: not at all 7. Trouble concentrating on things, such as reading the newspaper or watching television: not at all 8. Moving or speaking so slowly that other people could have noticed. Or the opposite - being so fidgety or restless that you have been moving around a lot more than usual: not at all 9. Thoughts that you would be better off or of hurting yourself in some way: not at all Total score: 0 Depression Screening Interpretation: Negative Depression Screening Done: Yes 65290 - PHQ-9 Billing: Yes Source: Developed by Drs. Bang Wilkerson, Ivett Sidhu, Alejandro Momin and colleagues, with an educational pretty from [employer]. Thrive Questionnaire Date Thrive assessed: 12/18/23 I am a: Patient What is your living situation today?: I have a steady place to live Within the past 12 months, did the food you bought not last and you didn't have the money to get more?: Never true Within the past 12 months, did you worry whether your food would run out before you got money to buy more?: Never true Do you have trouble paying for medicines?: No Do you have trouble getting transportation to medical appointments?: No Do you have trouble paying your heating and electricity bill?: No Do you have trouble taking care of your child, family member or friend?: No Do you have trouble with day-to-day activities such as bathing, preparing meals, shopping, managing finances, etc.?: No Are you currently unemployed and looking for a job?: No Are you interested in more education?: No Please select the resources that you would like help with: None THRIVE Score: 0 AUDIT C Alcohol Use Questionnaire (AUDIT-C) 1. How often do you have a drink containing alcohol?: Never 3. How often do you have six or more drinks on one occasion?: Never Total Score: 0 JENY-7 AMB Questionnaire JENY-7 Date JENY - 7 assessed: 12/18/23 Feeling nervous, anxious, or on edge: 0 = Not at all Not being able to stop or control worryin = Not at all Worrying too much about different things: 0 = Not at all Trouble relaxin = Not at all Being so restless that it is hard to sit still: 0 = Not at all Becoming easily annoyed or irritable: 0 = Not at all Feeling afraid as if something awful might happen: 0 = Not at all Total JENY-7 score (0-4 normal; 5-9 mild; 10-14 moderate; 15-21 severe): 0 Source: Developed by Drs. Bang Wilkerson, Ivett Sidhu, Alejandro Momin and colleagues, with an educational pretty from [employer]. JENY-7 Assessment Billing JENY-7 Assessment Tool: JENY-7 Assessment 81178 Review of Systems Const Reports no additional complaints Eyes Reports no additional complaints ENT Reports as per HPI, Denies vertigo, Denies dizziness, Denies otalgia, Denies nasal discharge, Reports post nasal drip and Denies sore throat Card Reports no additional complaints Resp Reports no additional complaints GI Reports no additional complaints Reports no additional complaints Musc Reports no additional complaints Skin/Breast Denies rash Neuro Reports no additional complaints, Denies vertigo and Denies dizziness Psych Reports no additional complaints Endo Reports no additional complaints Eduardo/Lymph Reports no additional complaints Aller/Immun Reports no additional complaints Physical exam (Primary Care) Vital Signs: Last Vital Signs Pulse 79 12/18/23 10:27 BP 136/70 12/18/23 10:27 Pulse Ox 99 12/18/23 10:27 Oxygen Delivery Method Room Air 12/18/23 10:27 BMI result Body Mass Index 41.3 Tobacco/Smoking Status: Tobacco use Status Tobacco use date assessed 12/18/23 12/18/23 10:31 Patient Tobacco Use Status Former Tobacco user 12/18/23 10:31 Tobacco use type Cigarette 12/18/23 10:31 e-Cigarette/Vaping Use Never Used 12/18/23 10:31 PHQ-9: PHQ-9 Score PHQ-9: Total score 0 12/18/23 10:53 Depression Screening Interpretation: Negative Thrive Assessment: Date of Thrive Assessment Date Thrive assessed 12/18/23 12/18/23 10:31 Const General: no acute distress Nutritional Appearance: obese Orientation/consciousness: patient oriented x3 Neck Neck: Yes full ROM, Yes no lymphadenopathy and Yes supple Resp Auscultation: clear to auscultation bilaterally Cardio Other: S1-S2 present regular rate and rhythm GI Palpation (GI): Soft to palpation, nontender and no masses General: Yes no CVA tenderness Back/Spine/Pelvis Back: no CVA tenderness Skin General skin exam: no rashes or lesions noted Neuro General: patient oriented x3, gait normal, tone normal, moves all extremities, Normal light touch and pain sensation, no focal motor deficits and CN's II-XI intact bilaterally Extrem General: Yes full ROM, Yes no joint enlargement, Yes no calf tenderness and Yes normal gait Results Reviewed Results Reviewed: Name: Paola Vargas Age/Sex: 73/F : 1950 Unit#: [id number] Attend Dr: Oralia Puentes MD Re12/07/23 Status: REG RC Location: [facility] Disch: SPEC : [id number] GUI: 12/07/23 STATUS: COMP REQ : [id number] RECD: 12/07/[address]: Oralia Puentes MD COMP: 12/07/23 ENTERED: 12/07/[address]: Lyndsay Yan MD ORDERED: CBC Auto Diff Test Result Flag Reference WBC 8.9 4.8-10.8 X10*3/uL RBC 4.64 4.20-5.50 X10*6/uL HGB 12.9 12.0-16.0 g/dl HCT 40.1 37.0-47.0 % MCV 86.4 80.0-98.0 fL MCH 27.8 27.0-33.0 pg MCHC 32.2 31.0-35.0 g/dl RDW 14.9 11.0-16.0 % PLT 290 160-400 X10*3/uL MPV 9.8 9.4-12.3 fL Neut Pct Auto 63.0 45-73 % ImGran Pct Auto 0.9 H 0.0-0.4 % Lymp Pct Auto 21.9 20-40 % Inyo Pct Auto 10.4 2-11 % Eos Pct Auto 2.9 0-4 % Baso Pct Auto 0.9 0-2 % NRBC Pct Auto 0.0 0.0-0.2 /100WBC ANC Neut Abs # 5.6 2.0-8.3 x10*3/uL ImGran Abs Auto 0.08 H 0.00-0.03 X10*3/uL Lymph Abs Auto 1.9 1.2-4.9 X10*3/uL Inyo Abs Auto 0.9 0.1-1.2 X10*3/uL Eos Abs Auto 0.3 0.0-0.4 X10*3/uL Baso Abs Auto 0.1 0.0-0.2 X10*3/uL NRBC Abs Auto 0.000 0.0-0.012 X10*3/uL Name: Paola Vargas Age/Sex: 73/F : 1950 Unit#: [id number] Attend Dr: Oralia Puentes MD Re12/07/23 Status: REG RCR [facility] Disch: SPEC : [id number] GUI: 12/07/23 STATUS: COMP REQ : [id number] RECD: 12/07/[address]: Oralia Puentes MD COMP: 12/07/23-1121 ENTERED: 12/07/23-[address] [facility] [address]: Lyndsay Yan MD ORDERED: CMP Test Result Flag Reference Sodium 141 135-145 mmol/L Potassium 5.2 H 3.3-5.1 mmol/L CL 104 96-108 mmol/L CO2 28 22-29 mmol/L Gap 14 12-20 BUN 42 H 9-16 mg/dL Creat 1.52 H 0.5-1.4 mg/dL Estimated CrCl 36.5 Provided height and weight: 157.48 cm, 100.2 kg. eGFR (calculated from the MDRD study equation) and eCrCl (calculated from the Cockcroft-Gault equation) are based on different parameters and may not yield comparable results. If eCrCl result is absurd, please check patient's height/weight. EGFR 34 NOTE: For -Bangladeshi individuals, multiply the result by 1.210. Chronic Kidney Disease: Estimated GFR < 60 mL/min/1.73m2 Severe Kidney Disease: Estimated GFR < 15 mL/min/1.73m2 Glucose, Random 58 *L 60-115 mg/dL Critical value for test(s): GLUC Results called to and read back by: AMANDA Person calling:RAENKASEY Date:12/07/23 Time:1120 CA 10.0 # 8.4-10.2 mg/dL Total Bili 0.3 0.0-1.0 mg/dL AST (GOT) 18 5-31 U/L ALT (GPT) 16 0-31 U/L Protein, Total 7.5 6.5-8.0 g/dL Alb 4.1 3.5-5.0 g/dL Alk Phos 101 39-117 U/L Name: Paola Vargas Age/Sex: 73/F : 1950 Unit#: [id number] Attend Dr: Lyndsay Yan MD Re11/23/23 Status: DEP REF [facility] Disch: SPEC : [id number] GUI: 11/23/23 STATUS: COMP REQ : [id number] RECD: 11/23/23-[address]: Lyndsay Yan MD COMP: 11/23/23-1250 ENTERED: 11/23/23-[address] [facility] [address]: Soni Victoria [facility]- ORDERED: BUN, Creat, Lipid Panel, Vitamin D 25-OH Test Result Flag Reference BUN 52 H 9-16 mg/dL Creat 1.56 H 0.5-1.4 mg/dL EGFR 33 NOTE: For -Bangladeshi individuals, multiply the result by 1.210. Chronic Kidney Disease: Estimated GFR < 60 mL/min/1.73m2 Severe Kidney Disease: Estimated GFR < 15 mL/min/1.73m2 Triglyceride 58 <150 mg/dL Desirable Triglyceride: less than 150 mg/dL Borderline High Triglyceride 150-199 mg/dL High Triglyceride: 200-499 mg/dL Very High Triglyceride: greater than or equal to 5OO mg/dL Cholesterol 214 H <200 mg/dL Desirable Cholesterol: less than 200 mg/dL Borderline High Cholesterol: 200-239 mg/dL High Cholesterol: greater than 239 mg/dL LDL Calculated 136 H <100 mg/dL Desirable LDL: less than 100 mg/dL Near Optimal/Above Optimal LDL: 110-129 mg/dL Borderline High LDL: 130-159 mg/dL High LDL: 160-189 mg/dL Very High LDL: greater than or equal to 190 mg/dL HDL 67 >40 mg/dL Desirable HDL: greater than 40 mg/dL Note: This HDL assay may give artificially low results in patients with liver disease. Vit D 25-OH Tot 45.2 >30 ng/mL Health Based Reference Values* < 20 ng/mL Deficient 20-30 ng/mL Insufficient > 30 ng/mL Sufficient Assessment and Plan Assessment & Plan (1) Dyslipidemia: Code(s): E78.5 - Hyperlipidemia, unspecified Plan: Reviewed recent fasting lipid panel results with patient which showed elevated LDL cholesterol at 136 mg/dL, goal less than 100 mg/dL since she is a diabetic. Will continue on current dose of pravastatin 40 mg at bedtime, but stressed importance of following recommended diet and getting some form of exercise. Will repeat another fasting lipid panel in 3 months and will make adjustments in her treatment as needed (2) Sinusitis, acute: Code(s): J01.90 - Acute sinusitis, unspecified Qualifiers: Sinusitis location: maxillary Recurrence: non-recurrent Qualified Code(s): J01.00 - Acute maxillary sinusitis, unspecified Plan: Prescription sent for azithromycin Dosepak to take as directed, return to the clinic if no improvement of symptoms after Thursday (3) Muscle strain of left lower leg: Code(s): S86.912A - Strain of unspecified muscle(s) and tendon(s) at lower leg level, left leg, initial encounter Qualifiers: Encounter type: subsequent encounter Qualified Code(s): S86.912D - Str ain of unspecified muscle(s) and tendon(s) at lower leg level, left leg, subsequent encounter Plan: Unable to palpate any mass, nontender to palpation. Prescription sent for tizanidine 4 mg per tablet , instructed to take 1 tablet initially at bedtime as needed for painful muscle spasm in her leg, and may increase it to twice a day dosing as needed. Patient cautioned that this might make her feel lightheaded, avoid making any abrupt changes in position when taking this, may decrease dose to 2 mg or half a tablet if developing any side effects of lightheadedness, disequilibrium, or excessive sleepiness. Orders: Orders Alanine Aminotransferase 06/12/24 E78.5 - Hyperlipidemia, unspecified Lipid Panel 06/12/24 E78.5 - Hyperlipidemia, unspecified Aspartate Amino Transferase 06/12/24 E78.5 - Hyperlipidemia, unspecified Medications: New azithromycin For 250 mg dose pack: take 500 mg today (day 1), then 250 mg for 4 days (days 2-5) PO 6 tabs 0RF tizanidine 4 mg PO BID PRN 20 tabs 0RF muscle spasticity Refilled pravastatin 40 mg PO BEDTIME 90 tabs 1RF E78.5 - Hyperlipidemia, unspecified Coding Level of Care Code Est Pt Level 4 (04256) Diagnoses Dyslipidemia E78.5 Acute non-recurrent maxillary sinusitis J01.00 Sinusitis location: maxillary Recurrence: non-recurrent Muscle strain of left lower leg, subsequent encounter S86.912D Encounter type: subsequent encounter Additional Codes JENY-7 Assessment Billing - JENY-7 Assessment Tool: JENY-7 Assessment 29371 ([id number])
[2023-12-18 10:27] VITALS: BP 136/70; PULSE 79; O2SAT 99; BMI 41.3
== END 2023-12-18 11:09 | disposition home or self-care (01) ==
PROVIDERS: PCP Internal Medicine; Visit Provider Internal Medicine
DX: E78.5 Hyperlipidemia, unspecified (principal); J01.00 Acute maxillary sinusitis, unspecified; S86.912D Strain of unspecified muscle(s) and tendon(s) at lower leg level, left leg, subsequent encounter
CPT/HCPCS: 99214

== ENCOUNTER 2023-12-24 09:19 | Outpatient (AMB) | payer MEDICARE, SELFPAY ==
--- NOTE | 2023-12-24 09:26 | A.OFFVIS_ITS ---
Intake Vital Signs 3 12/24/23 09:27 Height 5 ft 2 in Weight 228 lb 2.855 oz BMI 41.7 BP 136/70 Blood Pressure Location Rt brachial Position Sitting Pulse 82 Pulse Source Pulse Oximeter Pulse Oximetry (%) 96 Oxygen Delivery Method Room Air Intake Visit Reasons: Pulmonary nodule Allergies codeine [Codeine] Allergy (Severe, Verified 12/24/23 09:28) DIFFICULTY BREATHING Penicillins Adverse Reaction (Intermediate, Verified 12/24/23 09:28) stomach upset semaglutide [From Ozempic] Adverse Reaction (Verified 12/24/23 09:28) Vomiting HPI HPI Comments 2 History of Present Illness0 Details The patient is here for pulmonary evaluation. The patient is a 73 year woman with a known history rheumatoid arthritis in addition to renal cell cancer status post cryoablation who apparently had a CT scan demonstrating pulmonary nodule. The patient has been doing well from a respiratory status denied any chest pain or shortness of breath. The patient does complaint of some sciatic like discomfort at this time but she has had this before. Moderate severity. It is limiting her walk. She did have a CT scan of the chest back in 12/01/2023 which we personally. Even after so many years of smoking and exposure to metal fumes while working in the [employer] the patient's lung parenchyma actually looks pretty healthy. The patient does have a smooth border 8 mm pulmonary nodule noted on the right hemithorax. In view of her renal cell carcinoma we did have her come in urgently to further evaluate. The patient had multiple imaging studies in the past it even a CTA dated back to 2016. I did also personally reviewed this CT scan with the patient. She has a very similar nodule in the right hemithorax measuring around 7.5 mm in size. Issues slightly larger in size compared to the measurement from this recent CT scan. Is very unlikely that this nodules related to her renal cell since she has had a for many years. Will go ahead and monitor this nodule fairly closely so therefore have her come back in 6 months with a repeat CT scan. If the patient develops any worsening symptoms prior to that she will call for an earlier assessment. [facility] Medical History Trochanteric bursitis of both hips Leg pain, bilateral Herpes zoster vaccination declined COVID-19 vaccine dose declined Diabetic retinopathy Tubular adenoma of colon Osteopenia History of severe acute respiratory syndrome coronavirus 2 (SARS-CoV-2) disease Obesity due to excess calories 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 Postlaminectomy syndrome MGUS (monoclonal gammopathy of unknown significance) 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 mellitus) Diabetic retinopathy associated with type 2 diabetes mellitus CKD (chronic kidney disease) stage 3, GFR 30-59 ml/min 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 GERD (gastroesophageal reflux disease) Type 2 diabetes mellitus with diabetic polyneuropathy Essential hypertension Dyslipidemia Surgical History Hx of colonoscopy Hx laparoscopic cholecystectomy Hx of tonsillectomy Hx of cataract surgery History of back surgery Family History Mother Diabetes CVD (cardiovascular disease) HTN (hypertension) Father Hodgkin disease Brother Hodgkin disease Sister Pancreatic cancer Sister Lung cancer Non-Hodgkin lymphoma Paternal Uncle Colon cancer Social History Household Members: None Housing: Condominium Alcohol intake: never Patient Tobacco Use Status: Former Tobacco user Tobacco use type: Cigarette Cigarettes Per Day: 50 Years Smoked: 20 e-Cigarette/Vaping Use: Never Used Advance Directives Date on File: 02/08/22 service: No Current occupational status: retired Cognitive needs: No Hearing needs: No Vision needs: Yes Review of Systems Const Reports no additional complaints Eyes Reports no additional complaints ENT Reports as per HPI, Denies vertigo, Denies dizziness, Denies otalgia, Denies nasal discharge, Reports post nasal drip and Denies sore throat Card Reports no additional complaints Resp Reports no additional complaints GI Reports no additional complaints Reports no additional complaints Musc Reports no additional complaints Skin/Breast Denies rash Neuro Reports no additional complaints, Denies vertigo and Denies dizziness Psych Reports no additional complaints Endo Reports no additional complaints Eduardo/Lymph Reports no additional complaints Aller/Immun Reports no additional complaints Physical Exam Vital Signs: Last Vital Signs Pulse 82 12/24/23 09:27 BP 136/70 12/24/23 09:27 Pulse Ox 96 12/24/23 09:27 Oxygen Delivery Method Room Air 12/24/23 09:27 BMI result Body Mass Index 41.7 Const General: comfortable HEENT Head: Yes normocephalic Neck Neck: Yes supple Chest Chest palpation & inspection: normal inspection of the chest Resp Effort & Inspection: normal respiratory effort Auscultation: clear to auscultation bilaterally Cardio Heart sounds: S1 normal heart sound present and S2 normal heart sound present GI Palpation (GI): Soft to palpation Skin General skin exam: no rashes or lesions noted Extrem General: Yes no clubbing, cyanosis or edema Results Reviewed Results Reviewed: personally review CTA [address] chest 2023. Slight increase in the right sided nodule Assessment & Plan Assessment & Plan (1) Pulmonary nodule: Code(s): R91.1 - Solitary pulmonary nodule (2) Clear cell renal cell carcinoma: Comment: Mass was treated with ablative procedure May 2023 Code(s): C64.9 - Malignant neoplasm of unspecified kidney, except renal pelvis Plan Nodule documented previously in 2025. Will repeat CT chest in 6 months to make sure based on the slight growth F/U in 6 months Orders: Orders 2 CT chest wo IV con 6 Months R91.1 - Solitary pulmonary nodule Coding Level of Care Code New Pt Level 4 (87537) Diagnoses Pulmonary nodule R91.1 Clear cell renal cell carcinoma C64.9 Time Spent (min) 40
[2023-12-24 09:27] VITALS: BP 136/70; PULSE 82; O2SAT 96; BMI 41.7
== END 2023-12-24 09:52 | disposition home or self-care (01) ==
PROVIDERS: PCP Internal Medicine; Visit Provider Hospitalist
DX: R91.1 Solitary pulmonary nodule (principal); C64.9 Malignant neoplasm of unspecified kidney, except renal pelvis
CPT/HCPCS: 99204

== ENCOUNTER → 2023-12-24 09:19 | Outpatient (BNVA) | payer MEDICARE, SELFPAY | PROVIDERS: PCP Internal Medicine; Visit Provider Hospitalist | DX: R91.1 Solitary pulmonary nodule (principal); C64.9 Malignant neoplasm of unspecified kidney, except renal pelvis | CPT/HCPCS: 99202 ==

== ENCOUNTER 2024-01-04 10:11 | Outpatient (REF) | payer MEDICARE, SELFPAY | END 2024-01-04 10:12 | disposition home or self-care (01) | LOC: HO.HMGCLDS 10:11 | PROVIDERS: PCP Internal Medicine; Visit Provider Internal Medicine | DX: Z13.89 Encounter for screening for other disorder (principal) ==

== ENCOUNTER 2024-01-22 09:53 | Outpatient (REF) | payer MEDICARE, SELFPAY ==
[2024-01-22 13:37] LABS: MANUAL DIFF FLAG NO
[2024-01-22 13:49] LABS: Basophils Absolute Auto 0.1 X10*3/uL (0.0-0.2); Basophils Percent Auto 0.8 % (0-2); Eosinophils Absolute Auto 0.2 X10*3/uL (0.0-0.4); Eosinophils Percent Auto 2.5 % (0-4); Hematocrit 39.1 % (37.0-47.0); Hemoglobin 12.3 g/dl (12.0-16.0); Imm Gran Abs Auto 0.08 X10*3/uL (0.00-0.03); Lymphocytes Absolute Auto 1.5 X10*3/uL (1.2-4.9); Mean Corpuscular HGB Conc 31.5 g/dl (31.0-35.0); Mean Corpuscular Hemoglobin 28.3 pg (27.0-33.0); Mean Corpuscular Volume 90.1 fL (80.0-98.0); Mean Platelet Volume 10.8 fL (9.4-12.3); Monocytes Absolute Auto 0.8 X10*3/uL (0.1-1.2); Monocytes Percent Auto 9.9 % (2-11); Neutrophils Absolute Auto 5.2 x10*3/uL (2.0-8.3); Neutrophils Percent Auto 66.8 % (45-73); Platelet Count 300 X10*3/uL (160-400); Red Blood Count 4.34 X10*6/uL (4.20-5.50); Red Cell Distribution Width 14.7 % (11.0-16.0); White Blood Count 7.7 X10*3/uL (4.8-10.8)
[2024-01-22 14:25] LABS: Anion Gap 13 (12-20); Blood Urea Nitrogen 39 mg/dL (9-16); Calcium 9.4 mg/dL (8.4-10.2); Carbon Dioxide 24 mmol/L (22-29); Chloride 109 mmol/L (96-108); Estimated Glomerular Filt Rate 37; Glucose Random 192 mg/dL (60-115); Iron 62 mcg/dL (30-160); Percent Iron Saturation 24 % (15-50); Potassium 4.7 mmol/L (3.3-5.1); Sodium 141 mmol/L (135-145); Total Iron Binding Capacity 263 mcg/dL (228-428); Unsaturated Iron Binding 201 ug/dL; Uric Acid 9.1 mg/dL (2.4-5.7)
[2024-01-22 14:32] LABS: Estimated Average Glucose 137 mg/dL; Hemoglobin A1c % 6.4 % (<6.0)
[2024-01-22 14:34] LABS: Parathyroid Hormone Intact 220.5 pg/mL (8.7-77.1)
[2024-01-22 14:44] LABS: Ferritin 161 ng/mL (10-250)
== END 2024-01-22 09:54 | disposition home or self-care (01) ==
LOC: HO.HMGCLDS 09:53
PROVIDERS: PCP Internal Medicine; Visit Provider Internal Medicine
DX: N18.30 Chronic kidney disease, stage 3 unspecified (principal); D50.8 Other iron deficiency anemias
CPT/HCPCS: 36415; 80048; 82728; 83036; 83540; 83970; 84550; 85025

== ENCOUNTER 2024-02-03 09:21 | Outpatient (AMB) | payer MEDICARE, SELFPAY ==
[2024-02-03 09:23] VITALS: BP 150/58; PULSE 78; BMI 42.1
--- NOTE | 2024-02-03 09:23 | MHC.OFFVIS ---
Vital Signs 02/03/24 09:23 Height 5 ft 2 in Weight 230 lb 6.129 oz BMI 42.1 BP 150/58 H Blood Pressure Location Lt brachial Position Sitting Pulse 78 Pulse Source Pulse Oximeter Intake Visit Reasons: t2dm Intake Note: Patient presents today to follow up on D2MT. Last Diabetic Eye exam: 2021 Last Podiatry Visit: 08/2023 Random Glucose: 111 mg/dl HgA1c: 6.2% 01/04/24 Flame Channeler Required: No Accompanied by: Self / Same As Patient Allergies codeine [Codeine] Allergy (Severe, Verified 02/03/24 09:28) DIFFICULTY BREATHING Penicillins Adverse Reaction (Intermediate, Verified 02/03/24 09:28) stomach upset semaglutide [From Ozempic] Adverse Reaction (Verified 02/03/24 09:) Vomiting HPI Comments Details: Patient is a 73 yo female with DM type 2 diagnosed in her early 40s who presents for continued management of diabetes. T Past medical history: DM2, HTN, HLD, rheumatoid arthritis, , GERD. Micro and macrovascular complications: neuropathy, proliferative retinopathy, nephropathy but no macrovascular disease. Diabetes medications: V-Go 40 and Toujeo 44 units , V-go 40, 3 clicks w/ breakfast, 2 for lunch and 9 for dinner, 1 click for snacks, Jardiance 10 mg stopped Not taking Januvia 50 mg daily. Pt intolerant of Tanzeum and Victoza due to abdominal pain. 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 Ophthalmology evaluation: needs to follow-up this Spring - proliferative diabetic retinopathy, goes twice a year for evaluation Other specialists: pure culture operator - Dr. Santiago, Resin Mixer. Laboratory Tests 06/11/21 09/16/21 09/26/21 12:39 09:05 09:54 Creatinine 1.71 H Estimated GFR 29 Hgb A1c (Clinic) 7.3 H Triglycerides 226 Cholesterol 195 LDL Cholesterol, Calc 96 HDL Cholesterol 54 PFSH Medical History Trochanteric bursitis of both hips Leg pain, bilateral Herpes zoster vaccination declined COVID-19 vaccine dose declined Diabetic retinopathy Tubular adenoma of colon Osteopenia History of severe acute respiratory syndrome coronavirus 2 (SARS-CoV-2) disease Obesity due to excess calories 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 Postlaminectomy syndrome MGUS (monoclonal gammopathy of unknown significance) 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 mellitus) Diabetic retinopathy associated with type 2 diabetes mellitus CKD (chronic kidney disease) stage 3, GFR 30-59 ml/min 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 GERD (gastroesophageal reflux disease) Type 2 diabetes mellitus with diabetic polyneuropathy Essential hypertension Dyslipidemia Surgical History Hx of colonoscopy Hx laparoscopic cholecystectomy Hx of tonsillectomy Hx of cataract surgery History of back surgery Family History Mother Diabetes CVD (cardiovascular disease) HTN (hypertension) Father Hodgkin disease Brother Hodgkin disease Sister Pancreatic cancer Sister Lung cancer Non-Hodgkin lymphoma Paternal Uncle Colon cancer Social History Household Members: None Housing: Condominium Alcohol intake: never Patient Tobacco Use Status: Former Tobacco user Tobacco use type: Cigarette Cigarettes Per Day: 50 Years Smoked: 20 e-Cigarette/Vaping Use: Never Used Advance Directives Date on File: 02/08/22 service: No Current occupational status: retired Cognitive needs: No Hearing needs: No Vision needs: Yes Physical Exam Vital Signs: Last Vital Signs Pulse 78 02/03/24 09:23 BP 150/58 H 02/03/24 09:23 BMI result Body Mass Index 42.1 Absence of Cushingoid features. Absence of acromegalic features. Neck exam reveals nl size thyroid about 15 gms. No thyroid nodules palpable. No carotid bruits present. Lungs CTA. Heart S1 S2, Reg R/R. No M/R/ G. Skin exam reveals absence of vitiligo or acanthosis nigricans. Abdominal exam reveals Soft NT/ND with NA BS. No organomegaly present. Neck Other: . Extrem Other: Visual exam of foot performed. No ulcerations or open lesions. No onchomycosis, no callouses.Pulses 2 + distally Sensation intact to monofilament exam. Vibratory sensation sensed is Decreased with 128 Hz tuning fork Results Reviewed Results Reviewed: Laboratory Last Values Glucose (Clinic) 111 mg/dL (60-115) 02/03/24 09:31 Assessment & Plan Assessment & Plan (1) Type 2 diabetes mellitus with diabetic polyneuropathy: Code(s): E11.42 - Type 2 diabetes mellitus with diabetic polyneuropathy Category: Medical Qualifiers: Diabetes mellitus halfway insulin use: with halfway use Qualified Code(s): E11.42 - Type 2 diabetes mellitus with diabetic polyneuropathy; Z79.4 - director long term care (current) use of insulin Plan: this is a 72-year-old white female with history of type 2 diabetes being treated with V-go 40 as well as Toujeo units with excellent glycemic control and known microvascular complications namely neuropathy, retinopathy and CKD. Plan is to continue regimen. Will speak to patient about restarting the sensor. Coding Level of Care Code Est Pt Level 4 (36044) Diagnoses Type 2 diabetes mellitus with diabetic polyneuropathy, with long-term current use of insulin E11.42; Z79.4 Diabetes mellitus exterminator termite insulin use: with halfway use
[2024-02-03 09:35] LABS: Glucose, Whole Blood 111 mg/dL (60-115)
== END 2024-02-03 09:45 | disposition home or self-care (01) ==
PROVIDERS: PCP Internal Medicine; Visit Provider Internal Medicine Endocrinology, Diabetes & Metabolism
DX: E11.42 Type 2 diabetes mellitus with diabetic polyneuropathy (principal); Z79.4 Long term (current) use of insulin
CPT/HCPCS: 99214

== ENCOUNTER → 2024-02-03 09:21 | Outpatient (BNVA) | payer MEDICARE, SELFPAY | PROVIDERS: PCP Internal Medicine; Visit Provider Internal Medicine Endocrinology, Diabetes & Metabolism | DX: E11.42 Type 2 diabetes mellitus with diabetic polyneuropathy (principal); Z79.4 Long term (current) use of insulin | CPT/HCPCS: 82947; 99212 ==

== ENCOUNTER 2024-03-29 11:29 | Outpatient (AMB) | payer MEDICARE, SELFPAY ==
[2024-03-29 11:35] VITALS: BP 136/80; PULSE 80; TEMP 36.6; O2SAT 96
--- NOTE | 2024-03-29 11:35 | AM.OFFWIN_ITS ---
Intake Vital Signs 03/29/24 11:35 Height 5 ft 2 in BP 136/80 Blood Pressure Location Rt brachial Position Sitting Pulse 80 Pulse Source Pulse Oximeter Temp 97.9 F Temp Source Oral Pulse Oximetry (%) 96 Intake Visit Reasons: EP Pain buttock down both legs Intake Note: pt is here for pain in buttock down both legs Patient Tobacco Use Status: Former Tobacco user Allergies codeine [Codeine] Allergy (Severe, Verified 03/29/24 11:35) DIFFICULTY BREATHING Penicillins Adverse Reaction (Intermediate, Verified 03/29/24 11:35) stomach upset semaglutide [From Ozempic] Adverse Reaction (Verified 03/29/24 11:35) Vomiting Do you need a note to return to daycare/school/sports/work: No HPI HPI Comments History of Present Illness Details Patient is a 73yo F with hx of renal cell ca who presents with back pain radiating down bilateral legs She has been having this since September At the time was seen by PCP and she had negative hip xr and stopped pravastatin Her cholestrol levels went much higher so they started her on again after 1 month She has been dealing pain pain since 0/10 at rest Worse with standing and [employer] in bed Described as sharp in bilateral gluteal region with radiation to lateral ankle bilaterally No radiation into toes Denies associated numbness, tingling or weakness No urine or bowel incontinence No urine or bowel symptoms No saddle parastehias No medicine for symptoms Using topical creams without relief PFSH Medical History Trochanteric bursitis of both hips Leg pain, bilateral Herpes zoster vaccination declined COVID-19 vaccine dose declined Diabetic retinopathy Tubular adenoma of colon Osteopenia History of severe acute respiratory syndrome coronavirus 2 (SARS-CoV-2) disease Obesity due to excess calories 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 Postlaminectomy syndrome MGUS (monoclonal gammopathy of unknown significance) 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 mellitus) Diabetic retinopathy associated with type 2 diabetes mellitus CKD (chronic kidney disease) stage 3, GFR 30-59 ml/min 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 GERD (gastroesophageal reflux disease) Type 2 diabetes mellitus with diabetic polyneuropathy Essential hypertension Dyslipidemia Surgical History Hx of colonoscopy Hx laparoscopic cholecystectomy Hx of tonsillectomy Hx of cataract surgery History of back surgery Family History Mother Diabetes CVD (cardiovascular disease) HTN (hypertension) Father Hodgkin disease Brother Hodgkin disease Sister Pancreatic cancer Sister Lung cancer Non-Hodgkin lymphoma Paternal Uncle Colon cancer Social History Household Members: None Housing: Condominium Alcohol intake: never Patient Tobacco Use Status: Former Tobacco user Tobacco use type: Cigarette Cigarettes Per Day: 50 Years Smoked: 20 e-Cigarette/Vaping Use: Never Used Advance Directives Date on File: 02/08/22 service: No Current occupational status: retired Cognitive needs: No Hearing needs: No Vision needs: Yes Review of Systems Const Denies chills, Denies fever(s) and Denies weakness ENT Denies dizziness Card Denies chest pain and Denies dyspnea Resp Denies cough and Denies dyspnea GI Denies abdominal pain Denies hematuria, Denies dysuria, Denies urinary hesitancy and Denies urinary urgency Musc Reports back pain (minimal lumbar region), Denies numbness, Reports radiating pain into limb (bilaterally from glute to lateral ankle) and Denies tingling Skin/Breast Denies erythema and Denies rash Neuro Denies dizziness, Denies focal weakness, Denies numbness, Denies tingling, Denies paresthesias and Denies weakness Physical Exam Vital Signs: Last Vital Signs Temp 97.9 F 03/29/24 11:35 Pulse 80 03/29/24 11:35 BP 136/80 03/29/24 11:35 Pulse Ox 96 03/29/24 11:35 General: Non-toxic, NAD. Speaking full sentences. Skin: Warm dry throughout. Legs symmetrical in size and shape bilaterally. Eye: EOMI Respiratory: CTA bilaterally. No wheezes, rales or rhonchi Cardiac: RRR. No murmur Abdominal: No CVAT. No abdominal tenderness MSK: No midline lumbar tenderness to palpation. + bilateral gluteal tenderness to palpation. Negative bilateral SLR. 5/5 strength dorsal/plantar flexion great toe bilaterally. Neurology: A/O. No aphasia or facial droop. Gait without abnormality Psych: Good mood and affect Assessment & Plan Assessment & Plan (1) Leg pain, bilateral: Code(s): M79.604 - Pain in right leg; M79.605 - Pain in left leg Plan: Patient seen and evaluated. Xray hip from last visit reviewed Xray lumbar spine: I reviewed and pt has disc space narrowing near L5. Discussed with pt. She was encouraged to follow up closely with her PCP and I sent message to PCP provider. note sen to PCP Methocarbamol; lethargy, no alcohol or driving Patient gave verbal understanding and had no additional questions or concerns at time of discharge All questions answered Orders: Orders XR lumbar spine 2-3V Today M79.604 - Pain in right leg, M79.605 - Pain in left leg Medications: New methocarbamol 500 mg PO BEDTIME 10 tabs 0RF Coding Level of Care Code Est Pt Level 3 (43940) Diagnoses Leg pain, bilateral M79.604; M79.605
== END 2024-03-29 12:10 | disposition home or self-care (01) ==
PROVIDERS: PCP Internal Medicine; Visit Provider Physician Assistant
DX: M79.604 Pain in right leg (principal); M79.605 Pain in left leg
CPT/HCPCS: 99213

== ENCOUNTER 2024-03-29 11:50 | Outpatient (REF) | payer MEDICARE, SELFPAY ==
--- NOTE | ~2024-03-29 | XR_ITS ---
EXAMINATION: XR LUMBOSACRAL SPINE CLINICAL INFORMATION: Pain in right leg. COMPARISON: 02/04/2021 TECHNIQUE: Three views of the lumbosacral spine. FINDINGS: No acute abnormalities compared to 02/04/2021. Mild, 5 degrees of levocurvature of the lumbar spine is measured from the superior endplate of L2 to the inferior plate of L5. Lumbar vertebra remain normal in height. No vertebral compression fractures. Chronic multilevel facet osteoarthritis of the lower lumbar spine, and there is chronic 0.3 cm of grade 1 anterolisthesis at L3-L4. The loss of disc height is mild at L3-L4. Chronic severe loss of disc height, vacuum disc phenomenon and osteophyte formation at L4-5 and L5-S1. There is chronic 0.3 cm of degenerative retrolisthesis of L5 on S1. Sacrum and sacroiliac joints are unremarkable. No sacral fracture. Cholecystectomy clips are present at the right upper quadrant of the abdomen. There is dense atherosclerotic calcification of the abdominal aorta and iliac arteries. XR/XR lumbar spine 2-3V IMPRESSION: Chronic multilevel degenerative arthropathy and mild vertebral subluxations of the lumbar spine without appreciable change compared to 02/04/2021.
== END 2024-03-29 11:51 | disposition home or self-care (01) ==
LOC: HO.HMGCX 11:50
PROVIDERS: PCP Internal Medicine; Visit Provider Physician Assistant
DX: M79.604 Pain in right leg (principal); M79.605 Pain in left leg
CPT/HCPCS: 72100

== ENCOUNTER 2024-04-18 13:21 | Outpatient (AMB) | payer MEDICARE, SELFPAY ==
[2024-04-18 13:44] VITALS: BP 160/60; PULSE 68; O2SAT 95; BMI 41.1
--- NOTE | 2024-04-18 13:44 | MHC.PC.OV ---
Vital Signs 04/18/24 13:44 Height 5 ft 2 in Weight 225 lb BMI 41.1 BP 160/60 H Blood Pressure Location Rt brachial Position Sitting Pulse 68 Pulse Source Pulse Oximeter Pulse Oximetry (%) 95 Oxygen Delivery Method Room Air Intake Visit Reasons: PE Intake Note: Pt is here today for her PE: last mammogram 05/21/23, bone density scan 11/11/22, colonoscopy 11/16/19 Allergies codeine [Codeine] Allergy (Severe, Verified 04/18/24 14:14) DIFFICULTY BREATHING Penicillins Adverse Reaction (Intermediate, Verified 04/18/24 14:14) stomach upset semaglutide [From Ozempic] Adverse Reaction (Verified 04/18/24 14:14) Vomiting Medication List - Last Reconciled 04/18/24 by Lyndsay Yan MD adalimumab (Humira(CF) Pen) 40 mg (0.4 mL) subcut Q2W 56 days albuterol sulfate 90 mcg/actuation (ProAir HFA) 2 puffs inhalation Q6H PRN blood sugar diagnostic (InSite WirelessTouch Ultra Test strips) USE 3 TIMES DAILY blood-glucose meter,continuous (DexSatya Inti Dharma G7 Coal Hiker) As directed blood-glucose sensor (Dexcom G7 Sensor device) DIRECTED CHANGE EVERY 10 DAYS bumetanide 1 mg PO DAILY calcium carbonate (Calcium 600) 600 mg PO BID gabapentin (Neurontin) 300 mg PO BEDTIME insulin glargine U-300 conc (Toujeo Max U-300 SoloStar) 40 units (0.1333 mL) subcut BEDTIME insulin lispro Inject up to 70 units with patch pump daily subcutaneously subcutaneously daily; lansoprazole (Prevacid 24Hr) 15 mg PO DAILY leflunomide 10 mg PO DAILY lisinopril 20 mg PO DAILY 30 days pen needle, diabetic (Easy Comfort Pen [place]) As directed once a day pen needle, diabetic (BD Opal 2nd Gen Pen Needle) USE ONCE DAILY sub-q insulin device, 40 unit (V-GO 40 device) USE DIRECTED Tobacco use date assessed: 04/18/24 Fall risk assessment: No Falls in past year Last assessed Fall Risk: 04/18/24 Dental Screening Dental Screen Date: 04/18/24 Did you have a dental visit in the last 12 months?: Yes Did you have a dental problem in the last 6 months where you did not have access to dental care?: No Was dental information given to patient?: Patient has dentist HPI PE HPI Details 73-year-old lady with diabetes mellitus with neuropathy, history of clear cell renal carcinoma, dyslipidemia, chronic kidney disease arthritis, spinal stenosis of lumbar region with radiculopathy, monoclonal gammopathy, with family history of Red syndrome, here today for her physical exam. She is up-to-date with her screening mammogram last done 05/21/2023, due again next month . She had a bone density scan 11/11/22 ordered by her butcher meat which showed normal findings except for mild osteopenia in left femoral neck. She is up-to-date with her colon cancer screening, last colonoscopy 11/16/19 due for repeat colonoscopy in [address] Little. Complains recurrent painful muscle spasm and leg and back, no history of injury or strenuous exertion. [facility] Medical History (Updated 04/25/24 @ 02:51 by Lyndsay Yan MD) Hypogammaglobulinemia Trochanteric bursitis of both hips Leg pain, bilateral Herpes zoster vaccination declined COVID-19 vaccine dose declined Diabetic retinopathy Tubular adenoma of colon Osteopenia History of severe acute respiratory syndrome coronavirus 2 (SARS-CoV-2) disease Obesity due to excess calories 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 Postlaminectomy syndrome MGUS (monoclonal gammopathy of unknown significance) 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 mellitus) Diabetic retinopathy associated with type 2 diabetes mellitus CKD (chronic kidney disease) stage 3, GFR 30-59 ml/min 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 GERD (gastroesophageal reflux disease) Type 2 diabetes mellitus with diabetic polyneuropathy Essential hypertension Dyslipidemia Surgical History Hx of colonoscopy Hx laparoscopic cholecystectomy Hx of tonsillectomy Hx of cataract surgery History of back surgery Family History Mother Diabetes CVD (cardiovascular disease) HTN (hypertension) Father Hodgkin disease Brother Hodgkin disease Sister Pancreatic cancer Sister Lung cancer Non-Hodgkin lymphoma Paternal Uncle Colon cancer Social History Household Members: None Housing: Condominium Alcohol intake: never Patient Tobacco Use Status: Former Tobacco user Tobacco use type: Cigarette Cigarettes Per Day: 50 Years Smoked: 20 e-Cigarette/Vaping Use: Never Used Advance Directives Date on File: 02/08/22 service: No Current occupational status: retired Cognitive needs: No Hearing needs: No Vision needs: Yes Questionnaire PHQ-9 Over the last 2 weeks, how often have you been bothered by any of the following problems? Depression Screening Interpretation: Negative Depression Screening Done: Yes Source: Developed by Drs. Bang Wilkerson, Aeljandro Vale and colleagues, with an educational pretty from [employer]. Thrive Questionnaire Date Thrive assessed: 12/18/23 JENY-7 AMB Questionnaire JENY-7 Date JENY - 7 assessed: 12/18/23 Source: Developed by Drs. Bang Wilkerson, Ivett Sidhu, Alejandro Momin and colleagues, with an educational pretty from [employer]. Review of Systems Const Denies chills, Denies fever(s) and Denies weakness Eyes Denies change in vision ENT Reports no additional complaints Card Denies chest pain, Denies irregular heart rhythm and Denies dyspnea Resp Denies cough and Denies dyspnea GI Denies abdominal pain Denies hematuria, Denies dysuria, Denies urinary hesitancy and Denies urinary urgency Musc Reports back pain (minimal lumbar region), Denies numbness, Reports radiating pain into limb (bilaterally from glute to lateral ankle) and Denies tingling Skin/Breast Denies breast pain, Denies breast mass, Denies erythema and Denies rash Neuro Denies focal weakness, Denies numbness, Denies tingling, Denies paresthesias and Denies weakness Psych Reports no additional complaints Endo Reports no additional complaints Eduardo/Lymph Reports no additional complaints Aller/Immun Reports no additional complaints Physical exam (Primary Care) Vital Signs: Last Vital Signs Pulse 68 04/18/24 13:44 BP 160/60 H 04/18/24 13:44 Pulse Ox 95 04/18/24 13:44 Oxygen Delivery Method Room Air 04/18/24 13:44 BMI result Body Mass Index 41.1 Tobacco/Smoking Status: Tobacco use Status Tobacco use date assessed 04/18/24 04/18/24 13:57 Patient Tobacco Use Status Former Tobacco user 04/18/24 13:45 Tobacco use type Cigarette 04/18/24 13:45 e-Cigarette/Vaping Use Never Used 04/18/24 13:45 Depression Screening Interpretation: Negative Thrive Assessment: Date of Thrive Assessment Date Thrive assessed 12/18/23 04/18/24 13:45 Const General: no acute distress Nutritional Appearance: obese Orientation/consciousness: patient oriented x3 HENMT Head: Yes normocephalic Eyes General: appearance normal, both eyes and all related structures Neck Neck: Yes full ROM, Yes no lymphadenopathy and Yes supple Resp Auscultation: clear to auscultation bilaterally Cardio Other: S1-S2 present regular rate and rhythm GI Palpation (GI): Soft to palpation, nontender and no masses General: Yes no CVA tenderness Back/Spine/Pelvis Back: no CVA tenderness Skin General skin exam: no rashes or lesions noted Neuro General: patient oriented x3, gait normal, tone normal, moves all extremities, Normal light touch and pain sensation, no focal motor deficits and CN's II-XI intact bilaterally Extrem General: Yes full ROM, Yes no joint enlargement, Yes no calf tenderness and Yes normal gait Psych Appearance: grossly normal and well kempt Mental Status: mental status grossly normal Speech and movement: Normal speech and movement present Affect: normal affect Results Reviewed Results Reviewed: Laboratory Tests 03/26/23 01/22/24 01/22/24 07:19 10:00 10:08 WBC 7.7 Hgb 12.3 Hct 39.1 RDW 14.7 Plt Count 300 Creatinine 1.44 H Estimated GFR 36 Glucose (Clinic) Estimat Average Glucose 137 Hemoglobin A1c % 6.4 H 02/03/24 09:31 WBC Hgb Hct RDW Plt Count Creatinine Estimated GFR Glucose (Clinic) 111 Estimat Average Glucose Hemoglobin A1c % Assessment and Plan Assessment & Plan (1) Annual visit for general adult medical examination with abnormal findings: Code(s): Z00.01 - Encounter for general adult medical examination with abnormal findings Plan: Will check appropriate labs. Recommended dental visit every 6 months and yearly eye exams,for retinopathy screening. Take adequate calcium in diet and vitamin-D 3 at 2000 IU per cap once a day, in addition to weight-bearing exercises to help maintain good muscle tone and weight control. Instructed to do self-breast exam, and contiue to get yearly mammogram, up-to-date with her screening colonoscopy due again in [address] Little. Up-to-date with her vaccinations, reminded to get yearly flu shot and the updated COVID booster, up-to-date with her pneumonia vaccination, reminded also to get her shingles vaccine (2) Clear cell renal cell carcinoma: Comment: Mass was treated with ablative procedure May 2023 Code(s): C64.9 - Malignant neoplasm of unspecified kidney, except renal pelvis Plan: Followed by oncology and urology (3) Osteopenia: Code(s): M85.80 - Other specified disorders of bone density and structure, unspecified site Plan: Reinforced importance of getting regular weight-bearing exercise, take calcium at least 1200 mg plus at least 2000 units of vitamin-D daily (4) Dyslipidemia: Code(s): E78.5 - Hyperlipidemia, unspecified Plan: Fasting lipids ordered, reinforced importance of following a low-cholesterol diet and staying active (5) CKD (chronic kidney disease) stage 2, GFR 60-89 ml/min: Code(s): N18.2 - Chronic kidney disease, stage 2 (mild) Plan: Avoidance of NSAIDs, reinforced importance of getting diabetes mellitus hypertension and lipids under control currently on lisinopril 20 mg daily and bumetanide 1 mg daily (6) Monoclonal gammopathy: Code(s): D47.2 - Monoclonal gammopathy Plan: Followed by oncology l (7) Type 2 diabetes mellitus with diabetic polyneuropathy: Code(s): E11.42 - Type 2 diabetes mellitus with diabetic polyneuropathy Qualifiers: Diabetes mellitus skilled nursing insulin use: with termite control technician use Qualified Code(s): E11.42 - Type 2 diabetes mellitus with diabetic polyneuropathy; Z79.4 - 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 Plan: Hemoglobin A1c is at goal. Currently followed by Dr. Dave refilled gabapentin prescription 300 mg at bedtime (8) Seropositive rheumatoid arthritis: Code(s): M05.9 - Rheumatoid arthritis with rheumatoid factor, unspecified Plan: Followed by Rheumatology currently on Humira (9) Lumbago: Code(s): M54.50 - Low back pain, unspecified Plan: Prescription sent for methocarbamol 500 mg per tablet to take 1 tablet twice a day as needed for painful muscle spasms, Medications: New methocarbamol 500 mg PO BID PRN 60 tabs 0RF Painful muscle spasm/joint Refilled gabapentin (Neurontin) 300 mg PO BEDTIME 90 caps 1RF lisinopril 20 mg PO DAILY 30 days 90 tabs 3RF Coding Level of Care Code Est Pt Prev Care >65y(23264) Diagnoses Annual visit for general adult medical examination with abnormal findings Z00.01 Clear cell renal cell carcinoma C64.9 Osteopenia M85.80 Dyslipidemia E78.5 CKD (chronic kidney disease) stage 2, GFR 60-89 ml/min N18.2 Monoclonal gammopathy D47.2 Type 2 diabetes mellitus with diabetic polyneuropathy, with long-term current use of insulin E11.42; Z79.4 Diabetes mellitus skilled nursing insulin use: with termite control technician use Seropositive rheumatoid arthritis M05.9 Lumbago M54.50
== END 2024-04-18 14:28 | disposition home or self-care (01) ==
PROVIDERS: PCP Internal Medicine; Visit Provider Internal Medicine
DX: Z00.00 Encounter for general adult medical examination without abnormal findings (principal); C64.9 Malignant neoplasm of unspecified kidney, except renal pelvis; E11.42 Type 2 diabetes mellitus with diabetic polyneuropathy; Z79.4 Long term (current) use of insulin; M05.9 Rheumatoid arthritis with rheumatoid factor, unspecified; M85.80 Other specified disorders of bone density and structure, unspecified site; E78.5 Hyperlipidemia, unspecified; N18.2 Chronic kidney disease, stage 2 (mild); D47.2 Monoclonal gammopathy; M54.50 Low back pain, unspecified
CPT/HCPCS: 99397

== ENCOUNTER 2024-04-25 08:03 | Outpatient (REF) | payer MEDICARE, SELFPAY ==
[2024-04-25 10:50] LABS: Alanine Aminotransferase 17 U/L (0-31); Aspartate Amino Transferase 24 U/L (5-31); Cholesterol 172 mg/dL (<200); HDL Cholesterol 49 mg/dL (>40); LDL Cholesterol Calculated 88 mg/dL (<100); Triglycerides 177 mg/dL (<150)
== END 2024-04-25 08:04 | disposition home or self-care (01) ==
LOC: HO.HMGCLDS 08:03
PROVIDERS: PCP Internal Medicine; Visit Provider Internal Medicine
DX: E78.5 Hyperlipidemia, unspecified (principal)
CPT/HCPCS: 36415; 80061; 84450; 84460

== ENCOUNTER 2024-05-26 10:29 | Outpatient (REF) | payer MEDICARE, SELFPAY ==
--- NOTE | ~2024-05-26 | MM_ITS ---
EXAMINATION: MM SCREENING DIGITAL BREAST TOMOSYNTHESIS, BILATERAL CLINICAL INFORMATION: Screening. Asymptomatic. COMPARISON: Mammography: This study is compared with prior exams dating back to 2016. TECHNIQUE: Digital breast tomosynthesis is performed in both the craniocaudal and mediolateral oblique views along with computer-aided detection (CAD). Synthesized 2D images are generated from the tomosynthesis. FINDINGS: There are scattered areas of fibroglandular density (ACR BI-RADS breast composition Category b). There are no significant masses, abnormal calcifications, or other abnormalities. There are scattered, bilateral benign calcifications. There is a biopsy tissue in the left breast. MM/MM tomosynthesis screening BI IMPRESSION: No mammographic evidence of malignancy. Please note that this case is being dictated after issues related to new reporting software were resolved. ASSESSMENT: BI-RADS BI-RADS 2 - Benign Findings RECOMMENDATION: Routine annual mammography screening. 1 year F/U This examination should not preclude the clinical evaluation of a suspicious palpable abnormality. This patient's information was entered into a reminder system with a target due date for their next mammogram. Electronically signed by: Daria Busby MD 06/27/2024 09:27 AM EDT
== END 2024-05-26 10:30 | disposition home or self-care (01) ==
LOC: HO.MAMMO 10:29
PROVIDERS: PCP Internal Medicine; Visit Provider Internal Medicine
DX: Z12.31 Encounter for screening mammogram for malignant neoplasm of breast (principal)
CPT/HCPCS: 77063; 77067

== ENCOUNTER → 2024-05-26 11:00 | Outpatient (BNV) | payer MEDICARE, SELFPAY | PROVIDERS: PCP Internal Medicine; Visit Provider Radiology Diagnostic Radiology | DX: Z12.31 Encounter for screening mammogram for malignant neoplasm of breast (principal) | CPT/HCPCS: 77063; 77067 ==

== ENCOUNTER 2024-06-01 10:18 | Outpatient (REF) | payer MEDICARE, SELFPAY ==
--- NOTE | ~2024-06-01 | US_ITS ---
EXAMINATION: US RETROPERITONEAL COMPLETE (RENAL) CLINICAL INFORMATION: Calculus of kidney. History of left renal cryoablation 05/27/2023. COMPARISON: 12/01/2023 CT abdomen and pelvis, ultrasound abdomen of 04/01/2023. TECHNIQUE: Real-time imaging of the kidneys and bladder. Limited visualization due to bowel gas. FINDINGS: RIGHT KIDNEY: 12.1 x 4.6 x 4.0 cm (SAG x AP x TRV). Upper pole 0.2 cm calculus. No hydronephrosis. Renal cortical thickness is normal. Limited visualization. 1.9 cm pole pole cyst with benign features. There is no indication for follow-up imaging. LEFT KIDNEY: 9.1 x 3.6 x 3.2 cm (SAG x AP x TRV). No hydronephrosis. No renal calculi. Renal cortical thickness is normal. Limited visualization. 1.3 x 1.2 x 1.3 cm left renal upper pole mass. Ultrasound of 04/01/2023 demonstrated a 1.4 x 1.1 x 1.4 cm midpole mass. US/US renal BI IMPRESSION: 1. A 1.3 cm left renal upper pole mass. Ultrasound of 04/01/2023 demonstrated a 1.4 cm mid pole mass. 2. Right renal 0.2 cm upper pole calculus. No hydronephrosis. Electronically signed by: Melvi Conway MD 06/15/2024 06:00 AM EDT
== END 2024-06-01 10:19 | disposition home or self-care (01) ==
LOC: HO.US 10:18
PROVIDERS: PCP Internal Medicine; Visit Provider Nurse Practitioner Family
DX: N20.0 Calculus of kidney (principal)
CPT/HCPCS: 76775

== ENCOUNTER 2024-06-08 08:29 | Outpatient (AMB) | payer MEDICARE, SELFPAY ==
--- NOTE | 2024-06-08 08:45 | A.OFFVIS_ITS ---
Intake Visit Reasons: 6m/US(pending 06/01) Intake Note: Patient presents for follow up visit for Renal Cell Carcinoma and Ultrasound Results Imagin06/01/24 Urology Medication: none Blood Thinner: none Customer Operations Specialist Required: No Accompanied by: Self / Same As Patient Allergies codeine [Codeine] Allergy (Severe, Verified 06/10/24 09:52) DIFFICULTY BREATHING Penicillins Adverse Reaction (Intermediate, Verified 06/10/24 09:52) stomach upset semaglutide [From Ozempic] Adverse Reaction (Verified 06/10/24 09:52) Vomiting Medication List - Last Reconciled 06/08/24 by YANETH Simpson adalimumab (Humira(CF) Pen) 40 mg (0.4 mL) subcut Q2W 56 days albuterol sulfate 90 mcg/actuation (ProAir HFA) 2 puffs inhalation Q6H PRN blood sugar diagnostic (ADVANCED MEDICAL ISOTOPETouch Ultra Test strips) USE 3 TIMES DAILY blood-glucose meter,continuous (DexFiesta Frog G7 Automotive Glass Mechanic) As directed blood-glucose sensor (Dexcom G7 Sensor device) CHANGE EVERY 10 DAYS DIRECTED bumetanide 1 mg PO DAILY calcium carbonate (Calcium 600) 600 mg PO BID gabapentin (Neurontin) 300 mg PO BEDTIME insulin glargine U-300 conc (Toujeo Max U-300 SoloStar) 40 units (0.1333 mL) subcut BEDTIME insulin lispro (Humalog U-100 Insulin) Inject up to 70 units with patch pump daily subcutaneously daily; lansoprazole (Prevacid 24Hr) 15 mg PO DAILY leflunomide 10 mg PO DAILY lisinopril 20 mg PO DAILY 30 days methocarbamol 500 mg PO BID PRN pen needle, diabetic (Easy Comfort Pen [place]) As directed once a day pen needle, diabetic (BD Opal 2nd Gen Pen Needle) USE ONCE DAILY sub-q insulin device, 40 unit (V-GO 40 device) USE DIRECTED HPI Comments Details: Paola is a pleseant 73 year old female patient of Dr. Yan. She has a H CKD stage 3, diabetic retinopathy, dyslipidemia, essential hypertenstion, IDDM, obesity, osteopenia, postlaminectomy syndrome, spinal stenosis of lumbar region with radiculopathy, and spondylosis of lumbar spine. She presents to the office today for follow-up of her clear cell renal cell carcinoma. Patient is status post renal biopsy and cryoablation on 05/27/23. Recent renal imaging results reviewed with the patient today. Bilateral kidneys with no hydronephrosis. 1.9 cm pole right renal cyst with benign features that requires no indication for follow-up per radiology report. Left kidney with 1.3 left renal upper pole mass previously measuring 1.4 cm. In discussion with the patient today she reports to be doing and feeling well. She discusses at length her ongoing issues with her rheumatoid arthritis. She discusses awaiting new patient appointment with new provider sometime in June. She discusses continuing to follow-up with oncology, pulmonology, Nephrology and PCP. She currently denies any bothersome urinary issues. In office urinalysis results reviewed with the patient today. Discussed surveillance monitoring with CT abdomen and pelvis as well as chest CT at 6 months, 24 months, and 5 years with renal ultrasounds in between. 12/05 CT of the chest as well as abdomen results reviewed with the patient today. 8 mm nodule right mid lobe no focal consolidation. Postprocedural changes involving the lateral upper pole of the left kidney. Zone ablation approximately 1.5 cm no left-sided hydronephrosis. 2.1 cm hypodensity lower pole right kidney that is hyperdense on precontrast imaging demonstrates no significant enhancement. This likely represents a proteinaceous or hemorrhagic cyst. No right hydronephrosis per radiology report. Bladder unremarkable. Patient with PT1A renal cell carcinoma [place] grade 3. During last office visit patient was referred to pulmonology for further assessment evaluation of 8 mm right mid lobe nodule and today discusses upcoming CT of chest surveillance monitoring with pulmonology. When asked she denies urinary urgency, urinary frequency, incontinence, nocturia, hematuria, dysuria, foul smelling urine, changes to urinary stream, flank pain, fever, and or chills. She is happy with her current voiding parameters. She otherwise offers no issues or concerns at this time. [facility] Medical History Hypogammaglobulinemia Trochanteric bursitis of both hips Leg pain, bilateral Herpes zoster vaccination declined COVID-19 vaccine dose declined Diabetic retinopathy Tubular adenoma of colon Osteopenia History of severe acute respiratory syndrome coronavirus 2 (SARS-CoV-2) disease Obesity due to excess calories 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 Postlaminectomy syndrome MGUS (monoclonal gammopathy of unknown significance) 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 mellitus) Diabetic retinopathy associated with type 2 diabetes mellitus CKD (chronic kidney disease) stage 3, GFR 30-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/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 GERD (gastroesophageal reflux disease) Type 2 diabetes mellitus with diabetic polyneuropathy Essential hypertension Dyslipidemia Surgical History Hx of colonoscopy Hx laparoscopic cholecystectomy Hx of tonsillectomy Hx of cataract surgery History of back surgery Family History Mother Diabetes CVD (cardiovascular disease) HTN (hypertension) Father Hodgkin disease Brother Hodgkin disease Sister Pancreatic cancer Sister Lung cancer Non-Hodgkin lymphoma Paternal Uncle Colon cancer Social History Household Members: None Housing: Condominium Alcohol intake: never Patient Tobacco Use Status: Former Tobacco user Tobacco use type: Cigarette Cigarettes Per Day: 50 Years Smoked: 20 e-Cigarette/Vaping Use: Never Used Advance Directives Date on File: 02/08/22 service: No Current occupational status: retired Cognitive needs: No Hearing needs: No Vision needs: Yes Review of Systems Const Reports as per HPI Eyes Reports no additional complaints ENT Reports no additional complaints Card Reports as per HPI Resp Reports no additional complaints GI Reports as per HPI Reports as per HPI Musc Reports as per HPI Neuro Reports as per HPI Psych Reports no additional complaints Endo Reports as per HPI Eduardo/Lymph Reports no additional complaints Aller/Immun Reports no additional complaints Physical Exam Const General: cooperative, healthy appearing, comfortable, no acute distress, well developed, alert and awake Nutritional Appearance: overweight Orientation/consciousness: patient oriented x3 Limitations: no limitations HEENT Head: Yes normal to inspection, Yes normocephalic and Yes atraumatic Ears: hearing grossly normal bilaterally Eyes General: appearance normal, both eyes and all related structures Neck Neck: Yes normal visual inspection and Yes trachea midline Chest Chest palpation & inspection: normal inspection of the chest Resp Effort & Inspection: normal respiratory effort and able to speak in complete sentences Cardio Rate: regular rate GI Inspection: Yes normal to inspection General: Yes no CVA tenderness Back/Spine/Pelvis Back: no CVA tenderness Skin General skin exam: no rashes or lesions noted Neuro General: patient oriented x3 Extrem General: Yes normal to inspection Psych Appearance: grossly normal and well kempt Mental Status: mental status grossly normal Speech and movement: Normal speech and movement present and Clear speech present Affect: normal affect Attitude: cooperative Thought process: Normal thought process present Thought content: Normal thought content present Insight: Good insight present (Psych) Judgement: Good judgement present (Psych) Results AMB Urinalysis, Automated UA Leukoctes 0 Mary/uL Last Edit by [employer] on 06/08/24 08:58 UA Nitrite Last Edit by [employer] on 06/08/24 08:58 UA Urobilinogen 0.2 mg/dL Last Edit by [employer] on 06/08/24 08:58 UA Protein 0 mg/dL Last Edit by [employer] on 06/08/24 08:58 UA pH 6.0 Last Edit by [employer] on 06/08/24 08:58 UA Blood 0 Rajinder/uL Last Edit by [employer] on 06/08/24 08:58 UA Specific [place] 1.010 Last Edit by [employer] on 06/08/24 08:58 UA Ketone Negative Last Edit by [employer] on 06/08/24 08:58 UA Bilirubin 0 mg/dL Last Edit by [employer] on 06/08/24 08:58 UA Glucose 0 mg/dL Last Edit by [employer] on 06/08/24 08:58 Results Reviewed Results Reviewed: Laboratory Last Values Urine pH (Auto) 6.0 06/08/24 08:51 Specific [place] (Auto) 1.010 06/08/24 08:51 Urine Protein (Auto) 0 mg/dL 06/08/24 08:51 Glucose (UA)(Auto) 0 mg/dL 06/08/24 08:51 Urine Ketones (Auto) Negative 06/08/24 08:51 Urine Blood (Auto) 0 Rajinder/uL 06/08/24 08:51 Urine Bilirubin (Auto) 0 mg/dL 06/08/24 08:51 Urine Urobilinogen (Auto) 0.2 mg/dL 06/08/24 08:51 Leukocyte Esterase (Auto) 0 Mary/uL 06/08/24 08:51 Date of Service: 06/01/24 FINDINGS: RIGHT KIDNEY: 12.1 x 4.6 x 4.0 cm (SAG x AP x TRV). Upper pole 0.2 cm calculus. No hydronephrosis. Renal cortical thickness is normal. Limited visualization. 1.9 cm pole pole cyst with benign features. There is no indication for follow-up imaging. LEFT KIDNEY: 9.1 x 3.6 x 3.2 cm (SAG x AP x TRV). No hydronephrosis. No renal calculi. Renal cortical thickness is normal. Limited visualization. 1.3 x 1.2 x 1.3 cm left renal upper pole mass. Ultrasound of 04/01/2023 demonstrated a 1.4 x 1.1 x 1.4 cm midpole mass. IMPRESSION: 1. A 1.3 cm left renal upper pole mass. Ultrasound of 04/01/2023 demonstrated a 1.4 cm mid pole mass. 2. Right renal 0.2 cm upper pole calculus. No hydronephrosis. Assessment & Plan Assessment & Plan (1) Clear cell renal cell carcinoma: Comment: Mass was treated with ablative procedure May 2023 Code(s): C64.9 - Malignant neoplasm of unspecified kidney, except renal pelvis Category: Medical Plan In office urinalysis results reviewed with the patient today; as noted above. Recent renal imaging results reviewed with the patient today; as noted above. Discussed at length surveillance monitoring Patient currently denies any bothersome urinary issues or concerns. She reports be happy with current voiding parameters. Continue to follow-up with PCP, pulmonology, oncology, Nephrology, and other specialties as planned. Will obtain renal ultrasound in 6 months. Follow-up in 6 months with imaging to be completed prior; or sooner with any issues, concerns, and or questions. Orders: Orders AMB Urinalysis Automated 06/08/24 Z13.9 - Encounter for screening, unspecified US renal BI 6 Months C64.9 - Malignant neoplasm of unspecified kidney, except renal pelvis, N20.0 - Calculus of kidney Patient Instructions: The patient had an opportunity to ask questions regarding the treatment plan. All questions were answered. Physical exam, labs, and imaging were discussed and reviewed in detail. As well as risks, benefits, and discussion of treatment choices. No major barriers to understanding were identified. The patient expressed understanding and agreement with the above treatment plan. The patient was made aware they should contact our office by phone for worsening of their current condition, the appearance of new symptoms, or with any questions or concerns. Compliance is encouraged with any medications and follow up testing that is ordered. It is a privilege to be allowed the opportunity to participate in? your urological care.? Again, if you have any questions or concerns If you have any questions or concerns please do not hesitate to contact me. The office is [phone]. This note is constructed using voice recognition software. While every effort has been made to ensure accuracy gas scrubber operator errors may have been included. Yours sincerely, YANETH Simpson Coding Level of Care Code Est Pt Level 3 (16164) Complex EM visit Add On G2211 Diagnoses Clear cell renal cell carcinoma C64.9
== END 2024-06-08 09:12 | disposition home or self-care (01) ==
PROVIDERS: PCP Internal Medicine; Visit Provider Nurse Practitioner Family
DX: C64.9 Malignant neoplasm of unspecified kidney, except renal pelvis (principal)
CPT/HCPCS: 99213; G2211

== ENCOUNTER → 2024-06-08 08:29 | Outpatient (BNVA) | payer MEDICARE, SELFPAY | PROVIDERS: PCP Internal Medicine; Visit Provider Nurse Practitioner Family | DX: C64.9 Malignant neoplasm of unspecified kidney, except renal pelvis (principal) | CPT/HCPCS: 81003; 99212 ==

== ENCOUNTER 2024-06-14 09:57 | Outpatient (REF) | payer MEDICARE, SELFPAY ==
--- NOTE | ~2024-06-14 | CT_ITS ---
EXAMINATION: CT CHEST WITHOUT CONTRAST CLINICAL INFORMATION: Renal cell carcinoma, follow-up solitary pulmonary nodule. COMPARISON: 12/01/2023 CT chest. TECHNIQUE: Multidetector volumetric CT imaging of the chest was done. Axial MIP volume rendering provided. Sagittal and coronal reformatted images were obtained. This CT examination was performed using dose optimization techniques as appropriate, variously including the following: *Automated exposure control *Adjustment of mA and/or kV according to patient size (this includes techniques or standardized protocols for targeted exams where dose is matched to indication/reason for exam; i.e. extremities or head) *Use of iterative reconstruction technique DLP: 301 mGy-cm FINDINGS: Pulmonary nodules: -Stable average diameter 7 mm nodule in the medial right upper lobe just above the minor fissure. (Series 7, image 339). -There are a few stable scattered 2 to 3 mm calcified noncalcified nodules in both lungs. These are statistically benign. -New nodule measuring 3 mm in the lateral lingula (series 7, image 388), with mild surrounding groundglass suggesting inflammatory abnormality. -There are no additional new, suspicious nodules or enlarging nodules. LUNGS: -There is mild emphysema. -There are no consolidations. -There are pairs scattered subpleural groundglass foci in both upper lobes, the lingula, nonspecific and likely infectious and/or inflammatory. -No effusions or pleural masses. - Mild diffuse small airway thickening suggesting bronchitis or chronic bronchitis. -Central airways are normal. MEDIASTINUM: -Normal thyroid. -No adenopathy. -Main pulmonary artery is prominent at 3.4 cm, suggesting possible increased pulmonary pressures. -The aorta is moderately calcified but normal in caliber. There is no aneurysm. -Great vessels are calcified and demonstrate 2 vessel branching pattern. -Normal esophagus. -Heart size normal. Heavy calcification of the mitral annulus, and milder changes of the aortic annulus. No pericardial effusion. CORONARY ARTERY CALCIFICATION: Heavy four-vessel calcifications. AXILLA/CHEST WALL: No masses or lymphadenopathy. UPPER ABDOMEN: -Cholecystectomy. -Incompletely evaluated postop changes to the superior left kidney. -Heavy calcification of partially imaged aorta. -Upper abdominal structures otherwise normal. OSSEOUS STRUCTURES: -no lytic or blastic bone lesions. -Moderate degenerative changes of the spine. CT/CT chest wo IV con IMPRESSION: 1. Stable pulmonary nodules, largest in the inferior medial right upper lobe measuring an average diameter of 7 mm. This is benign. 2. A few nonspecific foci of new subpleural groundglass opacity in the bilateral upper lobes and lingula, likely infectious and/or inflammatory. These findings are very subtle, and of questionable clinical significance. 3. Mild emphysema. 4. Prominent main pulmonary artery, suggesting increased pulmonary pressures. 5. Mild thickening of the small airways suggesting chronic bronchitis. 6. Heavy calcific atheromatous changes of the coronary arteries and aorta. 7. Additional ancillary findings as discussed in the body of the report. Fleischner guidelines were followed. Electronically signed by: Gregory Nielson MD 08/26/2024 02:37 PM [facility] [place]
== END 2024-06-14 09:58 | disposition home or self-care (01) ==
LOC: HO.CT 09:57
PROVIDERS: PCP Internal Medicine; Visit Provider Hospitalist
DX: R91.1 Solitary pulmonary nodule (principal)
CPT/HCPCS: 71250

== ENCOUNTER → 2024-06-14 10:01 | Outpatient (BNV) | payer MEDICARE, SELFPAY | PROVIDERS: PCP Internal Medicine; Visit Provider Radiology Diagnostic Radiology | DX: R91.1 Solitary pulmonary nodule (principal) | CPT/HCPCS: 71250 ==

== ENCOUNTER 2024-06-27 10:52 | Outpatient (AMB) | payer MEDICARE, SELFPAY ==
[2024-06-27 11:18] VITALS: BP 160/70; PULSE 74; O2SAT 95; BMI 39.9
--- NOTE | 2024-06-27 11:18 | A.OFFVIS_ITS ---
Vital Signs 06/27/24 11:18 Height 5 ft 2 in Weight 218 lb 4.122 oz BMI 39.9 BP 160/70 H Blood Pressure Location Lt brachial Position Sitting Pulse 74 Pulse Source Pulse Oximeter Pulse Oximetry (%) 95 Oxygen Delivery Method Room Air Intake Visit Reasons: Pulmonary nodule Pulmonary Fellow Required: No Allergies codeine [Codeine] Allergy (Severe, Verified 06/27/24 11:20) DIFFICULTY BREATHING Penicillins Adverse Reaction (Intermediate, Verified 06/27/24 11:20) stomach upset semaglutide [From Ozempic] Adverse Reaction (Verified 06/27/24 11:20) Vomiting HPI Comments Details: The patient is a 73 year woman with a known history rheumatoid arthritis in addition to renal cell cancer status post cryoablation who apparently had a CT scan demonstrating pulmonary nodule. The patient has been doing well from a respiratory status denied any chest pain or shortness of breath. The patient does complaint of some sciatic like discomfort at this time but she has had this before. Moderate severity. It is limiting her walk. She did have a CT scan of the chest back in 12/01/2023 which we personally. Even after so many years of smoking and exposure to metal fumes while working in the [employer] the patient's lung parenchyma actually looks pretty healthy. The patient does have a smooth border 8 mm pulmonary nodule noted on the right hemithorax. In view of her renal cell carcinoma we did have her come in urgently to further evaluate. The patient had multiple imaging studies in the past it even a CTA dated back to 2016. I did also personally reviewed this CT scan with the patient. She has a very similar nodule in the right hemithorax measuring around 7.5 mm in size. Issues slightly larger in size compared to the measurement from this recent CT scan. Is very unlikely that this nodules related to her renal cell since she has had a for many years. Will go ahead and monitor this nodule fairly closely so therefore have her come back in 6 months with a repeat CT scan. If the patient develops any worsening symptoms prior to that she will call for an earlier assessment. 06/27/2024 the patient is here for a pulmonary follow-up visit. The patient overall has been doing well from a respiratory status. She denies any cough or shortness of breath or chest discomfort. She is followed closely by Urology. Recently she had an ultrasound of her kidney and was told that everything stable for now. This is per report. In the meantime were also following a pulmonary nodule. The nodules in the right hemithorax. She therefore had a recent CT scan of the chest that we personally reviewed. The CT scan unfortunately has not been officially read but we did look at it closely we did compare to her previous CT scan from 12/01/2023. It appears that the nodular density on the right has not changed. He does have different Hounsfield units suggesting the possibility of hamartoma. Still though with a history of renal cell carcinoma in the high risk for metastatic disease to the lungs and sometimes with smoldering process and it is important to follow this nodule closely for any metastatic disease. Therefore will plan to repeat the CT scan in 6 months. In the meantime the CT scan also demonstrates areas of mosaic pattern and thickening of the mucosa suggesting a chronic bronchitis. She is a former smoker. Therefore, we did talk about different inhaler therapy. She is not interested in any maintenance therapy since she does not feel too symptomatic. Therefore I will order an Acapella valve for so she can work on chest physical therapy bronchopulmonary hygiene to be able to clear her lungs out of any mucus secretions. The patient can also work on walking exercises to allow also good expansion of the lungs to be able to expectorate any secretions as well. Will go ahead and follow-up in [address] scan. If she develops any issues prior to that she will call for an earlier assessment. FORMERLY [facility], [facility]1983 Medical History Hypogammaglobulinemia Trochanteric bursitis of both hips Leg pain, bilateral Herpes zoster vaccination declined COVID-19 vaccine dose declined Diabetic retinopathy Tubular adenoma of colon Osteopenia History of severe acute respiratory syndrome coronavirus 2 (SARS-CoV-2) disease Obesity due to excess calories 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 Postlaminectomy syndrome MGUS (monoclonal gammopathy of unknown significance) 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 mellitus) Diabetic retinopathy associated with type 2 diabetes mellitus CKD (chronic kidney disease) stage 3, 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 GERD (gastroesophageal reflux disease) Type 2 diabetes mellitus with diabetic polyneuropathy Essential hypertension Dyslipidemia Surgical History Hx of colonoscopy Hx laparoscopic cholecystectomy Hx of tonsillectomy Hx of cataract surgery History of back surgery Family History Mother Diabetes CVD (cardiovascular disease) HTN (hypertension) Father Hodgkin disease Brother Hodgkin disease Sister Pancreatic cancer Sister Lung cancer Non-Hodgkin lymphoma Paternal Uncle Colon cancer Social History Household Members: None Housing: Condominium Alcohol intake: never Patient Tobacco Use Status: Former Tobacco user Tobacco use type: Cigarette Cigarettes Per Day: 50 Years Smoked: 20 e-Cigarette/Vaping Use: Never Used Advance Directives Date on File: 02/08/22 service: No Current occupational status: retired Cognitive needs: No Hearing needs: No Vision needs: Yes Review of Systems Const Reports no additional complaints Eyes Reports no additional complaints ENT Reports as per HPI, Denies vertigo, Denies dizziness, Denies otalgia, Denies nasal discharge, Reports post nasal drip and Denies sore throat Card Reports no additional complaints Resp Reports no additional complaints GI Reports no additional complaints Reports no additional complaints Musc Reports no additional complaints Skin/Breast Denies rash Neuro Reports no additional complaints, Denies vertigo and Denies dizziness Psych Reports no additional complaints Endo Reports no additional complaints Eduardo/Lymph Reports no additional complaints Aller/Immun Reports no additional complaints Physical Exam Vital Signs: Last Vital Signs Pulse 74 06/27/24 11:18 BP 160/70 H 06/27/24 11:18 Pulse Ox 95 06/27/24 11:18 Oxygen Delivery Method Room Air 06/27/24 11:18 BMI result Body Mass Index 39.9 Const General: comfortable HEENT Head: Yes normocephalic Neck Neck: Yes supple Chest Chest palpation & inspection: normal inspection of the chest Resp Effort & Inspection: normal respiratory effort Auscultation: clear to auscultation bilaterally Cardio Heart sounds: S1 normal heart sound present and S2 normal heart sound present GI Palpation (GI): Soft to palpation Skin General skin exam: no rashes or lesions noted Extrem General: Yes no clubbing, cyanosis or edema Assessment & Plan Assessment & Plan (1) Pulmonary nodule: Code(s): R91.1 - Solitary pulmonary nodule Category: Medical (2) Clear cell renal cell carcinoma: Comment: Mass was treated with ablative procedure May 2023 Code(s): C64.9 - Malignant neoplasm of unspecified kidney, except renal pelvis Category: Medical Plan Will repeat CT chest in 6 months F/U in 6 months Orders: Orders CT chest wo IV con 6 Months C64.9 - Malignant neoplasm of unspecified kidney, except renal pelvis, R91.1 - Solitary pulmonary nodule Coding Level of Care Code Est Pt Level 4 (85199) Diagnoses Pulmonary nodule R91.1 Clear cell renal cell carcinoma C64.9 Time Spent (min) 16
== END 2024-06-27 11:45 | disposition home or self-care (01) ==
PROVIDERS: PCP Internal Medicine; Visit Provider Hospitalist
DX: R91.1 Solitary pulmonary nodule (principal); C64.9 Malignant neoplasm of unspecified kidney, except renal pelvis
CPT/HCPCS: 99214

== ENCOUNTER → 2024-06-27 10:52 | Outpatient (BNVA) | payer MEDICARE, SELFPAY | PROVIDERS: PCP Internal Medicine; Visit Provider Hospitalist | DX: R91.1 Solitary pulmonary nodule (principal); C64.9 Malignant neoplasm of unspecified kidney, except renal pelvis | CPT/HCPCS: 99212 ==

== ENCOUNTER 2024-07-09 08:19 | Outpatient (REF) | payer MEDICARE, SELFPAY ==
[2024-07-09 11:25] LABS: MANUAL DIFF FLAG NO
[2024-07-09 11:35] LABS: Basophils Absolute Auto 0.1 X10*3/uL (0.0-0.2); Eosinophils Absolute Auto 0.5 X10*3/uL (0.0-0.4); Eosinophils Percent Auto 6.4 % (0-4); Hemoglobin 12.4 g/dl (12.0-16.0); Imm Gran Abs Auto 0.06 X10*3/uL (0.00-0.03); Imm Gran Pct Auto 0.8 % (0.0-0.4); Lymphocytes Absolute Auto 2.2 X10*3/uL (1.2-4.9); Lymphocytes Percent Auto 29.1 % (20-40); Mean Corpuscular HGB Conc 31.8 g/dl (31.0-35.0); Mean Corpuscular Hemoglobin 28.1 pg (27.0-33.0); Mean Corpuscular Volume 88.4 fL (80.0-98.0); Mean Platelet Volume 11.2 fL (9.4-12.3); Monocytes Absolute Auto 0.9 X10*3/uL (0.1-1.2); Monocytes Percent Auto 12.2 % (2-11); Neutrophils Absolute Auto 3.9 x10*3/uL (2.0-8.3); Neutrophils Percent Auto 50.5 % (45-73); Platelet Count 316 X10*3/uL (160-400); Red Blood Count 4.41 X10*6/uL (4.20-5.50); Red Cell Distribution Width 14.5 % (11.0-16.0); White Blood Count 7.6 X10*3/uL (4.8-10.8)
[2024-07-09 11:47] LABS: Alanine Aminotransferase 15 U/L (0-31); Albumin Level 4.1 g/dL (3.5-5.0); Alkaline Phosphatase 67 U/L (39-117); Anion Gap 15 (12-20); Aspartate Amino Transferase 20 U/L (5-31); Bilirubin Total 0.5 mg/dL (0.0-1.0); Blood Urea Nitrogen 38 mg/dL (9-16); C Reactive Protein 0.78 mg/dL (< or = 0.50); Carbon Dioxide 25 mmol/L (22-29); Chloride 105 mmol/L (96-108); Estimated Glomerular Filt Rate 30; Glucose Random 131 mg/dL (60-115); Potassium 4.7 mmol/L (3.3-5.1); Sodium 140 mmol/L (135-145); Total Protein 7.3 g/dL (6.5-8.0)
[2024-07-09 12:16] LABS: Erythrocyte Sedimentation Rate 43 MM/HR (0-20)
== END 2024-07-09 08:20 | disposition home or self-care (01) ==
LOC: HO.HMGCLDS 08:19
PROVIDERS: PCP Internal Medicine; Visit Provider Nurse Practitioner Family
DX: M05.9 Rheumatoid arthritis with rheumatoid factor, unspecified (principal)
CPT/HCPCS: 36415; 80053; 85025; 85652; 86140

== ENCOUNTER 2024-07-12 09:32 | Outpatient (AMB) | payer MEDICARE, SELFPAY ==
[2024-07-12 09:43] VITALS: BP 158/74; PULSE 69; O2SAT 96; BMI 39.9
--- NOTE | 2024-07-12 09:43 | MHC.OFFVIS ---
Vital Signs 07/12/24 09:43 Height 5 ft 2 in Weight 218 lb 4.122 oz BMI 39.9 BP 158/74 H Blood Pressure Location Lt brachial Position Sitting Pulse 69 Pulse Source Pulse Oximeter Pulse Oximetry (%) 96 Oxygen Delivery Method Room Air Intake Visit Reasons: RA/CM Intake Note: Patient presents today for follow up on RA and lab review. Patient states her hips have been bothering her since September. Allergies codeine [Codeine] Allergy (Severe, Verified 07/12/24 09:45) DIFFICULTY BREATHING Penicillins Adverse Reaction (Intermediate, Verified 07/12/24 09:45) stomach upset semaglutide [From Ozempic] Adverse Reaction (Verified 07/12/24 09:45) Vomiting Medication List - Last Reconciled 07/12/24 by Minal Chapman MD adalimumab (Humira(CF) Pen) 40 mg (0.4 mL) subcut Q2W 56 days albuterol sulfate 90 mcg/actuation 2 puffs inhalation Q6H PRN blood sugar diagnostic ([employer] Ultra Test strips) USE 3 TIMES DAILY blood-glucose meter,continuous (DexGoMore G7 Laboratory Courier) As directed blood-glucose sensor (Dexcom G7 Sensor device) CHANGE EVERY 10 DAYS DIRECTED bumetanide 1 mg PO DAILY calcium carbonate (Calcium 600) 600 mg PO BID gabapentin (Neurontin) 300 mg PO BEDTIME insulin glargine U-300 conc (Toujeo Max U-300 SoloStar) 40 units (0.1333 mL) subcut BEDTIME insulin lispro (Humalog U-100 Insulin) Inject up to 70 units with patch pump daily subcutaneously daily; lansoprazole (Prevacid 24Hr) 15 mg PO DAILY leflunomide 10 mg PO DAILY lisinopril 20 mg PO DAILY 30 days methocarbamol 500 mg PO BID PRN pen needle, diabetic (Easy Comfort Pen [place]) As directed once a day pen needle, diabetic (BD Opal 2nd Gen Pen Needle) USE ONCE DAILY sub-q insulin device, 40 unit (V-GO 40 device) USE DIRECTED HPI Comments Details: Patient is a 73-year-old female who presents for follow-up of rheumatoid arthritis, and osteoarthritis. Interval History: Last seen 10/2023 with Ivy Martin. At that time she had a new diagnosis of clear cell carcinoma of the kidney status post ablative surgical therapy. With improvement. She also had an issue with hip bursitis and was given bilateral corticosteroid injection. Had CT chest 06/14/24 as part of routine evaluation of a lung nodule Today she reports improvement in her right hip however her left hip still has pain. Unable to lay down on that side. With respect to her RA she denies any prolonged morning stiffness or joint pain/swelling. Rheumatologic History: Diagnosed with rheumatoid arthritis more than 10 years ago. Currently on Humira and leflunomide. Currently in remission Medication History: Humira 40 mg every other week subQ Leflunomide 10 mg every day [facility] Medical History Hypogammaglobulinemia Trochanteric bursitis of both hips Leg pain, bilateral Herpes zoster vaccination declined COVID-19 vaccine dose declined Diabetic retinopathy Tubular adenoma of colon Osteopenia History of severe acute respiratory syndrome coronavirus 2 (SARS-CoV-2) disease Obesity due to excess calories 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 Postlaminectomy syndrome MGUS (monoclonal gammopathy of unknown significance) 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 mellitus) Diabetic retinopathy associated with type 2 diabetes mellitus CKD (chronic kidney disease) stage 3, GFR 30-59 ml/min [facility] (current) use of insulin GERD (gastroesophageal reflux disease) Type 2 diabetes mellitus with diabetic polyneuropathy Essential hypertension Dyslipidemia Surgical History Hx of colonoscopy Hx laparoscopic cholecystectomy Hx of tonsillectomy Hx of cataract surgery History of back surgery Family History Mother Diabetes CVD (cardiovascular disease) HTN (hypertension) Father Hodgkin disease Brother Hodgkin disease Sister Pancreatic cancer Sister Lung cancer Non-Hodgkin lymphoma Paternal Uncle Colon cancer Social History Household Members: None Housing: Condominium Alcohol intake: never Patient Tobacco Use Status: Former Tobacco user Tobacco use type: Cigarette Cigarettes Per Day: 50 Years Smoked: 20 e-Cigarette/Vaping Use: Never Used Advance Directives Date on File: 02/08/22 service: No Current occupational status: retired Cognitive needs: No Hearing needs: No Vision needs: Yes Review of Systems Const Details: Review of Systems Constitutional: Denies fever, chills, weight loss ENT: Denies vision changes, eye pain or eye redness, dental caries, dry mouth GI: Denies nausea, vomiting, diarrhea, abdominal pain, change in BM Pulm: Denies SOB, RODRIGUEZ, hemoptysis, wheezing Cards: Denies chest pain, palpitations Skin: Denies Raynaud's, rash, nail changes, photosensitivity, ADMISSIONS CONSULTANT: Denies headaches, weakness, paresthesias, recurrent falls MSK: Complains of joint pain and joint stiffness. Denies joint swelling, muscle weakness, bone pain. Left hip pain All other systems reviewed and are unremarkable except noted above Review of Symptoms Physical Exam Vital Signs: Last Vital Signs Pulse 69 07/12/24 09:43 BP 158/74 H 07/12/24 09:43 Pulse Ox 96 07/12/24 09:43 Oxygen Delivery Method Room Air 07/12/24 09:43 BMI result Body Mass Index 39.9 Const Other: Physical Examination Patient well appearing and in no apparent painful distress Able to rise from chair without support. ?Gait normal. Constitutional: ?Mucous membranes pink and moist patient alert and cooperative HEENT: ?Conjunctiva and sclera clear. ?Pupils equal round and reactive to light. ?No lymphadenopathy. ?Normal dentition. Resp: ?Normal respiratory effort and able to speak in complete sentences. ?Clear to auscultation bilaterally. ?No crackles, rales, rhonchi, wheezes heard. Cards: ?Regular rate and rhythm. ?S1 and S2 heard no murmurs. ?Radial pulses intact bilaterally MSK: ?No deformity, swelling, abnormalities noted to bilateral hands. Unable to make a fist with the right hand. ?No evidence of synovitis. ?Able to move all joints with full range of motion, without limitation. Pain with palpation of the left greater trochanter Office Procedures Joint Injection/Aspiration Joint Injection/Aspiration Details: Left greater trochanter was prepped with chlorhexadine Area identified Injected 40mg kenalog with 1cc 1% lidocaine under sterile technique PAtient tolerated procedure Primary Site: other (Left greater trochanter) Prep: site was prepped using aseptic technique Injected: 40 mg of, Kenalog, with 1 mL of and 1% plain lidocaine Approach Used: other (lateral ) Procedure: The patient tolerated the procedure well Coding 47829 - Glenohumeral/Tronchanteric Bursa/Intraarticular Procedure code (CPT) selection complete Results Reviewed Results Reviewed: Results and imaging reviewed. DEXA 10/2022 FINDINGS: AP SPINE L1-L3 (excluding L4): The data of L1-L4 has been changed to exclude the L4 vertebral body, because degenerative changes at this level may cause overestimation of lumbar spine density. Current: BMD 1.502 g/cm2, Z-score 3.3, T-score 2.8, normal, 6.7% increase from previous, 7.0% increase from baseline (<5% change is not significant). Prior: BMD 1.408 g/cm2. Baseline: BMD 1.404 g/cm2. LEFT FEMUR, NECK: Current: BMD 0.882 g/cm2, Z-score -0.1, T-score -1.1, osteopenia. Prior: BMD 1.068 g/cm2. Baseline: BMD 1.099 g/cm2. LEFT FEMUR, TOTAL: Current: BMD 1.120 g/cm2, Z-score 1.6, T-score 0.9, normal, 7.4% decrease from previous, 10.3% decrease from baseline (<5% change is not significant). Prior: BMD 1.210 g/cm2. Baseline: BMD 1.248 g/cm2. IDENTIFIED RISK FACTORS: Menopause, osteoporosis, renal, rheumatoid arthritis, glucocorticoids (chronic), anticonvulsant. HISTORY OF FRACTURE: None listed. MEDICATIONS: Calcium, vitamin D. MM/XR DEXA axial skeleton IMPRESSION: 1. DIAGNOSIS: Osteopenia based on the lowest T-score value of -1.1 in the femoral neck applying World Health Organization criteria. Laboratory Tests 01/22/24 06/10/24 07/09/24 10:00 10:23 08:22 WBC 7.7 6.9 7.6 RBC 4.34 4.52 4.41 Hgb 12.3 12.8 12.4 Plt Count 300 239 316 D ESR 43 H Sodium 140 140 Potassium 4.6 4.7 Chloride 106 105 Carbon Dioxide 29 25 BUN 32 H 38 H Creatinine 1.55 H 1.68 H Total Bilirubin 0.5 0.5 AST 24 20 ALT 19 15 Alkaline Phosphatase 73 67 C-Reactive Protein 0.78 H Total Protein 7.3 7.3 Albumin 4.1 4.1 Assessment & Plan Assessment & Plan (1) Seropositive rheumatoid arthritis: Code(s): M05.9 - Rheumatoid arthritis with rheumatoid factor, unspecified Category: Medical Plan: #Seropositive RA Patient with seropositive erosive rheumatoid arthritis. Currently in remission with CDAI 4. Continue Humira and leflunomide. (2) Osteopenia: Code(s): M85.80 - Other specified disorders of bone density and structure, unspecified site Category: Medical Plan: #Osteopenia Osteopenia based on DEXA. Encouraged vitamin-D and calcium supplementation. Weight-bearing exercises. 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 immunosuppressive biologic Plan: #Long-term use of TNF Inhibitors Discussed with the patient the benefits and risks of TNF inhibitors for the management of the rheumatic condition Benefits include reduce pain, maintenance of remission and reduction of flares as well as progression of the disease Risks include injection sites/infusion reactions, serious infections (such as bacterial infections, opportunistic infections), malignancy, delaminating syndromes, autoimmune phenomena, CHF exacerbations, palmar plantar psoriasis and cytopenias Recommended rotating injection sites, and holding medication during and for up to 1 week after resolution of a febrile illness or open skin wound (4) Encounter for monitoring leflunomide therapy: Code(s): Z51.81 - Encounter for therapeutic drug level monitoring; Z79.899 - Other long-term (current) drug therapy Plan: #Long-term leflunomide Discussed with patient the benefits and risks of leflunomide for managing the rheumatic condition Benefits include: - Reduced pain, maintenance of remission and reduction of flares Risks include: - GI upset especially diarrhea, skin rash, cytopenias, hepatotoxicity, weight loss, neuropathy Monitoring: ?CBC, BMP, LFTs, hepatitis B and C serologies (5) Trochanteric bursitis, left hip: Code(s): M70.62 - Trochanteric bursitis, left hip Category: Medical Plan: #Trochanteric bursitis Patient with left trochanteric bursitis s/p injection Plan I spent 35 minutes reviewing the record and labs, seeing the patient, discussing the treatment plan and documenting in the medical record Orders: Orders Cyclic Citrullinated Peptide 3 Months M05.9 - Rheumatoid arthritis with rheumatoid factor, unspecified, M85.80 - Other specified disorders of bone density and structure, unspecified site Erythrocyte Sedimentation Rate 3 Months M05.9 - Rheumatoid arthritis with rheumatoid factor, unspecified, M85.80 - Other specified disorders of bone density and structure, unspecified site Complete Blood Count Auto Diff 3 Months M05.9 - Rheumatoid arthritis with rheumatoid factor, unspecified, M85.80 - Other specified disorders of bone density and structure, unspecified site Comprehensive Met. Panel 3 Months M05.9 - Rheumatoid arthritis with rheumatoid factor, unspecified, M85.80 - Other specified disorders of bone density and structure, unspecified site C Reactive Protein 3 Months M05.9 - Rheumatoid arthritis with rheumatoid factor, unspecified, M85.80 - Other specified disorders of bone density and structure, unspecified site Rheumatoid Factor 3 Months M05.9 - Rheumatoid arthritis with rheumatoid factor, unspecified, M85.80 - Other specified disorders of bone density and structure, unspecified site Hepatitis A,B,C Profile 3 Months Z51.81 - Encounter for therapeutic drug level monitoring, Z79.620 - 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
== END 2024-07-12 10:49 | disposition home or self-care (01) ==
PROVIDERS: PCP Internal Medicine; Visit Provider Student in an Organized Health Care Education/Training Program
DX: M05.79 Rheumatoid arthritis with rheumatoid factor of multiple sites without organ or systems involvement (principal); M85.80 Other specified disorders of bone density and structure, unspecified site; Z79.620 Long term (current) use of immunosuppressive biologic; Z51.81 Encounter for therapeutic drug level monitoring; Z79.899 Other long term (current) drug therapy; M70.62 Trochanteric bursitis, left hip
CPT/HCPCS: 20610; 99214

== ENCOUNTER → 2024-07-12 09:32 | Outpatient (BNVA) | payer MEDICARE, SELFPAY | PROVIDERS: PCP Internal Medicine; Visit Provider Student in an Organized Health Care Education/Training Program | DX: M05.9 Rheumatoid arthritis with rheumatoid factor, unspecified (principal); M85.80 Other specified disorders of bone density and structure, unspecified site; M70.62 Trochanteric bursitis, left hip; Z79.620 Long term (current) use of immunosuppressive biologic; Z79.899 Other long term (current) drug therapy; Z51.81 Encounter for therapeutic drug level monitoring | CPT/HCPCS: 20610; 99212 ==

== ENCOUNTER 2024-08-08 10:23 | Outpatient (AMB) | payer MEDICARE, SELFPAY ==
[2024-08-08 10:29] VITALS: BP 124/82; PULSE 74; BMI 40.3
--- NOTE | 2024-08-08 10:29 | A.OFFVIS_ITS ---
Vital Signs 08/08/24 10:29 Height 5 ft 2 in Weight 220 lb 7.396 oz BMI 40.3 BP 124/82 Blood Pressure Location Rt brachial Position Sitting Pulse 74 Pulse Source Pulse Oximeter Intake Visit Reasons: f/u T2DM/CONFIRMED Intake Note: Patient presents today to re-establish treatment for Type 2 Diabetes Mellitus: Last Diabetic eye exam was on: 2023 Last Podiatry exam was on: Does not see a In Service Educator Most recent HbA1c: 6.6%, 08/08/2024 Random Glucose- 119 mg/dL, Today Detail Maker And Fitter Required: No Accompanied by: Self / Same As Patient Allergies codeine [Codeine] Allergy (Severe, Verified 08/08/24 10:33) DIFFICULTY BREATHING Penicillins Adverse Reaction (Intermediate, Verified 08/08/24 10:33) stomach upset semaglutide [From Ozempic] Adverse Reaction (Verified 08/08/24 10:33) Vomiting Medication List - Last Reconciled 08/08/24 by Lucita Mckenzie PA-C adalimumab (Humira(CF) Pen) 40 mg (0.4 mL) subcut Q2W 56 days albuterol sulfate 90 mcg/actuation 2 puffs inhalation Q6H PRN blood sugar diagnostic (OneTouch Ultra Test strips) USE 3 TIMES DAILY blood-glucose meter,continuous (Dexcom G7 Concrete Smoother) As directed blood-glucose sensor (Dexcom G7 Sensor device) CHANGE EVERY 10 DAYS DIRECTED bumetanide 1 mg PO DAILY calcium carbonate (Calcium 600) 600 mg PO BID gabapentin (Neurontin) 300 mg PO BEDTIME insulin lispro (Humalog U-100 Insulin) Inject up to 70 units with patch pump daily subcutaneously daily; lansoprazole (Prevacid 24Hr) 15 mg PO DAILY leflunomide 10 mg PO DAILY lisinopril 20 mg PO DAILY 30 days methocarbamol 500 mg PO BID PRN pen needle, diabetic (Easy Comfort Pen Wink) As directed once a day pen needle, diabetic (BD Opal 2nd Gen Pen Needle) USE ONCE DAILY sub-q insulin device, 40 unit (V-GO 40 device) USE DIRECTED HPI HPI f/u T2DM/CONFIRMED: Details: Patient is a 73 yo female with DM type 2 diagnosed in her early 40s who presents for continued management of diabetes. She has a significant past medical history of clear cell renal carcinoma, chronic kidney disease, rheumatoid arthritis, hyperlipidemia and diabetes. She was last seen in January by Dr. Dave. -she tells me today that her adult school teacher wants her to see Dr. Dave for management of her hypercalcemia as he believes it is related to the parathyroid gland. DM: Her A1c is 6.6 today. She states that despite her A1c being good she is very stressed because she feels her blood sugars drop frequently. Her Dexcom G7 sensor does alarm at 70 and 250. She states that it was stressful because it goes off a lot being elevated as well. She can feel when she is going to go low. She states it is happening multiple times a week. Toujeo 40 units, 6 units of humalog for breakfast, 2-4 units lunch (if she eats) and 16-18 units for supper. -she states that her numbers are also frustrating because she almost never eats lunch and her blood sugars go high between 14:00 and 18:00. She states that she is worried about giving herself any insulin because she had nothing to eat. -most of her low blood sugars are happening overnight. Micro and macrovascular complications: neuropathy, proliferative retinopathy, nephropathy but no macrovascular disease. Previous medications: Jardiance , Januvia, Victoza, Ozempic, Trulicity Hypoglycemia: very rare Hyperglycemia: +urinary frequency (on diuretic), +nocturia, denies polydypsia Blood glucose monitoring: Dexcom Sensor avg glucose 165 with GMI of 7.2, 66% in range with 34 % hyperglycemia and no hypoglycemia. She states that even though it says no hypoglycemia she is correcting because she is feeling it drop around 70. She uses glucose tabs to correct. Clinical Educator - CDE education: Recently. Has also met with a dietitian and is felt that this is helpful. In Service Educator: goes every 8 weeks Dental exam: last month. Ophthalmology evaluation: ou proliferative diabetic retinopathy, goes twice a year for evaluation Other specialists: adult school teacher - Dr. Santiago, School Counsellor. PFSH Medical History Hypogammaglobulinemia Trochanteric bursitis of both hips Leg pain, bilateral Herpes zoster vaccination declined COVID-19 vaccine dose declined Diabetic retinopathy Tubular adenoma of colon Osteopenia History of severe acute respiratory syndrome coronavirus 2 (SARS-CoV-2) disease Obesity due to excess calories 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 Postlaminectomy syndrome MGUS (monoclonal gammopathy of unknown significance) 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 mellitus) Diabetic retinopathy associated with type 2 diabetes mellitus CKD (chronic kidney disease) stage 3, GFR 30-59 ml/min MCC (current) use of insulin GERD (gastroesophageal reflux disease) Type 2 diabetes mellitus with diabetic polyneuropathy Essential hypertension Dyslipidemia Surgical History Hx of colonoscopy Hx laparoscopic cholecystectomy Hx of tonsillectomy Hx of cataract surgery History of back surgery Family History Mother Diabetes CVD (cardiovascular disease) HTN (hypertension) Father Hodgkin disease Brother Hodgkin disease Sister Pancreatic cancer Sister Lung cancer Non-Hodgkin lymphoma Paternal Uncle Colon cancer Social History Household Members: None Housing: Condominium Alcohol intake: never Patient Tobacco Use Status: Former Tobacco user Tobacco use type: Cigarette Cigarettes Per Day: 50 Years Smoked: 20 e-Cigarette/Vaping Use: Never Used Advance Directives Date on File: 02/08/22 service: No Current occupational status: retired Cognitive needs: No Hearing needs: No Vision needs: Yes Physical Exam Vital Signs: Last Vital Signs Pulse 74 08/08/24 10:29 BP 124/82 08/08/24 10:29 BMI result Body Mass Index 40.3 Const Orientation/consciousness: patient oriented x3 Neck Neck: Yes no lymphadenopathy Thyroid: Thyroid normal Carotids: no bruits Resp Auscultation: clear to auscultation bilaterally Cardio Rate: regular rate Rhythm: regular rhythm Heart sounds: S1 normal heart sound present and S2 normal heart sound present Neuro General: patient oriented x3, gait normal and no focal motor deficits Extrem General: Yes normal to inspection Office Procedures Glucose Monitoring Details Details: See HPI 64841 - Glucose monitoring, continuous-physician I&R Procedure code (CPT) selection complete Results AMB Hemoglobin A1c AMB Hemoglobin A1c 6.6 % Last Edit by CARMITA Wayne on 08/08/24 10:49 Results Reviewed Results Reviewed: Laboratory Last Values Glucose (Clinic) 119 mg/dL (60-115) H 08/08/24 10:35 Hgb A1c (Clinic) 6.6 % (4.0-6.0) H 08/08/24 10:43 Laboratory Tests 01/04/24 04/25/24 07/09/24 10:35 08:23 08:22 Sodium 140 Potassium 4.7 Chloride 105 Carbon Dioxide 25 Anion Gap 15 BUN 38 H Creatinine 1.68 H Estimated GFR 30 Glucose (Clinic) Random Glucose 131 H AST 20 ALT 15 Triglycerides 177 H Cholesterol 172 LDL Cholesterol, Calc 88 HDL Cholesterol 49 Urine Microalbumin 16.0 Microalb/Creat Ratio 40.1 H Protein/Creatinin Ratio TNP 08/08/24 10:35 Sodium Potassium Chloride Carbon Dioxide Anion Gap BUN Creatinine Estimated GFR Glucose (Clinic) 119 H Random Glucose AST ALT Triglycerides Cholesterol LDL Cholesterol, Calc HDL Cholesterol Urine Microalbumin Microalb/Creat Ratio Protein/Creatinin Ratio Assessment & Plan Assessment & Plan (1) MCC (current) use of insulin: Code(s): Z79.4 - exterminator helper termite (current) use of insulin Category: Medical Plan: We will switch from Toujeo to Tresiba for hopefully more stable control. I do believe that the Toujeo was becoming ineffective mid to late day. We will continue at 40 units and reduce the concentration to the U 200. I will have her reduce the amount of Humalog with supper to 10 units. We will do a short term follow up in 2 weeks. Sooner if needed. (2) Diabetic retinopathy associated with type 2 diabetes mellitus: Code(s): E11.319 - Type 2 diabetes mellitus with unspecified diabetic retinopathy without macular edema Category: Medical Plan: As above. Following with Ophthalmology. Orders: Orders AMB Hemoglobin A1c Today E11.42 - Type 2 diabetes mellitus with diabetic polyneuropathy, Z79.4 - exterminator helper termite (current) use of insulin Medications: New insulin degludec (Tresiba FlexTouch U-200 insulin) 40 units (0.2 mL) subcut BEDTIME 9 mL 5RF pen needle, diabetic (Novofine 32) Use daily As directed for insulin 100 ea 3RF E11.319 - Type 2 diabetes mellitus with unspecified diabetic retinopathy without macular edema, Z79.4 - MCC (current) use of insulin Discontinued pen needle, diabetic (Easy Comfort Pen Wink) Discontinued Reason: Duplicate As directed once a day 100 ea 4RF pen needle, diabetic (BD Opal 2nd Gen Pen Needle) Discontinued Reason: Doctor's Order USE ONCE DAILY 100 ea 5RF E11.42 - Type 2 diabetes mellitus with diabetic polyneuropathy, Z79.4 - exterminator helper termite (current) use of insulin Coding Level of Care Code Est Pt Level 4 (52511) Diagnoses exterminator helper termite (current) use of insulin Z79.4 Diabetic retinopathy associated with type 2 diabetes mellitus E11.319 CPT Codes Details - CPT: 93980 - Glucose monitoring, continuous-physician I&R ([id number])
[2024-08-08 10:41] LABS: Glucose, Whole Blood 119 mg/dL (60-115)
== END 2024-08-08 11:16 | disposition home or self-care (01) ==
PROVIDERS: PCP Internal Medicine; Visit Provider Physician Assistant
DX: E11.42 Type 2 diabetes mellitus with diabetic polyneuropathy (principal); Z79.4 Long term (current) use of insulin; E11.319 Type 2 diabetes mellitus with unspecified diabetic retinopathy without macular edema

== ENCOUNTER → 2024-08-08 10:23 | Outpatient (BNVA) | payer MEDICARE, SELFPAY | PROVIDERS: PCP Internal Medicine; Visit Provider Physician Assistant | DX: E11.319 Type 2 diabetes mellitus with unspecified diabetic retinopathy without macular edema (principal); Z79.4 Long term (current) use of insulin | CPT/HCPCS: 82947; 83036; 99212 ==

== ENCOUNTER 2024-08-22 10:46 | Outpatient (AMB) | payer MEDICARE, SELFPAY ==
[2024-08-22 11:39] VITALS: BP 140/60; PULSE 64; O2SAT 96; BMI 41.1
--- NOTE | 2024-08-22 11:39 | MHC.PC.OV ---
Vital Signs 08/22/24 11:39 Height 5 ft 2 in Weight 225 lb BMI 41.1 BP 140/60 H Blood Pressure Location Rt brachial Position Sitting Pulse 64 Pulse Source Pulse Oximeter Pulse Oximetry (%) 96 Oxygen Delivery Method Room Air Intake Visit Reasons: 4 month follow u Intake Note: Pt is here today for her 4mo. f/u Allergies codeine [Codeine] Allergy (Severe, Verified 08/26/24 09:59) DIFFICULTY BREATHING Penicillins Adverse Reaction (Intermediate, Verified 08/26/24 09:59) stomach upset semaglutide [From Ozempic] Adverse Reaction (Verified 08/26/24 09:59) Vomiting Medication List - Last Reconciled 08/22/24 by Lyndsay Yan MD adalimumab (Humira(CF) Pen) 40 mg (0.4 mL) subcut Q2W 56 days albuterol sulfate 90 mcg/actuation 2 puffs inhalation Q6H PRN blood sugar diagnostic (HipvanTouch Ultra Test strips) USE 3 TIMES DAILY blood-glucose meter,continuous (DexEndocrine Technology G7 Director Of First Impressions) As directed blood-glucose sensor (Dexcom G7 Sensor device) CHANGE EVERY 10 DAYS DIRECTED bumetanide 1 mg PO DAILY gabapentin (Neurontin) 300 mg PO BEDTIME insulin glargine U-300 conc (Toujeo Max U-300 SoloStar) 40 units subcut DAILY insulin lispro (Humalog U-100 Insulin) Inject up to 70 units with patch pump daily subcutaneously daily; lansoprazole (Prevacid 24Hr) 15 mg PO DAILY leflunomide 10 mg PO DAILY lisinopril 20 mg PO DAILY 30 days pen needle, diabetic (Novofine 32) Use daily As directed for insulin pen needle, diabetic (BD Ultra-Fine Opal Pen Needle) Use 4x a day As directed pravastatin 40 mg PO BEDTIME sub-q insulin device, 40 unit (V-GO 40 device) USE DIRECTED Tobacco use date assessed: 08/22/24 Fall risk assessment: No Falls in past year Last assessed Fall Risk: 08/22/24 Dental Screening Dental Screen Date: 04/18/24 Did you have a dental visit in the last 12 months?: Yes Did you have a dental problem in the last 6 months where you did not have access to dental care?: No Was dental information given to patient?: Patient has dentist HPI 4 month follow u HPI Details 73 lady with with past medical history of diabetes mellitus currently followed by endocrine clinic, has history of clear cell renal carcinoma, chronic kidney disease, rheumatoid arthritis, hyperlipidemia, here today for follow-up. Blood pressure is better controlled at present on present treatment. Latest fasting labs showed hemoglobin A1c at 6.6%, overdue to get her lipids checked. [facility] Medical History Hypogammaglobulinemia Trochanteric bursitis of both hips Leg pain, bilateral Herpes zoster vaccination declined COVID-19 vaccine dose declined Diabetic retinopathy Tubular adenoma of colon Osteopenia History of severe acute respiratory syndrome coronavirus 2 (SARS-CoV-2) disease Obesity due to excess calories 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 Postlaminectomy syndrome MGUS (monoclonal gammopathy of unknown significance) 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 mellitus) Diabetic retinopathy associated with type 2 diabetes mellitus CKD (chronic kidney disease) stage 3, GFR 30-59 ml/min 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 GERD (gastroesophageal reflux disease) Type 2 diabetes mellitus with diabetic polyneuropathy Essential hypertension Dyslipidemia Surgical History Hx of colonoscopy Hx laparoscopic cholecystectomy Hx of tonsillectomy Hx of cataract surgery History of back surgery Family History Mother Diabetes CVD (cardiovascular disease) HTN (hypertension) Father Hodgkin disease Brother Hodgkin disease Sister Pancreatic cancer Sister Lung cancer Non-Hodgkin lymphoma Paternal Uncle Colon cancer Social History Household Members: None Housing: Condominium Alcohol intake: never Patient Tobacco Use Status: Former Tobacco user Tobacco use type: Cigarette Cigarettes Per Day: 50 Years Smoked: 20 e-Cigarette/Vaping Use: Never Used Advance Directives Date on File: 02/08/22 service: No Current occupational status: retired Cognitive needs: No Hearing needs: No Vision needs: Yes Questionnaire PHQ-9 Over the last 2 weeks, how often have you been bothered by any of the following problems? 1. Little interest or pleasure in doing things: not at all 2. Feeling down, depressed, or hopeless: not at all 3. Trouble falling or staying asleep, or sleeping too much: not at all 4. Feeling tired or having little energy: not at all 5. Poor appetite or overeating: not at all 6. Feeling bad about yourself - or that you are a failure or have let yourself or your family down: not at all 7. Trouble concentrating on things, such as reading the newspaper or watching television: not at all 8. Moving or speaking so slowly that other people could have noticed. Or the opposite - being so fidgety or restless that you have been moving around a lot more than usual: not at all 9. Thoughts that you would be better off or of hurting yourself in some way: not at all Total score: 0 Source: Developed by Drs. Bang Wilkerson, Ivett Sidhu, Alejandro Momin and colleagues, with an educational pretty from [employer]. Thrive Questionnaire Date Thrive assessed: 08/22/24 I am a: Patient What is your living situation today?: I have a steady place to live Within the past 12 months, did the food you bought not last and you didn't have the money to get more?: I choose not to answer this question Within the past 12 months, did you worry whether your food would run out before you got money to buy more?: Never true Do you have trouble paying for medicines?: No Do you have trouble getting transportation to medical appointments?: No Do you have trouble paying your heating and electricity bill?: No Do you have trouble taking care of your child, family member or friend?: No THRIVE Score: 0 JENY-7 AMB Questionnaire JENY-7 Date JENY - 7 assessed: 12/18/23 Source: Developed by Drs. Bang Wilkerson, Ivett Sidhu, Alejandro Momin and colleagues, with an educational pretty from [employer]. Review of Systems Const Denies fever(s) and Denies weakness Eyes Denies change in vision ENT Reports no additional complaints Card Denies chest pain, Denies irregular heart rhythm and Denies dyspnea Resp Denies cough and Denies dyspnea GI Denies abdominal pain Denies hematuria, Denies dysuria, Denies urinary hesitancy and Denies urinary urgency Musc Reports back pain (minimal lumbar region), Denies numbness and Denies tingling Skin/Breast Denies breast pain, Denies breast mass, Denies erythema and Denies rash Neuro Denies focal weakness, Denies numbness, Denies tingling, Denies paresthesias and Denies weakness Psych Reports no additional complaints Endo Reports no additional complaints Eduardo/Lymph Reports no additional complaints Aller/Immun Reports no additional complaints Physical exam (Primary Care) Vital Signs: Last Vital Signs Pulse 64 08/22/24 11:39 BP 140/60 H 08/22/24 11:39 Pulse Ox 96 08/22/24 11:39 Oxygen Delivery Method Room Air 08/22/24 11:39 BMI result Body Mass Index 41.1 Tobacco/Smoking Status: Tobacco use Status Tobacco use date assessed 08/22/24 08/22/24 11:43 Patient Tobacco Use Status Former Tobacco user 08/22/24 11:41 Tobacco use type Cigarette 08/22/24 11:41 e-Cigarette/Vaping Use Never Used 08/22/24 11:41 PHQ-9: PHQ-9 Score PHQ-9: Total score 0 08/22/24 11:50 Thrive Assessment: Date of Thrive Assessment Date Thrive assessed 08/22/24 08/22/24 11:41 Const General: no acute distress Nutritional Appearance: obese Orientation/consciousness: patient oriented x3 HENMT Head: Yes normocephalic Eyes General: appearance normal, both eyes and all related structures Neck Neck: Yes full ROM, Yes no lymphadenopathy and Yes supple Resp Auscultation: clear to auscultation bilaterally Cardio Other: S1-S2 present regular rate and rhythm GI Palpation (GI): Soft to palpation, nontender and no masses General: Yes no CVA tenderness Back/Spine/Pelvis Back: no CVA tenderness Skin General skin exam: no rashes or lesions noted Neuro General: patient oriented x3, gait normal, tone normal, moves all extremities, Normal light touch and pain sensation, no focal motor deficits and CN's II-XI intact bilaterally Extrem General: Yes full ROM, Yes no joint enlargement, Yes no calf tenderness and Yes normal gait Results Reviewed Results Reviewed: olivia: Paola Vargas Age/Sex: 73/F : 1950 Unit#: [id number] Attend Dr: Ivy Martin [facility] Re07/09/24 Status: DEP REF Location: [facility] Disch: SPEC : [id number] GUI: 07/09/24 STATUS: COMP REQ : [id number] RECD: 07/09/24-[address]: Ivy Martin [facility] COMP: 07/09/24 ENTERED: 07/09/[address] [facility] DR: Lyndsay Yan MD ORDERED: CBC Auto Diff Test Result Flag Reference WBC 7.6 4.8-10.8 X10*3/uL RBC 4.41 4.20-5.50 X10*6/uL HGB 12.4 12.0-16.0 g/dl HCT 39.0 37.0-47.0 % MCV 88.4 80.0-98.0 fL MCH 28.1 27.0-33.0 pg MCHC 31.8 31.0-35.0 g/dl RDW 14.5 11.0-16.0 % PLT 316 # 160-400 X10*3/uL MPV 11.2 9.4-12.3 fL Neut Pct Auto 50.5 45-73 % ImGran Pct Auto 0.8 H 0.0-0.4 % Lymp Pct Auto 29.1 20-40 % [place] Pct Auto 12.2 H 2-11 % Eos Pct Auto 6.4 H 0-4 % Baso Pct Auto 1.0 0-2 % NRBC Pct Auto 0.0 0.0-0.2 /100WBC ANC Neut Abs # 3.9 2.0-8.3 x10*3/uL ImGran Abs Auto 0.06 H 0.00-0.03 X10*3/uL Lymph Abs Auto 2.2 1.2-4.9 X10*3/uL [place] Abs Auto 0.9 0.1-1.2 X10*3/uL Eos Abs Auto 0.5 H 0.0-0.4 X10*3/uL Baso Abs Auto 0.1 0.0-0.2 X10*3/uL NRBC Abs Auto 0.000 0.0-0.012 X10*3/uL Name: Paola Vargas Age/Sex: 73/F : 1950 Unit#: [id number] Attend Dr: Ivy Martin [facility] Re07/09/24 Status: DEP [facility] Disch: SPEC : [id number] GUI: 07/09/24 STATUS: COMP REQ : [id number] RECD: 07/09/24-[address]: Ivy Martin [facility] COMP: 07/09/24-1146 ENTERED: 07/09/[address]: Lyndsay Yan MD ORDERED: CMP, C Reactive Prot Test Result Flag Reference Sodium 140 135-145 mmol/L Potassium 4.7 3.3-5.1 mmol/L CL 105 96-108 mmol/L CO2 25 22-29 mmol/L Gap 15 12-20 BUN 38 H 9-16 mg/dL Creat 1.68 H 0.5-1.4 mg/dL EGFR 30 NOTE: For -Latvian individuals, multiply the result by 1.210. Chronic Kidney Disease: Estimated GFR < 60 mL/min/1.73m2 Severe Kidney Disease: Estimated GFR < 15 mL/min/1.73m2 Glucose, Random 131 H 60-115 mg/dL CA 10.0 8.4-10.2 mg/dL Total Bili 0.5 0.0-1.0 mg/dL AST (GOT) 20 5-31 U/L ALT (GPT) 15 0-31 U/L CRP 0.78 H < or = 0.50 mg/dL Protein, Total 7.3 6.5-8.0 g/dL Alb 4.1 3.5-5.0 g/dL Alk Phos 67 39-117 U/L Laboratory Tests 08/08/24 08/08/24 10:35 10:43 Glucose (Clinic) 119 H Hgb A1c (Clinic) 6.6 H Coding Level of Care Code Est Pt Level 4 (85746) Complex EM visit Add On G2211 Diagnoses Dyslipidemia E78.5 Type 2 diabetes mellitus with diabetic polyneuropathy, with long-term current use of insulin E11.42; Z79.4 Diabetes mellitus 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 Continue pravastatin 40 mg at bedtime, refills sent, continue adherence to low-cholesterol diet and regular exercise, at least 30 minutes 3 to 4 times a week. Advised patient to make healthy food choices, eat more fruits, vegetables, whole grains, wild caught fish and low-fat dairy. Limit amount of meat and fried or fatty food products, as well as processed foods and fast foods. Follow-up scheduled with repeat fasting lipid panel in 05/2025 (2) Type 2 diabetes mellitus with diabetic polyneuropathy: Code(s): E11.42 - Type 2 diabetes mellitus with diabetic polyneuropathy Category: Medical Qualifiers: Diabetes mellitus terminal make up operator insulin use: with longterm use Qualified Code(s): E11.42 - Type 2 diabetes mellitus with diabetic polyneuropathy; Z79.4 - MCC (current) use of insulin Plan: Followed at endocrine clinic Medications: New pravastatin 40 mg PO BEDTIME 90 tabs 4RF E78.5 - Hyperlipidemia, unspecified
== END 2024-08-22 14:22 | disposition home or self-care (01) ==
PROVIDERS: PCP Internal Medicine; Visit Provider Internal Medicine
DX: E78.5 Hyperlipidemia, unspecified (principal); E11.42 Type 2 diabetes mellitus with diabetic polyneuropathy; Z79.4 Long term (current) use of insulin

== ENCOUNTER → 2024-08-22 10:46 | Outpatient (BNVA) | payer MEDICARE, SELFPAY | PROVIDERS: PCP Internal Medicine; Visit Provider Internal Medicine | DX: E11.42 Type 2 diabetes mellitus with diabetic polyneuropathy (principal); Z79.4 Long term (current) use of insulin; E78.5 Hyperlipidemia, unspecified | CPT/HCPCS: 96127; 99212 ==

== ENCOUNTER 2024-08-26 09:48 | Outpatient (AMB) | payer MEDICARE, SELFPAY ==
--- NOTE | 2024-08-26 09:49 | A.OFFVIS_ITS ---
Vital Signs 08/26/24 09:50 Height 5 ft 2 in Weight 227 lb 8.273 oz BMI 41.6 BP 138/62 Blood Pressure Location Lt brachial Position Sitting Pulse 77 Pulse Source Pulse Oximeter Intake Visit Reasons: DM/CONFIRMED Intake Note: Patient presents today for D2MT follow up visit. Last Diabetic Eye exam: 11/2023 Last Podiatry Visit: Doesn't have one Random Glucose: 107 mg/dl HgA1c: 6.6% 08/08/24 Tape Rules Printing Machine Operator Required: No Accompanied by: Self / Same As Patient Allergies codeine [Codeine] Allergy (Severe, Verified 08/26/24 09:59) DIFFICULTY BREATHING Penicillins Adverse Reaction (Intermediate, Verified 08/26/24 09:59) stomach upset semaglutide [From Ozempic] Adverse Reaction (Verified 08/26/24 09:59) Vomiting Medication List - Last Reconciled 08/26/24 by Lucita Mckenzie PA-C adalimumab (Humira(CF) Pen) 40 mg (0.4 mL) subcut Q2W 56 days albuterol sulfate 90 mcg/actuation 2 puffs inhalation Q6H PRN blood sugar diagnostic (OneTouch Ultra Test strips) USE 3 TIMES DAILY blood-glucose meter,continuous (Dexcom G7 Explosives Handler) As directed blood-glucose sensor (Dexcom G7 Sensor device) CHANGE EVERY 10 DAYS DIRECTED bumetanide 1 mg PO DAILY gabapentin (Neurontin) 300 mg PO BEDTIME insulin glargine U-300 conc (Toujeo Max U-300 SoloStar) 40 units subcut DAILY insulin lispro (Humalog U-100 Insulin) Inject up to 70 units with patch pump daily subcutaneously daily; lansoprazole (Prevacid 24Hr) 15 mg PO DAILY leflunomide 10 mg PO DAILY lisinopril 20 mg PO DAILY 30 days pen needle, diabetic (Novofine 32) Use daily As directed for insulin pen needle, diabetic (BD Ultra-Fine Opal Pen Needle) Use 4x a day As directed pravastatin 40 mg PO BEDTIME sub-q insulin device, 40 unit (V-GO 40 device) USE DIRECTED HPI HPI DM/CONFIRMED: Details: Patient is a 73 yo female with DM type 2 diagnosed in her early 40s who presents for continued management of diabetes. She has a significant past medical history of clear cell renal carcinoma, chronic kidney disease, rheumatoid arthritis, hyperlipidemia and diabetes. -she tells me today that her md allergy immunology wants her to see Dr. Dave for management of her hypercalcemia as he believes it is related to the parathyroid gland. DM: Her A1c is 6.6 today. Since our last visit she states that she has had less hypoglycemic events. At our last visit we reduced the supper time Humalog to 10 units as opposed to 18. She continues on Humalog 6 units for breakfast an d 2-4 units for lunch if she eats. She was also switched from Toujeo to Tresiba as her blood sugars were spiking late afternoon/early evening. She has not yet picked up the Tresiba. CGM-average glucose 155, 86% usage, glucose variability 40. Very hyperglycemic 2%, hyperglycemic 21%, in range 77%, hypoglycemic less than 1% Micro and macrovascular complications: neuropathy, proliferative retinopathy, nephropathy but no macrovascular disease. Previous medications: Jardiance , Januvia, Victoza, Ozempic, Trulicity Hypoglycemia: very rare Hyperglycemia: +urinary frequency (on diuretic), +nocturia, denies polydypsia Blood glucose monitoring: Dexcom Sensor avg glucose 165 with GMI of 7.2, 66% in range with 34 % hyperglycemia and no hypoglycemia. She states that even though it says no hypoglycemia she is correcting because she is feeling it drop around 70. She uses glucose tabs to correct. Ecmo Specialist - CDE education: Recently. Has also met with a dietitian and is felt that this is helpful. Film Touch Up Inspector: goes every 8 weeks Dental exam: last month. Ophthalmology evaluation: ou proliferative diabetic retinopathy, goes twice a year for evaluation Other specialists: md allergy immunology - Dr. Santiago, [place]. CV: Blood pressure today in the office is 138/62. She is on lisinopril 20 mg daily. Cholesterol is controlled with pravastatin 40 mg. [facility] Medical History (Updated 08/26/24 @ 10:24 by Lucita Mckenzie PA-C) Hypogammaglobulinemia Trochanteric bursitis of both hips Leg pain, bilateral Herpes zoster vaccination declined COVID-19 vaccine dose declined Diabetic retinopathy Tubular adenoma of colon Osteopenia History of severe acute respiratory syndrome coronavirus 2 (SARS-CoV-2) disease Obesity due to excess calories 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 Postlaminectomy syndrome MGUS (monoclonal gammopathy of unknown significance) 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 mellitus) Diabetic retinopathy associated with type 2 diabetes mellitus CKD (chronic kidney disease) stage 3, GFR 30-59 ml/min 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 Alcohol intake: never Patient Tobacco Use Status: Former Tobacco user Tobacco use type: Cigarette Cigarettes Per Day: 50 Years Smoked: 20 e-Cigarette/Vaping Use: Never Used Advance Directives Date on File: 02/08/22 service: No Current occupational status: retired Cognitive needs: No Hearing needs: No Vision needs: Yes Physical Exam Vital Signs: Last Vital Signs Pulse 77 08/26/24 09:50 BP 138/62 08/26/24 09:50 BMI result Body Mass Index 41.6 Const Orientation/consciousness: patient oriented x3 Neck Neck: Yes no lymphadenopathy Thyroid: Thyroid normal Carotids: no bruits Resp Auscultation: clear to auscultation bilaterally Cardio Rate: regular rate Rhythm: regular rhythm Heart sounds: S1 normal heart sound present and S2 normal heart sound present Neuro General: patient oriented x3, gait normal and no focal motor deficits Extrem General: Yes normal to inspection Results Reviewed Results Reviewed: Laboratory Last Values Glucose (Clinic) 107 mg/dL (60-115) 08/26/24 10:01 Laboratory Tests 04/25/24 06/10/24 07/09/24 08:23 10:23 08:22 Creatinine 1.55 H 1.68 H Estimated GFR 33 30 Hgb A1c (Clinic) Triglycerides 177 H Cholesterol 172 LDL Cholesterol, Calc 88 HDL Cholesterol 49 08/08/24 10:43 Creatinine Estimated GFR Hgb A1c (Clinic) 6.6 H Triglycerides Cholesterol LDL Cholesterol, Calc HDL Cholesterol Assessment & Plan Assessment & Plan (1) Type 2 diabetes mellitus with diabetic polyneuropathy: Code(s): E11.42 - Type 2 diabetes mellitus with diabetic polyneuropathy Category: Medical Qualifiers: Diabetes mellitus halfway insulin use: with rodent exterminator use Qualified Code(s): E11.42 - Type 2 diabetes mellitus with diabetic polyneuropathy; Z79.4 - 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 We will switch from Toujeo to Tresiba. I have recent this in as she has not heard anything about the Tresiba. Reviewed signs and symptoms of hyper and hypoglycemia that would require emergent medical treatment. Three-month follow up. Sooner if needed. (2) HTN (hypertension): Code(s): I10 - Essential (primary) hypertension Category: Medical Plan: Continue current regimen (3) CKD (chronic kidney disease) stage 2, GFR 60-89 ml/min: Code(s): N18.2 - Chronic kidney disease, stage 2 (mild) Category: Medical Plan: Stable. Discussed the importance of glycemic control, blood pressure control and avoidance of NSAIDs. (4) Dyslipidemia: Code(s): E78.5 - Hyperlipidemia, unspecified Category: Medical Plan: Continue pravastatin. Medications: New insulin degludec (Tresiba FlexTouch U-200 insulin) 40 units (0.2 mL) subcut DAILY 9 mL 1RF Coding Level of Care Code Est Pt Level 4 (21227) Complex EM visit Add On G2211 Diagnoses Type 2 diabetes mellitus with diabetic polyneuropathy, with long-term current use of insulin E11.42; Z79.4 Diabetes mellitus rodent exterminator insulin use: with halfway use HTN (hypertension) I10 CKD (chronic kidney disease) stage 2, GFR 60-89 ml/min N18.2 Dyslipidemia E78.5
[2024-08-26 09:50] VITALS: BP 138/62; PULSE 77; BMI 41.6
[2024-08-26 10:06] LABS: Glucose, Whole Blood 107 mg/dL (60-115)
== END 2024-08-26 10:18 | disposition home or self-care (01) ==
PROVIDERS: PCP Internal Medicine; Visit Provider Physician Assistant
DX: E11.42 Type 2 diabetes mellitus with diabetic polyneuropathy (principal); Z79.4 Long term (current) use of insulin; I12.9 Hypertensive chronic kidney disease with stage 1 through stage 4 chronic kidney disease, or unspecified chronic kidney disease; N18.2 Chronic kidney disease, stage 2 (mild); E78.5 Hyperlipidemia, unspecified

== ENCOUNTER → 2024-08-26 09:48 | Outpatient (BNVA) | payer MEDICARE, SELFPAY | PROVIDERS: PCP Internal Medicine; Visit Provider Physician Assistant | DX: E11.22 Type 2 diabetes mellitus with diabetic chronic kidney disease (principal); N18.2 Chronic kidney disease, stage 2 (mild); E11.42 Type 2 diabetes mellitus with diabetic polyneuropathy; E78.5 Hyperlipidemia, unspecified; Z79.4 Long term (current) use of insulin | CPT/HCPCS: 82947; 99212 ==

== ENCOUNTER 2024-09-07 08:43 | Outpatient (AMB) | payer MEDICARE, SELFPAY ==
[2024-09-07 08:57] VITALS: BP 142/62; PULSE 77; BMI 41.1
--- NOTE | 2024-09-07 08:57 | MHC.OFFVIS ---
Vital Signs 09/07/24 08:57 Height 5 ft 2 in Weight 224 lb 10.417 oz BMI 41.1 BP 142/62 H Blood Pressure Location Lt brachial Position Sitting Pulse 77 Pulse Source Pulse Oximeter Intake Visit Reasons: hypercalcemia Intake Note: Patient present today Hypercalcemia follow up. Clinical Education Manager Required: No Accompanied by: Self / Same As Patient Allergies codeine [Codeine] Allergy (Severe, Verified 09/07/24 08:58) DIFFICULTY BREATHING Penicillins Adverse Reaction (Intermediate, Verified 09/07/24 08:58) stomach upset semaglutide [From Ozempic] Adverse Reaction (Verified 09/07/24 08:58) Vomiting HPI Comments Details: This is a 74-year-old white female previously seen for type 2 diabetes management now being managed by the primary care diabetes team. She was sent to endocrinology today for evaluation of hypercalcemia. Patient has CKD stage IIIB. She has a persistent elevation of PTH levels. One calcium level was checked that was slightly elevated but a subsequent 1 was normal. She has a history of mild osteoporosis with T-score of -2.8 in L-S. No hx of fracture There also is a history of small kidney stones on ultrasound. She denies any prior history of fracture. Her last nephrology visit was [place] in 07/[address] Camargo . 25- hydroxy vitamin-D levels have been normal. There has been no 24 hour urine for calcium The patient is currently not taking vitamin-D3 since Jul 2024 and calcium supplementation stopped [facility] Medical History (Updated 09/07/24 @ 09:03 by Bang Dave MD) Hyperparathyroid bone disease Hypogammaglobulinemia Trochanteric bursitis of both hips Leg pain, bilateral Herpes zoster vaccination declined COVID-19 vaccine dose declined Diabetic retinopathy Tubular adenoma of colon Osteopenia History of severe acute respiratory syndrome coronavirus 2 (SARS-CoV-2) disease Obesity due to excess calories 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 Postlaminectomy syndrome MGUS (monoclonal gammopathy of unknown significance) 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 mellitus) Diabetic retinopathy associated with type 2 diabetes mellitus CKD (chronic kidney disease) stage 3, GFR 30-59 ml/min 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 GERD (gastroesophageal reflux disease) Type 2 diabetes mellitus with diabetic polyneuropathy Essential hypertension Dyslipidemia Surgical History Hx of colonoscopy Hx laparoscopic cholecystectomy Hx of tonsillectomy Hx of cataract surgery History of back surgery Family History Mother Diabetes CVD (cardiovascular disease) HTN (hypertension) Father Hodgkin disease Brother Hodgkin disease Sister Pancreatic cancer Sister Lung cancer Non-Hodgkin lymphoma Paternal Uncle Colon cancer Social History Household Members: None Housing: Condominium Alcohol intake: never Patient Tobacco Use Status: Former Tobacco user Tobacco use type: Cigarette Cigarettes Per Day: 50 Years Smoked: 20 e-Cigarette/Vaping Use: Never Used Advance Directives Date on File: 02/08/22 service: No Current occupational status: retired Cognitive needs: No Hearing needs: No Vision needs: Yes Physical Exam Vital Signs: BMI result Body Mass Index 41.1 Assessment & Plan Assessment & Plan (1) Hyperparathyroid bone disease: Code(s): E21.0 - Primary hyperparathyroidism Category: Medical Plan: 74-year-old white female with a history of CKD stage IIIB with elevation of PTH most likely secondary hyperparathyroidism as result of CKD. Her 25 hydroxy vitamin-D level is normal and she had 1 spurious elevation of calcium. Rule out hypercalciuria as well as decreased calcium absorption as cause for elevation of PTH Plan is to reinitiate 2000 IU of vitamin D3. Will have patient follow-up with Nephrology Dr. Camargo to optimize CKD-BMD with possible use of calcitriol ideally prior to follow-up visit. Will recheck calcium, albumin, PTH, 25 hydroxy vitamin-D along with 24 hour urine for calcium and creatinine in 6-8 weeks. Would like to contact metal ceiling builder to coordinate care. Orders: Orders Vitamin D 25-OH Total 8 Weeks E21.0 - Primary hyperparathyroidism Parathyroid Hormone Intact 8 Weeks E21.0 - Primary hyperparathyroidism Albumin Level 8 Weeks E21.0 - Primary hyperparathyroidism Calcium 8 Weeks E21.0 - Primary hyperparathyroidism Calcium, 24 Hr Ur 8 Weeks E21.0 - Primary hyperparathyroidism Creatinine, 24 Hr Group 8 Weeks E21.0 - Primary hyperparathyroidism Medications: New cholecalciferol (vitamin D3) 50 mcg PO DAILY 30 caps 5RF Coding Level of Care Code Est Pt Level 3 (14481) Diagnoses Hyperparathyroid bone disease E21.0
== END 2024-09-07 09:36 | disposition home or self-care (01) ==
PROVIDERS: PCP Internal Medicine; Visit Provider Internal Medicine Endocrinology, Diabetes & Metabolism
DX: E21.0 Primary hyperparathyroidism (principal)
CPT/HCPCS: 99213

== ENCOUNTER → 2024-09-07 08:43 | Outpatient (BNVA) | payer MEDICARE, SELFPAY | PROVIDERS: PCP Internal Medicine; Visit Provider Internal Medicine Endocrinology, Diabetes & Metabolism | DX: E21.0 Primary hyperparathyroidism (principal) | CPT/HCPCS: 99212 ==

== ENCOUNTER 2024-09-27 09:41 | Outpatient (REF) | payer MEDICARE, SELFPAY ==
--- OUTSIDE RECORDS SUMMARY | 2024-09-27 09:44 | XMS_ITS | Patient Health Record ---
Author Organization [facility] Address [address] [place] [address] Care Team Providers Care Maitre D Name Role Phone Yuriy GARCIA, Lyndsay Primary Care Provider Bang Moore Unavailable [phone] ALLERGIES Allergen (clinical drug ingredient) Drug/Non Drug Allergy documented on EMR Reaction Allergy Type Onset Date Status semaglutide Ozempic Unknown Drug Allergy Activ e codeine Codeine Sulfate Unknown Drug Allergy A ctive REASON FOR REFERRAL No Information MEDICATIONS Medication SIG (Take, Route, Frequency, Duration) Notes Start Date End Date Status V-Go 40 - as directed Active Neurontin 300 MG 1 capsule Orally Onc e a day for 30 day(s) Active LoCalnesium 166.67-83.33 MG as directed Orally Active ProAir HFA 108 (90 Base) MCG/ACT 2 puffs as needed Inhalation every 6 hrs as needed Active HumaLOG 100 UNIT/ML UP TO 80 UNITS VIA V-GO 40 DAILY SUBCUTANEOUS 30 DAYS Subcutaneous for 90 Active Leflunomide 10 MG Oral for 30 Active Pravastatin Sodium 40 MG TAKE 1 TABLET BY MOUTH EVERY DAY Oral for 90 Active Gabapentin 300 MG TAKE 1 CAPSULE BY MOUTH AT BEDTIME Oral for 90 Active Bumetanide 1 MG TAKE 1 TABLET BY CARINA TH EVERY DAY Oral for 90 Active Lisinopril 20 MG Oral for 90 A ctive Calcium 600 MG 1 tablet with meals Orally Twice a day for 30 day(s) Active Insulin Lispro 100 UNIT/ML Injection for 85 Active Prevacid 15 MG 1 capsule Orally Onc e a day for 30 day(s) Active sulfaSALAzine 500 MG TAKE 1 TABLET BY MO UTH EVERY 12 HOURS Oral for 30 Not-Taking CoQ-10 100 MG 1 capsule with a aki l Orally Once a day for 30 day(s) Active Toujeo Max SoloStar 300 UNIT/ML INJECT 40 UNIT (0.1333 ML) SUBCUTANEOUSLY BEDTIME Subcutaneous for 45 Not-Taking Aspirin Adult Low Dose 81 MG 1 tablet Orally Once a day for 30 day(s) Active Tylenol Extra Strength 500 MG 1 tablet as needed Orally every 6 hrs as needed Active IMMUNIZATIONS Vaccine Route Administration Date Status Comme nts Influenza Unknown 07/12/2019 Administered Influenza Unknown 07/29/2022 Administered SOCIAL HISTORY Tobacco Use: Social History Observation Description Date Details (start date - stop date) Former Smoker NA - NA Sex Assigned At : Social History Observation Description Sex Assigned At Unknown Tobacco Use/Smoking Question Answer Notes Patient is a former smoker When did you stop smoking? over 30 years ago How long has it been since you last smoked? > 10 years Alcohol Screen Question Answer Notes Did you have a drink containing alcohol in the p ast year? No Points 0 Interpretation Negative PROBLEMS Problem Type ICD Code Onset Dates Problem Status W/U Status Risk SNOMED Code Notes Problem RUQ pain (R10.11) Active confirmed 3017 77622 Problem Diarrhea, unspecified type (R19.7) Active confirmed 64507260 Problem Change in bowel habit (R19.4) Active confirmed Change in malu l habit (64375002) Problem Calculus of gallbladder without cholecystitis without obstruction (K80.20) Active confirmed 68994416 Problem RUQ abdominal pain (R10.11) Active confirmed 787398478 Problem History of adenomatous polyp of colon (Z86.010) Active confirmed 498119918 Problem Diarrhea (R19.7) Active confirmed Diarr hea (65137006) Problem Gastroesophageal reflux disease without esophagitis (K21.9) Active confirmed 755120803 Problem Epigastric abdominal pain (R10.13) Active confirmed 91488317 Problem Left renal mass (N28.89) Active confirmed 551297829 Problem Abnormal ultrasound of left kidney (R93.422) Active confirmed [id number] PLAN OF TREATMENT Pending Test Test Name Order Date BUN 04/05/2023 LIVER PROFILE 03/24/2023 CBC w DIFF 09/02/2019 CBC w DIFF 04/05/2023 CBC w DIFF 03/24/2023 CT ABD & PELVIS WWO CONTRAST 04/05/2023 Electrolytes 04/05/2023 Creatinine 04/05/2023 CT abdomen pelvis wo/w con 04/15/2023 US abdomen complete 03/24/2023 Future Test Test Name Order Date COLONOSCOPY 09/02/2019 Next Appt Details Provider Name:Bang Little , 01/12/2025 10:40:00 AM, [address] [facility], [address], [place], [address], Insurance Providers Payer Name Payer Address Payer Phone Subscriber Number Group Number Insured Name Patient Relationship to Insured Coverage Start Date Coverage End Date [employer] [address] [place] [phone] [id number] CHANTELLE FRIEDMAN Self - patient is the insured MEDICAL (GENERAL) HISTORY Medical History History ICD Code IDDM Elevated Cholesterol Hypertension Rheumatoid arthritis Urinary incontinence- mild GERD-neg EGD in 2000 Neg. colonoscopy in 2000 and 08/2010 Denies NM,CVA,Lung disease,renal disease Bronchitis Edema of ankles Colonoscopy in 11/2019 with a single tubular adenoma removed; no colitis, biopsies neg for microscopic colitis Neg. celiac disease labs in 2018 Surgical History Surgery Date(Month/Year) Back surgery Cataract removal Tonsillectomy [facility] by Dr Dickson 10/2019
--- OUTSIDE RECORDS SUMMARY | 2024-09-27 09:44 | XMS_ITS ---
Author Organization [facility] Address [address] [place] [address] Care Team Providers Care Electrical And Radio Aircraft Mechanic Name Role Phone Yuriy GARCIA, Lyndsay Primary Care Provider Bang Moore Unavailable [phone] REASON FOR VISIT Needs CT/Labs for renal mass PROBLEMS Problem Type ICD Code Onset Dates Problem Status W/U Status Risk SNOMED Code Notes Problem Left renal mass (N28.89) Active confirmed 319897146 Problem Abnormal ultrasound of left kidney (R93.422) Active confirmed [id number] Encounters Encounter Location Date Provider Diagnosis [facility] [address] [place] [address] 04/05/2023 Bang Little Left renal mass N28.89 and Abnormal ultrasound of left kidney R93.422 ASSESSMENTS Encounter Date Diagnosis Assessment Notes Treatment Notes Treatment Clinical Notes 04/05/2023 Left renal mass (ICD-10 - N28.89) 04/05/2023 Abnormal ultrasound of left kidney (ICD-10 - R93.422) PLAN OF TREATMENT Pending Test Test Name Order Date BUN 04/05/2023 CBC w DIFF 04/05/2023 CT ABD & PELVIS WWO CONTRAST 04/05/2023 Electrolytes 04/05/2023 Creatinine 04/05/2023 Next Appt Details Provider Name:Bang Little , 01/12/2025 10:40:00 AM, [address], [address], [place], [address],
[2024-09-27 13:35] LABS: Rheumatoid Factor 13.9 IU/mL (<15.0)
[2024-09-27 13:54] LABS: Alanine Aminotransferase 17 U/L (0-31); Albumin Level 3.9 g/dL (3.5-5.0); Alkaline Phosphatase 79 U/L (39-117); Anion Gap 11 (12-20); Aspartate Amino Transferase 24 U/L (5-31); Bilirubin Total 0.4 mg/dL (0.0-1.0); Blood Urea Nitrogen 28 mg/dL (9-16); C Reactive Protein 0.91 mg/dL (< or = 0.50); Calcium 9.2 mg/dL (8.4-10.2); Carbon Dioxide 25 mmol/L (22-29); Chloride 110 mmol/L (96-108); Estimated Glomerular Filt Rate 42; Glucose Random 136 mg/dL (60-115); Potassium 4.1 mmol/L (3.3-5.1); Sodium 142 mmol/L (135-145); Total Protein 7.2 g/dL (6.5-8.0)
[2024-09-28 08:08] LABS: HBS Num1 0.06 mIU/mL (0-7.99); HBc Num1 0.13 S/CO (0.00-0.79); HBsAGNum1 0.36 S/CO (0.00-0.99); Hepatitis A Antibody IgM 0.54 Index (0-0.79); Hepatitis B Core Antibody Nonreactive (Nonreactive); Hepatitis B Surface Antigen Negative (Negative); ~HepC Num1 0.06 S/CO (0.00-0.79); ~Hepatitis A Antibody IgM Nonreactive (Nonreactive); ~Hepatitis B Surface Antibody NONREACTIVE (Nonreactive); ~Hepatitis C Antibody Nonreactive (Nonreactive)
[2024-09-29 17:18] LABS: Cyclic Citrullinated Peptide 31 UNITS
== END 2024-09-27 09:42 | disposition home or self-care (01) ==
LOC: HO.HMGCLDS 09:41
PROVIDERS: PCP Internal Medicine; Visit Provider Student in an Organized Health Care Education/Training Program
DX: M85.80 Other specified disorders of bone density and structure, unspecified site (principal); M05.9 Rheumatoid arthritis with rheumatoid factor, unspecified; Z51.81 Encounter for therapeutic drug level monitoring; Z79.899 Other long term (current) drug therapy; Z79.620 Long term (current) use of immunosuppressive biologic
CPT/HCPCS: 36415; 80053; 86140; 86200; 86431; 86704; 86706; 86709; 86803; 87340

== ENCOUNTER 2024-10-13 09:55 | Outpatient (REF) | payer MEDICARE, SELFPAY ==
[2024-10-13 13:50] LABS: MN% 97.9 %; PMN% 2.1 %; WBC Synovial Fluid 0.629 X10*3/uL
[2024-10-13 13:52] LABS: RBC Synovial Fluid < 0.002 X10*6/uL
[2024-10-13 14:25] LABS: BF Shift QC OK YES; Lymphocytes Synovial Fluid 45 %; Monocytes Synovial Fluid 54 %; Neutrophils Synovial Fluid 1 %
[2024-10-13 14:26] LABS: Source Synovial Fluid LEFT KNEE
== END 2024-10-13 09:56 | disposition home or self-care (01) ==
LOC: HO.LAB 09:55
PROVIDERS: PCP Internal Medicine; Visit Provider Student in an Organized Health Care Education/Training Program
DX: M05.9 Rheumatoid arthritis with rheumatoid factor, unspecified (principal); Z79.899 Other long term (current) drug therapy; M17.12 Unilateral primary osteoarthritis, left knee; Z79.620 Long term (current) use of immunosuppressive biologic; M85.852 Other specified disorders of bone density and structure, left thigh; M70.62 Trochanteric bursitis, left hip; Z51.81 Encounter for therapeutic drug level monitoring; Z79.69 Long term (current) use of other immunomodulators and immunosuppressants
CPT/HCPCS: 20610; 87070; 87073; 87205; 89051; 89060; 99212; J2003; J3300

== ENCOUNTER 2024-10-13 09:55 | Outpatient (AMB) | payer MEDICARE, SELFPAY ==
[2024-10-13 09:57] VITALS: BP 154/68; PULSE 81; BMI 41.8
--- NOTE | 2024-10-13 09:57 | A.OFFVIS_ITS ---
Vital Signs 10/13/24 09:57 Height 5 ft 2 in Weight 228 lb 9.91 oz BMI 41.8 BP 154/68 H Blood Pressure Location Rt brachial Position Sitting Pulse 81 Pulse Source Pulse Oximeter Intake Visit Reasons: RA Intake Note: Patient last seen by Doctor Ami on 07/12/24. Presents today for RA follow up and test results. Truck Jumper Required: No Accompanied by: Self / Same As Patient Allergies codeine [Codeine] Allergy (Severe, Verified 10/13/24 10:02) DIFFICULTY BREATHING Penicillins Adverse Reaction (Intermediate, Verified 10/13/24 10:02) stomach upset semaglutide [From Ozempic] Adverse Reaction (Verified 10/13/24 10:02) Vomiting Medication List - Last Reconciled 10/13/24 by Minal Chapman MD adalimumab (Humira(CF) Pen) 40 mg (0.4 mL) subcut Q2W 56 days albuterol sulfate 90 mcg/actuation 2 puffs inhalation Q6H PRN blood sugar diagnostic (RangespanTouch Ultra Test strips) USE 3 TIMES DAILY blood-glucose meter,continuous (DexJoturl G7 Special Tester) As directed blood-glucose sensor (Dexcom G7 Sensor device) CHANGE EVERY 10 DAYS DIRECTED bumetanide 1 mg PO DAILY cholecalciferol (vitamin D3) 50 mcg PO DAILY gabapentin (Neurontin) 300 mg PO BEDTIME insulin degludec (Tresiba FlexTouch U-200 insulin) 40 units (0.2 mL) subcut DAILY insulin lispro (Humalog U-100 Insulin) Inject up to 70 units with patch pump daily subcutaneously daily; lansoprazole (Prevacid 24Hr) 15 mg PO DAILY leflunomide 10 mg PO DAILY lisinopril 20 mg PO DAILY 30 days pen needle, diabetic (Novofine 32) Use daily As directed for insulin pen needle, diabetic (BD Ultra-Fine Opal Pen Needle) Use 4x a day As directed pravastatin 40 mg PO BEDTIME sub-q insulin device, 40 unit (V-GO 40 device) USE DIRECTED HPI Comments Details: Patient is a 73-year-old female with diabetes complicated by diabetic neuropathy, hypertension, hyperlipidemia, CKD stage 3B c/b secondary hyperparathyroidism, monoclonal gammopathy and 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 Interval History: Last seen 07/2024 by me. At that time patient is rheumatoid arthritis was stable, no changes made to medications. Clear cell carcinoma of the kidney status post ablative surgical therapy. With improvement. Improvement in her hip bursitis after bilateral corticosteroid injection. But still complained of left hip pain being unable to lay down on that side. She was given corticosteroid injection to the left greater trochanter Today, Patient reports improvement in left hip after corticosteroid injection however this was short-lived only for a few weeks. Now also complains of left knee pain, worse at the end of the day. Aggravated when walking stairs. Has morning stiffness but lasts about 20 minutes Rheumatologic History: Diagnosed with rheumatoid arthritis more than 10 years ago. Currently on Humira and leflunomide. Currently in remission Medication History: Humira 40 mg every other week subQ Leflunomide 10 mg every day [facility] Medical History (Updated 10/13/24 @ 11:56 by Minal Chapman MD) Adalimumab (Humira) long-term use Osteoarthritis of left knee Hyperparathyroid bone disease Hypogammaglobulinemia Trochanteric bursitis of both hips Leg pain, bilateral Herpes zoster vaccination declined COVID-19 vaccine dose declined Diabetic retinopathy Tubular adenoma of colon Osteopenia History of severe acute respiratory syndrome coronavirus 2 (SARS-CoV-2) disease Obesity due to excess calories 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 Postlaminectomy syndrome MGUS (monoclonal gammopathy of unknown significance) 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 mellitus) Diabetic retinopathy associated with type 2 diabetes mellitus CKD (chronic kidney disease) stage 3, GFR 30-59 ml/min half-way (current) use of insulin GERD (gastroesophageal reflux disease) Type 2 diabetes mellitus with diabetic polyneuropathy Essential hypertension Dyslipidemia Surgical History Hx of colonoscopy Hx laparoscopic cholecystectomy Hx of tonsillectomy Hx of cataract surgery History of back surgery Family History Mother Diabetes CVD (cardiovascular disease) HTN (hypertension) Father Hodgkin disease Brother Hodgkin disease Sister Pancreatic cancer Sister Lung cancer Non-Hodgkin lymphoma Paternal Uncle Colon cancer Social History Household Members: None Housing: Condominium Alcohol intake: never Patient Tobacco Use Status: Former Tobacco user Tobacco use type: Cigarette Cigarettes Per Day: 50 Years Smoked: 20 e-Cigarette/Vaping Use: Never Used Advance Directives Date on File: 02/08/22 service: No Current occupational status: retired Cognitive needs: No Hearing needs: No Vision needs: Yes Review of Systems Const Details: Review of Systems Constitutional: Denies fever, chills, weight loss ENT: Denies vision changes, eye pain or eye redness, dental caries, dry mouth GI: Denies nausea, vomiting, diarrhea, abdominal pain, change in BM Pulm: Denies SOB, RODRIGUEZ, hemoptysis, wheezing Cards: Denies chest pain, palpitations Skin: Denies Raynaud's, rash, nail changes, photosensitivity, INTERNET SPECIALIST: Denies headaches, weakness, paresthesias, recurrent falls MSK: Complains of joint pain and joint stiffness. Denies joint swelling, muscle weakness, bone pain. Left hip pain All other systems reviewed and are unremarkable except noted above Review of Symptoms Physical Exam Vital Signs: Last Vital Signs Pulse 81 10/13/24 09:57 BP 154/68 H 10/13/24 09:57 BMI result Body Mass Index 41.8 Physical Examination CONSTITUITIONAL Patient alert and cooperative. Well appearing and in no apparent painful distress HEENT Conjunctiva and sclera clear. ?Pupils equal round and reactive to light. ?No lym phadenopathy. ? CHEST/RESPIRATORY SYSTEM Normal respiratory effort and able to speak in complete sentences. ?Clear to auscultation bilaterally. ?No crackles, rales, rhonchi, wheezes heard. CARDIAC SYSTEM Regular rate and rhythm. ?S1 and S2 heard no murmurs. ?Radial pulses intact bilaterally MSK Hands: ?Good director heart strength bilaterally. No deformities noted. ?No synovitis noted to the MCPs, PIPs or DIPs. ?No tenderness to palpation of these joints. Wrists: ?Full range of motion at the wrists without pain. ?No tenderness to palpation or synovitis noted to the wrists. Elbows: Full range of motion without pain. No tenderness, weakness, swelling, increased warmth or erythema. Shoulders: Full range of motion without pain. No tenderness, weakness, swelling, increased warmth or erythema. Hips: Full range of motion without pain. Hip bursa: No tenderness to palpation Knees: ?Full range of motion. ?No tenderness, swelling, increased warmth or erythema.?No effusion or crepitations Ankles: Full range of motion. ?No tenderness, swelling, increased warmth or erythema.? Feet: ?Negative squeeze test. ?No tenderness to palpation or swelling of the MTPs. Tender points:?No tenderness to palpation of the bilateral trapezius, supraspinatus, greater trochanters, anterior costochondral junctions, bilateral gluteal areas, bilateral suboccipital muscle insertions SKIN Skin intact without rashes. Office Procedures AMB Joint Injection/Aspiration Joint Injection/Aspiration Details: Procedure was explained to the patient and consent was obtained. ? The area of interest was identified and confirmed with patient. ?This was subsequently cleaned with chlorhexidine x3. ? The area was then anesthetized using ethyl chloride spray. 10 cc straw-colored fluid was removed 40 mg Kenalog with 1 cc 1% lidocaine was injected without issue. ?Minimal to no bleeding. ?Patient tolerated procedure. Primary Site: left knee Prep: site was prepped using aseptic technique and ethochloride spray was applied Injected: 40 mg of, Kenalog, with 1 mL of and 1% plain lidocaine Approach Used: lateral parapatellar Procedure: The patient tolerated the procedure well Coding 21027 - Large joint Procedure code (CPT) selection complete Office Meds lidocaine (PF) 10 mg/mL (1 %) injection solution Performing Provider: Minal Chapman MD Performing Location: [facility] [place] Rheumatology Administered by: Minal Chapman MD on 10/13/24 12:41 Dose Route Admin Location Dispensed Lot Number Expiration Date [facility] Head Host/Hostess 10 mg intra-articular left knee 2 mL [id number] 01/10/27 35438-195-66 [facility] Kenalog 40 mg/mL suspension for injection Performing Provider: Minal Chapman MD Performing Location: [facility] [place] Rheumatology Administered by: Minal Chapman MD on 10/13/24 12:41 Dose Route Admin Location Dispensed Lot Number Expiration Date [facility] Head Host/Hostess 40 mg intra-articular left knee 1 mL [id number] 04/11/26 [address]-0 [employer] Results Reviewed Results Reviewed: Laboratory Tests 07/09/24 09/27/24 08:22 10:05 WBC 7.6 RBC 4.41 Hgb 12.4 Hct 39.0 Plt Count 316 D ESR 43 H Sodium 142 Potassium 4.1 Chloride 110 H Carbon Dioxide 25 BUN 28 H Creatinine 1.25 AST 20 24 ALT 15 17 C-Reactive Protein 0.78 H 0.91 H Rheumatoid Factor 13.9 Cycl Citrul Peptide IgG 31 H Assessment & Plan Assessment & Plan (1) Seropositive rheumatoid arthritis: Code(s): M05.9 - Rheumatoid arthritis with rheumatoid factor, unspecified Category: Medical Plan: #Seropositive RA Patient with seropositive erosive rheumatoid arthritis. Currently in remission Her morning stiffness likely due to her osteoarthritis as this is not prolonged. Labs reviewed today okay Plan - Humira 40mg SC every other week - Leflunomide 10mg daily - Check CBC, CMP, ESR, CRP, Hep B and C and T spot in 3 months prior to next visit - RTC 3 months (2) Osteopenia: Comment: DEXA 10/2022: AP Spine 2.8, Left femur neck -1.1, Left femur 0.9. FRAX 16.6%/2.5% Code(s): M85.80 - Other specified disorders of bone density and structure, unspecified site Category: Medical Qualifiers: Osteopenia location: femoral neck Laterality: left Qualified Code(s): M85.852 - Other specified disorders of bone density and structure, left thigh Plan: #Osteopenia Osteopenia of the left femoral neck based on DEXA. Encouraged vitamin-D and calcium supplementation. Weight-bearing exercises. Repeat DEXA in 2024 Plan - Vitamin D supplementation - Encourage daily Ca intake - Weight bearing exercises (3) Trochanteric bursitis, left hip: Code(s): M70.62 - Trochanteric bursitis, left hip Category: Medical Plan: #Trochanteric bursitis Recalcitrant left hip trochanteric bursitis Differentials for underlying cause include: Leg length discrepancy, hallux rigidus with abnormal gait, lumbar radiculopathy. Will give patient stretching exercises and reassess at next visit Plan - Stretches given - Topical ice at night - May need further work up (4) Encounter for monitoring leflunomide therapy: Code(s): Z51.81 - Encounter for therapeutic drug level monitoring; Z79.69 - buttermaker continuous churn (current) use of other immunomodulators and immunosuppressants Plan: #Long-term leflunomide Discussed with patient the benefits and risks of leflunomide for managing the rheumatic condition Benefits include: - Reduced pain, maintenance of remission and reduction of flares Risks include: - GI upset especially diarrhea, skin rash, cytopenias, hepatotoxicity, weight loss, neuropathy Monitoring: ?CBC, BMP, LFTs, hepatitis B and C serologies (5) Osteoarthritis of left knee: Code(s): M17.12 - Unilateral primary osteoarthritis, left knee Category: Medical Qualifiers: Osteoarthritis type: primary Qualified Code(s): M17.12 - Unilateral primary osteoarthritis, left knee Plan: #Left knee OA S/p steroid injection today Removed 10cc straw colored fluid, will send for analysis Discussed viscosupplementation and patient is agreeable will need to wait atleast 3 months since she got steroids today Plan - Get PA for Euflexxa, once approved administer in 3 months - S/p steroid injection today - Send fluid for crystals, culturs and cells (6) Long-term use of adalimumab: Code(s): Z79.620 - half-way (current) use of immunosuppressive biologic Category: Medical Plan: #Long-term use of TNF Inhibitors Discussed with the patient the benefits and risks of TNF inhibitors for the management of the rheumatic condition Benefits include reduce pain, maintenance of remission and reduction of flares as well as progression of the disease Risks include injection sites/infusion reactions, serious infections (such as bacterial infections, opportunistic infections), malignancy, delaminating syndromes, autoimmune phenomena, CHF exacerbations, palmar plantar psoriasis and cytopenias Recommended rotating injection sites, and holding medication during and for up to 1 week after resolution of a febrile illness or open skin wound (7) half-way use of drug: Code(s): Z79.899 - Other nursing home (current) drug therapy Category: Medical Plan: #Long-term leflunomide Discussed with patient the benefits and risks of leflunomide for managing the rheumatic condition Benefits include: - Reduced pain, maintenance of remission and reduction of flares Risks include: - GI upset especially diarrhea, skin rash, cytopenias, hepatotoxicity, weight loss, neuropathy Monitoring: ?CBC, BMP, LFTs, hepatitis B and C serologies Plan I spent 35 minutes reviewing the record and labs, seeing the patient, discussing the treatment plan and documenting in the medical record Orders: Orders Complete Blood Count Auto Diff 3 Months M05.9 - Rheumatoid arthritis with rheumatoid factor, unspecified, Z79.620 - buttermaker continuous churn (current) use of immunosuppressive biologic Synov Fld Cult + Crystals Today M17.12 - Unilateral primary osteoarthritis, left knee C Reactive Protein 3 Months M05.9 - Rheumatoid arthritis with rheumatoid factor, unspecified, Z79.620 - buttermaker continuous churn (current) use of immunosuppressive biologic Comprehensive Met. Panel 3 Months M05.9 - Rheumatoid arthritis with rheumatoid factor, unspecified, Z79.620 - half-way (current) use of immunosuppressive biologic Erythrocyte Sedimentation Rate 3 Months M05.9 - Rheumatoid arthritis with rheumatoid factor, unspecified, Z79.620 - buttermaker continuous churn (current) use of immunosuppressive biologic Hepatitis A,B,C Profile 3 Months M05.9 - Rheumatoid arthritis with rheumatoid factor, unspecified, Z79.620 - half-way (current) use of immunosuppressive biologic T Spot TB 3 Months M05.9 - Rheumatoid arthritis with rheumatoid factor, unspecified, Z79.620 - buttermaker continuous churn (current) use of immunosuppressive biologic AMB Joint Injection/Aspiration Today M17.12 - Unilateral primary osteoarthritis, left knee Cell Ct wDiff Synovial Fl Today M17.12 - Unilateral primary osteoarthritis, left knee Coding Level of Care Code Est Pt Level 4 (60999) Complex EM visit Add On G2211 Diagnoses Seropositive rheumatoid arthritis M05.9 Osteopenia of neck of left femur M85.852 Osteopenia location: femoral neck Laterality: left Trochanteric bursitis, left hip M70.62 Encounter for monitoring leflunomide therapy Z51.81; Z79.69 Primary osteoarthritis of left knee M17.12 Osteoarthritis type: primary Long-term use of adalimumab Z79.620 buttermaker continuous churn use of drug Z79.899 CPT Codes Coding - 81420 Large joint: 89894 - Large joint ([id number])
--- OUTSIDE RECORDS SUMMARY | 2024-10-13 09:59 | XMS_ITS | Patient Health Record ---
Author Organization [facility] Address [address] [place] [address] Care Team Providers Care Manager Of Patient Name Role Phone Yuriy GRACIA, Lyndsay Primary Care Provider Bang Moore Unavailable [phone] ALLERGIES Allergen (clinical drug ingredient) Drug/Non Drug [...] Problem RUQ pain (R10.11) Active confirmed 3017 42545 Problem Diarrhea, unspecified type (R19.7) Active confirmed 53659651 Problem Change in bowel habit (R19.4) Active confirmed Change in malu l habit (26308219) Problem Calculus of gallbladder without cholecystitis without obstruction (K80.20) Active confirmed 16358915 Problem RUQ abdominal pain (R10.11) Active confirmed 966377514 Problem History of adenomatous polyp of colon (Z86.010) Active confirmed 575890621 Problem Diarrhea (R19.7) Active confirmed Diarr hea (77860502) Problem Gastroesophageal reflux disease without esophagitis (K21.9) Active confirmed 388040270 Problem Epigastric abdominal pain (R10.13) Active confirmed 55411362 Problem Left renal mass (N28.89) Active confirmed 428147347 Problem Abnormal ultrasound of left kidney (R93.422) Active confirmed [id number] PLAN OF TREATMENT Pending Test Test Name Order Date BUN 04/05/2023 LIVER PROFILE 03/24/2023 CBC w DIFF 09/02/2019 CBC w DIFF 04/05/2023 CBC w DIFF 03/24/2023 CT ABD & PELVIS WWO CONTRAST 04/05/2023 Electrolytes 04/05/2023 Creatinine 04/05/2023 CT abdomen pelvis wo/w con 04/15/2023 US abdomen complete 03/24/2023 Future Test Test Name Order Date COLONOSCOPY 09/02/2019 Next Appt Details Provider Name:Bang Litlte , 01/12/2025 10:40:00 AM, [address] [facility], [address], [place], [address], Insurance Providers Payer Name Payer Address Payer Phone Subscriber Number Group Number Insured Name Patient Relationship to Insured Coverage Start Date Coverage End Date [employer] [address] [place] [phone] [id number] CHANTELLE FRIEDMAN Self - patient is the insured MEDICAL (GENERAL) HISTORY Medical History History ICD Code IDDM Elevated Cholesterol Hypertension Rheumatoid arthritis Urinary incontinence- mild GERD-neg EGD in 2000 Neg. colonoscopy in 2000 and 08/2010 Denies NV,CVA,Lung disease,renal disease Bronchitis Edema of ankles Colonoscopy in 11/2019 with a single tubular adenoma removed; no colitis, biopsies neg for microscopic colitis Neg. celiac disease labs in 2018 Surgical History Surgery Date(Month/Year) Back surgery Cataract removal Tonsillectomy CCY by Dr Dickson 10/2019
== END 2024-10-13 11:00 | disposition home or self-care (01) ==
PROVIDERS: PCP Internal Medicine; Visit Provider Student in an Organized Health Care Education/Training Program
DX: M05.79 Rheumatoid arthritis with rheumatoid factor of multiple sites without organ or systems involvement (principal); M85.852 Other specified disorders of bone density and structure, left thigh; M70.62 Trochanteric bursitis, left hip; Z51.81 Encounter for therapeutic drug level monitoring; Z79.69 Long term (current) use of other immunomodulators and immunosuppressants; M17.12 Unilateral primary osteoarthritis, left knee; Z79.620 Long term (current) use of immunosuppressive biologic; Z79.899 Other long term (current) drug therapy
CPT/HCPCS: 20610; 99214

== ENCOUNTER → 2024-11-14 08:39 | Outpatient (BNV) | payer MEDICARE, SELFPAY | PROVIDERS: PCP Internal Medicine; Visit Provider Radiology Diagnostic Radiology | DX: N28.89 Other specified disorders of kidney and ureter (principal) | CPT/HCPCS: 76775 ==

== ENCOUNTER 2024-11-23 08:41 | Outpatient (REF) | payer MEDICARE, SELFPAY ==
--- OUTSIDE RECORDS SUMMARY | 2024-11-23 09:33 | XMS_ITS | Encounter Summary ---
Author Organization [facility] Address [address] [place] [address] Phone Care Team Providers Care Distance Learning Coordinator Name Role Phone Ellen Yan MD Primary Care Provider [phone]- [phone] Encounter Details Date Type Department Care Team (Late st Contact Info) Description 04/01/2022 Telephone [facility] [address] [place] [address] Jim Santiago MD [address] [place] [phone] Social History Tobacco Use Types Packs/Day Years Used Date Smoking Tobacco: Former Smokeless Tobacco: Never Alcohol Use Standard Drinks/Week Comments Never 0 (1 standard drink = 0.6 oz pur e alcohol) Comments Unknown Sex and Gender Information Value Date Recorded Sex Assigned at Not on file Legal Sex Female 1:35 PM EST Gender Identity Not on file Sexual Orientation Not on file documented as of this encounter Miscellaneous Notes * Telephone Encounter - Wendy Bernal - 04/07/2022 4:37 PM EDT Pt given samples, pa started * Telephone Encounter - Eve Vaughn - 04/07/2022 10:18 AM EDT PT would like sample of Joaquín HUGHES. Has been waiting, and was hospitalized w/potassium problems over the weekend. Pls call her at [phone] * Telephone Encounter - Kassi Sotelo - 04/01/2022 10:50 AM EDT Pt called, her insurance will not cover the script for joaquín. It needs a PA please advise Thank you documented in this encounter Plan of Treatment Upcoming Encounters Date Type Department Care Team (Late st Contact Info) Description 01/05/2025 1:15 PM EDT Office Visit [facility] [address] [place] [address] Sorin Carpio MD [address] [facility] [address] [place] [phone] documented as of this encounter Visit Diagnoses Not on filedocumented in this encounter Care Teams Distance Learning Coordinator Relationship Specialty Start Date End Date Ellen Yan MD [address] [place] [address] PCP - General Internal Medicine 12/03/20 documented as of this encounter
--- OUTSIDE RECORDS SUMMARY | 2024-11-23 09:34 | XMS_ITS | Encounter Summary ---
Author Organization [facility] Address [address] [facility] [address] [place] [address] Phone Care Team Providers Care Power Sewing Machine Operator Name Role Phone Ellen Yan MD Primary Care Provider [phone]- [phone] Encounter Details Date Type Department Care Team ([facility] Contact Info) Description 04/24/2021 Documentation Only [facility] [address] [facility] [address] [place] [address] Meena Kemp [place] Social History Tobacco Use Types Packs/Day Years Used Date Smoking Tobacco: Former Smokeless Tobacco: Never Alcohol Use Standard Drinks/Week Comments Never 0 (1 standard drink = 0.6 oz pur e alcohol) Comments Unknown Sex and Gender Information Value Date Recorded Sex Assigned at Not on file Legal Sex Female 1:35 PM EST Gender Identity Not on file Sexual Orientation Not on file COVID-19 Exposure Response Date Recorded In the last month, have you been in contact with someone who was confirmed or suspected to have Coronavirus / COVID-19? No / Unsure 04/24/2021 1:13 PM EDT documented as of this encounter Plan of Treatment Upcoming Encounters Date Type Department Care Team ([facility] Contact Info) Description 01/05/2025 1:15 PM EDT Office Visit [facility] [address] [place] [address] Sorin Crapio MD [address] [facility] [address] [place] [address] documented as of this encounter Procedures Procedure Name Priority Date/Time Associated Diagnosis Comments COMPREHENSIVE METABOLIC PANEL (CMP) (EXTERNAL LAB ENTRY) Routine 04/09/2021 CBC (INCLUDES DIFF/PLT) (EXTERNAL LAB ENTRY) Routine 04/09/2021 documented in this encounter Results * Comprehensive Metabolic Panel (CMP) (04/09/2021) BUN 30 mg/dL Creatinine 1.48 mg/dL Sodium 143 mEq/L Potassium 5.5 mEq/L Chloride 108 Carbon Dioxide 28 mmol/L Calcium 9.3 mg/dL Albumin (Blood) 3.9 g/dL AST (SGOT) 18 U/L ALT (SGPT) 14 U/L Alkaline Phosphatase 62 U/L Total Bilirubin 0.3 MG/DL eGFR Non-Afr Ghanaian 35 Total Protein, Serum 6.2 Blood 04/09/2021 Historical Provider MD LAB BLOOD ORDERABLES Sidra l Result * CBC (Includes Diff/Plt) (External Lab) (04/09/2021) WBC 12.2 K/uL Red Blood Cell Count 4.17 Hemoglobin 11.8 g/dL Hematocrit 38.5 % MCV 92.3 MCH 28.3 MCHC 30.6 RDW 14.1 Platelet Count 312 MPV 11.1 Blood 04/09/2021 Historical Provider MD LAB BLOOD ORDERABLES Sidra l Result documented in this encounter Visit Diagnoses Not on filedocumented in this encounter Care Teams Power Sewing Machine Operator Relationship Specialty Start Date End Date Ellen Yan MD [facility] [place] [address] PCP - General Internal Medicine 12/03/20 documented as of this encounter
--- OUTSIDE RECORDS SUMMARY | 2024-11-23 09:34 | XMS_ITS | Patient Health Record ---
Author Organization [facility] Address [address] [place] [address] Care Team Providers Care Real Estate Sales Supervisor Name Role Phone Yuriy GARCIA, Lyndsay Primary Care Provider Bang Moore Unavailable [phone] ALLERGIES Allergen (clinical drug ingredient) Drug/Non Drug [...] Problem RUQ pain (R10.11) Active confirmed [id number] Problem Diarrhea, unspecified type (R19.7) Active confirmed 46859434 Problem Change in bowel habit (R19.4) Active confirmed Change in malu l habit (67221651) Problem Calculus of gallbladder without cholecystitis without obstruction (K80.20) Active confirmed 43517580 Problem RUQ abdominal pain (R10.11) Active confirmed 590430915 Problem History of adenomatous polyp of colon (Z86.010) Active confirmed 935314523 Problem Diarrhea (R19.7) Active confirmed Diarr hea (25650605) Problem Gastroesophageal reflux disease without esophagitis (K21.9) Active confirmed 886573193 Problem Epigastric abdominal pain (R10.13) Active confirmed 62606507 Problem Left renal mass (N28.89) Active confirmed 394180871 Problem Abnormal ultrasound of left kidney (R93.422) Active confirmed [id number] PLAN OF TREATMENT Pending Test Test Name [...] Name:Bang Little , 01/12/2025 10:40:00 AM, [address] [facility], [address], [place], [address], Insurance Providers Payer Name Payer Address Payer Phone Subscriber Number Group Number Insured Name Patient Relationship to Insured Coverage Start Date Coverage End Date [place] [employer] [address] ALVAREZ CHUA [phone] [id number] CHANTELLE FRIEDMAN Self - patient is the insured MEDICAL (GENERAL) HISTORY Medical History History ICD Code IDDM Elevated Cholesterol Hypertension Rheumatoid arthritis Urinary incontinence- mild GERD-neg EGD in 2000 Neg. colonoscopy in 2000 and 08/2010 Denies [place],CVA,Lung disease,renal disease Bronchitis Edema of ankles Colonoscopy in 11/2019 with a single tubular adenoma removed; no colitis, biopsies neg for microscopic colitis Neg. celiac disease labs in 2018 Surgical History Surgery Date(Month/Year) Back surgery Cataract removal Tonsillectomy CCY by Dr Dickson 10/2019
--- OUTSIDE RECORDS SUMMARY | 2024-11-23 09:34 | XMS_ITS | Clinical Summary ---
Author Organization [facility] Address [address] [facility] [address] 0 [place] [address] Phone Care Team Providers Care Abrasive Water Jet Cutter Operator Name Role Phone Ellen Yan MD Primary Care Provider +1- [phone] Allergies Active Allergy Reactions Criticality Noted Date Comments Codeine Shortness of breath High 01/24/2021 Semaglutide(0.25 Or 0.5mg-Dos) 02/04/2023 Penicillins GI intolerance 01/24/2021 Upset stomach Medications * This document contains information received from the source organization and may not represent a complete record from that organization. bumetanide (BUMEX) 1 MG tablet Take 1 mg by mouth 1 (one) time each day 1 Active gabapentin (NEURONTIN) 300 MG capsule Take 300 mg by mouth 1 (one) time each day 1 Active Insulin Disposable Pump (V-Go 40) kit USE UP TO 76 UNITS OF INSULIN VIA V GO 40 DIRECTED DAILY IN VITRO 30 DAYS 1 Active pravastatin (PRAVACHOL) 40 MG tablet Take 40 mg by mouth at bed time Active lansoprazole (PREVACID) [address] capsule Take 15 mg by mouth 1 (one) time each day before breakfast Do not crush or chew. Active lisinopril 20 MG tablet Take 1 tablet (20 mg total) by mouth 1 (one) time each day 90 tablet 3 3 Active adalimumab (HUMIRA) 40 MG/0.8ML Prefilled Syringe Kit Inject 40 mg under the skin 1 (one) time Active Toujeo Max SoloStar 300 UNIT/ML solution pen-injector INJECT 40 UNITS SUBCUTANEOUSLY AT BEDTIME 3 Active HumaLOG 100 UNIT/ML solution INJECT UP TO 70 UNITS WITH PATCH PUMP DAILY SUBCUTANEOUSLY DAILY 4 Active Active Problems Problem Noted Date Diagnosed Date Ultrasonography of left kidney abnormal 01/13/20 Renal mass 01/13/2024 Hypertension 01/24/2021 Type 2 diabetes mellitus with diabetic polyneuro bettina 01/24/2021 Long-term (current) use of insulin 01/24/2021 Stage 3 chronic kidney disease, not otherwise sp ecified 01/24/2021 Type 2 diabetes mellitus wit h diabetic chronic kidney disease 01/24/2021 Proteinuria, not otherwise specified 01/24/2021 Chronic kidney disease, stage 2 (mild) Family History Medical History Relation Comments Hodgkin's lymphoma Father Diabetes Mother Heart disease Mother Hypertension Mother Relation Status Comments Father Mother Social History Tobacco Use Types Packs/Day Years Used Date Smoking Tobacco: Former Smokeless Tobacco: Never Tobacco Cessation:Counseling Given: No Alcohol Use Standard Drinks/Week Comments Never 0 (1 standard drink = 0.6 oz pur e alcohol) Comments Unknown Sex and Gender Information Value Date Recorded Sex Assigned at Not on file Legal Sex Female 1:35 PM EST Gender Identity Not on file Sexual Orientation Not on file Last Filed Vital Signs Vital Sign Reading Time Taken Comments Blood Pressure 132/78 07/21/2024 1:11 PM EDT Pulse 66 07/21/2024 1:11 PM EDT Temperature - - Respiratory Rate - - Oxygen Saturation 97% 07/21/2024 1:11 PM EDT Inhaled Oxygen Concentration - - Weight 98.2 kg (216 lb 6.4 oz) 07/21/2024 1:11 P M EDT Height 157.5 cm (5' 2 ) 08/05/2023 9:40 AM EDT Body Mass Index 39.58 08/05/2023 9:40 AM EDT Plan of Treatment Upcoming Encounters Date Type Department Care Team (Late st Contact Info) Description 01/05/2025 1:15 PM EDT Office Visit [facility] [address] [place] [address] Sorin Carpio MD [address] [facility] [address] [place] [phone] Health Maintenance Due Date Last Done Comments Breast Cancer Screening 1950 Pneumococcal Vaccine: 65+ Ye ars (1 of 2 - PCV) 1956 Colorectal Cancer Screening: Annual FOBT 1999 Colorectal Cancer Screening: Colonoscopy 1999 Colorectal Cancer Screening: Sigmoidoscopy 1999 Diabetes: Ophthalmology Exam 01/24/2021 Diabetes: Pedal Pulse Checked 01/24/2021 Diabetes: Sensory Foot Exam 01/24/2021 Diabetes: Visual Foot Exam 01/24/2021 Diabetes: Hemoglobin A1C 05/06/2023 02/04/2023 Influenza Vaccine (#1) 2024 Hepatitis B Vaccine Aged Out No longe r eligible based on patient's age to complete this topic Procedures Procedure Name Priority Date/Time Associated Diagnosis Comments HEMOGLOBIN A1C Routine 02/04/2023 10:21 AM EDT Chronic kidney disease, stage 2 (mild) Proteinuria, not otherwise specified from Last 3 Months or Most Recently Relevant to Health Maintenance Results * (ABNORMAL) Hemoglobin A1c (02/04/2023 10:21 AM EDT) Hemoglobin A1C 7.2(H) (4.0-5.6) % [facility] Comment: MONITORING: In known diabetic patients, hemoglobin A1c targets should be discussed with health care provider. DIAGNOSTIC USE: ??The [place] Diabetes Association (ADA) and the World Health Organization (WHO) recommend the use of HbA1c to diagnose diabetes using a threshold of 6.5%. Patients who have an HbA1c between 5.7% and 6.4% are considered at increased risk for developing diabetes in the future. CAUTION: Falsely low HbA1c results may be observed in patients with hemolytic anemia, homozygous forms of abnormal hemoglobin (e.g. SS, CC, SC), , recent blood loss or hemoglobin F greater than 7%. Fructosamine may be used as an alternate test in these cases. REFERENCE: ADA: Standards of Medical Care in Diabetes 2020, The Journal of Clinical and Applied Research and Education Volume 43, Supplement 1 Testing performed or reported by [facility], a Service of [facility], [address] [place] [address] Lamont Ortega MD, Bareback Rider [facility]# [id number] Blood (Blood, Venous) 02/04/2023 10:21 AM EDT 02/04/2023 10:34 AM EDT Jim Santiago MD LAB BLOOD ORDERABLES Final Re sult PAWEL from Last 3 Months or Most Recently Relevant to Health Maintenance Insurance MULDOON MULDOON Care Teams Abrasive Water Jet Cutter Operator Relationship Specialty Start Date End Date Ellen Yan MD [address] [facility] [place] [address] PCP - General Internal Medicine 12/03/20
[2024-11-23 10:41] LABS: MANUAL DIFF FLAG NO
[2024-11-23 10:53] LABS: Basophils Absolute Auto 0.1 X10*3/uL (0.0-0.2); Basophils Percent Auto 0.7 % (0-2); Eosinophils Absolute Auto 0.3 X10*3/uL (0.0-0.4); Eosinophils Percent Auto 2.8 % (0-4); Hematocrit 41.2 % (37.0-47.0); Hemoglobin 12.8 g/dl (12.0-16.0); Imm Gran Abs Auto 0.11 X10*3/uL (0.00-0.03); Imm Gran Pct Auto 1.1 % (0.0-0.4); Lymphocytes Absolute Auto 1.8 X10*3/uL (1.2-4.9); Lymphocytes Percent Auto 17.3 % (20-40); Mean Corpuscular HGB Conc 31.1 g/dl (31.0-35.0); Mean Corpuscular Hemoglobin 28.1 pg (27.0-33.0); Mean Corpuscular Volume 90.4 fL (80.0-98.0); Mean Platelet Volume 10.4 fL (9.4-12.3); Monocytes Percent Auto 9.5 % (2-11); Neutrophils Absolute Auto 6.9 x10*3/uL (2.0-8.3); Neutrophils Percent Auto 68.6 % (45-73); Platelet Count 339 X10*3/uL (160-400); Red Blood Count 4.56 X10*6/uL (4.20-5.50); Red Cell Distribution Width 14.6 % (11.0-16.0); White Blood Count 10.1 X10*3/uL (4.8-10.8)
[2024-11-23 11:23] LABS: Parathyroid Hormone Intact 262.6 pg/mL (8.7-77.1)
[2024-11-23 11:44] LABS: Alanine Aminotransferase 15 U/L (0-31); Albumin Level 4.3 g/dL (3.5-5.0); Alkaline Phosphatase 102 U/L (39-117); Anion Gap 15 (12-20); Aspartate Amino Transferase 30 U/L (5-31); Bilirubin Total 0.3 mg/dL (0.0-1.0); Blood Urea Nitrogen 38 mg/dL (9-16); Calcium 9.3 mg/dL (8.4-10.2); Carbon Dioxide 25 mmol/L (22-29); Chloride 105 mmol/L (96-108); Estimated Glomerular Filt Rate 33; Glucose Random 94 mg/dL (60-115); Potassium 4.8 mmol/L (3.3-5.1); Sodium 140 mmol/L (135-145); Total Protein 8.3 g/dL (6.5-8.0)
[2024-11-23 11:47] LABS: Vitamin D 25-OH Total 48.9 ng/mL (>30)
[2024-11-23 11:57] LABS: Creatinine, mg/dL 50.01
[2024-11-23 12:37] LABS: Total Volume 24 Hour Urine 2075 mL
[2024-11-24 19:34] LABS: Calcium, 24 Hr Urine 33 mg/24 h; Calcium/Creatinine Ratio 32 mg/g creat (30-275); Creatinine 24Hr Urine 1.04 g/24 h (0.50-2.15)
== END 2024-11-23 08:42 | disposition home or self-care (01) ==
LOC: HO.HMGCLDS 08:41
PROVIDERS: Internal Medicine Medical Oncology; PCP Internal Medicine; Visit Provider Internal Medicine Endocrinology, Diabetes & Metabolism
DX: E21.0 Primary hyperparathyroidism (principal); C64.9 Malignant neoplasm of unspecified kidney, except renal pelvis
CPT/HCPCS: 36415; 80053; 82306; 82340; 82570; 83970; 85025

== ENCOUNTER 2024-11-25 09:49 | Outpatient (AMB) | payer MEDICARE, SELFPAY ==
[2024-11-25 09:52] VITALS: BP 128/64; PULSE 70; O2SAT 97; BMI 42.3
--- NOTE | 2024-11-25 09:52 | A.OFFVIS_ITS ---
Vital Signs 11/25/24 09:52 Height 5 ft 2 in Weight 231 lb 4.238 oz BMI 42.3 BP 128/64 Blood Pressure Location Lt brachial Position Sitting Pulse 70 Pulse Source Pulse Oximeter Pulse Oximetry (%) 97 Oxygen Delivery Method Room Air Intake Visit Reasons: DM Intake Note: Patient present today for Type 2 Diabetes Mellitus Last Diabetic eye exam: 2023 Last Podiatry Visit: 2023 Random Glucose: 83 mg/dl HgA1C: 6.9% Tree Faller Required: No Accompanied by: Self / Same As Patient Allergies codeine [Codeine] Allergy (Severe, Verified 11/25/24 09:56) DIFFICULTY BREATHING Penicillins Adverse Reaction (Intermediate, Verified 11/25/24 09:56) stomach upset semaglutide [From Ozempic] Adverse Reaction (Verified 11/25/24 09:56) Vomiting Medication List - Last Reconciled 11/25/24 by Lucita Mckenzie PA-C adalimumab (Humira(CF) Pen) 40 mg (0.4 mL) subcut Q2W 56 days albuterol sulfate 90 mcg/actuation 2 puffs inhalation Q6H PRN blood sugar diagnostic (OneTouch Ultra Test strips) USE 3 TIMES DAILY blood-glucose meter,continuous (Dexcom G7 Plumber Maintenance) As directed blood-glucose sensor (Dexcom G7 Sensor device) CHANGE EVERY 10 DAYS DIRECTED bumetanide 1 mg PO DAILY cholecalciferol (vitamin D3) 50 mcg PO DAILY gabapentin (Neurontin) 300 mg PO BEDTIME insulin glargine U-300 conc (Toujeo Max U-300 SoloStar) 44 units (0.1467 mL) subcut DAILY insulin lispro (Humalog U-100 Insulin) Inject up to 70 units with patch pump daily subcutaneously daily; lansoprazole (Prevacid 24Hr) 15 mg PO DAILY leflunomide 10 mg PO DAILY lisinopril 20 mg PO DAILY 30 days pen needle, diabetic (Novofine 32) Use daily As directed for insulin pen needle, diabetic (BD Ultra-Fine Opal Pen Needle) Use 4x a day As directed pravastatin 40 mg PO BEDTIME sub-q insulin device, 40 unit (V-GO 40 device) USE DIRECTED HPI HPI DM: Details: Patient is a 74 yo female with DM type 2 diagnosed in her early 40s who presents for continued management of diabetes. She has a significant past medical history of clear cell renal carcinoma, chronic kidney disease, rheumatoid arthritis, hyperlipidemia and diabetes. -she sees Dr. Dave for management of her hypercalcemia, believes it is related to the parathyroid gland. DM: Her A1c is 6.9 today. She is on toujeo 40 units and humalog sliding escal CGM-average glucose 163, 86% usage, gmi 7.2. Very hyperglycemic 4%, hyperglycemic 29%, in range 67%, hypoglycemic less than 1% Micro and macrovascular complications: neuropathy, proliferative retinopathy, nephropathy but no macrovascular disease. Previous medications: Jardiance , Januvia, Victoza, Ozempic, Trulicity Hypoglycemia: very rare Hyperglycemia: +urinary frequency (on diuretic), +nocturia, denies polydypsia Doctor Of Nurse Anesthesia - CDE education: Recently. Has also met with a dietitian and is felt that this is helpful. Assistant Professor Of Mathematics: Up-to-date Ophthalmology evaluation: ou proliferative diabetic retinopathy, goes twice a year for evaluation Nephro: Follows closely with Nephrology and Urology. States that she has an MRI booked because she had an abnormal kidney ultrasound. She does have a history of renal cell carcinoma. CV: Blood pressure today in the office is 128/64. She is on lisinopril 20 mg daily. Cholesterol is controlled with pravastatin 40 mg. [facility] Medical History (Updated 10/13/24 @ 11:56 by iMnal Chapman MD) Adalimumab (Humira) long-term use Osteoarthritis of left knee Hyperparathyroid bone disease Hypogammaglobulinemia Trochanteric bursitis of both hips Leg pain, bilateral Herpes zoster vaccination declined COVID-19 vaccine dose declined Diabetic retinopathy Tubular adenoma of colon Osteopenia History of severe acute respiratory syndrome coronavirus 2 (SARS-CoV-2) disease Obesity due to excess calories 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 Postlaminectomy syndrome MGUS (monoclonal gammopathy of unknown significance) 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 mellitus) Diabetic retinopathy associated with type 2 diabetes mellitus CKD (chronic kidney disease) stage 3, GFR 30-59 ml/min correction (current) use of insulin GERD (gastroesophageal reflux disease) Type 2 diabetes mellitus with diabetic polyneuropathy Essential hypertension Dyslipidemia Surgical History Hx of colonoscopy Hx laparoscopic cholecystectomy Hx of tonsillectomy Hx of cataract surgery History of back surgery Family History Mother Diabetes CVD (cardiovascular disease) HTN (hypertension) Father Hodgkin disease Brother Hodgkin disease Sister Pancreatic cancer Sister Lung cancer Non-Hodgkin lymphoma Paternal Uncle Colon cancer Social History Household Members: None Housing: Condominium Alcohol intake: never Patient Tobacco Use Status: Former Tobacco user Tobacco use type: Cigarette Cigarettes Per Day: 50 Years Smoked: 20 e-Cigarette/Vaping Use: Never Used Advance Directives Date on File: 02/08/22 service: No Current occupational status: retired Cognitive needs: No Hearing needs: No Vision needs: Yes Physical Exam Vital Signs: Last Vital Signs Pulse 70 11/25/24 09:52 BP 128/64 11/25/24 09:52 Pulse Ox 97 11/25/24 09:52 Oxygen Delivery Method Room Air 11/25/24 09:52 BMI result Body Mass Index 42.3 Results AMB Hemoglobin A1c AMB Hemoglobin A1c 6.9 % Last Edit by CARMITA Menezes on 11/25/24 10:12 Results Reviewed Results Reviewed: Laboratory Last Values Glucose (Clinic) 83 mg/dL (60-115) 11/25/24 09:59 Laboratory Tests 08/08/24 11/23/24 10:43 08:45 Sodium 140 Potassium 4.8 Chloride 105 Carbon Dioxide 25 Anion Gap 15 BUN 38 H Creatinine 1.53 H Estimated GFR 33 Random Glucose 94 Hgb A1c (Clinic) 6.6 H AST 30 ALT 15 Laboratory Tests 04/25/24 08:23 Triglycerides 177 H Cholesterol 172 LDL Cholesterol, Calc 88 HDL Cholesterol 49 Assessment & Plan Assessment & Plan (1) Diabetic retinopathy associated with type 2 diabetes mellitus: Code(s): E11.319 - Type 2 diabetes mellitus with unspecified diabetic retinopathy without macular edema Category: Medical Plan: Increase Toujeo to 44 units. Continue with the Humalog sliding scale. She will contact me she develops any hypoglycemia. Reviewed recent labs today. (2) correction (current) use of insulin: Code(s): Z79.4 - correction (current) use of insulin Category: Medical Plan: As above. (3) HTN (hypertension): Code(s): I10 - Essential (primary) hypertension Category: Medical Plan: WNL. Continue current regimen. Orders: Orders AMB Hemoglobin A1c Today E11.42 - Type 2 diabetes mellitus with diabetic polyneuropathy, Z13.9 - Encounter for screening, unspecified, Z79.4 - roasterman (current) use of insulin Medications: Changed From insulin glargine U-300 conc (Toujeo Max U-300 SoloStar) 40 units (0.1333 mL) subcut DAILY 6 mL 5RF To insulin glargine U-300 conc (Toujeo Max U-300 SoloStar) 44 units (0.1467 mL) subcut DAILY 6 mL 5RF Coding Level of Care Code Est Pt Level 4 (71277) Complex EM visit Add On G2211 Diagnoses Diabetic retinopathy associated with type 2 diabetes mellitus E11.319 correction (current) 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
[2024-11-25 10:03] LABS: Glucose, Whole Blood 83 mg/dL (60-115)
--- OUTSIDE RECORDS SUMMARY | 2024-11-25 10:20 | XMS_ITS | Encounter Summary ---
Author Organization [facility] Address [address] [place] [address] Phone Care Team Providers Care Drop Wire Aliner Name Role Phone Ellen Yan MD Primary Care Provider +1- [phone] Encounter Details Date Type Department Care Team (Late st Contact Info) Description 04/01/2022 Telephone [facility] [address] [place] [address] Jim Santiago MD [address] [place] [phone] Social History Tobacco Use Types Packs/Day Years [...] over the weekend. Pls call her at [phone] * Telephone Encounter - Kassi Sotelo - 04/01/2022 10:50 AM EDT Pt called, her insurance will not cover the script for joaquín. It needs a PA please advise Thank you documented in this encounter Plan of Treatment Upcoming Encounters Date Type Department Care Team (Late st Contact Info) Description 01/05/2025 1:15 PM EDT Office Visit [facility] [address] [place] [address] Sorin Carpio MD [address] [facility] [address] [place] [phone] documented as of this encounter Visit Diagnoses Not on filedocumented in this encounter Care Teams Drop Wire Aliner Relationship Specialty Start Date End Date Ellen Yan MD [address] [place] [address] PCP - General Internal Medicine 12/03/20 documented as of this encounter
--- OUTSIDE RECORDS SUMMARY | 2024-11-25 10:20 | XMS_ITS | Clinical Summary ---
Author Organization [facility] Address [address] [facility] [address] [place] [address] Phone Care Team Providers Care Per Diem Name Role Phone Ellen Yan MD Primary Care Provider +1- [phone] Allergies Active Allergy Reactions Criticality Noted Date [...] Visit [facility] [address] [place] [address] Sorin Carpio MD [address] [facility] 204 [place] [phone] Health Maintenance Due Date Last Done Comments [...] AM EDT) Hemoglobin A1C 7.2(H) (4.0-5.6) % [facility] Comment: MONITORING: In known diabetic patients, hemoglobin A1c targets should be discussed with health care provider. DIAGNOSTIC USE: ??The [place] Diabetes Association (ADA) and the World Health [...] Supplement 1 Testing performed or reported by [facility] [employer], a Service of [facility], [address] [place] [address] Lamont Ortega MD, Fish Salter [facility]# [id number] Blood (Blood, Venous) 02/04/2023 10:21 AM EDT 02/04/2023 10:34 AM EDT Jim Santiago MD LAB BLOOD ORDERABLES Final Re sult PAWEL from Last 3 Months or Most Recently Relevant to Health Maintenance Insurance N[place]ADA N[place] Care Teams Per Diem Relationship Specialty Start Date End Date Ellen Yan MD [address] [facility] [place] [address] PCP - General Internal Medicine 12/03/20
--- OUTSIDE RECORDS SUMMARY | 2024-11-25 10:20 | XMS_ITS | Encounter Summary ---
Author Organization [facility] Address [address] [facility] [address] [place] [address] Phone Care Team Providers Care Trim Stencil Maker Name Role Phone Ellen Yan MD Primary Care Provider +1- [phone] Encounter Details Date Type Department Care Team ([facility] Contact Info) Description 04/24/2021 Documentation Only [facility] [address] [facility] [address] [place] [address] Meena Kemp MA Social History [...] Upcoming Encounters Date Type Department Care Team ([facility] Contact Info) Description 01/05/2025 1:15 PM EDT Office Visit [facility] [address] [place] [address] Sorin Carpio MD [address] [facility] [address] [place] [address] documented as of this encounter [...] U/L Total Bilirubin 0.3 MG/DL eGFR Non-Afr Bangladeshi 35 Total Protein, Serum 6.2 Blood 04/09/2021 [...] on filedocumented in this encounter Care Teams Trim Stencil Maker Relationship Specialty Start Date End Date Ellen Yan MD [facility] [place] [address] PCP - General Internal Medicine 12/03/20 documented as of this encounter
== END 2024-11-25 10:21 | disposition home or self-care (01) ==
PROVIDERS: PCP Internal Medicine; Visit Provider Physician Assistant
DX: E11.319 Type 2 diabetes mellitus with unspecified diabetic retinopathy without macular edema (principal); Z79.4 Long term (current) use of insulin; I10 Essential (primary) hypertension; Z13.9 Encounter for screening, unspecified; E11.42 Type 2 diabetes mellitus with diabetic polyneuropathy

== ENCOUNTER → 2024-11-25 09:49 | Outpatient (BNVA) | payer MEDICARE, SELFPAY | PROVIDERS: PCP Internal Medicine; Visit Provider Physician Assistant | DX: E11.319 Type 2 diabetes mellitus with unspecified diabetic retinopathy without macular edema (principal); Z79.4 Long term (current) use of insulin; I10 Essential (primary) hypertension | CPT/HCPCS: 82947; 83036; 99212 ==

== ENCOUNTER → 2024-12-06 09:05 | Outpatient (BNV) | payer MEDICARE, SELFPAY | PROVIDERS: PCP Internal Medicine; Visit Provider Radiology Diagnostic Radiology | DX: N28.1 Cyst of kidney, acquired (principal); C64.9 Malignant neoplasm of unspecified kidney, except renal pelvis | CPT/HCPCS: 74183 ==

== ENCOUNTER 2024-12-06 09:07 | Outpatient (REF) | payer MEDICARE, SELFPAY ==
--- NOTE | ~2024-12-06 | MR_ITS ---
EXAMINATION: MRI Abdomen without and with contrast HISTORY: C64.9 - Malignant neoplasm of unspecified kidney, except renal pelvis COMPARISON: Correlation is made with a renal ultrasound dated 11/14/[address] of the abdomen without and with contrast dated 12/01/2023. TECHNIQUE: Axial in and out of phase T1-weighted gradient echo, axial diffusion weighted, and axial and coronal HASTE T2 with fat saturation images were obtained through the abdomen. Subsequently, fat suppressed axial and coronal T1-weighted images were obtained after the intravenous administration of 10 mL Gadavist. FINDINGS: There is a 3.4 x 3.0 x 1.9 cm area of heterogeneous signal intensity at the posterior aspect of the upper pole of the left kidney, portions of which demonstrate markedly decreased signal intensity consistent with hemosiderin. Additional portions demonstrate fat signal intensity. These findings are consistent with an ablation zone. There is no associated contrast enhancement. The left kidney is atrophic when compared to the right. There is a 1.8 cm nonenhancing cyst at the lower pole the right kidney. This demonstrates mildly decreased T2 signal intensity and increased signal intensity when compared to simple fluid and is compatible with a proteinaceous cyst. There are subcentimeter cysts at the lower pole the right kidney and at the upper pole and interpolar regions of the left kidney. There is no solid renal mass. There is no hydronephrosis. There is no significant loss of signal intensity within the liver on opposed phase imaging to suggest steatosis. There is no enhancing liver mass. The hepatic and portal veins are patent. The gallbladder is surgically absent. The spleen, pancreas, and adrenals are unremarkable. No retroperitoneal lymphadenopathy or ascites is identified in the upper abdomen. MR/MR abdomen wo/w con IMPRESSION: 3.4 x 3.0 x 1.9 cm ablation zone adjacent to the upper pole of the left kidney corresponding to the abnormality seen on ultrasound. No enhancing mass is identified. 2. 1.8 cm proteinaceous cyst at the lower pole the right kidney. Electronically signed by: Bang Martin MD 12/06/2024 12:47 PM [facility]
--- OUTSIDE RECORDS SUMMARY | 2024-12-06 09:58 | XMS_ITS | Encounter Summary ---
Author Organization [facility] Address [address] [facility] 200 [place] [address] Phone Care Team Providers Care Geotechnical Intern Name Role Phone Ellen Yan MD Primary Care Provider +1- [phone] Encounter Details Date Type Department Care Team ([facility] Contact Info) Description 04/24/2021 Documentation Only [facility] [address] [facility] [address] [place] [address] Meena Kemp MA Social History [...] Upcoming Encounters Date Type Department Care Team ([facility] Contact Info) Description 01/05/2025 1:15 PM EDT Office Visit [facility] [address] [place] [address] Sorin Carpio MD [address] [facility] [address] [place] [address] documented as of this encounter [...] U/L Total Bilirubin 0.3 MG/DL eGFR Non-Afr Argentine 35 Total Protein, Serum 6.2 Blood 04/09/2021 [...] on filedocumented in this encounter Care Teams Geotechnical Intern Relationship Specialty Start Date End Date Ellen Yan MD [facility] [place] [address] PCP - General Internal Medicine 12/03/20 documented as of this encounter
--- OUTSIDE RECORDS SUMMARY | 2024-12-06 09:58 | XMS_ITS | Patient Health Record ---
Author Organization [facility] Address [address] [place] [address] Care Team Providers Care Stna Name Role Phone Yuriy GARCIA, Lyndsay Primary Care Provider Bang Moore Unavailable [phone] ALLERGIES Allergen (clinical drug ingredient) Drug/Non Drug [...] W/U Status Risk SNOMED Code Notes Problem Epigastric abdominal pain (R10.13) Active confirmed 10275544 Problem History of adenomatous polyp of colon (Z86.010) Active confirmed 389759619 Problem Diarrhea (R19.7) Active confirmed Diarr hea (25426373) Problem Change in bowel habit (R19.4) Active confirmed Change in malu l habit (58030472) Problem Calculus of gallbladder without cholecystitis without obstruction (K80.20) Active confirmed 37530263 Problem Gastroesophageal reflux disease without esophagitis (K21.9) Active confirmed 774885952 Problem Diarrhea, unspecified type (R19.7) Active confirmed 87825868 Problem RUQ abdominal pain (R10.11) Active confirmed 654556989 Problem RUQ pain (R10.11) Active confirmed 3017 [address]404 Problem Left renal mass (N28.89) Active confirmed 569276103 Problem Abnormal ultrasound of left kidney (R93.422) Active confirmed 47416661426475229 PLAN OF TREATMENT Pending Test Test Name Order Date BUN 04/05/2023 LIVER PROFILE 03/24/2023 CBC w DIFF 04/05/2023 CBC w DIFF 09/02/2019 CBC w DIFF 03/24/2023 CT ABD & PELVIS WWO CONTRAST 04/05/2023 Electrolytes 04/05/2023 Creatinine 04/05/2023 CT abdomen pelvis wo/w con 04/15/2023 US abdomen complete 03/24/2023 Future Test Test Name Order Date COLONOSCOPY 09/02/2019 Next Appt Details Provider Name:Bang Little , 01/12/2025 10:40:00 AM, [address] [facility], [address], [place], [address], Insurance Providers Payer Name Payer Address Payer Phone Subscriber Number Group Number Insured Name Patient Relationship to Insured Coverage Start Date Coverage End Date [employer] [address] [place] [phone] [id number] CHANTELLE FRIEDMAN Self - patient is the insured MEDICAL (GENERAL) HISTORY Medical History History ICD Code IDDM Elevated Cholesterol Hypertension Rheumatoid arthritis Urinary incontinence- mild GERD-neg EGD in 2000 Neg. colonoscopy in 2000 and 08/2010 Denies [place],CVA,Lung disease,renal disease Bronchitis Edema of ankles Colonoscopy in 11/2019 with a single tubular adenoma removed; no colitis, biopsies neg for microscopic colitis Neg. celiac disease labs in 2018 Surgical History Surgery Date(Month/Year) Back surgery Cataract removal Tonsillectomy CCY by Dr Dickson 10/2019
--- OUTSIDE RECORDS SUMMARY | 2024-12-06 09:58 | XMS_ITS | Encounter Summary ---
Author Organization [facility] Address [address] [place] [address] Phone Care Team Providers Care Travel Service Consultant Name Role Phone Ellen Yan MD Primary Care Provider +1- [phone] Encounter Details Date Type Department Care Team (Late st Contact Info) Description 04/01/2022 Telephone [facility] [address] [place] [address] Jim Santiago MD [address] [place] [phone] Social History Tobacco Use Types Packs/Day Years [...] over the weekend. Pls call her at [phone] * Telephone Encounter - Kassi Sotelo - 04/01/2022 10:50 AM EDT Pt called, her insurance will not cover the script for joaquín. It needs a PA please advise Thank you documented in this encounter Plan of Treatment Upcoming Encounters Date Type Department Care Team (Late st Contact Info) Description 01/05/2025 1:15 PM EDT Office Visit [facility] [address] [place] [address] Sorin Carpio MD 25[address] [facility] 204 [place] [phone] documented as of this encounter Visit Diagnoses Not on filedocumented in this encounter Care Teams Travel Service Consultant Relationship Specialty Start Date End Date Ellen Yan MD [address] [place] [address] PCP - General Internal Medicine 12/03/20 documented as of this encounter
--- OUTSIDE RECORDS SUMMARY | 2024-12-06 09:58 | XMS_ITS | Clinical Summary ---
Author Organization [facility] Address [address] [facility] 20 0 [place] [address] Phone Care Team Providers Care Curing Machine Operator Name Role Phone Ellen Yan MD Primary Care Provider +1- [phone] Allergies Active Allergy Reactions Criticality Noted Date [...] Visit [facility] [address] [place] [address] Sorin Carpio MD 57[address] [facility] 204 [place] [phone] Health Maintenance Due Date Last Done Comments [...] AM EDT) Hemoglobin A1C 7.2(H) (4.0-5.6) % [facility] Comment: MONITORING: In known diabetic patients, hemoglobin A1c targets should be discussed with health care provider. DIAGNOSTIC USE: ??The [place] Diabetes Association (ADA) and the World Health [...] Supplement 1 Testing performed or reported by [facility], a Service of [facility], [address] [place] [address] Lamont Ortega MD, Field Support Rep [facility]# [id number] Blood (Blood, Venous) 02/04/2023 10:21 AM EDT 02/04/2023 10:34 AM EDT Jim Santiago MD LAB BLOOD ORDERABLES Final Re sult PAWEL from Last 3 Months or Most Recently Relevant to Health Maintenance Insurance [place] Care Teams Curing Machine Operator Relationship Specialty Start Date End Date Ellen Yan MD 1961 [facility] [place] [address] PCP - General Internal Medicine 12/03/20
[2024-12-06] MEDS: gadobutroL 10 ML VIAL IVPUSH (10:00)
== END 2024-12-06 09:08 | disposition home or self-care (01) ==
LOC: HO.MRI 09:07
PROVIDERS: PCP Internal Medicine; Visit Provider Nurse Practitioner Family
DX: C64.9 Malignant neoplasm of unspecified kidney, except renal pelvis (principal)
CPT/HCPCS: 74183; A9585

== ENCOUNTER 2024-12-07 08:50 | Outpatient (AMB) | payer MEDICARE, SELFPAY ==
[2024-12-07 09:07] VITALS: BP 136/84; PULSE 62; O2SAT 92; BMI 42.3
--- NOTE | 2024-12-07 09:07 | A.OFFVIS_ITS ---
Vital Signs 12/07/24 09:07 Height 5 ft 2 in Weight 231 lb 0.711 oz BMI 42.3 BP 136/84 Blood Pressure Location Lt brachial Position Sitting Pulse 62 Pulse Source Pulse Oximeter Pulse Oximetry (%) 92 Oxygen Delivery Method Room Air Intake Visit Reasons: hypercalcemia Intake Note: Patient present today for Hypercalcemia follow up. Digital Strategist Senior Manager Required: No Accompanied by: Self / Same As Patient Allergies codeine [Codeine] Allergy (Severe, Verified 12/07/24 09:12) DIFFICULTY BREATHING Penicillins Adverse Reaction (Intermediate, Verified 12/07/24 09:12) stomach upset semaglutide [From Ozempic] Adverse Reaction (Verified 12/07/24 09:12) Vomiting Medication List - Last Reconciled 12/07/24 by Bang Dave MD adalimumab (Humira(CF) Pen) 40 mg (0.4 mL) subcut Q2W 56 days albuterol sulfate 90 mcg/actuation 2 puffs inhalation Q6H PRN blood sugar diagnostic (Primaeva MedicalTouch Ultra Test strips) USE 3 TIMES DAILY blood-glucose meter,continuous (DexDraftMix G7 Front Window Cashier) As directed blood-glucose sensor (Dexcom G7 Sensor device) CHANGE EVERY 10 DAYS DIRECTED bumetanide 1 mg PO DAILY cholecalciferol (vitamin D3) 50 mcg PO DAILY gabapentin (Neurontin) 300 mg PO BEDTIME insulin lispro (Humalog U-100 Insulin) Inject up to 80 units with patch pump daily subcutaneously daily; lansoprazole (Prevacid 24Hr) 15 mg PO DAILY leflunomide 10 mg PO DAILY lisinopril 20 mg PO DAILY 30 days pen needle, diabetic (Novofine 32) Use daily As directed for insulin pen needle, diabetic (BD Ultra-Fine Opal Pen Needle) Use 4x a day As directed pravastatin 40 mg PO BEDTIME sub-q insulin device, 40 unit (V-GO 40 device) USE DIRECTED Toujeo Max U-300 SoloStar (insulin glargine U-300 conc) 44 units (0.1467 mL) subcut DAILY 30 days NS HPI Comments Details: This is a 74-year-old white female previously seen for type 2 diabetes management now being managed by the primary care diabetes team. She was sent to endocrinology today for evaluation of hypercalcemia. Patient has CKD stage IIIB. She has a persistent elevation of PTH levels. One calcium level was checked that was slightly elevated but a subsequent 1 was normal. She has a history of mild osteoporosis with T-score of -1.1 No hx of fracture There also is a history of small kidney stones on ultrasound. She denies any prior history of fracture. Her last nephrology visit was Kai in 07/[address] Camargo . 25- hydroxy vitamin-D levels have been normal. There has been no 24 hour urine for calcium The patient is currently taking vitamin-D3 2000 IU/day and calcium supplementation stopped . repeat blood work showed continued persistent elevation of PTH as well as low 24 hour urine for calcium and normal 25 hydroxy vitamin-D COUNTS INCLUDE 234 BEDS AT THE [facility] Medical History (Updated 10/13/24 @ 11:56 by Minal Chapman MD) Adalimumab (Humira) long-term use Osteoarthritis of left knee Hyperparathyroid bone disease Hypogammaglobulinemia Trochanteric bursitis of both hips Leg pain, bilateral Herpes zoster vaccination declined COVID-19 vaccine dose declined Diabetic retinopathy Tubular adenoma of colon Osteopenia History of severe acute respiratory syndrome coronavirus 2 (SARS-CoV-2) disease Obesity due to excess calories 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 Postlaminectomy syndrome MGUS (monoclonal gammopathy of unknown significance) 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 mellitus) Diabetic retinopathy associated with type 2 diabetes mellitus CKD (chronic kidney disease) stage 3, 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 GERD (gastroesophageal reflux disease) Type 2 diabetes mellitus with diabetic polyneuropathy Essential hypertension Dyslipidemia Surgical History Hx of colonoscopy Hx laparoscopic cholecystectomy Hx of tonsillectomy Hx of cataract surgery History of back surgery Family History Mother Diabetes CVD (cardiovascular disease) HTN (hypertension) Father Hodgkin disease Brother Hodgkin disease Sister Pancreatic cancer Sister Lung cancer Non-Hodgkin lymphoma Paternal Uncle Colon cancer Social History Household Members: None Housing: Condominium Alcohol intake: never Patient Tobacco Use Status: Former Tobacco user Tobacco use type: Cigarette Cigarettes Per Day: 50 Years Smoked: 20 e-Cigarette/Vaping Use: Never Used Advance Directives Date on File: 02/08/22 service: No Current occupational status: retired Cognitive needs: No Hearing needs: No Vision needs: Yes Physical Exam Vital Signs: Last Vital Signs Pulse 62 12/07/24 09:07 BP 136/84 12/07/24 09:07 Pulse Ox 92 12/07/24 09:07 Oxygen Delivery Method Room Air 12/07/24 09:07 BMI result Body Mass Index 42.3 Assessment & Plan Assessment & Plan (1) Hyperparathyroid bone disease: Code(s): E21.0 - Primary hyperparathyroidism Category: Medical Plan: 74-year-old white female with a history of CKD stage IIIB with elevation of PTH most likely secondary hyperparathyroidism as result of CKD. Her 25 hydroxy vitamin-D level is normal and she had 1 spurious elevation of calcium. Rule out hypercalciuria as well as decreased calcium absorption as cause for elevation of PTH Plan is to continue vitamin-D supplementation Will have patient follow-up with Nephrology Dr. Camargo to optimize CKD-BMD with possible use of calcitriol . at this point, there is no need to have patient follow up with endocrinology as she has low bone mass which does not warrant pharmacologic therapy for osteoporosis. . Coding Level of Care Code Est Pt Level 3 (33730) Diagnoses Hyperparathyroid bone disease E21.0
--- OUTSIDE RECORDS SUMMARY | 2024-12-07 09:39 | XMS_ITS | Patient Health Record ---
Author Organization [facility] Address [address] [place] [address] Care Team Providers Care Electrical Assembly Technician Name Role Phone Yuriy GARCIA, Lyndsay Primary Care Provider Bang Moore Unavailable [phone] ALLERGIES Allergen (clinical drug ingredient) Drug/Non Drug [...] Problem Epigastric abdominal pain (R10.13) Active confirmed 49151077 Problem History of adenomatous polyp of colon (Z86.010) Active confirmed 531172843 Problem Diarrhea (R19.7) Active confirmed Diarr hea (92714430) Problem Change in bowel habit (R19.4) Active confirmed Change in malu l habit (86641314) Problem Calculus of gallbladder without cholecystitis without obstruction (K80.20) Active confirmed 51555827 Problem Gastroesophageal reflux disease without esophagitis (K21.9) Active confirmed 221660192 Problem Diarrhea, unspecified type (R19.7) Active confirmed 30544508 Problem RUQ abdominal pain (R10.11) Active confirmed 349427784 Problem RUQ pain (R10.11) Active confirmed 3017 40558 Problem Left renal mass (N28.89) Active confirmed 932449814 Problem Abnormal ultrasound of left kidney (R93.422) Active confirmed 57041867435011602 PLAN OF TREATMENT Pending Test Test Name Order Date BUN 04/05/2023 LIVER PROFILE 03/24/2023 CBC w DIFF 03/24/2023 CBC w DIFF 04/05/2023 CBC w DIFF 09/02/2019 CT ABD & PELVIS WWO CONTRAST 04/05/2023 Electrolytes 04/05/2023 Creatinine 04/05/2023 CT abdomen pelvis wo/w con 04/15/2023 US abdomen complete 03/24/2023 Future Test Test Name Order Date COLONOSCOPY 09/02/2019 Next Appt Details Provider Name:Bang Little , 01/12/2025 10:40:00 AM, [address] [facility], [address], [place], [address], Insurance Providers Payer Name Payer Address Payer Phone Subscriber Number Group Number Insured Name Patient Relationship to Insured Coverage Start Date Coverage End Date [employer] [address] [place] [phone] [id number] CHANTELLE FRIEDMAN Self - patient is the insured MEDICAL (GENERAL) HISTORY Medical History History ICD Code IDDM Elevated Cholesterol Hypertension Rheumatoid arthritis Urinary incontinence- mild GERD-neg EGD in 2000 Neg. colonoscopy in 2000 and 08/2010 Denies GA,CVA,Lung disease,renal disease Bronchitis Edema of ankles Colonoscopy in 11/2019 with a single tubular adenoma removed; no colitis, biopsies neg for microscopic colitis Neg. celiac disease labs in 2018 Surgical History Surgery Date(Month/Year) Back surgery Cataract removal Tonsillectomy [facility] by Dr Dickson 10/2019
--- OUTSIDE RECORDS SUMMARY | 2024-12-07 09:39 | XMS_ITS | Clinical Summary ---
Author Organization [facility] Address 100 [facility] 20 0 [place] [address] Phone Care Team Providers Care Sales Merchandiser Name Role Phone Ellen Yan MD Primary Care Provider +1- [phone] Allergies Active Allergy Reactions Criticality Noted Date [...] Visit [facility] [address] [place] [address] Sorin Carpio MD [address] [facility] 204 [place] [phone] Health Maintenance Due Date Last Done Comments [...] AM EDT) Hemoglobin A1C 7.2(H) (4.0-5.6) % [facility] Comment: MONITORING: In known diabetic patients, hemoglobin A1c targets should be discussed with health care provider. DIAGNOSTIC USE: ??The [place] Diabetes Association (ADA) and the World Health [...] Supplement 1 Testing performed or reported by [facility], a Service of [facility], [address] [place] [address] Lamont Ortega MD, Behavioral Sciences Instructor [facility]# [id number] Blood (Blood, Venous) 02/04/2023 10:21 AM EDT 02/04/2023 10:34 AM EDT Jim Santiago MD LAB BLOOD ORDERABLES Final Re sult PAWEL from Last 3 Months or Most Recently Relevant to Health Maintenance Insurance [employer] [place] [employer] [place] Care Teams Sales Merchandiser Relationship Specialty Start Date End Date Ellen Yan MD [address] [facility] [place] [address] PCP - General Internal Medicine 12/03/20
--- OUTSIDE RECORDS SUMMARY | 2024-12-07 09:39 | XMS_ITS | Encounter Summary ---
Author Organization [facility] Address 100 [facility] 200 [place] [address] Phone Care Team Providers Care Hardware Designer Name Role Phone Ellen Yan MD Primary Care Provider +1- [phone] Encounter Details Date Type Department Care Team ([facility] Contact Info) Description 04/24/2021 Documentation Only [facility] [address] [facility] 200 [place] [address] Meena Kemp MA Social History [...] Upcoming Encounters Date Type Department Care Team ([facility] Contact Info) Description 01/05/2025 1:15 PM EDT Office Visit [facility] [address] [place] [address] Sorin Carpio MD [address] [facility] [address] [place] [address] documented as of this encounter [...] U/L Total Bilirubin 0.3 MG/DL eGFR Non-Afr Paragu[place] 35 Total Protein, Serum 6.2 Blood 04/09/2021 [...] on filedocumented in this encounter Care Teams Hardware Designer Relationship Specialty Start Date End Date Ellen Yan MD [facility] [place] [address] PCP - General Internal Medicine 12/03/20 documented as of this encounter
--- OUTSIDE RECORDS SUMMARY | 2024-12-07 09:39 | XMS_ITS | Encounter Summary ---
Author Organization [facility] Address [address] [place] [address] Phone Care Team Providers Care Director Home Health Name Role Phone Ellen Yan MD Primary Care Provider +1- [phone] Encounter Details Date Type Department Care Team (Late st Contact Info) Description 04/01/2022 Telephone [facility] [address] [place] [address] Jim Santiago MD [address] [place] [phone] Social History Tobacco Use Types Packs/Day Years [...] over the weekend. Pls call her at [phone] * Telephone Encounter - Kassi Sotelo - 04/01/2022 10:50 AM EDT Pt called, her insurance will not cover the script for joaquín. It needs a PA please advise Thank you documented in this encounter Plan of Treatment Upcoming Encounters Date Type Department Care Team (Late st Contact Info) Description 01/05/2025 1:15 PM EDT Office Visit [facility] [address] [place] [address] Sorin Carpio MD [address] [facility] 204 [place] [phone] documented as of this encounter Visit Diagnoses Not on filedocumented in this encounter Care Teams Director Home Health Relationship Specialty Start Date End Date Ellen Yan MD [address] [place] [address] PCP - General Internal Medicine 12/03/20 documented as of this encounter
== END 2024-12-07 09:34 | disposition home or self-care (01) ==
PROVIDERS: PCP Internal Medicine; Visit Provider Internal Medicine Endocrinology, Diabetes & Metabolism
DX: E21.0 Primary hyperparathyroidism (principal)
CPT/HCPCS: 99213

== ENCOUNTER → 2024-12-07 08:50 | Outpatient (BNVA) | payer MEDICARE, SELFPAY | PROVIDERS: PCP Internal Medicine; Visit Provider Internal Medicine Endocrinology, Diabetes & Metabolism | DX: E21.0 Primary hyperparathyroidism (principal); N18.32 Chronic kidney disease, stage 3b | CPT/HCPCS: 99212 ==

== ENCOUNTER 2024-12-08 10:10 | Outpatient (AMB) | payer MEDICARE, SELFPAY ==
--- NOTE | 2024-12-08 10:13 | A.OFFVIS_ITS ---
Intake Visit Reasons: 6m/US(MRI 12/06) Intake Note: * Patient presents for follow up visit for Renal Cell Carcinoma and MRI Results Imagin12/06/24 Urology Medication: none Blood Thinner: none Watch Crystal Edge Grinder Required: No Accompanied by: Self / Same As Patient Allergies codeine [Codeine] Allergy (Severe, Verified 12/08/24 10:25) DIFFICULTY BREATHING Penicillins Adverse Reaction (Intermediate, Verified 12/08/24 10:25) stomach upset semaglutide [From Ozempic] Adverse Reaction (Verified 12/08/24 10:25) Vomiting Medication List - Last Reconciled 12/08/24 by YANETH Simpson adalimumab (Humira(CF) Pen) 40 mg (0.4 mL) subcut Q2W 56 days albuterol sulfate 90 mcg/actuation 2 puffs inhalation Q6H PRN blood sugar diagnostic (Accelerize New Mediauch Ultra Test strips) USE 3 TIMES DAILY blood-glucose meter,continuous (DexREPLICEL LIFE SCIENCES G7 Security Operations Center Analyst) As directed blood-glucose sensor (Dexcom G7 Sensor device) CHANGE EVERY 10 DAYS DIRECTED bumetanide 1 mg PO DAILY cholecalciferol (vitamin D3) 50 mcg PO DAILY coQ10 (ubiquinol) (Qunol Meng CoQ10) 100 mg PO BID gabapentin (Neurontin) 300 mg PO BEDTIME insulin lispro (Humalog U-100 Insulin) Inject up to 80 units with patch pump daily subcutaneously daily; lansoprazole (Prevacid 24Hr) 15 mg PO DAILY leflunomide 10 mg PO DAILY lisinopril 20 mg PO DAILY 30 days pen needle, diabetic (Novofine 32) Use daily As directed for insulin pen needle, diabetic (BD Ultra-Fine Opal Pen Needle) Use 4x a day As directed pravastatin 40 mg PO BEDTIME sub-q insulin device, 40 unit (V-GO 40 device) USE DIRECTED Toujeo Max U-300 SoloStar (insulin glargine U-300 conc) 44 units (0.1467 mL) subcut DAILY 30 days NS HPI Comments Details: Paola is a pleseant 74 year old female patient of Dr. Yan. She has a PMH CKD stage 3, diabetic retinopathy, dyslipidemia, essential hypertenstion, IDDM, obesity, osteopenia, postlaminectomy syndrome, spinal stenosis of lumbar region with radiculopathy, and spondylosis of lumbar spine. She presents to the office today for follow-up of her clear cell renal cell carcinoma. Patient is status post renal biopsy and cryoablation on 05/27/23. Of note during last office visit renal ultrasound was ordered for surveillance monitoring that noted highly worrisome mass upper pole left kidney for which dictated renal protocol was suggested therefore repeat MRI renal mass protocol was ordered and performed. These results were communicated with the patient today. 12/06 3 x 4 cm ablation zone adjacent to the left upper pole of the left kidney corresponding to the abnormality seen on ultrasound. No enhancing mass is identified. 1.8 cm proteinaceous cyst at the lower pole of the right kidney. These images were also reviewed with Dr. Lassiter. She continues to follow-up with Dr. Whittington for surveillance monitoring as well. She also reports following up with nephrology and endocrinology for question of hyper/hypo vitamin-D. She also continues to follow-up with oncology and her PCP. She currently denies any bothersome urinary issues or concerns. In office urinalysis results reviewed with the patient today. Patient with PT1A renal cell carcinoma [place] grade 3. When asked she denies urinary urgency, urinary frequency, incontinence, nocturia, hematuria, dysuria, foul smelling urine, changes to urinary stream, flank pain, fever, and or chills. She is happy with her current voiding parameters. She otherwise offers no issues or concerns at this time. [facility] Medical History Adalimumab (Humira) long-term use Osteoarthritis of left knee Hyperparathyroid bone disease Hypogammaglobulinemia Trochanteric bursitis of both hips Leg pain, bilateral Herpes zoster vaccination declined COVID-19 vaccine dose declined Diabetic retinopathy Tubular adenoma of colon Osteopenia History of severe acute respiratory syndrome coronavirus 2 (SARS-CoV-2) disease Obesity due to excess calories 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 Postlaminectomy syndrome MGUS (monoclonal gammopathy of unknown significance) 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 mellitus) Diabetic retinopathy associated with type 2 diabetes mellitus CKD (chronic kidney disease) stage 3, GFR 30-59 ml/min care home (current) use of insulin GERD (gastroesophageal reflux disease) Type 2 diabetes mellitus with diabetic polyneuropathy Essential hypertension Dyslipidemia Surgical History Hx of colonoscopy Hx laparoscopic cholecystectomy Hx of tonsillectomy Hx of cataract surgery History of back surgery Family History Mother Diabetes CVD (cardiovascular disease) HTN (hypertension) Father Hodgkin disease Brother Hodgkin disease Sister Pancreatic cancer Sister Lung cancer Non-Hodgkin lymphoma Paternal Uncle Colon cancer Social History Household Members: None Housing: Condominium Alcohol intake: never Patient Tobacco Use Status: Former Tobacco user Tobacco use type: Cigarette Cigarettes Per Day: 50 Years Smoked: 20 e-Cigarette/Vaping Use: Never Used Advance Directives Date on File: 02/08/22 service: No Current occupational status: retired Cognitive needs: No Hearing needs: No Vision needs: Yes Review of Systems Const Reports as per HPI Eyes Reports no additional complaints ENT Reports no additional complaints Card Reports as per HPI Resp Reports no additional complaints GI Reports as per HPI Reports as per HPI Musc Reports as per HPI Neuro Reports as per HPI Psych Reports no additional complaints Endo Reports as per HPI Eduardo/Lymph Reports no additional complaints Aller/Immun Reports no additional complaints Physical Exam Const General: cooperative, healthy appearing, comfortable, no acute distress, well developed, alert and awake Nutritional Appearance: overweight Orientation/consciousness: patient oriented x3 Limitations: no limitations HEENT Head: Yes normal to inspection, Yes normocephalic and Yes atraumatic Ears: hearing grossly normal bilaterally Eyes General: appearance normal, both eyes and all related structures Neck Neck: Yes normal visual inspection and Yes trachea midline Chest Chest palpation & inspection: normal inspection of the chest Resp Effort & Inspection: normal respiratory effort and able to speak in complete sentences Cardio Rate: regular rate GI Inspection: Yes normal to inspection General: Yes no CVA tenderness Back/Spine/Pelvis Back: no CVA tenderness Skin General skin exam: no rashes or lesions noted Neuro General: patient oriented x3 Extrem General: Yes normal to inspection Psych Appearance: grossly normal and well kempt Mental Status: mental status grossly normal Speech and movement: Normal speech and movement present and Clear speech present Affect: normal affect Attitude: cooperative Thought process: Normal thought process present Thought content: Normal thought content present Insight: Good insight present (Psych) Judgement: Good judgement present (Psych) Results AMB Urinalysis, Automated UA Leukoctes 0 Mary/uL Last Edit by [employer] [facility] [employer] on 12/08/24 10:41 UA Nitrite Last Edit by Philrealestatesdylan Parnell on 12/08/24 10:41 UA Urobilinogen 0.2 mg/dL Last Edit by [employer]realestatese [facility] on 12/08/24 10:41 UA Protein 0 mg/dL Last Edit by [employer] on 12/08/24 10:41 UA pH 6.0 Last Edit by [employer] on 12/08/24 10:41 UA Blood 0 Rajinder/uL Last Edit by [employer] on 12/08/24 10:41 UA Specific [place] 1.010 Last Edit by [employer] on 12/08/24 10:41 UA Ketone Last Edit by [employer] on 12/08/24 10:41 UA Bilirubin 0 mg/dL Last Edit by [employer] on 12/08/24 10:41 UA Glucose 0 mg/dL Last Edit by [employer] on 12/08/24 10:41 Results Reviewed Results Reviewed: Laboratory Last Values Urine pH (Auto) 6.0 12/08/24 10:37 Specific [place] (Auto) 1.010 12/08/24 10:37 Urine Protein (Auto) 0 mg/dL 12/08/24 10:37 Glucose (UA)(Auto) 0 mg/dL 12/08/24 10:37 Urine Blood (Auto) 0 Rajinder/uL 12/08/24 10:37 Urine Bilirubin (Auto) 0 mg/dL 12/08/24 10:37 Urine Urobilinogen (Auto) 0.2 mg/dL 12/08/24 10:37 Leukocyte Esterase (Auto) 0 Mary/uL 12/08/24 10:37 Date of Service: 12/06/24 HISTORY: C64.9 - Malignant neoplasm of unspecified kidney, except renal pelvis COMPARISON: Correlation is made with a renal ultrasound dated 11/14/[address] of the abdomen without and with contrast dated 12/01/2023. TECHNIQUE: Axial in and out of phase T1-weighted gradient echo, axial diffusion weighted, and axial and coronal HASTE T2 with fat saturation images were obtained through the abdomen. Subsequently, fat suppressed axial and coronal T1-weighted images were obtained after the intravenous administration of 10 mL Gadavist. FINDINGS: There is a 3.4 x 3.0 x 1.9 cm area of heterogeneous signal intensity at the posterior aspect of the upper pole of the left kidney, portions of which demonstrate markedly decreased signal intensity consistent with hemosiderin. Additional portions demonstrate fat signal intensity. These findings are consistent with an ablation zone. There is no associated contrast enhancement. The left kidney is atrophic when compared to the right. There is a 1.8 cm nonenhancing cyst at the lower pole the right kidney. This demonstrates mildly decreased T2 signal intensity and increased signal intensity when compared to simple fluid and is compatible with a proteinaceous cyst. There are subcentimeter cysts at the lower pole the right kidney and at the upper pole and interpolar regions of the left kidney. There is no solid renal mass. There is no hydronephrosis. There is no significant loss of signal intensity within the liver on opposed phase imaging to suggest steatosis. There is no enhancing liver mass. The hepatic and portal veins are patent. The gallbladder is surgically absent. The spleen, pancreas, and adrenals are unremarkable. No retroperitoneal lymphadenopathy or ascites is identified in the upper abdomen. IMPRESSION: 3.4 x 3.0 x 1.9 cm ablation zone adjacent to the upper pole of the left kidney corresponding to the abnormality seen on ultrasound. No enhancing mass is identified. 2. 1.8 cm proteinaceous cyst at the lower pole the right kidney. Date of Service: 11/14/24 Procedure(s): US renal BI Findings: Right kidney at 11.8 cm. 19 mm lower pole cysts. Otherwise normal. No stones or hydronephrosis. Left kidney at 9.3 cm. A complex mass at 3.6 x 3.8 x 2.5 cm in the upper pole appearing exophytic and new from prior. A smaller hyperechoic focus seen on the 04/01/2023 ultrasound and a 1.3 cm focus within the cortex on subsequent 06/01/2024 ultrasound. Current appearance reflects a significant change or new lesion. IMPRESSION: Highly worrisome mass upper pole left kidney for which dedicated renal protocol CT suggested for follow-up. Assessment & Plan Assessment & Plan (1) Clear cell renal cell carcinoma: Comment: Mass was treated with ablative procedure May 2023 Code(s): C64.9 - Malignant neoplasm of unspecified kidney, except renal pelvis Category: Medical Plan In office urinalysis results with the patient today; as noted above. Recent ultrasound as well as MRI results reviewed with the patient today; as noted above. Patient currently denies any bothersome urinary issues or concerns. She reports be happy with current voiding parameters. We discussed importance of continuation of following up with providers for continuity of care and to avoid any delay in treatment. Will continue with surveillance monitoring at this time. Will obtain MRI in 6 months. Follow-up in 6 months with imaging to be completed prior; or sooner with any issues, concerns, and or questions. Orders: Orders AMB Urinalysis Automated Today Z13.9 - Encounter for screening, unspecified MR abdomen wo/w con 6 Months C64.9 - Malignant neoplasm of unspecified kidney, except renal pelvis Patient Instructions: The patient had an opportunity to ask questions regarding the treatment plan. All questions were answered. Physical exam, labs, and imaging were discussed and reviewed in detail. As well as risks, benefits, and discussion of treatment choices. No major barriers to understanding were identified. The patient expressed understanding and agreement with the above treatment plan. The patient was made aware they should contact our office by phone for worsening of their current condition, the appearance of new symptoms, or with any questions or concerns. Compliance is encouraged with any medications and follow up testing that is ordered. It is a privilege to be allowed the opportunity to participate in? your urological care.? Again, if you have any questions or concerns If you have any questions or concerns please do not hesitate to contact me. The office is [phone]. This note is constructed using voice recognition software. While every effort has been made to ensure accuracy aviation technical systems specialist errors may have been included. Yours sincerely, Soni Victoria, TAILING MACHINE OPERATOR-BC Coding Level of Care Code Est Pt Level 3 (20505) Complex EM visit Add On G2211 Diagnoses Clear cell renal cell carcinoma C64.9
--- OUTSIDE RECORDS SUMMARY | 2024-12-08 11:45 | XMS_ITS | Clinical Summary ---
Author Organization [facility] Address [address] [facility] [address] [place] [address] Phone Care Team Providers Care Pulp Machine Operator Name Role Phone Ellen Yan MD Primary Care Provider [phone]- [phone] Allergies Active Allergy Reactions Criticality Noted Date [...] [facility] [address] [place] [address] Sorin Carpio MD [address] [facility] [address] [place] [phone] Health Maintenance Due Date Last Done Comments [...] AM EDT) Hemoglobin A1C 7.2(H) (4.0-5.6) % [facility] Comment: MONITORING: In known diabetic patients, hemoglobin A1c targets should be discussed with health care provider. DIAGNOSTIC USE: ??The [place] Diabetes Association (ADA) and the World Health [...] Supplement 1 Testing performed or reported by [facility], a Service of [facility], [address] [place] [address] Lamont Ortega MD, Supervisor Dental Laboratory [facility]# [id number] Blood (Blood, Venous) 02/04/2023 10:21 AM EDT 02/04/2023 10:34 AM EDT Jim Santiago MD LAB BLOOD ORDERABLES Final Re sult PAWEL from Last 3 Months or Most Recently Relevant to Health Maintenance Insurance [employer] Care Teams Pulp Machine Operator Relationship Specialty Start Date End Date Ellen Yan MD [address] [facility] [place] [address] PCP - General Internal Medicine 12/03/20
--- OUTSIDE RECORDS SUMMARY | 2024-12-08 11:45 | XMS_ITS | Encounter Summary ---
Author Organization [facility] Address [address] [place] [address] Phone Care Team Providers Care Demolition Expert Name Role Phone Ellen Yan MD Primary Care Provider +1- [phone] Encounter Details Date Type Department Care Team (Late st Contact Info) Description 04/01/2022 Telephone [facility] [address] [place] [address] Jim Santiago MD [address] [place] [phone] Social History Tobacco Use Types Packs/Day Years [...] over the weekend. Pls call her at [phone] * Telephone Encounter - Kassi Sotelo - 04/01/2022 10:50 AM EDT Pt called, her insurance will not cover the script for joaquín. It needs a PA please advise Thank you documented in this encounter Plan of Treatment Upcoming Encounters Date Type Department Care Team (Late st Contact Info) Description 01/05/2025 1:15 PM EDT Office Visit [facility] [address] [place] [address] Sorin Carpio MD [address] [facility] [address] [place] [phone] documented as of this encounter Visit Diagnoses Not on filedocumented in this encounter Care Teams Demolition Expert Relationship Specialty Start Date End Date Ellen Yan MD [address] [place] [address] PCP - General Internal Medicine 12/03/20 documented as of this encounter
--- OUTSIDE RECORDS SUMMARY | 2024-12-08 11:45 | XMS_ITS | Encounter Summary ---
Author Organization [facility] Address [address] [facility] [address] [place] [address] Phone Care Team Providers Care Guitar Maker Name Role Phone Ellen Yan MD Primary Care Provider [phone]- [phone] Encounter Details Date Type Department Care Team ([facility] Contact Info) Description 04/24/2021 Documentation Only [facility] [address] [facility] [address] [place] [address] Meena Kemp [place] Social History [...] Upcoming Encounters Date Type Department Care Team ([facility] Contact Info) Description 01/05/2025 1:15 PM EDT Office Visit [facility] [address] [place] [address] Sorin Carpio MD [address] [facility] [address] [place] [address] documented as of this encounter [...] U/L Total Bilirubin 0.3 MG/DL eGFR Non-Afr Guinean 35 Total Protein, Serum 6.2 Blood 04/09/2021 [...] on filedocumented in this encounter Care Teams Guitar Maker Relationship Specialty Start Date End Date Ellen Yan MD [facility] [place] [address] PCP - General Internal Medicine 12/03/20 documented as of this encounter
--- OUTSIDE RECORDS SUMMARY | 2024-12-08 11:45 | XMS_ITS | Patient Health Record ---
Author Organization [facility] Address [address] [place] [address] Care Team Providers Care Trench Shovel Operator Name Role Phone Yuriy GARCIA, Lyndsay Primary Care Provider Bang Moore Unavailable [phone] ALLERGIES Allergen (clinical drug ingredient) Drug/Non Drug [...] Problem Epigastric abdominal pain (R10.13) Active confirmed 27628841 Problem History of adenomatous polyp of colon (Z86.010) Active confirmed 505555095 Problem Diarrhea (R19.7) Active confirmed Diarr hea (47540134) Problem Change in bowel habit (R19.4) Active confirmed Change in malu l habit (87258947) Problem Calculus of gallbladder without cholecystitis without obstruction (K80.20) Active confirmed 01332940 Problem Gastroesophageal reflux disease without esophagitis (K21.9) Active confirmed 443932226 Problem Diarrhea, unspecified type (R19.7) Active confirmed 41861287 Problem RUQ abdominal pain (R10.11) Active confirmed 767083984 Problem RUQ pain (R10.11) Active confirmed 3017 75887 Problem Left renal mass (N28.89) Active confirmed 401917782 Problem Abnormal ultrasound of left kidney (R93.422) Active confirmed [id number] PLAN OF TREATMENT Pending Test Test Name [...] 01/12/2025 10:40:00 AM, [address] [facility], [address], [place], [address], Insurance Providers Payer Name Payer Address Payer Phone Subscriber Number Group Number Insured Name Patient Relationship to Insured Coverage Start Date Coverage End Date [employer] [address] [place] [phone] [id number] CHANTELLE FRIEDMAN Self - patient is the insured MEDICAL (GENERAL) HISTORY Medical History History ICD Code IDDM Elevated Cholesterol Hypertension Rheumatoid arthritis Urinary incontinence- mild GERD-neg EGD in 2000 Neg. colonoscopy in 2000 and 08/2010 Denies [place],CVA,Lung disease,renal disease Bronchitis Edema of ankles Colonoscopy in 11/2019 with a single tubular adenoma removed; no colitis, biopsies neg for microscopic colitis Neg. celiac disease labs in 2018 Surgical History Surgery Date(Month/Year) Back surgery Cataract removal Tonsillectomy [facility] by Dr Dickson 10/2019
== END 2024-12-08 10:38 | disposition home or self-care (01) ==
PROVIDERS: PCP Internal Medicine; Visit Provider Nurse Practitioner Family
DX: Z13.9 Encounter for screening, unspecified (principal); C64.9 Malignant neoplasm of unspecified kidney, except renal pelvis
CPT/HCPCS: 99213; G2211

== ENCOUNTER → 2024-12-08 10:10 | Outpatient (BNVA) | payer MEDICARE, SELFPAY | PROVIDERS: PCP Internal Medicine; Visit Provider Nurse Practitioner Family | DX: C64.9 Malignant neoplasm of unspecified kidney, except renal pelvis (principal) | CPT/HCPCS: 81003; 99212 ==

== ENCOUNTER 2024-12-14 10:20 | Outpatient (REF) | payer MEDICARE, SELFPAY ==
--- NOTE | ~2024-12-14 | CT_ITS ---
CLINICAL HISTORY: C64.9 - Malignant neoplasm of unspecified kidney, except renal pelvis CT chest without contrast Comparison: US - US RENAL BI - 11/14/24 09:[address]/LA/SR - CT CHEST WO IV CON - 06/14/24 10:[address]/LA/SR - CT CHEST W IV CON - 12/01/23 10:32 EST Findings: No mediastinal mass or lymphadenopathy. No cardiomegaly. Severe calcified coronary artery disease. Mild calcification of the aortic valve. Severe calcification of the mitral annulus. No aortic aneurysm. Severe calcified atherosclerotic disease. 7 mm nodule in the right upper lobe just superior to right minor fissure, unchanged. Other pulmonary nodules measure up to 3 mm, stable. Calcified granuloma. No pneumothorax or pleural effusion. No acute osseous or soft tissue abnormality. No acute pathology in the imaged portion of the upper abdomen. Status post cholecystectomy. Postoperative change in the upper pole of the left kidney, unchanged. A correlate for the mass seen on the recent ultrasound is not identified although the kidneys are incompletely imaged. Impression: Stable pulmonary nodules measuring up to 7 mm. Follow up as clinically indicated. This document has been electronically signed by: Dena Mcdaniels MD on 12/14/2024 22:21:02
--- OUTSIDE RECORDS SUMMARY | 2024-12-14 12:09 | XMS_ITS | Encounter Summary ---
Author Organization [facility] Address [address] [place] [address] Phone Care Team Providers Care Specialized Developer Name Role Phone Ellen Yan MD Primary Care Provider [phone]- [phone] Encounter Details Date Type Department Care Team (Late st Contact Info) Description 04/01/2022 Telephone [facility] [address] [place] [address] Jim Santiago MD [address] [place] [phone] Social History Tobacco Use Types Packs/Day Years [...] over the weekend. Pls call her at [phone] * Telephone Encounter - Kassi Sotelo - 04/01/2022 10:50 AM EDT Pt called, her insurance will not cover the script for joaquín. It needs a PA please advise Thank you documented in this encounter Plan of Treatment Upcoming Encounters Date Type Department Care Team (Late st Contact Info) Description 01/05/2025 1:15 PM EDT Office Visit [facility] [address] [place] [address] Sorin Carpio MD [address] [facility] [address] [place] [phone] documented as of this encounter Visit Diagnoses Not on filedocumented in this encounter Care Teams Specialized Developer Relationship Specialty Start Date End Date Ellen Yan MD [address] [place] [address] PCP - General Internal Medicine 12/03/20 documented as of this encounter
--- OUTSIDE RECORDS SUMMARY | 2024-12-14 12:09 | XMS_ITS | Patient Health Record ---
Author Organization [facility] Address [address] [place] [address] Care Team Providers Care Scribing Machine Operator Name Role Phone Yuriy GARCIA, Lyndsay Primary Care Provider Bang Moore Unavailable [phone] Allergies Allergen (clinical drug ingredient) Drug/Non Drug Allergy documented on EMR Reaction Allergy Type Onset Date Status semaglutide Ozempic Unknown Drug Allergy Activ e codeine Codeine Sulfate Unknown Drug Allergy A ctive Reason For Referral No Information Medications Medication SIG (Take, Route, Frequency, Duration) Notes [...] Orally every 6 hrs as needed Active Immunizations Vaccine Route Administration Date Status Comme nts Influenza Unknown 07/12/2019 Administered Influenza Unknown 07/29/2022 Administered Social History Tobacco Use: Social History Observation Description Date Details (start date - stop date) Former Smoker NA - NA Tobacco Use/Smoking Question Answer Notes Patient is a former smoker When did you stop smoking? over 30 years ago How long has it been since you last smoked? > 10 years Alcohol Screen Question Answer Notes Did you have a drink containing alcohol in the p ast year? No Points 0 Interpretation Negative Section Notes: Nonsmoker; no alcohol Nonsmoker; no alcohol Nonsmoker; no alcohol Problems Problem Type SNOMED Code ICD Code Onset Dates Problem Status W/U Status Risk Notes Problem 50045886 Epigastric abdominal pain (R10.13) Active confirmed Problem 434593355 History of adenomatous polyp of colon (Z86.010) Active confirmed Problem Diarrhea (05608093) Diarrhea (R19.7) Active con firmed Problem Change in bowel habit (86049953) Change in bowel habit (R19.4) Active confirmed Problem 66810006 Calculus of gallbladder without cholecystitis without obstruction (K80.20) Active confirmed Problem 778201057 Gastroesophageal reflux disease without esophagitis (K21.9) Active confirmed Problem 81125128 Diarrhea, unspecified type (R19.7) Active confirmed Problem 295795965 RUQ abdominal pa in (R10.11) Active confirmed Problem 430052987 RUQ pain (R10.11) Active confirmed Problem 609487461 Left renal mass (N28.89) Active confirmed Problem 25102567298982749 Abnormal ultrasound of left kidney (R93.422) Active confirmed Plan Of Treatment Pending Test Test Name Order Date BUN 04/05/2023 LIVER PROFILE 03/24/2023 CBC w DIFF 09/02/2019 CBC w DIFF 04/05/2023 CBC w DIFF 03/24/2023 CT ABD & PELVIS WWO CONTRAST 04/05/2023 Electrolytes 04/05/2023 Creatinine 04/05/2023 CT abdomen pelvis wo/w con 04/15/2023 US abdomen complete 03/24/2023 Future Test Test Name Order Date COLONOSCOPY 09/02/2019 Next Appt Details Provider Name:Bang Little , 01/12/2025 10:40:00 AM, [address] [place] [address], [address], [place], [address], Insurance Providers Payer Name Payer Address Payer Phone Subscriber Number Group Number Insured Name Patient Relationship to Insured Coverage Start Date Coverage End Date [employer] [address] [place] [phone] [id number] CHANTELLE FRIEDMAN Self - patient is the insured Medical (General) History Medical History History ICD Code IDDM Elevated Cholesterol Hypertension Rheumatoid arthritis Urinary incontinence- mild GERD-neg EGD in 2000 Neg. colonoscopy in 2000 and 08/2010 Denies [place],CVA,Lung disease,renal disease Bronchitis Edema of ankles Colonoscopy in 11/2019 with a single tubular adenoma removed; no colitis, biopsies neg for microscopic colitis Neg. celiac disease labs in 2018 Surgical History Surgery Date(Month/Year) Back surgery Cataract removal Tonsillectomy CCY by Dr Dickson 10/2019
--- OUTSIDE RECORDS SUMMARY | 2024-12-14 12:09 | XMS_ITS | Encounter Summary ---
Author Organization [facility] Address [address] [facility] [address] [place] [address] Phone Care Team Providers Care Hide Tanner Name Role Phone Ellen Yan MD Primary Care Provider +1- [phone] Encounter Details Date Type Department Care Team ([facility] Contact Info) Description 04/24/2021 Documentation Only [facility] [address] [facility] [address] [place] [address] Meena Kemp MA Social History [...] Upcoming Encounters Date Type Department Care Team ([facility] Contact Info) Description 01/05/2025 1:15 PM EDT Office Visit [facility] [address] [place] [address] Sorin Carpio MD [address] [facility] 204 [place] [address] documented as of this encounter [...] U/L Total Bilirubin 0.3 MG/DL eGFR Non-Afr [place] 35 Total Protein, Serum 6.2 Blood 04/09/2021 [...] on filedocumented in this encounter Care Teams Hide Tanner Relationship Specialty Start Date End Date Ellen Yan MD [facility] [place] [place] [address] PCP - General Internal Medicine 12/03/20 documented as of this encounter
--- OUTSIDE RECORDS SUMMARY | 2024-12-14 12:09 | XMS_ITS | Clinical Summary ---
Author Organization [facility] Address [address] [facility] [address] [place] [address] Phone Care Team Providers Care Fondant Puff Maker Name Role Phone Ellen Yan MD Primary Care Provider +1- [phone] Allergies Active Allergy Reactions Criticality Noted Date [...] Visit [facility] [address] [place] [address] Sorin Carpio MD [address]86 [facility] 204 [place] [phone] Health Maintenance Due Date Last Done Comments [...] AM EDT) Hemoglobin A1C 7.2(H) (4.0-5.6) % [facility] Comment: MONITORING: In known diabetic patients, hemoglobin A1c targets should be discussed with health care provider. DIAGNOSTIC USE: ??The [place] Diabetes Association (ADA) and the World Health [...] Supplement 1 Testing performed or reported by [facility], a Service of [facility], [address] [place] [address] Lamont Ortega MD, Top Collar Baster [facility]# [id number] Blood (Blood, Venous) 02/04/2023 10:21 AM EDT 02/04/2023 10:34 AM EDT Jim Santiago MD LAB BLOOD ORDERABLES Final Re sult [facility] from Last 3 Months or Most Recently Relevant to Health Maintenance Insurance [employer] Care Teams Fondant Puff Maker Relationship Specialty Start Date End Date Ellen Yan MD [address] [facility] [place] [address] PCP - General Internal Medicine 12/03/20
== END 2024-12-14 10:21 | disposition home or self-care (01) ==
LOC: HO.CT 10:20
PROVIDERS: PCP Internal Medicine; Visit Provider Hospitalist
DX: C64.9 Malignant neoplasm of unspecified kidney, except renal pelvis (principal); R91.1 Solitary pulmonary nodule
CPT/HCPCS: 71250

== ENCOUNTER → 2024-12-14 10:22 | Outpatient (BNV) | payer MEDICARE, SELFPAY | PROVIDERS: PCP Internal Medicine; Visit Provider Radiology Diagnostic Radiology | DX: R91.1 Solitary pulmonary nodule (principal) | CPT/HCPCS: 71250 ==

== ENCOUNTER 2024-12-27 09:20 | Outpatient (REF) | payer MEDICARE, SELFPAY ==
[2024-12-27 13:02] LABS: MANUAL DIFF FLAG NO
[2024-12-27 13:25] LABS: Basophils Absolute Auto 0.1 X10*3/uL (0.0-0.2); Basophils Percent Auto 0.9 % (0-2); Eosinophils Absolute Auto 0.3 X10*3/uL (0.0-0.4); Hematocrit 38.6 % (37.0-47.0); Hemoglobin 12.5 g/dl (12.0-16.0); Imm Gran Abs Auto 0.08 X10*3/uL (0.00-0.03); Lymphocytes Absolute Auto 1.5 X10*3/uL (1.2-4.9); Mean Corpuscular HGB Conc 32.4 g/dl (31.0-35.0); Mean Corpuscular Hemoglobin 28.4 pg (27.0-33.0); Mean Corpuscular Volume 87.7 fL (80.0-98.0); Mean Platelet Volume 10.5 fL (9.4-12.3); Monocytes Absolute Auto 0.8 X10*3/uL (0.1-1.2); Neutrophils Percent Auto 65.1 % (45-73); Platelet Count 295 X10*3/uL (160-400); Red Cell Distribution Width 14.6 % (11.0-16.0); White Blood Count 7.7 X10*3/uL (4.8-10.8)
[2024-12-27 13:47] LABS: Alanine Aminotransferase 17 U/L (0-31); Alkaline Phosphatase 76 U/L (39-117); Anion Gap 14 (12-20); Aspartate Amino Transferase 27 U/L (5-31); Bilirubin Total 0.4 mg/dL (0.0-1.0); Blood Urea Nitrogen 42 mg/dL (9-16); C Reactive Protein 1.04 mg/dL (< or = 0.50); Calcium 9.5 mg/dL (8.4-10.2); Carbon Dioxide 25 mmol/L (22-29); Chloride 109 mmol/L (96-108); Estimated Glomerular Filt Rate 38; Glucose Random 98 mg/dL (60-115); Potassium 4.7 mmol/L (3.3-5.1); Sodium 143 mmol/L (135-145); Total Protein 7.5 g/dL (6.5-8.0)
[2024-12-27 13:53] LABS: HBS Num1 0.05 mIU/mL (0-7.99); HBc Num1 0.09 S/CO (0.00-0.79); HBsAGNum1 0.29 S/CO (0.00-0.99); Hepatitis A Antibody IgM 0.45 Index (0-0.79); Hepatitis B Core Antibody Nonreactive (Nonreactive); Hepatitis B Surface Antigen Negative (Negative); ~HepC Num1 0.08 S/CO (0.00-0.79); ~Hepatitis A Antibody IgM Nonreactive (Nonreactive); ~Hepatitis B Surface Antibody NONREACTIVE (Nonreactive); ~Hepatitis C Antibody Nonreactive (Nonreactive)
[2024-12-27 14:07] LABS: Erythrocyte Sedimentation Rate 41 MM/HR (0-20)
[2024-12-30 06:19] LABS: TS Negative Control Passed; TS Panel A 3; TS Panel B 4; TS Positive Control Passed; TSpotTB Negative (Negative)
== END 2024-12-27 09:21 | disposition home or self-care (01) ==
LOC: HO.HMGCLDS 09:20
PROVIDERS: PCP Internal Medicine; Visit Provider Student in an Organized Health Care Education/Training Program
DX: M05.9 Rheumatoid arthritis with rheumatoid factor, unspecified (principal); Z79.620 Long term (current) use of immunosuppressive biologic; Z11.59 Encounter for screening for other viral diseases; Z72.89 Other problems related to lifestyle
CPT/HCPCS: 36415; 80053; 85025; 85652; 86140; 86481; 86704; 86706; 86709; 86803; 87340

== ENCOUNTER 2024-12-28 09:59 | Outpatient (AMB) | payer MEDICARE, SELFPAY ==
[2024-12-28 10:10] VITALS: BP 154/70; PULSE 74; O2SAT 96; BMI 42.3
--- NOTE | 2024-12-28 10:10 | A.OFFVIS_ITS ---
Vital Signs 12/28/24 10:10 Height 5 ft 2 in Weight 231 lb 7.766 oz BMI 42.3 BP 154/70 H Blood Pressure Location Lt brachial Position Sitting Pulse 74 Pulse Source Pulse Oximeter Pulse Oximetry (%) 96 Oxygen Delivery Method Room Air Intake Visit Reasons: Pulmonary nodule Allergies codeine [Codeine] Allergy (Severe, Verified 12/28/24 10:13) DIFFICULTY BREATHING Penicillins Adverse Reaction (Intermediate, Verified 12/28/24 10:13) stomach upset semaglutide [From Ozempic] Adverse Reaction (Verified 12/28/24 10:13) Vomiting HPI Comments Details: Paola is a pleseant 74 year old female patient of Dr. Yan. She has a [facility] CKD stage 3, diabetic retinopathy, dyslipidemia, essential hypertenstion, IDDM, obesity, osteopenia, postlaminectomy syndrome, spinal stenosis of lumbar region with radiculopathy, and spondylosis of lumbar spine. She presents to the office today for follow-up of her clear cell renal cell carcinoma. Patient is status post renal biopsy and cryoablation on 05/27/23. Of note during last office visit renal ultrasound was ordered for surveillance monitoring that noted highly worrisome mass upper pole left kidney for which dictated renal protocol was suggested therefore repeat MRI renal mass protocol was ordered and performed. These results were communicated with the patient today. 12/06 3 x 4 cm ablation zone adjacent to the left upper pole of the left kidney corresponding to the abnormality seen on ultrasound. No enhancing mass is identified. 1.8 cm proteinaceous cyst at the lower pole of the right kidney. These images were also reviewed with Dr. Lassiter. She continues to follow-up with Dr. Whittington for surveillance monitoring as well. She also reports following up with nephrology and endocrinology for question of hyper/hypo vitamin-D. She also continues to follow-up with oncology and her PCP. She currently denies any bothersome urinary issues or concerns. In office urinalysis results reviewed with the patient today. Patient with PT1A renal cell carcinoma [place] grade 3. When asked she denies urinary urgency, urinary frequency, incontinence, nocturia, hematuria, dysuria, foul smelling urine, changes to urinary stream, flank pain, fever, and or chills. She is happy with her current voiding parameters. She otherwise offers no issues or concerns at this time. 12/28/2024 the patient is here for a pulmonary follow-up visit. Overall she is doing well. Denies any shortness of breath. Though she did developing worsening cough. She feels like she has some bronchitis. She is starting to become more congested with some phlegm. It is a tends yellow. She says that she has bronchitis a lot. Explained to her that she may have a component of chronic bronchitis. She does have a rescue inhaler. I do believe that she will do better with a maintenance inhaler. Therefore I will send her Breztri to the pharmacy. In the meantime the patient did have a CT scan of the chest I personally reviewed. Her pulmonary nodule measuring 7 mm in size in the right hemithorax appears to be stable when compared to her last 1. Still with a history renal cell carcinoma this is something that needs to be monitor closely so therefore follow-up in 6 months with a repeat [address] scan. She also had an MRI of the abdomen and apparently she also have another MRI in 6 months. She does have some changes there but are likely due to the actual ablation. [facility] Medical History (Updated 12/28/24 @ 21:46 by Ted Whittington MD) Chronic bronchitis Adalimumab (Humira) long-term use Osteoarthritis of left knee Hyperparathyroid bone disease Hypogammaglobulinemia Trochanteric bursitis of both hips Leg pain, bilateral Herpes zoster vaccination declined COVID-19 vaccine dose declined Diabetic retinopathy Tubular adenoma of colon Osteopenia History of severe acute respiratory syndrome coronavirus 2 (SARS-CoV-2) disease Obesity due to excess calories 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 Postlaminectomy syndrome MGUS (monoclonal gammopathy of unknown significance) 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 mellitus) Diabetic retinopathy associated with type 2 diabetes mellitus CKD (chronic kidney disease) stage 3, GFR 30-59 ml/min assisted (current) use of insulin GERD (gastroesophageal reflux disease) Type 2 diabetes mellitus with diabetic polyneuropathy Essential hypertension Dyslipidemia Surgical History Hx of colonoscopy Hx laparoscopic cholecystectomy Hx of tonsillectomy Hx of cataract surgery History of back surgery Family History Mother Diabetes CVD (cardiovascular disease) HTN (hypertension) Father Hodgkin disease Brother Hodgkin disease Sister Pancreatic cancer Sister Lung cancer Non-Hodgkin lymphoma Paternal Uncle Colon cancer Social History Household Members: None Housing: Condominium Alcohol intake: never Patient Tobacco Use Status: Former Tobacco user Tobacco use type: Cigarette Cigarettes Per Day: 50 Years Smoked: 20 e-Cigarette/Vaping Use: Never Used Advance Directives Date on File: 02/08/22 service: No Current occupational status: retired Cognitive needs: No Hearing needs: No Vision needs: Yes Review of Systems Const Reports no additional complaints Eyes Reports no additional complaints ENT Reports as per HPI, Denies vertigo, Denies dizziness, Denies otalgia, Denies nasal discharge, Reports post nasal drip and Denies sore throat Card Reports no additional complaints Resp Reports no additional complaints GI Reports no additional complaints Reports no additional complaints Musc Reports no additional complaints Skin/Breast Denies rash Neuro Reports no additional complaints, Denies vertigo and Denies dizziness Psych Reports no additional complaints Endo Reports no additional complaints Eduardo/Lymph Reports no additional complaints Aller/Immun Reports no additional complaints Physical Exam Vital Signs: Last Vital Signs Pulse 74 12/28/24 10:10 BP 154/70 H 12/28/24 10:10 Pulse Ox 96 12/28/24 10:10 Oxygen Delivery Method Room Air 12/28/24 10:10 BMI result Body Mass Index 42.3 Const General: comfortable HEENT Head: Yes normocephalic Neck Neck: Yes supple Chest Chest palpation & inspection: normal inspection of the chest Resp Effort & Inspection: normal respiratory effort Auscultation: clear to auscultation bilaterally Cardio Heart sounds: S1 normal heart sound present and S2 normal heart sound present GI Palpation (GI): Soft to palpation Skin General skin exam: no rashes or lesions noted Extrem General: Yes no clubbing, cyanosis or edema Assessment & Plan Assessment & Plan (1) Pulmonary nodule: Code(s): R91.1 - Solitary pulmonary nodule Category: Medical (2) Clear cell renal cell carcinoma: Comment: Mass was treated with ablative procedure May 2023 Code(s): C64.9 - Malignant neoplasm of unspecified kidney, except renal pelvis Category: Medical (3) Chronic bronchitis: Code(s): J42 - Unspecified chronic bronchitis Category: Medical Qualifiers: Chronic bronchitis type: mixed simple and mucopurulent Qualified Code(s): J41.8 - Mixed simple and mucopurulent chronic bronchitis Plan Will repeat CT chest in 6 months Zpack for bronchitis start Breztri EILEEN as needed F/U in 6 months Orders: Orders CT chest wo IV con Today R91.1 - Solitary pulmonary nodule Medications: New azithromycin 500 mg PO DAILY 5 days 5 tabs 0RF [id number]-avnmzmwq-vzxorgndpn 160-9-4.8 mcg/actuation (Breztri Aerosphere) 2 inhalations inhalation BID 30 days 10.7 grams 3RF Coding Level of Care Code Est Pt Level 4 (40690) Diagnoses Pulmonary nodule R91.1 Clear cell renal cell carcinoma C64.9 Mixed simple and mucopurulent chronic bronchitis J41.8 Chronic bronchitis type: mixed simple and mucopurulent Time Spent (min) 17
--- OUTSIDE RECORDS SUMMARY | 2024-12-28 11:28 | XMS_ITS | Encounter Summary ---
Author Organization [facility] Address [address] [place] [address] Phone Care Team Providers Care Cost Recovery Technician Name Role Phone Ellen Yan MD Primary Care Provider +1- [phone] Encounter Details Date Type Department Care Team (Late st Contact Info) Description 04/01/2022 Telephone [facility] [address] [place] [address] Jim Santiago MD [address] [place] [address] Social History Tobacco Use Types Packs/Day Years [...] over the weekend. Pls call her at [phone] * Telephone Encounter - Kassi Sotelo - 04/01/2022 10:50 AM EDT Pt called, her insurance will not cover the script for joaquín. It needs a PA please advise Thank you documented in this encounter Plan of Treatment Upcoming Encounters Date Type Department Care Team (Late st Contact Info) Description 01/05/2025 1:15 PM EDT Office [facility] [address] [place] [address] Sorin Carpio MD [address] [address] 01/19/2025 Orders Only [facility] [address] [place] [phone] Sorin Carpio MD [address] [address] Stage 3 chronic kidney disease, not otherwise specified (HCC) documented as of this encounter Visit Diagnoses Not on filedocumented in this encounter Care Teams Cost Recovery Technician Relationship Specialty Start Date End Date Ellen Yan MD [address] [place] [address] PCP - General Internal Medicine 12/03/20 documented as of this encounter
--- OUTSIDE RECORDS SUMMARY | 2024-12-28 11:28 | XMS_ITS | Patient Health Record ---
Author Organization [facility] Address [address] [place] [address] Care Team Providers Care Transmitter Operator Name Role Phone Yuriy GARCIA, Lyndsay Primary Care Provider Bang Moore Unavailable [phone] Allergies Allergen (clinical drug ingredient) Drug/Non Drug [...] Problem Status W/U Status Risk Notes Problem 98164548 Epigastric abdominal pain (R10.13) Active confirmed Problem 061352244 History of adenomatous polyp of colon (Z86.010) Active confirmed Problem Diarrhea (16009354) Diarrhea (R19.7) Active con firmed Problem Change in bowel habit (44209619) Change in bowel habit (R19.4) Active confirmed Problem 82552165 Calculus of gallbladder without cholecystitis without obstruction (K80.20) Active confirmed Problem 671300665 Gastroesophageal reflux disease without esophagitis (K21.9) Active confirmed Problem 67648595 Diarrhea, unspecified type (R19.7) Active confirmed Problem 889485477 RUQ abdominal pa in (R10.11) Active confirmed Problem 225670956 RUQ pain (R10.11) Active confirmed Problem 611894676 Left renal mass (N28.89) Active confirmed Problem 88911878649426599 Abnormal ultrasound of left kidney (R93.422) Active [...] Provider Name:Bang Little , 01/12/2025 10:40:00 AM, [address] [place] [address], [address], [place], [address], Insurance Providers Payer Name Payer Address Payer Phone Subscriber Number Group Number Insured Name Patient Relationship to Insured Coverage Start Date Coverage End Date [employer] [address] [place] [phone] [id number] CHANTELLE FRIEDMAN Self - patient is the insured Medical (General) History Medical History History ICD Code IDDM Elevated Cholesterol Hypertension Rheumatoid arthritis Urinary incontinence- mild GERD-neg EGD in 2000 Neg. colonoscopy in 2000 and 08/2010 Denies [place],CVA,Lung disease,renal disease Bronchitis Edema of ankles Colonoscopy in 11/2019 with a single tubular adenoma removed; no colitis, biopsies neg for microscopic colitis Neg. celiac disease labs in 2018 Surgical History Surgery Date(Month/Year) Back surgery Cataract removal Tonsillectomy CCY by Dr Dickson 10/2019
--- OUTSIDE RECORDS SUMMARY | 2024-12-28 11:28 | XMS_ITS | Clinical Summary ---
Author Organization [facility] Address 100 [facility] [address] [place] [address] Phone Care Team Providers Care Engineer And Geologist Name Role Phone Ellen Yan MD Primary Care Provider +1- [phone] Allergies Active Allergy Reactions Criticality Noted Date [...] Date Ultrasonography of left kidney abnormal 01/13/20 24 Renal mass 01/13/2024 Hypertension 01/24/2021 Type 2 [...] Visit [facility] [address] [place] [address] Sorin Carpio MD 9[address] [facility] 204 [place] [address] 01/19/2025 Orders Only [facility] [address] [place] [phone] Sorin Carpio MD 6[address] [facility] [address] [place] [address] Stage 3 chronic kidney disease, not otherwise specified (HCC) Health Maintenance Due Date Last Done Comments [...] AM EDT) Hemoglobin A1C 7.2(H) (4.0-5.6) % [facility] [facility] [facility] Comment: MONITORING: In known diabetic patients, hemoglobin A1c targets should be discussed with health care provider. DIAGNOSTIC USE: ??The [place] Diabetes Association (ADA) and the World Health [...] Supplement 1 Testing performed or reported by [facility], a Service of [facility], [address] [place] [address] Lamont Ortega MD, Wellness Educator [facility]# [id number] Blood (Blood, Venous) 02/04/2023 10:21 AM EDT 02/04/2023 10:34 AM EDT us Jim Santiago MD LAB BLOOD ORDERABLES Final Re sult [employer] from Last 3 Months or Most Recently Relevant to Health Maintenance Insurance [place] [id number] [place] Care Teams Engineer And Geologist Relationship Specialty Start Date End Date Ellen Yan MD [address] [place] [address] PCP - General Internal Medicine 12/03/20
--- OUTSIDE RECORDS SUMMARY | 2024-12-28 11:28 | XMS_ITS | Encounter Summary ---
Author Organization [facility] Address [address] [facility] [address] [place] [address] Phone Care Team Providers Care Kettle Fry Cook Operator Name Role Phone Ellen Yan MD Primary Care Provider +1- [phone] Encounter Details Date Type Department Care Team ([facility] Contact Info) Description 04/24/2021 Documentation Only [facility] [address] [facility] [address] [place] [address] Meena Kemp MA Social History Tobacco [...] Upcoming Encounters Date Type Department Care Team ([facility] Contact Info) Description 01/05/2025 1:15 PM EDT Office Visit [facility] [address] [place] [address] Sorin Carpio MD 97[address] [facility] [address] [place] [address] 01/19/2025 Orders Only [facility] [address] [place] [address] Sorin Carpio MD 40[address] [facility] [address] [place] [address] Stage 3 chronic kidney disease, not otherwise specified (HCC) documented as of this encounter Procedures Procedure [...] U/L Total Bilirubin 0.3 MG/DL eGFR Non-Afr [place] 35 Total Protein, Serum 6.2 Blood 04/09/2021 Historical Provider LAB BLOOD ORDERABLES Sidra l Result * CBC (Includes Diff/Plt) (External Lab) (04/09/2021) WBC 12.2 K/uL Red Blood Cell Count 4.17 Hemoglobin 11.8 g/dL Hematocrit 38.5 % MCV 92.3 MCH 28.3 MCHC 30.6 RDW 14.1 Platelet Count 312 MPV 11.1 Blood 04/09/2021 Historical Provider LAB BLOOD ORDERABLES Sidra l Result documented in this encounter Visit Diagnoses Not on filedocumented in this encounter Care Teams Kettle Fry Cook Operator Relationship Specialty Start Date End Date Ellen Yan MD [facility] [place] [address] PCP - General Internal Medicine 12/03/20 documented as of this encounter
== END 2024-12-28 10:45 | disposition home or self-care (01) ==
LOC: HO.HPS 10:00
PROVIDERS: PCP Internal Medicine; Visit Provider Hospitalist
DX: R91.1 Solitary pulmonary nodule (principal); C64.9 Malignant neoplasm of unspecified kidney, except renal pelvis; J41.8 Mixed simple and mucopurulent chronic bronchitis
CPT/HCPCS: 99214

== ENCOUNTER → 2024-12-28 09:59 | Outpatient (BNVA) | payer MEDICARE, SELFPAY | PROVIDERS: PCP Internal Medicine; Visit Provider Hospitalist | DX: R91.1 Solitary pulmonary nodule (principal); J41.8 Mixed simple and mucopurulent chronic bronchitis; C64.9 Malignant neoplasm of unspecified kidney, except renal pelvis | CPT/HCPCS: 99212 ==

== ENCOUNTER 2025-01-11 11:25 | Outpatient (AMB) | payer MEDICARE, SELFPAY ==
--- NOTE | 2025-01-11 11:31 | A.OFFVIS_ITS ---
Vital Signs 01/11/25 11:34 Height 5 ft 2 in Weight 230 lb 2.601 oz BMI 42.1 BP 160/72 H Blood Pressure Location Lt brachial Position Sitting Pulse 72 Pulse Source Pulse Oximeter Pulse Oximetry (%) 98 Oxygen Delivery Method Room Air Intake Visit Reasons: RA Intake Note: Patient presents for RA. 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 Interval History: Last seen 10/13/2024 by me. At that time patient is rheumatoid arthritis was stable, no changes made to medications. Clear cell carcinoma of the kidney status post ablative surgical therapy. With improvement. Improvement in her hip bursitis after bilateral corticosteroid injection. Today, Patient is here for her first Euflexxa injection Rheumatologic History: Diagnosed with rheumatoid arthritis more than 10 years ago. Currently on Humira and leflunomide. Currently in remission Medication History: Humira 40 mg every other week subQ Leflunomide 10 mg every day [facility] Medical History (Updated 12/28/24 @ 21:46 by Ted Whittington MD) Chronic bronchitis Adalimumab (Humira) long-term use Osteoarthritis of left knee Hyperparathyroid bone disease Hypogammaglobulinemia Trochanteric bursitis of both hips Leg pain, bilateral Herpes zoster vaccination declined COVID-19 vaccine dose declined Diabetic retinopathy Tubular adenoma of colon Osteopenia History of severe acute respiratory syndrome coronavirus 2 (SARS-CoV-2) disease Obesity due to excess calories 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 Postlaminectomy syndrome MGUS (monoclonal gammopathy of unknown significance) 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 mellitus) Diabetic retinopathy associated with type 2 diabetes mellitus CKD (chronic kidney disease) stage 3, GFR 30-59 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 GERD (gastroesophageal reflux disease) Type 2 diabetes mellitus with diabetic polyneuropathy Essential hypertension Dyslipidemia Surgical History Hx of colonoscopy Hx laparoscopic cholecystectomy Hx of tonsillectomy Hx of cataract surgery History of back surgery Family History Mother Diabetes CVD (cardiovascular disease) HTN (hypertension) Father Hodgkin disease Brother Hodgkin disease Sister Pancreatic cancer Sister Lung cancer Non-Hodgkin lymphoma Paternal Uncle Colon cancer Social History Household Members: None Housing: Condominium Alcohol intake: never Patient Tobacco Use Status: Former Tobacco user Tobacco use type: Cigarette Cigarettes Per Day: 50 Years Smoked: 20 e-Cigarette/Vaping Use: Never Used Advance Directives Date on File: 02/08/22 service: No Current occupational status: retired Cognitive needs: No Hearing needs: No Vision needs: Yes Review of Systems Const Details: Review of Systems Constitutional: Denies fever, chills, weight loss ENT: Denies vision changes, eye pain or eye redness, dental caries, dry mouth GI: Denies nausea, vomiting, diarrhea, abdominal pain, change in BM Pulm: Denies SOB, RODRIGUEZ, hemoptysis, wheezing Cards: Denies chest pain, palpitations Skin: Denies Raynaud's, rash, nail changes, photosensitivity, SOFTWARE INTEGRATION DEVELOPER: Denies headaches, weakness, paresthesias, recurrent falls MSK: Complains of joint pain and joint stiffness. Denies joint swelling, muscle weakness, bone pain. Left hip pain All other systems reviewed and are unremarkable except noted above Review of Symptoms Physical Exam Vital Signs: Last Vital Signs Pulse 72 01/11/25 11:34 BP 160/72 H 01/11/25 11:34 Pulse Ox 98 01/11/25 11:34 Oxygen Delivery Method Room Air 01/11/25 11:34 BMI result Body Mass Index 42.1 Physical Examination CONSTITUITIONAL Patient alert and cooperative. Well appearing and in no apparent painful distr ess HEENT Conjunctiva and sclera clear. ?Pupils equal round and reactive to light. ?No lymphadenopathy. ? CHEST/RESPIRATORY SYSTEM Normal respiratory effort and able to speak in complete sentences. ?Clear to auscultation bilaterally. ?No crackles, rales, rhonchi, wheezes heard. CARDIAC SYSTEM Regular rate and rhythm. ?S1 and S2 heard no murmurs. ?Radial pulses intact bilaterally MSK Hands: ?Good milking machine technician strength bilaterally. No deformities noted. ?No synovitis noted to the MCPs, PIPs or DIPs. ?No tenderness to palpation of these joints. Wrists: ?Full range of motion at the wrists without pain. ?No tenderness to palpation or synovitis noted to the wrists. Elbows: Full range of motion without pain. No tenderness, weakness, swelling, increased warmth or erythema. Shoulders: Full range of motion without pain. No tenderness, weakness, swelling, increased warmth or erythema. Hips: Full range of motion without pain. Hip bursa: No tenderness to palpation Knees: ?Full range of motion. ?No tenderness, swelling, increased warmth or erythema.? crepitations Ankles: Full range of motion. ?No tenderness, swelling, increased warmth or erythema.? Feet: ?Negative squeeze test. ?No tenderness to palpation or swelling of the MTPs. Tender points:?No tenderness to palpation of the bilateral trapezius, supraspinatus, greater trochanters, anterior costochondral junctions, bilateral gluteal areas, bilateral suboccipital muscle insertions SKIN Skin intact without rashes. Office Procedures AMB Joint Injection/Aspiration Joint Injection/Aspiration Details: Procedure was explained to the patient and consent was obtained. ? The area of interest was identified and confirmed with patient. ?This was subsequently cleaned with chlorhexidine x3. ? The area was then anesthetized using ethyl chloride spray. 2 cc Euflexxa was injected without issue. ?Minimal to no bleeding. ?Patient tolerated procedure. Primary Site: left knee Prep: site was prepped using aseptic technique and ethochloride spray was applied Injected: other (2 cc Euflexxa) Approach Used: anterior Procedure: The patient tolerated the procedure well Coding 88190 - Large joint Procedure code (CPT) selection complete AMB Joint Injection/Aspiration Joint Injection/Aspiration Details: Procedure was explained to the patient and consent was obtained. ? The area of interest was identified and confirmed with patient. ?This was subsequently cleaned with chlorhexidine x3. ? The area was then anesthetized using ethyl chloride spray. 2 cc Euflexxa was injected without issue. ?Minimal to no bleeding. ?Patient tolerated procedure. Primary Site: right knee Prep: site was prepped using aseptic technique and ethochloride spray was applied Injected: other (2 cc Euflexxa) Approach Used: anterior Procedure: The patient tolerated the procedure well Coding 58529 - Large joint Procedure code (CPT) selection complete Office Meds Euflexxa 10 mg/mL (mw 2.4-3.6 million) intra-articular syringe Performing Provider: Minal Chapman MD Performing Location: [facility] [place] Rheumatology Administered by: Minal Chapman MD on 01/11/25 12:47 Dose Route Admin Location Dispensed Lot Number Expiration Date [employer] 20 mg intra-articular Left knee 2 mL [id number] 09/24/25 [address]-1 [employer] Euflexxa 10 mg/mL (mw 2.4-3.6 million) intra-articular syringe Performing Provider: Minal Chapman MD Performing Location: [facility] [place] Rheumatology Administered by: Minal Chapman MD on 01/11/25 12:47 Dose Route Admin Location Dispensed Lot Number Expiration Date [employer] 20 mg intra-articular Right knee 2 mL [id number] 09/24/25 [address]-6 [employer] Results Reviewed Results Reviewed: Laboratory Tests 12/27/24 09:30 WBC 7.7 RBC 4.40 Hgb 12.5 Hct 38.6 Plt Count 295 ESR 41 H Sodium 143 Potassium 4.7 Chloride 109 H Carbon Dioxide 25 BUN 42 H Creatinine 1.37 Total Bilirubin 0.4 AST 27 ALT 17 Alkaline Phosphatase 76 C-Reactive Protein 1.04 H Left Knee XR 06/2021 FINDINGS: A single sunrise view left knee reveals loss of lateral compartment patellofemoral joint space with lateral patellar enthesophyte. No loose bodies or bony erosive changes seen. The soft tissues are normal. IMPRESSION: Mild degenerative changes lateral patellofemoral compartment with lateral patellar periarticular spurring. FINDINGS: 4 mm calcified density seen adjacent to the medial tibial spine has been present previously and appears to represent a loose body. Linear calcification is present about the anterior lateral soft tissues of the knee. There are vascular calcifications present. There is some calcification about the medial femoral condyle which may be related to previous medial collateral ligament injury. There is also some calcification about the lateral aspect of the patella which was not definitely seen previously and may be related to avulsion injury or spurring. No knee effusion is appreciated. There is mild narrowing of the medial joint space compartment. IMPRESSION: No effusion of the left knee identified. Findings of probable loose body and other changes of question medial collateral ligament injury and either spur or avulsion injury about the patella. Assessment & Plan Assessment & Plan (1) Primary osteoarthritis of both knees: Code(s): M17.0 - Bilateral primary osteoarthritis of knee Plan: #Bilateral Knee OA s/p Euflexxa x 1 RTC 1-2 weeks for 2nd dose (2) Seropositive rheumatoid arthritis: Code(s): M05.9 - Rheumatoid arthritis with rheumatoid factor, unspecified Category: Medical Plan: #Seropositive RA Patient with seropositive erosive rheumatoid arthritis. Currently in remission Plan - Humira 40mg SC every other week - Leflunomide 10mg daily (3) Osteopenia: Comment: DEXA 10/2022: AP Spine 2.8, Left femur neck -1.1, Left femur 0.9. FRAX 16.6%/2.5% Code(s): M85.80 - Other specified disorders of bone density and structure, unspecified site Category: Medical Qualifiers: Osteopenia location: femoral neck Laterality: left Qualified Code(s): M85.852 - Other specified disorders of bone density and structure, left thigh Plan: #Osteopenia Osteopenia of the left femoral neck based on DEXA. Encouraged vitamin-D and calcium supplementation. Weight-bearing exercises. Repeat DEXA in 2024 Plan - Vitamin D supplementation - Encourage daily Ca intake - Weight bearing exercises - DEXA ordered (4) Encounter for monitoring leflunomide therapy: Code(s): Z51.81 - Encounter for therapeutic drug level monitoring; Z79.69 - detention (current) use of other immunomodulators and immunosuppressants Plan: #Long-term leflunomide Discussed with patient the benefits and risks of leflunomide for managing the rheumatic condition Benefits include: - Reduced pain, maintenance of remission and reduction of flares Risks include: - GI upset especially diarrhea, skin rash, cytopenias, hepatotoxicity, weight loss, neuropathy Monitoring: ?CBC, BMP, LFTs, hepatitis B and C serologies (5) Long-term use of adalimumab: Code(s): Z79.620 - detention (current) use of immunosuppressive biologic Category: Medical Plan: #Long-term use of TNF Inhibitors Discussed with the patient the benefits and risks of TNF inhibitors for the management of the rheumatic condition Benefits include reduce pain, maintenance of remission and reduction of flares as well as progression of the disease Risks include injection sites/infusion reactions, serious infections (such as bacterial infections, opportunistic infections), malignancy, delaminating syndromes, autoimmune phenomena, CHF exacerbations, palmar plantar psoriasis and cytopenias Recommended rotating injection sites, and holding medication during and for up to 1 week after resolution of a febrile illness or open skin wound (6) detention use of drug: Code(s): Z79.899 - Other salvage determiner (current) drug therapy Category: Medical Plan: #Long-term leflunomide Discussed with patient the benefits and risks of leflunomide for managing the rheumatic condition Benefits include: - Reduced pain, maintenance of remission and reduction of flares Risks include: - GI upset especially diarrhea, skin rash, cytopenias, hepatotoxicity, weight loss, neuropathy Monitoring: ?CBC, BMP, LFTs, hepatitis B and C serologies Plan I spent 20 minutes reviewing the record and labs, seeing the patient, discussing the treatment plan and documenting in the medical record Orders: Orders AMB Joint Injection/Aspiration Today M17.0 - Bilateral primary osteoarthritis of knee XR DEXA axial skeleton Today M81.0 - Age-related osteoporosis without current pathological fracture AMB Joint Injection/Aspiration Today M17.0 - Bilateral primary osteoarthritis of knee Coding Level of Care Code Est Pt Level 3 (33138) Complex EM visit Add On G2211 Diagnoses Primary osteoarthritis of both knees M17.0 Seropositive rheumatoid arthritis M05.9 Osteopenia of neck of left femur M85.852 Osteopenia location: femoral neck Laterality: left Encounter for monitoring leflunomide therapy Z51.81; Z79.69 Long-term use of adalimumab Z79.620 buttermaker continuous churn use of drug Z79.899 CPT Codes Coding - 30577 Large joint: 88330 - Large joint ([id number]) Coding - 80949 Large joint: 26352 - Large joint ([id number])
[2025-01-11 11:34] VITALS: BP 160/72; PULSE 72; O2SAT 98; BMI 42.1
--- OUTSIDE RECORDS SUMMARY | 2025-01-11 13:58 | XMS_ITS | Patient Health Record ---
Author Organization [facility] Address [address] [place] [address] Care Team Providers Care Overhauler Bus Truck Name Role Phone Yuriy GARCIA, Lyndsay Primary Care Provider Bang Moore Unavailable [phone] Allergies Allergen (clinical drug ingredient) Drug/Non Drug [...] Problem Status W/U Status Risk Notes Problem 26026714 Epigastric abdominal pain (R10.13) Active confirmed Problem 392089846 History of adenomatous polyp of colon (Z86.010) Active confirmed Problem Diarrhea (72052496) Diarrhea (R19.7) Active con firmed Problem Change in bowel habit (39990161) Change in bowel habit (R19.4) Active confirmed Problem 81091968 Calculus of gallbladder without cholecystitis without obstruction (K80.20) Active confirmed Problem 308450397 Gastroesophageal reflux disease without esophagitis (K21.9) Active confirmed Problem 44582488 Diarrhea, unspecified type (R19.7) Active confirmed Problem 418314474 RUQ abdominal pa in (R10.11) Active confirmed Problem 976226850 RUQ pain (R10.11) Active confirmed Problem 261336632 Left renal mass (N28.89) Active confirmed Problem 92563204211896430 Abnormal ultrasound of left kidney (R93.422) Active [...] Provider Name:Bang Little , 01/12/2025 10:40:00 AM, [address] [place] [address], [address], [place], [address], Insurance Providers Payer Name Payer Address Payer Phone Subscriber Number Group Number Insured Name Patient Relationship to Insured Coverage Start Date Coverage End Date [employer] [address] [place] [phone] [id number] CHANTELLE FRIEDMAN Self - patient is the insured Medical (General) History Medical History History ICD Code IDDM Elevated Cholesterol Hypertension Rheumatoid arthritis Urinary incontinence- mild GERD-neg EGD in 2000 Neg. colonoscopy in 2000 and 08/2010 Denies [place],CVA,Lung disease,renal disease Bronchitis Edema of ankles Colonoscopy in 11/2019 with a single tubular adenoma removed; no colitis, biopsies neg for microscopic colitis Neg. celiac disease labs in 2018 Surgical History Surgery Date(Month/Year) Back surgery Cataract removal Tonsillectomy CCY by Dr Dickson 10/2019
--- OUTSIDE RECORDS SUMMARY | 2025-01-11 13:58 | XMS_ITS | Encounter Summary ---
Author Organization [facility] Address [address] [facility] [address] [place] [address] Phone Care Team Providers Care Networking Specialist Name Role Phone Ellen Yan MD Primary Care Provider [phone]- [phone] Encounter Details Date Type Department Care Team ([facility] Contact Info) Description 04/24/2021 Documentation Only [facility] [address] [address] [place] [address] Meena Kemp MA Social History [...] Upcoming Encounters Date Type Department Care Team ([facility] Contact Info) Description 01/19/2025 Orders Only [facility] [address] [place] [address] Sorin Carpio MD [address] [facility] [address] [place] [address] Stage 3 chronic kidney disease, not otherwise specified (HCC) 04/06/2025 1:00 PM EDT Office Visit [facility] [address] [place] [address] Sorin Carpio MD [address] [facility] [address] [place] [id number] documented as of this encounter Procedures Procedure [...] U/L Total Bilirubin 0.3 MG/DL eGFR Non-Afr [facility] 35 Total Protein, Serum 6.2 Blood 04/09/2021 [...] on filedocumented in this encounter Care Teams Networking Specialist Relationship Specialty Start Date End Date Ellen Yan MD [place] [address] PCP - General Internal Medicine 12/03/20 documented as of this encounter
--- OUTSIDE RECORDS SUMMARY | 2025-01-11 13:58 | XMS_ITS | Clinical Summary ---
Author Organization [facility] Address [address] [facility] [address] [place] [address] Phone Care Team Providers Care Chemistry Physics Teacher Name Role Phone Ellen Yan MD Primary Care Provider +1- [phone] Allergies Active Allergy Reactions Criticality Noted Date [...] Care Team (Late st Contact Info) Description 01/19/2025 Orders Only [facility] [address] [place] [address] Sorin Carpio MD [address] [facility] [address] [place] [address] Stage 3 chronic kidney disease, not otherwise specified (HCC) 04/06/2025 1:00 PM EDT Office Visit [facility] [address] [place] [address] Sorin Carpio MD [address] [facility] [address] [place] [address] Health Maintenance Due Date Last Done Comments [...] AM EDT) Hemoglobin A1C 7.2(H) (4.0-5.6) % [facility] Comment: MONITORING: In known diabetic patients, [...] Supplement 1 Testing performed or reported by [facility] Reference [employer], a Service of [facility], [address] [place] [address] Lamont Ortega MD, Tennis Net Maker [facility]# [id number] Blood (Blood, Venous) 02/04/2023 10:21 AM EDT 02/04/2023 10:34 AM EDT us Jim Santiago MD LAB BLOOD ORDERABLES Final Re sult [facility] from Last 3 Months or Most Recently Relevant to Health Maintenance Insurance [employer] [place] [id number] [employer] Care Teams Chemistry Physics Teacher Relationship Specialty Start Date End Date Ellen Yan MD [address] [facility] [place] [address] PCP - General Internal Medicine 12/03/20
--- OUTSIDE RECORDS SUMMARY | 2025-01-11 13:58 | XMS_ITS | Encounter Summary ---
Author Organization [facility] Address [address] [place] [address] Phone Care Team Providers Care Senior Environmental Practice Leader Name Role Phone Ellen Yan MD Primary Care Provider [phone]- [phone] Encounter Details Date Type Department Care Team (Late st Contact Info) Description 04/01/2022 Telephone [facility] [address] [place] [address] Jim Santiago MD [address] [place] [phone] Social History Tobacco Use Types Packs/Day Years [...] over the weekend. Pls call her at [phone] * Telephone Encounter - Kassi Sotelo - 04/01/2022 10:50 AM EDT Pt called, her insurance will not cover the script for joaquín. It needs a PA please advise Thank you documented in this encounter Plan of Treatment Upcoming Encounters Date Type Department Care Team (Late st Contact Info) Description 01/19/2025 Orders Only [facility] [address] [place] [address] Sorin Carpio MD [address] [address] Stage 3 chronic kidney disease, not otherwise specified (HCC) 04/06/2025 1:00 PM EDT Office Visit [facility] [address] [place] [address] Sorin Carpio MD [facility] [address] [address] documented as of this encounter Visit Diagnoses Not on filedocumented in this encounter Care Teams Senior Environmental Practice Leader Relationship Specialty Start Date End Date Ellen Yan MD [address] [place] [address] PCP - General Internal Medicine 12/03/20 documented as of this encounter
== END 2025-01-11 12:07 | disposition home or self-care (01) ==
LOC: HO.RHE 11:25
PROVIDERS: PCP Internal Medicine; Visit Provider Student in an Organized Health Care Education/Training Program
DX: M17.0 Bilateral primary osteoarthritis of knee (principal); M05.79 Rheumatoid arthritis with rheumatoid factor of multiple sites without organ or systems involvement; M85.852 Other specified disorders of bone density and structure, left thigh; Z51.81 Encounter for therapeutic drug level monitoring; Z79.69 Long term (current) use of other immunomodulators and immunosuppressants; Z79.620 Long term (current) use of immunosuppressive biologic; Z79.899 Other long term (current) drug therapy
CPT/HCPCS: 20610; 99213

== ENCOUNTER → 2025-01-11 11:25 | Outpatient (BNVA) | payer MEDICARE, SELFPAY | PROVIDERS: PCP Internal Medicine; Visit Provider Student in an Organized Health Care Education/Training Program | DX: M17.0 Bilateral primary osteoarthritis of knee (principal); M06.9 Rheumatoid arthritis, unspecified; M85.852 Other specified disorders of bone density and structure, left thigh; E11.40 Type 2 diabetes mellitus with diabetic neuropathy, unspecified; E11.22 Type 2 diabetes mellitus with diabetic chronic kidney disease; I12.9 Hypertensive chronic kidney disease with stage 1 through stage 4 chronic kidney disease, or unspecified chronic kidney disease; N18.32 Chronic kidney disease, stage 3b; Z51.81 Encounter for therapeutic drug level monitoring; Z79.69 Long term (current) use of other immunomodulators and immunosuppressants; Z79.620 Long term (current) use of immunosuppressive biologic; Z79.899 Other long term (current) drug therapy | CPT/HCPCS: 20610; 99212; J7323 ==

== ENCOUNTER 2025-01-24 10:27 | Outpatient (AMB) | payer MEDICARE, SELFPAY ==
--- NOTE | 2025-01-24 10:28 | MHC.OFFVIS ---
Vital Signs 01/24/25 10:34 Height 5 ft 2 in Weight 231 lb 7.766 oz BMI 42.3 BP 160/62 H Blood Pressure Location Lt brachial Position Sitting Pulse 76 Pulse Source Pulse Oximeter Pulse Oximetry (%) 95 Oxygen Delivery Method Room Air Intake Visit Reasons: RA/ inj / scheduled per MD req Intake Note: Patient presents today for RA and injection follow up. Allergies codeine [Codeine] Allergy (Severe, Verified 01/24/25 10:33) DIFFICULTY BREATHING Penicillins Adverse Reaction (Intermediate, Verified 01/24/25 10:33) stomach upset semaglutide [From Ozempic] Adverse Reaction (Verified 01/24/25 10:33) Vomiting Medication List - Last Reconciled 01/24/25 by Minal Chapman MD adalimumab (Humira(CF) Pen) 40 mg (0.4 mL) subcut Q2W 56 days albuterol sulfate 90 mcg/actuation 2 puffs inhalation Q6H PRN azithromycin 500 mg PO DAILY 5 days blood sugar diagnostic (Railpod Ultra Test strips) USE 3 TIMES DAILY blood-glucose sensor (Netatmo G7 Sensor device) CHANGE EVERY 10 DAYS DIRECTED blood-glucose,private mortgage banker safe,cont (Dexcom G7 Cafeteria Table Attendant) As directed ljexnikzfw-kgqzwpfm-fcolxyvfeg 160-9-4.8 mcg/actuation (Breztri Aerosphere) 2 inhalations inhalation BID 30 days bumetanide 1 mg PO DAILY cholecalciferol (vitamin D3) 50 mcg PO DAILY coQ10 (ubiquinol) (Qunol Meng CoQ10) 100 mg PO BID gabapentin (Neurontin) 300 mg PO BEDTIME insulin lispro (Humalog U-100 Insulin) Inject up to 80 units with patch pump daily subcutaneously daily; lansoprazole (Prevacid 24Hr) 15 mg PO DAILY leflunomide 10 mg PO DAILY lisinopril 20 mg PO DAILY 30 days pen needle, diabetic (Novofine 32) Use daily As directed for insulin pen needle, diabetic (BD Ultra-Fine Opal Pen Needle) Use 4x a day As directed pravastatin 40 mg PO BEDTIME sub-q insulin device, 40 unit (V-GO 40 device) USE DIRECTED Toujeo Max U-300 SoloStar (insulin glargine U-300 conc) 44 units (0.1467 mL) subcut DAILY 30 days NS HPI Comments Details: Patient is a 73-year-old female with diabetes complicated by diabetic neuropathy, hypertension, hyperlipidemia, CKD stage 3B c/b secondary hyperparathyroidism, monoclonal gammopathy and 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 Interval History: Last seen 01/11/25 by me. She received her 1st Euflexxa injection at that time Today, Patient is here for her second Euflexxa injection Rheumatologic History: Diagnosed with rheumatoid arthritis more than 10 years ago. Currently on Humira and leflunomide. Currently in remission Medication History: Humira 40 mg every other week subQ Leflunomide 10 mg every day [facility] Medical History (Updated 12/28/24 @ 21:46 by Ted Whittington MD) Chronic bronchitis Adalimumab (Humira) long-term use Osteoarthritis of left knee Hyperparathyroid bone disease Hypogammaglobulinemia Trochanteric bursitis of both hips Leg pain, bilateral Herpes zoster vaccination declined COVID-19 vaccine dose declined Diabetic retinopathy Tubular adenoma of colon Osteopenia History of severe acute respiratory syndrome coronavirus 2 (SARS-CoV-2) disease Obesity due to excess calories 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 Postlaminectomy syndrome MGUS (monoclonal gammopathy of unknown significance) 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 mellitus) Diabetic retinopathy associated with type 2 diabetes mellitus CKD (chronic kidney disease) stage 3, GFR 30-59 ml/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 Alcohol intake: never Patient Tobacco Use Status: Former Tobacco user Tobacco use type: Cigarette Cigarettes Per Day: 50 Years Smoked: 20 e-Cigarette/Vaping Use: Never Used Advance Directives Date on File: 02/08/22 service: No Current occupational status: retired Cognitive needs: No Hearing needs: No Vision needs: Yes Review of Systems Const Details: Review of Systems Constitutional: Denies fever, chills, weight loss ENT: Denies vision changes, eye pain or eye redness, dental caries, dry mouth GI: Denies nausea, vomiting, diarrhea, abdominal pain, change in BM Pulm: Denies SOB, RODRIGUEZ, hemoptysis, wheezing Cards: Denies chest pain, palpitations Skin: Denies Raynaud's, rash, nail changes, photosensitivity, [employer]: Denies headaches, weakness, paresthesias, recurrent falls MSK: Complains of joint pain and joint stiffness. Denies joint swelling, muscle weakness, bone pain. Left hip pain All other systems reviewed and are unremarkable except noted above Review of Symptoms Physical Exam Vital Signs: Last Vital Signs Pulse 76 01/24/25 10:34 BP 160/62 H 01/24/25 10:34 Pulse Ox 95 01/24/25 10:34 Oxygen Delivery Method Room Air 01/24/25 10:34 BMI result Body Mass Index 42.3 Physical Examination CONSTITUITIONAL Patient alert and cooperative. Well appearing and in no apparent painful distress HEENT Conjunctiva and sclera clear. ?Pupils equal round and reactive to light. ?No lymphadenopathy. ? CHEST/RESPIRATORY SYSTEM Normal respiratory effort and able to speak in complete sentences. ?Clear to auscultation bilaterally. ?No crackles, rales, rhonchi, wheezes heard. CARDIAC SYSTEM Regular rate and rhythm. ?S1 and S2 heard no murmurs. ?Radial pulses intact bilaterally MSK Hands: ?Good applications programmer analyst strength bilaterally. No deformities noted. ?No synovitis noted to the MCPs, PIPs or DIPs. ?No tenderness to palpation of these joints. Wrists: ?Full range of motion at the wrists without pain. ?No tenderness to palpation or synovitis noted to the wrists. Elbows: Full range of motion without pain. No tenderness, weakness, swelling, increased warmth or erythema. Shoulders: Full range of motion without pain. No tenderness, weakness, swelling, increased warmth or erythema. Hips: Full range of motion without pain. Hip bursa: No tenderness to palpation Knees: ?Full range of motion. ?No tenderness, swelling, increased warmth or erythema.? crepitations Ankles: Full range of motion. ?No tenderness, swelling, increased warmth or erythema.? Feet: ?Negative squeeze test. ?No tenderness to palpation or swelling of the MTPs. Tender points:?No tenderness to palpation of the bilateral trapezius, supraspinatus, greater trochanters, anterior costochondral junctions, bilateral gluteal areas, bilateral suboccipital muscle insertions SKIN Skin intact without rashes. Office Procedures AMB Joint Injection/Aspiration Joint Injection/Aspiration Details: Procedure was explained to the patient and consent was obtained. ? The area of interest was identified and confirmed with patient. ?This was subsequently cleaned with chlorhexidine x3. ? The area was then anesthetized using ethyl chloride spray. 2 cc Euflexxa was injected without issue. ?Minimal to no bleeding. ?Patient tolerated procedure. Primary Site: left knee Prep: site was prepped using aseptic technique and ethochloride spray was applied Injected: other (2 cc Euflexxa) Approach Used: anterior Procedure: The patient tolerated the procedure well Coding 01414 - Large joint Procedure code (CPT) selection complete AMB Joint Injection/Aspiration Joint Injection/Aspiration Details: Procedure was explained to the patient and consent was obtained. ? The area of interest was identified and confirmed with patient. ?This was subsequently cleaned with chlorhexidine x3. ? The area was then anesthetized using ethyl chloride spray. 2 cc Euflexxa was injected without issue. ?Minimal to no bleeding. ?Patient tolerated procedure. Primary Site: right knee Prep: site was prepped using aseptic technique and ethochloride spray was applied Injected: other (2 cc Euflexxa) Approach Used: anterior Procedure: The patient tolerated the procedure well Coding 04105 - Large joint Procedure code (CPT) selection complete Office Meds Euflexxa 10 mg/mL (mw 2.4-3.6 million) intra-articular syringe Performing Provider: Minal Chapman MD Performing Location: [facility] Administered by: Minal Chapman MD on 01/24/25 10:59 Dose Route Admin Location Dispensed Lot Number Expiration Date [facility] Color Straining Bag Washer 20 mg intra-articular Left knee 2 mL [id number] 09/24/25 [address]-5 [employer] Euflexxa 10 mg/mL (mw 2.4-3.6 million) intra-articular syringe Performing Provider: Minal Chapman MD Performing Location: [facility] Administered by: Minal Chapman MD on 01/24/25 10:59 Dose Route Admin Location Dispensed Lot Number Expiration Date [facility] Color Straining Bag Washer 20 mg intra-articular Right knee 2 mL [id number] 09/24/25 [address]-6 [employer] Results Reviewed Results Reviewed: Laboratory Tests 12/27/24 09:30 WBC 7.7 RBC 4.40 Hgb 12.5 Hct 38.6 Plt Count 295 ESR 41 H Sodium 143 Potassium 4.7 Chloride 109 H Carbon Dioxide 25 BUN 42 H Creatinine 1.37 Total Bilirubin 0.4 AST 27 ALT 17 Alkaline Phosphatase 76 C-Reactive Protein 1.04 H Left Knee XR 06/2021 FINDINGS: A single sunrise view left knee reveals loss of lateral compartment patellofemoral joint space with lateral patellar enthesophyte. No loose bodies or bony erosive changes seen. The soft tissues are normal. IMPRESSION: Mild degenerative changes lateral patellofemoral compartment with lateral patellar periarticular spurring. FINDINGS: 4 mm calcified density seen adjacent to the medial tibial spine has been present previously and appears to represent a loose body. Linear calcification is present about the anterior lateral soft tissues of the knee. There are vascular calcifications present. There is some calcification about the medial femoral condyle which may be related to previous medial collateral ligament injury. There is also some calcification about the lateral aspect of the patella which was not definitely seen previously and may be related to avulsion injury or spurring. No knee effusion is appreciated. There is mild narrowing of the medial joint space compartment. IMPRESSION: No effusion of the left knee identified. Findings of probable loose body and other changes of question medial collateral ligament injury and either spur or avulsion injury about the patella. Assessment & Plan Assessment & Plan (1) Primary osteoarthritis of both knees: Code(s): M17.0 - Bilateral primary osteoarthritis of knee Plan: #Bilateral Knee OA s/p Euflexxa 2nd dose RTC 1 week for 3rd dose (2) Seropositive rheumatoid arthritis: Code(s): M05.9 - Rheumatoid arthritis with rheumatoid factor, unspecified Category: Medical Plan: #Seropositive RA Patient with seropositive erosive rheumatoid arthritis. Currently in remission Plan - Humira 40mg SC every other week - Leflunomide 10mg daily (3) Osteopenia: Comment: DEXA 10/2022: AP Spine 2.8, Left femur neck -1.1, Left femur 0.9. FRAX 16.6%/2.5% Code(s): M85.80 - Other specified disorders of bone density and structure, unspecified site Category: Medical Qualifiers: Osteopenia location: femoral neck Laterality: left Qualified Code(s): M85.852 - Other specified disorders of bone density and structure, left thigh Plan: #Osteopenia Osteopenia of the left femoral neck based on DEXA. Encouraged vitamin-D and calcium supplementation. Weight-bearing exercises. Repeat DEXA in 2024 Plan - Vitamin D supplementation - Encourage daily Ca intake - Weight bearing exercises - DEXA ordered (4) Encounter for monitoring leflunomide therapy: Code(s): Z51.81 - Encounter for therapeutic drug level monitoring; Z79.69 - senior living (current) use of other immunomodulators and immunosuppressants Plan: #Long-term leflunomide Discussed with patient the benefits and risks of leflunomide for managing the rheumatic condition Benefits include: - Reduced pain, maintenance of remission and reduction of flares Risks include: - GI upset especially diarrhea, skin rash, cytopenias, hepatotoxicity, weight loss, neuropathy Monitoring: ?CBC, BMP, LFTs, hepatitis B and C serologies (5) Long-term use of adalimumab: Code(s): 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 Category: Medical Plan: #Long-term use of TNF Inhibitors Discussed with the patient the benefits and risks of TNF inhibitors for the management of the rheumatic condition Benefits include reduce pain, maintenance of remission and reduction of flares as well as progression of the disease Risks include injection sites/infusion reactions, serious infections (such as bacterial infections, opportunistic infections), malignancy, delaminating syndromes, autoimmune phenomena, CHF exacerbations, palmar plantar psoriasis and cytopenias Recommended rotating injection sites, and holding medication during and for up to 1 week after resolution of a febrile illness or open skin wound (6) senior living use of drug: Code(s): Z79.899 - Other nursing home (current) drug therapy Category: Medical Plan: #Long-term leflunomide Discussed with patient the benefits and risks of leflunomide for managing the rheumatic condition Benefits include: - Reduced pain, maintenance of remission and reduction of flares Risks include: - GI upset especially diarrhea, skin rash, cytopenias, hepatotoxicity, weight loss, neuropathy Monitoring: ?CBC, BMP, LFTs, hepatitis B and C serologies Plan I spent 20 minutes reviewing the record and labs, seeing the patient, discussing the treatment plan and documenting in the medical record Orders: Orders AMB Joint Injection/Aspiration Today M17.0 - Bilateral primary osteoarthritis of knee AMB Joint Injection/Aspiration Today M17.0 - Bilateral primary osteoarthritis of knee Medications: New Euflexxa (sodium hyaluronate (viscosup)) 20 mg (2 mL) intra-articular ONCE 2 mL 0RF NS M17.0 - Bilateral primary osteoarthritis of knee Euflexxa (sodium hyaluronate (viscosup)) 20 mg (2 mL) intra-articular ONCE 2 mL 0RF NS M17.0 - Bilateral primary osteoarthritis of knee Coding Level of Care Code Est Pt Level 3 (84835) Complex EM visit Add On G2211 Diagnoses Primary osteoarthritis of both knees M17.0 Seropositive rheumatoid arthritis M05.9 Osteopenia of neck of left femur M85.852 Osteopenia location: femoral neck Laterality: left Encounter for monitoring leflunomide therapy Z51.81; Z79.69 Long-term use of adalimumab Z79.620 senior living use of drug Z79.899 CPT Codes Coding - 76069 Large joint: 99041 - Large joint ([id number]) Coding - 89298 Large joint: 35279 - Large joint ([id number])
[2025-01-24 10:34] VITALS: BP 160/62; PULSE 76; O2SAT 95; BMI 42.3
--- OUTSIDE RECORDS SUMMARY | 2025-01-24 12:35 | XMS_ITS | Patient Health Record ---
Author Organization [facility] Address [address] [place] [address] Care Team Providers Care Building Dismantler Name Role Phone Yuriy GARCIA, Lyndsay Primary Care Provider Bang Moore Unavailable [phone] Allergies Allergen (clinical drug ingredient) Drug/Non Drug Allergy documented on EMR Reaction Allergy Type Onset Date Status semaglutide Ozempic Unknown Drug Allergy Activ e codeine Codeine Sulfate Unknown Drug Allergy A ctive Reason For Referral No Information Medications Medication SIG (Take, Route, Frequency, Duration) Notes Start Date End Date Status Prevacid 15 MG 1 capsule Orally Onc e a day for 30 day(s) Active Toujeo Max SoloStar 300 UNIT/ML INJECT 40 UNIT (0.1333 ML) SUBCUTANEOUSLY BEDTIME Subcutaneous for 45 Not-Taking Bumetanide 1 MG TAKE 1 TABLET BY MOUTH EVERY DAY Oral for 90 Active sulfaSALAzine 500 MG TAKE 1 TABLET BY MOUTH EVERY 12 HOURS Oral for 30 Not-Taking Aspirin Adult Low Dose 81 MG 1 tablet Orally Once a day for 30 day(s) Not-Taking CoQ-10 100 MG 1 capsule with a aki l Orally Once a day for 30 day(s) Active V-Go 40 - as directed Active Leflunomide 10 MG Oral for 30 Active ProAir HFA 108 (90 Base) MCG/ACT 2 puffs as needed Inhalation every 6 hrs as needed Active Humira (2 Pen) 40 MG/0.4ML 0.4 mL Subcutaneous every 2 weeks Active Lisinopril 20 MG Oral for 90 A ctive Gabapentin 300 MG TAKE 1 CAPSULE BY MOUTH AT BEDTIME Oral for 90 Active Pravastatin Sodium 40 MG TAKE 1 TABLET BY MOUTH EVERY DAY Oral for 90 Active Leflunomide 10 MG Oral for 90 Days Active Vitamin D 50 MCG (2000 UT) 1 tablet Orally Once a day Active Insulin Lispro 100 UNIT/ML Injection for 85 Active Immunizations Vaccine Route Administration Date Status [...] alcohol Nonsmoker; no alcohol Nonsmoker; no alcohol Nonsmoker; no alcohol Problems Problem Type SNOMED Code ICD Code Onset Dates Problem Status W/U Status Risk Notes Problem Colon cancer screening (406765754) Colon cancer screening (Z12.11) Active confirmed Problem 49313164 Epigastric abdominal pain (R10.13) Active confirmed Problem 364912109 History of adenomatous polyp of colon (Z86.010) Active confirmed Problem Diarrhea (63942933) Diarrhea (R19.7) Active con firmed Problem Change in bowel habit (02015030) Change in bowel habit (R19.4) Active confirmed Problem History of polyp of colon (situation) (807917345) Personal history of colonic polyps (Z86.010) Active confirmed Problem 37917109 Calculus of gallbladder without cholecystitis without obstruction (K80.20) Active confirmed Problem 667522306 Gastroesophageal reflux disease without esophagitis (K21.9) Active confirmed Problem Preprocedural examination (516227224209079) Preprocedural examination (Z01.818) Active confirmed Problem 08181879 Diarrhea, unspecified type (R19.7) Active confirmed Problem 040020386 RUQ abdominal pa in (R10.11) Active confirmed Problem 080168722 RUQ pain (R10.11) Active confirmed Problem 507919726 Left renal mass (N28.89) Active confirmed Problem 08316738533890449 Abnormal ultrasound of left kidney (R93.422) Active confirmed Vital Signs Blood pressure diastolic 11 mm Hg 01/12/2025 Height 62 in 01/12/2025 Blood pressure systolic 111 mm Hg 01/12/2025 Weight 230 lbs 01/12/2025 BMI 42.06 kg/m2 01/12/2025 Procedures Procedure Date Ordered Date Performed Result Body Sit e COLONOSCOPY 01/12/2025 N/A Encounters Encounter Location Date Provider Diagnosis [facility] [address] [place] [address] 01/12/2025 Bang Little Personal history of colonic polyps Z86.010 ; Colon cancer screening Z12.11 and Preprocedural examination Z01.818 Assessments Encounter Date Diagnosis (ICD Code) Assessment Notes Treatment Notes Treatment Clinical Notes Section Notes 01/12/2025 Personal history of colonic polyps (ICD-10 - Z86.010) Overall, Paola appears well and is not having any new or worrisome GI complaints. I did recommend a follow-up colonoscopy for further screening given her history of a tubular adenoma removed in 2019. We did review the rationale for this in regard to colorectal cancer prevention. Full consent has been obtained for this, including risks of bleeding and perforation. The procedure will be done with monitored anesthesia care. She was given the below instructions regarding adjustment of her medications for the procedure. Paola was comfortable with this plan. Thank you again for allowing me to participate in Paola's care. I shall continue to keep you advised of her progress. 01/12/2025 Colon cancer screening (ICD-10 - Z12.11) Overall, Paola appears well and is not having any new or worrisome GI complaints. I did recommend a follow-up colonoscopy for further screening given her history of a tubular adenoma removed in 2019. We did review the rationale for this in regard to colorectal cancer prevention. Full consent has been obtained for this, including risks of bleeding and perforation. The procedure will be done with monitored anesthesia care. She was given the below instructions regarding adjustment of her medications for the procedure. Paola was comfortable with this plan. Thank you again for allowing me to participate in Paola's care. I shall continue to keep you advised of her progress. 01/12/2025 Preprocedural examination (ICD-10 - Z01.818) Overall, Paola appears well and is not having any new or worrisome GI complaints. I did recommend a follow-up colonoscopy for further screening given her history of a tubular adenoma removed in 2019. We did review the rationale for this in regard to colorectal cancer prevention. Full consent has been obtained for this, including risks of bleeding and perforation. The procedure will be done with monitored anesthesia care. She was given the below instructions regarding adjustment of her medications for the procedure. Paola was comfortable with this plan. Thank you again for allowing me to participate in Paola's care. I shall continue to keep you advised of her progress. Plan Of Treatment Pending Test Test Name Order Date COLONOSCOPY 01/12/2025 BUN 04/05/2023 LIVER PROFILE 03/24/2023 CBC w DIFF 04/05/2023 CBC w DIFF 03/24/2023 CBC w DIFF 09/02/2019 CT ABD & PELVIS WWO CONTRAST 04/05/2023 Electrolytes 04/05/2023 Creatinine 04/05/2023 CT abdomen pelvis wo/w con 04/15/2023 US abdomen complete 03/24/2023 Future Test Test Name Order Date COLONOSCOPY 09/02/2019 Next Appt Details Provider Name:Bang Little , 04/17/2025 09:10:00 AM, [address] [place] [address] , [place], [place], [id number], Insurance Providers Payer Name Payer Address Payer Phone Subscriber Number Group Number Insured Name Patient Relationship to Insured Coverage Start Date Coverage End Date [employer] [facility] [address] [place] [address] [id number] ELDER PAOLA Self - patient is the insured Medical (General) History Medical History History ICD Code IDDM Elevated Cholesterol Hypertension Rheumatoid arthritis Urinary incontinence- mild GERD-neg EGD in 2000 Neg. colonoscopy in 2000 and 08/2010 Denies VT,CVA,Lung disease,renal disease Bronchitis Edema of ankles Colonoscopy in 11/2019 with a single tubular adenoma removed; no colitis, biopsies neg for microscopic colitis Neg. celiac disease labs in 2018 Left renal cancer found inci dentally during a CT scan I ordered in 2022 for some abdominal pain. The cancer was treated with cryoablation and has been stable. Surgical History Surgery Date(Month/Year) CCY by Dr Dickson 10/2019 Tonsillectomy Cataract removal Back surgery
--- OUTSIDE RECORDS SUMMARY | 2025-01-24 12:35 | XMS_ITS | Encounter Summary ---
Author Organization [facility] Address [address] [facility] [address] [place] [address] Phone Care Team Providers Care Axle Polisher Name Role Phone lElen Yan MD Primary Care Provider [phone] Encounter Details Date Type Department Care Team ([facility] Contact Info) Description 04/24/2021 Documentation Only [facility] [address] [facility] [address] [place] [address] Meena Kemp MA Social History [...] Upcoming Encounters Date Type Department Care Team ([facility] Contact Info) Description 04/06/2025 1:00 PM EDT Office Visit [facility] [address] [place] [phone] Sorin Carpio MD [address] [facility] [address] [place] [address] documented as of this encounter [...] U/L Total Bilirubin 0.3 MG/DL eGFR Non-Afr Vietnamese 35 Total Protein, Serum 6.2 Blood 04/09/2021 [...] on filedocumented in this encounter Care Teams Axle Polisher Relationship Specialty Start Date End Date Ellen Yan [place] [address] PCP - General Internal Medicine 12/03/20 documented as of this encounter
--- OUTSIDE RECORDS SUMMARY | 2025-01-24 12:35 | XMS_ITS | Clinical Summary ---
Author Organization [facility] Address [address] [facility] [address] [place] [address] Phone Care Team Providers Care Insurance Claims Adjuster Name Role Phone Ellen Yan MD Primary Care Provider +1- [phone] Allergies Active Allergy Reactions Criticality Noted Date [...] 01/24/2021 Chronic kidney disease, stage 2 (mild) Encounters Date Type Department Care Team Description 01/19/2025 Orders Only [facility] [address] [place] [address] Sorin Carpio MD Stage 3 chronic kidney disease, not otherwise specified (HCC) from Last 3 Months Family History Medical History Relation Comments Hodgkin's [...] Care Team (Late st Contact Info) Description 04/06/2025 1:00 PM EDT Office Visit [facility] [address] [place] [address] Sorin Carpio MD [address] [facility] [address] [place] [address] Health Maintenance Due Date Last Done Comments Breast Cancer Screening 1950 Pneumococcal Vaccine: 50+ Ye ars (1 of 2 - PCV) 1969 Colorectal Cancer Screening: Annual FOBT 1999 Colorectal Cancer Screening: Colonoscopy 1999 Colorectal Cancer Screening: Sigmoidoscopy 1999 Diabetes: Ophthalmology Exam 01/24/2021 Diabetes: Pedal Pulse Checked 01/24/2021 Diabetes: Sensory Foot Exam 01/24/2021 Diabetes: Visual Foot Exam 01/24/2021 Diabetes: Hemoglobin A1C 05/06/2023 02/04/2023 Influenza Vaccine (Season Ended) 2025 Hepatitis B Vaccine Aged Out No longe [...] AM EDT) Hemoglobin A1C 7.2(H) (4.0-5.6) % [facility] Comment: MONITORING: In known diabetic patients, hemoglobin A1c targets should be discussed with health care provider. DIAGNOSTIC USE: ??The [place] [employer] (ADA) and the World Health [...] Supplement 1 Testing performed or reported by [facility], a Service of [facility], [address] [place] [address] Lamont Ortega MD, Gym Supervisor [facility]# [id number] Blood (Blood, Venous) 02/04/2023 10:21 AM EDT 02/04/2023 10:34 AM EDT Jim Santiago MD LAB BLOOD ORDERABLES Final Re sult [facility] from Last 3 Months or Most Recently Relevant to Health Maintenance Insurance [place] Care Teams Insurance Claims Adjuster Relationship Specialty Start Date End Date Ellen Yan MD [address] [place] [id number] PCP - General Internal Medicine 12/03/20
--- OUTSIDE RECORDS SUMMARY | 2025-01-24 12:35 | XMS_ITS | Encounter Summary ---
Author Organization [facility] Address [address] [place] [address] Phone Care Team Providers Care Sales And Production Manager Name Role Phone Ellen Yan MD Primary Care Provider +1- [phone] Encounter Details Date Type Department Care Team (Late st Contact Info) Description 04/01/2022 Telephone [facility] [address] [place] [address] Jim Santiago MD [address] [place] [phone] Social History Tobacco Use Types Packs/Day Years [...] over the weekend. Pls call her at [phone] * Telephone Encounter - Kassi Sotelo - 04/01/2022 10:50 AM EDT Pt called, her insurance will not cover the script for joaquín. It needs a PA please advise Thank you documented in this encounter Plan of Treatment Upcoming Encounters Date Type Department Care Team (Late st Contact Info) Description 04/06/2025 1:00 PM EDT Office Visit [facility] [address] [place] [address] Sorin Carpio MD [address] [facility] [address] [place] [phone] documented as of this encounter Visit Diagnoses Not on filedocumented in this encounter Care Teams Sales And Production Manager Relationship Specialty Start Date End Date Ellen Yan MD [address] [place] [address] PCP - General Internal Medicine 12/03/20 documented as of this encounter
--- OUTSIDE RECORDS SUMMARY | 2025-01-24 12:35 | XMS_ITS | Encounter Summary ---
Author Organization [facility] Address [address] [address] Phone Care Team Providers Care Vp Research Name Role Phone Ellen Yan MD Primary Care Provider +1- [phone] Encounter Details Date Type Department Care Team (Late Contact Info) Description 01/19/2025 Orders Only [facility] [address] [place] [address] Sorin Carpio MD [address] [address] Stage 3 chronic kidney disease, not otherwise specified (HCC) Social History Tobacco Use Types Packs/Day Years [...] on file documented as of this encounter Plan of Treatment Upcoming Encounters Date Type Department Care Team (Late st Contact Info) Description 04/06/2025 1:00 PM EDT Office Visit [facility] [address] [place] [address] Sorin Carpio MD [address] [address] documented as of this encounter Visit Diagnoses Diagnosis Stage 3 chronic kidney disease, not otherwise specified (HCC) documented in this encounter Care Teams Vp Research Relationship Specialty Start Date End Date Ellen Yan MD [facility] [place] [address] PCP - General Internal Medicine 12/03/20 documented as of this encounter
--- OUTSIDE RECORDS SUMMARY | 2025-01-24 12:35 | XMS_ITS ---
Author Organization [facility] Address [address] [place] [phone] Care Team Providers Care Vp Treasurer Name Role Phone Yuriy GARCIA, Lyndsay Primary Care Provider Bang Moore Unavailable [phone] Allergies Allergen (clinical drug ingredient) Drug/Non Drug Allergy documented on EMR Reaction Allergy Type Onset Date Status semaglutide Ozempic Unknown Drug Allergy Activ e codeine Codeine Sulfate Unknown Drug Allergy A ctive REASON FOR VISIT Patient presents today for a colon screening Medications Medication SIG (Take, Route, Frequency, Duration) Notes Start Date End Date Status Humira (2 Pen) 40 MG/0.4ML 0.4 mL Subcutaneous every 2 weeks Active Toujeo Max SoloStar 300 UNIT/ML INJECT 40 UNIT (0.1333 ML) SUBCUTANEOUSLY BEDTIME Subcutaneous for 45 Not-Taking sulfaSALAzine 500 MG TAKE 1 TABLET BY MOUTH EVERY 12 HOURS Oral for 30 Not-Taking Leflunomide 10 MG Oral for 90 Days Active Insulin Lispro 100 UNIT/ML Injection for 85 Active V-Go 40 - as directed Active Leflunomide 10 MG Oral for 30 Active ProAir HFA 108 (90 Base) MCG/ACT 2 puffs as needed Inhalation every 6 hrs as needed Active Lisinopril 20 MG Oral for 90 A ctive Gabapentin 300 MG TAKE 1 CAPSULE BY MOUTH AT BEDTIME Oral for 90 Active Prevacid 15 MG 1 capsule Orally Onc e a day for 30 day(s) Active Bumetanide 1 MG TAKE 1 TABLET BY MOUTH EVERY DAY Oral for 90 Active Aspirin Adult Low Dose 81 MG 1 tablet Orally Once a day for 30 day(s) Not-Taking CoQ-10 100 MG 1 capsule with a aki l Orally Once a day for 30 day(s) Active Pravastatin Sodium 40 MG TAKE 1 TABLET BY MOUTH EVERY DAY Oral for 90 Active Vitamin D 50 MCG (1999) 1 tablet Orally Once a day Active Social History Tobacco Use: Social History Observation [...] Interpretation Negative Section Notes: Nonsmoker; no alcohol Problems Problem Type SNOMED Code ICD Code Onset Dates Problem Status W/U Status Risk Notes Problem History of polyp of colon (situation) (235372547) Personal history of colonic polyps (Z86.010) Active confirmed Problem Colon cancer screening (988242994) Colon cancer screening (Z12.11) Active confirmed Problem Preprocedural examination (054147471498943) Preprocedural examination (Z01.818) Active confirmed Vital Signs Blood pressure systolic 111 mm Hg 01/13/20 25 Blood pressure diastolic 11 mm Hg 025 Height 62 in 01/12/2025 Weight 230 lbs 01/12/2025 BMI 42.06 kg/m2 01/12/2025 Procedures Procedure Date Ordered Date Performed Result Body Sit e COLONOSCOPY 01/12/2025 N/A Encounters Encounter Location Date Provider Diagnosis [facility] [address] [place] [address] 01/12/2025 Bang Little Personal history of colonic [...] Test Test Name Order Date COLONOSCOPY 01/12/2025 Next Appt Details Provider Name:Bang Little , 04/17/2025 09:10:00 AM, [address] [place] [address], [id number], Progress Notes * PAOLA FRIEDMANDOB: [birth year] (74 yo F)Acc No.[id number]:01/12/2025 Progress Notes Patient:?PAOLA FRIEDMAN Provider:?Bang Little MD :1950???Age:74 Y???Sex:Female D ate:01/12/2025 Address:[address] [place] [address] [place] Pcp:Lyndsay Yan MD Subjective: * Chief Complaints: * ???1. Patient presents today for a colon screening. * HPI: ???incontinence:? I saw Paola in the office today for evaluation of colorectal cancer screening in regard to her personal history of a tubular adenoma of the colon. I last saw Paola in 2022 when she was having some abdominal pain. The workup for that was negative and those symptoms did resolve, but the CT scan at that time revealed the incidental finding of a left sided renal cancer. This was treated with cryoablation and has been stable since that time. She presently feels very well. She enjoys a good appetite and denies any significant heartburn on her daily Prevacid. She denies any dysphagia, early satiety, nausea, nor vomiting. Her bowel movements remain somewhat loose in the morning but are not bothersome the remainder of the day. She denies any hematochezia nor melena. She denies abdominal pain, jaundice, nor unintentional weight loss. She denies any family history of first-degree relatives with colorectal cancer. She did have a MRI of the abdomen in November that did not show any sign of recurrent renal cancer or any other significant abnormalities. * Medical History:?IDDM, [place] Cholesterol, Hypertension, Rheumatoid arthritis, Urinary incontinence- mild, GERD-neg EGD in 2000, Neg. colonoscopy in 2000 and 08/2010, Denies NC,CVA,Lung disease,renal disease, Bronchitis, Edema of ankles, Colonoscopy in 11/2019 with a single tubular adenoma removed; no colitis, biopsies neg for microscopic colitis, Neg. celiac disease labs in 2018, Left renal cancer found incidentally during a CT scan I ordered in 2022 for some abdominal pain. The cancer was treated with cryoablation and has been stable.. * Surgical History:?Back surge ry , Cataract removal , Tonsillectomy , CCY by Dr Dickson 10/2019. * Family History:?Father: dece ased.?Mother: , diagnosed with Diabetes.?Paternal uncle: , diagnosed with Colon cancer.? Sister from Pancreatic cancer Sister from nonHodgkin's lymphoma disease Sister with celiac disease Mother had stroke. Paternal uncle from colon cancer. * Social History:?Tobacco Use:?Tobacco Use/Smoking?Patient is a?former smoker,?When did you stop smoking??over 30 years ago,?How long has it been since you last smoked??> 10 years.?Drugs/Alcohol:?Alcohol Screen?Did you have a drink containing alcohol in the past year??No,?Points?0,?Interpretation?Negative.?Miscellaneous:?Marital status: single. Occupation: retired. ???Nonsmoker; no alcohol. * Medications:?Taking Humira ( 2 Pen) 40 MG/0.4ML Auto-injector Kit 0.4 mL Subcutaneous , Notes to Pharmacist: every 2 weeks, Taking Vitamin D 50 MCG (2000 UT) Tablet 1 tablet Orally Once a day , Taking Pravastatin Sodium 40 MG Tablet TAKE 1 TABLET BY MOUTH EVERY DAY Oral , Taking Bumetanide 1 MG Tablet TAKE 1 TABLET BY MOUTH EVERY DAY Oral , Taking Prevacid 15 MG Capsule Delayed Release 1 capsule Orally Once a day , Taking CoQ-10 100 MG Capsule 1 capsule with a meal Orally Once a day , Taking V- Go 40 - Kit as directed , Taking ProAir HFA 108 (90 Base) MCG/ACT Aerosol Solution 2 puffs as needed Inhalation every 6 hrs , Notes to Pharmacist: as needed, Taking Leflunomide 10 MG Tablet Oral , Taking Gabapentin 300 MG Capsule TAKE 1 CAPSULE BY MOUTH AT BEDTIME Oral , Taking Lisinopril 20 MG Tablet Oral , Taking Insulin Lispro 100 UNIT/ML Solution Injection , Taking Leflunomide 10 MG Tablet Oral , Not- Taking/PRN Aspirin Adult Low Dose 81 MG Tablet Delayed Release 1 tablet Orally Once a day , Not-Taking/PRN sulfaSALAzine 500 MG Tablet Delayed Release TAKE 1 TABLET BY MOUTH EVERY 12 HOURS Oral , Not-Taking/PRN Toujeo Max SoloStar 300 UNIT/ML Solution Pen-injector INJECT 40 UNIT (0.1333 ML) SUBCUTANEOUSLY BEDTIME Subcutaneous , Discontinued LoCalnesium 166.67-83.33 MG Tablet as directed Orally , Discontinued HumaLOG 100 UNIT/ML Solution UP TO 80 UNITS VIA V-GO 40 DAILY SUBCUTANEOUS 30 DAYS Subcutaneous , Discontinued Calcium 600 MG Tablet 1 tablet with meals Orally Twice a day , Discontinued Tylenol Extra Strength 500 MG Tablet 1 tablet as needed Orally every 6 hrs , Notes to Pharmacist: as needed, Discontinued Neurontin 300 MG Capsule 1 capsule Orally Once a day , Medication List reviewed and reconciled with the patient * Allergies:?Codeine Sulfate, Ozempic. Objective: * Vitals:?Wt: 230 lbs, Ht: 62 in, BMI: 42.06 Index, BP: 111/11 mm Hg, [id number]-k.[id number]. Assessment: * Assessment: 1.?Personal history of colon ic polyps - Z86.010???2.?Colon cancer screening - Z12.11???3.?Preprocedural examination - Z01.818??? Overall, Paola appears wel l and is not having any new or [...] to keep you advised of her progress. Plan: * Treatment: 2.?Colon cancer screening?Procedure: COLONOSCOPY* With MAC. Take only 1/2 your insulin shot the night before the colonoscopy. Do not take the Bumetanide the day before or on the day of the colonoscopysched for 04/17/25 at 9:10 ammiralax * Procedure Codes:?95654 DIAGN OSTIC COLONOSCOPY * Preventive Medicine:? ??Counseling:?Care goal follow-up plan:?Above Normal BMI Follow-up?Giving encouragement to exercise,?BMI management provided?Yes.? ??Urinary Incontinence:?Urinary Incontinence?Assessment:?Absent,?Plan of care documented:?No, reason not specified.? ??Screenings:?Fall Risk Screening?Fall Risk Assessment:?No falls in the past year,?Screening:?No falls in the past year,?Assessment:?Not performed, no reason specified,?Plan of Care:?Not documented, no reason specified.? * * The named appointment provid er may or may not be the originator of this progress note, and it is not deemed complete until electronically signed by the appointment provider. Sign off status: Pending * Provider:?Bang Little MD Date:? 025 Generated for Cristopher gomez/Ashwini/Nayan on:?01/24/2025 12:34 PM EDT
== END 2025-01-24 10:56 | disposition home or self-care (01) ==
LOC: HO.RHE 10:27
PROVIDERS: PCP Internal Medicine; Visit Provider Student in an Organized Health Care Education/Training Program
DX: M17.0 Bilateral primary osteoarthritis of knee (principal); M05.79 Rheumatoid arthritis with rheumatoid factor of multiple sites without organ or systems involvement; M85.852 Other specified disorders of bone density and structure, left thigh; Z51.81 Encounter for therapeutic drug level monitoring; Z79.69 Long term (current) use of other immunomodulators and immunosuppressants; Z79.620 Long term (current) use of immunosuppressive biologic; Z79.899 Other long term (current) drug therapy
CPT/HCPCS: 20610; 99213

== ENCOUNTER → 2025-01-24 10:27 | Outpatient (BNVA) | payer MEDICARE, SELFPAY | PROVIDERS: PCP Internal Medicine; Visit Provider Student in an Organized Health Care Education/Training Program | DX: M17.0 Bilateral primary osteoarthritis of knee (principal); E11.40 Type 2 diabetes mellitus with diabetic neuropathy, unspecified; M05.9 Rheumatoid arthritis with rheumatoid factor, unspecified; M85.852 Other specified disorders of bone density and structure, left thigh; Z51.81 Encounter for therapeutic drug level monitoring; Z79.69 Long term (current) use of other immunomodulators and immunosuppressants; Z79.620 Long term (current) use of immunosuppressive biologic; Z79.899 Other long term (current) drug therapy | CPT/HCPCS: 20610; 99212; J7323 ==

== ENCOUNTER 2025-01-31 07:50 | Outpatient (AMB) | payer MEDICARE, SELFPAY ==
--- NOTE | 2025-01-31 07:52 | A.OFFVIS_ITS ---
Vital Signs 01/31/25 07:58 Height 5 ft 2 in Weight 230 lb 2.601 oz BMI 42.1 BP 142/70 H Blood Pressure Location Lt brachial Position Sitting Pulse 74 Pulse Source Pulse Oximeter Pulse Oximetry (%) 96 Oxygen Delivery Method Room Air Intake Visit Reasons: RA/ inj Intake Note: Patient presents for RA and injection follow up. 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 Interval History: Last seen 01/11/25 by me. She received her 2nd Euflexxa injection at that time Today, Patient is here for her third Euflexxa injection Rheumatologic History: Diagnosed with rheumatoid arthritis more than 10 years ago. Currently on Humira and leflunomide. Currently in remission Medication History: Humira 40 mg every other week subQ Leflunomide [address] [facility] Medical History (Updated 12/28/24 @ 21:46 by Ted Whittington MD) Chronic bronchitis Adalimumab (Humira) long-term use Osteoarthritis of left knee Hyperparathyroid bone disease Hypogammaglobulinemia Trochanteric bursitis of both hips Leg pain, bilateral Herpes zoster vaccination declined COVID-19 vaccine dose declined Diabetic retinopathy Tubular adenoma of colon Osteopenia History of severe acute respiratory syndrome coronavirus 2 (SARS-CoV-2) disease Obesity due to excess calories 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 Postlaminectomy syndrome MGUS (monoclonal gammopathy of unknown significance) 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 mellitus) Diabetic retinopathy associated with type 2 diabetes mellitus CKD (chronic kidney disease) stage 3, GFR 30-59 ml/min penitentiary (current) use of insulin GERD (gastroesophageal reflux disease) Type 2 diabetes mellitus with diabetic polyneuropathy Essential hypertension Dyslipidemia Surgical History Hx of colonoscopy Hx laparoscopic cholecystectomy Hx of tonsillectomy Hx of cataract surgery History of back surgery Family History Mother Diabetes CVD (cardiovascular disease) HTN (hypertension) Father Hodgkin disease Brother Hodgkin disease Sister Pancreatic cancer Sister Lung cancer Non-Hodgkin lymphoma Paternal Uncle Colon cancer Social History Household Members: None Housing: Condominium Alcohol intake: never Patient Tobacco Use Status: Former Tobacco user Tobacco use type: Cigarette Cigarettes Per Day: 50 Years Smoked: 20 e-Cigarette/Vaping Use: Never Used Advance Directives Date on File: 02/08/22 service: No Current occupational status: retired Cognitive needs: No Hearing needs: No Vision needs: Yes Review of Systems Const Details: Review of Systems Constitutional: Denies fever, chills, weight loss ENT: Denies vision changes, eye pain or eye redness, dental caries, dry mouth GI: Denies nausea, vomiting, diarrhea, abdominal pain, change in BM Pulm: Denies SOB, RODRIGUEZ, hemoptysis, wheezing Cards: Denies chest pain, palpitations Skin: Denies Raynaud's, rash, nail changes, photosensitivity, VP HUMAN RESOURCES: Denies headaches, weakness, paresthesias, recurrent falls MSK: Complains of joint pain and joint stiffness. Denies joint swelling, muscle weakness, bone pain. Left hip pain All other systems reviewed and are unremarkable except noted above Review of Sy mptoms Physical Exam Vital Signs: Last Vital Signs Pulse 74 01/31/25 07:58 BP 142/70 H 01/31/25 07:58 Pulse Ox 96 01/31/25 07:58 Oxygen Delivery Method Room Air 01/31/25 07:58 BMI result Body Mass Index 42.1 Physical Examination CONSTITUITIONAL Patient alert and cooperative. Well appearing and in no apparent painful distress HEENT Conjunctiva and sclera clear. ?Pupils equal round and reactive to light. ?No lymphadenopathy. ? CHEST/RESPIRATORY SYSTEM Normal respiratory effort and able to speak in complete sentences. ?Clear to auscultation bilaterally. ?No crackles, rales, rhonchi, wheezes heard. CARDIAC SYSTEM Regular rate and rhythm. ?S1 and S2 heard no murmurs. ?Radial pulses intact bilaterally MSK Hands: ?Good lawn care worker strength bilaterally. No deformities noted. ?No synovitis noted to the MCPs, PIPs or DIPs. ?No tenderness to palpation of these joints. Wrists: ?Full range of motion at the wrists without pain. ?No tenderness to palpation or synovitis noted to the wrists. Elbows: Full range of motion without pain. No tenderness, weakness, swelling, increased warmth or erythema. Shoulders: Full range of motion without pain. No tenderness, weakness, swelling, increased warmth or erythema. Hips: Full range of motion without pain. Hip bursa: No tenderness to palpation Knees: ?Full range of motion. ?No tenderness, swelling, increased warmth or erythema.? crepitations Ankles: Full range of motion. ?No tenderness, swelling, increased warmth or erythema.? Feet: ?Negative squeeze test. ?No tenderness to palpation or swelling of the MTPs. Tender points:?No tenderness to palpation of the bilateral trapezius, supraspinatus, greater trochanters, anterior costochondral junctions, bilateral gluteal areas, bilateral suboccipital muscle insertions SKIN Skin intact without rashes. Office Procedures AMB Joint Injection/Aspiration Joint Injection/Aspiration Details: Procedure was explained to the patient and consent was obtained. ? The right knee was identified and confirmed with patient. ?This was subsequently cleaned with chlorhexidine x3. ? The area was then anesthetized using ethyl chloride spray. 2cc Euflexxa was injected without issue. ?Minimal to no bleeding. ?Patient tolerated procedure. The procedure was repeated with the left knee. Primary Site: right knee Secondary Site: left knee Prep: site was prepped using aseptic technique and ethochloride spray was applied Injected: in the joint and other (2cc Euflexxa) Approach Used: anterior Procedure: The patient tolerated the procedure well Coding 24926 - Bilateral Large Joint Procedure code (CPT) selection complete Office Meds Euflexxa 10 mg/mL (mw 2.4-3.6 million) intra-articular syringe Performing Provider: Minal Chapman MD Performing Location: [facility] Administered by: Minal Chapman MD on 01/31/25 09:06 Dose Route Admin Location Dispensed Lot Number Expiration Date NDC [employer] Inspector 20 mg intra-articular right and left knee 2 mL [id number] 09/24/25 [address]-2 [facility] Results Reviewed Results Reviewed: Laboratory Tests 12/27/24 09:30 WBC 7.7 RBC 4.40 Hgb 12.5 Hct 38.6 Plt Count 295 ESR 41 H Sodium 143 Potassium 4.7 Chloride 109 H Carbon Dioxide 25 BUN 42 H Creatinine 1.37 Total Bilirubin 0.4 AST 27 ALT 17 Alkaline Phosphatase 76 C-Reactive Protein 1.04 H Left Knee XR 06/2021 FINDINGS: A single sunrise view left knee reveals loss of lateral compartment patellofemoral joint space with lateral patellar enthesophyte. No loose bodies or bony erosive changes seen. The soft tissues are normal. IMPRESSION: Mild degenerative changes lateral patellofemoral compartment with lateral patellar periarticular spurring. FINDINGS: 4 mm calcified density seen adjacent to the medial tibial spine has been present previously and appears to represent a loose body. Linear calcification is present about the anterior lateral soft tissues of the knee. There are vascular calcifications present. There is some calcification about the medial femoral condyle which may be related to previous medial collateral ligament injury. There is also some calcification about the lateral aspect of the patella which was not definitely seen previously and may be related to avulsion injury or spurring. No knee effusion is appreciated. There is mild narrowing of the medial joint space compartment. IMPRESSION: No effusion of the left knee identified. Findings of probable loose body and other changes of question medial collateral ligament injury and either spur or avulsion injury about the patella. Assessment & Plan Assessment & Plan (1) Primary osteoarthritis of both knees: Code(s): M17.0 - Bilateral primary osteoarthritis of knee Plan: #Bilateral Knee OA s/p Euflexxa 3rd dose RTC 3 months for follow up of RA (2) Seropositive rheumatoid arthritis: Code(s): M05.9 - Rheumatoid arthritis with rheumatoid factor, unspecified Category: Medical Plan: #Seropositive RA Patient with seropositive erosive rheumatoid arthritis. Currently in remission Plan - Humira 40mg SC every other week - Leflunomide 10mg daily (3) Osteopenia: Comment: DEXA 10/2022: AP Spine 2.8, Left femur neck -1.1, Left femur 0.9. FRAX 16.6%/2.5% Code(s): M85.80 - Other specified disorders of bone density and structure, unspecified site Category: Medical Qualifiers: Osteopenia location: femoral neck Laterality: left Qualified Code(s): M85.852 - Other specified disorders of bone density and structure, left thigh Plan: #Osteopenia Osteopenia of the left femoral neck based on DEXA. Encouraged vitamin-D and una cium supplementation. Weight-bearing exercises. Repeat DEXA in 2024 Plan - Vitamin D supplementation - Encourage daily Ca intake - Weight bearing exercises - DEXA ordered (4) Encounter for monitoring leflunomide therapy: Code(s): Z51.81 - Encounter for therapeutic drug level monitoring; Z79.69 - penitentiary (current) use of other immunomodulators and immunosuppressants Plan: #Long-term leflunomide Discussed with patient the benefits and risks of leflunomide for managing the rheumatic condition Benefits include: - Reduced pain, maintenance of remission and reduction of flares Risks include: - GI upset especially diarrhea, skin rash, cytopenias, hepatotoxicity, weight loss, neuropathy Monitoring: ?CBC, BMP, LFTs, hepatitis B and C serologies (5) Long-term use of adalimumab: Code(s): Z79.620 - penitentiary (current) use of immunosuppressive biologic Category: Medical Plan: #Long-term use of TNF Inhibitors Discussed with the patient the benefits and risks of TNF inhibitors for the management of the rheumatic condition Benefits include reduce pain, maintenance of remission and reduction of flares as well as progression of the disease Risks include injection sites/infusion reactions, serious infections (such as bacterial infections, opportunistic infections), malignancy, delaminating syndromes, autoimmune phenomena, CHF exacerbations, palmar plantar psoriasis and cytopenias Recommended rotating injection sites, and holding medication during and for up to 1 week after resolution of a febrile illness or open skin wound (6) penitentiary use of drug: Code(s): Z79.899 - Other medical terminologist (current) drug therapy Category: Medical Plan: #Long-term leflunomide Discussed with patient the benefits and risks of leflunomide for managing the rheumatic condition Benefits include: - Reduced pain, maintenance of remission and reduction of flares Risks include: - GI upset especially diarrhea, skin rash, cytopenias, hepatotoxicity, weight loss, neuropathy Monitoring: ?CBC, BMP, LFTs, hepatitis B and C serologies Plan I spent 20 minutes reviewing the record and labs, seeing the patient, discussing the treatment plan and documenting in the medical record Orders: Orders Complete Blood Count Auto Diff 3 Months M05.9 - Rheumatoid arthritis with rheumatoid factor, unspecified Comprehensive Met. Panel 3 Months M05.9 - Rheumatoid arthritis with rheumatoid factor, unspecified C Reactive Protein 3 Months M05.9 - Rheumatoid arthritis with rheumatoid factor, unspecified AMB Joint Injection/Aspiration Today M17.0 - Bilateral primary osteoarthritis of knee Erythrocyte Sedimentation Rate 3 Months M05.9 - Rheumatoid arthritis with rheumatoid factor, unspecified Medications: New Euflexxa (sodium hyaluronate (viscosup)) 20 mg (2 mL) intra-articular ONCE 2 mL 0RF NS M17.0 - Bilateral primary osteoarthritis of knee Coding Level of Care Code Est Pt Level 3 (51941) Complex EM visit Add On G2211 Diagnoses Primary osteoarthritis of both knees M17.0 Seropositive rheumatoid arthritis M05.9 Osteopenia of neck of left femur M85.852 Osteopenia location: femoral neck Laterality: left Encounter for monitoring leflunomide therapy Z51.81; Z79.69 Long-term use of adalimumab Z79.620 medical terminologist use of drug Z79.899 CPT Codes Coding - 58700 - Bilateral Large Joint: 25104 - Bilateral Large Joint ([id number])
--- OUTSIDE RECORDS SUMMARY | 2025-01-31 07:53 | XMS_ITS | Encounter Summary ---
Author Organization [facility] Address [address] [place] [address] Phone Care Team Providers Care Estate Agent Name Role Phone Ellen Yan MD Primary Care Provider +1- [phone] Encounter Details Date Type Department Care Team (Late st Contact Info) Description 04/01/2022 Telephone [facility] [address] [place] [address] Jim Santiago MD [address] [place] [phone] Social History Tobacco Use Types Packs/Day Years [...] over the weekend. Pls call her at [phone] * Telephone Encounter - Kassi Sotelo - 04/01/2022 10:50 AM EDT Pt called, her insurance will not cover the script for joaquín. It needs a PA please advise Thank you documented in this encounter Plan of Treatment Upcoming Encounters Date Type Department Care Team (Late st Contact Info) Description 04/06/2025 1:00 PM EDT Office Visit [facility] [address] [place] [address] Sorin Carpio MD [address] [facility] [address] [place] [phone] documented as of this encounter Visit Diagnoses Not on filedocumented in this encounter Care Teams Estate Agent Relationship Specialty Start Date End Date Ellen Yan MD [address] [place] [address] PCP - General Internal Medicine 12/03/20 documented as of this encounter
--- OUTSIDE RECORDS SUMMARY | 2025-01-31 07:54 | XMS_ITS ---
Author Organization [facility] Address [address] [place] [address] Care Team Providers Care Events Administrative Assistant Name Role Phone Yuriy GARCIA, Lyndsay Primary Care Provider Bang Moore Unavailable [phone] Allergies Allergen (clinical drug ingredient) Drug/Non Drug [...] Problem History of polyp of colon (situation) (166960683) Personal history of colonic polyps (Z86.010) Active confirmed Problem Colon cancer screening (039047067) Colon cancer screening (Z12.11) Active confirmed Problem Preprocedural examination (653096698281623) Preprocedural examination (Z01.818) Active confirmed Vital Signs Blood pressure systolic 111 mm Hg 01/13/20 25 Blood pressure diastolic 11 mm Hg 025 Height 62 in 01/12/2025 Weight 230 lbs 01/12/2025 BMI 42.06 kg/m2 01/12/2025 Procedures Procedure Date Ordered Date Performed Result Body Sit e COLONOSCOPY 01/12/2025 N/A Encounters Encounter Location Date Provider Diagnosis [facility] [address] [place] [address] 01/12/2025 Bang Little Personal history of colonic [...] Provider Name:Bang Little , 04/17/2025 09:10:00 AM, [address] [place] [address], [id number], Progress Notes * PAOLA FRIEDMANDOB: [birth year] (74 yo F)Acc No.[id number]:01/12/2025 Progress Notes Patient:?PAOLA FRIEDMAN Provider:?Bang Little MD :1950???Age:74 Y???Sex:Female D ate:01/12/2025 Address:[address] [place] [address] [place] Pcp:Lyndsay Yan MD Subjective: * Chief Complaints: [...] any other significant abnormalities. * Medical History:?IDDM, [place] kimberlyn Cholesterol, Hypertension, Rheumatoid arthritis, Urinary incontinence- mild, GERD-neg EGD in 2000, Neg. colonoscopy in 2000 and 08/2010, Denies [place],CVA,Lung disease,renal disease, Bronchitis, Edema of ankles, Colonoscopy [...] for 04/17/25 at 9:10 ammiralax * Procedure Codes:?55040 DIAGN OSTIC COLONOSCOPY * Preventive Medicine:? ??Counseling:?Care [...] MD Date:? 025 Generated for Cristopher gomez/Ashwini/Nayan on:?01/31/2025 07:53 AM EDT
--- OUTSIDE RECORDS SUMMARY | 2025-01-31 07:54 | XMS_ITS | Encounter Summary ---
Author Organization [facility] Address [address] [facility] [address] [place] [address] Phone Care Team Providers Care Lemon Picker Name Role Phone Ellen Yan MD Primary Care Provider +1- [phone] Encounter Details Date Type Department Care Team ([facility] Contact Info) Description 04/24/2021 Documentation Only [facility] [address] [facility] [facility] [address] [place] [address] Meena Kemp MA Social History [...] Upcoming Encounters Date Type Department Care Team ([facility] Contact Info) Description 04/06/2025 1:00 PM EDT Office Visit [facility] [address] [place] [phone] Sorin Carpio MD [address] [facility] [address] [place] [address] documented as of this encounter [...] U/L Total Bilirubin 0.3 MG/DL eGFR Non-Afr Belizean 35 Total Protein, Serum 6.2 Blood 04/09/2021 [...] on filedocumented in this encounter Care Teams Lemon Picker Relationship Specialty Start Date End Date Ellen Yan MD [facility] [place] [address] PCP - General Internal Medicine 12/03/20 documented as of this encounter
--- OUTSIDE RECORDS SUMMARY | 2025-01-31 07:54 | XMS_ITS | Patient Health Record ---
Author Organization [facility] Address [address] [place] [address] Care Team Providers Care Fire Fighting Equipment Specialist Name Role Phone Yuriy GARCIA, Lyndsay Primary Care Provider Bang Moore Unavailable [phone] Allergies Allergen (clinical drug ingredient) Drug/Non Drug [...] Status Risk Notes Problem Colon cancer screening (969430644) Colon cancer screening (Z12.11) Active confirmed Problem 73807712 Epigastric abdominal pain (R10.13) Active confirmed Problem 983461094 History of adenomatous polyp of colon (Z86.010) Active confirmed Problem Diarrhea (73750720) Diarrhea (R19.7) Active con firmed Problem Change in bowel habit (27683649) Change in bowel habit (R19.4) Active confirmed Problem History of polyp of colon (situation) (025435582) Personal history of colonic polyps (Z86.010) Active confirmed Problem 51947804 Calculus of gallbladder without cholecystitis without obstruction (K80.20) Active confirmed Problem 317327159 Gastroesophageal reflux disease without esophagitis (K21.9) Active confirmed Problem Preprocedural examination (316586764522477) Preprocedural examination (Z01.818) Active confirmed Problem 58242568 Diarrhea, unspecified type (R19.7) Active confirmed Problem 952266044 RUQ abdominal pa in (R10.11) Active confirmed Problem 337361387 RUQ pain (R10.11) Active confirmed Problem 239516492 Left renal mass (N28.89) Active confirmed Problem 22833356717707647 Abnormal ultrasound of left kidney (R93.422) Active confirmed Vital Signs Blood pressure diastolic 11 mm Hg 01/12/2025 Height 62 in 01/12/2025 Blood pressure systolic 111 mm Hg 01/12/2025 Weight 230 lbs 01/12/2025 BMI 42.06 kg/m2 01/12/2025 Procedures Procedure Date Ordered Date Performed Result Body Sit e COLONOSCOPY 01/12/2025 N/A Encounters Encounter Location Date Provider Diagnosis [facility] [address] [facility] [address] [place] [address] 01/12/2025 Bang Little Personal history of colonic [...] again for allowing me to participate in Paloa's care. I shall continue to keep you [...] Provider Name:Bang Little , 04/17/2025 09:10:00 AM, [address] [place] [address] , [place], [place], [id number], Insurance Providers Payer Name Payer Address Payer Phone Subscriber Number Group Number Insured Name Patient Relationship to Insured Coverage Start Date Coverage End Date [employer] [facility] [address] [place] [address] [id number] ELDER PAOLA Self - patient is the insured Medical (General) History Medical History History ICD Code IDDM Elevated Cholesterol Hypertension Rheumatoid arthritis Urinary incontinence- mild GERD-neg EGD in 2000 Neg. colonoscopy in 2000 and 08/2010 Denies [place],CVA,Lung disease,renal disease Bronchitis Edema of ankles Colonoscopy [...]
--- OUTSIDE RECORDS SUMMARY | 2025-01-31 07:54 | XMS_ITS | Clinical Summary ---
Author Organization [facility] Address [address] [facility] [address] [place] [address] Phone Care Team Providers Care Director Hematology Name Role Phone Ellen Yan MD Primary Care Provider +1- [phone] Allergies Active Allergy Reactions Criticality Noted Date [...] Orders Only [facility] [address] [place] [address] Sorin Carpio [...] [facility] [address] [place] [address] Sorin Carpio MD [address] [facility] [address] [place] [address] Health Maintenance Due Date Last [...] AM EDT) Hemoglobin A1C 7.2(H) (4.0-5.6) % [facility] Comment: MONITORING: In known diabetic patients, hemoglobin A1c targets should be discussed with health care provider. DIAGNOSTIC USE: ??The [place] Diabetes Association (ADA) and the World Health [...] Supplement 1 Testing performed or reported by [facility], a Service of [facility], [address] [place] [address] Lamont Ortega MD, Resume Writer [facility]# [id number] Blood (Blood, Venous) 02/04/2023 10:21 AM EDT 02/04/2023 10:34 AM EDT Jim Santiago MD LAB BLOOD ORDERABLES Final Re sult [facility] from Last 3 Months or Most Recently Relevant to Health Maintenance Insurance [employer] Care Teams Director Hematology Relationship Specialty Start Date End Date Ellen Yan MD [address] [facility] [place] [address] PCP - General Internal Medicine 12/03/20
[2025-01-31 07:58] VITALS: BP 142/70; PULSE 74; O2SAT 96; BMI 42.1
== END 2025-01-31 08:15 | disposition home or self-care (01) ==
PROVIDERS: PCP Internal Medicine; Visit Provider Student in an Organized Health Care Education/Training Program
DX: M17.0 Bilateral primary osteoarthritis of knee (principal); M05.79 Rheumatoid arthritis with rheumatoid factor of multiple sites without organ or systems involvement; M85.852 Other specified disorders of bone density and structure, left thigh; Z51.81 Encounter for therapeutic drug level monitoring; Z79.69 Long term (current) use of other immunomodulators and immunosuppressants; Z79.620 Long term (current) use of immunosuppressive biologic; Z79.899 Other long term (current) drug therapy
CPT/HCPCS: 20610; 99213

== ENCOUNTER → 2025-01-31 07:50 | Outpatient (BNVA) | payer MEDICARE, SELFPAY | PROVIDERS: PCP Internal Medicine; Visit Provider Student in an Organized Health Care Education/Training Program | DX: M17.0 Bilateral primary osteoarthritis of knee (principal); M85.852 Other specified disorders of bone density and structure, left thigh; M05.9 Rheumatoid arthritis with rheumatoid factor, unspecified; E11.40 Type 2 diabetes mellitus with diabetic neuropathy, unspecified; E11.22 Type 2 diabetes mellitus with diabetic chronic kidney disease; N18.32 Chronic kidney disease, stage 3b; Z51.81 Encounter for therapeutic drug level monitoring; Z79.69 Long term (current) use of other immunomodulators and immunosuppressants; Z79.899 Other long term (current) drug therapy | CPT/HCPCS: 20610; 99212; J7323 ==

== ENCOUNTER 2025-02-10 09:47 | Outpatient (REF) | payer MEDICARE, SELFPAY ==
--- NOTE | ~2025-02-10 | MM_ITS ---
EXAMINATION: DXA BONE DENSITY AXIAL HISTORY: M81.0 - Age-related osteoporosis without current pathological fracture TECHNIQUE: Belly Ballot Dual energy absorptiometry (DEXA) of the lumbar spine, total left hip, and femoral neck was performed. COMPARISON: Comparison is made with the prior examination dated 11/11/2022. FINDINGS: The bone mineral density of the lumbar spine is 1.468 with a T-score of 2.5, and a Z-score of 3.1. This is indicative of normal bone mineral density. This represents a BMD change of -2.3% compared to the prior exam. This is statistically significant. The bone mineral density of the left total hip is 1.066 with a T-score of 0.5, and a Z-score of 1.3. This is indicative of normal bone mineral density.- This represents a BMD change of 4.8% compared to the prior exam. This is statistically significant. The bone mineral density of the left femoral neck is 0.936 with a T-score of -0.7, and a Z-score of 0.4. This is indicative of normal bone mineral density. This represents a BMD change of 6.1% compared to the prior exam. FRACTURE RISK: The FRAX index suggests a ten year probability of major osteoporotic fracture of 155%, and of hip fracture 2.3%. MM/XR DEXA axial skeleton IMPRESSION: Based on bone mineral density, and according to World Health Organization (WHO) criteria, the diagnosis is consistent with normal bone mineral density. All bone density values are in grams per centimeter squared (g/cm2). Statistically, 68% of repeat scans fall within 1 SD (+/- 0.010 g/cm2 for AP spine L1-L4) and 1 SD (+/- 0.012 g/cm2 for femur total) FRAX is a trademark of the [employer] [place] for Metabolic Bone Disease, a World Health Organization (WHO) Collaborating Center. Electronically signed by: Bang Martin MD 02/10/2025 11:26 AM EDT
--- OUTSIDE RECORDS SUMMARY | 2025-02-10 10:33 | XMS_ITS | Encounter Summary ---
Author Organization [facility] Address [address] [facility] [address] [place] [address] Phone Care Team Providers Care Passementerie Worker Name Role Phone Ellen Yan MD Primary Care Provider +1- [phone] Encounter Details Date Type Department Care Team ([facility] Contact Info) Description 04/24/2021 Documentation Only [facility] [address] [facility] [address] [place] [address] Meena Kemp MA Social History [...] Upcoming Encounters Date Type Department Care Team ([facility] Contact Info) Description 04/06/2025 1:00 PM EDT Office Visit [facility] [address] [place] [address] Sorin Carpio MD [address] [facility] [address] [place] [address] documented as of this encounter [...] U/L Total Bilirubin 0.3 MG/DL eGFR Non-Afr [place] 35 Total Protein, Serum 6.2 Blood 04/09/2021 [...] on filedocumented in this encounter Care Teams Passementerie Worker Relationship Specialty Start Date End Date Ellen Yan MD [facility] [place] [address] PCP - General Internal Medicine 12/03/20 documented as of this encounter
--- OUTSIDE RECORDS SUMMARY | 2025-02-10 10:33 | XMS_ITS | Clinical Summary ---
Author Organization [facility] Address 100 [facility] 20 0 [place] [address] Phone Care Team Providers Care Jointer Machine Name Role Phone Ellen Yan MD Primary Care Provider +1- [phone] Allergies Active Allergy Reactions Criticality Noted Date [...] Orders Only [facility] [address] [place] [address] Sorin Carpio [...] Visit [facility] [address] [place] [address] Sorin Carpio MD [address] [facility] 204 [place] [address] Health Maintenance Due Date Last [...] with health care provider. DIAGNOSTIC USE: ??The [place] [employer] (ADA) and the World Health [...] Supplement 1 Testing performed or reported by [facility], a Service of [facility], [address] [place] [address] Lamont Ortega MD, Cattle Dipper [facility]# [id number] Blood (Blood, Venous) 02/04/2023 10:21 AM EDT 02/04/2023 10:34 AM EDT Jim Santiago MD LAB BLOOD ORDERABLES Final Re sult [facility] from Last 3 Months or Most Recently Relevant to Health Maintenance Insurance Tennga Tennga Care Teams Jointer Machine Relationship Specialty Start Date End Date Ellen Yan MD [address] [facility] [place] [address] PCP - General Internal Medicine 12/03/20
--- OUTSIDE RECORDS SUMMARY | 2025-02-10 10:33 | XMS_ITS | Encounter Summary ---
Author Organization [facility] Address [address] [place] [address] Phone Care Team Providers Care Legal Document Assistant Name Role Phone Ellen Yan MD Primary Care Provider +1- [phone] Encounter Details Date Type Department Care Team (Late st Contact Info) Description 04/01/2022 Telephone [facility] [address] [place] [address] Jim Santiago MD [address] [place] [phone] Social History Tobacco Use Types Packs/Day Years [...] over the weekend. Pls call her at [phone] * Telephone Encounter - Kassi Sotelo - 04/01/2022 10:50 AM EDT Pt called, her insurance will not cover the script for joaquín. It needs a PA please advise Thank you documented in this encounter Plan of Treatment Upcoming Encounters Date Type Department Care Team (Late st Contact Info) Description 04/06/2025 1:00 PM EDT Office Visit [facility] [address] [place] [address] Sorin Carpio MD [address] [facility] 204 [place] [phone] documented as of this encounter Visit Diagnoses Not on filedocumented in this encounter Care Teams Legal Document Assistant Relationship Specialty Start Date End Date Ellen Yan MD [address] [place] [address] PCP - General Internal Medicine 12/03/20 documented as of this encounter
== END 2025-02-10 09:48 | disposition home or self-care (01) ==
LOC: HO.MAMMO 09:47
PROVIDERS: PCP Internal Medicine; Visit Provider Student in an Organized Health Care Education/Training Program
DX: M81.0 Age-related osteoporosis without current pathological fracture (principal)
CPT/HCPCS: 77080

== ENCOUNTER → 2025-02-10 10:00 | Outpatient (BNV) | payer MEDICARE, SELFPAY | PROVIDERS: PCP Internal Medicine; Visit Provider Radiology Diagnostic Radiology | DX: E28.39 Other primary ovarian failure (principal) | CPT/HCPCS: 77080 ==

== ENCOUNTER 2025-02-24 09:26 | Outpatient (AMB) | payer MEDICARE, SELFPAY ==
[2025-02-24 09:32] VITALS: BP 160/64; PULSE 69; O2SAT 93; BMI 41.6
--- NOTE | 2025-02-24 09:32 | MHC.OFFVIS ---
Vital Signs 02/24/25 09:32 Height 5 ft 2 in Weight 227 lb 4.745 oz BMI 41.6 BP 160/64 H Blood Pressure Location Lt brachial Position Sitting Pulse 69 Pulse Source Pulse Oximeter Pulse Oximetry (%) 93 Oxygen Delivery Method Room Air Intake Visit Reasons: DM Intake Note: Patient present today for Type 2 Diabetes Mellitus Last Diabetic eye exam: 2023 Last Podiatry Visit: Doesn't have one Random Glucose: 81 mg/dl HgA1C: 6.8% Residential Building Inspector Required: No Accompanied by: Self / Same As Patient Allergies codeine [Codeine] Allergy (Severe, Verified 02/24/25 09:37) DIFFICULTY BREATHING Penicillins Adverse Reaction (Intermediate, Verified 02/24/25 09:37) stomach upset semaglutide [From Ozempic] Adverse Reaction (Verified 02/24/25 09:37) Vomiting Medication List - Last Reconciled 02/24/25 by Lucita Mckenzie PA-C adalimumab (Humira(CF) Pen) 40 mg (0.4 mL) subcut Q2W 56 days albuterol sulfate 90 mcg/actuation 2 puffs inhalation Q6H PRN azithromycin 500 mg PO DAILY 5 days blood sugar diagnostic (textPlusTouch Ultra Test strips) USE 3 TIMES DAILY blood-glucose sensor ([employer] G7 Sensor device) CHANGE EVERY 10 DAYS DIRECTED blood-glucose,call center support representative,cont (Dexcom G7 Production Staff Worker) As directed [id number] 160-9-4.8 mcg/actuation (Breztri Aerosphere) 2 inhalations inhalation BID 30 days bumetanide 1 mg PO DAILY cholecalciferol (vitamin D3) 50 mcg PO DAILY coQ10 (ubiquinol) (Qunol Meng CoQ10) 100 mg PO BID gabapentin (Neurontin) 300 mg PO BEDTIME insulin lispro (Humalog U-100 Insulin) Inject up to 80 units with patch pump daily subcutaneously daily; lansoprazole (Prevacid 24Hr) 15 mg PO DAILY leflunomide 10 mg PO DAILY pen needle, diabetic (Novofine 32) Use daily As directed for insulin pen needle, diabetic (BD Ultra-Fine Opal Pen Needle) Use 4x a day As directed pravastatin 40 mg PO BEDTIME sub-q insulin device, 40 unit (V-GO 40 device) USE DIRECTED Toujeo Max U-300 SoloStar (insulin glargine U-300 conc) 44 units (0.1467 mL) subcut DAILY 30 days NS HPI HPI DM: Details: Patient is a 74 yo female with DM type 2 diagnosed in her early 40s who presents for continued management of diabetes. She has a significant past medical history of clear cell renal carcinoma, chronic kidney disease, rheumatoid arthritis, hyperlipidemia and diabetes. -she sees Dr. Dave for management of her hypercalcemia, believes it is related to the parathyroid gland. DM: Her A1c is 6.8 today. She is on toujeo 44 units and humalog sliding scale CGM-average glucose 176, 95% usage, gmi 7.5. Very hyperglycemic 4%, hyperglycemic 36%, in range 60%, hypoglycemic 0% Micro and macrovascular complications: neuropathy, proliferative retinopathy, nephropathy but no macrovascular disease. 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 Has also met with a dietitian Fiberglass Grinder: Up-to-date Ophthalmology evaluation: ou proliferative diabetic retinopathy, goes twice a year for evaluation Nephro: Follows closely with Nephrology and Urology. She does have a history of renal cell carcinoma. CV: Blood pressure today in the office is 160/64. She is on lisinopril 20 mg daily. Cholesterol is controlled with pravastatin 40 mg. [facility] Medical History (Updated 12/28/24 @ 21:46 by Ted Whittington MD) Chronic bronchitis Adalimumab (Humira) long-term use Osteoarthritis of left knee Hyperparathyroid bone disease Hypogammaglobulinemia Trochanteric bursitis of both hips Leg pain, bilateral Herpes zoster vaccination declined COVID-19 vaccine dose declined Diabetic retinopathy Tubular adenoma of colon Osteopenia History of severe acute respiratory syndrome coronavirus 2 (SARS-CoV-2) disease Obesity due to excess calories 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 Postlaminectomy syndrome MGUS (monoclonal gammopathy of unknown significance) 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 mellitus) Diabetic retinopathy associated with type 2 diabetes mellitus CKD (chronic kidney disease) stage 3, GFR 30-59 ml/min 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 GERD (gastroesophageal reflux disease) Type 2 diabetes mellitus with diabetic polyneuropathy Essential hypertension Dyslipidemia Surgical History Hx of colonoscopy Hx laparoscopic cholecystectomy Hx of tonsillectomy Hx of cataract surgery History of back surgery Family History Mother Diabetes CVD (cardiovascular disease) HTN (hypertension) Father Hodgkin disease Brother Hodgkin disease Sister Pancreatic cancer Sister Lung cancer Non-Hodgkin lymphoma Paternal Uncle Colon cancer Social History Household Members: None Housing: Condominium Alcohol intake: never Patient Tobacco Use Status: Former Tobacco user Tobacco use type: Cigarette Cigarettes Per Day: 50 Years Smoked: 20 e-Cigarette/Vaping Use: Never Used Advance Directives Date on File: 02/08/22 service: No Current occupational status: retired Cognitive needs: No Hearing needs: No Vision needs: Yes Physical Exam Vital Signs: Last Vital Signs Pulse 69 02/24/25 09:32 BP 160/64 H 02/24/25 09:32 Pulse Ox 93 02/24/25 09:32 Oxygen Delivery Method Room Air 02/24/25 09:32 BMI result Body Mass Index 41.6 Const Orientation/consciousness: patient oriented x3 Neck Neck: Yes no lymphadenopathy Thyroid: Thyroid normal Carotids: no bruits Resp Auscultation: clear to auscultation bilaterally Cardio Rate: regular rate Rhythm: regular rhythm Heart sounds: S1 normal heart sound present and S2 normal heart sound present Peripheral pulses: dorsalis pedis present Neuro General: patient oriented x3, gait normal and no focal motor deficits Extrem Other: Monofilament sensation intact bilaterally. Vibratory sensation absent bilaterally. Skin intact. General: Yes normal to inspection Results AMB Hemoglobin A1c AMB Hemoglobin A1c 6.8 % Last Edit by CARMITA Menezes on 02/24/25 09:49 Results Reviewed Results Reviewed: Laboratory Last Values Glucose (Clinic) 81 mg/dL (60-115) 02/24/25 09:38 Assessment & Plan Assessment & Plan (1) Type 2 diabetes mellitus with diabetic polyneuropathy: Code(s): E11.42 - Type 2 diabetes mellitus with diabetic polyneuropathy Category: Medical Qualifiers: Diabetes mellitus alf insulin use: with alf use Qualified Code(s): E11.42 - Type 2 diabetes mellitus with diabetic polyneuropathy; Z79.4 - [facility] (current) use of insulin Plan: increase toujeo to 50 units continue sliding scale does not want to consider mounjaro (2) 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 Increase lisinopril to 30 mg. Does have an upcoming appointment with Nephrology next month. States that she will have it rechecked then in contact her PCP to possibly be seen for a sooner appointment to monitor blood pressure. I will also recheck it at our follow up. Orders: Orders Hemoglobin A1c Today E11.42 - Type 2 diabetes mellitus with diabetic polyneuropathy, I10 - Essential (primary) hypertension, R73.01 - Impaired fasting glucose, Z79.4 - [facility] (current) use of insulin Lipid Panel Today E11.42 - Type 2 diabetes mellitus with diabetic polyneuropathy, I10 - Essential (primary) hypertension, Z79.4 - [facility] (current) use of insulin AMB Hemoglobin A1c Today E11.42 - Type 2 diabetes mellitus with diabetic polyneuropathy, Z13.9 - Encounter for screening, unspecified, Z79.4 - [facility] (current) use of insulin Comprehensive Met. 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 Medications: New lisinopril 30 mg PO DAILY 90 tabs 0RF Changed From Toujeo Max U-300 SoloStar (insulin glargine U-300 conc) 44 units (0.1467 mL) subcut DAILY 30 days 6 mL 11RF NS To Toujeo Max U-300 SoloStar (insulin glargine U-300 conc) 50 units (0.1667 mL) subcut DAILY 30 days 6 mL 11RF NS Coding Level of Care Code Est Pt Level 4 (12931) Complex EM visit Add On G2211 Diagnoses Type 2 diabetes mellitus with diabetic polyneuropathy, with long-term current use of insulin E11.42; Z79.4 Diabetes mellitus bleach liquor maker insulin use: with alf use 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
[2025-02-24 09:42] LABS: Glucose, Whole Blood 81 mg/dL (60-115)
--- OUTSIDE RECORDS SUMMARY | 2025-02-24 09:44 | XMS_ITS | Encounter Summary ---
Author Organization [facility] Address [address] [facility] 200 [place] [address] Phone Care Team Providers Care Aerospace Control And Warning Systems Name Role Phone Ellen Yan MD Primary Care Provider +1- [phone] Encounter Details Date Type Department Care Team ([facility] Contact Info) Description 04/24/2021 Documentation Only [facility] [address] [facility] [address] [place] [address] Meena Kemp MA Social History [...] Upcoming Encounters Date Type Department Care Team ([facility] Contact Info) Description 04/06/2025 1:00 PM EDT Office Visit [facility] [address] [place] [address] Sorin Carpio MD [address] [facility] 204 [place] [address] documented as of this encounter [...] U/L Total Bilirubin 0.3 MG/DL eGFR Non-Afr Monegasque 35 Total Protein, Serum 6.2 Blood 04/09/2021 [...] on filedocumented in this encounter Care Teams Aerospace Control And Warning Systems Relationship Specialty Start Date End Date Ellen Yan MD [facility] [place] [address] PCP - General Internal Medicine 12/03/20 documented as of this encounter
--- OUTSIDE RECORDS SUMMARY | 2025-02-24 09:44 | XMS_ITS ---
Author Organization [facility] Address [address] [place] [address] Care Team Providers Care Wool Hat Sanding Machine Operator Name Role Phone Yuriy GARCIA, Lyndsay Primary Care Provider Bang Moore Unavailable [phone] Allergies Allergen (clinical drug ingredient) Drug/Non Drug [...] Problem History of polyp of colon (situation) (439902396) Personal history of colonic polyps (Z86.010) Active confirmed Problem Colon cancer screening (Z12.11) Active confirmed Problem Preprocedural examination ([id number]) Preprocedural examination (Z01.818) Active confirmed Vital Signs Blood pressure systolic 111 mm Hg 01/13/20 25 Blood pressure diastolic 11 mm Hg 025 Height 62 in 01/12/2025 Weight 230 lbs 01/12/2025 BMI 42.06 kg/m2 01/12/2025 Procedures Procedure Date Ordered Date Performed Result Body Sit e COLONOSCOPY 01/12/2025 N/A Encounters Encounter Location Date Provider Diagnosis [facility] [address] [facility] [address] [place] [phone] 01/12/2025 Bang Little Personal history of colonic polyps Z86.010 ; Preprocedural examination Z01.818 and Colon cancer screening Z12.11 Assessments Encounter Date Diagnosis (ICD Code) Assessment [...] Provider Name:Bang Little , 04/17/2025 09:10:00 AM, [address] [place] [address], [id number], Progress Notes * PAOLA FRIEDMANDOB: [birth year] (74 yo F)Acc No.[id number]:01/12/2025 Progress Notes Patient:?PAOLA FRIEDMAN Provider:?Bang Little MD :1950???Age:74 Y???Sex:Female D ate:01/12/2025 Address:[address] [place], [place] [id number] Pcp:Lyndsay Yan MD Subjective: * Chief Complaints: * ???Patient presents today fo r a colon screening * HPI: ???incontinence:? I saw Paola in [...] cancer or any other significant abnormalities. * ROS:?General/Constitutional:?Change in appetite?denies.?Chills?denies.?Fatigue?denies.?Ophthalmologic:?Comments?all negative.?ENT:?Comments?all negative.?Respiratory:?hemoptysis?denies.?Cough?denies.?Cardiovascular:?Chest pain?denies.?Orthopnea?denies.?Gastrointestinal:?Comments?See HPI for details.?Genitourinary:?Hematuria?denies.?Dysuria?denies.?Musculoskeletal:?Painful joints? Arthritis pain: Knees, wrists, hands.?Weakness?denies.?Skin:?Itching?denies.?Rash?denies.?Neurologic:?Headache?denies.?Seizures?denies.?Psychiatric:?Comments?all negative.? * Medical History:? * Surgical History:?Back surge ry Cataract removal Tonsillectomy CCY by Dr Dickson 10/2019 * Hospitalization/Major Diagno stic Procedure:?No Hospitalization History. * Family History:?Father: dece ased.?Mother: , diagnosed [...] single. Occupation: retired. ???Nonsmoker; no alcohol. * Medications:?TakingHumira (2 Pen) 40 MG/0.4ML Auto-injector Kit 0.4 mL Subcutaneous , Notes to Pharmacist: every 2 weeksVitamin D 50 MCG (2000 UT) Tablet 1 tablet Orally Once a day Pravastatin Sodium 40 MG Tablet TAKE 1 TABLET BY MOUTH EVERY DAY Oral Bumetanide 1 MG Tablet TAKE 1 TABLET BY MOUTH EVERY DAY Oral Prevacid 15 MG Capsule Delayed Release 1 capsule Orally Once a day CoQ-10 100 MG Capsule 1 capsule with a meal Orally Once a day V-Go 40 - Kit as directed ProAir HFA 108 (90 Base) MCG/ACT Aerosol Solution 2 puffs as needed Inhalation every 6 hrs , Notes to Pharmacist: as neededLeflunomide 10 MG Tablet Oral Gabapentin 300 MG Capsule TAKE 1 CAPSULE BY MOUTH AT BEDTIME Oral Lisinopril 20 MG Tablet Oral Insulin Lispro 100 UNIT/ML Solution Injection Leflunomide 10 MG Tablet Oral Taking Humira (2 Pen) 40 MG/0.4ML Auto-injector Kit 0.4 mL Subcutaneous , Notes to Pharmacist: every 2 weeksTaking Vitamin D 50 MCG (2000 UT) Tablet 1 tablet Orally Once a day Taking Pravastatin Sodium 40 MG Tablet TAKE 1 TABLET BY MOUTH EVERY DAY Oral Taking Bumetanide 1 MG Tablet TAKE 1 TABLET BY MOUTH EVERY DAY Oral Taking Prevacid 15 MG Capsule Delayed Release 1 capsule Orally Once a day Taking CoQ-10 100 MG Capsule 1 capsule with a meal Orally Once a day Taking V-Go 40 - Kit as directed Taking ProAir HFA 108 (90 Base) MCG/ACT Aerosol Solution 2 puffs as needed Inhalation every 6 hrs , Notes to Pharmacist: as neededTaking Leflunomide 10 MG Tablet Oral Taking Gabapentin 300 MG Capsule TAKE 1 CAPSULE BY MOUTH AT BEDTIME Oral Taking Lisinopril 20 MG Tablet Oral Taking Insulin Lispro 100 UNIT/ML Solution Injection Taking Leflunomide 10 MG Tablet Oral Not-Taking/PRNAspirin Adult Low Dose 81 MG Tablet Delayed Release 1 tablet Orally Once a day sulfaSALAzine 500 MG Tablet Delayed Release TAKE 1 TABLET BY MOUTH EVERY 12 HOURS Oral Toujeo Max SoloStar 300 UNIT/ML Solution Pen-injector INJECT 40 UNIT (0.1333 ML) SUBCUTANEOUSLY BEDTIME Subcutaneous Not-Taking/PRN Aspirin Adult Low Dose 81 MG Tablet Delayed Release 1 tablet Orally Once a day Not-Taking/PRN sulfaSALAzine 500 MG Tablet Delayed Release TAKE 1 TABLET BY MOUTH EVERY 12 HOURS Oral Not-Taking/PRN Toujeo Max SoloStar 300 UNIT/ML Solution Pen-injector INJECT 40 UNIT (0.1333 ML) SUBCUTANEOUSLY BEDTIME Subcutaneous DiscontinuedLoCalnesium 166.67-83.33 MG Tablet as directed Orally HumaLOG 100 UNIT/ML Solution UP TO 80 UNITS VIA V-GO 40 DAILY SUBCUTANEOUS 30 DAYS Subcutaneous Calcium 600 MG Tablet 1 tablet with meals Orally Twice a day Tylenol Extra Strength 500 MG Tablet 1 tablet as needed Orally every 6 hrs , Notes to Pharmacist: as neededNeurontin 300 MG Capsule 1 capsule Orally Once a day Medication List reviewed and reconciled with the patientDiscontinued LoCalnesium 166.67-83.33 MG Tablet as directed Orally Discontinued HumaLOG 100 UNIT/ML Solution UP TO 80 UNITS VIA V-GO 40 DAILY SUBCUTANEOUS 30 DAYS Subcutaneous Discontinued Calcium 600 MG Tablet 1 tablet with meals Orally Twice a day Discontinued Tylenol Extra Strength 500 MG Tablet 1 tablet as needed Orally every 6 hrs , Notes to Pharmacist: as neededDiscontinued Neurontin 300 MG Capsule 1 capsule Orally Once a day Medication List reviewed and reconciled with the patient * Allergies:?Codeine SulfateOz empicyes[Allergies Verified] Objective: * Vitals:?Wt: 230 lbs, Ht: 62 in, BMI: 42.06 Index, BP: 111/11 mm Hg, Wt-k.33. * Examination: ???General Examination: ?GENERAL APPEARANCE:?pleasant, well nourished, well developed, in no acute distress.?EYES:?sclera non-icteric.?ORAL CAVITY:?mucosa moist.?NECK/THYROID:?no cervical lymphadenopathy, neck supple.?SKIN:?nonjaundiced, no spider angiomata.?HEART:?S1, S2 normal.?LUNGS:?clear to auscultation bilaterally.?ABDOMEN:?normal bowel sounds, no guarding or rigidity, no guarding or rigidity, no masses palpable, soft, nontender, nondistended.?EXTREMITIES:?no edema.?NEUROLOGIC:?alert and oriented.? Assessment: * Assessment: 1.?Preprocedural examination - Z01.818 (Primary)???2.?Personal history of colonic polyps - Z86.010???3.?Colon cancer screening - Z12.11??? Overall, Paola appears wel l and is [...] for 04/17/25 at 9:10 ammiralax * Procedure Codes:?96893 DIAGN OSTIC [id number] COLORECTAL CA SCREEN DOC [id number] TOBACCO [id number] BP SCR NOT PRFRM REC REASON [id number] RCMND FLW-UP 10 YRS DOCD * Preventive Medicine:? ??Counseling:?Care goal follow-up plan:?Above Normal BMI Follow-up?Giving encouragement to exercise,?BMI management provided?Yes.? ??Urinary Incontinence:?Urinary Incontinence?Assessment:?Absent,?Plan of care documented:?No, reason not specified.? ??Screenings:?Fall Risk Screening?Fall Risk Assessment:?No falls in the past year,?Screening:?No falls in the past year,?Assessment:?Not performed, no reason specified,?Plan of Care:?Not documented, no reason specified.? * * Sign off status: Completed true * Provider:?Bang Little MD Date:? 025 Generated for Cristopher gomez/Ashwini/Nayan on:?02/24/2025 09:44 AM EDT History and Physical Notes * Examination Category Sub-Category Detail Notes Category Not es General Examination GENERAL APPEARANCE: pleasant , well nourished, well developed, in no acute distress HEAD: EYES: sclera non-icteric EARS: NOSE: THROAT: NECK/THYROID: no cervical lymphade nopathy, neck supple HEART: S1, S2 normal CHEST: LUNGS: clear to auscultatio n bilaterally ABDOMEN: normal bowel sounds, no guarding or rigidity, no guarding or rigidity, no masses palpable, soft, nontender, nondistended NEUROLOGIC: alert and oriented SKIN: nonjaundiced, no spi sidney angiomata EXTREMITIES: no edema PERIPHERAL PULSES: BACK: BREASTS: MUSCULOSKELETAL: MALE GENITOURINARY: LYMPH NODES: RECTAL EXAM: FEMALE GENITOURINARY: ORAL CAVITY: mucosa moist
--- OUTSIDE RECORDS SUMMARY | 2025-02-24 09:44 | XMS_ITS | Patient Health Record ---
Author Organization [facility] Address [address] [place] [address] Care Team Providers Care Real Estate Closing Coordinator Name Role Phone Yuriy GARCIA, Lyndsay Primary Care Provider Bang Moore Unavailable [phone] Allergies Allergen (clinical drug ingredient) Drug/Non Drug [...] Status Risk Notes Problem Colon cancer screening (Z12.11) Active confirmed Problem 34154683 Epigastric abdominal pain (R10.13) Active confirmed Problem 281494082 History of adenomatous polyp of colon (Z86.010) Active confirmed Problem Diarrhea (05352259) Diarrhea (R19.7) Active con firmed Problem Change in bowel habit (11043342) Change in bowel habit (R19.4) Active confirmed Problem History of polyp of colon (situation) (375690072) Personal history of colonic polyps (Z86.010) Active confirmed Problem 18172204 Calculus of gallbladder without cholecystitis without obstruction (K80.20) Active confirmed Problem 734634299 Gastroesophageal reflux disease without esophagitis (K21.9) Active confirmed Problem Preprocedural examination (547159589766703) Preprocedural examination (Z01.818) Active confirmed Problem 83295989 Diarrhea, unspecified type (R19.7) Active confirmed Problem 228692146 RUQ abdominal pa in (R10.11) Active confirmed Problem 508628922 RUQ pain (R10.11) Active confirmed Problem 477298204 Left renal mass (N28.89) Active confirmed Problem 78686781673386125 Abnormal ultrasound of left kidney (R93.422) Active confirmed Vital Signs Blood pressure diastolic 11 mm Hg 01/12/2025 Height 62 in 01/12/2025 Blood pressure systolic 111 mm Hg 01/12/2025 Weight 230 lbs 01/12/2025 BMI 42.06 kg/m2 01/12/2025 Procedures Procedure Date Ordered Date Performed Result Body Sit e COLONOSCOPY 01/12/2025 N/A Encounters Encounter Location Date Provider Diagnosis [facility] [address] [facility] [address] [place] [address] 01/12/2025 Bang Little Personal history of colonic [...] Provider Name:Bang Little , 04/17/2025 09:10:00 AM, [address] [place] [address] , [place], [id number], Insurance Providers Payer Name Payer Address Payer Phone Subscriber Number Group Number Insured Name Patient Relationship to Insured Coverage Start Date Coverage End Date [employer] [address] [place] [address] [id number] PAOLA Self - patient is the insured Medical (General) History Medical History History ICD Code IDDM Elevated Cholesterol Hypertension Rheumatoid arthritis Urinary incontinence- mild GERD-neg EGD in 2000 Neg. colonoscopy in 2000 and 08/2010 Denies [place],CVA,Lung disease,renal disease Bronchitis Edema of ankles Colonoscopy [...]
--- OUTSIDE RECORDS SUMMARY | 2025-02-24 09:44 | XMS_ITS | Encounter Summary ---
Author Organization [facility] Address [address] [place] [address] Phone Care Team Providers Care Steam Turbine Assembler Name Role Phone Ellen Yan MD Primary Care Provider +1- [phone] Encounter Details Date Type Department Care Team (Late st Contact Info) Description 04/01/2022 Telephone [facility] [address] [place] [address] Jim Santiago MD [address] [place] [address] Social History Tobacco Use Types Packs/Day Years [...] over the weekend. Pls call her at [phone] * Telephone Encounter - Kassi Sotelo - 04/01/2022 10:50 AM EDT Pt called, her insurance will not cover the script for joaquín. It needs a PA please advise Thank you documented in this encounter Plan of Treatment Upcoming Encounters Date Type Department Care Team (Late st Contact Info) Description 04/06/2025 1:00 PM EDT Office Visit [facility] [address] [place] [address] Sorin Carpio MD [address] [facility] [address] [place] [phone] documented as of this encounter Visit Diagnoses Not on filedocumented in this encounter Care Teams Steam Turbine Assembler Relationship Specialty Start Date End Date Ellen Yan MD [address] [place] [address] PCP - General Internal Medicine 12/03/20 documented as of this encounter
--- OUTSIDE RECORDS SUMMARY | 2025-02-24 09:44 | XMS_ITS | Clinical Summary ---
Author Organization [facility] Address [address] [facility] [address] [place] [address] Phone Care Team Providers Care Sql Server Architect Name Role Phone Ellen Yan MD Primary Care Provider +1- [phone] Allergies Active Allergy Reactions Criticality Noted Date [...] Orders Only [facility] [address] [place] [address] Sorin Carpio [...] Visit [facility] [address] [place] [address] Sorin Carpio MD [address] [facility] [address] [place] [address] Health Maintenance Due Date Last [...] AM EDT) Hemoglobin A1C 7.2(H) (4.0-5.6) % [facility] Comment: MONITORING: In known diabetic patients, hemoglobin A1c targets should be discussed with health care provider. DIAGNOSTIC USE: ??The [place] Diabetes Association (ADA) and the World Health [...] Supplement 1 Testing performed or reported by [facility], a Service of [facility], [address] [place] [address] Lamont Ortega MD, Value Analysis Coordinator [facility]# [id number] Blood (Blood, Venous) 02/04/2023 10:21 AM EDT 02/04/2023 10:34 AM EDT Jim Santiago MD LAB BLOOD ORDERABLES Final Re sult [facility] from Last 3 Months or Most Recently Relevant to Health Maintenance Insurance [place] Care Teams Sql Server Architect Relationship Specialty Start Date End Date Ellen Yan MD [address] [place] [address] PCP - General Internal Medicine 12/03/20
== END 2025-02-24 09:58 | disposition home or self-care (01) ==
LOC: HO.ENCR 09:31
PROVIDERS: PCP Internal Medicine; Visit Provider Physician Assistant
DX: Z13.9 Encounter for screening, unspecified (principal); E11.42 Type 2 diabetes mellitus with diabetic polyneuropathy; Z79.4 Long term (current) use of insulin; I10 Essential (primary) hypertension

== ENCOUNTER → 2025-02-24 09:26 | Outpatient (BNVA) | payer MEDICARE, SELFPAY | PROVIDERS: PCP Internal Medicine; Visit Provider Physician Assistant | DX: E11.42 Type 2 diabetes mellitus with diabetic polyneuropathy (principal); I10 Essential (primary) hypertension; Z79.4 Long term (current) use of insulin; Z79.899 Other long term (current) drug therapy | CPT/HCPCS: 82947; 83036; 99212 ==

== ENCOUNTER 2025-03-17 10:19 | Outpatient (REF) | payer MEDICARE, SELFPAY ==
--- NOTE | ~2025-03-17 | XR_ITS ---
EXAMINATION: XR KNEE, LEFT CLINICAL INFORMATION: M25.562 - Pain in left knee COMPARISON: 06/13/2021 TECHNIQUE: Four views of the left knee. FINDINGS: Moderate arterial calcifications are present in the thigh and lower leg, increased from the prior. Again noted is moderate narrowing of the medial joint space and minimal narrowing of the lateral. Small marginal osteophytes are present involving the tibial plateau. There is an enthesophyte involving superior patella at the quadriceps attachment. There is a new moderate-sized marginal osteophyte involving the inferior patella. Small marginal osteophyte is present involving posterior femoral condyle. There is no joint effusion. XR/XR knee LT 4V IMPRESSION: Wefj-kn-lbkllnuh osteoarthritis, most pronounced in the medial compartment. Increased from the prior. Increasing arterial vascular calcifications. Electronically signed by: Mateo Duenas MD 03/17/2025 11:51 AM EDT
== END 2025-03-17 10:20 | disposition home or self-care (01) ==
LOC: HO.HMGCX 10:19
PROVIDERS: PCP Internal Medicine; Visit Provider Physician Assistant
DX: M25.562 Pain in left knee (principal); G89.29 Other chronic pain; I10 Essential (primary) hypertension
CPT/HCPCS: 73564; 99212

== ENCOUNTER 2025-03-17 10:36 | Outpatient (AMB) | payer MEDICARE, SELFPAY ==
[2025-03-17 10:55] VITALS: BP 138/60; PULSE 83; RESP 16; TEMP 36.6; O2SAT 98; BMI 41.0
--- NOTE | 2025-03-17 10:55 | MHC.OFFWIV ---
Intake Vital Signs 03/17/25 10:55 Height 5 ft 2 in Weight 224 lb BMI 41.0 BP 138/60 Blood Pressure Location Lt brachial Position Sitting Respiration 16 Pulse 83 Pulse Source Pulse Oximeter Temp 97.9 F Temp Source Oral Pulse Oximetry (%) 98 Intake Visit Reasons: PE pain on LT knee specially when walking Intake Note: Pt is here today c/o Lt knee pain more with mobility: Denies any falls Patient Tobacco Use Status: Former Tobacco user Allergies codeine [Codeine] Allergy (Severe, Verified 03/17/25 11:03) DIFFICULTY BREATHING Penicillins Adverse Reaction (Intermediate, Verified 03/17/25 11:03) stomach upset semaglutide [From Ozempic] Adverse Reaction (Verified 03/17/25 11:03) Vomiting HPI HPI Comments History of Present Illness Details Patient is a 74yo F who presents to office with complaint of knee pain' L side She said ? meniscal tear a few years ago 3-4 days ago sudden pain when getting out of car No falls + giving out without falls Pain is intermittent Sitting 0/10 Worse with walking She has not tried anything for it She feels like L knee is swollen and iced it No redness 2020 had MRI of L knee which showed + meniscal medial tear. No surgery completed; [facility] seen She called them and cant be see until May 08 [facility] Medical History (Updated 03/17/25 @ 11:29 by Raegan Mcrae PA-C) Chronic bronchitis Adalimumab (Humira) long-term use Osteoarthritis of left knee Hyperparathyroid bone disease Hypogammaglobulinemia Trochanteric bursitis of both hips Leg pain, bilateral Herpes zoster vaccination declined COVID-19 vaccine dose declined Diabetic retinopathy Tubular adenoma of colon Osteopenia History of severe acute respiratory syndrome coronavirus 2 (SARS-CoV-2) disease Obesity due to excess calories 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 Postlaminectomy syndrome MGUS (monoclonal gammopathy of unknown significance) 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 mellitus) Diabetic retinopathy associated with type 2 diabetes mellitus CKD (chronic kidney disease) stage 3, GFR 30-59 ml/min alf (current) use of insulin GERD (gastroesophageal reflux disease) Type 2 diabetes mellitus with diabetic polyneuropathy Essential hypertension Dyslipidemia Surgical History Hx of colonoscopy Hx laparoscopic cholecystectomy Hx of tonsillectomy Hx of cataract surgery History of back surgery Family History Mother Diabetes CVD (cardiovascular disease) HTN (hypertension) Father Hodgkin disease Brother Hodgkin disease Sister Pancreatic cancer Sister Lung cancer Non-Hodgkin lymphoma Paternal Uncle Colon cancer Social History Household Members: None Housing: Condominium Alcohol intake: never Patient Tobacco Use Status: Former Tobacco user Tobacco use type: Cigarette Cigarettes Per Day: 50 Years Smoked: 20 e-Cigarette/Vaping Use: Never Used Advance Directives Date on File: 02/08/22 service: No Current occupational status: retired Cognitive needs: No Hearing needs: No Vision needs: Yes Review of Systems Const Denies chills and Denies fever(s) Resp Denies cough Musc Reports arthralgias, Reports joint swelling and Denies tingling Skin/Breast Denies erythema Neuro Denies tingling Physical Exam Vital Signs: Last Vital Signs Temp 97.9 F 03/17/25 10:55 Pulse 83 03/17/25 10:55 Resp 16 03/17/25 10:55 BP 138/60 03/17/25 10:55 Pulse Ox 98 03/17/25 10:55 BMI result Body Mass Index 41.0 General: Non-toxic, NAD. Speaking full sentences. Skin: Warm dry throughout. No obvious LLE edema, erythema or warmth to L knee or lower extremity Eye: EOMI Respiratory:No tachypnea Cardiac: No calf tenderness or pitting edema LLE MSK:+ full flexion/exention L knee. Pain with palpation of L medial joint without ttp lateral joint of patella. Neurology: Alert. No aphasia or facial droop. Gait without abnormality Assessment & Plan Assessment & Plan (1) Left knee pain: Code(s): M25.562 - Pain in left knee Qualifiers: Chronicity: chronic Qualified Code(s): M25.562 - Pain in left knee; G89.29 - Other chronic pain Plan: Patient seen and evaluated. Xray: chronic changes wthout acute fracture PEG wrap given Recommended ICE, elevate and tylenol prn. ALso discussed topical otc lidocaine gel Ortho referral given for hopfully sooner evaluation than April Patient gave verbal understanding and had no additional questions or concerns at time of discharge All questions answered Orders: Referrals Orthopedics Referral G89.29 - Other chronic pain, M25.562 - Pain in left knee Coding Level of Care Code Est Pt Level 3 (28375) Diagnoses Chronic pain of left knee M25.562; G89.29 Chronicity: chronic
== END 2025-03-17 11:35 | disposition home or self-care (01) ==
PROVIDERS: PCP Internal Medicine; Visit Provider Physician Assistant
DX: M25.562 Pain in left knee (principal); G89.29 Other chronic pain

== ENCOUNTER → 2025-03-17 11:16 | Outpatient (BNV) | payer MEDICARE, SELFPAY | PROVIDERS: PCP Internal Medicine; Visit Provider Radiology Diagnostic Radiology | DX: M17.12 Unilateral primary osteoarthritis, left knee (principal) | CPT/HCPCS: 73564 ==

== ENCOUNTER 2025-03-23 09:53 | Outpatient (REF) | payer MEDICARE, SELFPAY ==
--- OUTSIDE RECORDS SUMMARY | 2025-03-23 11:04 | XMS_ITS | Encounter Summary ---
Author Organization [facility] Address [address] [place] [address] Phone Care Team Providers Care Director Business Development Name Role Phone Ellen Yan MD Primary Care Provider +1- [phone] Encounter Details Date Type Department Care Team (Late st Contact Info) Description 04/01/2022 Telephone [facility] [address] [place] [address] Jim Santiago MD [address] [place] [address] Social History Tobacco Use Types Packs/Day Years [...] over the weekend. Pls call her at [phone] * Telephone Encounter - Kassi Sotelo - 04/01/2022 10:50 AM EDT Pt called, her insurance will not cover the script for joaquín. It needs a PA please advise Thank you documented in this encounter Plan of Treatment Upcoming Encounters Date Type Department Care Team (Late st Contact Info) Description 04/06/2025 1:00 PM EDT Office Visit [facility] [address] [place] [address] Sorin Carpio MD [address] [facility] [address] [place] [phone] documented as of this encounter Visit Diagnoses Not on filedocumented in this encounter Care Teams Director Business Development Relationship Specialty Start Date End Date Ellen Yan MD [address] [place] [address] PCP - General Internal Medicine 12/03/20 documented as of this encounter
[2025-03-23 13:15] LABS: Appearance Urine Clear; Color Urine Yellow; Glucose Urine UA Negative (Negative); Leukocyte Esterase Urine Trace (Negative); Nitrite Urine Negative (Negative); PH 5.5 (5.0-9.0); UMIC TRIGGER UA YES; Urine Blood Negative (Negative); Urine Ketones Negative (Negative); Urine Protein Negative (Neg-Trace)
[2025-03-23 13:19] LABS: Bacteria Urine Trace (None Seen); Hyaline Casts Urine 0-2 /LPF (0-2); RBC Urine 0-2 /HPF (0-2)
[2025-03-23 13:33] LABS: MANUAL DIFF FLAG NO
[2025-03-23 13:36] LABS: Basophils Absolute Auto 0.1 X10*3/uL (0.0-0.2); Basophils Percent Auto 1.1 % (0-2); Eosinophils Absolute Auto 0.3 X10*3/uL (0.0-0.4); Eosinophils Percent Auto 3.8 % (0-4); Hematocrit 40.1 % (37.0-47.0); Hemoglobin 12.5 g/dl (12.0-16.0); Imm Gran Abs Auto 0.05 X10*3/uL (0.00-0.03); Imm Gran Pct Auto 0.8 % (0.0-0.4); Lymphocytes Absolute Auto 1.2 X10*3/uL (1.2-4.9); Mean Corpuscular HGB Conc 31.2 g/dl (31.0-35.0); Mean Corpuscular Hemoglobin 27.4 pg (27.0-33.0); Mean Corpuscular Volume 87.9 fL (80.0-98.0); Monocytes Absolute Auto 0.6 X10*3/uL (0.1-1.2); Monocytes Percent Auto 9.7 % (2-11); Neutrophils Absolute Auto 4.3 x10*3/uL (2.0-8.3); Neutrophils Percent Auto 65.6 % (45-73); Platelet Count 278 X10*3/uL (160-400); Red Blood Count 4.56 X10*6/uL (4.20-5.50); Red Cell Distribution Width 14.7 % (11.0-16.0); White Blood Count 6.5 X10*3/uL (4.8-10.8)
[2025-03-23 13:48] LABS: Anion Gap 11 (12-20); Blood Urea Nitrogen 30 mg/dL (9-16); Calcium 9.3 mg/dL (8.4-10.2); Carbon Dioxide 26 mmol/L (22-29); Chloride 110 mmol/L (96-108); Estimated Glomerular Filt Rate 38; Glucose Random 115 mg/dL (60-115); Iron 54 mcg/dL (30-160); Magnesium 1.9 mg/dL (1.6-2.6); Percent Iron Saturation 21 % (15-50); Phosphorus 2.6 mg/dL (2.7-4.5); Potassium 4.3 mmol/L (3.3-5.1); Sodium 143 mmol/L (135-145); Total Iron Binding Capacity 253 mcg/dL (228-428); Unsaturated Iron Binding 199 ug/dL
[2025-03-23 13:51] LABS: Creatinine Urine 50.03 mg/dL; Microalbum/Creatinine Ratio Ur 11.9 ug/mg cr (<30); Total Protein Urine Random < 7 mg/dL (<12)
[2025-03-23 13:54] LABS: Estimated Average Glucose 148 mg/dL; Hemoglobin A1c % 6.8 % (<6.0)
[2025-03-23 14:12] LABS: Parathyroid Hormone Intact 214.7 pg/mL (8.7-77.1)
[2025-03-23 14:14] LABS: Ferritin 92 ng/mL (10-250)
[2025-03-23 14:15] LABS: Uric Acid 9.1 mg/dL (2.4-5.7)
[2025-03-23 14:22] LABS: Vitamin D 25-OH Total 36.4 ng/mL (>30)
[2025-03-28 09:00] LABS: eGFR (Cystatin C) 16 L
== END 2025-03-23 09:54 | disposition home or self-care (01) ==
LOC: HO.HMGCLDS 09:53
PROVIDERS: PCP Internal Medicine; Visit Provider Internal Medicine
DX: N18.30 Chronic kidney disease, stage 3 unspecified (principal)
CPT/HCPCS: 36415; 80048; 81001; 82043; 82306; 82570; 82610; 82728; 83036; 83540; 83735; 83970; 84100; 84156; 84550; 85025

== ENCOUNTER → 2025-03-31 09:50 | Outpatient (BNVA) | payer MEDICARE, SELFPAY | PROVIDERS: PCP Internal Medicine ==

== ENCOUNTER 2025-04-10 13:05 | Outpatient (AMB) | payer MEDICARE, SELFPAY ==
--- NOTE | 2025-04-10 13:08 | A.OFFVIS_ITS ---
Vital Signs 04/10/25 13:36 Height 5 ft 2 in Weight 224 lb BMI 41.0 Intake Visit Reasons: INJ-Lt knee f/u last inj 09/23/21 Intake Note: Paola is a 74 year odl female who presents today for a follow up of left knee, last injection on 09/23/21. Patient reports having bilateral knee pain with the right knee being the worse. She was recently seen at [facility] walk in clinic for her left knee pain. She was seen by Rheumatology and was administered with the series of Euflexxa injections in both knees in January of 2025. Allergies codeine (Codeine) Allergy (Severe, Verified 04/10/25 13:36) DIFFICULTY BREATHING Penicillins Adverse Reaction (Intermediate, Verified 04/10/25 13:36) stomach upset semaglutide (From Ozempic) Adverse Reaction (Verified 04/10/25 13:36) Vomiting HPI HPI INJ-Lt knee f/u last inj 09/23/21: Details: 74 yo female returns to the office today for a follow-up bilateral knee pain. She had previously seen me in September of 2021 where I aspirated her left knee and she had some relief with this. She has been following up with Rheumatology for steroid and gel injections. She was recently referred back to our office for further recommendations. Patient states her left knee is worse than the right at times where it feels like it wants to give out. [facility] Medical History (Updated 04/10/25 @ 13:45 by Rome Chirinos PA-C) Chronic bronchitis Adalimumab (Humira) long-term use Osteoarthritis of left knee Hyperparathyroid bone disease Hypogammaglobulinemia Trochanteric bursitis of both hips Leg pain, bilateral Herpes zoster vaccination declined COVID-19 vaccine dose declined Diabetic retinopathy Tubular adenoma of colon Osteopenia History of severe acute respiratory syndrome coronavirus 2 (SARS-CoV-2) disease Obesity due to excess calories 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 Postlaminectomy syndrome MGUS (monoclonal gammopathy of unknown significance) 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 mellitus) Diabetic retinopathy associated with type 2 diabetes mellitus CKD (chronic kidney disease) stage 3, GFR 30-59 ml/min FCI (current) use of insulin GERD (gastroesophageal reflux disease) Type 2 diabetes mellitus with diabetic polyneuropathy Essential hypertension Dyslipidemia Surgical History Hx of colonoscopy Hx laparoscopic cholecystectomy Hx of tonsillectomy Hx of cataract surgery History of back surgery Family History Mother Diabetes CVD (cardiovascular disease) HTN (hypertension) Father Hodgkin disease Brother Hodgkin disease Sister Pancreatic cancer Sister Lung cancer Non-Hodgkin lymphoma Paternal Uncle Colon cancer Social History Household Members: None Housing: Condominium Alcohol intake: never Patient Tobacco Use Status: Former Tobacco user Tobacco use type: Cigarette Cigarettes Per Day: 50 Years Smoked: 20 e-Cigarette/Vaping Use: Never Used Advance Directives Date on File: 02/08/22 service: No Current occupational status: retired Cognitive needs: No Hearing needs: No Vision needs: Yes Review of Systems Const All systems reviewed & are unremarkable except as noted in HPI and below Physical Exam Vital Signs: BMI result Body Mass Index 41.0 Extrem Other: bilat knee skin intact, no erythema or joint effusion. Tenderness along the medial joint line. ROM full with crepitus. Negative steinmans. No ligamentous laxity. NVI. Office Procedures AMB Joint Injection/Aspiration Joint Injection/Aspiration Primary Site: left knee Secondary Site: right knee Prep: site was prepped using aseptic technique, ethochloride spray was applied and injection warnings given Injected: 40 mg of, DepoMedrol, with 8 mL of, 1% plain lidocaine and in the joint Approach Used: anterolateral Procedure: The patient tolerated the procedure well and there was some relief with the local anesthesia Coding 45186 - Glenohumeral/Tronchanteric Bursa/Intraarticular Procedure code (CPT) selection complete Assessment & Plan Assessment & Plan (1) Osteoarthritis of knees, bilateral: Code(s): M17.0 - Bilateral primary osteoarthritis of knee Category: Medical Plan: We discussed options today, which include steroid injection. The patient did consent to move forward with bilat knee injection, which was tolerated well.? I recommended rest, ice and elevation and OTC antiinflammatories prn for discomfort. If symptoms persist over the next 6-8 weeks, they will contact our office, otherwise, prn We also discussed their diabetes and the effect the steroid can have on thier blood glucose levels; therefore, they will continue to monitor these very closely over the next 72 hours Medications: New diclofenac sodium 1% apply to single knee, ankle, foot; for foot includes sole/toes/top of foot 4 grams topical QID 100 grams 0RF 30 days Coding Level of Care Code New Pt Level 3 (39708) Complex EM visit Add On G2211 Diagnoses Osteoarthritis of knees, bilateral M17.0 CPT Codes Coding - Joint 7: 08347 - Glenohumeral/Tronchanteric Bursa/Intraarticular ([id number])
--- OUTSIDE RECORDS SUMMARY | 2025-04-10 13:31 | XMS_ITS | Patient Health Record ---
Author Organization [facility] Address [address] [place] [address] Care Team Providers Care Machine Bookkeeper Name Role Phone Yuriy GARCIA, Lyndsay Primary Care Provider Bang Moore Unavailable [phone] Allergies Allergen (clinical drug ingredient) Drug/Non Drug [...] Status Risk Notes Problem Colon cancer screening (905652425) Colon cancer screening (Z12.11) Active confirmed Problem 88501290 Epigastric abdominal pain (R10.13) Active confirmed Problem 622168237 History of adenomatous polyp of colon (Z86.010) Active confirmed Problem Diarrhea (46985922) Diarrhea (R19.7) Active con firmed Problem Change in bowel habit (90453325) Change in bowel habit (R19.4) Active confirmed Problem History of polyp of colon (situation) (434564107) Personal history of colonic polyps (Z86.010) Active confirmed Problem 43245892 Calculus of gallbladder without cholecystitis without obstruction (K80.20) Active confirmed Problem 874525815 Gastroesophageal reflux disease without esophagitis (K21.9) Active confirmed Problem Preprocedural examination (651580281107040) Preprocedural examination (Z01.818) Active confirmed Problem 35911996 Diarrhea, unspecified type (R19.7) Active confirmed Problem 159795588 RUQ abdominal pa in (R10.11) Active confirmed Problem 821388684 RUQ pain (R10.11) Active confirmed Problem 757752957 Left renal mass (N28.89) Active confirmed Problem 90696807446825650 Abnormal ultrasound of left kidney (R93.422) Active confirmed Vital Signs Blood pressure diastolic 11 mm Hg 01/12/2025 Height 62 in 01/12/2025 Blood pressure systolic 111 mm Hg 01/12/2025 Weight 230 lbs 01/12/2025 BMI 42.06 kg/m2 01/12/2025 Procedures Procedure Date Ordered Date Performed Result Body Sit e COLONOSCOPY 01/12/2025 N/A Encounters Encounter Location Date Provider Diagnosis [facility] [address] [facility] [address] [place] [address] 01/12/2025 Bang Little Personal history of colonic [...] Name:Bang Little , 04/17/2025 09:10:00 AM, [address] [place] [address] , [place], [place], [id number], Insurance Providers Payer Name Payer Address Payer Phone Subscriber Number Group Number Insured Name Patient Relationship to Insured Coverage Start Date Coverage End Date [employer] [employer] [facility] [address] [place] [address] [id number] ELDER PAOLA Self - patient is the insured Medical (General) History Medical History History ICD Code IDDM Elevated Cholesterol Hypertension Rheumatoid arthritis Urinary incontinence- mild GERD-neg EGD in 2000 Neg. colonoscopy in 2000 and 08/2010 Denies [place],CVA,Lung disease,renal disease Bronchitis Edema of ankles Colonoscopy [...]
[2025-04-10 13:36] VITALS: BMI 41.0
== END 2025-04-10 14:26 | disposition home or self-care (01) ==
LOC: HO.HOS 13:05
PROVIDERS: PCP Internal Medicine; Visit Provider Physician Assistant
DX: M17.0 Bilateral primary osteoarthritis of knee (principal); E11.9 Type 2 diabetes mellitus without complications
CPT/HCPCS: 20610; 99203

== ENCOUNTER → 2025-04-10 13:05 | Outpatient (BNVA) | payer MEDICARE, SELFPAY | PROVIDERS: PCP Internal Medicine; Visit Provider Physician Assistant | DX: M17.0 Bilateral primary osteoarthritis of knee (principal); M25.562 Pain in left knee | CPT/HCPCS: 20610; 99202; J1010; J2003 ==

== ENCOUNTER 2025-04-17 07:21 | Day surgery (SDC) | payer MEDICARE, SELFPAY ==
--- OUTSIDE RECORDS SUMMARY | 2025-03-30 16:53 | XMS_ITS | Encounter Summary ---
Author Organization [facility] Address [address] [place] [address] Phone Care Team Providers Care Cuff Slitter Name Role Phone Ellen Yan MD Primary Care Provider +1- [phone] Encounter Details Date Type Department Care Team (Late st Contact Info) Description 04/01/2022 Telephone [facility] [address] [place] [address] Jim Santiago MD [address] [place] [phone] Social History Tobacco Use Types Packs/Day Years [...] over the weekend. Pls call her at [phone] * Telephone Encounter - Kassi Sotelo - 04/01/2022 10:50 AM EDT Pt called, her insurance will not cover the script for joaquín. It needs a PA please advise Thank you documented in this encounter Plan of Treatment Upcoming Encounters Date Type Department Care Team (Late st Contact Info) Description 04/06/2025 1:00 PM EDT Office Visit [facility] [address] [place] [address] Sorin Carpio MD [address] [facility] [address] [place] [address] documented as of this encounter Visit Diagnoses Not on filedocumented in this encounter Care Teams Cuff Slitter Relationship Specialty Start Date End Date Ellen Yan MD [facility] [place] [address] PCP - General Internal Medicine 12/03/20 documented as of this encounter
[2025-04-17 06:51] VITALS: BMI 41.0
[2025-04-17 07:36] VITALS: BP 184/73; PULSE 78; RESP 20; TEMP 36.8; O2SAT 96; BMI 39.7
--- NOTE | 2025-04-17 07:56 | HO.ANESPROP2 ---
Documented by User: Lisa Coe NP 04/13/25 09:32 HPI - Anesthesia Eval Consult details Narrative: 74yo F for Colonoscopy PMFSH Active Problems Active Problems: All Active Problems Osteoarthritis of knees, bilateral (Acute) Chronic bronchitis (Acute) Adalimumab (Humira) long-term use (Acute) Osteoarthritis of left knee (Acute) Hyperparathyroid bone disease (Acute) HTN (hypertension) (Acute) Pulmonary nodule (Acute) Trochanteric bursitis of both hips (Acute) Leg pain, bilateral (Acute) Herpes zoster vaccination declined (Acute) COVID-19 vaccine dose declined (Acute) Family history of Red syndrome (Acute) Clear cell renal cell carcinoma (Acute) care home use of drug (Acute) Osteopenia (Acute) Dyslipidemia (Acute) CKD (chronic kidney disease) stage 2, GFR 60-89 ml/min (Acute) Patellofemoral arthritis of left knee (Acute) Obesity due to excess calories (Acute) Spinal stenosis of lumbar region with radiculopathy (Acute) Monoclonal gammopathy (Acute) Seropositive rheumatoid arthritis (Acute) Diabetic retinopathy associated with type 2 diabetes mellitus (Acute) 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 (Acute) Type 2 diabetes mellitus with diabetic polyneuropathy (Acute) Past Medical History Medical History (Updated 04/10/25 @ 13:45 by Rome Chirinos PA-C) Chronic bronchitis Adalimumab (Humira) long-term use Osteoarthritis of left knee Hyperparathyroid bone disease Hypogammaglobulinemia Trochanteric bursitis of both hips Leg pain, bilateral Herpes zoster vaccination declined COVID-19 vaccine dose declined Diabetic retinopathy Tubular adenoma of colon Osteopenia History of severe acute respiratory syndrome coronavirus 2 (SARS-CoV-2) disease Obesity due to excess calories 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 Postlaminectomy syndrome MGUS (monoclonal gammopathy of unknown significance) 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 mellitus) Diabetic retinopathy associated with type 2 diabetes mellitus CKD (chronic kidney disease) stage 3, GFR 30-59 ml/min care home (current) use of insulin GERD (gastroesophageal reflux disease) Type 2 diabetes mellitus with diabetic polyneuropathy Essential hypertension Dyslipidemia Family History Family History Mother Diabetes CVD (cardiovascular disease) HTN (hypertension) Father Hodgkin disease Brother Hodgkin disease Sister Pancreatic cancer Sister Lung cancer Non-Hodgkin lymphoma Paternal Uncle Colon cancer Family history of problems with anesthesia: No Surgical History Surgical History Hx of colonoscopy Hx laparoscopic cholecystectomy Hx of tonsillectomy Hx of cataract surgery History of back surgery History of Problems with Anesthesia: No Social History Social History Household Members: None Housing: Condominium Alcohol intake: never Patient Tobacco Use Status: Former Tobacco user Tobacco use type: Cigarette Cigarettes Per Day: 50 Years Smoked: 20 e-Cigarette/Vaping Use: Never Used Have you been hit, kicked, punched, or otherwise hurt by someone within the past year? If so, by whom?: No Are you DNR?: No Advance Directives: No Advance Directives Information Provided: Yes Advance Directives Date on File: 02/08/22 service: No Current occupational status: retired Cognitive needs: No Hearing needs: No Vision needs: Yes Meds Allergies Allergy/AdvReac Type Severity Reaction Status Date / Time codeine (Codeine) Allergy Severe DIFFICULTY Verified 04/10/25 13:36 BREATHING Penicillins AdvReac Intermediate stomach Verified 04/10/25 13:36 upset semaglutide (From Ozempic) AdvReac Vomiting Verified 04/10/25 13:36 Home Medications ?Medication ?Instructions ?Recorded ?Confirmed ?Last Taken ?Type lansoprazole 15 mg capsule,delayed 15 mg PO DAILY 10/30/22 02/24/25 05/27/23 History release (Prevacid 24Hr) coQ10 (ubiquinol) 100 mg capsule 100 mg PO BID 12/08/24 02/24/25 Unknown History (Qunol Meng CoQ10) Exam Pertinent Lab Results Pertinent Lab Results: Laboratory Tests 03/23/25 10:10 WBC 6.5 Hgb 12.5 Hct 40.1 Plt Count 278 Sodium 143 Potassium 4.3 Chloride 110 H Carbon Dioxide 26 BUN 30 H Creatinine 1.36 Assessment and Plan Assessment Anesthesia Assessment: Chart Reviewed Final Anesthetic Review Family History of Problems with Anesthesia: No History of Problems with Anesthesia: No Documented by User: Aziza Means DO 04/17/25 07:57 [facility] Past Medical History Medical History (Updated 04/10/25 @ 13:45 by Rome Chirinos PA-C) Chronic bronchitis Adalimumab (Humira) long-term use Osteoarthritis of left knee Hyperparathyroid bone disease Hypogammaglobulinemia Trochanteric bursitis of both hips Leg pain, bilateral Herpes zoster vaccination declined COVID-19 vaccine dose declined Diabetic retinopathy Tubular adenoma of colon Osteopenia History of severe acute respiratory syndrome coronavirus 2 (SARS-CoV-2) disease Obesity due to excess calories 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 Postlaminectomy syndrome MGUS (monoclonal gammopathy of unknown significance) 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 mellitus) Diabetic retinopathy associated with type 2 diabetes mellitus CKD (chronic kidney disease) stage 3, GFR 30-59 ml/min care home (current) use of insulin GERD (gastroesophageal reflux disease) Type 2 diabetes mellitus with diabetic polyneuropathy Essential hypertension Dyslipidemia Family History Family History Mother Diabetes CVD (cardiovascular disease) HTN (hypertension) Father Hodgkin disease Brother Hodgkin disease Sister Pancreatic cancer Sister Lung cancer Non-Hodgkin lymphoma Paternal Uncle Colon cancer Family history of problems with anesthesia: No Surgical History Surgical History Hx of colonoscopy Hx laparoscopic cholecystectomy Hx of tonsillectomy Hx of cataract surgery History of back surgery History of Problems with Anesthesia: No Social History Social History Household Members: None Housing: Condominium Alcohol intake: never Patient Tobacco Use Status: Former Tobacco user Tobacco use type: Cigarette Cigarettes Per Day: 50 Years Smoked: 20 e-Cigarette/Vaping Use: Never Used Have you been hit, kicked, punched, or otherwise hurt by someone within the past year? If so, by whom?: No Are you DNR?: No Advance Directives: No Advance Directives Information Provided: Yes Advance Directives Date on File: 02/08/22 service: No Current occupational status: retired Cognitive needs: No Hearing needs: No Vision needs: Yes Meds Allergies Allergy/AdvReac Type Severity Reaction Status Date / Time codeine (Codeine) Allergy Severe DIFFICULTY Verified 04/10/25 13:36 BREATHING Penicillins AdvReac Intermediate stomach Verified 04/10/25 13:36 upset semaglutide (From Ozempic) AdvReac Vomiting Verified 04/10/25 13:36 Home Medications ?Medication ?Instructions ?Recorded ?Confirmed ?Last Taken ?Type lansoprazole 15 mg capsule,delayed 15 mg PO DAILY 10/30/22 02/24/25 05/27/23 History release (Prevacid 24Hr) coQ10 (ubiquinol) 100 mg capsule 100 mg PO BID 12/08/24 02/24/25 Unknown History (Qunol Meng CoQ10) Exam Exam Date and Time: 04/17/25 0750 Height,Weight and Vital Signs: Height 5 ft 2 in Weight 98.566 kg Vital Signs Temperature 98.3 F 04/17/25 07:36 Pulse Rate 78 04/17/25 07:36 Respiratory Rate 20 04/17/25 07:36 Blood Pressure 184/73 H 04/17/25 07:36 Pulse Oximetry 96 04/17/25 07:36 Oxygen Delivery Method Room Air 04/17/25 07:36 Temperature 98.3 F 04/17/25 07:36 Pulse Rate 78 04/17/25 07:36 Respiratory Rate 20 04/17/25 07:36 Blood Pressure 184/73 H 04/17/25 07:36 Pulse Oximetry 96 04/17/25 07:36 Oxygen Delivery Method Room Air 04/17/25 07:36 Airway Mallampati Class: II TM Dist: <=3cm Neck ROM: Full Denture: Upper Heart: S1S2 Lungs: CTAB Assessment and Plan Assessment Anesthesia Assessment: Anesthesia Plan Discussed and Chart Reviewed Final Anesthetic Review Family History of Problems with Anesthesia: No History of Problems with Anesthesia: No NPO: Yes ASA Class: III Final Preanesthetic Review: No Changes in Pt Med Stat, Meds/Allgs Chart Reviewed, Consent Obtained/Reviewed and Anes Risks/Benef Reviewed Patient Risk: Intermediate Procedure Risk: Low Anesthetic Plan Anesthetic Plan: MAC: and Agree w/ Assess. and Plan Disposition: Standard PACU
[2025-04-17 07:58] LABS: Glucose, Whole Blood 168 mg/dL (60-115)
[2025-04-17] MEDS: Lactated Ringers 1,000 ML 100 ML IVCONT (08:00)
[2025-04-17 09:13] VITALS: BP 116/46; PULSE 71; RESP 16; TEMP 36.3; O2SAT 94
--- NOTE | 2025-04-17 09:17 | PM.OP ---
Brief Operative Note Date of Service: 04/17/25 Pre-op diagnosis: Screening Post-op diagnosis: other (Colon polyps) Procedure: Colonoscopy to the cecum with bx/removal of polyps x 2 Surgeon: Bang Little MD Anesthesia: MAC Was an New Client Banking Services Clerk used for this Procedure?: No Estimated blood loss (mL): 2.0 Pathology: other (A. Ascending colon polyps) Condition: stable Disposition: PACU
[2025-04-17 09:20] VITALS: BP 139/37; PULSE 67; RESP 16; O2SAT 96
--- NOTE | 2025-04-17 20:28 | OP_ITS ---
DATE OF SERVICE: 04/17/2025 SURGEON: Bang Little MD INDICATIONS: The patient presents for evaluation of personal history of tubular adenoma of the colon and colorectal cancer screening. Full consent has been obtained from her for this, including risks of bleeding and perforation. PREOPERATIVE DIAGNOSIS: POSTOPERATIVE DIAGNOSIS: PROCEDURE PERFORMED: Colonoscopy to the cecum with biopsy and removal of polyps. ESTIMATED BLOOD LOSS: COMPLICATIONS: ANESTHESIA: Medication used, monitored anesthesia care. ASSISTANTS: SPECIMENS: PREOPERATIVE DIAGNOSES: Colorectal cancer screening and personal history of tubular adenoma of the colon. POSTOPERATIVE DIAGNOSES: Colorectal cancer screening and personal history of tubular adenoma of the colon, small colon polyps, diverticulosis, and internal hemorrhoids. DESCRIPTION OF PROCEDURE: The patient was placed in the left lateral decubitus position. The digital rectal exam revealed no abnormalities. The Olympus video pediatric colonoscope was entered into the rectum and advanced to the cecum with the assistance of abdominal wall pressure. Once in the cecum, I did identify a normal-appearing cecal pouch with appendiceal orifice and a normal-appearing ileocecal valve. There was transillumination of light deep in the right lower quadrant. The entire cecum and ileocecal valve appeared normal. The scope was then slowly withdrawn assessing all mucosal surfaces carefully. Preparation was excellent. In the proximal ascending colon were 2 flat, less than 5 mm polyps, both of which were biopsied and completely removed with cold biopsy forceps. I did not visualize any other polyps, colitis, nor angiodysplasia. There was a mild amount of sigmoid diverticulosis. In the rectum, scope was retroflexed visualizing internal hemorrhoids, but no other pathology. The rectal mucosa appeared normal. Scope was straightened and withdrawn from the patient. She tolerated the procedure well and was returned to the recovery area in stable condition. IMPRESSION: 1. Small colon polyps. 2. Diverticulosis. 3. Internal hemorrhoids. PLAN: The results of the biopsies will be checked. Given these minimal findings and her age, I do not think she will need any further screening colonoscopies. She will otherwise see me on a p.r.n. basis. MD JESSE Leavitt/MIGUEL / [phone]
== END 2025-04-17 09:56 | disposition home or self-care (01) ==
PROVIDERS: PCP Internal Medicine; Visit Provider Internal Medicine
PROC: 0DJD8ZZ Inspection of Lower Intestinal Tract, Via Natural or Artificial Opening Endoscopic (ICD-10-PCS; CPT 45378; principal; 2025-04-17 08:20)
DX: Z12.11 Encounter for screening for malignant neoplasm of colon (principal); Z86.0101 Personal history of adenomatous and serrated colon polyps; D12.2 Benign neoplasm of ascending colon; K57.30 Diverticulosis of large intestine without perforation or abscess without bleeding; K64.8 Other hemorrhoids; K21.9 Gastro-esophageal reflux disease without esophagitis; M06.9 Rheumatoid arthritis, unspecified; I10 Essential (primary) hypertension; E78.00 Pure hypercholesterolemia, unspecified; J40 Bronchitis, not specified as acute or chronic; R32 Unspecified urinary incontinence; R60.9 Edema, unspecified; Z85.53 Personal history of malignant neoplasm of renal pelvis; Z79.4 Long term (current) use of insulin; Z79.620 Long term (current) use of immunosuppressive biologic; Z79.899 Other long term (current) drug therapy; Z88.0 Allergy status to penicillin; Z88.8 Allergy status to other drugs, medicaments and biological substances; Z90.49 Acquired absence of other specified parts of digestive tract; Z98.890 Other specified postprocedural states; Z87.891 Personal history of nicotine dependence
CPT/HCPCS: 45380; 82947; 88305; J2704

== ENCOUNTER 2025-04-28 08:00 | Outpatient (REF) | payer MEDICARE, SELFPAY ==
--- OUTSIDE RECORDS SUMMARY | 2025-04-17 04:20 | XMS_ITS ---
Author Organization [facility] Address [address] [place] [address] Care Team Providers Care Straightedge Worker Name Role Phone Yuriy GARCIA, Lyndsay Primary Care Provider Bang Moore [phone] REASON FOR VISIT sccreening,hx polyps Encounters Encounter Location Date Provider Diagnosis [facility] [place] [address] [place], [place] [phone] 04/17/2025 Bang Little Plan Of Treatment No Information Progress Notes * CHANTELLE FRIEDMANDOB: [birth year] (74 yo F)Acc No.[id number]:04/17/2025 COLON WITH MAC Patient: CHANTELLE VIDAL Provider: Melany Little MD :1950 A ge:74 Y S ex:Female Date:04/17/2025 Address:[address] [place] [address] [facility] Pcp:Lyndsay Yan MD Subjective: * Chief Complaints: [...] Date: 04/17/2025 Generated for Cristopher gomez/Ashwini/eTransmitting on: 04/28/2025 08:02 AM EDT
--- OUTSIDE RECORDS SUMMARY | 2025-04-28 08:03 | XMS_ITS | Encounter Summary ---
Author Organization [facility] Address [address] [place] [address] Phone Care Team Providers Care Sanding Supervisor Name Role Phone Ellen Yan MD Primary Care Provider [phone]- [phone] Encounter Details Date Type Department Care Team (Late st Contact Info) Description 04/01/2022 Telephone [facility] [address] [place] [address] Jim Santiago MD [address] [place] [phone] Social History Tobacco Use Types Packs/Day Years [...] over the weekend. Pls call her at [phone] * Telephone Encounter - Kassi Sotelo - 04/01/2022 10:50 AM EDT Pt called, her insurance will not cover the script for joaquín. It needs a PA please advise Thank you documented in this encounter Plan of Treatment Upcoming Encounters Date Type Department Care Team (Late st Contact Info) Description 09/28/2025 1:30 PM EST Office Visit [facility] [address] [place] [address] Sorin Carpio MD [address] [facility] [address] [place] [address] documented as of this encounter Visit Diagnoses Not on filedocumented in this encounter Care Teams Sanding Supervisor Relationship Specialty Start Date End Date Ellen Yan MD [facility] [address] PCP - General Internal Medicine 12/03/20 documented as of this encounter
[2025-04-28 10:05] LABS: MANUAL DIFF FLAG NO
[2025-04-28 10:22] LABS: Hematocrit 36.7 % (37.0-47.0); Hemoglobin 11.7 g/dl (12.0-16.0); Imm Gran Abs Auto 0.10 X10*3/uL (0.00-0.03); Imm Gran Pct Auto 1.1 % (0.0-0.4); Lymphocytes Absolute Auto 2.0 X10*3/uL (1.2-4.9); Mean Corpuscular HGB Conc 31.9 g/dl (31.0-35.0); Mean Corpuscular Hemoglobin 27.6 pg (27.0-33.0); Mean Corpuscular Volume 86.6 fL (80.0-98.0); NRBC Abs Auto 0.000 X10*3/uL (0.0-0.012); NRBC Pct Auto 0.0 /100WBC (0.0-0.2); Platelet Count 260 X10*3/uL (160-400); Red Blood Count 4.24 X10*6/uL (4.20-5.50); White Blood Count 9.1 X10*3/uL (4.8-10.8)
[2025-04-28 10:54] LABS: Alanine Aminotransferase 14 U/L (0-31); Albumin Level 4.0 g/dL (3.5-5.0); Alkaline Phosphatase 86 U/L (39-117); Anion Gap 14 (12-20); Aspartate Amino Transferase 23 U/L (5-31); Blood Urea Nitrogen 50 mg/dL (9-16); Calcium 9.0 mg/dL (8.4-10.2); Carbon Dioxide 24 mmol/L (22-29); Chloride 107 mmol/L (96-108); Estimated Glomerular Filt Rate 30; Potassium 5.6 mmol/L (3.3-5.1); Sodium 139 mmol/L (135-145); Total Protein 7.0 g/dL (6.5-8.0)
== END 2025-04-28 08:01 | disposition home or self-care (01) ==
LOC: HO.HMGCLDS 08:00
PROVIDERS: PCP Internal Medicine; Visit Provider Student in an Organized Health Care Education/Training Program
DX: M05.9 Rheumatoid arthritis with rheumatoid factor, unspecified (principal)
CPT/HCPCS: 36415; 80053; 85025; 85652; 86140

== ENCOUNTER 2025-05-12 07:34 | Outpatient (AMB) | payer MEDICARE, SELFPAY ==
--- OUTSIDE RECORDS SUMMARY | 2025-04-17 04:20 | XMS_ITS ---
Author Organization [facility] Address [address] [place] [address] Care Team Providers Care Radio Intelligence Operator Name Role Phone Yuriy GARCIA, Lyndsay Primary Care Provider Bang Moore Unavailable [phone] REASON FOR VISIT sccreening,hx polyps Encounters Encounter Location Date Provider [place] [facility] [place] [address] [place], [place] [phone] 04/17/2025 Bang Little Plan Of Treatment No Information Progress Notes * CHANTELLE FRIEDMANDOB: [birth year] (74 yo F)Acc No.[id number]:04/17/2025 COLON WITH MAC Patient: CHANTELLE VIDAL Provider: Melayn Little MD :1950 A ge:74 Y S ex:Female Date:04/17/2025 Address:[address] [place] [address] [facility] Pcp:Lyndsay Yan MD Subjective: * Chief Complaints: [...] Date: 04/17/2025 Generated for Cristopher gomez/Ashwini/eTransmitting on: 05/12/2025 07:37 AM EDT
--- NOTE | 2025-05-12 07:35 | A.OFFVIS_ITS ---
Vital Signs 05/12/25 07:39 Height 5 ft 2 in Weight 226 lb 3.108 oz BMI 41.4 BP 140/60 H Blood Pressure Location Lt brachial Position Sitting Pulse 74 Pulse Source Pulse Oximeter Pulse Oximetry (%) 96 Oxygen Delivery Method Room Air Intake Visit Reasons: RA/ inj Intake Note: Patient presents for RA and follow up. 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 Interval History: Last seen 01/31/25 with me - on Humira 40mg every 2 weeks and Leflunomide 10mg daily for RA - Received 3rd and final dose in the Euflexxa series for bilateral knee OA Today - on Humira 40mg every 2 weeks and Leflunomide 10mg daily for RA - Complaining of hand pain, worsening in the week after her Humira dose was administered - Did not have much efficacy from the Euflexxa injections - Received steroid injections from ortho which helped for about 2 months Rheumatologic History: Diagnosed with rheumatoid arthritis more than 10 years ago. Currently on Humira and leflunomide. Currently in remission OA - Euflexxa 01/2025. No improvement - Steroid injections Medication History: Humira 40 mg every other week subQ Leflunomide 10 mg every day [facility] Medical History (Updated 05/12/25 @ 11:13 by Minal Chapman MD) Chronic bronchitis Adalimumab (Humira) long-term use Osteoarthritis of left knee Hyperparathyroid bone disease Hypogammaglobulinemia Trochanteric bursitis of both hips Leg pain, bilateral Herpes zoster vaccination declined COVID-19 vaccine dose declined Diabetic retinopathy Tubular adenoma of colon Osteopenia History of severe acute respiratory syndrome coronavirus 2 (SARS-CoV-2) disease Obesity due to excess calories 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 Postlaminectomy syndrome MGUS (monoclonal gammopathy of unknown significance) 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 mellitus) Diabetic retinopathy associated with type 2 diabetes mellitus CKD (chronic kidney disease) stage 3, GFR 30-59 ml/min senior living (current) use of insulin GERD (gastroesophageal reflux disease) Type 2 diabetes mellitus with diabetic polyneuropathy Essential hypertension Dyslipidemia Surgical History Hx of colonoscopy Hx laparoscopic cholecystectomy Hx of tonsillectomy Hx of cataract surgery History of back surgery Family History Mother Diabetes CVD (cardiovascular disease) HTN (hypertension) Father Hodgkin disease Brother Hodgkin disease Sister Pancreatic cancer Sister Lung cancer Non-Hodgkin lymphoma Paternal Uncle Colon cancer Social History Household Members: None [facility] Alcohol intake: never Patient Tobacco Use Status: Former Tobacco user Tobacco use type: Cigarette Cigarettes Per Day: 50 Years Smoked: 20 e-Cigarette/Vaping Use: Never Used Advance Directives Date on File: 02/08/22 service: No Current occupational status: retired Cognitive needs: No Hearing needs: No Vision needs: Yes Review of Systems Const Details: Review of Systems Constitutional: Denies fever, chills, weight loss ENT: Denies vision changes, eye pain or eye redness, dental caries, dry mouth GI: Denies nausea, vomiting, diarrhea, abdominal pain, change in BM Pulm: Denies SOB, RODRIGUEZ, hemoptysis, wheezing Cards: Denies chest pain, palpitations Skin: Denies Raynaud's, rash, nail changes, photosensitivity, CAR DISTRIBUTOR: Denies headaches, weakness, paresthesias, recurrent falls MSK: as per HPI All other systems reviewed and are unremarkable except noted above Physical Exam Exam Exam: Vital signs reviewed Physical Examination CONSTITUITIONAL Patient alert and cooperative. Well appearing and in no apparent painful distress MSK Hands * Unable to make a fist bilaterally with TTP of the MCPs and PIPs * Herbedens nodes noted bilaterally Wrists * Right Wrist: Full ROM. 70 degrees of wrist flexion, 80 degrees of wrist ext ension. No swelling or TTP * Left Wrist: Full ROM. 70 degrees of wrist flexion, 80 degrees of wrist extension. No swelling or TTP Elbows * Right Elbow: Full ROM. No swelling or TTP. No TTP of the medial and lateral epicondyles * Left Elbow: Full ROM. No swelling or TTP. No TTP of the medial and lateral epicondyles Shoulders * Right shoulder: Full ROM. No swelling noted. No TTP of the AC joint, sub acromial bursa or posterior shoulder * Left shoulder: Full ROM. No swelling noted. No TTP of the AC joint, subacromial bursa or posterior shoulder Knees * Right knee: Decreased ROM. No swelling noted. No TTP of the knee joint lie or pes anserine bursa * Left knee: Decreased ROM. No swelling noted. No TTP of the knee joint lie or pes anserine bursa. Ankles * Right ankle: Good ankle dorsiflexion and plantar flexion. No swelling. No TTP of the ankle joint * Left ankle: Good ankle dorsiflexion and plantar flexion. Pitting edema at the medial malleolus. No TTP of the ankle joint Feet * Right foot: Negative squeeze test * Left foot: Negative squeeze test Tender points? * No tenderness to palpation of the bilateral trapezius, supraspinatus, anterior costochondral junctions, bilateral suboccipital muscle insertions SKIN No rashes Vital Signs: Last Vital Signs Pulse 74 05/12/25 07:39 BP 140/60 H 05/12/25 07:39 Pulse Ox 96 05/12/25 07:39 Oxygen Delivery Method Room Air 05/12/25 07:39 BMI result Body Mass Index 41.4 Results Reviewed Results Reviewed: Laboratory Tests 04/28/25 08:04 WBC 9.1 RBC 4.24 Hgb 11.7 L Hct 36.7 L Plt Count 260 ESR 44 H Sodium 139 Potassium 5.6 H D Chloride 107 Carbon Dioxide 24 BUN 50 H Creatinine 1.66 H Estimated GFR 30 AST 23 ALT 14 C-Reactive Protein 0.76 H Rheumatology Labs 09/27/24 12/20/24 10:05 08:57 IgG Total 1012 IgA Total 211 IgM 37 L LOUISE Interpretation Normal Rheumatoid Factor 13.9 Cycl Citrul Peptide IgG 31 H Infectious serologies 12/27/24 09:30 Hepatitis A IgM Ab Nonreactive Hep Bs Antigen Negative Hep Bs Antibody NONREACTIVE Hep B Core Total Ab Nonreactive Hepatitis C Ab (EIA) Nonreactive TB Test (T-Spot) Com Negative XR Left Knee XR 6/6/25 FINDINGS: Moderate arterial calcifications are present in the thigh and lower leg, increased from the prior. Again noted is moderate narrowing of the medial joint space and minimal narrowing of the lateral. Small marginal osteophytes are present involving the tibial plateau. There is an enthesophyte involving superior patella at the quadriceps attachment. There is a new moderate-sized marginal osteophyte involving the inferior patella. Small marginal osteophyte is present involving posterior femoral condyle. There is no joint effusion. IMPRESSION: Jykt-op-fltidvla osteoarthritis, most pronounced in the medial compartment. Increased from the prior. Increasing arterial vascular calcifications. DEXA 02/2025 FINDINGS: The bone mineral density of the lumbar spine is 1.468 with a T-score of 2.5, and a Z-score of 3.1. This is indicative of normal bone mineral density. This represents a BMD change of -2.3% compared to the prior exam. This is statistically significant. The bone mineral density of the left total hip is 1.066 with a T-score of 0.5, and a Z-score of 1.3. This is indicative of normal bone mineral density.- This represents a BMD change of 4.8% compared to the prior exam. This is statistically significant. The bone mineral density of the left femoral neck is 0.936 with a T-score of -0.7, and a Z-score of 0.4. This is indicative of normal bone mineral density. This represents a BMD change of 6.1% compared to the prior exam. Assessment & Plan Assessment & Plan (1) Seropositive rheumatoid arthritis: Comment: +RF/-CCP Baylee Perez Leflunomide - effective. Unable to go to higher doses due to diarrhea Humira - effective. Increased frequency 05/2025 Code(s): M05.9 - Rheumatoid arthritis with rheumatoid factor, unspecified Category: Medical Plan: #Seropositive RA Patient is a 74-year-old female with seropositive rheumatoid arthritis here today for follow up. Having a waning of efficacy of Humira after 7 days of administration Synovitis noted on examination indicating moderate activity. Due for Humira today. She will benefit from increased frequency Plan - Increase Humira 40mg SC every week - Leflunomide 10mg daily - RTC 4 months - Labs before visit: CBC, CMP, ESR, CRP (2) Primary osteoarthritis of both knees: Code(s): M17.0 - Bilateral primary osteoarthritis of knee Plan: #Bilateral Knee OA Received Euflexxa series without improvement Seeing ortho and received steroid injections 03/2025 (3) Osteopenia: Comment: DEXA 10/2022: AP Spine 2.8, Left femur neck -1.1, Left femur total 0.9. FRAX 16.6/2.5 DEXA 02/2025: AP Spine 2.5, Left femur neck -0.7, Left femur total 0.5. FRAX 15.5/2.3 Code(s): M85.80 - Other specified disorders of bone density and structure, unspecified site Category: Medical Qualifiers: Osteopenia location: femoral neck Laterality: left Qualified Code(s): M85.852 - Other specified disorders of bone density and structure, left thigh Plan: #Osteopenia Osteopenia of the left femoral neck based on DEXA. Encouraged vitamin-D and calcium supplementation. Weight-bearing exercises. 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 (current) use of other immunomodulators and immunosuppressants Plan: #Long-term leflunomide Discussed with patient the benefits and risks of leflunomide for managing the rheumatic condition Benefits include: - Reduced pain, maintenance of remission and reduction of flares Risks include: - GI upset especially diarrhea, skin rash, cytopenias, hepatotoxicity, weight loss, neuropathy Monitoring: ?CBC, BMP, LFTs, hepatitis B and C serologies (5) Long-term use of adalimumab: Code(s): Z79.620 - senior living (current) use of immunosuppressive biologic Category: Medical Plan: #Long-term use of TNF Inhibitors Discussed with the patient the benefits and risks of TNF inhibitors for the management of the rheumatic condition Benefits include reduce pain, maintenance of remission and reduction of flares as well as progression of the disease Risks include injection sites/infusion reactions, serious infections (such as bacterial infections, opportunistic infections), malignancy, delaminating syndromes, autoimmune phenomena, CHF exacerbations, palmar plantar psoriasis and cytopenias Recommended rotating injection sites, and holding medication during and for up to 1 week after resolution of a febrile illness or open skin wound Plan I spent 35 minutes reviewing the record and labs, taking a history, examining the patient, discussing the treatment plan, ordering diagnostic work up and documenting in the medical record Orders: Orders PT Evaluation and Treatment Today M17.0 - Bilateral primary osteoarthritis of knee Medications: New tramadol 50 mg PO BID PRN 60 tabs 5RF pain M17.0 - Bilateral primary osteoarthritis of knee Changed From adalimumab (Humira(CF) Pen) 40 mg (0.4 mL) subcut Q2W 56 days 2 ea 5RF M05.9 - Rheumatoid arthritis with rheumatoid factor, unspecified To adalimumab (Humira(CF) Pen) 40 mg (0.4 mL) subcut QWEEK 4 ea 5RF 30 days M05.9 - Rheumatoid arthritis with rheumatoid factor, unspecified Coding Level of Care Code Est Pt Level 4 (41391) Complex EM visit Add On G2211 Diagnoses Seropositive rheumatoid arthritis M05.9 Primary osteoarthritis of both knees M17.0 Osteopenia of neck of left femur M85.852 Osteopenia location: femoral neck Laterality: left Encounter for monitoring leflunomide therapy Z51.81; Z79.69 Long-term use of adalimumab Z79.620
[2025-05-12 07:39] VITALS: BP 140/60; PULSE 74; O2SAT 96; BMI 41.4
== END 2025-05-12 08:17 | disposition home or self-care (01) ==
LOC: HO.RHE 07:35
PROVIDERS: PCP Internal Medicine; Visit Provider Student in an Organized Health Care Education/Training Program
DX: M05.79 Rheumatoid arthritis with rheumatoid factor of multiple sites without organ or systems involvement (principal); M17.0 Bilateral primary osteoarthritis of knee; M85.852 Other specified disorders of bone density and structure, left thigh; Z51.81 Encounter for therapeutic drug level monitoring; Z79.69 Long term (current) use of other immunomodulators and immunosuppressants; Z79.620 Long term (current) use of immunosuppressive biologic
CPT/HCPCS: 99214; G2211

== ENCOUNTER → 2025-05-12 07:34 | Outpatient (BNVA) | payer MEDICARE, SELFPAY | PROVIDERS: PCP Internal Medicine; Visit Provider Student in an Organized Health Care Education/Training Program | DX: M17.0 Bilateral primary osteoarthritis of knee (principal); M85.852 Other specified disorders of bone density and structure, left thigh; Z51.81 Encounter for therapeutic drug level monitoring; Z79.69 Long term (current) use of other immunomodulators and immunosuppressants; Z79.620 Long term (current) use of immunosuppressive biologic | CPT/HCPCS: 99212 ==

== ENCOUNTER 2025-05-26 08:51 | Outpatient (AMB) | payer MEDICARE, SELFPAY ==
--- OUTSIDE RECORDS SUMMARY | 2025-04-17 04:20 | XMS_ITS ---
Author Organization [facility] Address [address] [place] [address] Care Team Providers Care Nurse Behavioral Health Care Name Role Phone Yuriy GARCIA, Lyndsay Primary Care Provider Bang Moore [phone] REASON FOR VISIT sccreening,hx polyps Encounters Encounter Location Date Provider Diagnosis [facility] [place] Outpatient [address] [place], [place] [phone] 04/17/2025 Bang Little Plan Of Treatment No Information Progress Notes * CHANTELLE FRIEDMANDOB: [birth year] (74 yo F)Acc No.[id number]:04/17/2025 COLON WITH MAC Patient: CHANTELLE VIDAL Provider: Melany Little MD :1950 A ge:74 Y S ex:Female Date:04/17/2025 Address:[address] [place] [address] [facility] Pcp:Lyndsay Yan MD Subjective: * Chief Complaints: [...] 04/17/2025 Generated for Cristopher ng/Famoreg/eTransmitting on: 0 05/26/2025 09:10 AM EDT
[2025-05-26 08:57] VITALS: BP 142/80; PULSE 80; O2SAT 97; BMI 40.7
--- NOTE | 2025-05-26 08:57 | MHC.OFFVIS ---
Vital Signs 05/26/25 08:57 Height 5 ft 2 in Weight 222 lb 10.67 oz BMI 40.7 BP 142/80 H Blood Pressure Location Rt brachial Position Sitting Pulse 80 Pulse Source Pulse Oximeter Pulse Oximetry (%) 97 Oxygen Delivery Method Room Air Intake Visit Reasons: T2DM Intake Note: Patient present today for Type 2 Diabetes Mellitus follow-up: Last Diabetic eye exam: DUE, patient has a coming up appt in June Last Podiatry Visit: Doesn't have one Random Glucose: 108 mg/dL Most Recent HgA1C: 6.8% 03/23/25 Human Resources Admin Required: No Accompanied by: Self / Same As Patient Allergies codeine (Codeine) Allergy (Severe, Verified 05/26/25 08:59) DIFFICULTY BREATHING Penicillins Adverse Reaction (Intermediate, Verified 05/26/25 08:59) stomach upset semaglutide (From Ozempic) Adverse Reaction (Verified 05/26/25 08:59) Vomiting Medication List - Last Reconciled 05/26/25 by Lucita Mckenzie PA-C adalimumab (Humira(CF) Pen) 40 mg (0.4 mL) subcut QWEEK 30 days albuterol sulfate 90 mcg/actuation 2 puffs inhalation Q6H PRN blood sugar diagnostic (OneTouch Ultra Test strips) USE 3 TIMES DAILY blood-glucose sensor (DexBespoke Innovations G7 Sensor device) CHANGE EVERY 10 DAYS DIRECTED blood-glucose,oracle database architect,cont (Dexcom G7 Chocolate Refining Roller) As directed peakspqmqy-yqygmrjp-hqptfikqyl 160-9-4.8 mcg/actuation (Breztri Aerosphere) 2 inhalations inhalation BID 30 days bumetanide 1 mg PO DAILY cholecalciferol (vitamin D3) 50 mcg PO DAILY coQ10 (ubiquinol) (Qunol Meng CoQ10) 100 mg PO BID diclofenac sodium 1% 4 grams topical QID gabapentin (Neurontin) 300 mg PO BEDTIME insulin lispro (Humalog U-100 Insulin) Inject up to 80 units with patch pump daily subcutaneously daily; lansoprazole (Prevacid 24Hr) 15 mg PO DAILY leflunomide 10 mg PO DAILY lisinopril 30 mg PO DAILY pen needle, diabetic (Novofine 32) Use daily As directed for insulin pen needle, diabetic (BD Ultra-Fine Opal Pen Needle) Use 4x a day As directed pravastatin 40 mg PO BEDTIME sub-q insulin device, 40 unit (V-GO 40 device) USE DIRECTED Toujeo Max U-300 SoloStar (insulin glargine U-300 conc) 50 units (0.1667 mL) subcut DAILY 30 days NS tramadol 50 mg PO BID PRN HPI HPI T2DM: Details: Patient is a 74 yo female with DM type 2 diagnosed in her early 40s who presents for continued management of diabetes. She has a significant past medical history of clear cell renal carcinoma, chronic kidney disease, rheumatoid arthritis, hyperlipidemia and diabetes. DM: Her A1c is 6.8 today. She is on toujeo 50 units and humalog sliding scale CGM-average glucose 158, 95% usage, gmi 7.1. Very hyperglycemic 5%, hyperglycemic 21%, in range 74%, hypoglycemic 0% She states she has had some highs because of the pain that she is in. She is currently struggling with an increase in rheumatoid arthritis symptoms and has had to increase her Humira regimen. She says that she is also experiencing significant low back pain radiating down her right leg. Micro and macrovascular complications: neuropathy, proliferative retinopathy, nephropathy but no macrovascular disease. 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 Has also met with a dietitian Chemist Proteins: Up-to-date Ophthalmology evaluation: ou proliferative diabetic retinopathy, goes twice a year for evaluation Nephro: Follows closely with Nephrology and Urology. She does have a history of renal cell carcinoma. CV: Blood pressure today in the office is 160/64. She is on lisinopril 20 mg daily. Cholesterol is controlled with pravastatin 40 mg. MSK: Reports increase of RA symptoms. She states her knees and hips are very painful. She states that she is having to take the Humira now weekly instead of biweekly. She is also currently being treated for low back pain radiating down her right leg. She states that she was prescribed 14 tramadol but the medication makes her feel nauseous. She also has been trying topical Voltaren gel without significant improvement. She is tearful today in the office and uncomfortable appearing with her back. No bowel or bladder dysfunction. There was no trauma. She is going for an MRI of her kidneys after today's appointment. She is scheduled with her PCP on the . She is going to physical therapy. [facility] Medical History (Updated 05/26/25 @ 09:11 by Lucita Mckenzie PA-C) Chronic bronchitis Adalimumab (Humira) long-term use Osteoarthritis of left knee Hyperparathyroid bone disease Hypogammaglobulinemia Trochanteric bursitis of both hips Leg pain, bilateral Herpes zoster vaccination declined COVID-19 vaccine dose declined Diabetic retinopathy Tubular adenoma of colon Osteopenia History of severe acute respiratory syndrome coronavirus 2 (SARS-CoV-2) disease Obesity due to excess calories 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 Postlaminectomy syndrome MGUS (monoclonal gammopathy of unknown significance) 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 mellitus) Diabetic retinopathy associated with type 2 diabetes mellitus CKD (chronic kidney disease) stage 3, GFR 30-59 ml/min superintendent terminal (current) use of insulin GERD (gastroesophageal reflux disease) Type 2 diabetes mellitus with diabetic polyneuropathy Essential hypertension Dyslipidemia Surgical History Hx of colonoscopy Hx laparoscopic cholecystectomy Hx of tonsillectomy Hx of cataract surgery History of back surgery Family History Mother Diabetes CVD (cardiovascular disease) HTN (hypertension) Father Hodgkin disease Brother Hodgkin disease Sister Pancreatic cancer Sister Lung cancer Non-Hodgkin lymphoma Paternal Uncle Colon cancer Social History Household Members: None Housing: Condominium Alcohol intake: never Patient Tobacco Use Status: Former Tobacco user Tobacco use type: Cigarette Cigarettes Per Day: 50 Years Smoked: 20 e-Cigarette/Vaping Use: Never Used Advance Directives Date on File: 02/08/22 service: No Current occupational status: retired Cognitive needs: No Hearing needs: No Vision needs: Yes Physical Exam Vital Signs: Last Vital Signs Pulse 80 05/26/25 08:57 BP 142/80 H 05/26/25 08:57 Pulse Ox 97 05/26/25 08:57 Oxygen Delivery Method Room Air 05/26/25 08:57 BMI result Body Mass Index 40.7 Const Orientation/consciousness: patient oriented x3 HEENT Ears: hearing grossly normal bilaterally Neck Thyroid: Thyroid normal Lymphatic: no lymphadenopathy noted Resp Auscultation: clear to auscultation bilaterally Cardio Rate: regular rate Rhythm: regular rhythm Heart sounds: S1 normal heart sound present and S2 normal heart sound present Skin General skin exam: no rashes or lesions noted Neuro General: patient oriented x3 and no focal motor deficits Results Reviewed Results Reviewed: Laboratory Tests 04/25/24 04/28/25 08:23 08:04 Anion Gap 14 BUN 50 H Creatinine 1.66 H Estimated GFR 30 Random Glucose 145 H AST 23 ALT 14 Triglycerides 177 H Cholesterol 172 LDL Cholesterol, Calc 88 HDL Cholesterol 49 Assessment & Plan Assessment & Plan (1) Type 2 diabetes mellitus with diabetic polyneuropathy: Code(s): E11.42 - Type 2 diabetes mellitus with diabetic polyneuropathy Category: Medical Qualifiers: Diabetes mellitus superintendent terminal insulin use: with superintendent terminal use Qualified Code(s): E11.42 - Type 2 diabetes mellitus with diabetic polyneuropathy; Z79.4 - superintendent terminal (current) use of insulin Plan: Currently well-controlled. Most recent A1c 6.8. Continue current regimen. Follow up in 3 months. Sooner if needed. (2) CKD stage 3b, GFR 30-44 ml/min: Code(s): N18.32 - Chronic kidney disease, stage 3b Category: Medical Plan: stable follows with nephrololgy Avoids NSAIDs (3) HTN (hypertension): Code(s): I10 - Essential (primary) hypertension Category: Medical Plan: A little elevated above goal today. States that she recently had her lisinopril increased a few days ago. Continue current regimen (4) Dyslipidemia: Code(s): E78.5 - Hyperlipidemia, unspecified Category: Medical Plan: Continue on pravastatin. States that she has an order to get her lipids checked. (5) Polyarthralgia: Code(s): M25.50 - Pain in unspecified joint Category: Medical Plan: Prescription lidocaine patches to use as needed. Advised to try taking the tramadol with a light meal. She does have a prescription for Zofran at home to use if she does get nauseous. Advised to follow up closely with her PCP in regards to pain management. Medications: New lidocaine 5% leave on most painful area for up to 12 hrs 3 patches topical DAILY 30 ea 3RF Coding Level of Care Code Est Pt Level 4 (79349) Complex EM visit Add On G2211 Diagnoses Type 2 diabetes mellitus with diabetic polyneuropathy, with long-term current use of insulin E11.42; Z79.4 Diabetes mellitus superintendent terminal insulin use: with superintendent terminal use CKD stage 3b, GFR 30-44 ml/min N18.32 HTN (hypertension) I10 Dyslipidemia E78.5 Polyarthralgia M25.50
[2025-05-26 09:06] LABS: Glucose, Whole Blood 108 mg/dL (60-115)
--- OUTSIDE RECORDS SUMMARY | 2025-05-26 09:10 | XMS_ITS | Encounter Summary ---
Author Organization [facility] Address [address] [place] [address] Phone Care Team Providers Care Pre Parole Counseling Aide Name Role Phone Ellen Yan MD Primary Care Provider [phone] Encounter Details Date Type Department Care Team (Late st Contact Info) Description 04/01/2022 Telephone [facility] [address] [place] [address] Jim Santiago MD [address] [place] [phone] Social History Tobacco Use Types Packs/Day Years [...] over the weekend. Pls call her at [phone] * Telephone Encounter - Kassi Sotelo - 04/01/2022 10:50 AM EDT Pt called, her insurance will not cover the script for joaquín. It needs a PA please advise Thank you documented in this encounter Plan of Treatment Upcoming Encounters Date Type Department Care Team (Late st Contact Info) Description 09/28/2025 1:30 PM EST Office Visit [facility] [address] [place] [address] Sorin Carpio MD [address] [facility] [address] [place] [address] documented as of this encounter Visit Diagnoses Not on filedocumented in this encounter Care Teams Pre Parole Counseling Aide Relationship Specialty Start Date End Date Ellen Yan MD [facility] [place] [address] PCP - General Internal Medicine 12/03/20 documented as of this encounter
== END 2025-05-26 09:16 | disposition home or self-care (01) ==
LOC: HO.ENCR 08:52
PROVIDERS: PCP Internal Medicine; Visit Provider Physician Assistant
DX: E11.42 Type 2 diabetes mellitus with diabetic polyneuropathy (principal); Z79.4 Long term (current) use of insulin; N18.32 Chronic kidney disease, stage 3b; I10 Essential (primary) hypertension; E78.5 Hyperlipidemia, unspecified; M25.50 Pain in unspecified joint

== ENCOUNTER → 2025-05-26 10:11 | Outpatient (BNV) | payer MEDICARE, SELFPAY | PROVIDERS: PCP Internal Medicine; Visit Provider Radiology Diagnostic Radiology | DX: K86.2 Cyst of pancreas (principal) | CPT/HCPCS: 74183 ==

== ENCOUNTER 2025-05-26 11:07 | Outpatient (REF) | payer MEDICARE, SELFPAY ==
--- NOTE | ~2025-05-26 | MR_ITS ---
EXAMINATION: MR ABDOMEN WITHOUT AND WITH CONTRAST CLINICAL INFORMATION: Malignancy, left kidney. Status post ablation. COMPARISON: December 06, 2024. TECHNIQUE: MR abdomen was performed without and with use of 10.0 mL intravenous [(Gadavist) gadolinium contrast. Postcontrast images are performed in multiphase dynamic sequences. Imaging was performed in 3 planes. No reported immediate complications. FINDINGS: Limited by patient's breathing motion artifact. LUNG BASES: No enhancing lesion LIVER, GALLBLADDER, AND BILIARY TREE: Liver measures 15 cm. No focal mass. Main portal vein is patent. No intrahepatic biliary ductal dilatation. Gallbladder is absent. Common bile duct measures 4 mm. PANCREAS: There is a cluster of fluid signal characteristic lesions in the body of the pancreas with thin septations. There is a 3 mm fluid signal characteristic in the body and tail of the incus. The main pancreatic duct measures 2 mm. No peripancreatic fluid collection. SPLEEN: 8 cm. No focal mass. ADRENAL GLANDS: No nodular lesions. KIDNEYS AND URETERS: Right kidney: There is a 19 mm exophytic, nonenhancing fluid signal characteristic lesion in the lower pole. No enhancing mass. No hydronephrosis. Normal enhancement of the renal parenchyma. Left kidney: There is a 29 mm exophytic mixed hypointense T2 nonenhancing lesion in the upper pole. Multifocal subcentimeter cyst in the midportion and lower pole, multiple. Renal cortical thinning. No hydronephrosis. Volume loss slightly asymmetric when compared with the site. GASTROINTESTINAL TRACT: No intestinal obstruction pattern. No ascites. ABDOMINAL WALL: No gross umbilical hernia. LYMPH NODES: No lymphadenopathy, mesenteric or retroperitoneal. VASCULAR: No aneurysm or dissection abdominal aorta. OSSEOUS STRUCTURES: Multilevel thoracolumbar spondylosis. Central herniated disc at T9-10 and central spinal canal stenosis at L4-5 L3-4 and L5-S1 on a multifactorial basis no fully evaluated. MR/MR abdomen wo/w con IMPRESSION: Overall stable without abnormal enhancement. Status post treatment changes in the exophytic lesion upper pole left kidney. Bilateral renal cysts. Stable cystic lesions in the pancreas. Multilevel thoracolumbar spondylosis resulting in central spinal canal stenosis from L3-4 to L5-S1 and central herniated disc at T9-T10. Electronically signed by: Luis Armando Fleming MD 05/26/2025 12:39 PM EDT
== END 2025-05-26 11:08 | disposition home or self-care (01) ==
LOC: HO.MRI 11:07
PROVIDERS: PCP Internal Medicine; Visit Provider Nurse Practitioner Family
DX: C64.9 Malignant neoplasm of unspecified kidney, except renal pelvis (principal); E11.42 Type 2 diabetes mellitus with diabetic polyneuropathy; Z79.4 Long term (current) use of insulin; I12.9 Hypertensive chronic kidney disease with stage 1 through stage 4 chronic kidney disease, or unspecified chronic kidney disease; E11.22 Type 2 diabetes mellitus with diabetic chronic kidney disease; N18.32 Chronic kidney disease, stage 3b; E78.5 Hyperlipidemia, unspecified; M25.50 Pain in unspecified joint
CPT/HCPCS: 74183; 82947; 99212; A9585

== ENCOUNTER 2025-05-29 12:23 | Outpatient (AMB) | payer MEDICARE, SELFPAY ==
--- OUTSIDE RECORDS SUMMARY | 2025-04-17 04:20 | XMS_ITS ---
Author Organization [facility] Address [address] [place] [address] Care Team Providers Care Offensive Coordinator Name Role Phone Yuriy GARCIA, Lyndsay Primary Care Provider Bang Moore [phone] REASON FOR VISIT sccreening,hx polyps Encounters Encounter Location Date Provider Diagnosis [facility] [place] Out[place] [address] [place], [place] [phone] 04/17/2025 Bang Little Plan Of Treatment No Information Progress Notes * CHANTELLE FRIEDMANDOB: [birth year] (74 yo F)Acc No.[id number]:04/17/2025 COLON WITH MAC Patient: CHANTELLE VIDAL Provider: Melany Little MD :1950 A ge:74 Y S ex:Female Date:04/17/2025 Address:[address] [place] [address] [facility] Pcp:Lyndsay Yan MD Subjective: * Chief Complaints: [...] Date: 04/17/2025 Generated for Cristopher gomez/Ashwini/eTransmitting on: 0 05/29/2025 01:25 PM EDT
[2025-05-29 12:31] VITALS: BP 130/60; PULSE 79; RESP 16; TEMP 36.8; O2SAT 97; BMI 40.8
--- NOTE | 2025-05-29 12:31 | A.OFFPC_ITS ---
Vital Signs 05/29/25 12:31 Height 5 ft 2 in Weight 223 lb BMI 40.8 BP 130/60 Blood Pressure Location Lt brachial Position Sitting Respiration 16 Pulse 79 Pulse Source Pulse Oximeter Temp 98.2 F Temp Source Oral Pulse Oximetry (%) 97 Oxygen Delivery Method Room Air Intake Visit Reasons: PE Intake Note: Pt is here today for her PE: last mammogram 05/26/24, bone density scan 02/10/25, colonoscopy 11/16/19 Allergies codeine (Codeine) Allergy (Severe, Verified 05/29/25 13:12) DIFFICULTY BREATHING Penicillins Adverse Reaction (Intermediate, Verified 05/29/25 13:12) stomach upset semaglutide (From Ozempic) Adverse Reaction (Verified 05/29/25 13:12) Vomiting Medication List - Last Reconciled 05/29/25 by Lyndsay Yan MD adalimumab (Humira(CF) Pen) 40 mg (0.4 mL) subcut QWEEK 30 days albuterol sulfate 90 mcg/actuation 2 puffs inhalation Q6H PRN blood sugar diagnostic (ComcastTouch Ultra Test strips) USE 3 TIMES DAILY blood-glucose sensor (IG Guitars G7 Sensor device) CHANGE EVERY 10 DAYS DIRECTED blood-glucose,fruit harvester,cont (Dexcom G7 Tin Stacker) As directed yrvtvqktei-ddguaovv-vasifyfxgi 160-9-4.8 mcg/actuation (Breztri Aerosphere) 2 inhalations inhalation BID 30 days bumetanide 1 mg PO DAILY cholecalciferol (vitamin D3) 50 mcg PO DAILY coQ10 (ubiquinol) (Qunol Meng CoQ10) 100 mg PO BID diclofenac sodium 1% 4 grams topical QID gabapentin (Neurontin) 300 mg PO BEDTIME insulin lispro (Humalog U-100 Insulin) Inject up to 80 units with patch pump daily subcutaneously daily; lansoprazole (Prevacid 24Hr) 15 mg PO DAILY leflunomide 10 mg PO DAILY lidocaine 5% 3 patches topical DAILY lisinopril 30 mg PO DAILY pen needle, diabetic (Novofine 32) Use daily As directed for insulin pen needle, diabetic (BD Ultra-Fine Opal Pen Needle) Use 4x a day As directed pravastatin 40 mg PO BEDTIME sub-q insulin device, 40 unit (V-GO 40 device) USE DIRECTED Toujeo Max U-300 SoloStar (insulin glargine U-300 conc) 50 units (0.1667 mL) subcut DAILY 30 days NS Tobacco use date assessed: 05/29/25 Fall risk assessment: No Falls in past year Last assessed Fall Risk: 05/29/25 Dental Screening Dental Screen Date: 05/29/25 Did you have a dental visit in the last 12 months?: No Did you have a dental problem in the last 6 months where you did not have access to dental care?: No Was dental information given to patient?: Patient has dentist HPI PE HPI Details - The patient is a 74-year-old female pr esenting for a physical examination - Osteoarthritis: The patient is undergo ing treatment with Humira, which was increased from biweekly to weekly dosing. Physical therapy has been recommended, and if ineffective, joint replacement may be considered. - Diabetes Mellitus: The patient's recen t HbA1c was 6.8%. She has experienced adverse reactions to medications such as Ozempic and Trulicity, and Jardiance caused yeast infections. Current management includes Humalog and Toujeo in addition to lifestyle modifications. - Diabetic Neuropathy: The patient exper iences neuropathy managed with gabapentin, which alleviates symptoms. - Chronic Kidney Disease: The patient garcia s a renal mass being monitored by Dr. Victoria. Previous imaging showed a benign cyst and no significant kidney swelling. - Hypertension: The patient is currently on lisinopril and Bumex. Blood pressure was noted to be 130 mmHg systolic during the visit. - Hyperlipidemia: The patient is due for a cholesterol check, as the last assessment was over a year ago. - Secondary Hyperparathyroidism: The located within [facility] ient is being monitored for this condition, with no current intervention required. - History of Tubular Adenoma: The patien t had a colonoscopy in April, which revealed two precancerous polyps. No further colonoscopies are planned due to age and previous findings. - History of Hemorrhoids: The patient garcia s hemorrhoids that are not currently bleeding. - Preventative care: The patient has conrad eduled a mammogram and an eye exam. A bone density scan was conducted in February, showing normal results despite elevated parathyroid hormone levels. REPLACED BY [facility] Medical History Diabetic neuropathy associated with diabetes mellitus due to underlying condition Chronic bronchitis Adalimumab (Humira) long-term use Osteoarthritis of left knee Hyperparathyroid bone disease Hypogammaglobulinemia Trochanteric bursitis of both hips Leg pain, bilateral Herpes zoster vaccination declined COVID-19 vaccine dose declined Diabetic retinopathy Tubular adenoma of colon Osteopenia History of severe acute respiratory syndrome coronavirus 2 (SARS-CoV-2) disease Obesity due to excess calories 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 Postlaminectomy syndrome MGUS (monoclonal gammopathy of unknown significance) 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 mellitus) Diabetic retinopathy associated with type 2 diabetes mellitus CKD (chronic kidney disease) stage 3, GFR 30-59 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 GERD (gastroesophageal reflux disease) Type 2 diabetes mellitus with diabetic polyneuropathy Essential hypertension Dyslipidemia Surgical History Hx of colonoscopy Hx laparoscopic cholecystectomy Hx of tonsillectomy Hx of cataract surgery History of back surgery Family History Mother Diabetes CVD (cardiovascular disease) HTN (hypertension) Father Hodgkin disease Brother Hodgkin disease Sister Pancreatic cancer Sister Lung cancer Non-Hodgkin lymphoma Paternal Uncle Colon cancer Social History Household Members: None Housing: Condominium Alcohol intake: never Patient Tobacco Use Status: Former Tobacco user Tobacco use type: Cigarette Cigarettes Per Day: 50 Years Smoked: 20 e-Cigarette/Vaping Use: Never Used Advance Directives Date on File: 02/08/22 service: No Current occupational status: retired Cognitive needs: No Hearing needs: No Vision needs: Yes Questionnaire PHQ-9 Over the last 2 weeks, how often have you been bothered by any of the following problems? 1. Little interest or pleasure in doing things: not at all 2. Feeling down, depressed, or hopeless: not at all 3. Trouble falling or staying asleep, or sleeping too much: not at all 4. Feeling tired or having little energy: not at all 5. Poor appetite or overeating: not at all 6. Feeling bad about yourself - or that you are a failure or have let yourself or your family down: not at all 7. Trouble concentrating on things, such as reading the newspaper or watching television: not at all 8. Moving or speaking so slowly that other people could have noticed. Or the opposite - being so fidgety or restless that you have been moving around a lot more than usual: not at all 9. Thoughts that you would be better off or of hurting yourself in some way: not at all Total score: 0 Depression Screening Interpretation: Negative Depression Screening Done: Yes 46537 - PHQ-9 Billing: Yes Source: Developed by Drs. Bang Wilkerson, Ivett Sidhu, Alejandro Momin and colleagues, with an educational pretty from [employer]. Thrive Questionnaire Date Thrive assessed: 05/29/25 I am a: Patient What is your living situation today?: I have a steady place to live Within the past 12 months, did the food you bought not last and you didn't have the money to get more?: I choose not to answer this question Within the past 12 months, did you worry whether your food would run out before you got money to buy more?: Never true Do you have trouble paying for medicines?: No Do you have trouble getting transportation to medical appointments?: No Do you have trouble paying your heating and electricity bill?: No Do you have trouble taking care of your child, family member or friend?: No Do you have trouble with day-to-day activities such as bathing, preparing meals, shopping, managing finances, etc.?: No Are you currently unemployed and looking for a job?: No Are you interested in more education?: No Currently or been in a relationship where the following occur: No concerns reported THRIVE Score: 0 JENY-7 AMB Questionnaire JENY-7 Date JENY - 7 assessed: 12/18/23 Source: Developed by Drs. Bang Wilkerson, Ivett Sidhu, Alejandro Momin and colleagues, with an educational pretty from [employer]. Review of Systems Const Details: Review of Systems Denies fever(s) and Denies weakness Eyes Denies change in vision ENT Reports no additional complaints Card Denies chest pain, Denies irregular heart rhythm and Denies dyspnea Resp Denies cough and Denies dyspnea GI Denies abdominal pain Denies hematuria, Denies dysuria, Denies urinary hesitancy and Denies urinary urgency Musc Reports back pain (minimal lumbar region), Denies numbness and Denies tingling Skin/Breast Denies breast pain, Denies breast mass, Denies erythema and Denies rash Neuro Denies focal weakness, Denies numbness, Denies tingling, Denies paresthesias and Denies weakness Psych Reports no additional complaints Endo Reports no additional complaints Eduardo/Lymph Reports no additional complaints Aller/Immun Reports no additional complaints Physical exam (Primary Care) Vital Signs: Last Vital Signs Temp 98.2 F 05/29/25 12:31 Pulse 79 05/29/25 12:31 Resp 16 05/29/25 12:31 BP 130/60 05/29/25 12:31 Pulse Ox 97 05/29/25 12:31 Oxygen Delivery Method Room Air 05/29/25 12:31 BMI result Body Mass Index 40.8 Tobacco/Smoking Status: Tobacco use Status Tobacco use date assessed 05/29/25 05/29/25 12:44 Patient Tobacco Use Status Former Tobacco user 05/29/25 12:34 Tobacco use type Cigarette 05/29/25 12:34 e-Cigarette/Vaping Use Never Used 05/29/25 12:34 PHQ-9: PHQ-9 Score PHQ-9: Total score 0 06/05/25 00:25 Depression Screening Interpretation: Negative Thrive Assessment: Date of Thrive Assessment Date Thrive assessed 05/29/25 05/29/25 13:13 Currently or been in a relationship where the following occur: No concerns reported Const General: no acute distress Nutritional Appearance: obese Orientation/consciousness: patient oriented x3 HENMT Head: Yes normocephalic Eyes General: appearance normal, both eyes and all related structures Neck Neck: Yes full ROM, Yes no lymphadenopathy and Yes supple Resp Auscultation: clear to auscultation bilaterally Cardio Other: S1-S2 present regular rate and rhythm GI Palpation (GI): Soft to palpation, nontender and no masses General: Yes no CVA tenderness Back/Spine/Pelvis Back: no CVA tenderness Skin General skin exam: no rashes or lesions noted Neuro General: patient oriented x3, gait normal, tone normal, moves all extremities, Normal light touch and pain sensation and no focal motor deficits Extrem General: Yes full ROM, Yes no joint enlargement, Yes no calf tenderness and Yes normal gait Results Reviewed Results Reviewed: Name: Paola Vargas Age/Sex: 74/F : 1950 Unit#: [id number] Attend Dr: Minal Chapman MD Re04/28/25 Status: DEP [facility]: SPEC : [id number] GUI: 04/28/25 STATUS: COMP REQ : [id number] RECD: 04/28/[address] [facility] [address]: Minal Chapman MD COMP: 04/28/25 ENTERED: 04/28/[address]: Lyndsay Yan MD ORDERED: CBC Auto Diff Test Result Flag Reference WBC 9.1 4.8-10.8 X10*3/uL RBC 4.24 4.20-5.50 X10*6/uL HGB 11.7 L 12.0-16.0 g/dl HCT 36.7 L 37.0-47.0 % MCV 86.6 80.0-98.0 fL MCH 27.6 27.0-33.0 pg MCHC 31.9 31.0-35.0 g/dl RDW 14.9 11.0-16.0 % PLT 260 160-400 X10*3/uL MPV 11.3 9.4-12.3 fL Neut Pct Auto 60.6 45-73 % ImGran Pct Auto 1.1 H 0.0-0.4 % Lymp Pct Auto 22.0 20-40 % Montrose Pct Auto 11.7 H 2-11 % Eos Pct Auto 3.5 0-4 % Baso Pct Auto 1.1 0-2 % NRBC Pct Auto 0.0 0.0-0.2 /100WBC ANC Neut Abs # 5.5 2.0-8.3 x10*3/uL ImGran Abs Auto 0.10 H 0.00-0.03 X10 *3/uL Lymph Abs Auto 2.0 1.2-4.9 X10*3/uL Montrose Abs Auto 1.1 0.1-1.2 X10*3/uL Eos Abs Auto 0.3 0.0-0.4 X10*3/uL Baso Abs Auto 0.1 0.0-0.2 X10*3/uL NRBC Abs Auto 0.000 0.0-0.012 X10*3/uL Laboratory Tests 04/25/24 03/23/25 08:23 10:10 Hemoglobin A1c % 6.8 H Triglycerides 177 H Cholesterol 172 LDL Cholesterol, Calc 88 HDL Cholesterol 49 Laboratory Tests 03/23/25 10:15 Urine Microalbumin 6.0 Microalb/Creat Ratio 11.9 Protein/Creatinin Ratio TNP Coding Level of Care Code Est Pt Prev Care >65y(98373) Diagnoses Annual visit for general adult medical examination with abnormal findings Z00. HTN (hypertension) I10 Dyslipidemia E78.5 Type 2 diabetes mellitus with diabetic polyneuropathy, with long-term current use of insulin E11.42; Z79.4 Diabetes mellitus fpc insulin use: with terminal system operator use Osteopenia of neck of left femur M85.852 Osteopenia location: femoral neck Laterality: left Class 3 severe obesity due to excess calories with serious comorbidity and body mass index (BMI) of 40.0 to 44.9 in adult E66.01; Z68.41 Obesity classification: adult class 3 (BMI >= 40) Serious obesity comorbidity presence: with serious comorbidity Body mass index: BMI 40.0-44.9 Monoclonal gammopathy D47.2 Seropositive rheumatoid arthritis M05.9 Spinal stenosis of lumbar region with radiculopathy M48.061; M54.16 Diabetic neuropathy associated with diabetes mellitus due to underlying condi tion E08.40 Pulmonary nodule R91.1 Additional Codes PHQ-9 - 05458 - PHQ-9 Billing: Yes ([id number]) Assessment & Plan Assessment & Plan (1) Annual visit for general adult medical examination with abnormal findings: Code(s): Z00.01 - Encounter for general adult medical examination with abnormal findings (2) HTN (hypertension): Code(s): I10 - Essential (primary) hypertension Category: Medical (3) Dyslipidemia: Code(s): E78.5 - Hyperlipidemia, unspecified Category: Medical (4) Type 2 diabetes mellitus with diabetic polyneuropathy: Code(s): E11.42 - Type 2 diabetes mellitus with diabetic polyneuropathy Category: Medical Qualifiers: Diabetes mellitus terminal system operator insulin use: with terminal system operator use Qualified Code(s): E11.42 - Type 2 diabetes mellitus with diabetic polyneuropathy; Z79.4 - 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 FRAX 16.6/2.5 DEXA 02/2025: AP Spine 2.5, Left femur neck -0.7, Left femur total 0.5. FRAX 15.5/2.3 Code(s): M85.80 - Other specified disorders of bone density and structure, unspecified site Category: Medical Qualifiers: Osteopenia location: femoral neck Laterality: left Qualified Code(s): M85.852 - Other specified disorders of bone density and structure, left thigh (6) Obesity due to excess calories: Code(s): E66.09 - Other obesity due to excess calories Category: Medical Qualifiers: Obesity classification: adult class 3 (BMI >= 40) Serious obesity comorbidity presence: with serious comorbidity Body mass index: BMI 40.0-44.9 Qualified Code(s): E66.01 - Morbid (severe) obesity due to excess calories; Z68.41 - Body mass index [BMI]40.0-44.9, adult (7) Monoclonal gammopathy: Code(s): D47.2 - Monoclonal gammopathy Category: Medical (8) Seropositive rheumatoid arthritis: Comment: +RF/-CCP Enbrel Kevzara Remicade Xeljanz Leflunomide - effective. Unable to go to higher doses due to diarrhea Humira - effective. Increased frequency 05/2025 Code(s): M05.9 - Rheumatoid arthritis with rheumatoid factor, unspecified Category: Medical (9) Spinal stenosis of lumbar region with radiculopathy: Code(s): M48.061 - Spinal stenosis, lumbar region without neurogenic claudication; M54.16 - Radiculopathy, lumbar region Category: Medical (10) Diabetic neuropathy associated with diabetes mellitus due to underlying condition: Code(s): E08.40 - Diabetes mellitus due to underlying condition with diabetic neuropathy, unspecified Category: Medical (11) Pulmonary nodule: Code(s): R91.1 - Solitary pulmonary nodule Category: Medical Plan -Currently on Humira regimen for her arthritis, prescribed by Dr. Chapman , with physical therapy as an adjunct treatment. If physical therapy proves ineffective, joint replacement may be considered. -For diabetes management, the patient will maintain lifestyle modifications and monitor blood glucose levels, avoiding medications that previously caused adverse effect, currently followed by endocrine clinic at [facility] . Referred to podiatry for her diabetes foot exam - The patient's hypertension will be managed with lisinopril and Bumex, with regular monitoring of blood pressure. -The patient will undergo a cholesterol check to assess hyperlipidemia status, as the last assessment was over a year ago. The renal mass will continue to be monitored by Dr. Victoria, with no immediate intervention required. Secondary hyperparathyroidism will be observed, with no current treatment necessary. The patient will follow up with scheduled mammogram and eye exam appointments, and a flu shot is planned at [facility]. The patient is advised to report any new symptoms or changes in health status promptly. Patient was informed and verbally consented to the use of an ambient scribe for clinic note documentation during this visit. Orders: Referrals Podiatry Referral E08.40 - Diabetes mellitus due to underlying condition with diabetic neuropathy, unspecified
--- OUTSIDE RECORDS SUMMARY | 2025-05-29 13:26 | XMS_ITS | Encounter Summary ---
Author Organization [facility] Address [address] [place] [address] Phone Care Team Providers Care Equine Breeder Name Role Phone Ellen Yan MD Primary Care Provider [phone] Encounter Details Date Type Department Care Team (Late st Contact Info) Description 04/01/2022 Telephone [facility] [address] [place] [address] Jim Santiago MD [address] [place] [phone] Social History Tobacco Use Types Packs/Day Years [...] over the weekend. Pls call her at [phone] * Telephone Encounter - Kassi Sotelo - 04/01/2022 10:50 AM EDT Pt called, her insurance will not cover the script for joaquín. It needs a PA please advise Thank you documented in this encounter Plan of Treatment Upcoming Encounters Date Type Department Care Team (Late st Contact Info) Description 09/28/2025 1:30 PM EST Office Visit [facility] [address] [place] [phone] Sorin Carpio MD [address] [facility] [address] [place] [id number] documented as of this encounter Visit Diagnoses Not on filedocumented in this encounter Care Teams Equine Breeder Relationship Specialty Start Date End Date Ellen Yan MD [facility] [place] [address] PCP - General Internal Medicine 12/03/20 documented as of this encounter
== END 2025-05-29 13:13 | disposition home or self-care (01) ==
LOC: HO.HMCC 12:23
PROVIDERS: PCP Internal Medicine; Visit Provider Internal Medicine
DX: Z00.01 Encounter for general adult medical examination with abnormal findings (principal); E11.42 Type 2 diabetes mellitus with diabetic polyneuropathy; E66.01 Morbid (severe) obesity due to excess calories; Z68.41 Body mass index [BMI] 40.0-44.9, adult; Z79.4 Long term (current) use of insulin; M05.9 Rheumatoid arthritis with rheumatoid factor, unspecified; E08.40 Diabetes mellitus due to underlying condition with diabetic neuropathy, unspecified; I10 Essential (primary) hypertension; E78.5 Hyperlipidemia, unspecified; M85.852 Other specified disorders of bone density and structure, left thigh; D47.2 Monoclonal gammopathy; M48.061 Spinal stenosis, lumbar region without neurogenic claudication

== ENCOUNTER → 2025-05-29 12:23 | Outpatient (BNVA) | payer MEDICARE, SELFPAY | PROVIDERS: PCP Internal Medicine; Visit Provider Internal Medicine | DX: Z00.01 Encounter for general adult medical examination with abnormal findings (principal); E11.42 Type 2 diabetes mellitus with diabetic polyneuropathy; E11.22 Type 2 diabetes mellitus with diabetic chronic kidney disease; E11.40 Type 2 diabetes mellitus with diabetic neuropathy, unspecified; I12.9 Hypertensive chronic kidney disease with stage 1 through stage 4 chronic kidney disease, or unspecified chronic kidney disease; N18.9 Chronic kidney disease, unspecified; E78.5 Hyperlipidemia, unspecified; N25.81 Secondary hyperparathyroidism of renal origin; E66.01 Morbid (severe) obesity due to excess calories; D47.2 Monoclonal gammopathy; M05.9 Rheumatoid arthritis with rheumatoid factor, unspecified; M48.061 Spinal stenosis, lumbar region without neurogenic claudication; M54.16 Radiculopathy, lumbar region; R91.1 Solitary pulmonary nodule; Z79.4 Long term (current) use of insulin; Z68.41 Body mass index [BMI] 40.0-44.9, adult | CPT/HCPCS: 96127; 99397 ==

== ENCOUNTER 2025-05-30 08:02 | Outpatient (REF) | payer MEDICARE, SELFPAY ==
[2025-05-30 10:27] LABS: Hemoglobin A1C 162.7231 umol/L; Total Hemoglobin (HGBA1C) 3104.2010 umol/L
[2025-05-30 10:35] LABS: Alanine Aminotransferase 16 U/L (0-31); Albumin Level 4.1 g/dL (3.5-5.0); Alkaline Phosphatase 83 U/L (39-117); Anion Gap 14 (12-20); Aspartate Amino Transferase 35 U/L (5-31); Blood Urea Nitrogen 55 mg/dL (9-16); Calcium 9.1 mg/dL (8.4-10.2); Carbon Dioxide 25 mmol/L (22-29); Chloride 107 mmol/L (96-108); Cholesterol 149 mg/dL (<200); Estimated Glomerular Filt Rate 30; HDL Cholesterol 46 mg/dL (>40); Potassium 4.9 mmol/L (3.3-5.1); Sodium 141 mmol/L (135-145); Total Protein 7.2 g/dL (6.5-8.0); Triglycerides 127 mg/dL (<150)
== END 2025-05-30 08:03 | disposition home or self-care (01) ==
LOC: HO.HMGCLDS 08:02
PROVIDERS: PCP Internal Medicine; Visit Provider Physician Assistant
DX: E11.42 Type 2 diabetes mellitus with diabetic polyneuropathy (principal); I10 Essential (primary) hypertension; Z79.4 Long term (current) use of insulin
CPT/HCPCS: 36415; 80053; 80061; 83036

== ENCOUNTER 2025-06-01 11:19 | Outpatient (REF) | payer MEDICARE, SELFPAY ==
--- OUTSIDE RECORDS SUMMARY | 2025-04-17 04:20 | XMS_ITS ---
Author Organization [facility] Address [address] [place] [address] Care Team Providers Care Electrical Engineering Technician Name Role Phone Yuriy GARCIA, Lyndsay Primary Care Provider Bang Moore Unavailable [phone] REASON FOR VISIT sccreening,hx polyps Encounters Encounter Location Date Provider Diagnosis [facility] [place] [address] [place], [place] [phone] 04/17/2025 Bang Little Plan Of Treatment No Information Progress Notes * CHANTELLE FRIEDMANDOB: [birth year] (74 yo F)Acc No.[id number]:04/17/2025 COLON WITH MAC Patient: CHANTELLE VIDAL Provider: Melany Little MD :1950 A ge:74 Y S ex:Female Date:04/17/2025 Address:[address] [place] [address] [facility] Pcp:Lyndsay Yan MD Subjective: * Chief Complaints: * 1 . Sccreening,hx polyps. * Medical History: Objective: * Vitals: Assessment: Plan: * Treatment: * * The named appointment provid er may or may not be the originator of this progress note, and it is not deemed complete until electronically signed by the appointment provider. Sign off status: Pending * Provider: Melany Little MD Date: 04/17/2025 Generated for Cristopher gomez/Ashwini/eTransmitting on: 06/01/2025 01:03 PM EDT
--- OUTSIDE RECORDS SUMMARY | 2025-06-01 13:03 | XMS_ITS | Encounter Summary ---
Author Organization [facility] Address [address] [place] [address] Phone Care Team Providers Care Last Sorter Name Role Phone Ellen Yan MD Primary Care Provider +1- [phone] Encounter Details Date Type Department Care Team (Late st Contact Info) Description 04/01/2022 Telephone [facility] [address] [place] [address] Jim Santiago MD [address] [place] [phone] Social History Tobacco Use Types Packs/Day Years [...] over the weekend. Pls call her at [phone] * Telephone Encounter - Kassi Sotelo - 04/01/2022 10:50 AM EDT Pt called, her insurance will not cover the script for joaquín. It needs a PA please advise Thank you documented in this encounter Plan of Treatment Upcoming Encounters Date Type Department Care Team (Late st Contact Info) Description 09/28/2025 1:30 PM EST [facility] [address] [place] [address] Sorin Carpio MD [address] [facility] [address] [place] [address] documented as of this encounter Visit Diagnoses Not on filedocumented in this encounter Care Teams Last Sorter Relationship Specialty Start Date End Date Ellen Yan MD [facility] [place] [address] PCP - General Internal Medicine 12/03/20 documented as of this encounter
== END 2025-06-01 11:20 | disposition home or self-care (01) ==
LOC: HO.MAMMO 11:19
PROVIDERS: PCP Internal Medicine; Visit Provider Internal Medicine
DX: Z12.31 Encounter for screening mammogram for malignant neoplasm of breast (principal)
CPT/HCPCS: 77063; 77067

== ENCOUNTER → 2025-06-01 11:30 | Outpatient (BNV) | payer MEDICARE, SELFPAY | PROVIDERS: PCP Internal Medicine; Visit Provider Internal Medicine | DX: Z12.31 Encounter for screening mammogram for malignant neoplasm of breast (principal) | CPT/HCPCS: 77063; 77067 ==

== ENCOUNTER 2025-06-07 10:24 | Outpatient (AMB) | payer MEDICARE, SELFPAY ==
--- OUTSIDE RECORDS SUMMARY | 2025-04-17 04:20 | XMS_ITS ---
Author Organization [facility] Address [address] [place] [address] Care Team Providers Care Correctional Counselor Name Role Phone Yuriy GARCIA, Lyndsay Primary Care Provider Bang Moore Unavailable [phone] REASON FOR VISIT sccreening,hx polyps Encounters Encounter Location Date Provider Diagnosis [facility] [place] Outpatient [address] [place], [place] [phone] 04/17/2025 Bang Little Plan Of Treatment No Information Progress Notes * CHANTELLE FRIEDMANDOB: [birth year] (74 yo F)Acc No.[id number]:04/17/2025 COLON WITH MAC Patient: CHANTELLE VIDAL Provider: Melany Little MD :1950 A ge:74 Y S ex:Female Date:04/17/2025 Address:[address] [place] [address] [facility] Pcp:Lyndsay Yan MD Subjective: * Chief Complaints: [...] MD Date: 0 04/17/2025 Generated for Cristopher gomez/Arnoldog/eTransmitting on: 0 06/07/2025 11:17 AM EDT
--- NOTE | 2025-06-07 10:26 | A.OFFVIS_ITS ---
Intake Visit Reasons: 6m/MRI Intake Note: Patient is present for 6M/MRI Urology Medication:NONE Antibiotic Allergy:PENICILLINS Blood Thinner:NONE Commercial Relationship Manager Required: No Allergies codeine (Codeine) Allergy (Severe, Verified 06/07/25 12:08) DIFFICULTY BREATHING Penicillins Adverse Reaction (Intermediate, Verified 06/07/25 12:08) stomach upset semaglutide (From Ozempic) Adverse Reaction (Verified 06/07/25 12:08) Vomiting Medication List - Last Reconciled 06/07/25 by MANE Simpson-CHUY adalimumab (Humira(CF) Pen) 40 mg (0.4 mL) subcut QWEEK 30 days albuterol sulfate 90 mcg/actuation 2 puffs inhalation Q6H PRN blood sugar diagnostic (Invictus MedicalTouch Ultra Test strips) USE 3 TIMES DAILY blood-glucose sensor (Sports [employer] Network G7 Sensor device) CHANGE EVERY 10 DAYS DIRECTED blood-glucose,marine meteorologist,cont (Dexcom G7 Shuttle Final Inspector) As directed aaqgdiywxx-lvsijuom-qlgdswyurr 160-9-4.8 mcg/actuation (Breztri Aerosphere) 2 inhalations inhalation BID 30 days bumetanide 1 mg PO DAILY cholecalciferol (vitamin D3) 50 mcg PO DAILY coQ10 (ubiquinol) (Qunol Meng CoQ10) 100 mg PO BID diclofenac sodium 1% 4 grams topical QID gabapentin (Neurontin) 300 mg PO BEDTIME insulin lispro (Humalog U-100 Insulin) Inject up to 80 units with patch pump daily subcutaneously daily; lansoprazole (Prevacid 24Hr) 15 mg PO DAILY leflunomide 10 mg PO DAILY lidocaine 5% 3 patches topical DAILY lisinopril 30 mg PO DAILY pen needle, diabetic (Novofine 32) Use daily As directed for insulin pen needle, diabetic (BD Ultra-Fine Opal Pen Needle) Use 4x a day As directed pravastatin 40 mg PO BEDTIME sub-q insulin device, 40 unit (V-GO 40 device) USE DIRECTED Toujeo Max U-300 SoloStar (insulin glargine U-300 conc) 50 units (0.1667 mL) subcut DAILY 30 days NS HPI Comments Details: Paola is a pleseant 74 year old female patient of Dr. Yan. She has a PMH CKD stage 3, diabetic retinopathy, dyslipidemia, essential hypertenstion, IDDM, obesity, osteopenia, postlaminectomy syndrome, spinal stenosis of lumbar region with radiculopathy, and spondylosis of lumbar spine. She presents to the office today for follow-up of her clear cell renal cell carcinoma. Patient is status post renal biopsy and cryoablation on 05/27/23. Recent renal imaging results were reviewed with the patient today MRI 06/05 overall stable without abnormal enhancement. Status post treatment changes in the exophytic lesion of the upper pole of the left kidney. Bilateral renal cysts. She continues to follow-up with pulmonology and has a upcoming CT of the chest scheduled for June with a follow-up with Dr. Whittington in July. She also reports following up with nephrology and endocrinology for question of hyper/hypo vitamin-D. She also continues to follow-up with oncology and her PCP. She currently denies any bothersome urinary issues or concerns. In office urinalysis results reviewed with the patient today. Patient with PT1A renal cell carcinoma [place] grade 3. When asked she denies urinary urgency, urinary frequency, incontinence, nocturia, hematuria, dysuria, foul smelling urine, changes to urinary stream, flank pain, fever, and or chills. She is happy with her current voiding parameters. She otherwise offers no issues or concerns at this time. We did discuss surveillance monitoring with CT/MRI at 6 months, 2 years, and 5 years and renal ultrasounds and between. [facility] Medical History Diabetic neuropathy associated with diabetes mellitus due to underlying condition Chronic bronchitis Adalimumab (Humira) long-term use Osteoarthritis of left knee Hyperparathyroid bone disease Hypogammaglobulinemia Trochanteric bursitis of both hips Leg pain, bilateral Herpes zoster vaccination declined COVID-19 vaccine dose declined Diabetic retinopathy Tubular adenoma of colon Osteopenia History of severe acute respiratory syndrome coronavirus 2 (SARS-CoV-2) disease Obesity due to excess calories 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 Postlaminectomy syndrome MGUS (monoclonal gammopathy of unknown significance) 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 mellitus) Diabetic retinopathy associated with type 2 diabetes mellitus CKD (chronic kidney disease) stage 3, GFR 30-59 ml/min 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 GERD (gastroesophageal reflux disease) Type 2 diabetes mellitus with diabetic polyneuropathy Essential hypertension Dyslipidemia Surgical History Hx of colonoscopy Hx laparoscopic cholecystectomy Hx of tonsillectomy Hx of cataract surgery History of back surgery Family History Mother Diabetes CVD (cardiovascular disease) HTN (hypertension) Father Hodgkin disease Brother Hodgkin disease Sister Pancreatic cancer Sister Lung cancer Non-Hodgkin lymphoma Paternal Uncle Colon cancer Social History Household Members: None Housing: Condominium Alcohol intake: never Patient Tobacco Use Status: Former Tobacco user Tobacco use type: Cigarette Cigarettes Per Day: 50 Years Smoked: 20 e-Cigarette/Vaping Use: Never Used Advance Directives Date on File: 02/08/22 service: No Current occupational status: retired Cognitive needs: No Hearing needs: No Vision needs: Yes Review of Systems Const Reports as per HPI Eyes Reports no additional complaints ENT Reports no additional complaints Card Reports as per HPI Resp Reports no additional complaints GI Reports as per HPI Reports as per HPI Musc Reports as per HPI Neuro Reports as per HPI Psych Reports no additional complaints Endo Reports as per HPI Eduardo/Lymph Reports no additional complaints Aller/Immun Reports no additional complaints Physical Exam Const General: cooperative, healthy appearing, comfortable, no acute distress, well developed, alert and awake Nutritional Appearance: overweight Orientation/consciousness: patient oriented x3 Limitations: no limitations HEENT Head: Yes normal to inspection, Yes normocephalic and Yes atraumatic Ears: hearing grossly normal bilaterally Eyes General: appearance normal, both eyes and all related structures Neck Neck: Yes normal visual inspection and Yes trachea midline Chest Chest palpation & inspection: normal inspection of the chest Resp Effort & Inspection: normal respiratory effort and able to speak in complete sentences Cardio Rate: regular rate GI Inspection: Yes normal to inspection General: Yes no CVA tenderness Back/Spine/Pelvis Back: no CVA tenderness Skin General skin exam: no rashes or lesions noted Neuro General: patient oriented x3 Extrem General: Yes normal to inspection Psych Appearance: grossly normal and well kempt Mental Status: mental status grossly normal Speech and movement: Normal speech and movement present and Clear speech present Affect: normal affect Attitude: cooperative Thought process: Normal thought process present Thought content: Normal thought content present Insight: Good insight present (Psych) Judgement: Good judgement present (Psych) Results AMB Urinalysis, Automated UA Leukoctes 0 Mary/uL Last Edit by AXEL Evangelista on 06/07/25 10:42 UA Nitrite Negative Last Edit by Steph Vivar [facility] on 06/07/25 10:42 UA Urobilinogen 0.2 mg/dL Last Edit by Steph Vivar [facility] on 06/07/25 10:4 2 UA Protein 0 mg/dL Last Edit by Steph Vivar [facility] on 06/07/25 10:42 UA pH 6.0 Last Edit by Steph Vivar [facility] on 06/07/25 10:42 UA Blood 0 Rajinder/uL Last Edit by Steph Vivar [facility] on 06/07/25 10:42 UA Specific Lawson 1.010 Last Edit by Steph Vivar [facility] on 06/07/25 10: 42 UA Ketone Negative Last Edit by Steph Vivar [facility] on 06/07/25 10:42 UA Bilirubin 0 mg/dL Last Edit by Steph Vivar [facility] on 06/07/25 10:42 UA Glucose 0 mg/dL Last Edit by Steph Vivar [facility] on 06/07/25 10:42 Results Reviewed Results Reviewed: Laboratory Last Values Urine pH (Auto) 6.0 06/07/25 10:41 Specific Lawson (Auto) 1.010 06/07/25 10:41 Urine Protein (Auto) 0 mg/dL 06/07/25 10:41 Glucose (UA)(Auto) 0 mg/dL 06/07/25 10:41 Urine Ketones (Auto) Negative 06/07/25 10:41 Urine Blood (Auto) 0 Rajinder/uL 06/07/25 10:41 Urine Nitrite (Auto) Negative 06/07/25 10:41 Urine Bilirubin (Auto) 0 mg/dL 06/07/25 10:41 Urine Urobilinogen (Auto) 0.2 mg/dL 06/07/25 10:41 Leukocyte Esterase (Auto) 0 Mary/uL 06/07/25 10:41 Date of Service: 08/15/25 Procedure(s): MR abdomen wo/w con FINDINGS: Limited by patient's breathing motion artifact. LUNG BASES: No enhancing lesion LIVER, GALLBLADDER, AND BILIARY TREE: Liver measures 15 cm. No focal mass. Main portal vein is patent. No intrahepatic biliary ductal dilatation. Gallbladder is absent. Common bile duct measures 4 mm. PANCREAS: There is a cluster of fluid signal characteristic lesions in the body of the pancreas with thin septations. There is a 3 mm fluid signal characteristic in the body and tail of the incus. The main pancreatic duct measures 2 mm. No peripancreatic fluid collection. SPLEEN: 8 cm. No focal mass. ADRENAL GLANDS: No nodular lesions. KIDNEYS AND URETERS: Right kidney: There is a 19 mm exophytic, nonenhancing fluid signal characteristic lesion in the lower pole. No enhancing mass. No hydronephrosis. Normal enhancement of the renal parenchyma. Left kidney: There is a 29 mm exophytic mixed hypointense T2 nonenhancing lesion in the upper pole. Multifocal subcentimeter cyst in the midportion and lower pole, multiple. Renal cortical thinning. No hydronephrosis. Volume loss slightly asymmetric when compared with the site. GASTROINTESTINAL TRACT: No intestinal obstruction pattern. No ascites. ABDOMINAL WALL: No gross umbilical hernia. LYMPH NODES: No lymphadenopathy, mesenteric or retroperitoneal. VASCULAR: No aneurysm or dissection abdominal aorta. OSSEOUS STRUCTURES: Multilevel thoracolumbar spondylosis. Central herniated disc at T9-10 and central spinal canal stenosis at L4-5 L3-4 and L5-S1 on a multifactorial basis no fully evaluated. IMPRESSION: Overall stable without abnormal enhancement. Status post treatment changes in the exophytic lesion upper pole left kidney. Bilateral renal cysts. Stable cystic lesions in the pancreas. Multilevel thoracolumbar spondylosis resulting in central spinal canal stenosis from L3-4 to L5-S1 and central herniated disc at T9-T10. Assessment & Plan Assessment & Plan (1) Clear cell renal cell carcinoma: Comment: Mass was treated with ablative procedure May 2023 Code(s): C64.9 - Malignant neoplasm of unspecified kidney, except renal pelvis Category: Medical Plan In office urinalysis results with the patient today; as noted above. Recent MRI results reviewed with the patient today Patient currently denies any bothersome urinary issues or concerns. She reports be happy with current voiding parameters. We discussed importance of continuation of following up with providers for continuity of care and to avoid any delay in treatment. Will continue with surveillance monitoring at this time. Will obtain renal ultrasound in 6 months. Follow-up in 6 months with imaging to be completed prior; or sooner with any issues, concerns, and or questions. Orders: Orders AMB Urinalysis Automated Today Z13.9 - Encounter for screening, unspecified US renal BI 6 Months C64.9 - Malignant neoplasm of unspecified kidney, except renal pelvis Patient Instructions: The patient had an opportunity to ask questions regarding the treatment plan. All questions were answered. Physical exam, labs, and imaging were discussed and reviewed in detail. As well as risks, benefits, and discussion of treatment choices. No major barriers to understanding were identified. The patient expressed understanding and agreement with the above treatment plan. The patient was made aware they should contact our office by phone for worsening of their current condition, the appearance of new symptoms, or with any questions or concerns. Compliance is encouraged with any medications and follow up testing that is ordered. It is a privilege to be allowed the opportunity to participate in? your urological care.? Again, if you have any questions or concerns If you have any questions or concerns please do not hesitate to contact me. The office is [phone]. This note is constructed using voice recognition software. While every effort has been made to ensure accuracy health and social care teacher errors may have been included. Yours sincerely, YANETH [facility] Coding Level of Care Code Est Pt Level 3 (61824) Complex EM visit Add On G2211 Diagnoses Clear cell renal cell carcinoma C64.9
--- OUTSIDE RECORDS SUMMARY | 2025-06-07 11:17 | XMS_ITS | Encounter Summary ---
Author Organization [facility] Address [address] [place] [address] Phone Care Team Providers Care Senior Gis Analyst Name Role Phone Ellen Yan MD Primary Care Provider +1- [phone] Encounter Details Date Type Department Care Team (Late st Contact Info) Description 04/01/2022 Telephone [facility] [address] [place] [address] Jim Santiago MD [address] [place] [phone] Social History Tobacco Use Types Packs/Day Years [...] over the weekend. Pls call her at [phone] * Telephone Encounter - Kassi Sotelo - 04/01/2022 10:50 AM EDT Pt called, her insurance will not cover the script for joaquín. It needs a PA please advise Thank you documented in this encounter Plan of Treatment Upcoming Encounters Date Type Department Care Team (Late st Contact Info) Description 09/28/2025 1:30 PM EST Office [facility] [address] [place] [address] Sorin Carpio MD [address] [facility] [address] [place] [address] documented as of this encounter Visit Diagnoses Not on filedocumented in this encounter Care Teams Senior Gis Analyst Relationship Specialty Start Date End Date Ellen Yan MD [facility] [place] [address] PCP - General Internal Medicine 12/03/20 documented as of this encounter
--- OUTSIDE RECORDS SUMMARY | 2025-06-07 11:18 | XMS_ITS | Encounter Summary ---
Author Organization [facility] Address [address] [facility] 200 [place] [address] Phone Care Team Providers Care Manager Wellness Name Role Phone Ellen Yan MD Primary Care Provider +1- [phone] Encounter Details Date Type Department Care Team ([facility] Contact Info) Description 04/24/2021 Documentation Only [facility] [address] [facility] [address] [place] [address] Meena Kemp [place] Social History [...] Encounters Date Type Department Care Team ([facility] Contact Info) Description 09/28/2025 1:30 PM EST Office Visit [facility] [address] [place] [address] Sorin Carpio MD [address] [facility] [address] [place] [address] documented as of this encounter [...] U/L Total Bilirubin 0.3 MG/DL eGFR Non-Afr Surinamese 35 Total Protein, Serum 6.2 Blood specimen (specimen) 04/09/2021 Historical Provider LAB BLOOD ORDERABLES Sidra l Result * CBC (Includes Diff/Plt) (External Lab) (04/09/2021) WBC 12.2 K/uL Red Blood Cell Count 4.17 Hemoglobin 11.8 g/dL Hematocrit 38.5 % MCV 92.3 MCH 28.3 MCHC 30.6 RDW 14.1 Platelet Count 312 MPV 11.1 Blood specimen (specimen) 04/09/2021 Historical Provider LAB BLOOD ORDERABLES Sidra l Result documented in this encounter Visit Diagnoses Not on filedocumented in this encounter Care Teams Manager Wellness Relationship Specialty Start Date End Date Ellen Yan MD [facility] [place] [address] PCP - General Internal Medicine 12/03/20 documented as of this encounter
--- OUTSIDE RECORDS SUMMARY | 2025-06-07 11:18 | XMS_ITS | Clinical Summary ---
Author Organization [facility] Address 100 [facility] [address] [place] [address] Phone Care Team Providers Care Score Caller Name Role Phone Ellen Yan MD Primary Care Provider +1- [phone] Allergies Active Allergy Reactions Criticality Noted Date [...] Encounters Date Type Department Care Team Description 04/24/2025 Telephone [facility] [address] [place] [address] Sorin Carpio MD 04/06/2025 1:00 PM EDT [facility] [address] [place] [address] Sorin Carpio MD Stage 3 chronic kidney disease, not otherwise specified (HCC) (Primary Dx); 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 from Last 3 Months Family History Medical [...] Sign Reading Time Taken Comments Blood Pressure 118/64 04/06/2025 12:49 PM EDT Pulse 82 04/06/2025 12:49 PM EDT Temperature - - Respiratory Rate - - Oxygen Saturation 94% 04/06/2025 12:49 PM EDT Inhaled Oxygen Concentration - - Weight 101 kg (222 lb) 04/06/2025 12:49 PM EDT Height 157.5 cm (5' 2 ) 08/05/2023 9:40 AM EDT Body Mass Index 40.6 08/05/2023 9:40 AM EDT Plan of Treatment Upcoming Encounters Date Type Department Care Team (Late st Contact Info) Description 09/28/2025 1:30 PM EST [facility] [address] [place] [address] Sorin Carpio MD [address] [facility] [address] [place] [address] Health Maintenance Due Date Last [...] Hemoglobin A1C 05/06/2023 02/04/2023 Influenza Vaccine (#1) 2025 Hepatitis B Vaccine Aged Out No [...] AM EDT) Hemoglobin A1C 7.2(H) (4.0-5.6) % [facility] Comment: MONITORING: In known diabetic patients, hemoglobin A1c targets should be discussed with health care provider. DIAGNOSTIC USE: The [place] Diabetes Association (ADA) and the World Health [...] Supplement 1 Testing performed or reported by [facility], a Service of [facility], [address] [place] [address] Lamont Ortega MD, Process Control Technician [facility]# [id number] Blood specimen (specimen) Venous blood / Unknown 02/04/2023 10:21 AM EDT 02/04/2023 10:34 AM EDT Jim Santiago MD LAB BLOOD ORDERABLES Final Re sult [facility] from Last 3 Months or Most Recently Relevant to Health Maintenance Insurance [place] [employer] [phone] [place] [employer] [phone] Care Teams Score Caller Relationship Specialty Start Date End Date Ellen Yan MD [address] [facility] [place] [address] PCP - General Internal Medicine 12/03/20
--- OUTSIDE RECORDS SUMMARY | 2025-06-07 11:18 | XMS_ITS | Patient Health Record ---
Author Organization [facility] Address [address] [place] [address] Care Team Providers Care Lounge Car Attendant Name Role Phone Yuriy GARCIA, Lyndsay Primary Care Provider Bang Moore Unavailable [phone] Allergies Allergen (clinical drug ingredient) Drug/Non Drug Allergy documented on EMR Reaction Allergy Type Onset Date Status semaglutide Ozempic Unknown Drug Allergy Activ e codeine Codeine Sulfate Unknown Drug Allergy A ctive Results Component Value Reference Range Notes Glucose, Whole Blood Reviewed date:04/17/2025 11:53:49 PM Interpretation: Performing Lab:[facility], [address] [place] [phone] Notes/Report: Glucose, Whole Blood 168 60-115 mg/dL METER # : [id number] Pathology (Not yet reviewed by provider) Interpretation: Performing Lab:[facility], [address] [place] [phone] Notes/Report: Reason For Referral No Information Medications Medication [...] Colon cancer screening (Z12.11) Active confirmed Problem 01497053 Epigastric abdominal pain (R10.13) Active confirmed Problem 786519033 History of adenomatous polyp of colon (Z86.010) Active confirmed Problem Diarrhea (95925621) Diarrhea (R19.7) Active con firmed Problem Change in bowel habit (86985278) Change in bowel habit (R19.4) Active confirmed Problem History of polyp of colon (situation) (441116997) Personal history of colonic polyps (Z86.010) Active confirmed Problem 26919321 Calculus of gallbladder without cholecystitis without obstruction (K80.20) Active confirmed Problem 868854794 Gastroesophageal reflux disease without esophagitis (K21.9) Active confirmed Problem Preprocedural examination (882424347832013) Preprocedural examination (Z01.818) Active confirmed Problem 07533133 Diarrhea, unspecified type (R19.7) Active confirmed Problem 809217892 RUQ abdominal pa in (R10.11) Active confirmed Problem 911354593 RUQ pain (R10.11) Active confirmed Problem 405645545 Left renal mass (N28.89) Active confirmed Problem 34941746519082504 Abnormal ultrasound of left kidney (R93.422) Active confirmed Vital Signs Blood pressure diastolic 11 mm Hg 01/12/2025 Height 62 in 01/12/2025 Blood pressure systolic 111 mm Hg 01/12/2025 Weight 230 lbs 01/12/2025 BMI 42.06 kg/m2 01/12/2025 Procedures Procedure Date Ordered Date Performed Result Body Sit e COLONOSCOPY 01/12/2025 N/A Encounters Encounter Location Date Provider Diagnosis [facility] [address] [place] [id number] 04/17/2025 Bang [facility] [address] [place] [address] 01/12/2025 Bang Little Personal history of colonic [...] WWO CONTRAST 04/05/2023 Electrolytes 04/05/2023 Creatinine 04/05/2023 Pathology 04/17/2025 CT abdomen pelvis wo/w con 04/15/2023 US abdomen complete 03/24/2023 Future Test Test Name Order Date COLONOSCOPY 09/02/2019 Insurance Providers Payer Name Payer Address Payer Phone Subscriber Number Group Number Insured Name Patient Relationship to Insured Coverage Start Date Coverage End Date [employer] [address] [place] [address] [id number] PAOLA FRIEDMAN Self - patient is the insured [...]
== END 2025-06-07 11:04 | disposition home or self-care (01) ==
LOC: HO.HUSH 10:25
PROVIDERS: PCP Internal Medicine; Visit Provider Nurse Practitioner Family
DX: Z13.9 Encounter for screening, unspecified (principal); C64.9 Malignant neoplasm of unspecified kidney, except renal pelvis
CPT/HCPCS: 99213; G2211

== ENCOUNTER → 2025-06-07 10:24 | Outpatient (BNVA) | payer MEDICARE, SELFPAY | PROVIDERS: PCP Internal Medicine; Visit Provider Nurse Practitioner Family | DX: Z71.2 Person consulting for explanation of examination or test findings (principal); Z85.528 Personal history of other malignant neoplasm of kidney | CPT/HCPCS: 81003; 99212 ==

== ENCOUNTER 2025-06-19 10:00 | Outpatient (RCR) | payer MEDICARE, SELFPAY ==
--- NOTE | 2025-05-29 11:58 | MHC.PT.EP ---
[facility] [place] Office [place] [facility] [place] Office [address] Elen Peralta [address] [phone] F: [phone] F: [phone] F: [phone] F: [phone] Physical Therapy Plan of Care Date of Evaluation: 05/29/25 Date of Surgery: n/a Diagnosis: B OA knee Assessment: Patient is a 74 year old female presenting to PT with complaints of pain in her B knees. Pt reports onset of pain began couple months ago due to insidious onset. She presents today with impairments in pain, ROM, knee strength, hip strength. Pt's current occupation is retired, with baseline physical activities including ambulating, stair negotiation, ADLs. 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 Clinical presentation today is most consistent with signs and sx associated with B knee pain and pt will benefit from skilled PT 2 week x 4 weeks to address the following problems and impairments noted upon evaluation: pain, ROM, knee strength, hip strength. These problems limit the patient with the following functional activities: ambulating, stair negotiation, ADLs. The prescribed treatment plan of care is medically necessary. Co-morbidities of RA, osteopenia, DM, hx kidney cancer were identified and taken into considerations of plan of care. Pt was educated on HEP, role of PT, prognosis, POC. Frequency and Duration: The patient will be seen 2 x week x 4 weeks Short Term Goals: Pt will demonstrate improved hip MMT strength by 1/3 grade in 2 weeks. Pt will demonstrate improved knee MMT strength by 1/3 grade in 2 weeks. Long-Term Goals: Pt will demonstrate improved LEFI score by 9 points in 4 weeks for improved functional mobility. Pt will demonstrate ability to ambulate with min to no pain in 4 weeks for return to PLOF. Pt will demonstrate improved tolerance to ADLs in 4 weeks. Treatment Plan: Modalities to reduce pain, spasms and effusion. Manual therapy to restore motion and function. Therapeutic exercise to improve strength and flexibility. Neuromuscular re-education for posture and balance. Therapeutic activities to return to functional activities of daily living. Electronically signed by: Eda Boggs, PT, DPT, ATC Please sign and return to therapist. Thank you for your referral.
--- NOTE | 2025-07-25 09:28 | MHC.PT.DC ---
[facility] [place] [facility] [place] Office [place] Office [address] Elen Peralta [address] [phone] F: [phone] F: [phone] F: [phone] F: [phone] Physical Therapy Discharge Report Diagnosis: B OA knee Date of Surgery: n/a Date of Evaluation: 05/29/25 Date of Discharge: 07/25/25 Treatments to Date: 5 Cancellations to Date: 3 No Shows to Date: 0 Discharge Status: Improved Function Independent with HEP Discharge Summary: At last visit pt was feeling improvements and wanted to be placed on 30 day hold. She has not returned in 30 days so we will d/c as planned. Electronically signed by: Eda Boggs, PT, DPT, ATC Please sign and return to therapist. Thank you for your referral.
== END 2025-07-25 09:28 | disposition home or self-care (01) ==
LOC: HO.PTCHIC 10:00
PROVIDERS: PCP Internal Medicine; Visit Provider Student in an Organized Health Care Education/Training Program
DX: M17.0 Bilateral primary osteoarthritis of knee (principal)
CPT/HCPCS: 97110; 97162

== ENCOUNTER 2025-06-26 13:50 | Outpatient (AMB) | payer MEDICARE, SELFPAY ==
--- OUTSIDE RECORDS SUMMARY | 2025-04-17 04:20 | XMS_ITS ---
Author Organization [facility] Address [address] [place] [address] Care Team Providers Care Manager Neonatal Name Role Phone Yuriy GARCIA, Lyndsay Primary Care Provider Bang Moore [phone] REASON FOR VISIT sccreening,hx polyps Encounters Encounter Location Date Provider Diagnosis [facility] [place] Outpatient [address] [place], [place] [phone] 04/17/2025 Bang Little Plan Of Treatment No Information Progress Notes * CHANTELLE FRIEDMANDOB: [birth year] (74 yo F)Acc No.[id number]:04/17/2025 COLON WITH MAC Patient: CHANTELLE VIDAL Provider: Melany Little MD :1950 A ge:74 Y S ex:Female Date:04/17/2025 Address:[address] [place] [address] [facility] Pcp:Lyndsay Yan MD Subjective: * Chief Complaints: [...] MD Date: 0 04/17/2025 Generated for Cristopher ng/Famoreg/eTransmitting on: 0 06/26/2025 07:08 PM EDT
--- NOTE | 2025-06-26 13:58 | MHC.OFFVIS ---
Vital Signs 06/26/25 13:59 Height 5 ft 2 in Weight 219 lb BMI 40.1 Intake Visit Reasons: New Pt- Diabetic foot exam Intake Note: Paola is a 74 year old female who presents today for a Bilateral Diabetic foot exam. Patient mentions her Glucose was 120 and her last A1C was 6.8. She repots feeling slight tingling or numbness in her foot but her gabapentin medication has been helping her with this. Allergies codeine (Codeine) Allergy (Severe, Verified 06/26/25 14:00) DIFFICULTY BREATHING Penicillins Adverse Reaction (Intermediate, Verified 06/26/25 14:00) stomach upset semaglutide (From Ozempic) Adverse Reaction (Verified 06/26/25 14:00) Vomiting Medication List - Last Reconciled 06/26/25 by Pankaj Cole DPM adalimumab (Humira(CF) Pen) 40 mg subcut QWEEK albuterol sulfate 90 mcg/actuation 2 puffs inhalation Q6H PRN blood sugar diagnostic (Azteq MobileTouch Ultra Test strips) USE 3 TIMES DAILY blood-glucose sensor ([employer] G7 Sensor device) CHANGE EVERY 10 DAYS DIRECTED blood-glucose,shuttle filler,cont (Dexcom G7 Publishing Director) As directed azcmyiflpe-stqseytg-wjgyskents 160-9-4.8 mcg/actuation (Breztri Aerosphere) 2 inhalations inhalation BID 30 days bumetanide 1 mg PO DAILY cholecalciferol (vitamin D3) 50 mcg PO DAILY coQ10 (ubiquinol) (Qunol Meng CoQ10) 100 mg PO BID diclofenac sodium 1% 4 grams topical QID gabapentin (Neurontin) 300 mg PO BEDTIME insulin lispro (Humalog U-100 Insulin) Inject up to 80 units with patch pump daily subcutaneously daily; lansoprazole (Prevacid 24Hr) 15 mg PO DAILY leflunomide 10 mg PO DAILY lidocaine 5% 3 patches topical DAILY lisinopril 30 mg PO DAILY pen needle, diabetic (Novofine 32) Use daily As directed for insulin pen needle, diabetic (BD Ultra-Fine Opla Pen Needle) Use 4x a day As directed pravastatin 40 mg PO BEDTIME sub-q insulin device, 40 unit (V-GO 40 device) USE DIRECTED Toujeo Max U-300 SoloStar (insulin glargine U-300 conc) 50 units (0.1667 mL) subcut DAILY 30 days NS HPI HPI New Pt- Diabetic foot exam: Details: The patient is a 74-year-old female past medical history diabetes mellitus type 2 with peripheral neuropathy, CKD, clear cell renal carcinoma status post ablation, hypertension, osteoarthritis of the knees, seropositive rheumatoid arthritis, presents for initial evaluation of diabetic foot check. The patient has a history of Diabetes Mellitus, which is currently well-controlled with a hemoglobin A1c of 6.8%. She experiences burning, numbness, and tingling in her feet, for which she is taking gabapentin and finds moderate relief from. She practices preventative care by moisturizing her feet regularly to prevent dryness and fissures, and she avoids walking barefoot to prevent injuries. She also reports difficulty in cutting her toenails, which is managed with assistance during podiatry visits. She denies any history of ulcerations her feet. [facility] Medical History Diabetic neuropathy associated with diabetes mellitus due to underlying condition Chronic bronchitis Adalimumab (Humira) long-term use Osteoarthritis of left knee Hyperparathyroid bone disease Hypogammaglobulinemia Trochanteric bursitis of both hips Leg pain, bilateral Herpes zoster vaccination declined COVID-19 vaccine dose declined Diabetic retinopathy Tubular adenoma of colon Osteopenia History of severe acute respiratory syndrome coronavirus 2 (SARS-CoV-2) disease Obesity due to excess calories 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 Postlaminectomy syndrome MGUS (monoclonal gammopathy of unknown significance) 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 mellitus) Diabetic retinopathy associated with type 2 diabetes mellitus CKD (chronic kidney disease) stage 3, GFR 30-59 ml/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 GERD (gastroesophageal reflux disease) Type 2 diabetes mellitus with diabetic polyneuropathy Essential hypertension Dyslipidemia Surgical History Hx of colonoscopy Hx laparoscopic cholecystectomy Hx of tonsillectomy Hx of cataract surgery History of back surgery Family History Mother Diabetes CVD (cardiovascular disease) HTN (hypertension) Father Hodgkin disease Brother Hodgkin disease Sister Pancreatic cancer Sister Lung cancer Non-Hodgkin lymphoma Paternal Uncle Colon cancer Social History Household Members: None Housing: Condominium Alcohol intake: never Patient Tobacco Use Status: Former Tobacco user Tobacco use type: Cigarette Cigarettes Per Day: 50 Years Smoked: 20 e-Cigarette/Vaping Use: Never Used Advance Directives Date on File: 02/08/22 service: No Current occupational status: retired Cognitive needs: No Hearing needs: No Vision needs: Yes Review of Systems Const All systems reviewed & are unremarkable except as noted in HPI and below Physical Exam Vital Signs: BMI result Body Mass Index 40.1 Extrem Other: *Bilateral Lower Extremity Focused Diabetic Foot Exam Vascular: DP/PT diminished/nonpalpable bilaterally; monophasic (loudly audible) on Doppler bilaterally. CFT<3s to digits, TG warm to cool, no pedal edema, pedal hair absent Derm: Skin: Dry plantar xerosis bilaterally. No open lesions, ulcerations, or calluses. Interdigital spaces: Clear, no maceration or fungal infection. Nails: Thickened elongated toenails x 10, bilateral halluces with subungual debris. Neuro: Protective sensation 10/10 intact to right foot, 10/10 intact to left foot. Msk: Deformities: No evidence of hammertoes, bunions, Charcot changes, or other structural abnormalities. Muscle strength: 5/5 in all muscle groups. Gait: Normal, no antalgic or steppage gait observed. Footwear Assessment: Shoes inspected; appropriate fit, no excessive wear, or foreign objects noted. Class finding: B Office Procedures AMB Debridement/Avulsion Podia 24954-Hluxiatsvvq of Nail 6+ (Debrided elongated, discolored, thickened nails x 10 with a sterile nail Nipper. The patient tolerated the procedure well with no complications.) Procedure code (CPT) selection complete Results Reviewed Results Reviewed: Laboratory Tests 05/30/25 08:05 Hemoglobin A1c % 6.9 H Assessment & Plan Assessment & Plan (1) Tinea unguium: Code(s): B35.1 - Tinea unguium Category: Medical Plan: Debrided elongated, discolored, thickened nails x 10 with a sterile nail Nipper. The patient tolerated the procedure well with no complications. Class B findings. The patient has a diagnosis of diabetes mellitus and presents with elongated, thickened toenails. Due to underlying diabetic neuropathy and mild vascular disease findings, the patient is at increased risk for complications such as ulceration, infection, and difficulty with self-care. Debridement of elongated toenails is medically necessary to prevent development of pressure-related lesions, reduce risk of secondary infection, and maintain foot health in her high-risk comorbidities. Follow up in 9 weeks. 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 No loss of protective sensation. Patient appears to have mild peripheral arterial disease, with no acute risk factors at this time. No plans for further testing/referrals for non-invasive vascular studies. Patient is at low risk for diabetic foot complications at this time. Recommendations: Continue routine foot care and daily self-inspection. Recommend moisturizing daily. Recommend supportive proper fitting shoe-wear. The patient may require diabetic shoes in the future. Reinforced diabetic foot education and risks from peripheral neuropathy. Neuropathy The patient is currently managing diabetic neuropathy with gabapentin, which helps alleviate symptoms of burning, numbness, and tingling. Regular foot checks and avoiding walking barefoot are advised to prevent injuries due to reduced sensation. Orders: Orders AMB Debridement/Avulsion Podiatry Today B35.1 - Tinea unguium Coding Level of Care Code New Pt Level 4 (70719) Diagnoses Tinea unguium B35.1 Type 2 diabetes mellitus with diabetic polyneuropathy, with long-term current use of insulin E11.42; Z79.4 Diabetes mellitus continuous churn buttermaker insulin use: with continuous churn buttermaker use CPT Codes Skin Debridement - CPT: 08147-Cjrrjbytuzw of Nail 6+ ([id number]) Time Spent (min) 30
[2025-06-26 13:59] VITALS: BMI 40.1
--- OUTSIDE RECORDS SUMMARY | 2025-06-26 19:08 | XMS_ITS | Patient Health Record ---
Author Organization [facility] Address [address] [place] [address] Care Team Providers Care Computer Systems Technician Name Role Phone Yuriy GARCIA, Lyndsay Primary Care Provider Bang Moore Unavailable [phone] Allergies Allergen (clinical drug ingredient) Drug/Non Drug Allergy documented on EMR Reaction Allergy Type Onset Date Status semaglutide Ozempic Unknown Drug Allergy Activ e codeine Codeine Sulfate Unknown Drug Allergy A ctive Results Component Value Reference Range Notes Glucose, Whole Blood Reviewed date:04/17/2025 11:53:49 PM Interpretation: Performing Lab:[facility], [address] [place] [phone] Notes/Report: Glucose, Whole Blood 168 60-115 mg/dL METER # : [id number] Pathology (Not yet reviewed by provider) Interpretation: Performing Lab:[facility], [address] [place] [phone] Notes/Report: Reason For Referral No Information Medications [...] Status Risk Notes Problem Colon cancer screening (590894018) Colon cancer screening (Z12.11) Active confirmed Problem 38903214 Epigastric abdominal pain (R10.13) Active confirmed Problem 989368600 History of adenomatous polyp of colon (Z86.010) Active confirmed Problem Diarrhea (44527327) Diarrhea (R19.7) Active con firmed Problem Change in bowel habit (08795711) Change in bowel habit (R19.4) Active confirmed Problem History of polyp of colon (situation) (280494685) Personal history of colonic polyps (Z86.010) Active confirmed Problem 78469964 Calculus of gallbladder without cholecystitis without obstruction (K80.20) Active confirmed Problem 127656417 Gastroesophageal reflux disease without esophagitis (K21.9) Active confirmed Problem Preprocedural examination (450303694661513) Preprocedural examination (Z01.818) Active confirmed Problem 25178587 Diarrhea, unspecified type (R19.7) Active confirmed Problem 586812729 RUQ abdominal pa in (R10.11) Active confirmed Problem 955427533 RUQ pain (R10.11) Active confirmed Problem 001316701 Left renal mass (N28.89) Active confirmed Problem 05000461081647120 Abnormal ultrasound of left kidney (R93.422) Active confirmed Vital Signs Blood pressure diastolic 11 mm Hg 01/12/2025 Height 62 in 01/12/2025 Blood pressure systolic 111 mm Hg 01/12/2025 Weight 230 lbs 01/12/2025 BMI 42.06 kg/m2 01/12/2025 Procedures Procedure Date Ordered Date Performed Result Body Sit e COLONOSCOPY 01/12/2025 N/A Encounters Encounter Location Date Provider Diagnosis [facility] [address] [place], [place] [phone] 04/17/2025 Bang Little [facility] [address] [place] [address] 01/12/2025 Bang Little Personal history of colonic [...] Date [employer] [address] [place]ARE[place] CHUA [phone] [id number] PAOLA FRIEDMAN Self - patient is the insured Medical (General) History Medical History History ICD Code IDDM Elevated Cholesterol Hypertension Rheumatoid arthritis Urinary incontinence- mild GERD-neg EGD in 2000 Neg. colonoscopy in 2000 and 08/2010 Denies OR,CVA,Lung disease,renal disease Bronchitis Edema of ankles Colonoscopy [...]
== END 2025-06-26 14:24 | disposition home or self-care (01) ==
LOC: HO.HPODS 13:51
PROVIDERS: PCP Internal Medicine; Visit Provider Student in an Organized Health Care Education/Training Program
DX: B35.1 Tinea unguium (principal); E11.42 Type 2 diabetes mellitus with diabetic polyneuropathy; Z79.4 Long term (current) use of insulin
CPT/HCPCS: 11721; 99203

== ENCOUNTER → 2025-06-26 13:50 | Outpatient (BNVA) | payer MEDICARE, SELFPAY | PROVIDERS: PCP Internal Medicine; Visit Provider Student in an Organized Health Care Education/Training Program | DX: E11.42 Type 2 diabetes mellitus with diabetic polyneuropathy (principal); L60.2 Onychogryphosis; B35.1 Tinea unguium; Z79.4 Long term (current) use of insulin | CPT/HCPCS: 11721; 99202 ==

== ENCOUNTER 2025-07-11 07:24 | Outpatient (REF) | payer MEDICARE, SELFPAY ==
--- OUTSIDE RECORDS SUMMARY | 2025-04-17 04:20 | XMS_ITS ---
Author Organization [facility] Address [address] [place] [phone] Care Team Providers Care Government Relations Analyst Name Role Phone Yuriy GARCIA, Lyndsay Primary Care Provider Bang Moore [phone] REASON FOR VISIT sccreening,hx polyps Encounters Encounter Location Date Provider Diagnosis [facility] [place] Outpatient [address] [place], [place] [phone] 04/17/2025 Bang Little Plan Of Treatment No Information Progress Notes * CHANTELLE FRIEDMANDOB: [birth year] (74 yo F)Acc No.[id number]:04/17/2025 COLON WITH MAC Patient: CHANTELLE VIDAL Provider: Melany Little MD :1950 A ge:74 Y S ex:Female Date:04/17/2025 Address:[address] [place] [address] [id number] Pcp:Lyndsay Yan MD Subjective: * Chief Complaints: [...] Little MD Date: 04/17/2025 Generated for Cristopher ng/Famoreg/eTransmitting on: 0 07/11/2025 07:27 AM EDT
--- NOTE | ~2025-07-11 | CT_ITS ---
CLINICAL HISTORY: R91.1 - Solitary pulmonary nodule CT chest without contrast Comparison: CT/SR - CT CHEST WO IV CON - 12/14/24 10:[address]/AK/SR - CT CHEST WO IV CON - 06/14/24 10:[address]/AK/SR - CT CHEST W IV CON - 12/01/23 10:32 EST Findings: The heart size is normal. The visualized thyroid and mediastinum are unremarkable. Stable 8 mm lung nodule within the right upper lobe anteriorly grossly unchanged at least since 12/01/2023 The visualized upper abdomen is unremarkable. The bones are intact. IMPRESSION: 1.Stable 8 mm lung nodule within the right upper lobe anteriorly grossly unchanged at least since 12/01/2023. No acute disease. This document has been electronically signed by: Kwasi Richmond MD on 07/11/2025 22:03:41
--- OUTSIDE RECORDS SUMMARY | 2025-07-11 07:27 | XMS_ITS | Encounter Summary ---
Author Organization [facility] Address [address] [place] [address] Phone Care Team Providers Care Architectural Practice Manager Name Role Phone Ellen Yan MD Primary Care Provider [phone]- [phone] Encounter Details Date Type Department Care Team (Late st Contact Info) Description 04/01/2022 Telephone [facility] [address] [place] [address] Jim Santiago MD [address] [place] [phone] Social History Tobacco Use Types Packs/Day Years [...] over the weekend. Pls call her at [phone] * Telephone Encounter - Kassi Sotelo - 04/01/2022 10:50 AM EDT Pt called, her insurance will not cover the script for joaquín. It needs a PA please advise Thank you documented in this encounter Plan of Treatment Upcoming Encounters Date Type Department Care Team (Late st Contact Info) Description 09/28/2025 1:30 PM EST Office Visit [facility] [address] [place] [address] Sorin Carpio MD [address] [facility] [address] [place] [address] documented as of this encounter Visit Diagnoses Not on filedocumented in this encounter Care Teams Architectural Practice Manager Relationship Specialty Start Date End Date Ellen Yan MD [place] [address] PCP - General Internal Medicine 12/03/20 documented as of this encounter
--- OUTSIDE RECORDS SUMMARY | 2025-07-11 07:28 | XMS_ITS | Encounter Summary ---
Author Organization [facility] Address [address] [facility] [address] [place] [address] Phone Care Team Providers Care Applied Research Director Name Role Phone Ellen Yan MD Primary Care Provider +1- [phone] Encounter Details Date Type Department Care Team ([facility] [address] Contact Info) Description 04/24/2021 Documentation Only [facility] [address] [facility] [address] [place] [address] Meena Kemp MA Social History [...] Upcoming Encounters Date Type Department Care Team ([facility] [address] Contact Info) Description 09/28/2025 1:30 PM EST Office Visit [facility] [address] [place] [address] Sorin Carpio MD [address] [facility] [address] [place] [address] documented as of this encounter [...] U/L Total Bilirubin 0.3 MG/DL eGFR Non-Afr Tanzanian 35 Total Protein, Serum 6.2 Blood specimen [...] on filedocumented in this encounter Care Teams Applied Research Director Relationship Specialty Start Date End Date Ellen Yan [place] [address] PCP - General Internal Medicine 12/03/20 documented as of this encounter
--- OUTSIDE RECORDS SUMMARY | 2025-07-11 07:28 | XMS_ITS | Patient Health Record ---
Author Organization [facility] Address [address] [place] [address] Care Team Providers Care Booking Police Officer Name Role Phone Yuriy GARCIA, Lyndsay Primary Care Provider Bang Moore Unavailable [phone] Allergies Allergen (clinical drug ingredient) Drug/Non Drug Allergy documented on EMR Reaction Allergy Type Onset Date Status semaglutide Ozempic Unknown Drug Allergy Activ e codeine Codeine Sulfate Unknown Drug Allergy A ctive Results Component Value Reference Range Notes Glucose, Whole Blood Reviewed date:04/17/2025 11:53:49 PM Interpretation: Performing Lab:[facility], [address] [place] [phone] Notes/Report: Glucose, Whole Blood 168 60-115 mg/dL METER # : [id number] Pathology (Not yet reviewed by provider) Interpretation: Performing Lab:[facility], [address] [place] [phone] Notes/Report: Reason For Referral No Information Medications [...] Status Risk Notes Problem Colon cancer screening (985032401) Colon cancer screening (Z12.11) Active confirmed Problem 12134673 Epigastric abdominal pain (R10.13) Active confirmed Problem 951792550 History of adenomatous polyp of colon (Z86.010) Active confirmed Problem Diarrhea (44050176) Diarrhea (R19.7) Active con firmed Problem Change in bowel habit (17507036) Change in bowel habit (R19.4) Active confirmed Problem History of polyp of colon (situation) (958006777) Personal history of colonic polyps (Z86.010) Active confirmed Problem 44367518 Calculus of gallbladder without cholecystitis without obstruction (K80.20) Active confirmed Problem 380207673 Gastroesophageal reflux disease without esophagitis (K21.9) Active confirmed Problem Preprocedural examination (052907673779895) Preprocedural examination (Z01.818) Active confirmed Problem 08100776 Diarrhea, unspecified type (R19.7) Active confirmed Problem 559422450 RUQ abdominal pa in (R10.11) Active confirmed Problem 341232472 RUQ pain (R10.11) Active confirmed Problem 745904421 Left renal mass (N28.89) Active confirmed Problem 00355364165672395 Abnormal ultrasound of left kidney (R93.422) Active confirmed Vital Signs Blood pressure diastolic 11 mm Hg 01/12/2025 Height 62 in 01/12/2025 Blood pressure systolic 111 mm Hg 01/12/2025 Weight 230 lbs 01/12/2025 BMI 42.06 kg/m2 01/12/2025 Procedures Procedure Date Ordered Date Performed Result Body Sit e COLONOSCOPY 01/12/2025 N/A Encounters Encounter Location Date Provider Diagnosis [facility] [place] [address] [place] [phone] 04/17/2025 Bang Little [facility] [address] [place] [address] 01/12/2025 Bang Little Personal history of colonic [...] Date [employer] [address] [place] [phone] [id number] PAOLA FRIEDMAN Self - patient is the insured Medical (General) History Medical History History ICD Code IDDM Elevated Cholesterol Hypertension Rheumatoid arthritis Urinary incontinence- mild GERD-neg EGD in 2000 Neg. colonoscopy in 2000 and 08/2010 Denies CO,CVA,Lung disease,renal disease Bronchitis Edema of ankles Colonoscopy [...]
--- OUTSIDE RECORDS SUMMARY | 2025-07-11 07:28 | XMS_ITS | Clinical Summary ---
Author Organization [facility] Address [address] [facility] [address] [place] [address] Phone Care Team Providers Care Service Administrator Name Role Phone Ellen Yan MD Primary Care Provider +1- [phone] Allergies Active Allergy Reactions Criticality Noted Date [...] 04/24/2025 Telephone [facility] [address] [place] [address] Sorin Carpio MD from Last 3 Months Family History Medical [...] Office Visit [facility] [address] [place] [address] Sorin Carpio MD [address] [facility] [address] [place] [address] Health Maintenance Due Date Last Done Comments [...] AM EDT) Hemoglobin A1C 7.2(H) (4.0-5.6) % [facility] Comment: MONITORING: In known diabetic patients, hemoglobin A1c targets should be discussed with health care provider. DIAGNOSTIC USE: The [place] Diabetes [employer] (ADA) and the World Health [...] Supplement 1 Testing performed or reported by [facility] [employer], a Service of [facility], [address] [place] [address] Lamont Ortega MD, Manager Qa [facility]# [id number] Blood specimen (specimen) Venous blood / Unknown 02/04/2023 10:21 AM EDT 02/04/2023 10:34 AM EDT Jim Santiago MD LAB BLOOD ORDERABLES Final Re sult [facility] from Last 3 Months or Most Recently Relevant to Health Maintenance Insurance [place] Care Teams Service Administrator Relationship Specialty Start Date End Date Ellen Yan MD [address] [facility] [place] [address] PCP - General Internal Medicine 12/03/20
== END 2025-07-11 07:25 | disposition home or self-care (01) ==
LOC: HO.CT 07:24
PROVIDERS: PCP Internal Medicine; Visit Provider Hospitalist
DX: R91.1 Solitary pulmonary nodule (principal)
CPT/HCPCS: 71250

== ENCOUNTER → 2025-07-11 07:25 | Outpatient (BNV) | payer MEDICARE, SELFPAY | PROVIDERS: PCP Internal Medicine; Visit Provider Student in an Organized Health Care Education/Training Program | DX: R91.1 Solitary pulmonary nodule (principal) | CPT/HCPCS: 71250 ==

== ENCOUNTER 2025-07-25 09:47 | Outpatient (AMB) | payer MEDICARE, SELFPAY ==
--- OUTSIDE RECORDS SUMMARY | 2025-04-17 04:20 | XMS_ITS ---
Author Organization [facility] Address [address] [place] [address] Care Team Providers Care Glue Drier Operator Name Role Phone Yuriy GARCIA, Lyndsay Primary Care Provider Bang Moore [phone] REASON FOR VISIT sccreening,hx polyps Encounters Encounter Location Date Provider Diagnosis [facility] [place] [address] [place], [place] [phone] 04/17/2025 Bang Little Plan Of Treatment No Information Progress Notes * CHANTELLE FRIEDMANDOB: [birth year] (74 yo F)Acc No.[id number]:04/17/2025 COLON WITH MAC Patient: CHANTELLE VIDAL Provider: Melany Little MD :1950 A ge:74 Y S ex:Female Date:04/17/2025 Address:[address] [place] [address] [facility] Pcp:Lyndsay Yan MD Subjective: * Chief Complaints: [...] 0 04/17/2025 Generated for Cristopher gomez/Arnoldog/eTransmitting on: 11:00 AM EDT
[2025-07-25 09:57] VITALS: BP 144/50; PULSE 77; O2SAT 97; BMI 41.3
--- NOTE | 2025-07-25 09:57 | A.OFFVIS_ITS ---
Vital Signs 07/25/25 09:57 Height 5 ft 2 in Weight 225 lb 15.581 oz BMI 41.3 BP 144/50 H Blood Pressure Location Lt brachial Position Sitting Pulse 77 Pulse Source Pulse Oximeter Pulse Oximetry (%) 97 Oxygen Delivery Method Room Air Intake Visit Reasons: pulmonary nodule [employer] Required: No Accompanied by: Self / Same As Patient Allergies codeine (Codeine) Allergy (Severe, Verified 07/25/25 10:00) DIFFICULTY BREATHING Penicillins Adverse Reaction (Intermediate, Verified 07/25/25 10:00) stomach upset semaglutide (From Ozempic) Adverse Reaction (Verified 07/25/25 10:00) Vomiting HPI Comments Details: Paola is a pleseant 74 year old female patient of Dr. Yan. She has a [facility] CKD stage 3, diabetic retinopathy, dyslipidemia, essential hypertenstion, IDDM, obesity, osteopenia, postlaminectomy syndrome, spinal stenosis of lumbar region with radiculopathy, and spondylosis of lumbar spine. She presents to the office today for follow-up of her clear cell renal cell carcinoma. Patient is status post renal biopsy and cryoablation on 05/27/23. Of note during last office visit renal ultrasound was ordered for surveillance monitoring that noted highly worrisome mass upper pole left kidney for which dictated renal protocol was suggested therefore repeat MRI renal mass protocol was ordered and performed. These results were communicated with the patient today. 12/06 3 x 4 cm ablation zone adjacent to the left upper pole of the left kidney corresponding to the abnormality seen on ultrasound. No enhancing mass is identified. 1.8 cm proteinaceous cyst at the lower pole of the right kidney. These images were also reviewed with Dr. Lassiter. She continues to follow-up with Dr. Whittington for surveillance monitoring as well. She also reports following up with nephrology and endocrinology for question of hyper/hypo vitamin-D. She also continues to follow-up with oncology and her PCP. She currently denies any bothersome urinary issues or concerns. In office urinalysis results reviewed with the patient today. Patient with PT1A renal cell carcinoma [place] grade 3. When asked she denies urinary urgency, urinary frequency, incontinence, nocturia, hematuria, dysuria, foul smelling urine, changes to urinary stream, flank pain, fever, and or chills. She is happy with her current voiding parameters. She otherwise offers no issues or concerns at this time. 12/28/2024 the patient is here for a pulmonary follow-up visit. Overall she is doing well. Denies any shortness of breath. Though she did developing worsening cough. She feels like she has some bronchitis. She is starting to become more congested with some phlegm. It is a tends yellow. She says that she has bronchitis a lot. Explained to her that she may have a component of chronic bronchitis. She does have a rescue inhaler. I do believe that she will do better with a maintenance inhaler. Therefore I will send her Breztri to the pharmacy. In the meantime the patient did have a CT scan of the chest I personally reviewed. Her pulmonary nodule measuring 7 mm in size in the right hemithorax appears to be stable when compared to her last 1. Still with a history renal cell carcinoma this is something that needs to be monitor closely so therefore follow-up in 6 months with a repeat [address] scan. She also had an MRI of the abdomen and apparently she also have another MRI in 6 months. She does have some changes there but are likely due to the actual ablation. 07/25/2025 the patient is here for pulmonary follow-up visit. Overall the patient has been doing well. Denies any shortness of breath or cough. She does have significant arthralgias due to her rheumatoid arthritis and osteoarthritis and she is following closely with Rheumatology. In regards to her pulmonary nodules she did have a CT scan in June 2025 and we did compared to previous CAT scan from 6 months prior. The patient has multiple pulmonary nodules in the largest 1 measures 8 mm in size in the right hemithorax. Has a nodules are smaller. At this point since the nodule has not she needs more than 6 months will go ahead and repeat a CAT scan in a year. The patient follow-up then after her CAT scan if she has any issues prior to this she can always call for an earlier assessment. [facility] Medical History Diabetic neuropathy associated with diabetes mellitus due to underlying condition Chronic bronchitis Adalimumab (Humira) long-term use Osteoarthritis of left knee Hyperparathyroid bone disease Hypogammaglobulinemia Trochanteric bursitis of both hips Leg pain, bilateral Herpes zoster vaccination declined COVID-19 vaccine dose declined Diabetic retinopathy Tubular adenoma of colon Osteopenia History of severe acute respiratory syndrome coronavirus 2 (SARS-CoV-2) disease Obesity due to excess calories 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 Postlaminectomy syndrome MGUS (monoclonal gammopathy of unknown significance) 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 mellitus) Diabetic retinopathy associated with type 2 diabetes mellitus CKD (chronic kidney disease) stage 3, GFR 30-59 ml/min 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 GERD (gastroesophageal reflux disease) Type 2 diabetes mellitus with diabetic polyneuropathy Essential hypertension Dyslipidemia Surgical History Hx of colonoscopy Hx laparoscopic cholecystectomy Hx of tonsillectomy Hx of cataract surgery History of back surgery Family History Mother Diabetes CVD (cardiovascular disease) HTN (hypertension) Father Hodgkin disease Brother Hodgkin disease Sister Pancreatic cancer Sister Lung cancer Non-Hodgkin lymphoma Paternal Uncle Colon cancer Social History Household Members: None Housing: Condominium Alcohol intake: never Patient Tobacco Use Status: Former Tobacco user Tobacco use type: Cigarette Cigarettes Per Day: 50 Years Smoked: 20 e-Cigarette/Vaping Use: Never Used Advance Directives Date on File: 02/08/22 service: No Current occupational status: retired Cognitive needs: No Hearing needs: No Vision needs: Yes Review of Systems Const Reports no additional complaints Eyes Reports no additional complaints ENT Reports as per HPI, Denies vertigo, Denies dizziness, Denies otalgia, Denies nasal discharge, Reports post nasal drip and Denies sore throat Card Reports no additional complaints Resp Reports no additional complaints GI Reports no additional complaints Reports no additional complaints Musc Reports no additional complaints Skin/Breast Denies rash Neuro Reports no additional complaints, Denies vertigo and Denies dizziness Psych Reports no additional complaints Endo Reports no additional complaints Eduardo/Lymph Reports no additional complaints Aller/Immun Reports no additional complaints Physical Exam Vital Signs: Last Vital Signs Pulse 77 07/25/25 09:57 BP 144/50 H 07/25/25 09:57 Pulse Ox 97 07/25/25 09:57 Oxygen Delivery Method Room Air 07/25/25 09:57 BMI result Body Mass Index 41.3 Const General: comfortable HEENT Head: Yes normocephalic Neck Neck: Yes supple Chest Chest palpation & inspection: normal inspection of the chest Resp Effort & Inspection: normal respiratory effort Auscultation: clear to auscultation bilaterally Cardio Heart sounds: S1 normal heart sound present and S2 normal heart sound present GI Palpation (GI): Soft to palpation Skin General skin exam: no rashes or lesions noted Extrem General: Yes no clubbing, cyanosis or edema Assessment & Plan Assessment & Plan (1) Pulmonary nodule: Code(s): R91.1 - Solitary pulmonary nodule Category: Medical (2) Clear cell renal cell carcinoma: Comment: Mass was treated with ablative procedure May 2023 Code(s): C64.9 - Malignant neoplasm of unspecified kidney, except renal pelvis Category: Medical (3) Chronic bronchitis: Code(s): J42 - Unspecified chronic bronchitis Category: Medical Qualifiers: Chronic bronchitis type: mixed simple and mucopurulent Qualified Co de(s): J41.8 - Mixed simple and mucopurulent chronic bronchitis Plan Will repeat CT chest in 12 months Deb ARELLANO as needed F/U in [address] Orders: Orders [address] chest wo IV con 11 Months R91.1 - Solitary pulmonary nodule Coding Level of Care Code Est Pt Level 4 (02371) Complex EM visit Add On G2211 Diagnoses Pulmonary nodule R91.1 Clear cell renal cell carcinoma C64.9 Mixed simple and mucopurulent chronic bronchitis J41.8 Chronic bronchitis type: mixed simple and mucopurulent Time Spent (min) 16
--- OUTSIDE RECORDS SUMMARY | 2025-07-25 11:00 | XMS_ITS | Encounter Summary ---
Author Organization [facility] Address [address] [place] [address] Phone Care Team Providers Care Corporate Investigator Name Role Phone Ellen Yan MD Primary Care Provider [phone]- [phone] Encounter Details Date Type Department Care Team (Late st Contact Info) Description 04/01/2022 Telephone [facility] [address] [place] [address] Jim Santiago MD [address] [place] [id number] Social History Tobacco Use Types Packs/Day Years [...] over the weekend. Pls call her at [phone] * Telephone Encounter - Kassi Sotelo - 04/01/2022 10:50 AM EDT Pt called, her insurance will not cover the script for joaquín. It needs a PA please advise Thank you documented in this encounter Plan of Treatment Upcoming Encounters Date Type Department Care Team (Late st Contact Info) Description 09/28/2025 1:30 PM EST Office Visit [facility] [address] [place] [address] Sorin aCrpio MD [address] [facility] [address] [place] [address] documented as of this encounter Visit Diagnoses Not on filedocumented in this encounter Care Teams Corporate Investigator Relationship Specialty Start Date End Date Ellen Yan MD [facility] [address] PCP - General Internal Medicine 12/03/20 documented as of this encounter
--- OUTSIDE RECORDS SUMMARY | 2025-07-25 11:01 | XMS_ITS | Patient Health Record ---
Author Organization [facility] Address [address] [place] [address] Care Team Providers Care Medical Health Researcher Name Role Phone Yuriy GARCIA, Lyndsay Primary Care Provider Bang Moore Unavailable [phone] Allergies Allergen (clinical drug ingredient) Drug/Non Drug Allergy documented on EMR Reaction Allergy Type Onset Date Status semaglutide Ozempic Unknown Drug Allergy Activ e codeine Codeine Sulfate Unknown Drug Allergy A ctive Results Component Value Reference Range Notes Glucose, Whole Blood Reviewed date:04/17/2025 11:53:49 PM Interpretation: Performing Lab:[facility], [address] [place] [phone] Notes/Report: Glucose, Whole Blood 168 60-115 mg/dL METER # : [id number] Pathology (Not yet reviewed by provider) Interpretation: Performing Lab:[facility], [address] [place] [phone] Notes/Report: Reason For Referral No Information Medications Medication SIG (Take, Route, Frequency, Duration) Notes Start Date End Date Status Prevacid 15 MG 1 capsule Orally Onc e a day; Duration: 30 day(s) Active Toujeo Max SoloStar 300 UNIT/ML INJECT 40 UNIT (0.1333 ML) SUBCUTANEOUSLY BEDTIME Subcutaneous; Duration: 45 Not-Taking Bumetanide 1 MG TAKE 1 TABLET BY MOUTH EVERY DAY Oral; Duration: 90 Active sulfaSALAzine 500 MG TAKE 1 TABLET BY MOUTH EVERY 12 HOURS Oral; Duration: 30 Not-Taking Aspirin Adult Low Dose 81 MG 1 tablet Orally Once a day; Duration: 30 day(s) Not-Taking CoQ-10 100 MG 1 capsule with a aki l Orally Once a day; Duration: 30 day(s) Active V-Go 40 - as directed Active Leflunomide 10 MG Oral; Duration: 30 Active ProAir HFA 108 (90 Base) MCG/ACT 2 puffs as needed Inhalation every 6 hrs as needed Active Humira (2 Pen) 40 MG/0.4ML 0.4 mL Subcutaneous every 2 weeks Active Lisinopril 20 MG Oral; Duration: 90 Active Gabapentin 300 MG TAKE 1 CAPSULE BY MOUTH AT BEDTIME Oral; Duration: 90 Active Pravastatin Sodium 40 MG TAKE 1 TABLET BY MOUTH EVERY DAY Oral; Duration: 90 Active Leflunomide 10 MG Oral; Duration: 90 Days Active Vitamin D 50 MCG (1999 UT) 1 tablet Orally Once a day Active Insulin Lispro 100 UNIT/ML Injection; Duration: 85 Active Immunizations Vaccine Route Administration Date [...] Status Risk Notes Problem Colon cancer screening (264791316) Colon cancer screening (Z12.11) Active confirmed Problem Epigastric pain (00768278) Epigastric abdominal pain (R10.13) Active confirmed Problem History of adenomatous polyp of colon (959629437) History of adenomatous polyp of colon (Z86.010) Active confirmed Problem Diarrhea (49659645) Diarrhea (R19.7) Active con firmed Problem Change in bowel habit (40820020) Change in bowel habit (R19.4) Active confirmed Problem History of polyp of colon (situation) (096401382) Personal history of colonic polyps (Z86.010) Active confirmed Problem Cholelithiasis without obstruction (23901057) Calculus of gallbladder without cholecystitis without obstruction (K80.20) Active confirmed Problem Gastroesophageal reflux disease without esophagitis (328670963) Gastroesophageal reflux disease without esophagitis (K21.9) Active confirmed Problem Preprocedural examination (778090460369602) Preprocedural examination (Z01.818) Active confirmed Problem Diarrhea (89761040) Diarrhea, unspecified type (R19.7) Active confirmed Problem Right upper quadrant pain (832609398) RUQ abdominal pain (R10.11) Active confirmed Problem Right upper quadrant pain (967269100) RUQ pain (R10.11) Active confirmed Problem Disorder of kidney and/or ureter (751684040) Left renal mass (N28.89) Active confirmed Problem Abnormal ultrasound of left kidney (R93.422) Active confirmed Vital Signs Blood pressure diastolic 11 mm Hg 01/12/2025 Height 62 in 01/12/2025 Blood pressure systolic 111 mm Hg 01/12/2025 Weight 230 lbs 01/12/2025 BMI 42.06 kg/m2 01/12/2025 Procedures Procedure Date Ordered Date Performed Result Body Sit e COLONOSCOPY 01/12/2025 N/A Encounters Encounter Location Date Provider Diagnosis [facility] Outpatient [address] [place], [place] [phone] 04/17/2025 Bang [facility] [address] [place] [address] 01/12/2025 Bang Little Personal history of colonic [...] Date [employer] [address] [place] [address] [id number] PRABHJOTAbdiel PAOLA Self - patient is the [...]
--- OUTSIDE RECORDS SUMMARY | 2025-07-25 11:01 | XMS_ITS | Encounter Summary ---
Author Organization [facility] Address [address] [facility] [address] [place] [address] Phone Care Team Providers Care Director Of Securities And Real Estate Name Role Phone Ellen Yan MD Primary Care Provider +1- [phone] Encounter Details Date Type Department Care Team ([facility] Contact Info) Description 04/24/2021 Documentation Only [facility] [address] [facility] [address] [place] [address] Meena Kemp MA Social History [...] Upcoming Encounters Date Type Department Care Team ([facility] Contact Info) Description 09/28/2025 1:30 PM EST Office Visit [facility] [address] [place] [address] Sorin Carpio MD [address] [facility] [address] [place] [address] documented as of this encounter [...] U/L Total Bilirubin 0.3 MG/DL eGFR Non-Afr [place] 35 Total Protein, Serum 6.2 Blood specimen [...] filedocumented in this encounter Care Teams Director Of Securities And Real Estate Relationship Specialty Start Date End Date Ellen Yan MD [facility] [place] [address] PCP - General Internal Medicine 12/03/20 documented as of this encounter
--- OUTSIDE RECORDS SUMMARY | 2025-07-25 11:01 | XMS_ITS | Clinical Summary ---
Author Organization [facility] Address [address] [facility] [address] [place] [address] Phone Care Team Providers Care Anesthesia Assistant Name Role Phone Ellen Yan MD Primary Care Provider +1- [phone] Allergies Active Allergy Reactions Criticality Noted Date [...] 04/24/2025 Telephone [facility] [address] [place] [address] Sorin Carpio MD from Last 3 [...] Office Visit [facility] [address] [place] [address] Sorin Carpio MD [address] [facility] [address] [place] [phone] Health Maintenance Due Date Last Done Comments [...] AM EDT) Hemoglobin A1C 7.2(H) (4.0-5.6) % [facility] Comment: MONITORING: In known diabetic patients, hemoglobin A1c targets should be discussed with health care provider. DIAGNOSTIC USE: The [place] Diabetes [employer] (ADA) and the World Health [...] Testing performed or reported by [facility] [employer], a Service of [facility], [address] [place] [address] Lamont Ortega MD, President [employer] [facility]# [id number] Blood specimen (specimen) Venous blood / Unknown 02/04/2023 10:21 AM EDT 02/04/2023 10:34 AM EDT Jim Santiago MD LAB BLOOD ORDERABLES Final Re sult [facility] from Last 3 Months or Most Recently Relevant to Health Maintenance Insurance [place] Care Teams Anesthesia Assistant Relationship Specialty Start Date End Date Ellen Yan MD [address] [facility] [place] [address] PCP - General Internal Medicine 12/03/20
== END 2025-07-25 13:58 | disposition home or self-care (01) ==
LOC: HO.HPS 09:48
PROVIDERS: PCP Internal Medicine; Visit Provider Hospitalist
DX: R91.1 Solitary pulmonary nodule (principal); C64.9 Malignant neoplasm of unspecified kidney, except renal pelvis; J41.8 Mixed simple and mucopurulent chronic bronchitis
CPT/HCPCS: 99214; G2211

== ENCOUNTER → 2025-07-25 09:47 | Outpatient (BNVA) | payer MEDICARE, SELFPAY | PROVIDERS: PCP Internal Medicine; Visit Provider Hospitalist | DX: R91.1 Solitary pulmonary nodule (principal); J41.8 Mixed simple and mucopurulent chronic bronchitis; C64.9 Malignant neoplasm of unspecified kidney, except renal pelvis | CPT/HCPCS: 99212 ==

== ENCOUNTER 2025-08-25 09:05 | Outpatient (AMB) | payer MEDICARE, SELFPAY ==
--- OUTSIDE RECORDS SUMMARY | 2025-04-17 03:20 | XMS_ITS ---
Author Organization [facility] Address [address] [place] [address] Care Team Providers Care Unemployment Insurance Hearing Officer Name Role Phone Yuriy GARCIA, Lyndsay Primary Care Provider Bang Moore Unavailable [phone] REASON FOR VISIT sccreening,hx polyps Encounters Encounter Location Date Provider Diagnosis [facility] [place] Outpatient [address] [place], [place] [phone] 04/17/2025 Bang Little Plan Of Treatment No Information Progress Notes * CHANTELLE FRIEDMANDOB: [birth year] (74 yo F)Acc No.[id number]:04/17/2025 COLON WITH MAC Patient: CHANTELLE VIDAL Provider: Melany Little MD :1950 A ge:74 Y S ex:Female Date:04/17/2025 Address:[address] [place] [address] [facility] Pcp:Lyndsay Yan MD Subjective: * Chief Complaints: * 1 . Sccreening,hx polyps. * Medical History: Objective: * Vitals: Assessment: Plan: * Treatment: * * The named appointment provid er may or may not be the originator of this progress note, and it is not deemed complete until electronically signed by the appointment provider. Sign off status: Pending * Provider: Melany Little MD Date: 0 04/17/2025 Generated for Cristopher gomez/Ashwini/eTransmitting on: 10/25/2024 09:40 AM EST
--- NOTE | 2025-08-25 09:09 | MHC.OFFVIS ---
Vital Signs 08/25/25 09:10 Height 5 ft 2 in Weight 222 lb 10.67 oz BMI 40.7 BP 122/78 Blood Pressure Location Rt brachial Position Sitting Pulse 78 Pulse Source Pulse Oximeter Pulse Oximetry (%) 95 Oxygen Delivery Method Room Air Intake Visit Reasons: DM Intake Note: Patient present today for Type 2 Diabetes Mellitus follow-up: Last Diabetic eye exam: 07/2025, [facility] Last Podiatry Visit: Patient does not see a Poster Most Recent HgA1C: 7.2%, 08/25/2025 Random Glucose: 96 mg/dL Warehouser Required: No Accompanied by: Self / Same As Patient Allergies codeine (Codeine) Allergy (Severe, Verified 07/25/25 10:00) DIFFICULTY BREATHING Penicillins Adverse Reaction (Intermediate, Verified 07/25/25 10:00) stomach upset semaglutide (From Ozempic) Adverse Reaction (Verified 07/25/25 10:00) Vomiting Medication List - Last Reconciled 08/25/25 by Lucita Mckenzie PA-C adalimumab (Humira(CF) Pen) 40 mg subcut QWEEK albuterol sulfate 90 mcg/actuation 2 puffs inhalation Q6H PRN blood sugar diagnostic (OneTouch Ultra Test strips) USE 3 TIMES DAILY blood-glucose sensor (Dexcom G7 Sensor device) CHANGE EVERY 10 DAYS DIRECTED blood-glucose,jack setter,cont (Dexcom G7 Ocularist) As directed cnwlzgfrdo-dziblczf-wxdefftpbw 160-9-4.8 mcg/actuation (Breztri Aerosphere) 2 inhalations inhalation BID 30 days bumetanide 1 mg PO DAILY cholecalciferol (vitamin D3) 50 mcg PO DAILY coQ10 (ubiquinol) (Qunol Meng CoQ10) 100 mg PO BID diclofenac sodium 1% 4 grams topical QID gabapentin (Neurontin) 300 mg PO BEDTIME insulin lispro (Humalog U-100 Insulin) Inject up to 80 units with patch pump daily subcutaneously daily; lansoprazole (Prevacid 24Hr) 15 mg PO DAILY leflunomide 10 mg PO DAILY lidocaine 5% 3 patches topical DAILY lisinopril 30 mg PO DAILY pen needle, diabetic (Novofine 32) Use daily As directed for insulin pen needle, diabetic Use 4x a day As directed pravastatin 40 mg PO BEDTIME sub-q insulin device, 40 unit (V-GO 40 device) USE DIRECTED Toujeo Max U-300 SoloStar (insulin glargine U-300 conc) 50 units (0.1667 mL) subcut DAILY 30 days NS HPI HPI DM: Details: Patient is a 74 yo female with DM type 2 diagnosed in her early 40s who presents for continued management of diabetes. She has a significant past medical history of clear cell renal carcinoma, chronic kidney disease, rheumatoid arthritis, hyperlipidemia and diabetes. DM: Her A1c is 7.2 today. She is on toujeo 50 units and humalog sliding scale CGM-average glucose 178, 93% usage, gmi 7.1. Very hyperglycemic 6%, hyperglycemic 37%, in range 57%, hypoglycemic 0% Micro and macrovascular complications: neuropathy, proliferative retinopathy, nephropathy but no macrovascular disease. 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 Has also met with a dietitian Poster: Up-to-date Ophthalmology evaluation: ou proliferative diabetic retinopathy, goes twice a year for evaluation Nephro: Follows closely with Nephrology and Urology. She does have a history of renal cell carcinoma. CV: Blood pressure today in the office is 122/78. She is on lisinopril 20 mg daily. Cholesterol is controlled with pravastatin 40 mg. MSK: Reports increase of RA symptoms [facility] Medical History Diabetic neuropathy associated with diabetes mellitus due to underlying condition Chronic bronchitis Adalimumab (Humira) long-term use Osteoarthritis of left knee Hyperparathyroid bone disease Hypogammaglobulinemia Trochanteric bursitis of both hips Leg pain, bilateral Herpes zoster vaccination declined COVID-19 vaccine dose declined Diabetic retinopathy Tubular adenoma of colon Osteopenia History of severe acute respiratory syndrome coronavirus 2 (SARS-CoV-2) disease Obesity due to excess calories 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 Postlaminectomy syndrome MGUS (monoclonal gammopathy of unknown significance) 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 mellitus) Diabetic retinopathy associated with type 2 diabetes mellitus CKD (chronic kidney disease) stage 3, GFR 30-59 ml/min 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 GERD (gastroesophageal reflux disease) Type 2 diabetes mellitus with diabetic polyneuropathy Essential hypertension Dyslipidemia Surgical History Hx of colonoscopy Hx laparoscopic cholecystectomy Hx of tonsillectomy Hx of cataract surgery History of back surgery Family History Mother Diabetes CVD (cardiovascular disease) HTN (hypertension) Father Hodgkin disease Brother Hodgkin disease Sister Pancreatic cancer Sister Lung cancer Non-Hodgkin lymphoma Paternal Uncle Colon cancer Social History Household Members: None Housing: Condominium Alcohol intake: never Patient Tobacco Use Status: Former Tobacco user Tobacco use type: Cigarette Cigarettes Per Day: 50 Years Smoked: 20 e-Cigarette/Vaping Use: Never Used Advance Directives Date on File: 02/08/22 service: No Current occupational status: retired Cognitive needs: No Hearing needs: No Vision needs: Yes Physical Exam Vital Signs: Last Vital Signs Pulse 78 08/25/25 09:10 BP 122/78 08/25/25 09:10 Pulse Ox 95 08/25/25 09:10 Oxygen Delivery Method Room Air 08/25/25 09:10 BMI result Body Mass Index 40.7 Const Orientation/consciousness: patient oriented x3 HEENT Ears: hearing grossly normal bilaterally Neck Thyroid: Thyroid normal Lymphatic: no lymphadenopathy noted Resp Auscultation: clear to auscultation bilaterally Cardio Rate: regular rate Rhythm: regular rhythm Heart sounds: S1 normal heart sound present and S2 normal heart sound present Skin General skin exam: no rashes or lesions noted Neuro General: patient oriented x3, gait normal and no focal motor deficits Results AMB Hemoglobin A1c AMB Hemoglobin A1c 7.2 % Last Edit by CARMITA Wayne on 08/25/25 09:28 Results Reviewed Results Reviewed: Laboratory Last Values Glucose (Clinic) 96 mg/dL (60-115) 08/25/25 09:16 Laboratory Tests 05/30/25 06/22/25 08:05 09:02 Creatinine 1.63 H Estimated GFR 31 Random Glucose 197 H Hemoglobin A1c % 6.9 H AST 27 ALT 18 Triglycerides 127 Cholesterol 149 LDL Cholesterol, Calc 78 HDL Cholesterol 46 Assessment & Plan Assessment & Plan (1) Type 2 diabetes mellitus with diabetic polyneuropathy: Code(s): E11.42 - Type 2 diabetes mellitus with diabetic polyneuropathy Category: Medical Qualifiers: Diabetes mellitus intermodal truck driver insulin use: with intermodal truck driver use Qualified Code(s): E11.42 - Type 2 diabetes mellitus with diabetic polyneuropathy; Z79.4 - penitentiary (current) use of insulin Plan: we will try adding Mounjaro. We discussed risks benefits and adverse effects of this medication. Continue Toujeo 50 units daily continue sliding scale Follow up in 3 months. Sooner if needed. (2) CKD stage 3b, GFR 30-44 ml/min: Code(s): N18.32 - Chronic kidney disease, stage 3b Category: Medical Plan: stable follows with nephrololgy Avoids NSAIDs (3) HTN (hypertension): Code(s): I10 - Essential (primary) hypertension Category: Medical Plan: better today (4) Dyslipidemia: Code(s): E78.5 - Hyperlipidemia, unspecified Category: Medical Plan: Continue on pravastatin. reviewed last lipids Orders: Orders AMB Hemoglobin A1c Today E11.42 - Type 2 diabetes mellitus with diabetic polyneuropathy, Z79.4 - 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 Medications: New tirzepatide (Mounjaro) 2.5 mg (0.5 mL) subcut QWEEK 2 mL 3RF Coding Level of Care Code Est Pt Level 4 (38502) Complex EM visit Add On G2211 Diagnoses Type 2 diabetes mellitus with diabetic polyneuropathy, with long-term current use of insulin E11.42; Z79.4 Diabetes mellitus residential insulin use: with intermodal truck driver use CKD stage 3b, GFR 30-44 ml/min N18.32 HTN (hypertension) I10 Dyslipidemia E78.5
[2025-08-25 09:10] VITALS: BP 122/78; PULSE 78; O2SAT 95; BMI 40.7
[2025-08-25 09:19] LABS: Glucose, Whole Blood 96 mg/dL (60-115)
--- OUTSIDE RECORDS SUMMARY | 2025-08-25 09:40 | XMS_ITS | Encounter Summary ---
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
--- OUTSIDE RECORDS SUMMARY | 2025-08-25 09:40 | XMS_ITS | Encounter Summary ---
Author Organization [facility] Address [address] [place] [address] Phone Care Team Providers Care Lining Repairer Name Role Phone Ellen Yan MD Primary Care Provider +1- [phone] Encounter Details Date Type Department Care Team (Late st Contact Info) Description 04/01/2022 Telephone [facility] [address] [place] [address] Jim Santiago MD [address] [place] [phone] Social History Tobacco Use Types Packs/Day Years [...] over the weekend. Pls call her at [phone] * Telephone Encounter - Kassi Sotelo - 04/01/2022 10:50 AM EDT Pt called, her insurance will not cover the script for joaquín. It needs a PA please advise Thank you documented in this encounter Plan of Treatment Upcoming Encounters Date Type Department Care Team (Late st Contact Info) Description 09/28/2025 1:30 PM EST Office Visit [facility] [address] [place] [address] Sorin Carpio MD [address] [facility] [address] [place] [phone] documented as of this encounter Visit Diagnoses Not on filedocumented in this encounter Care Teams Lining Repairer Relationship Specialty Start Date End Date Ellen Yan MD PCP - General Internal Medicine 12/03/20 documented as of this encounter
--- OUTSIDE RECORDS SUMMARY | 2025-08-25 09:41 | XMS_ITS | Encounter Summary ---
Author Organization [facility] Address [address] [place] [address] Phone Care Team Providers Care Senior Energy Trader Name Role Phone Ellen Yan MD Primary Care Provider +1- [phone] Encounter Details Date Type Department Care Team (Late st Contact Info) Description 04/24/2021 Documentation Only [facility] [address] [place] [address] Meena Kemp MA Social History [...] PM EDT documented as of this encounter Functional Status * Question Answer Date of Assessment Author BP 126/74 04/24/2021 1:28 PM EDT Meena Lewis MA Pulse 76 04/24/2021 1:28 PM EDT Meena Lewis MA Height 62 04/24/2021 1:28 PM EDT Meena Lewis MA Weight 3776 04/24/2021 1:28 PM EDT Meena Lewis MA * BMI (Calculated) Answer Date of Assessment Author 43.2 04/24/2021 1:28 PM EDT Meena Kemp [place] * [place] [address] 04/24/2021 1:28 PM EDT Meena Lewis MA Height 62 04/24/2021 1:28 PM EDT Meena Lewis MA Weight 3776 04/24/2021 1:28 PM EDT Meena Lewis MA * BMI (Calculated) Answer Date of Assessment Author 43.2 04/24/2021 1:28 PM EDT Meena Kemp MA documented as of this encounter Plan of Treatment Upcoming Encounters Date Type Department Care Team (Late st Contact Info) Description 09/28/2025 1:30 PM EST Office Visit [facility] [address] [place] [address] Sorin Carpio MD [address] [facility] [address] [place] [address] documented as of this encounter Procedures Procedure Name Priority Date/Time Associated Diagnosis Comments COMPREHENSIVE METABOLIC PANEL (CMP) (EXTERNAL LAB ENTRY) Routine 04/09/2021 CBC (INCLUDES DIFF/PLT) (EXTERNAL LAB ENTRY) Routine 04/09/2021 documented in this encounter Results * Comprehensive Metabolic Panel (CMP) (04/09/2021) Pathologist [facility] BUN 30 mg/dL Creatinine 1.48 mg/dL Sodium 143 mEq/L Potassium 5.5 mEq/L Chloride 108 Carbon Dioxide 28 mmol/L Calcium 9.3 mg/dL Albumin (Blood) 3.9 g/dL AST (SGOT) 18 U/L ALT (SGPT) 14 U/L Alkaline Phosphatase 62 U/L Total Bilirubin 0.3 MG/DL eGFR Non-Afr Russian 35 Total Protein, Serum 6.2 Blood specimen (specimen) 04/09/2021 us Historical Provider LAB BLOOD ORDERABLES Sidra l [...] filedocumented in this encounter Care Teams Senior Energy Trader Relationship Specialty Start Date End Date Ellen Yan MD PCP - General Internal Medicine 12/03/20 documented as of this encounter
--- OUTSIDE RECORDS SUMMARY | 2025-08-25 09:41 | XMS_ITS | Patient Health Record ---
Author Organization [facility] Address [address] [place] [address] Care Team Providers Care Pack Master Name Role Phone Yuriy GARCIA, Lyndsay Primary Care Provider Bang Moore Unavailable [phone] Allergies Allergen (clinical drug ingredient) Drug/Non Drug Allergy documented on EMR Reaction Allergy Type Onset Date Status semaglutide Ozempic Unknown Drug Allergy Activ e codeine Codeine Sulfate Unknown Drug Allergy A ctive Results Component Value Reference Range Notes Glucose, Whole Blood Reviewed date:04/17/2025 11:53:49 PM Interpretation: Performing Lab:[facility], [address] [place] [phone] Notes/Report: Glucose, Whole Blood 168 60-115 mg/dL METER # : [id number] Pathology (Not yet reviewed by provider) Interpretation: Performing Lab:[facility], [address] [place] [phone] Notes/Report: Reason For Referral No Information Medications [...] Status Risk Notes Problem Colon cancer screening (295441742) Colon cancer screening (Z12.11) Active confirmed Problem Epigastric pain (57037710) Epigastric abdominal pain (R10.13) Active confirmed Problem History of adenomatous polyp of colon (712544002) History of adenomatous polyp of colon (Z86.010) Active confirmed Problem Diarrhea (04952664) Diarrhea (R19.7) Active con firmed Problem Change in bowel habit (19506294) Change in bowel habit (R19.4) Active confirmed Problem History of polyp of colon (situation) (994020343) Personal history of colonic polyps (Z86.010) Active confirmed Problem Cholelithiasis without obstruction (64352052) Calculus of gallbladder without cholecystitis without obstruction (K80.20) Active confirmed Problem Gastroesophageal reflux disease without esophagitis (423216865) Gastroesophageal reflux disease without esophagitis (K21.9) Active confirmed Problem Preprocedural examination (222425406127009) Preprocedural examination (Z01.818) Active confirmed Problem Diarrhea (31845139) Diarrhea, unspecified type (R19.7) Active confirmed Problem Right upper quadrant pain (913814483) RUQ abdominal pain (R10.11) Active confirmed Problem Right upper quadrant pain (633657535) RUQ pain (R10.11) Active confirmed Problem Disorder of kidney and/or ureter (260941641) Left renal mass (N28.89) Active confirmed Problem Abnormal ultrasound of left kidney (R93.422) Active confirmed Vital Signs Blood pressure diastolic 11 mm Hg 01/12/2025 Height 62 in 01/12/2025 Blood pressure systolic 111 mm Hg 01/12/2025 Weight 230 lbs 01/12/2025 BMI 42.06 kg/m2 01/12/2025 Procedures Procedure Date Ordered Date Performed Result Body Sit e COLONOSCOPY 01/12/2025 N/A Encounters Encounter Location Date Provider Diagnosis [facility] [address] [place], [place] [phone] 04/17/2025 Bang [facility] [address] [place] [address] 01/12/2025 Bang Little Personal history of colonic [...] Date [employer] [address] [place] [phone] [id number] PRABHJOTAbdiel PAOLA Self - patient is the [...]
--- OUTSIDE RECORDS SUMMARY | 2025-08-25 09:41 | XMS_ITS | Clinical Summary ---
Author Organization [facility] Address [address] [facility] [address] [place] [address] Phone Care Team Providers Care Loan Counselor Name Role Phone Ellen Yan MD Primary Care Provider +1- [phone] Allergies Active Allergy Reactions Criticality Noted Date [...] Encounters Date Type Department Care Team Description 08/25/2025 Orders Only [facility] [address] [place] [address] Sorin Carpio [...] Visit [facility] [address] [place] [address] Sorin Carpio MD [address] [facility] [address] [place] [phone] Health Maintenance Due Date Last Done Comments [...] AM EDT) Hemoglobin A1C 7.2(H) (4.0-5.6) % [facility] Comment: MONITORING: In known diabetic patients, hemoglobin A1c targets should be discussed with health care provider. DIAGNOSTIC USE: The [place] Diabetes [employer] (ADA) and the World Health [...] Supplement 1 Testing performed or reported by [facility], a Service of [facility], [address] [place] [address] Lamont Ortega MD, [place] Protection Maintainer [facility]# [id number] Blood specimen (specimen) Venous blood / Unknown 02/04/2023 10:21 AM EDT 02/04/2023 10:34 AM EDT Jim Santiago MD LAB BLOOD ORDERABLES Final Re sult [facility] from Last 3 Months or Most Recently Relevant to Health Maintenance Insurance [employer] Care Teams Loan Counselor Relationship Specialty Start Date End Date Ellen Yan MD PCP - General Internal Medicine 12/03/20
== END 2025-08-25 09:35 | disposition home or self-care (01) ==
LOC: HO.ENCR 09:06
PROVIDERS: PCP Internal Medicine; Visit Provider Physician Assistant
DX: E11.42 Type 2 diabetes mellitus with diabetic polyneuropathy (principal); Z79.4 Long term (current) use of insulin; N18.32 Chronic kidney disease, stage 3b; I10 Essential (primary) hypertension; E78.5 Hyperlipidemia, unspecified

== ENCOUNTER → 2025-08-25 09:05 | Outpatient (BNVA) | payer MEDICARE, SELFPAY | PROVIDERS: PCP Internal Medicine; Visit Provider Physician Assistant | DX: E11.21 Type 2 diabetes mellitus with diabetic nephropathy (principal); E11.3599 Type 2 diabetes mellitus with proliferative diabetic retinopathy without macular edema, unspecified eye; E11.42 Type 2 diabetes mellitus with diabetic polyneuropathy; E11.22 Type 2 diabetes mellitus with diabetic chronic kidney disease; I12.9 Hypertensive chronic kidney disease with stage 1 through stage 4 chronic kidney disease, or unspecified chronic kidney disease; N18.32 Chronic kidney disease, stage 3b; E78.5 Hyperlipidemia, unspecified; Z79.899 Other long term (current) drug therapy | CPT/HCPCS: 82947; 83036; 99212 ==

== ENCOUNTER 2025-08-28 08:44 | Outpatient (AMB) | payer MEDICARE, SELFPAY ==
--- NOTE | 2025-08-28 08:54 | A.OFFVIS_ITS ---
Vital Signs 08/28/25 08:55 Height 5 ft 2 in Weight 222 lb BMI 40.6 Intake Visit Reasons: 8 week f/u Intake Note: Paola is a 74 year old female who presents today for a follow up on her Tinea unguium. At her last visit her toe nails where debrided. Patient reports she has no concerns at this time and she denies experiencing pain in her feet Allergies codeine (Codeine) Allergy (Severe, Verified 08/28/25 08:55) DIFFICULTY BREATHING Penicillins Adverse Reaction (Intermediate, Verified 08/28/25 08:55) stomach upset semaglutide (From Ozempic) Adverse Reaction (Verified 08/28/25 08:55) Vomiting HPI HPI 8 week f/u: Details: The patient is a 74-year-old female past medical history diabetes mellitus type 2 with peripheral neuropathy, CKD, clear cell renal carcinoma status post ablation, hypertension, osteoarthritis of the knees, seropositive rheumatoid arthritis, returns for for 2 month follow up for diabetic foot care. The patient has a history of Diabetes Mellitus, which is currently well- controlled with a hemoglobin A1c of 6.8%. She experiences burning, numbness, and tingling in her feet, for which she is taking gabapentin and finds moderate relief from. She practices preventative care by moisturizing her feet regularly to prevent dryness and fissures, and she avoids walking barefoot to prevent injuries. She also reports difficulty in cutting her toenails, which is managed with assistance during podiatry visits. She denies any history of ulcerations her feet. [facility] Medical History Diabetic neuropathy associated with diabetes mellitus due to underlying condition Chronic bronchitis Adalimumab (Humira) long-term use Osteoarthritis of left knee Hyperparathyroid bone disease Hypogammaglobulinemia Trochanteric bursitis of both hips Leg pain, bilateral Herpes zoster vaccination declined COVID-19 vaccine dose declined Diabetic retinopathy Tubular adenoma of colon Osteopenia History of severe acute respiratory syndrome coronavirus 2 (SARS-CoV-2) disease Obesity due to excess calories 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 Postlaminectomy syndrome MGUS (monoclonal gammopathy of unknown significance) 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 mellitus) Diabetic retinopathy associated with type 2 diabetes mellitus CKD (chronic kidney disease) stage 3, GFR 30-59 ml/min long term care administrator (current) use of insulin GERD (gastroesophageal reflux disease) Type 2 diabetes mellitus with diabetic polyneuropathy Essential hypertension Dyslipidemia Surgical History Hx of colonoscopy Hx laparoscopic cholecystectomy Hx of tonsillectomy Hx of cataract surgery History of back surgery Family History Mother Diabetes CVD (cardiovascular disease) HTN (hypertension) Father Hodgkin disease Brother Hodgkin disease Sister Pancreatic cancer Sister Lung cancer Non-Hodgkin lymphoma Paternal Uncle Colon cancer Social History Household Members: None Housing: Condominium Alcohol intake: never Patient Tobacco Use Status: Former Tobacco user Tobacco use type: Cigarette Cigarettes Per Day: 50 Years Smoked: 20 e-Cigarette/Vaping Use: Never Used Advance Directives Date on File: 02/08/22 service: No Current occupational status: retired Cognitive needs: No Hearing needs: No Vision needs: Yes Review of Systems Const All systems reviewed & are unremarkable except as noted in HPI and below Physical Exam Vital Signs: BMI result Body Mass Index 40.6 Extrem Other: *Bilateral Lower Extremity Focused Diabetic Foot Exam Vascular: DP/PT diminished/nonpalpable bilaterally; monophasic (loudly audible) on Doppler bilaterally. CFT<3s to digits, TG warm to cool, no pedal edema, pedal hair absent Derm: Skin: Dry plantar xerosis bilaterally. No open lesions, ulcerations, or calluses. Interdigital spaces: Clear, no maceration or fungal infection. Nails: Thickened elongated dystrophic discolored toenails x 10, bilateral halluces with subungual debris. Neuro: Protective sensation 10/10 intact to right foot, 10/10 intact to left foot. Msk: Deformities: No evidence of hammertoes, bunions, Charcot changes, or other structural abnormalities. Muscle strength: 5/5 in all muscle groups. Gait: Normal, no antalgic or steppage gait observed. Footwear Assessment: Shoes inspected; appropriate fit, no excessive wear, or foreign objects noted. Class finding: B Office Procedures AMB Debridement /Avulsion Details: Procedure: Nail debridement Location: Bilateral feet, 10 nails Anesthesia: N/A Description: The affected toenails were cleansed with an antiseptic solution. Using sterile nail nippers and a rotary champ, dystrophic and mycotic nail material was carefully debrided and reduced in thickness. Care was taken to avoid trauma to the surrounding skin and nail bed. All debris was removed as tolerated. The area was inspected for signs of infection or ulceration. Patient tolerated the procedure well without complications. Tolerance: Patient tolerated procedure well, no immediate complications. Class B findings as per physical exam findings above. The patient has a diagnosis of diabetes mellitus and presents with elongated, thickened toenails. Due to underlying diabetic neuropathy and mild vascular disease findings, the patient is at increased risk for complications such as ulceration, infection, and difficulty with self-care. Debridement of elongated toenails is medically necessary to prevent development of pressure-related lesions, reduce risk of secondary infection, and maintain foot health in high- risk comorbidities. [id number] of Nail 6+ Procedure code (CPT) selection complete Results Reviewed Results Reviewed: Laboratory Tests 05/30/25 08:05 Hemoglobin A1c % 6.9 H Assessment & Plan Assessment & Plan (1) Tinea unguium: Code(s): B35.1 - Tinea unguium Category: Medical Plan: * Debrided elongated, discolored, thickened nails x 10 with a sterile nail Nipper. The patient tolerated the procedure well with no complications. Class B findings. * The patient has a diagnosis of diabetes mellitus and presents with elongated, thickened toenails. Due to underlying diabetic neuropathy and mild vascular disease findings, the patient is at increased risk for complications such as ulceration, infection, and difficulty with self-care. Debridement of elongated toenails is medically necessary to prevent development of pressure-related lesions, reduce risk of secondary infection, and maintain foot health in her high-risk comorbidities. * Rx ciclopirox * Follow up in 9 weeks. (2) Type 2 diabetes mellitus with diabetic polyneuropathy: Code(s): E11.42 - Type 2 diabetes mellitus with diabetic polyneuropathy Category: Medical Qualifiers: Diabetes mellitus assisted insulin use: with assisted use Qualified Code(s): E11.42 - Type 2 diabetes mellitus with diabetic polyneuropathy; Z79.4 - long term care administrator (current) use of insulin Plan: Risk Stratification: No current ulceration, infection, or pre-ulcerative lesion. No loss of protective sensation. Patient appears to have mild peripheral arterial disease, with no acute risk factors at this time. No plans for further testing/referrals for non-invasive vascular studies. Patient is at low risk for diabetic foot complications at this time. Recommendations: Continue routine foot care and daily self-inspection. Recommend moisturizing daily. Recommend supportive proper fitting shoe-wear. The patient may require diabetic shoes in the future. Reinforced diabetic foot education and risks from peripheral neuropathy. Neuropathy * The patient is currently managing diabetic neuropathy with gabapentin, which helps alleviate symptoms of burning, numbness, and tingling. Regular foot checks and avoiding walking barefoot are advised to prevent injuries due to reduced sensation. Medications: New ciclopirox 8% Apply to fungal toenails daily. Remove build-up at the end of the week. 1 appl topical BEDTIME 4 months 6.6 mL 3RF Coding Level of Care Code Est Pt Level 3 (87885) Diagnoses Tinea unguium B35.1 Type 2 diabetes mellitus with diabetic polyneuropathy, with long-term current use of insulin E11.42; Z79.4 Diabetes mellitus long term care administrator insulin use: with assisted use Time Spent (min) 15 Comment prescribed new medication
[2025-08-28 08:55] VITALS: BMI 40.6
== END 2025-08-28 09:08 | disposition home or self-care (01) ==
LOC: HO.HPODS 08:45
PROVIDERS: PCP Internal Medicine; Visit Provider Student in an Organized Health Care Education/Training Program
DX: B35.1 Tinea unguium (principal); E11.42 Type 2 diabetes mellitus with diabetic polyneuropathy; Z79.4 Long term (current) use of insulin
CPT/HCPCS: 99213

== ENCOUNTER → 2025-08-28 08:44 | Outpatient (BNVA) | payer MEDICARE, SELFPAY | PROVIDERS: PCP Internal Medicine; Visit Provider Student in an Organized Health Care Education/Training Program | DX: B35.1 Tinea unguium (principal); E11.42 Type 2 diabetes mellitus with diabetic polyneuropathy; Z79.4 Long term (current) use of insulin | CPT/HCPCS: 99212 ==

== ENCOUNTER 2025-09-18 08:02 | Outpatient (REF) | payer MEDICARE, SELFPAY ==
--- OUTSIDE RECORDS SUMMARY | 2025-04-17 03:20 | XMS_ITS ---
Author Organization [facility] Address [address] [place] [address] Care Team Providers Care Human Services Assistant Name Role Phone Yuriy GARCIA, Lyndsay Primary Care Provider Bang Moore [phone] REASON FOR VISIT sccreening,hx polyps Encounters Encounter Location Date Provider Diagnosis [facility] Outpatient [address] [place] [phone] 04/17/2025 Bang Little Plan Of Treatment No Information Progress Notes * CHANTELLE FRIEDMANDOB: [birth year] (75 yo F)Acc No.[id number]:04/17/2025 COLON WITH MAC Patient: CHANTELLE VIDAL Provider: Melany Little MD :1950 A ge:74 Y S ex:Female Date:04/17/2025 Address:[address] [place] [address] [facility] Pcp:Lyndsay Yan MD Subjective: * Chief Complaints: * S ccreening,hx polyps Billing Information: * Procedure Codes: * The named appointment provid er may or may not be the originator of this progress note, and it is not deemed complete until electronically signed by the appointment provider. Sign off status: Pending * Provider: Melany Little MD Date: 0 04/17/2025 Generated for Cristopher gomez/Ashwini/eTransmitting on: 11/19/2024 08:14 AM EST
--- OUTSIDE RECORDS SUMMARY | 2025-09-18 08:14 | XMS_ITS | Encounter Summary ---
Author Organization [facility] Address [address] [place] [address] Phone Care Team Providers Care Auctioneer Automobile Name Role Phone Ellen Yan MD Primary Care Provider Diandra vailable Encounter Details Date Type Department Care Team (Late st Contact Info) Description 04/01/2022 Telephone [facility] [address] [place] [address] Jim Santiago MD [address] [place] [address], [address] [address] Social History Tobacco Use Types Packs/Day Years [...] over the weekend. Pls call her at [phone] * Telephone Encounter - Kassi Sotelo - 04/01/2022 10:50 AM EDT Pt called, her insurance will not cover the script for joaquín. It needs a PA please advise Thank you documented in this encounter Plan of Treatment Upcoming Encounters Date Type Department Care Team (Late st Contact Info) Description 09/28/2025 1:30 PM EST Office Visit [facility] [address] [address] Sorin Carpio MD [address] [phone] documented as of this encounter Visit Diagnoses Not on filedocumented in this encounter Care Teams Auctioneer Automobile Relationship Specialty Start Date End Date Ellen Yan MD [address] [place] [address] PCP - General Internal Medicine 12/03/20 documented as of this encounter
--- OUTSIDE RECORDS SUMMARY | 2025-09-18 08:15 | XMS_ITS | Patient Health Record ---
Author Organization [facility] Address [address] [place] [address] Care Team Providers Care Contract Coordinator Name Role Phone Yuryi GARCIA, Lyndsay Primary Care Provider Bang Moore Unavailable [phone] Allergies Allergen (clinical drug ingredient) Drug/Non Drug Allergy documented on EMR Reaction Allergy Type Onset Date Status codeine Codeine Sulfate Unknown Drug Allergy A ctive semaglutide Ozempic Unknown Drug Allergy Activ e Results Component Value Reference Range Flag Notes Pathology (Not yet reviewed by provider) Interpretation: Performing Lab:[facility], [address] [place] [phone] Notes/Report: Glucose, Whole Blood Reviewed date:04/17/2025 11:53:49 PM Interpretation: Performing Lab:[facility], [address] [place] [phone] Notes/Report: Glucose, Whole Blood 168 60-115 mg/dL H MT TER #: [id number] Reason For Referral No Information Medications Medication SIG (Take, Route, Frequency, Duration) Notes Start Date End Date Status Prevacid 15 MG Capsule Delayed Release 1 capsule Orally Once a day; Duration: 30 day(s) Active Toujeo Max SoloStar 300 UNIT/ML Solution Pen-injector INJECT 40 UNIT (0.1333 ML) SUBCUTANEOUSLY BEDTIME Subcutaneous; Duration: 45 Not-Taking/P RN Bumetanide 1 MG Tablet TAKE 1 TABLET BY MOUTH EVERY DAY Oral; Duration: 90 Active sulfaSALAzine 500 MG Tablet Delayed Release TAKE 1 TABLET BY MOUTH EVERY 12 HOURS Oral; Duration: 30 Not-Taking/P RN Aspirin Adult Low Dose 81 MG Tablet Delayed Release 1 tablet Orally Once a day; Duration: 30 day(s) Not-Taking/P RN CoQ-10 100 MG Capsule 1 capsule with a meal Orally Once a day; Duration: 30 day(s) Active V-Go 40 - Kit as directed Acti ve Leflunomide 10 MG Tablet Oral; Duration: 30 Active ProAir HFA 108 (90 Base) MCG/ACT Aerosol Solution 2 puffs as needed Inhalation every 6 hrs as needed Active Humira (2 Pen) 40 MG/0.4ML Auto-injector Kit 0.4 mL Subcutaneous every 2 weeks Active Lisinopril 20 MG Tablet Oral; Duration: 90 Active Gabapentin 300 MG Capsule TAKE 1 CAPSULE BY MOUTH AT BEDTIME Oral; Duration: 90 Active Pravastatin Sodium 40 MG Tablet TAKE 1 TABLET BY MOUTH EVERY DAY Oral; Duration: 90 Active Leflunomide 10 MG Tablet Oral; Duration: 90 Days Active Vitamin D 50 MCG (1999 UT) Tablet 1 tablet Orally Once a day Active Insulin Lispro 100 UNIT/ML Solution Injection; Duration: 85 Active Immunizations Vaccine Route Administration Date Status Comme nts Influenza Unknown 07/12/2019 Administered Influenza Unknown 07/29/2022 Administered Social History Tobacco Use: Social History Observation Description Date Details (start date - stop date) Former Smoker NA - NA Social History Drugs/Alcohol: Social Info Question Answer Notes Alcohol Screen Did you have a drink containing alcohol in the past year? No Points 0 Interpretation Negative Tobacco Use: Social Info Question Answer Notes Tobacco Use/Smoking Patient is a former smoker When did you stop smoking? over 30 years ago How long has it been since you last smoked? > 10 years Additional Details Category Social Info Options Details Miscellaneous: Marital status: single Occupation: retired Section Notes: Nonsmoker; no alcohol Nonsmoker; no alcohol Nonsmoker; no alcohol Nonsmoker; no alcohol Problems Problem Type SNOMED Code ICD Code Onset Dates Problem Status W/U Status Risk Notes Problem Colon cancer screening (321413682) Colon cancer screening (Z12.11) Active confirmed Problem Epigastric pain (10121568) Epigastric abdominal pain (R10.13) Active confirmed Problem History of adenomatous polyp of colon (116756837) History of adenomatous polyp of colon (Z86.010) Active confirmed Problem Diarrhea (59095507) Diarrhea (R19.7) Active con firmed Problem Change in bowel habit (76110382) Change in bowel habit (R19.4) Active confirmed Problem History of polyp of colon (situation) (203020955) Personal history of colonic polyps (Z86.010) Active confirmed Problem Cholelithiasis without obstruction (70680469) Calculus of gallbladder without cholecystitis without obstruction (K80.20) Active confirmed Problem Gastroesophageal reflux disease without esophagitis (495829641) Gastroesophageal reflux disease without esophagitis (K21.9) Active confirmed Problem Preprocedural examination (369105298271435) Preprocedural examination (Z01.818) Active confirmed Problem Diarrhea (36843470) Diarrhea, unspecified type (R19.7) Active confirmed Problem Right upper quadrant pain (057854575) RUQ abdominal pain (R10.11) Active confirmed Problem Right upper quadrant pain (922184318) RUQ pain (R10.11) Active confirmed Problem Disorder of kidney and/or ureter (328482426) Left renal mass (N28.89) Active confirmed Problem Abnormal ultrasound of left kidney (R93.422) Active confirmed Vital Signs Blood pressure diastolic 11 mm Hg 01/12/2025 Height 62 in 01/12/2025 Blood pressure systolic 111 mm Hg 01/12/2025 Weight 230 lbs 01/12/2025 BMI 42.06 kg/m2 01/12/2025 Procedures Procedure Date Ordered Date Performed Result Body Sit e COLONOSCOPY 01/12/2025 N/A Encounters Encounter Location Date Provider Diagnosis [facility] [address] [place] [phone] 04/17/2025 Bang Little [facility] [address] [place] [phone] 01/12/2025 Bang Little Personal history of colonic polyps Z86.010 ; Preprocedural examination Z01.818 and Colon cancer screening Z12.11 [facility] [address] [place] [phone] 04/17/2025 Bang Little Assessments Encounter Date Diagnosis (ICD Code) Assessment Notes Treatment Notes Treatment Clinical Notes Section Notes 01/12/2025 Personal history of colonic polyps (ICD-10 - Z86.010) Overall, aPola appears well and is not having any [...] w DIFF 09/02/2019 CBC w DIFF 03/24/2023 CBC w DIFF 04/05/2023 CT ABD & [...] Date [employer] [address] [place] [phone] [id number] ELDER PAOLA Self - patient is the insured Medical (General) History Medical History History ICD Code IDDM Elevated Cholesterol Hypertension Rheumatoid arthritis Urinary incontinence- mild GERD-neg EGD in 2000 Neg. colonoscopy in 2000 and 08/2010 Denies MT,CVA,Lung disease,renal disease Bronchitis Edema of ankles Colonoscopy in 11/2019 with a single tubular adenoma removed; no colitis, biopsies neg for microscopic colitis Neg. celiac disease labs in 2018 Left renal cancer found inci dentally during a CT scan I ordered in 2022 for some abdominal pain. The cancer was treated with cryoablation and has been stable. Surgical History Surgery Date(Month/Year) Back surgery Cataract removal Tonsillectomy [facility] by Dr Dickson 10/2019
--- OUTSIDE RECORDS SUMMARY | 2025-09-18 08:15 | XMS_ITS | Encounter Summary ---
Author Organization [facility] Address [address] [facility] [address] [place] [address] Phone Care Team Providers Care Convict Guard Name Role Phone Ellen Yan MD Primary Care Provider Diandra vailable Encounter Details Date Type Department Care Team (Late Contact Info) Description 04/24/2021 Documentation Only [facility] [address] [place] [address] Meena Kemp [place] Social History [...] documented as of this encounter Functional Status documented as of this encounter Plan of Treatment Upcoming Encounters Date Type Department Care Team (Late Contact Info) Description 09/28/2025 1:30 PM EST Office Visit [facility] [address] [place] [phone] Sorin Carpio MD [address] [facility] [address] [place] [address] documented as of this encounter [...] U/L Total Bilirubin 0.3 MG/DL eGFR Non-Afr Eritrean 35 Total Protein, Serum 6.2 Blood specimen [...] on filedocumented in this encounter Care Teams Convict Guard Relationship Specialty Start Date End Date Ellen Yan MD [address] [place] [address] PCP - General Internal Medicine 12/03/20 documented as of this encounter
--- OUTSIDE RECORDS SUMMARY | 2025-09-18 08:15 | XMS_ITS | Clinical Summary ---
Author Organization [facility] Address [address] [facility] [address] [place] [address] Phone Care Team Providers Care Strategic Planning Director Name Role Phone Ellen Yan MD Primary Care Provider Diandra vailable Allergies Active Allergy Reactions Criticality Noted Date [...] Only [facility] [address] [place] [address] Sorin Carpio [...] Visit [facility] [address] [place] [address] Sorin Carpio MD [address] [address] Health Maintenance Due Date Last Done [...] with health care provider. DIAGNOSTIC USE: The [place] [employer] (ADA) and the World Health [...] Supplement 1 Testing performed or reported by [facility], a Service of [facility], [address] [place] [id number] Lamont Ortega MD, Primary School Teacher [facility]# [id number] Blood specimen (specimen) Venous blood / Unknown 02/04/2023 10:21 AM EDT 02/04/2023 10:34 AM EDT Jim Santiago MD LAB BLOOD ORDERABLES Final Re sult [facility] from Last 3 Months or Most Recently Relevant to Health Maintenance Insurance [employer] Care Teams Strategic Planning Director Relationship Specialty Start Date End Date Ellen Yan MD [address] [place] [address] PCP - General Internal Medicine 12/03/20
[2025-09-18 10:19] LABS: MANUAL DIFF FLAG NO
[2025-09-18 10:25] LABS: Hematocrit 38.3 % (37.0-47.0); Hemoglobin 12.0 g/dl (12.0-16.0); Imm Gran Abs Auto 0.05 X10*3/uL (0.00-0.03); Imm Gran Pct Auto 0.6 % (0.0-0.4); Lymphocytes Absolute Auto 1.7 X10*3/uL (1.2-4.9); Mean Corpuscular HGB Conc 31.3 g/dl (31.0-35.0); Mean Corpuscular Hemoglobin 28.0 pg (27.0-33.0); Mean Corpuscular Volume 89.3 fL (80.0-98.0); NRBC Abs Auto 0.000 X10*3/uL (0.0-0.012); NRBC Pct Auto 0.0 /100WBC (0.0-0.2); Platelet Count 281 X10*3/uL (160-400); Red Blood Count 4.29 X10*6/uL (4.20-5.50); White Blood Count 9.0 X10*3/uL (4.8-10.8)
[2025-09-18 10:32] LABS: Appearance Urine Clear; Glucose Urine UA Negative (Negative); PH 5.5 (5.0-9.0); Specific Gravity - Urine 1.015 (1.005-1.025); UMIC TRIGGER UA YES
[2025-09-18 10:43] LABS: Microalbum/Creatinine Ratio Ur 11.7 ug/mg cr (<30); Total Protein Urine Random < 7 mg/dL (<12)
[2025-09-18 11:25] LABS: Parathyroid Hormone Intact 265.4 pg/mL (8.7-77.1)
[2025-09-18 11:37] LABS: Anion Gap 12 (12-20); Blood Urea Nitrogen 40 mg/dL (9-16); Calcium 9.4 mg/dL (8.4-10.2); Carbon Dioxide 26 mmol/L (22-29); Chloride 109 mmol/L (96-108); Estimated Glomerular Filt Rate 30; Ferritin 80 ng/mL (10-250); Iron 81 mcg/dL (30-160); Magnesium 2.0 mg/dL (1.6-2.6); Percent Iron Saturation 31 % (15-50); Potassium 5.3 mmol/L (3.3-5.1); Sodium 142 mmol/L (135-145); Total Iron Binding Capacity 262 mcg/dL (228-428); Unsaturated Iron Binding 181 ug/dL; Uric Acid 9.7 mg/dL (2.4-5.7)
[2025-09-20 17:47] LABS: Calcium, Random Urine 0.6 mg/dL
== END 2025-09-18 08:03 | disposition home or self-care (01) ==
LOC: HO.HMGCLDS 08:02
PROVIDERS: PCP Internal Medicine; Visit Provider Internal Medicine
DX: Z13.1 Encounter for screening for diabetes mellitus (principal); E83.9 Disorder of mineral metabolism, unspecified; N18.30 Chronic kidney disease, stage 3 unspecified
CPT/HCPCS: 36415; 80048; 81001; 82043; 82306; 82310; 82570; 82728; 83036; 83540; 83735; 83970; 84100; 84156; 84550; 85025

== ENCOUNTER 2025-10-02 07:41 | Outpatient (REF) | payer MEDICARE, SELFPAY ==
--- NOTE | ~2025-10-02 | XR_ITS ---
EXAMINATION: XR CHEST 2 VIEWS HISTORY: R05.9 - Cough, unspecified COMPARISON: Comparison is made with the prior examination dated 09/10/2022. FINDINGS: PA and lateral views of the chest are submitted. The lungs are expanded and clear. There is no pleural effusion, pneumothorax, or pulmonary vascular congestion. The heart is normal in size. There is mild degenerative disc disease of the spine. XR/XR chest 2V IMPRESSION: No acute cardiopulmonary abnormality. Electronically signed by: Bang Martin MD 10/02/2025 08:44 AM EST
[2025-10-02 11:28] LABS: Resp Syncy Virus RNA Qual PCR NEGATIVE (Negative); SARS COV2 PCR INHOUSE NEGATIVE (Negative)
== END 2025-10-02 07:42 | disposition home or self-care (01) ==
LOC: HO.HMGCX 07:41
PROVIDERS: PCP Internal Medicine; Visit Provider Physician Assistant Medical
DX: R05.1 Acute cough (principal); R09.89 Other specified symptoms and signs involving the circulatory and respiratory systems
CPT/HCPCS: 71046; 87637; 94640; 99212

== ENCOUNTER 2025-10-02 07:41 | Outpatient (AMB) | payer MEDICARE, SELFPAY ==
--- OUTSIDE RECORDS SUMMARY | 2025-04-17 03:20 | XMS_ITS ---
Author Organization [facility] Address [address] [place] [address] Care Team Providers Care Trial Attorney Name Role Phone Yuriy GARCIA, Lyndsay Primary Care Provider Bang Moore [phone] REASON FOR VISIT sccreening,hx polyps Encounters Encounter Location Date Provider Diagnosis [facility] [place] Outpatient [address] [place], [place] [phone] 04/17/2025 Bang Little Plan Of Treatment No Information Progress Notes * CHANTELLE FRIEDMANDOB: [birth year] (75 yo F)Acc No.[id number]:04/17/2025 COLON WITH MAC Patient: CHANTELLE VIDAL Provider: Melany Little MD :1950 A ge:74 Y S ex:Female Date:04/17/2025 Address:[address] [place] [address] [facility] Pcp:Lyndsay Yan MD Subjective: * Chief Complaints: * S ccreening,hx polyps Billing Information: * Procedure Codes: * The named appointment provid er may or may not be the originator of this progress note, and it is not deemed complete until electronically signed by the appointment provider. Sign off status: Pending * Provider: Melany Little MD Date: 0 04/17/2025 Generated for Cristopher gomez/Ashwini/eTransmitting on: 12/03/2024 07:43 AM EST
--- OUTSIDE RECORDS SUMMARY | 2025-09-28 13:30 | XMS_ITS | Encounter Summary ---
Author Organization [facility] Address [address] [address] Phone Care Team Providers Care Plaster Caster Name Role Phone Ellen Yan MD Primary Care Provider Diandra vailable Reason for Visit * Reason Comments Stage 3 chronic kidney disease, not othe rwise specified * Consultation (Routine) - Authorized Specialty Diagnoses / Procedures Referred By Arabella roman Referred To Contact Nephrology Diagnoses CKD Procedures OFFICE VISITS Ellen Yan MD Phone: tel: Sorin Carpio MD Phone: tel: fax: Referral ID Status Reason Start Date Expiration Date V isits Requested Visits Authorized [id number] Authorized 10/12/2023 10/11/2078 6 6 Encounter Details Date Type Department Care Team (Late st Contact Info) Description 09/28/2025 1:30 PM EST Office Visit [facility] [address] [place] [address] Sorin Carpio MD [address] [address] Stage 3 chronic kidney disease, not otherwise specified (HCC) (Primary Dx) Social History Tobacco Use Types Packs/Day Years [...] on file documented as of this encounter Last Filed Vital Signs Vital Sign Reading Time Taken Comments Blood Pressure 132/78 09/28/2025 1:53 PM EST Pulse 78 09/28/2025 1:53 PM EST Temperature - - Respiratory Rate - - Oxygen Saturation 96% 09/28/2025 1:53 PM EST Inhaled Oxygen Concentration - - Weight 101 kg (223 lb) 09/28/2025 1:53 PM EST Height - - Body Mass Index 40.79 08/05/2023 9:40 AM EDT documented in this encounter Functional Status * BP Answer Date of Assessment Author 132/78 09/28/2025 1:53 PM EST Cole, N ixilu * Pulse Answer Date of Assessment Author 78 09/28/2025 1:53 PM EST Cole, N ixilu * SpO2 Answer Date of Assessment Author 96 09/28/2025 1:53 PM EST Cole, N ixilu * Weight Answer Date of Assessment Author 3568 09/28/2025 1:53 PM EST Cole, N ixilu * BP Location Answer Date of Assessment Author Right upper arm 09/28/2025 1:53 PM EST Cole, N ixilu * BP Answer Date of Assessment Author 132/78 09/28/2025 1:53 PM EST Cole, N ixilu * Weight Answer Date of Assessment Author 3568 09/28/2025 1:53 PM EST Cole, N ixilu * BP Location Answer Date of Assessment Author Right upper arm 09/28/2025 1:53 PM EST Cole, N ixilu documented as of this encounter Progress Notes * Sorin Carpio MD - 09/28/2025 1:30 PM EST Images from the original note were not included. Patient Name: Paola Vargas, Female Date of : 1950, 75 y.o. Date: 09/28/2025 History of Present Illness Paola Vargas is a 75 y.o. female with hx of morbid obesity HTN and DM ~ 23 yrs, RA, asked to see for elevated creat. 1.69---> 1.46( ) Has a monoclonal protein and enlarged lymph node groin that was bx at . [facility] followed Dr Duke Ramirez Lt Renal mass RCC had cryoablation , follows with [facility] for Urology Domo lao 8mm in CT chest from - following with Dr.Rodriguez- durant - Rheumatoid arthritis being managed with adalimumab. 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 Respiratory: Negative for cough and shortness of breath. Cardiovascular: Negative for chest pain, palpitations and leg swelling. Gastrointestinal: Negative for abdominal pain, nausea and vomiting. Genitourinary: Negative for dysuria, frequency, hematuria and urgency. Medication List Current Outpatient Medications Medication Sig Dispense Refill adalimumab (HUMIRA) 40 MG/0.8ML Prefilled Syringe Kit Inject 40 mg under the skin 1 (one) time bumetanide (BUMEX) 1 MG tablet Take 1 mg by mouth 1 (one) time each day gabapentin (NEURONTIN) 300 MG capsule Take 300 mg by mouth 1 (one) time each day HumaLOG 100 UNIT/ML solution INJECT UP TO 70 UNITS WITH PATCH PUMP DAILY SUBCUTANEOUSLY DAILY Insulin Disposable Pump (V-Go 40) kit USE UP TO 76 UNITS OF INSULIN VIA V GO 40 DIRECTED DAILY IN VITRO 30 DAYS lansoprazole (PREVACID) [address] capsule Take 15 mg by mouth 1 (one) time each day before breakfastDo not crush or chew. lisinopril 20 MG tablet Take 1 tablet (20 mg total) by mouth 1 (one) time each day 90 tablet 3 Mounjaro 2.5 MG/0.5ML solution auto-injector 2.5 Units pravastatin (PRAVACHOL) 40 MG tablet Take 40 mg by mouth at bed time Toujeo Max SoloStar 300 UNIT/ML solution pen-injector INJECT 40 UNITS SUBCUTANEOUSLY AT BEDTIME Calcifediol ER 30 MCG capsule controlled-release Take 30 mcg by mouth 1 (one) time each day 30 capsule 11 No current facility-administered medications for this visit. Allergy List Allergies Allergen Reactions Codeine Shortness of breath Ozempic (0.25 Or 0.5 Mg-Dose) [Semaglutide(0.25 Or 0.5mg-Dos)] Penicillins GI intolerance Upset stomach Physical Exam BP 132/78 (BP Location: Right upper arm, Patient Position: Sitting, BP Cuff Size: Large adult) Pulse 78 Wt 223 lb (101 kg) SpO2 96% BMI 40.79 kg/m?? Vitals reviewed. Constitutional: She is oriented to person, place, and time. She appears well- developed. No distress. Central obesity Cardiovascular: Normal rate, regular rhythm and normal heart sounds. She exhibits no edema. Pulmonary/Chest: Effort normal and breath sounds normal. No respiratory distress. Abdominal: Soft. There is no abdominal tenderness. Musculoskeletal: Normal range of motion. Neurological: She is alert and oriented to person, place, and time. Skin: Skin is warm and dry. Labs Chemistry Lab Units 09/18/25 1013 09/18/25 1010 01/04/24 0000 SODIUM mmol/L -- 142 140 POTASSIUM mmol/L -- 5.3* 4.9 CO2 mmol/L -- 26 28 BUN mg/dL -- 40* 34* CREATININE mg/dL -- 1.66* 1.46* CHLORIDE mmol/L -- 109* 106.0 EGFR -- 30 -- HEMOGLOBIN g/dl 12.0 -- -- HEMATOCRIT % 38.3 -- -- PLATELETS AUTO X10*3/uL 281 -- -- Bone Mineral Lab Units 09/18/25 1013 09/18/25 1010 01/04/24 0000 CALCIUM mg/dL -- 9.4 9.5 PHOSPHORUS mg/dL -- 3.4 -- PTH pg/mL 265.4* -- -- VITAMIN D ng/mL -- 43.1 -- MAGNESIUM mg/dL -- 2.0 -- Urine Lab Units 09/18/25 1003 PROT/CREAT RATIO UR TNP ALB MG/G CREAT UR ug/mg cr 11.7 Iron Studies Lab Units 09/18/25 1010 FERRITIN ng/mL 80 TIBC mcg/dL 262 IRON SATURATION % 31 Renal US- RIGHT KIDNEY: 12.1 x 4.6 x 4.0 cm (SAG x AP x TRV). Upper pole 0.2 cm calculus. No hydronephrosis. Renal cortical thickness is normal. Limited visualization. 1.9 cm pole pole cyst with benign features. There is no indication for follow-up imaging. LEFT KIDNEY: 9.1 x 3.6 x 3.2 cm (SAG x AP x TRV). No hydronephrosis. No renal calculi. Renal cortical thickness is normal. Limited visualization. 1.3 x 1.2 x 1.3 cm left renal upper pole mass. Ultrasound of 04/01/2023 demonstrated a 1.4 x 1.1 x 1.[address] abd KIDNEYS AND URETERS: There is asymmetric atrophy of the left kidney. Postprocedural changes involving the lateral upper pole of the left kidney. Zone of ablation measures 1.4 x 1.5 cm. Left perinephric stranding. No organized fluid collection. No left hydronephrosis. 2.1 cm hypodensity lower pole right kidney that is hyperdense onprecontrast imaging demonstrates no significant enhancement. This likely represents a proteinaceous or hemorrhagic cyst. No righthydronephrosis. Assessment & Plan 1. 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 BP controlled today Was on lokelma samples. Advised not to make a fist on blood draws. recheck bmp off of lokelma have been ok. Has mild upper limit calcium levels with elevated pth 214 ( ) with low phos - 2.6- - based on 24 hr urine studies - The Ca/Cr clearance ratio is less than 0.01( 0.0054) indicating that more than 99 percent of the filtered calcium has been reabsorbed ( influence of PTH) In patients with primary hyperparathyroidism, the Ca/Cr clearance ratio is most often >0.02. 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 Plan lisinopril we will keep on for renal protection, unable to tolerate sglt2i Cont glp1 Counselled about low k diet due to hypoaldosteronism Cont bumex 1mg once a day. No edema today . Recommend 2d echo. Renal mass fu with urology asymptomatic Switch from cholecalciferol to calcifediol as there is data to show better pth control in this situation Orders Placed This Encounter Protein, Total, Random Urine w/Creatinine (Protein/Creat Ratio) Uric Acid Hemoglobin A1c CBC and Differential Basic Metabolic Panel Urinalysis with microscopic Urine Albumin / Creatinine Ratio Vitamin D 25 Hydroxy PTH, Intact Magnesium Phosphorus Cystatin C w/GFR Calcifediol ER 30 MCG capsule controlled-release Return in about 6 months (around 03/29/2026). Sorin Carpio MD documented in this encounter Plan of Treatment Upcoming Encounters Date Type Department Care Team (Late st Contact Info) Description 03/29/2026 1:30 PM EDT Office Visit [facility] [address] [place] [address] Sorin Carpio MD [address] [facility] [address] [place] [address] Scheduled Orders Name Type Priority Associated Diagnoses Orde r Schedule Protein, Total, Random Urine w/Creatinine (Protein/Creat Ratio) Lab Routine Stage 3 chronic kidney disease, not otherwise specified (HCC) Expected: 03/29/2026 (Approximate), Expires: 10/29/2026 Uric Acid Lab Routine Stage 3 chronic kidney disease, not otherwise specified (HCC) Expected: 03/29/2026 (Approximate), Expires: 10/29/2026 Hemoglobin A1c Lab Routine Stage 3 chronic kidney disease, not otherwise specified (HCC) Expected: 03/29/2026 (Approximate), Expires: 10/29/2026 CBC and Differential Lab Routine Stage 3 chronic kidney disease, not otherwise specified (HCC) Expected: 03/29/2026 (Approximate), Expires: 10/29/2026 Basic Metabolic Panel Lab Routine Stage 3 chronic kidney disease, not otherwise specified (HCC) Expected: 03/29/2026 (Approximate), Expires: 10/29/2026 Urinalysis with microscopic Lab Routine Stage 3 chronic kidney disease, not otherwise specified (HCC) Expected: 03/29/2026 (Approximate), Expires: 10/29/2026 Urine Albumin / Creatinine Ratio Lab Routine Stage 3 chronic kidney disease, not otherwise specified (HCC) Expected: 03/29/2026 (Approximate), Expires: 10/29/2026 Vitamin D 25 Hydroxy Lab Routine Stage 3 chronic kidney disease, not otherwise specified (HCC) Expected: 03/29/2026 (Approximate), Expires: 10/29/2026 PTH, Intact Lab Routine Stage 3 chronic kidney disease, not otherwise specified (HCC) Expected: 03/29/2026 (Approximate), Expires: 10/29/2026 Magnesium Lab Routine Stage 3 chronic kidney disease, not otherwise specified (HCC) Expected: 03/29/2026 (Approximate), Expires: 10/29/2026 Phosphorus Lab Routine Stage 3 chronic kidney disease, not otherwise specified (HCC) Expected: 03/29/2026 (Approximate), Expires: 10/29/2026 Cystatin C w/GFR Lab Routine Stage 3 chronic kidney disease, not otherwise specified (HCC) Expected: 03/29/2026 (Approximate), Expires: 10/29/2026 documented as of this encounter Visit Diagnoses Diagnosis Stage 3 chronic kidney disease, not otherwise specified (HCC)- Primary documented in this encounter Care Teams Plaster Caster Relationship Specialty Start Date End Date Ellen Yan MD [address] [place] [address] PCP - General Internal Medicine 12/03/20 documented as of this encounter
--- OUTSIDE RECORDS SUMMARY | 2025-10-02 07:43 | XMS_ITS | Patient Health Record ---
Author Organization [facility] Address [address] [place] [address] Care Team Providers Care Work From Home Name Role Phone Yuriy GARCIA, Lyndsay Primary Care Provider Bang Moore Unavailable [phone] Allergies Allergen (clinical drug ingredient) Drug/Non Drug Allergy documented on EMR Reaction Allergy Type Onset Date Status codeine Codeine Sulfate Unknown Drug Allergy A ctive semaglutide Ozempic Unknown Drug Allergy Activ e Results Component Value Reference Range Flag Notes Glucose, Whole Blood Reviewed date:04/17/2025 11:53:49 PM Interpretation: Performing Lab:[facility], [address] [place] [id number] Notes/Report: Glucose, Whole Blood 168 60-115 mg/dL H NE TER #: [id number] Pathology (Not yet reviewed by provider) Interpretation: Performing Lab:[facility], [address] [place] [id number] Notes/Report: Reason For Referral No Information Medications [...] Status Risk Notes Problem Colon cancer screening (148930126) Colon cancer screening (Z12.11) Active confirmed Problem Epigastric pain (46364308) Epigastric abdominal pain (R10.13) Active confirmed Problem History of adenomatous polyp of colon (519436040) History of adenomatous polyp of colon (Z86.010) Active confirmed Problem Diarrhea (54177601) Diarrhea (R19.7) Active con firmed Problem Change in bowel habit (74513155) Change in bowel habit (R19.4) Active confirmed Problem History of polyp of colon (situation) (595953803) Personal history of colonic polyps (Z86.010) Active confirmed Problem Cholelithiasis without obstruction (18173451) Calculus of gallbladder without cholecystitis without obstruction (K80.20) Active confirmed Problem Gastroesophageal reflux disease without esophagitis (447867320) Gastroesophageal reflux disease without esophagitis (K21.9) Active confirmed Problem Preprocedural examination (777410162383391) Preprocedural examination (Z01.818) Active confirmed Problem Diarrhea (29948606) Diarrhea, unspecified type (R19.7) Active confirmed Problem Right upper quadrant pain (563271253) RUQ abdominal pain (R10.11) Active confirmed Problem Right upper quadrant pain (689317062) RUQ pain (R10.11) Active confirmed Problem Disorder of kidney and/or ureter (853032342) Left renal mass (N28.89) Active confirmed Problem Abnormal ultrasound of left kidney (R93.422) Active confirmed Vital Signs Blood pressure diastolic 11 mm Hg 01/12/2025 Height 62 in 01/12/2025 Blood pressure systolic 111 mm Hg 01/12/2025 Weight 230 lbs 01/12/2025 BMI 42.06 kg/m2 01/12/2025 Procedures Procedure Date Ordered Date Performed Result Body Sit e COLONOSCOPY 01/12/2025 N/A Encounters Encounter Location Date Provider Diagnosis [facility] Outpatient [address] [place] [phone] 04/17/2025 Bang Little [facility] [address] [place] [phone] 01/12/2025 Bang Little Personal history of colonic polyps Z86.010 ; Preprocedural examination Z01.818 and Colon cancer screening Z12.11 [facility] [address] [place] [phone] 04/17/2025 Bang Little Assessments Encounter Date Diagnosis [...] Date [employer] [address] [place] [phone] [id number] ELDER PAOLA Self - patient is the insured Medical (General) History Medical History History ICD Code IDDM Elevated Cholesterol Hypertension Rheumatoid arthritis Urinary incontinence- mild GERD-neg EGD in 2000 Neg. colonoscopy in 2000 and 08/2010 Denies [place],CVA,Lung disease,renal disease Bronchitis Edema of ankles Colonoscopy [...]
--- OUTSIDE RECORDS SUMMARY | 2025-10-02 07:43 | XMS_ITS | Encounter Summary ---
Author Organization [facility] Address [address] [facility] [address] [place] [address] Phone Care Team Providers Care Width Stripper Name Role Phone Ellen Yan MD Primary Care Provider Diandra vailable Encounter Details Date Type Department Care Team (Late Contact Info) Description 04/24/2021 Documentation Only [facility] [address] [facility] [address] [place] [address] Meena Kemp MA Social History [...] Department Care Team (Late Contact Info) Description 03/29/2026 1:30 PM EDT Office Visit [facility] [address] [place] [address] Sorin Carpio MD [address] [facility] [address] [place] [address] documented as of this encounter [...] U/L Total Bilirubin 0.3 MG/DL eGFR Non-Afr Citizen Of [place] 35 Total Protein, Serum 6.2 Blood specimen [...] on filedocumented in this encounter Care Teams Width Stripper Relationship Specialty Start Date End Date Ellen Yan MD [address] [place] [address] PCP - General Internal Medicine 12/03/20 documented as of this encounter
--- OUTSIDE RECORDS SUMMARY | 2025-10-02 07:43 | XMS_ITS | Encounter Summary ---
Author Organization [facility] Address [address] [address] Phone Care Team Providers Care Sharepoint Application Developer Name Role Phone Ellen Yan MD Primary Care Provider Diandra vailable Reason for Visit * Reason Comments Med Change Request Encounter Details Date Type Department Care Team (Late Contact Info) Description 09/28/2025 Refill [facility] [address] [place] [phone] Sorin Carpio MD [address] [address] Social History Tobacco Use Types Packs/Day Years [...] Office Visit [facility] [address] [place] [address] Sorin Carpio MD [address] [address] documented as of this encounter Visit Diagnoses Not on filedocumented in this encounter Care Teams Sharepoint Application Developer Relationship Specialty Start Date End Date Ellen Yan MD [address] [place] [address] [place] [address] PCP - General Internal Medicine 12/03/20 documented as of this encounter
--- OUTSIDE RECORDS SUMMARY | 2025-10-02 07:43 | XMS_ITS | Clinical Summary ---
Author Organization [facility] Address [address] [address] Phone Care Team Providers Care [employer] Executive Director Name Role Phone Ellen Yan MD [...] PATCH PUMP DAILY SUBCUTANEOUSLY DAILY 4 Active Mounjaro 2.5 MG/0.5ML solution auto-injector 2.5 Units 5 Active Calcifediol ER 30 MCG capsule controlled-rel ease Take 30 mcg by mouth 1 (one) time each day 30 capsule 11 5 026 Active Active Problems Problem Noted Date Diagnosed [...] Encounters Date Type Department Care Team Description 09/28/2025 1:30 PM EST Office Visit [facility] [address] [place] [address] Sorin Carpio MD Stage 3 chronic kidney disease, not otherwise specified (HCC) (Primary Dx) 09/28/2025 Refill [facility] [address] [place] [address] Sorin Carpio MD 08/25/2025 Orders Only [facility] [address] [place] [address] Sorin Carpio MD Stage 3 chronic kidney [...] (223 lb) 09/28/2025 1:53 PM EST Height 157.5 cm (5' 2 ) 08/05/2023 9:40 AM EDT Body Mass Index 40.79 08/05/2023 9:40 AM EDT Plan of Treatment Upcoming Encounters Date Type Department Care Team (Late st Contact Info) Description 03/29/2026 1:30 PM EDT Office Visit [facility] [address] [place] [address] Sorin Carpio MD [address] [facility] [address] [place] [id number] Health Maintenance Due Date Last Done Comments Breast Cancer Screening 1950 Colorectal Cancer Screening: Annual FOBT 1999 Colorectal Cancer Screening: Colonoscopy 1999 Colorectal Cancer Screening: Sigmoidoscopy 1999 Pneumococcal Vaccine: 50+ Years (2 of 2 - PPSV23, PCV20, or PCV21) 08/24/2017 06/29/2017 Diabetes: Ophthalmology Exam 01/24/2021 Diabetes: Pedal Pulse Checked 01/24/2021 Diabetes: Sensory Foot Exam 01/24/2021 Diabetes: Visual Foot Exam 01/24/2021 Influenza Vaccine (#1) 2025 , 06/21/2023, 06/08/2021, Additional history exists Diabetes: Hemoglobin A1C 12/17/2025 09/18/2025, 01/11 Pneumococcal Vaccine: Peds (0 to 5 Years) and At-Risk Patients (6 to 49 Years) Discontinued 06/29/2017 Hepatitis B Vaccine Aged Out No longe r eligible based on patient's age to complete this topic Procedures Procedure Name Priority Date/Time Associated Diagnosis Comments PTH, INTACT (HC) Routine 09/18/2025 10:1 3 AM EST CBC AND DIFFERENTIAL Routine 09/18/2025 10:13 AM EST Stage 3 chronic kidney disease, not otherwise specified (HCC) 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 PHOSPHATE ( PHOSPHORUS) Routine 09/18/2025 10:10 AM EST Stage 3 chronic kidney disease, not otherwise specified (HCC) 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 MAGNESIUM Routine 09/18/2025 10:10 AM EST Stage 3 chronic kidney disease, not otherwise specified (HCC) 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 VITAMIN D 25 HYDROXY Routine 09/18/2025 10:10 AM EST Stage 3 chronic kidney disease, not otherwise specified (HCC) 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 BASIC METABOLIC PANEL Routine 09/18/2025 10:10 AM EST Stage 3 chronic kidney disease, not otherwise specified (HCC) 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 HEMOGLOBIN A1C Routine 09/18/2025 10:10 AM EST Stage 3 chronic kidney disease, not otherwise specified (HCC) 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 IRON PANEL (FE, TIBC, TSAT) Routine 09/18/2025 10:10 AM EST Stage 3 chronic kidney disease, not otherwise specified (HCC) 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 FERRITIN Routine 09/18/2025 10:10 AM EST Stage 3 chronic kidney disease, not otherwise specified (HCC) 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 URIC ACID Routine 09/18/2025 10:10 AM EST Stage 3 chronic kidney disease, not otherwise specified (HCC) 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 ALBUMIN, URINE, RANDOM Routine 09/18/2025 10:03 AM EST CALCIUM, URINE, RANDOM Routine 09/18/2025 10:03 AM EST Stage 3 chronic kidney disease, not otherwise specified (HCC) 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 URINALYSIS WITH MICROSCOPIC Routine 09/18/2025 10:03 AM EST Stage 3 chronic kidney disease, not otherwise specified (HCC) 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 PROTEIN / CREATININE RATIO, URINE Routine 09/18/2025 10:03 AM EST Stage 3 chronic kidney disease, not otherwise specified (HCC) 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 from Last 3 Months Results * (ABNORMAL) PTH, Intact (09/18/2025 10:13 AM EST) Parathyroid Hormone, Intact 265.4(H) 8.7 - 77.1 pg/mL See order comments 09/18/2025 10:1 3 AM EST 09/18/2025 10:13 AM EST us Sorin Carpio MD LAB BLOOD ORDERABLES Final Result [place] See order comments [place] [address] * (ABNORMAL) CBC and Differential (09/18/2025 10:13 AM EST) WBC 9.0 4.8 - 10.8 X10*3/uL See order comments RBC 4.29 4.20 - 5.50 X10*6/uL See order comments Hgb 12.0 12.0 - 16.0 g/dl See order comments Hematocrit 38.3 37.0 - 47.0 % See order comments MCV 89.3 80.0 - 98.0 fL See order comments MCH 28.0 27.0 - 33.0 pg See order comments MCHC 31.3 31.0 - 35.0 g/dl See order comments RDW 13.8 11.0 - 16.0 % See order comments Platelets 281 160 - 400 X10*3/uL See order comments MPV 11.0 9.4 - 12.3 fL See order comments Neutrophils % Auto 65.3 45 - 73 % See order comments Immature Granulocytes 0.6(H) 0.0 - 0.4 % See order comments Lymphocytes Relative 19.2(L) 20 - 40 % See order comments Monocytes 10.5 2 - 11 % See order comments Eosinophils Relative 3.6 0 - 4 % See order comments Basophils Relative 0.8 0 - 2 % See order comments nRBC Count 0.0 0.0 - 0.2 /100WBC See order comments Neutrophils Absolute 5.9 2.0 - 8.3 x10*3/uL See order comments Immature Grans (Absolute) 0.05(H) 0.00 - 0.03 X10*3/uL See order comments Lymphocytes Absolute 1.7 1.2 - 4.9 X10*3/uL See order comments Monocytes Absolute 0.9 0.1 - 1.2 X10*3/uL See order comments Eosinophils Absolute 0.3 0.0 - 0.4 X10*3/uL See order comments Basophils Absolute 0.1 0.0 - 0.2 X10*3/uL See order comments NRBC Absolute 0.000 0.0 - 0.012 X10*3/uL See order comments Blood Venous blood / Unknown 09/18/2025 10:13 AM EST 09/18/2025 10:13 AM EST Sorin Carpio MD LAB BLOOD ORDERABLES Final Result [place] See order comments [place] [address] * Iron Panel (Fe, TIBC, TSAT) (09/18/2025 10:10 AM EST) Iron 81 30 - 160 mcg/dL See order comments TIBC 262 228 - 428 mcg/dL See order comments Iron Saturation (TSat) 31 15 - 50 % See order comments UIBC 181 ug/dL See order comments Blood Venous blood / Unknown 09/18/2025 10:10 AM EST 09/18/2025 10:10 AM EST Sorin Carpio MD LAB BLOOD ORDERABLES Final Result [place] See order comments [place] [address] * Vitamin D 25 Hydroxy (09/18/2025 10:10 AM EST) Vitamin D, 25-Hydroxy 43.1 >30 ng/mL See order comments Comment: Health Based Reference Values* < 20 ng/mL Deficient 20-30 ng/mL Insufficient > 30 ng/mL Sufficient *Gumaro RODRIGUEZ. N Engl J Med. 2007;357:266-280 There is no well-established upper level of normal vitamin D levels. Some laboratories use 50 ng/mL as an upper limit of normal. However, toxicity is patient-dependent and may occur at any level. Careful correlation with the patient's presentation is necessary and, if there is concern for vitamin D toxicity, treatment should be considered irrespective of the serum level. Care must be taken in interpreting Vitamin D results from different laboratories and methodologies. Published data demonstrated that results from patients undergoing hemodialysis may show a negative bias when tested with various automated 25-OH vitamin D assays when compared to LC-MS/MS. When testing samples from patients whose predominant form of Vitamin D is Vitamin D2, such as patients receiving Vitamin D2 supplementation, results that are subtherapeutic should be confirmed with another method such as LC-MS/MS. Blood Venous blood / Unknown 09/18/2025 10:10 AM EST 09/18/2025 10:10 AM EST us Sorin Carpio MD LAB BLOOD ORDERABLES Final Result Performing Organization Address [facility] de Phone Number [place] See order comments [place] [address] * (ABNORMAL) Uric Acid (09/18/2025 10:10 AM EST) Uric Acid 9.7(H) 2.4 - 5.7 mg/dL See order comments Blood Venous blood / Unknown 09/18/2025 10:10 AM EST 09/18/2025 10:10 AM EST us Sorin Carpio MD LAB BLOOD ORDERABLES Final Result Performing Organization Address [facility] Co de Phone Number [place] See order comments [place] [address] * Phosphorus (09/18/2025 10:10 AM EST) Phosphorus, Serum 3.4 2.7 - 4.5 mg/dL See order comments Blood Venous blood / Unknown 09/18/2025 10:10 AM EST 09/18/2025 10:10 AM EST us Sorin Carpio MD LAB BLOOD ORDERABLES Final Result Performing Organization Address [facility] Co de Phone Number [place] See order comments [place] [address] * Magnesium (09/18/2025 10:10 AM EST) Magnesium 2.0 1.6 - 2.6 mg/dL See order comments Blood Venous blood / Unknown 09/18/2025 10:10 AM EST 09/18/2025 10:10 AM EST us Sorin Carpio MD LAB BLOOD ORDERABLES Final Result Performing Organization Address [facility] Phone Number [place] See order comments [place] [address] * (ABNORMAL) Hemoglobin A1c (09/18/2025 10:10 AM EST) Hemoglobin A1C 7.1(H) <6.0 % See o rder comments Comment: Hemoglobin A1C Reference Range Adults: 4.8 - 6.0 % Non diabetic: < 6.0 % Goal: < 7.0 % Additional Action Suggested: > 8.0 % Note: Hemoglobin A1c results are invalid for patients with abnormal amounts of HbF. Blood transfusions may impact the HbA1c concentration in the patient sample. Estimated Average Glucose 157 mg/dL See order comments Comment: eAG = Estimated average glucose which is %A1C expressed as average glucose, using the formula of the [id number]-[id number] Average Glucose study (ADAG), Diabetes Care, Vol.31,#8, May. 2007 Blood Venous blood / Unknown 09/18/2025 10:10 AM EST 09/18/2025 10:10 AM EST us Sorin Carpio MD LAB BLOOD ORDERABLES Final Result Performing Organization Address [facility] Co de Phone Number [place] See order comments [place] [address] * Ferritin (09/18/2025 10:10 AM EST) [facility] Ferritin 80 10 - 250 ng/mL See order comments Blood Venous blood / Unknown 09/18/2025 10:10 AM EST 09/18/2025 10:10 AM EST Sorin Carpio MD LAB BLOOD ORDERABLES Final Result Performing Organization Address [facility] Phone Number [place] See order comments [place] [address] * (ABNORMAL) Basic Metabolic Panel (09/18/2025 10:10 AM EST) [facility] Sodium 142 135 - 145 mmol/L See order comments Potassium 5.3(H) 3.3 - 5.1 mmol/L See order comments Chloride 109(H) 96 - 108 mmol/L See order comments Bicarbonate (CO2) 26 22 - 29 mmol/L See order comments Anion Gap 12 12 - 20 See order comments BUN 40(H) 9 - 16 mg/dL See order comments Creatinine Serum 1.66(H) 0.5 - 1.4 mg/dL See order comments eGFR (Calc) 30 See orde r comments Comment: Chronic Kidney Disease: Estimated GFR < 60 mL/min/1.73m2 Severe Kidney Disease: Estimated GFR < 15 mL/min/1.73m2 Glucose 113 60 - 115 mg/dL See order comments Calcium 9.4 8.4 - 10.2 mg/dL See order comments Blood Venous blood / Unknown 09/18/2025 10:10 AM EST 09/18/2025 10:10 AM EST us Sorin Carpio MD LAB BLOOD ORDERABLES Final Result Performing Organization Address [facility] de Phone Number [facility] See order comments [place] [address] * Protein, Total, Random Urine w/Creatinine (Protein/Creat Ratio) (09/18/2025 10:03 AM EST) Protein Urine Random <7 <12 mg/dL See order comments Protein/Creatin ine Ratio, Urine TNP <0.2 See order comments Comment: Unable to calculate urine protein creatinine ratio due to low creatinine or protein result. Unable to calculate urine protein creatinine ratio due to low creatinine or protein result. Urine Urine specimen obtained by clean catch procedure / Unknown 09/18/2025 10:03 AM EST 09/18/2025 10:03 AM EST Soirn Carpio MD LAB URINE ORDERABLES Final Result [place] See order comments [place] [address] * Albumin, urine, random (09/18/2025 10:03 AM EST) Creatinine, Urine 85.12 mg/dL Se e order comments Urine Microalbumin 10.0 mg/L See order comments Microalbumin/Crea tinine Ratio 11.7 <30 ug/mg cr See order comments Comment: Albumin/Creatinine Ratio Reference Ranges: Normal: < 30 ug/mg creatinine Microalbuminuria: 30 - 300 ug/mg creatinine Clinical Albuminuria: > 300 ug/mg creatinine 09/18/2025 10:0 3 AM EST 09/18/2025 10:03 AM EST Sorin Carpio MD LAB URINE ORDERABLES Final Result Performing Organization Address [facility]/ZIP Co de Phone Number [place] See order comments [place] [address] * Calcium, urine, random (09/18/2025 10:03 AM EST) Urine Calcium Random 0.6 mg/dL See order comments Comment: Reference Range Not established THIS TEST WAS PERFORMED AT: [facility] [address] [place] [phone] KARI ETIENNE MD Urine Urine specimen obtained by clean catch procedure / Unknown 09/18/2025 10:03 AM EST 09/18/2025 10:03 AM EST Sorin Carpio MD LAB URINE ORDERABLES Final Result Performing Organization Address [facility]/ZIP Co de Phone Number [place] See order comments [place] [address] * (ABNORMAL) Urinalysis with microscopic (09/18/2025 10:03 AM EST) Color Urine Yellow See orde r comments Appearance Urine Clear See order comments pH Urine 5.5 5.0 - 9.0 See order comments Glucose Urine Negative Negative mg/dL See order comments Blood, Urine Negative Negative See ord er comments Specific [place] Urine 1.015 1.005 - 1.025 See order comments Protein Urine Negative Neg-Trace mg/dL See order comments Ketones, Urine Negative Negative mg/dL See order comments Nitrite, Urine Negative Negative See o rder comments Leukocyte Esterase Urine Trace(A) Negative See order comments RBC, Urine 0-2 0 - 2 /HPF See orde r comments WBC 6-10(A) 0 - 5 /HPF See order comments Squamous Epithelial, Urine 3-5 0 - 2 /HPF See order comments Bacteria, Urine 1+ None Seen See order comments Hyaline Casts, Urine 0-2 0 - 2 /LPF See order comments Urine Urine specimen obtained by clean catch procedure / Unknown 09/18/2025 10:03 AM EST 09/18/2025 10:03 AM EST Sorin Carpio MD LAB URINE ORDERABLES Final Result Performing Organization Address [facility] Co de Phone Number [place] See order comments [place] [address] from Last 3 Months Insurance [place] Care Teams [employer] Executive Director Relationship Specialty Start Date End Date Ellen Yan MD [address] [place] [address] PCP - General Internal Medicine 12/03/20
--- OUTSIDE RECORDS SUMMARY | 2025-10-02 07:43 | XMS_ITS | Encounter Summary ---
Author Organization [facility] Address [address] [place] [address] Phone Care Team Providers Care Jute Bag Clipper Name Role Phone Ellen Yan MD Primary Care Provider Diandra vailable Encounter Details Date Type Department Care Team (Late st Contact Info) Description 04/01/2022 Telephone [facility] [address] [place] [address] Jim Santiago MD [address] [place] [address], [address] [address] Social History Tobacco Use Types Packs/Day Years [...] over the weekend. Pls call her at [phone] * Telephone Encounter - Kassi Sotelo - 04/01/2022 10:50 AM EDT Pt called, her insurance will not cover the script for joaquín. It needs a PA please advise Thank you documented in this encounter Plan of Treatment Upcoming Encounters Date Type Department Care Team (Late st Contact Info) Description 03/29/2026 1:30 PM EDT Office Visit [facility] [place] [address] [place] [address] Sorin Carpio MD [address] [address] documented as of this encounter Visit Diagnoses Not on filedocumented in this encounter Care Teams Jute Bag Clipper Relationship Specialty Start Date End Date Ellen Yan MD [address] [place] [address] PCP - General Internal Medicine 12/03/20 documented as of this encounter
[2025-10-02 07:45] VITALS: BP 140/58; PULSE 63; RESP 20; TEMP 36.6; O2SAT 99; BMI 40.8
--- NOTE | 2025-10-02 07:45 | AM.OFFWIN_ITS ---
Intake Vital Signs 10/02/25 07:45 Height 5 ft 2 in Weight 223 lb BMI 40.8 BP 140/58 H Blood Pressure Location Rt brachial Position Sitting Respiration 20 Pulse 63 Pulse Source Pulse Oximeter Temp 97.8 F Temp Source Oral Pulse Oximetry (%) 99 Oxygen Delivery Method Room Air Intake Visit Reasons: EP cough, painful breathing 3 weeks, sob Intake Note: Patient presents c/o cough, SOB x3 weeks. Patient Tobacco Use Status: Former Tobacco user Allergies codeine (Codeine) Allergy (Severe, Verified 10/02/25 07:47) DIFFICULTY BREATHING Penicillins Adverse Reaction (Intermediate, Verified 10/02/25 07:47) stomach upset semaglutide (From Ozempic) Adverse Reaction (Verified 10/02/25 07:47) Vomiting HPI HPI Comments History of Present Illness Details History - The patient is a 75 year old female pr esenting with a cough and congestion ongoing for three weeks. - She reports that breathing feels as if she has smoked a pack of cigarettes and her muscles are sore from coughing. - Her symptoms worsened last night with coughing throughout the night. - She sometimes produces sputum with her cough. - She denies any fever, sore throat, ear pain, nausea, or vomiting. - She denies feeling like she is wheezin g or short of breath. - She has a history of chronic bronchiti s and has inhalers, including albuterol. - She sometimes receives antibiotics for her condition. - She is using cough drops for her sympt oms. - She has no sick contacts. - She is not a smoker. Physical Exam General: Cooperative, healthy appearing, comfortable and no acute distress Orientation/consciousness: Patient oriented x3 Limitations: No limitations Head: Normal to inspection Ears: Hearing grossly normal bilaterally, external ears normal and TM's normal bilaterally Nose: Normal external nose present, normal nares present, and no nasal discharge present. Face and sinus: Sinuses nontender to palpation. Mouth: Normal oral and palatal mucosa present and moist mucous membranes noted. Throat: Tonsils normal. Uvula is midline. Posterior oropharynx with erythema and no exudates. Eyes: Appearance normal, both eyes and all related structures Neck: Normal visual inspection, full ROM. No lymphadenopathy noted. Respiratory: Clear to auscultation bilaterally. Normal respiratory effort, able to speak in complete sentences. No respiratory distress, not tachypneic, no tripod positioning and no use of accessory muscles. Cardiovascular: Regular rate and rhythm. Normal S1 and S2 Skin: No rashes or lesions noted Patient was informed and verbally consented to the use of an ambient scribe for clinic note documentation during this visit [facility] Medical History Diabetic neuropathy associated with diabetes mellitus due to underlying condition Chronic bronchitis Adalimumab (Humira) long-term use Osteoarthritis of left knee Hyperparathyroid bone disease Hypogammaglobulinemia Trochanteric bursitis of both hips Leg pain, bilateral Herpes zoster vaccination declined COVID-19 vaccine dose declined Diabetic retinopathy Tubular adenoma of colon Osteopenia History of severe acute respiratory syndrome coronavirus 2 (SARS-CoV-2) disease Obesity due to excess calories 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 Postlaminectomy syndrome MGUS (monoclonal gammopathy of unknown significance) 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 mellitus) Diabetic retinopathy associated with type 2 diabetes mellitus CKD (chronic kidney disease) stage 3, GFR 30-59 ml/min halfway (current) use of insulin GERD (gastroesophageal reflux disease) Type 2 diabetes mellitus with diabetic polyneuropathy Essential hypertension Dyslipidemia Surgical History Hx of colonoscopy Hx laparoscopic cholecystectomy Hx of tonsillectomy Hx of cataract surgery History of back surgery Family History Mother Diabetes CVD (cardiovascular disease) HTN (hypertension) Father Hodgkin disease Brother Hodgkin disease Sister Pancreatic cancer Sister Lung cancer Non-Hodgkin lymphoma Paternal Uncle Colon cancer Social History Household Members: None Housing: Condominium Alcohol intake: never Patient Tobacco Use Status: Former Tobacco user Tobacco use type: Cigarette Cigarettes Per Day: 50 Years Smoked: 20 e-Cigarette/Vaping Use: Never Used Advance Directives Date on File: 02/08/22 service: No Current occupational status: retired Cognitive needs: No Hearing needs: No Vision needs: Yes Review of Systems Const All systems reviewed & are unremarkable except as noted in HPI and below Physical Exam Vital Signs: Last Vital Signs Temp 97.8 F 10/02/25 07:45 Pulse 63 10/02/25 07:45 Resp 20 10/02/25 07:45 BP 140/58 H 10/02/25 07:45 Pulse Ox 99 10/02/25 07:45 Oxygen Delivery Method Room Air 10/02/25 07:45 BMI result Body Mass Index 40.8 Office Procedures Nebulizer Treatment Nebulizer Treatment 87415-Pdorrxphn/MDI RX initial, or Nebulizer Subsequent Treatment Office Meds ipratropium 0.5 mg-albuterol 3 mg (2.5 mg base)/3 mL nebulization soln Performing Provider: Roxie Calvillo PA-C Performing Location: [facility] [place] [facility] Administered by: Roxie Calvillo PA-C on 10/02/25 08:11 Dose Route Admin Location Dispensed Lot Number Expiration Date [facility] [employer] 3 mL inhalation 3 mL h05/11/27 47188-830-61 [employer] Assessment & Plan Assessment & Plan (1) Cough: Code(s): R05.9 - Cough, unspecified Qualifiers: Cough type: acute Qualified Code(s): R05.1 - Acute cough Plan Most likely Acute Bronchitis vs URI vs covid vs flu vs RSV vs CAP plan - The patient presents with a three-week history of cough and congestion, concerning for an acute bronchitis exacerbation given her history of chronic bronchitis. - A chest x-ray will be obtained to rule out pneumonia. - A nasal swab will be collected to test for COVID-19, influenza, and RSV. - An in-office nebulizer breathing treatment will be administered to help open her airways. - A course of prednisone will be prescribed to reduce inflammation. - A Z-Naeem (azithromycin) will be prescribed for possible atypical pneumonia. - Prescriptions will be sent to the patient's pharmacy. Orders: Orders AMB Nebulizer Treatment Today R05.9 - Cough, unspecified SARS-CoV2/FLU/RSV Today R09.89 - Other specified symptoms and signs involving the circulatory and respiratory systems XR chest 2V Today R05.9 - Cough, unspecified Medications: New azithromycin For 250 mg dose pack: take 500 mg today (day 1), then 250 mg for 4 days (days 2-5) PO 6 tabs 0RF benzonatate 100 mg PO bid-tid PRN 21 caps 0RF Cough 7 days prednisone 40 mg (2 x 20 mg) PO DAILY 10 tabs 0RF 5 days Coding Level of Care Code Est Pt Level 4 (74809) Diagnoses Acute cough R05.1 Cough type: acute CPT Codes Nebulizer Treatment - Nebulizer Treatment, initial or subsequent: 73648- Nebulizer/MDI RX initial, or Nebulizer Subsequent Treatment ([id number])
== END 2025-10-02 08:44 | disposition home or self-care (01) ==
PROVIDERS: PCP Internal Medicine; Visit Provider Physician Assistant Medical
DX: R05.9 Cough, unspecified (principal); R05.1 Acute cough

== ENCOUNTER → 2025-10-02 08:31 | Outpatient (BNV) | payer MEDICARE, SELFPAY | PROVIDERS: PCP Internal Medicine; Visit Provider Radiology Diagnostic Radiology | DX: R05.9 Cough, unspecified (principal) | CPT/HCPCS: 71046 ==